=== PATIENT | female | born 1970 | race Caucasian/White ===

== ENCOUNTER → 2019-10-02 13:44 | Outpatient (CLI) | payer OTHER, SELFPAY ==
--- NOTE | ~2019-10-02 | US_ITS ---
US breast LT limited Indication: Follow-up left breast mass Procedure: High resolution ultrasound of the left breast Comparison: 04/03/2019 Findings: There is a 1.3 cm simple cyst at 8:00, 4 cm from the nipple. There is an adjacent 3 mm cyst . No suspicious masses are identified to suggest malignancy. Impression: 1: Left breast cysts. No sonographic evidence for malignancy. BI-RADS CATEGORY 2 - BENIGN FINDINGS Reviewed, dictated and finalized at location A. Impression: 1: Left breast cysts. No sonographic evidence for malignancy. BI-RADS CATEGORY 2 - BENIGN FINDINGS
== END ==
PROVIDERS: PCP Internal Medicine; Visit Provider Obstetrics & Gynecology Gynecology
DX: R92.8 Other abnormal and inconclusive findings on diagnostic imaging of breast (principal); N60.02 Solitary cyst of left breast
CPT/HCPCS: 76642

== ENCOUNTER → 2020-03-20 14:47 | Outpatient (CLI) | payer OTHER, SELFPAY ==
--- NOTE | ~2020-03-20 | US_ITS ---
US transvaginal DATE: 03/20/2020 15:24 INDICATION: Bilateral ovarian cysts TECHNIQUE: Transvaginal examination of the pelvis COMPARISON: None FINDINGS: The uterus measures 7.8 cm height, 3.3 cm AP and 4.1 cm transverse dimension. The central endometrial echo complex measures approximately 6 mm AP dimension. The ovaries are not well demonstrated. No pelvic mass or abnormal pelvic free fluid collection is det ected. IMPRESSION: Ovaries are not well demonstrated Reviewed, dictated and finalized at Location A. Reviewed, dictated and finalized at location A.
== END ==
PROVIDERS: Visit Provider Nurse Practitioner
DX: N83.201 Unspecified ovarian cyst, right side (principal); N83.202 Unspecified ovarian cyst, left side
CPT/HCPCS: 76830

== ENCOUNTER → 2020-04-22 18:18 | Outpatient (CLI) | payer OTHER, SELFPAY ==
--- NOTE | ~2020-04-22 | MM_ITS ---
EXAMINATION: MM screening salo BI w brittney HISTORY: Screening TECHNIQUE: Craniocaudal and mediolateral oblique 3-D tomosynthesis images were obtained and synthetic 2-D images were generated. CAD analysis was submitted and interpreted. COMPARISON: Comparison to multiple prior studies sequentially, with oldest reviewed study dated 11/2010. BREAST PARENCHYMAL COMPOSITION: There are scattered areas of fibroglandular density. FINDINGS: There is no evidence of suspicious mass, calcification, or architectural distortion to sugg est malignancy in either breast. There has been no suspicious interval change. IMPRESSION: 1. No mammographic evidence of malignancy. 2. Recommend routine screening mammography in one year. BI-RADS Category 1: Negative Reviewed, dictated and finalized at location A.
== END ==
PROVIDERS: PCP Internal Medicine; Visit Provider Nurse Practitioner
DX: Z12.31 Encounter for screening mammogram for malignant neoplasm of breast (principal)
CPT/HCPCS: 77063; 77067

== ENCOUNTER → 2021-05-09 09:57 | Outpatient (CLI) | payer OTHER, SELFPAY ==
--- NOTE | ~2021-05-09 | MM_ITS ---
EXAMINATION: MM screening salo BI w brittney HISTORY: Screening mammogram TECHNIQUE: Craniocaudal and mediolateral oblique 3-D tomosynthesis images were obtained and synthetic 2-D images were generated. CAD analysis was submitted and interpreted. COMPARISON: 04/22/2020 bilateral digital screening mammogram 10/02/2019 limited left breast ultrasound 04/03/2019 diagnostic bilateral mammogram and limited left breast ultrasound 03/27/2018 bilateral screening mammogram BREAST PARENCHYMAL COMPOSITION: There are scattered areas of fibroglandular density. FINDINGS: Chronic approximately 1 cm anterior lower inner quadrant left breast benign oil cyst with p eripheral eggshell calcification. There is no evidence of suspicious mass, calcification, or architec tural distortion to suggest malignancy in either breast. There has been no suspicious interval change . IMPRESSION: 1. No mammographic evidence of malignancy. 2. Recommend routine screening mammography in one year. BI-RADS Category 2: Benign finding(s). Reviewed, dictated and finalized at location A.
--- NOTE | ~2021-05-09 | DEXA_ITS ---
Bone Density Report Name: Vangie Yuen Age: 50 Sex: Female Ethnicity: White Date of : 1970 Indication: postmenopausal; screening for osteoporosis; parental hip fracture; Referring Provider: Lupillo, Nkechi Study: Bone densitometry was performed. Exam Date: May 09, 2021 Accession number: [id number] Bone Density: Region BMD T-score Z-score Classification AP Spine (L1-L4) 1.334 2.6 3.5 Normal Femoral Neck (Left) 1.206 3.2 4.1 Normal Total Hip (Left) 1.157 1.8 2.3 Normal Femoral Neck (Right) 1.049 1.8 2.7 Normal Total Hip (Right) 1.056 0.9 1.5 Normal Total Hip Mean 1.107 1.4 1.9 Normal World Health Organization criteria for BMD impression classify patients as: Normal (T-score at or above -1.0), Osteopenia (T-score between -1.0 and -2.5), or Osteoporosis (T-score at or below -2.5). 10-year Fracture Risk: FRAX not reported because: All T-scores for Spine Total, Hip Total, Femoral Neck at or above -1.0 Clinical Information Provided by Patient: Parent has had a hip fracture Has used the following medications: Vitamin D, Calcium Patient maximum height was 59.75 Menopause Age: 41 No regular weight bearing exercise Drinks caffeinated beverages Onset of menses at age 15 Number of children 2 Impression: The patient has normal bone mass. The patient has risk factors, including: parental hip fracture. Discussion: BONE DENSITY IS ABOVE THE MINIMUM DESIRABLE LEVEL AT ALL SKELETAL SITES TESTED. This patient?s bone mineral density is above the minimum desirable level (T-score -1.0 or better) at all sites measured. The patient should follow a healthful lifestyle (good nutrition with adequate calcium and vitamin D, and appropriate weight-bearing exercise). Follow-Up: Consider repeating this study in 5 years or sooner if there is some new clinical indication. Reported by: HREBERT on 05/09/2021 10:54:00 AM. Reviewed, dictated and finalized at location Jordan KELLEY
== END ==
PROVIDERS: PCP Internal Medicine; Visit Provider Nurse Practitioner
DX: Z12.31 Encounter for screening mammogram for malignant neoplasm of breast (principal); Z78.0 Asymptomatic menopausal state
CPT/HCPCS: 77063; 77067; 77080

== ENCOUNTER → 2022-06-28 15:19 | Outpatient (CLI) | payer OTHER, SELFPAY ==
--- NOTE | ~2022-06-28 | MM_ITS ---
EXAMINATION: MM screening salo BI w brittney HISTORY: Screening TECHNIQUE: Craniocaudal and mediolateral oblique 3-D tomosynthesis images were obtained and synthetic 2-D images were generated. CAD analysis was submitted and interpreted. COMPARISON: Comparison to multiple prior studies sequentially, with oldest reviewed study dated 04/18. BREAST PARENCHYMAL COMPOSITION: There are scattered areas of fibroglandular density. FINDINGS: There is no evidence of suspicious mass, calcification, or architectural distortion to sugg est malignancy in either breast. There has been no suspicious interval change. IMPRESSION: 1. No mammographic evidence of malignancy. 2. Recommend routine screening mammography in one year. BI-RADS Category 1: Negative Reviewed, dictated and finalized at location B. RVISOR PARTICLEBOARD
== END ==
PROVIDERS: Visit Provider Nurse Practitioner
DX: Z12.31 Encounter for screening mammogram for malignant neoplasm of breast (principal)
CPT/HCPCS: 77063; 77067

== ENCOUNTER 2024-01-18 16:48 | Emergency (ER) | payer OTHER, SELFPAY ==
--- NOTE | ~2024-01-18 | CT_ITS ---
CT abdomen pelvis w con Ordering provider: Khushbu Osborn APRN History: 53 years Female with . abdominal pain . Comparison: None. Technique: CT abdomen and pelvis with IV and without oral contrast. Automated exposure control and it erative reconstruction technique were employed. The dose-length product was 1599.14 mGy-cm. 100 mL Om nipaque 350 was given IV. Findings: VISUALIZED LOWER CHEST: Dependent atelectatic changes in the right lung base. UPPER ABDOMINAL ORGANS: Liver: Multiple cysts in the liver the largest measures 14 x 10 cm. Slightly hypodense area near to t he diaphragm on the right side which may be compressed tissue but hematoma cannot be excluded. Follow -up advised. Gallbladder: Normal. Spleen: Normal. Stomach/duodenum: Normal. Pancreas: Normal. Adrenals: Normal. Kidneys: Bilateral multiple. Tiny stone in the right and left kidney midpole. Renal cysts PELVIC ORGANS: The bladder is normal. Uterus is normal. BOWEL AND MESENTERY: Colon: No evidence of diverticulitis. Fecal material is seen in the colon. Appendix is not demonstrat ed. Small Bowel: Normal. No obstruction. Peritoneum/mesentery: No free air. Minimal free fluid seen in the pelvis. No mesenteric lymphadenopat hy. RETROPERITONEUM: Normal aorta. No retroperitoneal lymphadenopathy. MUSCULOSKELETAL: Superficial soft tissues: The superficial soft tissues are normal. Bones: Age appropriate degenerative changes of the spine. IMPRESSION: 1. No evidence of appendicitis, diverticulitis or intestinal obstruction. 2. Polycystic disease with cysts seen in the liver and both kidneys. Minimal free fluid in the pelvis. 3. Constipation 4. Minimal atelectatic changes in the right lung base. Reviewed, dictated and finalized at location A.
[2024-01-18 16:49] VITALS: BP 144/87; PULSE 97; RESP 16; TEMP 36.9; O2SAT 99
--- NOTE | 2024-01-18 17:42 | ED.GENADULT ---
HPI - General Adult General Chief complaint: Abdominal Pain <Khushbu Meléndez November, - Last Filed: 01/18/24 17:55> Stated complaint: impacted bowel <Khushbu Meléndez November, - Last Filed: 01/18/24 17:55> Time Seen by Provider: 01/18/24 17:42 <Khushbu Meléndez November, - Last Filed: 01/18/24 17:55> Focused HPI: Vangie Yuen is a 53 y/o female On January 07 between 8-10PM she started to have pain to her abdomen and right shoulder with a deep breath, She went to an OSH on January 08 she learned she had a 15cm cyst on liver - they drained it at a procedure place and had 750mls of fluid out which they believed it was a smaller one so they went back in and hit the 15cm one and drained a lot more fluid - she felt better then she started to have severe right shoulder pain and right lower abdominal pain so she was then admitted for pain control she was given narcotics for pain and now she has not had a BM since January 08, she states that she had to get another CT during her admission because she was having so much pain and they found a small bleed on her liver from the procedure and then they repeated the image and then noticed that the bleeding was up to a 'Medium' bleed - she states she was then d/c and they told her that this would happen and she would likely be in pain for 6-10 weeks She states her pain now is about as bad as it was when she was admitted in the hospital and now she is constipated she has tried enemas and suppositories at home without relief Last time she ate at 1100 GENERAL: no acute distress. HEAD: Normocephalic, atraumatic. CHEST: Clear to auscultation. ?No respiratory distress. HEART: Regular rate and rhythm.? NEURO: ?Alert and oriented x3. Patient screened in triage and initial orders placed.? ?Additional care and disposition to be based upon?diagnostic testing and treatment. <Khushbu Meléndez November, - Last Filed: 01/18/24 17:55> Focused HPI: Vangie Yuen is a 53 y/o female On January 07 between 8-10PM she started to have pain to her abdomen and right shoulder with a deep breath, She went to an OSH on January 08 she learned she had a 15cm cyst on liver - they drained it at a procedure place and had 750mls of fluid out which they believed it was a smaller one so they went back in and hit the 15cm one and drained a lot more fluid - she felt better then she started to have severe right shoulder pain and right lower abdominal pain so she was then admitted for pain control she was given narcotics for pain and now she has not had a BM since January 08, she states that she had to get another CT during her admission because she was having so much pain and they found a small bleed on her liver from the procedure and then they repeated the image and then noticed that the bleeding was up to a 'Medium' bleed - she states she was then d/c and they told her that this would happen and she would likely be in pain for 6-10 weeks She states her pain now is about as bad as it was when she was admitted in the hospital and now she is constipated she has tried enemas and suppositories at home without relief Last time she ate at 1100 GENERAL: no acute distress. HEAD: Normocephalic, atraumatic. CHEST: Clear to auscultation. ?No respiratory distress. HEART: Regular rate and rhythm.? NEURO: ?Alert and oriented x3. Patient screened in triage and initial orders placed.? ?Additional care and disposition to be based upon?diagnostic testing and treatment. <Akiko Elias PA-C - Last Filed: 01/18/24 20:30> Source: patient <Akiko Elias PA-C - Last Filed: 01/18/24 20:30> Mode of arrival: ambulatory <JONATHAN Chawla Last Filed: 01/18/24 20:30> Limitations: no limitations <Akiko Elias PA-C - Last Filed: 01/18/24 20:30> History of Present Illness HPI narrative: Agree with above MSE HPI. Patient has hx of Polycystic kidney disease. Reports procedures occurred in [facility] when she wa
[2024-01-18 18:14] VITALS: BP 145/98; PULSE 94; RESP 18; O2SAT 98
[2024-01-18 18:20] LABS: Basophils Absolute Auto 0.1 K/mm3 (0.0-0.1); Basophils Percent Auto 0.6 % (0.2-1.2); Eosinophils Absolute Auto 0.3 K/mm3 (0-0.3); Eosinophils Percent Auto 2.8 % (0-4.4); Hemoglobin 12.5 g/dL (12.0-15.0); Immature Granulocyte Percent A 1.1 % (0-0.5); Lymphocytes Absolute Auto 1.81 K/mm3 (0.9-3.2); Lymphocytes Percent Auto 19.9 % (18.3-44.2); Mean Corpuscular HGB Conc 33.8 g/dl (32-36); Mean Corpuscular Hemoglobin 28.3 pg (26-34); Mean Corpuscular Volume 83.9 fl (80-100); Mean Platelet Volume 10.8 fl (7.4-10.4); Monocytes Absolute Auto 0.5 K/mm3 (0.1-0.6); Monocytes Percent Auto 5.4 % (2.6-8.5); Neutrophils Absolute Auto 6.4 K/mm3 (1.3-6.7); Neutrophils Percent Auto 70.2 % (45.5-73.1); Platelet Count Result 329 k/mm3 (150-375); Red Blood Count 4.41 M/mm3 (4.2-5.4); Red Cell Distribution Width 14.6 % (11.5-14.5); White Blood Count 9.1 K/mm3 (4.5-10.0)
[2024-01-18 18:21] LABS: Appearance Urine Clear (Clear); Bilirubin Urine Negative (Negative); Blood Urine Negative (Negative); Color Urine Yellow (Yellow); Glucose Urine UA Negative (Negative); Ketones Urine Negative (Negative); Leukocyte Esterase Ur Negative LEU/UL (Negative); Nitrate Urine Negative (Negative); Protein Urine Negative (Negative); Specific Grav Ur 1.009 (1.001-1.035)
[2024-01-18 18:29] LABS: Alanine Aminotransferase 30 U/L (6-35); Albumin Level 4.6 g/dL (3.5-5.1); Alkaline Phosphatase 150 U/L (38-126); Anion Gap 7 mmol/L (4-12); Aspartate Amino Transferase 39 U/L (14-36); Bilirubin,Total 1.3 mg/dL (0.2-1.3); Blood Urea Nitrogen 15 mg/dL (7-17); Calcium 9.2 mg/dL (8.4-10.2); Carbon Dioxide 27 mmol/L (22-30); Chloride 104 mmol/L (98-107); Estimated CRCL calculation 77 ml/min; Estimated Glomerular Filt Rate 58; Glucose 108 mg/dL (65-110); Lipase 26 U/L (23-300); Potassium 4.5 mmol/L (3.4-5.0); Sodium 138 mmol/L (137-145)
[2024-01-18 18:30] LABS: Lactic Acid Reflex 1.1 mmol/L (0.7-2.0)
[2024-01-18 18:35] LABS: Add Urine Microscopic? NO
--- NOTE | 2024-01-18 19:19 | PC.NURSE ---
Assumed care of pt from Jo SALES.
[2024-01-18] MEDS: BISACODYL 5 MG TABLET EC PO (19:49)
[2024-01-18] MEDS: polyethylene glycoL 3350 17 GM POWD.PACK PO (19:50)
== END 2024-01-18 20:43 | disposition home or self-care (01) ==
PROVIDERS: Nurse Practitioner Family; Emergency Provider Physician Assistant; PCP Family Medicine
DX: K59.00 Constipation, unspecified (principal); S36.112A Contusion of liver, initial encounter; N18.9 Chronic kidney disease, unspecified; E11.22 Type 2 diabetes mellitus with diabetic chronic kidney disease
CPT/HCPCS: 36415; 74177; 80053; 81003; 83605; 83690; 85025; 99284; A9270; Q9967

== ENCOUNTER 2024-02-16 14:06 | Outpatient (CLI) | payer OTHER, SELFPAY ==
--- NOTE | ~2024-02-16 | US_ITS ---
EXAMINATION: US renal BI DATE: 02/16/2024 15:39 INDICATION: Polycystic kidney disease TECHNIQUE: Multiple ultrasound grayscale images of the kidneys were obtained. COMPARISON: None. FINDINGS: The right kidney measures 13.8 x 4.3 x 4.6 cm. The left kidney measures 14.9 x 6.6 x 5.8 cm. The kidn eys demonstrate normal echogenicity. There are multiple bilateral renal cysts. The largest on the rig ht measures 4.9 cm and the largest on the left measures 5.0 cm. There is no hydronephrosis in either kidney. No stones identified. The bladder is normal with bilateral ureteral jets visualized on color Doppler. IMPRESSION: 1. Multiple bilateral renal cysts. No hydronephrosis. Reviewed, dictated and finalized at location A.
== END 2024-02-16 14:07 | disposition home or self-care (01) ==
LOC: ANHIMG 14:09
PROVIDERS: PCP Family Medicine; Visit Provider Internal Medicine Nephrology
DX: Q61.3 Polycystic kidney, unspecified (principal); N18.31 Chronic kidney disease, stage 3a
CPT/HCPCS: 76775

== ENCOUNTER 2024-07-10 04:58 | Emergency (ER) | payer OTHER, SELFPAY ==
[2024-07-10 05:34] VITALS: O2SAT 96
[2024-07-10 05:46] VITALS: O2SAT 95
[2024-07-10 05:48] LABS: Add Urine Microscopic? YES; Appearance Urine Clear (Clear); Bacteria Urine None Seen /hpf; Bilirubin Urine Negative (Negative); Blood Urine 1+ (Negative); Color Urine Yellow (Yellow); Glucose Urine UA Negative (Negative); Ketones Urine Negative (Negative); Leukocyte Esterase Ur 3+ LEU/UL (Negative); Need Manual Microscopic Reviewed; Nitrate Urine Negative (Negative); Non Pathogenic Casts 0-2; Protein Urine Negative (Negative); RBC Urine 0-2 /hpf (0-2); Specific Grav Ur 1.003 (1.001-1.035); Squamous Epithelial Cell Urine None Seen /hpf (Few); Urobilinogen Urine 0.2 mg/dL (<2.0); WBC Urine 21-50 /hpf (0-3); pH Urine 6.5 (5.0-9.0)
[2024-07-10] MEDS: PHENAZOPYRIDINE HCL 100 MG TABLET 200 MG PO (06:05)
[2024-07-10 06:06] VITALS: BP 138/98; PULSE 87; RESP 15; O2SAT 99
[2024-07-10 06:08] LABS: Pregnancy On Board Control Positive; Urine Pregnancy Test Negative
--- NOTE | 2024-07-10 06:08 | ED.FEMALEGU ---
HPI - Female Genitourinary General Chief complaint: Urogenital-Female Stated complaint: UTI, burning, frequeny, kidney pain, nausea Time Seen by Provider: 07/10/24 05:54 History of Present Illness HPI Narrative: Patient is a 54-year-old female who presents to the emergency department this evening complaining of UTI symptoms. Patient states that she has been having dysuria for the past few days and now it radiates to her left kidney. Admits that she does have some constant left kidney ache. Denies any history of kidney stones. Pain is not colicky. Admits that the dysuria is an 8/10. Denies any fevers or chills. No additional symptoms or concerns at this time. Related Data Home Medications ?Medication ?Instructions ?Recorded ?Confirmed ?Last Taken ?Type bupropion HCl 200 mg tablet,12 hr 200 mg PO DAILY 03/22/23 07/06/24 Unknown History sustained-release hydroxyzine HCl 10 mg tablet 10 mg PO TID PRN 03/22/23 07/06/24 Unknown History hydroxyzine pamoate 50 mg capsule 50 mg PO QHS 03/22/23 07/06/24 Unknown History lamotrigine 200 mg tablet 200 mg PO BID 03/22/23 07/06/24 Unknown History (Lamictal) quetiapine 300 mg tablet (Seroquel) 300 mg PO QHS 04/11/24 07/06/24 Unknown History Allergies Allergy/AdvReac Type Severity Reaction Status Date / Time cefazolin Allergy Mild COUGHING Verified 07/06/24 10:55 FITS doxycycline Allergy Mild sob Verified 07/06/24 10:55 hydrocodone Allergy Mild Itching Verified 07/06/24 10:55 morphine Allergy Mild Itching Verified 07/06/24 10:55 oxycodone Allergy Mild Itching Verified 07/06/24 10:55 Sulfa (Sulfonamide Allergy Mild sob Verified 07/06/24 10:55 Antibiotics) Review of Systems Review of Systems: All systems are reviewed and are negative unless stated otherwise in the HPI. [facility] Past Medical History Medical History PTSD (post-traumatic stress disorder) Gastric leiomyoma Polycystic kidney Heel spur Left ankle sprain Arthritis LINDSAY (generalized anxiety disorder) Chronic kidney disease Diabetes mellitus Surgical History Surgical History H/O esophagogastroduodenoscopy S/P surgical manipulation of ankle joint Family History Family History Mother Alcohol abuse Father Malignant neoplasm of prostate Other Depression Hodgkin lymphoma Social History Social History Social History: Smoking status: Never smoker Second hand tobacco smoke exposure: No Alcohol intake: never Substance use: never Substance use type: does not use Do You Feel Safe in your Home?: Yes Lack of Transportation: No Lack of Food: Never True Current Housing: I Have Housing Concerned About Future Housing: No Difficulty Paying Gas/Electric Bills: No Difficulty Paying for Meds: No Currently Unemployed: YES Education: High School Diploma/GED Difficulty w/ Childcare or Family Care: No Living arrangements: with family Occupation/Education: unemployed Gender identity (if verbalized by the patient): Female Sexual Orientation (if Verbalized by the Patient): Straight or Heterosexual Exam Narrative: General: Alert, awake, afebrile, in no acute distress. HEENT: PERRL, no rhinorrhea, no post nasal drip, oropharynx clear. Neck: Trachea midline, no JVD, no lymphadenopathy. Cardiovascular: Regular rate and rhythm, no murmurs, rubs or gallops, no peripheral edema. Respiratory: Clear to auscultation bilaterally, no tachypnea, no wheezing, no rhonchi, no rubs, no respiratory distress. Abdomen: Soft, nontender, nondistended, no rebound, no guarding, no peritoneal signs. Musculoskeletal: No joint swelling or deformity, normal muscle tone. Skin: No rashes or petechia, no signs of infection. Psychiatric: Alert and oriented, normal behavior and judgment for situation. Neurological: Alert and oriented to person, place, and time. Follows all commands. No focal deficits, speech is clear and fluent. Course Vital Signs Vital signs: Vital Signs Pulse Oximetry 96 07/10/24 05:34 Pulse Rate 87 07/10/24 06:06 Respiratory Rate 15 07/10/24 06:06 Blood Pressure 138/98 H 07/10/24 06:06 Pulse Oximetry 99 07/10/24 06:06 MDM - Female Genitourinary MDM Narrative Medical decision making narrative: The patient was evaluated by myself in the emergency department. History is obtained from patient who is an independent historian and physical exam was performed. External medical records were reviewed at this time. Urinalysis did reveal urinary tract infection. Patient was administered 200 mg of oral Pyridium and her 1st dose of Macrobid in the emergency department. She was also administered 50 mg of IM Toradol and a Adrian pill to help with her pain while the antibiotic kicks in. Differential diagnosis considerations include urinary tract infection, pyelonephritis, kidney stones. Comorbidities impacting this visit include none. I have evaluated and discussed social determinants of health with the patient that could potentially impact subsequent diagnosis and treatment plans. On repeat assessment of the patient, reevaluation revealed that the patient is doing well and is in no acute distress. Patient symptoms have improved since she arrived to our emergency department. Repeat vital signs were all reviewed and noted to be stable. Differential diagnosis and treatment plan were discussed with the patient at bedside. Patient agrees with discussion and after shared medical decision making agrees with discharge. All questions were answered to the patient's satisfaction. Patient will follow up with her PCP in 3-5 days. Script for Macrobid and Pyridium were sent to patient's pharmacy to take as prescribed for her UTI. Patient was informed that if her symptoms do not improve within the next 2-3 days that she needs to call to find out her culture results as she may need to be placed on a different antibiotic ciprofloxacin given her multiple medication allergies and patient is agreeable with this plan. Patient was provided with strict return precautions and instructed to return to the emergency department if any new or worsening symptoms develop. The patient was discharged in stable condition. Lab Data Labs: Lab Results 07/10/24 Range/Units 05:10 Urine Color Yellow (Yellow) Urine Appearance Clear (Clear) Urine pH 6.5 (5.0-9.0) Ur Specific [place] 1.003 (1.001-1.035) Urine Protein Negative (Negative) mg/dL Urine Glucose (UA) Negative (Negative) mg/dL Urine Ketones Negative (Negative) mg/dL Ur Blood (Man) 1+ H (Negative) Urine Nitrate Negative (Negative) Urine Bilirubin Negative (Negative) Urine Urobilinogen 0.2 (<2.0) mg/dL Add Ur Microanalysis Reviewed Leukocyte Esterase Rfl 3+ H (Negative) ALEX/UL Urine RBC 0-2 (0-2) /hpf Urine WBC 21-50 H (0-3) /hpf Ur Squamous Epith Cells None seen (Few) /hpf Urine Bacteria None seen /hpf Urine Casts 0-2 Urine Test Negative Discharge Plan Discharge Clinical Impression: UTI (urinary tract infection) Patient Disposition: Home, Self-Care Condition: Improved Instructions: Antibiotic Form, Urinary Tract Infection in Women (ED) Additional Instructions: Please take the prescribed pyridium and antibiotic as instructed for UTI. Return to the emergency department if any new or worsening symptoms develop. Patient Language: Guatemalan Prescriptions: New nitrofurantoin monohyd/m-cryst [Macrobid] 100 mg capsule 100 mg PO Q12H 5 Days Qty: 10 0RF Rx Instructions: must administer with a meal/food phenazopyridine [Pyridium] 200 mg tablet 200 mg PO TID Qty: 5 0RF nitrofurantoin macrocrystal 100 mg capsule 100 mg PO Q12H Qty: 5 5RF Rx Instructions: must administer with a meal/food phenazopyridine [Pyridium] 200 mg tablet 200 mg PO TID Qty: 5 0RF hydrocodone-acetaminophen 5-325 mg tablet 1 tablet PO Q8H PRN (Reason: pain) Qty: 7 0RF No Action bupropion HCl 200 mg tablet sustained-release 12 hr 200 mg PO DAILY lamotrigine [Lamictal] 200 mg tablet 200 mg PO BID hydroxyzine pamoate 50 mg capsule 50 mg PO QHS hydroxyzine HCl 10 mg tablet 10 mg PO TID PRN quetiapine [Seroquel] 300 mg tablet 300 mg PO QHS montelukast 10 mg tablet See Rx Instructions .ROUTE .COMPLEX Qty: 90 1RF Dose Instruction: TAKE 1 TABLET BY MOUTH EVERY DAY Rx Instructions: TAKE 1 TABLET BY MOUTH EVERY DAY azelastine 137 mcg (0.1 %) spray,non-aerosol 137 mcg intranasal Q12H Qty: 30 0RF Rx Instructions: administer into each nostril fluticasone propionate 50 mcg/actuation spray,suspension 1 spray intranasal DAILY Qty: 16 0RF Rx Instructions: administer into each nostril furosemide 40 mg tablet See Rx Instructions .ROUTE .COMPLEX Qty: 90 1RF Dose Instruction: TAKE 1 TABLET BY MOUTH EVERY MORNING Rx Instructions: TAKE 1 TABLET BY MOUTH EVERY MORNING metformin 500 mg tablet extended release 24 hr See Rx Instructions .ROUTE .COMPLEX Qty: 90 1RF Dose Instruction: TAKE 1 TABLET BY MOUTH EVERY DAY AT BEDTIME Rx Instructions: TAKE 1 TABLET BY MOUTH EVERY DAY AT BEDTIME (DME) blood-glucose meter [OneTouch Verio Flex Start] Kit See Rx Instructions .Route Qty: 1 0RF Rx Instructions: use to monitor blood sugar daily (DME) lancets [OneTouch Delica Plus Lancet] 33 gauge misc See Rx Instructions .Route Qty: 100 0RF Rx Instructions: use to monitor blood sugar daily (DME) OneTouch Ultra Test Strip See Rx Instructions .Route Qty: 100 0RF Rx Instructions: use to monitor blood sugar daily Follow-up/Referrals: Marleni Jung MD [Primary Care Provider] - 3 Days Time of Disposition: 06:27
[2024-07-10] MEDS: HYDROcodone/acetaminophen (*CRX) 5-325 MG TABLET 1 TAB PO (06:17)
[2024-07-10] MEDS: NITROFURANTOIN MONOHYD MACROCR 100 MG CAP PO (06:17)
[2024-07-10] MEDS: KETOROLAC 30 MG/ML VIAL (*BKC) 15 MG IM (06:18)
--- OUTSIDE RECORDS SUMMARY | 2024-07-17 03:06 | XMS_ITS | Clinical Summary ---
Author Organization [facility] Address [address] [place] [address] Care Team Providers Care Male Impersonator Name Role Phone Marleni Jung Primary Care Provider [phone] Allergies Active Allergy Reactions Criticality Noted Date Comments Cefazolin Cough 01/09/2024 Doxycycline Cough 01/09/2024 Hydrocodone PRURITUS 01/10/2024 Sulfa Antibiotics RASH 01/09/2024 Medications Medication Sig Dispensed Refills Start Date End Date Status buPROPion (WELLBUTRIN SR) 200 MG 12 hr tablet Take 200 mg by mouth every morning. 12/19/2023 Active furosemide (LASIX) 40 MG tablet Take 40 mg by mouth every morning. 10/31/2023 Active hydrOXYzine (ATARAX) 10 MG tablet Take 10 mg by mouth 3 times daily as needed. 12/20/2023 Active hydrOXYzine (ATARAX) 50 MG tablet Take 50 mg by mouth at bedtime. 12/20/2023 Active lamoTRIgine (LaMICtal) 25 MG tablet Take 50 mg by mouth in the morning and 50 mg in the evening. 12/18/2023 Active metFORMIN (GLUCOPHAGE-XR) 500 MG 24 hr tablet Take 500 mg by mouth daily. 01/08/2024 Active montelukast (SINGULAIR) 10 MG tablet Take 10 mg by mouth daily. 10/30/2023 Active QUEtiapine (SEROquel XR) 300 MG 24 hr tablet Take 300 mg by mouth at bedtime. 12/22/2023 Active acetaminophen (TYLENOL) 500 MG tablet Take 2 tablets by mouth every 6 hours as needed for Pain. 01/11/2024 Active ketorolac (TORADOL) 10 MG tablet Take 1 tablet by mouth every 6 hours as needed for Pain. 20 tablet 01/11/2024 Active traMADol (ULTRAM) 50 MG tabletIndications: Abdominal pain, right upper quadrant,Hepatic cyst Take 1 tablet by mouth every 6 hours as needed for Pain. 10 tablet 01/11/2024 Active oxyCODONE-acetamin ophen (Percocet) 5-325 MG per tabletIndications: Referred abdominal pain Take 1-2 tablets by mouth every 6 hours as needed for Pain (Not to exceed 4000 mg acetaminophen per day). 13 tablet 01/13/2024 Active Active Problems Problem Noted Date Diagnosed Date Abdominal pain, right upper quadrant 01/09/2024 Surgical History Surgery Date Site/Laterality Comments CHOLECYSTECTOMY SECTION, LOW TRANSVERSE Medical History Medical History Date Comments Diabetes mellitus (CMD) Social History Tobacco Use Types Packs/Day Years Used Date Smoking Tobacco: Never Passive Smoke Exposure: Past Smokeless Tobacco: Never Tobacco Cessation:Counseling Given: Not Answered Alcohol Use Standard Drinks/Week Comments Yes 0 (1 standard drink = 0.6 oz pur e alcohol) Utilities Answer Date Recorded In the past 12 months has e [employer], gas, oil, or water [employer] threatened to shut off services in your home? No 01/09/2024 PHQ-2 Answer Date Recorded Initial depression screening score: 0 01/09/2024 Social Connections Answer Date Recorded How often do you see or talk to people that you care about and feel close to? (For example: talking to friends on the phone, visiting friends or family, going to spiritism or club meetings) 5 or more times a week 01/09/2024 Alcohol Use Answer Date Recorded Audit C Total Score 0 01/09/2024 Financial Resource Strain Answer Date R ecorded In the past year, have you o r any family members you live with been unable to get any of the following when it was really needed? Check all that apply. None 01/09/2024 Inadequate Housing Answer Date Recorded Social Determinants: Housing (Overall Score Help er) 0 01/09/2024 Food Insecurity Answer Date Recorded Within the past 12 months, y ou worried that your food would run out before you got money to buy more.? Never true 01/09/20 Within the past 12 months, t he food you bought just didn't last and you didn't have money to get more.?? Never true 01/09/20 Inadequate Housing Answer Date Recorded What is your living situation today??? I have a steady place to live 01/09/2024 Do you have problems with an y of the following??? None of the above 01/09/2024 Interpersonal Safety Answer Date Record ed How often does anyone, olesya quiroz family and friends, physically hurt you??? Never 01/09/2024 How often does anyone, olesya quiroz family and friends, insult or talk down to you? Never 01/09/2024 How often does anyone, olesya quiroz family and friends, threaten you with harm??? Never 01/09/2024 How often does anyone, olesya quiroz family and friends, scream or curse at you??? Never 01/09/2024 Transportation Needs Answer Date Record ed In the past 12 months, has l ack of reliable transportation kept you from medical appointments, meetings, work or from getting things needed for daily living??? No 01/09/2024 Sex and Gender Information Value Date Recorded Sex Assigned at Not on file Gender Identity Not on file Sexual Orientation Not on file Job Start Date Occupation Industry Not on file Not on file Not on file Obstetrics History Last Filed Vital Signs Vital Sign Reading Time Taken Comments Blood Pressure 135/77 01/13/2024 9:59 AM CDT Pulse 79 01/13/2024 9:59 AM CDT Temperature 36.6 ??C (97.9 ??F) 01/13/2024 6:49 AM CD T Respiratory Rate 16 01/13/2024 9:59 AM CDT Oxygen Saturation 94% 01/13/2024 9:59 AM CDT Inhaled Oxygen Concentration - - Weight 115.7 kg (255 lb 1.2 oz) 01/13/2024 6:49 AM CDT Height 175.3 cm (5' 9 ) 01/13/2024 6:49 AM CDT Body Mass Index 37.67 01/13/2024 6:49 AM CDT Plan of Treatment Health Maintenance Due Date Last Done Comments Diabetes A1C 1987 Diabetes Eye Exam 1987 Diabetes Foot Exam 1987 Microalbumin Ratio 1987 Hepatitis B Vaccine (1 of 3 - 19+ 3-dose series) 1988 Pap Smear 1990 Cervical Cancer Screening 1999 HPV/Cotest 1999 DTaP/Tdap/Td Vaccine (1 - Tdap) 07/19/2000 07/18/2000 Breast Cancer Screening 2009 CT Colonography 2014 Cologuard 2014 Colonoscopy 2014 Colorectal Cancer Screen 2014 Fecal Occult Blood 2014 Sigmoidoscopy 2014 Shingles Vaccine (1 of 2) 2019 COVID-19 Vaccine (1 - 2023- season) 2024 Influenza Vaccine (#1) 2024 05/24/2008 Depression Screening 01/08/2025 01/09/2024 GFR 01/12/2025 01/13/2024, 12/17, 01/10/2024, Additional history exists HPV Vaccine Aged Out No longer eligi ble based on patient's age to complete this topic Meningococcal Vaccine Aged Out No binta estefany eligible based on patient's age to complete this topic Pneumococcal Vaccine 0-64 Aged Out No longer eligible based on patient's age to complete this topic Procedures Procedure Name Priority Date/Time Associated Diagnosis Comments COMPREHENSIVE METABOLIC PANEL STAT 01/13/2024 7:10 AM CDT from Last 3 Months or Most Recently Relevant to Health Maintenance Results * (ABNORMAL) Comprehensive Metabolic Panel (01/13/2024 7:10 AM CDT) Fasting Status 01/13/2024 7:38 AM CDT [facility] Sodium 138 135 - 145 mmol/L 01/13/2024 7:38 AM CDT [facility] Potassium 3.6 3.4 - 5.1 mmol/L 01/13/2024 7:38 AM CDT [facility] Chloride 104 97 - 110 mmol/L 01/13/2024 7:38 AM CDT [facility] Carbon Dioxide 30 21 - 32 mmol/L 01/13/2024 7:38 AM CDT [facility] Anion Gap 8 7 - 19 mmol/L 01/13/2024 7:38 AM CDT [facility] Glucose 143(H) 70 - 99 mg/dL 01/13/2024 7:38 AM [facility] BUN 20 6 - 20 mg/dL 01/13/2024 7:38 AM [facility] Creatinine 1.16(H) 0.51 - 0.95 mg/dL 01/13/2024 7:38 AM [facility] Glomerular Filtration Rate 56(L) >=60 01/13/2024 7:38 AM [facility] Comment:eGFR 30-59 mL/min/1. 73m2 = Moderate decrease in kidney function. Stage 3 CKD (chronic kidney disease) or moderate kidney disease. Estimated GFR calculated using the CKD-EPI-R (2020) equation that does not include race in the creatinine calculation. BUN/Cr 17 7 - 25 01/13/2024 7:38 AM [facility] Calcium 8.9 8.4 - 10.2 mg/dL 01/13/2024 7:38 AM [facility] Bilirubin, Total 0.7 0.2 - 1.0 mg/dL 01/13/2024 7:38 AM [facility] GOT/AST 16 <=37 Units/L 01/13/2024 7:38 AM [facility] GPT/ALT 18 <64 Units/L 01/13/2024 7:38 AM [facility] Alkaline Phosphatase 119(H) 45 - 117 Units/L 01/13/2024 7:38 AM [facility] Albumin 3.0(L) 3.6 - 5.1 g/dL 01/13/2024 7:38 AM [facility] Protein, Total 6.9 6.4 - 8.2 g/dL 01/13/2024 7:38 AM [facility] Globulin 3.9 2.0 - 4.0 g/dL 01/13/2024 7:38 AM [facility] A/G Ratio 0.8(L) 1.0 - 2.4 01/13/2024 7:38 AM [facility] Blood VENOUS BLOOD SPECIMEN / Unknown Venipuncture / Unknown 01/13/2024 7:10 AM CDT 01/13/2024 7:15 AM CDT Nicholas Rios DO BKR LAB BLOOD ORDERA [facility] [address] [place] [address] from Last 3 Months or Most Recently Relevant to Health Maintenance Advance Directives * Selective Treatment/DNR (Latest Code Status on File) Date Activated Date Inactivated Comments 01/09/2024 3:54 PM 01/11/2024 1:38 PM Question Answer Comments CPR in case of Cardiac Arrest? No Intubation ( Pre-Arrest ) ? Yes Antiarrhythmics (Pre-Arrest)? Yes Cardioversion (Pre-Arrest)? Yes Vasopressor (Pre-Arrest)? Yes Care Teams Male Impersonator Relationship Specialty Start Date End Date Marleni Jung [address] [place] [phone] PCP - General Family Practice 01/09/24
--- OUTSIDE RECORDS SUMMARY | 2024-07-17 03:07 | XMS_ITS ---
Author Organization [facility] Address [address] [facility] [address] [address] Care Team Providers Care Embossing Tool Setter Name Role Phone Marleni Jung MD Primary Care Provider Terrie vailable Lucie Amaya Unavailable [phone] REASON FOR VISIT Refill Buproprion Social History Sex Assigned At : Social History Observation Description Sex Assigned At Female Encounters Encounter Location Date Provider Diagnosis [facility] [place] [address] [facility] [address] [place] [address] 07/04/2024 Lucie Amaya Plan Of Treatment Next Appt Details Provider Name:Lucie Amaya , 07/30/2024 09:45:00 AM, [address], [facility] [address], [place], [address], Progress Notes * GEOFFREY OSMANOB: [birth year] (54 yo F)Acc No.[id number]:07/04/2024 Patient:?JEIMY OSMANIE :1970???Age:54 Y???Sex:Female Address:[address], [place], [address] * true * Date:? Generated for Johni felix/Elsie/eTransmitting on:?07/17/2024 03:07 AM REFRIGERATED CARGO CLERK
--- OUTSIDE RECORDS SUMMARY | 2024-07-17 03:07 | XMS_ITS | Patient Health Summary ---
Author Organization [facility] Address [address] [facility] [place] [address] Care Team Providers Care Elect Equip Maint Eng Name Role Phone Marleni Jung MD Primary Care Provider + Note from [facility],non-owned Affiliates and Associated Physician Practices is amultiple site organization consisting of ambulatory clinics and hospital sitesin [place], [place], [place] and [place]. This disclosure is being madepursuant to the Care Everywhere program and may not contain all information available regarding this patient. Last updated 18.[facility] Social History Tobacco Use Types Packs/Day Years Used Date Smoking Tobacco: Never Assessed Sex and Gender Information Value Date Recorded Sex Assigned at Not on file Gender Identity Not on file Sexual Orientation Not on file Procedures * RUBEOLA ANTIBODY IGG(Performed 03/29/2012) * RUBELLA ANTIBODY IGG(Performed 03/29/2012) * MUMPS ANTIBODY IGG(Performed 03/29/2012) * HEPATITIS B SURFACE ANTIBODY(Performed 03/29/2012) Results * (ABNORMAL) RUBEOLA ANTIBODY IGG (03/29/2012 11:38 AM CDT) Measles (Rubeola) Antibody IgG 5.8(H) SEE BELOW IV [facility] Comment: <0.9 ? Negative ?presumed non-immune >=0.9 to <1.1 Equivocal >=1.1 ?Positive ?presumed immune Interpretation Rubeola [facility] Comment: ? When equivocal results are obtained, another specimen should be ? collected 10 to 14 days later, and tested in parallel with the ? initial specimen. ??If the second specimen is also equivocal, the ? patient is negative for primary or recent infection, and equivocal ? for antibody status. ??If the second sample is positive, the patient ? can be considered to have a primary infection. BLOOD SPECIMEN / Unknown 03/29/2012 11:38 AM CDT 03/29/2012 6:44 PM CDT Provider Unknown LAB - CHEMISTRY ORDE DAYO Performing Organization Address [facility] de Phone Number [facility] [address] [place] [id number] * (ABNORMAL) MUMPS ANTIBODY IGG (03/29/2012 11:38 AM CDT) Mumps Virus Antibody IgG 7.2(H) SEE BELOW IV [facility] Comment: <0.9 ? Negative ?presumed non-immune >=0.9 to <1.1 Equivocal >=1.1 ?Positive ?presumed immune BLOOD SPECIMEN / Unknown 03/29/2012 11:38 AM CDT 03/29/2012 6:44 PM CDT Provider Unknown LAB - CHEMISTRY ORDE DAYO Performing Organization Address [facility] de Phone Number [facility] [address] [place] [address] * RUBELLA ANTIBODY IGG (03/29/2012 11:38 AM CDT) Rubella Antibody 34.3 SEE BELOW IU/ml [facility] Comment: =>10.0 Positive-Immune 5.0-9.9 Suggest Repeat Testing <5.0 Negative-Nonimmune BLOOD SPECIMEN / Unknown 03/29/2012 11:38 AM CDT 03/29/2012 6:44 PM CDT Provider Unknown LAB - SEROLOGY ORDER JASWANT Performing Organization Address [facility] de Phone Number [facility] [address] [place] [address] * HEPATITIS B SURFACE ANTIBODY (03/29/2012 11:38 AM CDT) Hepatitis B Virus Surface Antibody Nonreactive Nonreactive [facility] BLOOD SPECIMEN / Unknown 03/29/2012 11:38 AM CDT 03/29/2012 6:44 PM CDT Provider Unknown LAB - CHEMISTRY TIFFANIE OSHEA Performing Organization Address City/State/[facility] Co de Phone Number [facility] [address] [place] [address] Care Teams Elect Equip Maint Eng Relationship Specialty Start Date End Date Marleni Jung MD [address] [place] [address] PCP - General Family Medicine 03/03/24
--- OUTSIDE RECORDS SUMMARY | 2024-07-17 03:07 | XMS_ITS | CONTINUITY OF CARE DOCUMENT ---
Author Name leylamarie nicolekaci Address Unknown Organization [facility] Address [address] [place] [address] Phone [phone] Care Team Providers Care Furniture Finisher Helper Name Role Phone Amari PAZ, Lalit Unavailable [phone] CHRISTIAN BAILEY MD Unavailable [phone] CHRISTIAN BAILEY MD Unavailable PROBLEMS Condition Status Date Provider Notes Venous hypertension - unspecified active Levin steph Fitzpatrick MD Kidney Disease active Lalitmakayla Fitzpatrick MD Hyperlipidemia active Lalit Fitzpatrick MD Diabetes, Type 2 active Lalit Fitzpatrick MD ENCOUNTERS Date Type Provider Location Encounter Diag nosis - In-person encounter Office Visit Lalit Fitzpatrick MD [facility] Office Diabetes, Type 2HyperlipidemiaKidney DiseaseVenous hypertension - unspecified VITAL SIGNS Date Observation Value Provider Body Mass Index (Ratio) 35.29 kg/m2 Allie Fitzpatrick MD blood pressure, diastolic 98 mm[Hg] Ness Lorenzana blood pressure, systolic 152 mm[Hg] Mando Lorenzana oxygen saturation, oximetry 97 % Taty Lorenzana pulse rate 81 /min Taty velazquez weight E&M 239 [lb_av] Taty velazquez height E&M 69 [in_i] Taty velazquez respiratory rate E&M 16 /min Ana Lorenzana blood pressure, cuff size large Ness emelia Lorenzana ALLERGIES Allergy Name Onset Date Reaction Criticality Status SULFA High Criticality active HISTORY OF MEDICATION USE Medication Status Instructions Dates Provider Indications Com ments bupropion HCl 200 mg tablet sustained-releas e 12 hr active Taty Lorenzana furosemide 40 mg tablet active Taty Lorenzana metformin 500 mg tablet extended release 24 hr active Taty Lorenzana hydroxyzine HCl 10 mg tablet active Taty Lorenzana montelukast 10 mg tablet active Taty Lorenzana lamotrigine 200 mg tablet active Taty Lorenzana Ozempic 0.25 mg or 0.5 mg(2 mg/1.5 mL) pen injector completed INJECT 0.25 MG UNDER THE SKIN WEEKLY FOR 4 WEEKS AND THEN 0.5 MG WEEKLY - 3 Taty Lorenzana Ozempic 1 mg/dose (4 mg/3 mL) pen injector completed INJECT 1 MG UNDER THE SKIN EVERY WEEK - 3 Taty Lorenzana loxapine succinate 10 mg capsule completed - 3 Taty Lorenzana cefdinir 300 mg capsule completed TAKE 1 CAPSULE BY MOUTH TWICE DAILY FOR 7 DAYS - 3 Taty Lorenzana hydroxyzine HCl 50 mg tablet completed - 3 Taty Lorenzana loxapine succinate 25 mg capsule completed - 3 Taty Lorenzana SOCIAL HISTORY Date Observation Value Provider social history E&M Patient has n ever smoked. A lcohol Use - no Smoking History: Jonna gandara has never smoked. Lalit Fitzpatrick MD smoking status Never smoker Taty Coleman INSURANCE PROVIDERS Payer name Policy type / Coverage type [place] [employer] [place] [phone] ADVANCE DIRECTIVES Name Date DISCUSSED - NO DECISION MADE TREATMENT PLAN Date Name Performer [id number] P nichol comes in for evaluation of venous hypertension and varicose veins. She has had them since her teen age years and getting worse. Has discoloraiton, pain and denies wounds or ulcers. These are located behind knee, posterior thigh and calf. Hurts worse as the day goes by. More pain with standing for more than an hour and has throbbing and stinging pains. Has tried elastic stockings for last two years and help partially. Has visible varicosities. No hx of dvt. will check venous doppler and f/u Amari PAZ [id number],C, H er updated medication list for this problem includes: Metformin 500 Mg Tablet Extended Release 24 Hr (Metformin) Ozempic 0.25 Mg Or 0.5 Mg(2 Mg/1.5 Ml) Pen Injector (Semaglutide) ..... Inject 0.25 mg under the skin weekly for 4 weeks and then 0.5 mg weekly Ozempic 1 Mg/dose (4 Mg/3 Ml) Pen Injector (Semaglutide) ..... Inject 1 mg under the skin every week Amari PAZ [id number],C,wc at home Levin steph Fitzpatrick MD [id number],C,a pkd f ather on Amari PAZ Cardiology:Patient c omes in for evaluation of venous hypertension and varicose veins. She has had them since her teen age years and getting worse. Has discoloraiton, pain and denies wounds or ulcers. These are located behind knee, posterior thigh and calf. Hurts worse as the day goes by. More pain with standing for more than an hour and has throbbing and stinging pains. Has tried elastic stockings for last two years and help partially. Has visible varicosities. No hx of dvt. will check venous doppler and f/u Amari PAZ Cardiology: H er updated medication list for this problem includes: Metformin 500 Mg Tablet Extended Release 24 Hr (Metformin) Ozempic 0.25 Mg Or 0.5 Mg(2 Mg/1.5 Ml) Pen Injector (Semaglutide) ..... Inject 0.25 mg under the skin weekly for 4 weeks and then 0.5 mg weekly Ozempic 1 Mg/dose (4 Mg/3 Ml) Pen Injector (Semaglutide) ..... Inject 1 mg under the skin every week Amari PAZ Cardiology:wc at home Renzo roberts MD Cardiology:apkd f ather on Amari PAZ HISTORY OF PROCEDURES Procedure Date Procedure Name Provider Procedure Notes S tatus EKG Amari PAZ completed
--- OUTSIDE RECORDS SUMMARY | 2024-07-17 03:07 | XMS_ITS | Encounter Summary ---
Author Organization [facility] Address [address] [place] [address] Care Team Providers Care Blade Balancer Name Role Phone Stacie Jungia Primary Care Provider [phone] Reason for Visit * Reason Comments Shoulder Pain Nausea Encounter Details Date Type Department Care Team ([facility] st Contact Info) Description 01/13/2024 6:42 AM CDT - 01/13/2024 10:06 AM CDT Emergency [facility] Emergency Services [address], [place] [id number] Aaron Wolfe, [address] [place] [address] Catalina Montero, Adelaide Courtney RN Referred abdominal pain (Primary Dx); Abdominal pain, right upper quadrant Discharge Disposition: Home or Self Care Social History Tobacco Use Types Packs/Day Years Used Date Smoking Tobacco: Never Passive Smoke Exposure: Past Smokeless Tobacco: Never Alcohol Use Standard Drinks/Week Comments Yes 0 (1 standard drink = 0.6 oz pur e alcohol) Utilities Answer Date Recorded In the past 12 months has e electric, gas, oil, or water company threatened to shut off services in your home? No 01/09/2024 PHQ-2 Answer Date Recorded Initial depression screening score: 0 01/09/2024 Social Connections Answer Date Recorded How often do you see or talk to people that you care about and feel close to? (For example: talking to friends on the phone, visiting friends or family, going to yazidi or club meetings) 5 or more times [...] file Not on file Not on file documented as of this encounter Last Filed Vital Signs Vital Sign Reading [...] Mass Index 37.67 01/13/2024 6:49 AM CDT documented in this encounter Functional Status Functional Status Response Date of Assess ment Do you have serious difficul ty walking or climbing stairs? No 01/09/2024 Do you have difficulty dressing or bathing? No 01/09/2024 Because of a physical, menta l, or emotional condition, do you have difficulty doing errands alone? No 01/09/2024 Cognitive Status Response Date of Assessm ent Because of a physical, menta l, or emotional condition, do you have serious difficulty concentrating, remembering or making decisions? No 01/09/2024 documented as of this encounter Discharge Instructions * Attachments The following attachments cannot be sent through Care Everywhere. * Abdominal Pain, Adult (Macanese) documented in this encounter Medications at Time of Discharge Medication Sig Dispensed Refills Start Date End Date oxyCODONE-acetaminoph en (Percocet) 5-325 MG per tabletIndications:Ref erred abdominal pain Take 1-2 tablets by mouth every 6 hours as needed for Pain (Not to exceed 4000 mg acetaminophen per day). 13 tablet 01/13/2024 acetaminophen (TYLENOL) 500 MG tablet Take 2 tablets by mouth every 6 hours as needed for Pain. 01/11/2024 ketorolac (TORADOL) 10 MG tablet Take 1 tablet by mouth every 6 hours as needed for Pain. 20 tablet 01/11/2024 traMADol (ULTRAM) 50 MG tabletIndications:Abd ominal pain, right upper quadrant,Hepatic cyst Take 1 tablet by mouth every 6 hours as needed for Pain. 10 tablet 01/11/2024 buPROPion (WELLBUTRIN SR) 200 MG 12 hr tablet Take 200 mg by mouth every morning. 12/19/2023 furosemide (LASIX) 40 MG tablet Take 40 mg by mouth every morning. 10/31/2023 hydrOXYzine (ATARAX) 10 MG tablet Take 10 mg by mouth 3 times daily as needed. 12/20/2023 hydrOXYzine (ATARAX) 50 MG tablet Take 50 mg by mouth at bedtime. 12/20/2023 lamoTRIgine (LaMICtal) 25 MG tablet Take 50 mg by mouth in the morning and 50 mg in the evening. 12/18/2023 metFORMIN (GLUCOPHAGE-XR) 500 MG 24 hr tablet Take 500 mg by mouth daily. 01/08/2024 montelukast (SINGULAIR) 10 MG tablet Take 10 mg by mouth daily. 10/30/2023 QUEtiapine (SEROquel XR) 300 MG 24 hr tablet Take 300 mg by mouth at bedtime. 12/22/2023 documented as of this encounter Ordered Prescriptions Prescription Sig Dispensed Refills Start Date End Da te oxyCODONE-acetaminophe n (Percocet) 5-325 MG per tabletIndications:Refe rred abdominal pain Take 1-2 tablets by mouth every 6 hours as needed for Pain (Not to exceed 4000 mg acetaminophen per day). 13 tablet 01/13/2024 documented in this encounter Discharge Disposition Disposition Code Departure Means Destination Comment s Home or Self Care [facility] documented in this encounter ED Notes * Aaron Wolfe, - 01/13/2024 6:51 AM CDT Patient: Vangie Yuen Age: [age] year old Sex: female Encounter Date: 01/13/2024 [place] [facility] ENCOUNTER [facility] EM[facility] [address] [place] [id number] History Chief Complaint Patient presents with Shoulder Pain Nausea HPI Vangie Yuen is a 53 year old female who presents to the emergency department for evaluation of ongoing right-sided abdominal pain, now with 2 days of right shoulder pain keeping her up from sleep. Has pain with inspiration which is new. No cough, no congestion. Recently hospitalized for right sided abdominal pain with large liver cyst that were drained. ALLERGIES: Allergen Reactions Ancef [Cefazolin] Cough Doxycycline Cough Hydrocodone PRURITUS Sulfa Antibiotics RASH Current Facility-Administered Medications Medication sodium chloride 0.9 % injector flush 100 mL oxyCODONE-acetaminophen (PERCOCET) 5-325 MG tablet 1 tablet Current Outpatient Medications Medication Sig oxyCODONE-acetaminophen (Percocet) 5-325 MG per tablet Take 1-2 tablets by mouth every 6 hours as needed for Pain (Not to exceed 4000 mg acetaminophen per day). acetaminophen (TYLENOL) 500 MG tablet Take 2 tablets by mouth every 6 hours as needed for Pain. ketorolac (TORADOL) 10 MG tablet Take 1 tablet by mouth every 6 hours as needed for Pain. traMADol (ULTRAM) 50 MG tablet Take 1 tablet by mouth every 6 hours as needed for Pain. buPROPion (WELLBUTRIN SR) 200 MG 12 hr tablet Take 200 mg by mouth every morning. furosemide (LASIX) 40 MG tablet Take 40 mg by mouth every morning. hydrOXYzine (ATARAX) 10 MG tablet Take 10 mg by mouth 3 times daily as needed. hydrOXYzine (ATARAX) 50 MG tablet Take 50 mg by mouth at bedtime. lamoTRIgine (LaMICtal) 25 MG tablet Take 50 mg by mouth in the morning and 50 mg in the evening. metFORMIN (GLUCOPHAGE-XR) 500 MG 24 hr tablet Take 500 mg by mouth daily. montelukast (SINGULAIR) 10 MG tablet Take 10 mg by mouth daily. QUEtiapine (SEROquel XR) 300 MG 24 hr tablet Take 300 mg by mouth at bedtime. Current Discharge Medication List New Prescriptions Details oxyCODONE-acetaminophen (Percocet) 5-325 MG per tablet Take 1-2 tablets by mouth every 6 hours as needed for Pain (Not to exceed 4000 mg acetaminophen per day). Qty: 13 tablet, Refills: 0 Past Medical History: Diagnosis Date Diabetes mellitus (CMD) Past Surgical History: Procedure Laterality Date section, low transverse Cholecystectomy History reviewed. No pertinent family history. Social History Tobacco Use Smoking status: Never Passive exposure: Past Smokeless tobacco: Never Vaping Use Vaping status: never used Substance Use Topics Alcohol use: Yes Drug use: Never Patient's allergies, medications, past medical, surgical, family, and social history have been reviewed at length by myself, Aaron Wolfe DO. Review of Systems Constitutional: Negative for chills, fatigue and fever. HENT: Negative for congestion, rhinorrhea, sore throat and trouble swallowing. Respiratory: Negative for cough and shortness of breath. Cardiovascular: Positive for chest pain. Gastrointestinal: Positive for abdominal pain. Negative for constipation, diarrhea, nausea and vomiting. Genitourinary: Negative for difficulty urinating, dysuria, flank pain, hematuria, menstrual problem, pelvic pain, urgency, vaginal bleeding and vaginal discharge. Musculoskeletal: Negative for arthralgias, back pain and joint swelling. Right shoulder pain Skin: Negative for color change and rash. Neurological: Negative for dizziness, weakness and headaches. Hematological: Negative for adenopathy. Does not bruise/bleed easily. Psychiatric/Behavioral: Negative for confusion. Physical Exam ED Triage Vitals [01/13/24 0649] ED Triage Vitals Group Temp 97.9 ??F (36.6 ??C) Heart Rate 87 Resp 20 BP (!) 176/102 SpO2 98 % EtCO2 mmHg Height 5' 9 (1.753 m) Weight 255 lb 1.2 oz (115.7 kg) Weight Scale Used Scale in bed BMI (Calculated) 37.67 IBW/kg (Calculated) 66.2 Physical Exam Vitals and nursing note reviewed. Constitutional: Appearance: She is well-developed. HENT: Head: Normocephalic and atraumatic. Eyes: Pupils: Pupils are equal, round, and reactive to light. Neck: Thyroid: No thyromegaly. Trachea: No tracheal deviation. Cardiovascular: Rate and Rhythm: Normal rate and regular rhythm. Heart sounds: Normal heart sounds. Pulmonary: Effort: Pulmonary effort is normal. No respiratory distress. Breath sounds: Normal breath sounds. No wheezing or rales. Chest: Chest wall: No tenderness. Abdominal: General: Bowel sounds are normal. There is no distension. Palpations: Abdomen is soft. There is no mass. Tenderness: There is abdominal tenderness (Right upper quadrant). There is no guarding or rebound. Musculoskeletal: General: Normal range of motion. Cervical back: Normal range of motion and neck supple. Comments: Tenderness to the medial right scapula Skin: General: Skin is warm and dry. Findings: No rash. Neurological: Mental Status: She is alert and oriented to person, place, and time. ED Course Procedures Lab Results Results for orders placed or performed during the hospital encounter of 01/13/24 C Reactive Protein Result Value C-Reactive Protein 89.0 (H) Comprehensive Metabolic Panel Result Value Fasting Status Sodium 138 Potassium 3.6 Chloride 104 Carbon Dioxide 30 Anion Gap 8 Glucose 143 (H) BUN 20 Creatinine 1.16 (H) Glomerular Filtration Rate 56 (L) Comment: eGFR 30-59 mL/min/1.73m2 = Moderate decrease in kidney function. Stage 3 CKD (chronic kidney disease) or moderate kidney disease. Estimated GFR calculated using the CKD-EPI-R (2020) equationthat does not include race in the creatinine calculation. BUN/Cr 17 Calcium 8.9 Bilirubin, Total 0.7 GOT/AST 16 GPT/ALT 18 Alkaline Phosphatase 119 (H) Albumin 3.0 (L) Protein, Total 6.9 Globulin 3.9 A/G Ratio 0.8 (L) Urinalysis & Reflex Microscopy With Culture If Indicated Result Value COLOR, URINALYSIS Straw APPEARANCE, URINALYSIS Cloudy GLUCOSE, URINALYSIS Negative BILIRUBIN, URINALYSIS Negative KETONES, URINALYSIS Negative SPECIFIC GRAVITY, URINALYSIS 1.024 Comment: Measured by refractometry OCCULT BLOOD, URINALYSIS Negative PH, URINALYSIS 6.0 PROTEIN, URINALYSIS Negative UROBILINOGEN, URINALYSIS 0.2 NITRITE, URINALYSIS Negative LEUKOCYTE ESTERASE, URINALYSIS Small (A) SQUAMOUS EPITHELIAL, URINALYSIS 11 to 25 (A) ERYTHROCYTES, URINALYSIS 1 to 2 LEUKOCYTES, URINALYSIS 6 to 10 (A) BACTERIA, URINALYSIS Few (A) HYALINE CASTS, URINALYSIS None Seen TRANSITIONAL EPITHELIALS 1 to 5 Prothrombin Time (INR/PT) Result Value Protime- PT 10.3 INR 1.0 Comment: INR Therapeutic Range: 2.0 to 3.0 (2.5 to 3.5 recommended for recurrent thrombotic episodes and mechanical prosthetic heart valves.) Partial Thromboplastin Time (PTT) Result Value PTT 30 Lactic Acid, Venous Result Value Lactate, Venous 1.5 Lipase Result Value Lipase 19 TROPONIN I, HIGH SENSITIVITY Result Value Troponin I, High Sensitivity <4 NT proBNP Result Value NT-proBNP 41 CBC with Automated Differential (performable only) Result Value WBC 7.3 RBC 4.04 HGB 11.4 (L) HCT 34.4 (L) MCV 85.1 MCH 28.2 MCHC 33.1 RDW-CV 14.6 RDW-SD 45.0 PLT 196 NRBC 0 Neutrophil, Percent 68 Lymphocytes, Percent 22 Foard, Percent 6 Eosinophils, Percent 3 Basophils, Percent 0 Immature Granulocytes 1 Absolute Neutrophils 4.9 Absolute Lymphocytes 1.6 Absolute Monocytes 0.4 Absolute Eosinophils 0.2 Absolute Basophils 0.0 Absolute Immature Granulocytes 0.1 Electrocardiogram 12-Lead Result Value Systolic Blood Pressure 176 Diastolic Blood Pressure 102 Ventricular Rate EKG/Min (BPM) 78 Atrial Rate (BPM) 78 TN-Interval (MSEC) 198 QRS-Interval (MSEC) 88 QT-Interval (MSEC) 382 QTc 435 P Marrero (Degrees) 41 R Marrero (Degrees) 14 T Marrero (Degrees) 57 REPORT TEXT Normal sinus rhythm Cannot rule out Anterior infarct , age undetermined Abnormal ECG No previous ECGs available Confirmed by AARON WOLFE DO ([id number]), primer expeditor and drier Poonam Allen ([id number]) on 01/13/2024 8:47:49 AM All laboratory results above were personally reviewed by myself, Aaron Wlofe DO. EKG Results EKG Interpretation EKG shows sinus rhythm rate of 78 with normal intervals, normal axis, no acute ST or T wave abnormalities consistent with ischemia or infarction. No previous EKGs available at the bedside for comparison. EKG tracing interpreted by myself, Aaron Wolfe DO. Radiology Results CT ABDOMEN PELVIS W CONTRAST Final Result by Jone Shelton MD (01/13 848) IMPRESSION: 1. There is no CTA evidence for pulmonary embolic disease. Likely subsegmental atelectasis both lungs as above with a small right pleural effusion. 2. Hepatic subcapsular hematoma appears smaller compared to 4 days earlier. There is hyperdense blood in the dependent pelvis, increased from the prior study. Electronically Signed by: Jone Shelton MD Signed on: 01/13/2024 8:48 AM Created on Workstation ID: [id number] Signed on Workstation ID: [id number] CTA CHEST PULMONARY EMBOLISM Final Result by Jone Shelton MD (01/13 848) IMPRESSION: 1. There is no CTA evidence for pulmonary embolic disease. Likely subsegmental atelectasis both lungs as above with a small right pleural effusion. 2. Hepatic subcapsular hematoma appears smaller compared to 4 days earlier. There is hyperdense blood in the dependent pelvis, increased from the prior study. Electronically Signed by: Jone Shelton MD Signed on: 01/13/2024 8:48 AM Created on Workstation ID: [id number] Signed on Workstation ID: [id number] Any images above were personally reviewed by myself, Aaron Wolfe DO, via direct independent visualization of the image(s) and/or with the corresponding radiologist. Medications sodium chloride 0.9 % injector flush 100 mL (100 mLs Injection Given 01/13/24 0808) oxyCODONE-acetaminophen (PERCOCET) 5-325 MG tablet 1 tablet (has no administration in time range) sodium chloride (NORMAL SALINE) 0.9 % bolus 1,000 mL (0 mLs Intravenous Completed 01/13/24 0757) HYDROmorphone (DILAUDID) injection 1 mg (1 mg Intravenous Given 01/13/24 0711) iohexol (OMNIPAQUE 350 INJECT) contrast solution 100 mL (100 mLs Intravenous Given 01/13/24 0808) HYDROmorphone (DILAUDID) injection 1 mg (1 mg Intravenous Given 01/13/24 0836) Medical Decision Making 53-year-old female with recently drained liver cyst, now with right sided shoulder pain and pleuritic discomfort. Concern for possible PE, referred pain from right upper quadrant considered. Plan forlabs, pain medication and CTA of the chest and CT abdomen pelvis with IV contrast. Re-evaluation: Labs and imaging reviewed, no PE, no new findings with the liver cyst, has some blood in the pelviswhich was expected post procedurally. Labs are stable. No anemia. Pain is referred from the right upper quadrant procedure and will likely persist. Plan for pain medication and patient is planning toreturn home tomorrow. Clinical Impression ED Diagnoses Diagnosis Comment Associated Orders Final diagnoses Referred abdominal pain -- OXYCODONE-ACETAMINOPHEN 5-325 MG PO TABS Abdominal pain, right upper quadrant -- -- Disposition Discharge 01/13/2024 9:45 AM Vangie Yuen discharge to home/self care. Current Discharge Medication List New Prescriptions Details oxyCODONE-acetaminophen (Percocet) 5-325 MG per tablet Take 1-2 tablets by mouth every 6 hours as needed for Pain (Not to exceed 4000 mg acetaminophen per day). Qty: 13 tablet, Refills: 0 Medications sodium chloride 0.9 % injector flush 100 mL (100 mLs Injection Given 01/13/24 0808) oxyCODONE-acetaminophen (PERCOCET) 5-325 MG tablet 1 tablet (has no administration in time range) sodium chloride (NORMAL SALINE) 0.9 % bolus 1,000 mL (0 mLs Intravenous Completed 01/13/24 0757) HYDROmorphone (DILAUDID) injection 1 mg (1 mg Intravenous Given 01/13/24 0711) iohexol (OMNIPAQUE 350 INJECT) contrast solution 100 mL (100 mLs Intravenous Given 01/13/24 0808) HYDROmorphone (DILAUDID) injection 1 mg (1 mg Intravenous Given 01/13/24 0836) Follow up: [facility] [address] [place] [id number] Patient was instructed to return to the emergency department immediately if symptoms worsen or any new unusual symptoms arise. New Prescriptions: Summary of your Discharge Medications Take these Medications Details oxyCODONE-acetaminophen 5-325 MG per tablet Commonly known as: Percocet Take 1-2 tablets by mouth every 6 hours as needed for Pain (Not to exceed 4000 mg acetaminophen perday). The patient understands that this is a provisional diagnosis. Provisional diagnosis can and do change. The diagnosis that you are discharged with today is based on the symptoms with which you presented today. If any new symptoms occur or worsen, you should seek immediate attention for re-evaluation. Aaron Wolfe DO 01/13/24 0948 * Catalina Montero RN - 01/13/2024 6:50 AM CDT Patient was advised and in agreement they do not meet Urgent Care criteria based on triage symptoms. * Catalina Montero RN - 01/13/2024 6:48 AM CDT Patient arrives with right shoulder pain. Was seen on 01/07 with right side pain, diagnosed with a liver cyst which was drained. Patient had right shoulder pain following procedure and was admitted for 2 nights. States there was a hematoma noted when they went to drain the cyst and she developed a new hematoma afterwards. Woke up at 0500 this am with increasing right shoulder pain unrelieved by Tramadol at home. documented in this encounter Plan of Treatment Not on file documented as of this encounter Procedures Procedure Name Priority Date/Time Associated Diagnosis Comments URINALYSIS & REFLEX MICROSCOPY WITH CULTURE IF INDICATED STAT 01/13/2024 8:24 AM CDT URINE, BACTERIAL CULTURE STAT 024 8:[address] ABDOMEN PELVIS W CONTRAST STAT 01/13/2024 8:08 AM CDT CTA CHEST PULMONARY EMBOLISM STAT 01/13/2024 8:07 AM CDT TROPONIN I, HIGH SENSITIVITY STAT 01/13/2024 7:10 AM CDT CBC WITH DIFFERENTIAL STAT 01/13/2024 7:10 AM CDT CBC WITH AUTOMATED DIFFERENTIAL (PERFORMABLE ONLY) STAT 01/13/2024 7:10 AM CDT PARTIAL THROMBOPLASTIN TIME STAT 01/13/2024 7:10 AM CDT PROTHROMBIN TIME (INR/PT) STAT 2023 7:10 AM CDT LIPASE STAT 01/13/2024 7:10 AM CDT COMPREHENSIVE METABOLIC PANEL STAT 01/13/2024 7:10 AM CDT LACTIC ACID, VENOUS STAT 01/13/2024 7 :10 AM CDT C REACTIVE PROTEIN STAT 01/13/2024 7: 10 AM CDT NT PROBNP STAT 01/13/2024 7:10 AM CDT ELECTROCARDIOGRAM 12-LEAD Routine 2023 7:07 AM CDT documented in this encounter Results * Urine, Bacterial Culture (01/13/2024 8:24 AM CDT) Urine, Bacterial Culture No Growth 01/14/2024 12:00 PM CDT [facility] Urine URINE SPECIMEN OBTAINED BY CLEAN CATCH PROCEDURE / Unknown 01/13/2024 8:24 AM CDT 01/13/2024 8:29 AM CDT Aaron SONG LAB MICRO-GEN OR DERABLES [facility] [address] * (ABNORMAL) Urinalysis & Reflex Microscopy With Culture If Indicated (01/13/2024 8:24 AM CDT) COLOR, URINALYSIS Straw 024 8:40 AM CDT [facility] APPEARANCE, URINALYSIS Cloudy 01/13/2024 8:40 AM CDT [facility] GLUCOSE, URINALYSIS Negative Negative mg/dL 01/13/2024 8:40 AM CDT [facility] BILIRUBIN, URINALYSIS Negative Negative 01/13/2024 8:40 AM CDT [facility] KETONES, URINALYSIS Negative Negative mg/dL 01/13/2024 8:40 AM CDT [facility] SPECIFIC GRAVITY, URINALYSIS 1.024 1.005 - 1.030 01/13/2024 8:40 AM T [facility] Comment:Measured by refracto metry OCCULT BLOOD, URINALYSIS Negative Negative 01/13/2024 8:40 AM CDT [facility] PH, URINALYSIS 6.0 5.0 - 7.0 01/13/2024 8:40 AM CDT [facility] PROTEIN, URINALYSIS Negative Negative mg/dL 01/13/2024 8:40 AM CDT [facility] UROBILINOGEN, URINALYSIS 0.2 0.2, 1.0 mg/dL 01/13/2024 8:40 AM T [facility] NITRITE, URINALYSIS Negative Negative 01/13/2024 8:40 AM CDT [facility] LEUKOCYTE ESTERASE, URINALYSIS Small(A) Negative 01/13/2024 8:40 AM CDT [facility] SQUAMOUS EPITHELIAL, URINALYSIS 11 to 25(A) None Seen, 1 to 5 /hpf 01/13/2024 8:40 AM CDT [facility] ERYTHROCYTES, URINALYSIS 1 to 2 None Seen, 1 to 2 /hpf 01/13/2024 8:40 AM CDT [facility] LEUKOCYTES, URINALYSIS 6 to 10(A) None Seen, 1 to 5 /hpf 01/13/2024 8:40 AM CDT [facility] BACTERIA, URINALYSIS Few(A) None Seen /hpf 01/13/2024 8:40 AM CDT [facility] HYALINE CASTS, URINALYSIS None Seen None Seen, 1 to 5 /lpf 01/13/2024 8:40 AM CDT [facility] TRANSITIONAL EPITHELIALS 1 to 5 1 to 5, None Seen /hpf 01/13/2024 8:40 AM CDT [facility] Urine URINE SPECIMEN OBTAINED BY CLEAN CATCH PROCEDURE / Unknown 01/13/2024 8:24 AM CDT 01/13/2024 8:29 AM CDT Aaron Wolfe DO BKR LAB URINE ORDERA BLES Performing Organization Address City/State/[facility] Co de Phone Number [facility] [address] [place] [address] * CT ABDOMEN PELVIS W CONTRAST (01/13/2024 8:08 AM CDT) Anatomical Region Laterality Modality Abdomen, Pelvis, Abdomen/Pelvis Computed Tomography 01/13/2024 8:25 AM CDT Impressions 01/13/2024 8:48 AM CDT IMPRESSION: 1. There is no CTA evidence for pulmonary embolic disease. ?? Likely subsegmental atelectasis both lungs as above with a small right pleural effusion. 2. Hepatic subcapsular hematoma appears smaller compared to 4 days earlier. There is hyperdense blood in the dependent pelvis, increased from the prior study. Electronically Signed by: Jone Shelton MD Signed on: 01/13/2024 8:48 AM Created on Workstation ID: [id number] Signed on Workstation ID: [id number] Narrative 01/13/2024 8:48 AM CDT EXAM: CTA CHEST PULMONARY EMBOLISM, CT ABDOMEN PELVIS W CONTRAST 01/13/2024 8:06 AM HISTORY: pleuritic chest pain, nausea, recent hepatic cyst aspiration COMPARISON: Abdomen pelvis CT 01/09/2024, chest CT 11/24/2008 TECHNIQUE: 100 mL of Omnipaque-350 were given intravenously. Pulmonary axial CTA imaging of the chest was performed. Portal venous phase postcontrast CT imaging of the abdomen and pelvis also performed. 2-D sagittal and coronal CT reformats were generated on a separate workstation as well as MIP angiogram reformats. Utilization of dose lowering techniques was performed to include automated exposure control, adjustment of the mA and/or kV according to patient size, and use of the iterative reconstruction technique. FINDINGS: The pulmonary arteries enhance normally with no CT evidence for pulmonary embolic disease. The thoracic aorta enhances normally as well. No mediastinal or hilar adenopathy is seen. There is a small layering right pleural effusion. There is a small right pleural effusion and adjacent likely passive atelectasis in the right lower lobe. Band of atelectasis in the right upper lobe as well. Minimal subsegmental atelectasis seen at the left lung base. Mixed density hepatic subcapsular hematoma again identified. Portion of the hematoma that abuts a large cyst of the right liver appears smaller on the current study. It has a maximum transverse depth of 3 cm currently compared to 5 cm on the prior study. This portion of the hematoma does deform the large right hepatic cyst. Elsewhere the subcapsular hematoma is now of mixed density suggesting no active bleeding. Hyperdense blood in the dependent pelvis is increased compared to the prior study. This is seen along the lower paracolic gutters as well. Numerous hepatic and renal cysts again noted. Procedure Note Jone Shelton MD - 01/13/2024 EXAM: CTA CHEST PULMONARY EMBOLISM, CT ABDOMEN PELVIS W CONTRAST01/13/2024 8:06 AM HISTORY: pleuritic chest pain, nausea, recent hepatic cyst aspiration COMPARISON: Abdomen pelvis CT 01/09/2024, chest CT 11/24/2008 TECHNIQUE: 100 mL of Omnipaque-350 were given intravenously. Pulmonary axial CTA imaging of the chest was performed. Portal venous phase postcontrast CT imaging of the abdomen and pelvis also performed. 2-D sagittal and coronal CT reformats were generated on a separateworkstation as well as MIP angiogram reformats. Utilization of dose lowering techniques was performed to includeautomated exposure control, adjustment of the mA and/or kV according to patientsize, and use of the iterative reconstruction technique. FINDINGS: The pulmonary arteries enhance normally with no CT evidencefor pulmonary embolic disease. The thoracic aorta enhances normally as well.No mediastinal or hilar adenopathy is seen. There is a small layering right pleural effusion. There is a small right pleural effusion and adjacent likely passive atelectasis in the right lower lobe. Band of atelectasisin the right upper lobe as well. Minimal subsegmental atelectasis seen atthe left lung base. Mixed density hepatic subcapsular hematoma again identified. Portion ofthe hematoma that abuts a large cyst of the right liver appears smaller onthe current study. It has a maximum transverse depth of 3 cm currentlycompared to 5 cm on the prior study. This portion of the hematoma does deform the large right hepatic cyst. Elsewhere the subcapsular hematoma is now of mixed density suggesting no active bleeding. Hyperdense blood in the dependent pelvis is increased compared to the prior study. This is seen along the lower paracolic gutters as well. Numerous hepatic and renal cysts again noted. IMPRESSION: 1. There is no CTA evidence for pulmonary embolic disease. Likely subsegmental atelectasis both lungs as above with a small right pleural effusion. 2. Hepatic subcapsular hematoma appears smaller compared to 4 daysearlier. There is hyperdense blood in the dependent pelvis, increased from theprior study. Electronically Signed by: Jone Shelton MD Signed on: 01/13/2024 8:48 AM Created on Workstation ID: [id number] Signed on Workstation ID: [id number] Aaron Wolfe DO IMG CT PROCEDURES * CTA CHEST PULMONARY EMBOLISM (01/13/2024 8:07 AM CDT) Anatomical Region Laterality Modality Chest Computed Tomogra phy 01/13/2024 8:25 AM CDT Impressions 01/13/2024 8:48 AM CDT IMPRESSION: 1. There is no CTA evidence for pulmonary embolic disease. ?? Likely subsegmental atelectasis both lungs as above with a small right pleural effusion. 2. Hepatic subcapsular hematoma appears smaller compared to 4 days earlier. There is hyperdense blood in the dependent pelvis, increased from the prior study. Electronically Signed by: Jone Shelton MD Signed on: 01/13/2024 8:48 AM Created on Workstation ID: [id number] Signed on Workstation ID: [id number] Narrative 01/13/2024 8:48 AM CDT EXAM: CTA CHEST PULMONARY EMBOLISM, CT ABDOMEN PELVIS W CONTRAST 01/13/2024 8:06 AM HISTORY: pleuritic chest pain, nausea, recent hepatic cyst aspiration COMPARISON: Abdomen pelvis CT 01/09/2024, chest CT 11/24/2008 TECHNIQUE: 100 mL of Omnipaque-350 were given intravenously. Pulmonary axial CTA imaging of the chest was performed. Portal venous phase postcontrast CT imaging of the abdomen and pelvis also performed. 2-D sagittal and coronal CT reformats were generated on a separate workstation as well as MIP angiogram reformats. Utilization of dose lowering techniques was performed to include automated exposure control, adjustment of the mA and/or kV according to patient size, and use of the iterative reconstruction technique. FINDINGS: The pulmonary arteries enhance normally with no CT evidence for pulmonary embolic disease. The thoracic aorta enhances normally as well. No mediastinal or hilar adenopathy is seen. There is a small layering right pleural effusion. There is a small right pleural effusion and adjacent likely passive atelectasis in the right lower lobe. Band of atelectasis in the right upper lobe as well. Minimal subsegmental atelectasis seen at the left lung base. Mixed density hepatic subcapsular hematoma again identified. Portion of the hematoma that abuts a large cyst of the right liver appears smaller on the current study. It has a maximum transverse depth of 3 cm currently compared to 5 cm on the prior study. This portion of the hematoma does deform the large right hepatic cyst. Elsewhere the subcapsular hematoma is now of mixed density suggesting no active bleeding. Hyperdense blood in the dependent pelvis is increased compared to the prior study. This is seen along the lower paracolic gutters as well. Numerous hepatic and renal cysts again noted. Procedure Note Jone Shelton MD - 01/13/2024 EXAM: CTA CHEST PULMONARY EMBOLISM, CT ABDOMEN PELVIS W CONTRAST01/13/2024 8:06 AM HISTORY: pleuritic chest pain, nausea, recent hepatic cyst aspiration COMPARISON: Abdomen pelvis CT 01/09/2024, chest CT 11/24/2008 TECHNIQUE: 100 mL of Omnipaque-350 were given intravenously. Pulmonary axial CTA imaging of the chest was performed. Portal venous phase postcontrast CT imaging of the abdomen and pelvis also performed. 2-D sagittal and coronal CT reformats were generated on a separateworkstation as well as MIP angiogram reformats. Utilization of dose lowering techniques was performed to includeautomated exposure control, adjustment of the mA and/or kV according to patientsize, and use of the iterative reconstruction technique. FINDINGS: The pulmonary arteries enhance normally with no CT evidencefor pulmonary embolic disease. The thoracic aorta enhances normally as well.No mediastinal or hilar adenopathy is seen. There is a small layering right pleural effusion. There is a small right pleural effusion and adjacent likely passive atelectasis in the right lower lobe. Band of atelectasisin the right upper lobe as well. Minimal subsegmental atelectasis seen atthe left lung base. Mixed density hepatic subcapsular hematoma again identified. Portion ofthe hematoma that abuts a large cyst of the right liver appears smaller onthe current study. It has a maximum transverse depth of 3 cm currentlycompared to 5 cm on the prior study. This portion of the hematoma does deform the large right hepatic cyst. Elsewhere the subcapsular hematoma is now of mixed density suggesting no active bleeding. Hyperdense blood in the dependent pelvis is increased compared to the prior study. This is seen along the lower paracolic gutters as well. Numerous hepatic and renal cysts again noted. IMPRESSION: 1. There is no CTA evidence for pulmonary embolic disease. Likely subsegmental atelectasis both lungs as above with a small right pleural effusion. 2. Hepatic subcapsular hematoma appears smaller compared to 4 daysearlier. There is hyperdense blood in the dependent pelvis, increased from theprior study. Electronically Signed by: Jone Shelton MD Signed on: 01/13/2024 8:48 AM Created on Workstation ID: [id number] Signed on Workstation ID: [id number] Aaron Wolfe DO IMG CT PROCEDURES * (ABNORMAL) CBC with Automated Differential (performable only) (01/13/2024 7:10 AM CDT) WBC 7.3 4.2 - 11.0 K/mcL 01/13/2024 7:21 AM CDT [facility] RBC 4.04 4.00 - 5.20 mil/mcL 01/13/2024 7:21 AM CDT [facility] HGB 11.4(L) 12.0 - 15.5 g/dL 01/13/2024 7:21 AM CDT [facility] HCT 34.4(L) 36.0 - 46.5 % 01/13/2024 7:21 AM T [facility] MCV 85.1 78.0 - 100.0 fl 01/13/2024 7:21 AM CDT [facility] MCH 28.2 26.0 - 34.0 pg 01/13/2024 7:21 AM CDT [facility] MCHC 33.1 32.0 - 36.5 g/dL 01/13/2024 7:21 AM T [facility] RDW-CV 14.6 11.0 - 15.0 % 01/13/2024 7:21 AM T [facility] RDW-SD 45.0 39.0 - 50.0 fL 01/13/2024 7:21 AM CDT [facility] PLT 196 140 - 450 K/mcL 01/13/2024 7:21 AM CDT [facility] NRBC 0 <=0 /100 WBC 01/13/2024 7:21 AM CDT [facility] Neutrophil, Percent 68 % 01/13/2024 7:21 AM CDT [facility] Lymphocytes, Percent 22 % 01/13/2024 7:21 AM CDT [facility] Foard, Percent 6 % 01/13/2024 7:21 AM CDT [facility] Eosinophils, Percent 3 % 01/13/2024 7:21 AM CDT [facility] Basophils, Percent 0 % 01/13/2024 7:21 AM CDT [facility] Immature Granulocytes 1 % 01/13/2024 7:21 AM CDT [facility] Absolute Neutrophils 4.9 1.8 - 7.7 K/[facility] 01/13/2024 7:21 AM CDT [facility] Absolute Lymphocytes 1.6 1.0 - 4.0 K/[facility] 01/13/2024 7:21 AM CDT [facility] Absolute Monocytes 0.4 0.3 - 0.9 K/[facility] 01/13/2024 7:21 AM CDT [facility] Absolute Eosinophils 0.2 0.0 - 0.5 K/[facility] 01/13/2024 7:21 AM CDT [facility] Absolute Basophils 0.0 0.0 - 0.3 K/[facility] 01/13/2024 7:21 AM CDT [facility] Absolute Immature Granulocytes 0.1 0.0 - 0.2 K/[facility] 01/13/2024 7:21 AM CDT [facility] Blood VENOUS BLOOD SPECIMEN / Unknown Venipuncture / Unknown 01/13/2024 7:10 AM CDT 01/13/2024 7:15 AM CDT Narrative [facility] - 01/13/2024 7:21 AM CDT This is an appended report. ??These results have been appended to a previously verified report. Aaron SONG LAB BLOOD ORDERA BLES Performing Organization Address City/[facility]/ZIP Co de Phone Number [address] [address] * NT proBNP (01/13/2024 7:10 AM CDT) NT-proBNP 41 <=125 pg/mL 01/13/2024 7:38 AM CDT [facility] Blood VENOUS BLOOD SPECIMEN / Unknown Venipuncture / Unknown 01/13/2024 7:10 AM CDT 01/13/2024 7:15 AM CDT Aaron JOHNSONR LAB BLOOD ORDERA BLES Performing Organization Address City/[facility]/ZIP Co de Phone Number [address] [place] [address] * TROPONIN I, HIGH SENSITIVITY (01/13/2024 7:10 AM CDT) Troponin I, High Sensitivity <4 <52 ng/L 01/13/2024 7:38 AM CDT [facility] Blood VENOUS BLOOD SPECIMEN / Unknown Venipuncture / Unknown 01/13/2024 7:10 AM CDT 01/13/2024 7:15 AM CDT Aaron Wolfe DO BKR LAB BLOOD ORDERA BLES Performing Organization Address City/[facility]/ZIP Co de Phone Number [address] [address] * Lipase (01/13/2024 7:10 AM CDT) Lipase 19 15 - 77 Units/L 01/13/2024 7:38 AM CDT [facility] Blood VENOUS BLOOD SPECIMEN / Unknown Venipuncture / Unknown 01/13/2024 7:10 AM CDT 01/13/2024 7:15 AM CDT Aaron Wolfe DO BKR LAB BLOOD ORDERA BLES Performing Organization Address [facility]/ZIP Co de Phone Number [address] [address] * Lactic Acid, Venous (01/13/2024 7:10 AM CDT) Lactate, Venous 1.5 0.0 - 2.0 mmol/L 01/13/2024 7:41 AM CDT [facility] Blood VENOUS BLOOD SPECIMEN / Unknown Venipuncture / Unknown 01/13/2024 7:10 AM CDT 01/13/2024 7:15 AM CDT Aaron Wolfe DO BKR LAB BLOOD ORDERA BLES Performing Organization Address City/[facility]/ZIP Co de Phone Number [address] [address] * Partial Thromboplastin Time (PTT) (01/13/2024 7:10 AM CDT) PTT 30 22 - 32 sec 01/13/2024 7:37 AM CDT [facility] Blood VENOUS BLOOD SPECIMEN / Unknown Venipuncture / Unknown 01/13/2024 7:10 AM CDT 01/13/2024 7:15 AM CDT Narrative [facility] - 01/13/2024 7:37 AM CDT PTT ??Therapeutic Range: ??45-65 seconds. Aaron Wolfe DO BKR LAB BLOOD ORDERA BLES Performing Organization Address City/[facility]/[place] [address] * Prothrombin Time (INR/PT) (01/13/2024 7:10 AM CDT) Protime- PT 10.3 9.7 - 11.8 sec 01/13/2024 7:37 AM CDT [facility] INR 1.0 01/13/2024 7:37 AM CDT [facility] Comment:INR Therapeutic Rang e: 2.0 to 3.0 (2.5 to 3.5 recommended for recurrent thrombotic episodes and mechanical prosthetic heart valves.) Blood VENOUS BLOOD SPECIMEN / Unknown Venipuncture / Unknown 01/13/2024 7:10 AM CDT 01/13/2024 7:15 AM CDT Aaron JOHNSONR LAB BLOOD ORDERA BLES Performing Organization Address City/[facility]/ZIP Co de Phone Number [address] [address] * (ABNORMAL) Comprehensive Metabolic Panel (01/13/2024 7:10 AM CDT) Fasting Status 01/13/2024 7:38 AM CDT [facility] Sodium 138 135 - 145 mmol/L 01/13/2024 7:38 AM CDT [facility] Potassium 3.6 3.4 - 5.1 mmol/L 01/13/2024 7:38 AM CDT [facility] Chloride 104 97 - 110 mmol/L 01/13/2024 7:38 AM [facility] Carbon Dioxide 30 21 - 32 mmol/L 01/13/2024 7:38 AM [facility] Anion Gap 8 7 - 19 mmol/L 01/13/2024 7:38 AM [facility] Glucose 143(H) 70 - 99 mg/dL 01/13/2024 7:38 AM [facility] BUN 20 6 - 20 mg/dL 01/13/2024 7:38 AM [facility] Creatinine 1.16(H) 0.51 - 0.95 mg/dL 01/13/2024 7:38 AM [facility] Glomerular Filtration Rate 56(L) >=60 01/13/2024 7:38 AM [facility] Comment:eGFR 30-59 mL/min/1. 73m2 = Moderate decrease in kidney function. Stage 3 CKD (chronic kidney disease) or moderate kidney disease. Estimated GFR calculated using the CKD-EPI-R (2020) equation that does not include race in the creatinine calculation. BUN/Cr 17 7 - 25 01/13/2024 7:38 AM [facility] Calcium 8.9 8.4 - 10.2 mg/dL 01/13/2024 7:38 AM [facility] Bilirubin, Total 0.7 0.2 - 1.0 mg/dL 01/13/2024 7:38 AM [facility] GOT/AST 16 <=37 Units/L 01/13/2024 7:38 AM [facility] GPT/ALT 18 <64 Units/L 01/13/2024 7:38 AM [facility] Alkaline Phosphatase 119(H) 45 - 117 Units/L 01/13/2024 7:38 AM [facility] Albumin 3.0(L) 3.6 - 5.1 g/dL 01/13/2024 7:38 AM [facility] Protein, Total 6.9 6.4 - 8.2 g/dL 01/13/2024 7:38 AM [facility] Globulin 3.9 2.0 - 4.0 g/dL 01/13/2024 7:38 AM CDT [facility] A/G Ratio 0.8(L) 1.0 - 2.4 01/13/2024 7:38 AM CDT [facility] Blood VENOUS BLOOD SPECIMEN / Unknown Venipuncture / Unknown 01/13/2024 7:10 AM CDT 01/13/2024 7:15 AM CDT Aaron Wolfe DO BKR LAB BLOOD ORDERA BLES Performing Organization Address City/[facility] [place] [address] * (ABNORMAL) C Reactive Protein (01/13/2024 7:10 AM CDT) Pathologist [facility] C-Reactive Protein 89.0(H) <10.0 mg/L 01/13/2024 7:38 AM CDT [facility] Blood VENOUS BLOOD SPECIMEN / Unknown Venipuncture / Unknown 01/13/2024 7:10 AM CDT 01/13/2024 7:15 AM CDT Aaron JOHNSONR LAB BLOOD ORDERA BLES Performing Organization Address [facility] [place] [address] * Electrocardiogram 12-Lead (01/13/2024 7:07 AM CDT) Systolic Blood Pressure 176 MUSE Diastolic Blood Pressure 102 MUSE Ventricular Rate EKG/Min (BPM) 78 MUSE Atrial Rate (BPM) 78 MUSE TN-Interval (MSEC) 198 MUSE QRS-Interval (MSEC) 88 MUSE QT-Interval (MSEC) 382 MUSE QTc 435 MUSE P Marrero (Degrees) 41 MUSE R Marrero (Degrees) 14 MUSE T Marrero (Degrees) 57 MUSE REPORT TEXT Normal sinus rhythm Cannot rule out Anterior infarct , age undetermined Abnormal ECG No previous ECGs available Confirmed by AARON WOLFE DO ([id number]), primer expeditor and drier Poonam Allen ([id number]) on 01/13/2024 8:47:49 AM MUSE 01/13/2024 7:07 AM CDT Aaron Wolfe DO ECG ORDERABLES MUSE documented in this encounter Visit Diagnoses Diagnosis Referred abdominal pain- Primary Abdominal pain, unspecified site Abdominal pain, right upper quadrant documented in this encounter Administered Medications Inactive Administered Medications - up to 1 most recent administrations Medication Order MAR Action Action Date Dose Rate Site HYDROmorphone (DILAUDID) injection 1 mg 1 mg ONCE, Intravenous, On Tue01/13/24 at 0658, For 1 dose, If an IV and an oral/TN medication are ordered PRN for the same pain severity, administer IV only if patient is NPO/if oral is not tolerated. Given 01/13/2024 7:11 AM CDT 1 mg HYDROmorphone (DILAUDID) injection 1 mg 1 mg ONCE, Intravenous, On Tue01/13/24 at 0832, For 1 dose, If an IV and an oral/TN medication are ordered PRN for the same pain severity, administer IV only if patient is NPO/if oral is not tolerated. Given 01/13/2024 8:36 AM CDT 1 mg iohexol (OMNIPAQUE 350 INJECT) contrast solution 100 mL 100 mL ONCE, Intravenous, On Tue01/13/24 at 0809, For 1 dose, * Note: Refrigerated product must be brought to room temp prior to administration * Given 01/13/2024 8:08 AM CDT 100 mLs oxyCODONE-acetaminophen (PERCOCET) 5-325 MG tablet 1 tablet 1 tablet ONCE, Oral, On Tue01/13/24 at 0948, For 1 dose, Maximum of 4,000 mg acetaminophen per 24 hours from ALL sources. Given 01/13/2024 9:59 AM CDT 1 tablet sodium chloride (NORMAL SALINE) 0.9 % bolus 1,000 mL 1,000 mL ONCE, Intravenous, Administer over 30 Minutes, On Tue01/13/24 at 0658, For 1 dose New Bag 01/13/2024 7:11 AM CDT 1,000 mLs 2000 mL/hr sodium chloride 0.9 % injector flush 100 mL 100 mL PRN, Injection, Flush, Starting on Tue01/13/24 at 0807 Given 01/13/2024 8:08 AM CDT 100 mLs documented in this encounter Active and Recently Administered Medications Times are shown in CDT. Scheduled Medication Order 01/11/2024 01/12/2024 01/13/2024 HYDROmorphone (DILAUDID) injection 1 mg (COMPLETED) 1 mg ONCE, Intravenous, On Tue01/13/24 at 0658, For 1 dose, If an IV and an oral/TN medication are ordered PRN for the same pain severity, administer IV only if patient is NPO/if oral is not tolerated. 0711 (Given - Provid er: Catalina Montero RN) HYDROmorphone (DILAUDID) injection 1 mg (COMPLETED) 1 mg ONCE, Intravenous, On Tue01/13/24 at 0832, For 1 dose, If an IV and an oral/TN medication are ordered PRN for the same pain severity, administer IV only if patient is NPO/if oral is not tolerated. 0836 (Given - Provid er: Adelaide Pickering RN) iohexol (OMNIPAQUE 350 INJECT) contrast solution 100 mL (COMPLETED) 100 mL ONCE, Intravenous, On Tue01/13/24 at 0809, For 1 dose, * Note: Refrigerated product must be brought to room temp prior to administration * 0808 (Given - Provid er: Tammie Rubin) oxyCODONE-acetaminophen (PERCOCET) 5-325 MG tablet 1 tablet (COMPLETED) 1 tablet ONCE, Oral, On Tue01/13/24 at 0948, For 1 dose, Maximum of 4,000 mg acetaminophen per 24 hours from ALL sources. 0959 (Given - Provid er: Adelaide Pickering RN) sodium chloride (NORMAL SALINE) 0.9 % bolus 1,000 mL (COMPLETED) 1,000 mL ONCE, Intravenous, Administer over 30 Minutes, On Tue01/13/24 at 0658, For 1 dose 0711 (New Bag - Prov ider: Catalina Montero RN)0757 (Completed - Provider: Catalina Montero RN) PRN Medication Order 01/11/2024 01/12/2024 01/13/2024 sodium chloride 0.9 % injector flush 100 mL 100 mL PRN, Injection, Flush, Starting on Tue01/13/24 at 0807 0808 (Given - Provid er: Tammie Rubin) documented in this encounter Orders Nursing Count Last Ordered Date First Orde red Date CARDIAC MONITORING 1 01/13/2024 VITAL SIGNS (ED) 1 01/13/2024 documented in this encounter Care Teams Blade Balancer Relationship Specialty Start Date End Date Marleni Jung [address] [place] [address] [phone] PCP - General Family Practice 01/09/24 documented as of this encounter
--- OUTSIDE RECORDS SUMMARY | 2024-07-17 03:07 | XMS_ITS | Encounter Summary ---
Author Organization [facility] Address [address] [place] [address] Care Team Providers Care Wrap Yarn Sorter Name Role Phone Marleni Jung Primary Care Provider [phone] Encounter Details Date Type Department Care Team (Latest Contact Info) Description 01/09/2024 Travel Social History Tobacco Use Types Packs/Day Years Used Date Smoking Tobacco: Never Passive Smoke Exposure: Past Smokeless Tobacco: Never Alcohol Use Standard Drinks/Week Comments Yes 0 (1 standard drink = 0.6 oz pur e alcohol) Utilities Answer Date Recorded In the past 12 months has [employer], gas, oil, or water company threatened to shut off services in your home? No 01/09/2024 PHQ-2 Answer Date Recorded Initial depression screening score: 0 01/09/2024 Social Connections Answer Date Recorded How often do you see or talk to people that you care about and feel close to? (For example: talking to friends on the phone, visiting friends or family, going to voodoo or club meetings) 5 or more times [...] on file documented as of this encounter Functional Status Functional Status Response [...] No 01/09/2024 documented as of this encounter Plan of Treatment Not on file documented as of this encounter Visit Diagnoses Not on filedocumented in this encounter Care Teams Wrap Yarn Sorter Relationship Specialty Start Date End Date Marleni Jung [address] [phone] PCP - General Family Practice 01/09/24 documented as of this encounter
--- OUTSIDE RECORDS SUMMARY | 2024-07-17 03:07 | XMS_ITS | Referral Summary ---
Author Organization [facility] Address [address] [facility] [place] [address] Care Team Providers Care Space Technologist Name Role Phone Marleni Jung MD Primary Care Provider + Source Comments [facility],non-owned Affiliates and Associated Physician Practices is amultiple site organization consisting of ambulatory clinics and hospital sitesin [place], [place], [place] and [place]. This disclosure is being madepursuant to the Care Everywhere program and may not contain all information available regarding this patient. Last updated 18.[facility] [employer] Social History Tobacco Use Types Packs/Day Years Used Date Smoking Tobacco: Never Assessed Sex and Gender Information Value Date Recorded Sex Assigned at Not on file Gender Identity Not on file Sexual Orientation Not on file Plan of Treatment Upcoming Encounters Date Type Department Care Team (Late st Contact Info) Description 09/27/2024 11:30 AM CDT Office Visit [facility] - [address] [facility] [place] [phone] Marcos Ferrer MD [address] [place] [address] Care Teams Space Technologist Relationship Specialty Start Date End Date Marleni Jung MD [address] [facility] [address] [place] [address] PCP - General Family Medicine 03/03/24
--- OUTSIDE RECORDS SUMMARY | 2024-07-17 03:07 | XMS_ITS | Encounter Summary ---
Author Organization [facility] Address [facility] [place] [address] Care Team Providers Care Surgery Teacher Name Role Phone Unavailable Primary Care Provider Unavailabl e Encounter Details Date Type Department Care Team (Latest Contact Info) Description 03/29/2012 6:43 PM CDT - 03/29/2012 11:59 PM CDT Hospital Encounter [facility] [address] [place] [address] Discharge Disposition: Home or Self Care Social History Tobacco Use Types Packs/Day Years Used Date Smoking Tobacco: Never Assessed Sex and Gender Information Value Date Recorded Sex Assigned at Not on file Gender Identity Not on file Sexual Orientation Not on file documented as of this encounter Plan of Treatment Upcoming Encounters Date Type Department Care Team (Late st Contact Info) Description 09/27/2024 11:30 AM CDT Office Visit [facility] - [address], [place] [id number] Marcos Ferrer MD [address] [place] [phone] documented as of this encounter Procedures Procedure Name Priority Date/Time Associated Diagnosis Comments RUBEOLA ANTIBODY IGG Today 03/29/2012 11:38 AM CDT MUMPS ANTIBODY IGG Today 03/29/2012 11 :38 AM CDT RUBELLA ANTIBODY IGG Today 03/29/2012 11:38 AM CDT HEPATITIS B SURFACE ANTIBODY Today 03/29/2012 11:38 AM CDT documented in this encounter Results * (ABNORMAL) RUBEOLA ANTIBODY IGG (03/29/2012 11:38 AM CDT) Measles (Rubeola) Antibody IgG 5.8(H) SEE BELOW IV [facility] Comment: <0.9 ? Negative ?presumed non-immune >=0.9 to <1.1 Equivocal >=1.1 ?Positive ?presumed immune Interpretation Rubeola [facility] Comment: ? When equivocal results are [...] - CHEMISTRY TIFFANIE OSHEA Performing Organization Address [facility] de Phone Number [facility] [address] [place] [address] * RUBELLA ANTIBODY IGG (03/29/2012 11:38 AM CDT) Pathologist [facility] Rubella Antibody 34.3 SEE BELOW IU/ml [facility] Comment: =>10.0 Positive-Immune 5.0-9.9 Suggest Repeat Testing <5.0 Negative-Nonimmune BLOOD SPECIMEN / Unknown 03/29/2012 11:38 AM CDT 03/29/2012 6:44 PM CDT Provider Unknown LAB - SEROLOGY ORDER JSAWANT Performing Organization Address [facility] de Phone Number [facility] [address] [place] [phone] * (ABNORMAL) MUMPS ANTIBODY IGG (03/29/2012 11:38 AM CDT) Mumps Virus Antibody IgG 7.2(H) SEE BELOW IV [facility] Comment: <0.9 ? Negative ?presumed non-immune >=0.9 to <1.1 Equivocal >=1.1 ?Positive ?presumed immune BLOOD SPECIMEN / Unknown 03/29/2012 11:38 AM CDT 03/29/2012 6:44 PM CDT Provider Unknown LAB - CHEMISTRY studentSN Performing Organization Address [facility] Co de Phone Number [facility] [address] [place] [address] * HEPATITIS B SURFACE ANTIBODY (03/29/2012 11:38 AM CDT) Pathologist [facility] Hepatitis B Virus Surface Antibody Nonreactive Nonreactive [facility] BLOOD SPECIMEN / Unknown 03/29/2012 11:38 AM CDT 03/29/2012 6:44 PM CDT Provider Unknown LAB - CHEMISTRY studentSN Performing Organization Address [facility] Co de Phone Number [facility] [address] [place] [address] documented in this encounter Visit Diagnoses Not on filedocumented in this encounter
--- OUTSIDE RECORDS SUMMARY | 2024-07-17 03:07 | XMS_ITS | Encounter Summary ---
Author Organization [facility] Address [address] [place] [id number] Care Team Providers Care Builder'S Labourer Name Role Phone HuseyinMarleni martinez Primary Care Provider [phone] Reason for Visit * Reason Comments Abdominal Pain * Authorization/Certification (Routine) Specialty Diagnoses / Procedures Referred By Contac t Referred To Contact Diagnoses Abdominal pain, right upper quadrant Hepatic cyst Polycystic kidney disease Referral ID Status Reason Start Date Expiration Date Visits Re quested Visits Authorized [id number] 1 1 Encounter Details Date Type Department Care Team (Late st Contact Info) Description 01/09/2024 8:03 AM CDT - 01/11/2024 11:33 AM CDT Emergency [facility] 3rd floor Observation Unit [address] [place], [place] [id number] Sabine Jerry DO [address] [place] [address] Tariq Khan MD [address] [place] [address] Darcei Saunders MD [address] [place], [place] [id number] Clarisse Campoverde, Lili Mauricio RN Hulce, June M, RN Dumoulin, Haylie H, [facility] Asia Berry, [facility] Kassandra Tabares RN Corey, [place] [facility] Lauren Hendricks, CYLINDER DIE MACHINE OPERATOR [address] [place] [address] Jada Clifford, HAND COLLATOR Treasure Frederick, GREEN JOBS TRAINER Yuli Tong, Rentia Franklin, HYDRATE THICKENER OPERATOR Rolf Newell, Evangelina Payton, Yossi Nagel, Darcie Harrison RN Discharge Disposition: Home or Self Care Social History Tobacco Use Types Packs/Day Years Used Date Smoking Tobacco: Never Passive Smoke Exposure: Past Smokeless Tobacco: Never Tobacco Cessation:Counseling Given: Not Answered Alcohol Use Standard Drinks/Week Comments Yes 0 (1 standard drink = 0.6 oz pur e alcohol) Utilities Answer Date Recorded In the past 12 months has e electric, gas, oil, or water Cardiovascular Simulation threatened to shut off services in your home? No 01/09/2024 PHQ-2 Answer Date Recorded Initial depression screening score: 0 01/09/2024 Social Connections Answer Date Recorded How often do you see or talk to people that you care about and feel close to? (For example: talking to friends on the phone, visiting friends or family, going to alevism or club meetings) 5 or more times [...] Date Record ed How often does anyone, inclu ding family and friends, physically hurt you??? Never [...] Sign Reading Time Taken Comments Blood Pressure 125/77 01/11/2024 7:31 AM CDT Pulse 94 01/11/2024 7:31 AM CDT Temperature 36.7 ??C (98.1 ??F) 01/11/2024 7:31 AM CD T Respiratory Rate 16 01/11/2024 7:31 AM CDT Oxygen Saturation 95% 01/11/2024 7:31 AM CDT Inhaled Oxygen Concentration - - Weight 113.3 kg (249 lb 12.5 oz) 01/09/2024 8:07 AM CDT Height 175.3 cm (5' 9 ) 01/09/2024 8:07 AM CDT Body Mass Index 36.89 01/09/2024 8:07 AM CDT documented in this encounter Functional [...] 01/09/2024 documented as of this encounter Discharge Summaries * Darcie Saunders MD - 01/11/2024 9:17 AM CDT Images from the original note were not included. Discharge Summary Patient ID: Vangie Yuen [id number] 53 year old 1970 Admit date: 01/09/2024 Discharge date: 01/11/2024 Admitting Physician: Darcie Saunders MD Discharge Physician: Darcie Saunders MD Primary Diagnoses: Principal Problem: Abdominal pain, right upper quadrant Resolved Problems: * No resolved hospital problems. * Secondary Diagnoses: Past Medical History: Diagnosis Date Diabetes mellitus (CMD) Hospital Course By Problem List (see H&P for details of admission): RUQ Pain; pain with deep breath CT A/P noted for Numerous hepatic cysts noted increased in size and number. Bilateral renal cysts also noted. S/P US guided aspiration of liver cyst Post-procedure imaging noted for Subcapsular hematoma of liver Pain management Close monitoring of hemoglobin - stable Renal cyst-incidentally seen. Pt reportedly has history of polycystic kidney disease Acute kidney injury vs chronic kidney disease stage IIIa Mild PCP to follow-up Type II diabetes mellitus Resume home oral therapies Consults Interventional Radiology Procedures performed US ASPIRATION ABSCESS HEMATOMA CYST Result Date: 01/09/2024 EXAM: US ASPIRATION ABSCESS HEMATOMA CYST CLINICAL HISTORY: LIVER CYST COMPARISON: CT abdomen and pelvis January 09, 2024 CONSENT: Informed consent was obtained from the patient and/or their appropriatedurable power of civil rights attorney. The risks, benefits, and alternatives were discussed in detail and understanding was voiced. The opportunity to ask questions was given and all questions were answered. At the conclusion of the discussion the patient and/or DPOA provided informed consent and elected to proceed. TECHNIQUE: The patient was brought to the ultrasound suite. Preliminary lockstitch waistband setter ultrasound images were acquired and a puncture site was chosen to target dominant liver cyst in the right liver. The patient was then prepped and draped in usual sterile fashion. 1% lidocaine was used to anesthetizethe skin. A Yueh needle was then advanced into the target lesion and 750 cc of clear yellow fluid was aspirated. The needle was removed and hemostasis was confirmed. There were no immediate complications. ANESTHESIA: 1% lidocaine was used for local anesthesia. IV fentanyl was given but no sedativeswere administered INTERVENTIONAL RADIOLOGIST: Castillo Itagaki, M.D. FINDINGS: Images show the needle in the target fluid collection. IMPRESSION: Successful ultrasound-guided aspiration. CT ABDOMEN PELVIS WO CONTRAST Result Date: 01/09/2024 EXAM: CT ABDOMEN PELVIS WO CONTRAST HISTORY: abdominal pain s/p liver cyst aspiration, severe pain COMPARISON: CT abdomen and pelvis with contrast January 09, 2024 at 0908 hours TECHNIQUE: Helical axialCT images of the abdomen and pelvis were obtained without IV contrast. Oral contrast was not administered. Coronal and sagittal reconstructions were performed. Individualize dose optimization technique was used for the performed procedure by employing the following: Automated exposure control, adjustment of the mA and/or kV according to patient's size, and/or the use of the iterative construction technique. FINDINGS: The partially visualized lung bases are clear. There is a new and thin crescentic high density fluid collection around the lateral aspect of the liver, presumably a subcapsular hematoma. The hematoma is thin, measuring about 1.0 cm in thickness, but wraps around the lateral aspect of the right hepatic lobe for a distance of approximately 18 cm. The dominant right hepatic lobe liver cyst which was accessed is reduced in size, but there is a lens lens shaped wall adherent hematoma on the lateral aspect of this which measures approximately 9 x 5.2 cm. Elsewhere in the liverinnumerable liver cysts are again identified and appear grossly unchanged. The patient is again status post cholecystectomy. The pancreas, spleen, and bilateral adrenal glands are unchanged. Numerouscysts are seen in the bilateral kidneys which appear unchanged with exception of contrast in the collecting system from the prior study. The bowel is normal in caliber and wall thickness. There is a trace amount of fluid tracking down the right paracolic gutter towards the cecum. In the pelvis the bladder and uterus appear normal. The osseous structures are stable in appearance. IMPRESSION: 1. Crescentic subcapsular hematoma measuring 1 x 14 cm and overlying the right hepatic lobe which was the site of aspiration. Within the dominant right hepatic lobe cyst, there is a linear shape mural hematoma near the site of prior needle entry which measures 9.1 x 5.2 cm. No clear evidence of active extravasation. CT ABDOMEN PELVIS W CONTRAST - IV contrast only Result Date: 01/09/2024 EXAM: CT ABDOMEN PELVIS W CONTRAST 01/09/2024 9:28 AM HISTORY: right sided abd pain COMPARISON: Remote chest CT 11/24/2008 TECHNIQUE: 100 mL of Omnipaque 350 were given intravenously. Portal venous phase CT imaging of the abdomen and pelvis was performed. Multiplanar 2-D CT reformats were generated on a separate workstation. Utilization of dose lowering techniques was performed to include automatedexposure control, adjustment of the mA and/or kV according to patient size, and use of the iterative reconstruction technique. FINDINGS: ABDOMEN: There are innumerable hepatic cysts in all segments of the liver. The cysts have increased in size and number compared to November 2008 the largest cyst is inthe right liver and measures up to 15 cm in diameter. There is one exophytic cystic mass off the inferior right liver. There is adjacent fat stranding. The cyst also has a thin visible peripheral wall. This measures up to 5 cm in diameter. Multiple bilateral renal cysts also present. No suspicious hepatic or renal mass lesions are identified. The spleen, pancreas, and adrenal glands appear negativ e. PELVIS: The appendix is not discretely visualized. No inflammatory changes are seen in the rightlower quadrant and pericecal regions. Pelvic imaging shows no significant mass or inflammatory change. No free fluid is seen.. IMPRESSION: Numerous hepatic cysts noted increased in size and number. Bilateral renal cysts also noted. There is a 5 cm exophytic cyst off the inferior right liver with mild surrounding inflammatorystranding and a visible peripheral wall, atypical for a simple cyst. This could indicate superimposed infected cyst or other pathology may explain the patient's pain. There Is also a dominant 15 cm simple cyst in the right liver. Discharge Exam Blood pressure 125/77, pulse 94, temperature 98.1 ??F (36.7 ??C), temperature source Oral, resp. rate 16, height 5' 9 (1.753 m), weight 113.3 kg (249 lb 12.5 oz), SpO2 95%. General: A&O x3, in NAD Lungs: Clear Heart: Regular Activity: Encouraged As Tolerated Diet: Regular Diet Code Status: Selective Treatment/DNR Pending issues to be followed up by PCP Monitor HGB - stable at 12.0 at time of discharge Monitor renal function Ongoing management of chronic medical conditions Discharge Medication List: What to Do with Your Medications START taking these medications today unless otherwise stated Details acetaminophen 500 MG tablet Commonly known as: TYLENOL Take 2 tablets by mouth every 6 hours as needed for Pain. Authorizing Provider: Lauren Hendricks NP ketorolac 10 MG tablet Commonly known as: TORADOL Take 1 tablet by mouth every 6 hours as needed for Pain. Authorizing Provider: Lauren Hendricks NP traMADol 50 MG tablet Commonly known as: ULTRAM Take 1 tablet by mouth every 6 hours as needed for Pain. Authorizing Provider: Lauren Hendricks NP CONTINUE taking these medications which have NOT CHANGED Details buPROPion 200 MG 12 hr tablet Commonly known as: WELLBUTRIN SR Take 200 mg by mouth every morning. furosemide 40 MG tablet Commonly known as: LASIX Take 40 mg by mouth every morning. * hydrOXYzine 10 MG tablet Commonly known as: ATARAX Take 10 mg by mouth 3 times daily as needed. * hydrOXYzine 50 MG tablet Commonly known as: ATARAX Take 50 mg by mouth at bedtime. lamoTRIgine 25 MG tablet Commonly known as: LaMICtal Take 50 mg by mouth in the morning and 50 mg in the evening. metFORMIN 500 MG 24 hr tablet Commonly known as: GLUCOPHAGE-XR Take 500 mg by mouth daily. montelukast 10 MG tablet Commonly known as: SINGULAIR Take 10 mg by mouth daily. QUEtiapine 300 MG 24 hr tablet Commonly known as: SEROquel XR Take 300 mg by mouth at bedtime. * This list has 2 medication(s) that are the same as other medications prescribed for you. Read thedirections carefully, and ask your doctor or other care provider to review them with you. Where to Get Your Medications These medications were sent to [id number] - [facility] [address] [facility] [address] [facility] [id number] ketorolac 10 MG tablet traMADol 50 MG tablet You are receiving a paper prescription for the following medications, you can take these to any pharmacy. You don't need a prescription for these medications acetaminophen 500 MG tablet Disposition: patient is being discharged to Home Follow-up with: Marleni Jung [address] [id number] Follow up in 1 week(s) Hospital F/U Time spent on discharge was 65 minutes Signed: Lauren Hendricks NP 01/11/2024 9:17 AM HOSPITALIST PROGRESS NOTE: Patient: Vangie Yuen Date: 01/11/2024 female, 53 year old Admit Date: 01/09/2024 Attending: Darcie Saunders MD Subjective: Vangie Yuen is a 53 year old female who is being seen in follow up for Abdominalpain, right upper quadrant. Pt reports that she has some continued abdominal pain but this is much improved compared to yesterday. She denies nausea, vomiting, diarrhea, or constipation ALLERGIES: Allergies as of 01/09/2024 - Reviewed 01/09/2024 Allergen Reaction Noted Ancef [cefazolin] Cough 01/09/2024 Doxycycline Cough 01/09/2024 Sulfa antibiotics RASH 01/09/2024 Past Medical History : Reviewed Past Social and Family History: Reviewed Medications : Reviewed Objective/Physical Exam Vital 24 Hour Range Last Value Temperature Temp Min: 97.5 ??F (36.4 ??C) Max: 98.2 ??F (36.8 ??C) 98.1 ??F (36.7 ??C) (01/11/24730) Pulse Pulse Min: 84 Max: 94 94 (01/11/24730) Respiratory Resp Min: 15 Max: 16 16 (01/11/24730) Non-Invasive Blood Pressure BP Min: 116/76 Max: 125/77 125/77 (01/11/24730) Pulse Oximetry SpO2 Min: 90 % Max: 95 % 95 % (01/11/24730) General: Well-developed and well nourished. Neurologic: Alert & oriented x 3. Cranial nerves II - XII grossly intact. No focal neurologicaldeficits. Psych: Well appearing female in no distress. Good eye contact. Speech is of a normal content and speed. Chest: Chest is symmetric. Breathing is non-labored. Lungs are clear to auscultation. No rales, rhonchi or wheezes. Breath sounds are equal bilaterally. Heart: Regular rate and rhythm. Normal S1 and S2 without S3 or S4. No murmur, rub or gallops. Abdomen: Soft, non-distended, tender, bowel sounds are active. Laboratory Results: Labs personally reviewed Diagnostics: Reviewed No results found for this or any previous visit. Medications/Infusions: Reviewed Assessment & Plan: Active Hospital Problems Diagnosis Abdominal pain, right upper quadrant Subcapsular hematoma of liver post aspiration of liver cyst-will continue pain management as outpatient Renal cyst-incidentally seen. Pt reportedly has history of polycystic kidney disease Acute kidney injury vs chronic kidney disease stage IIIa-No recent creatinine currently available. Pt lives in [facility] where she gets her care. Currently stable. Type II diabetes mellitus-continue home management Code status: Selective Treatment/DNR Hospital Day #: Hospital Day: 3 Signed: Darcie Saunders MD 01/11/2024 11:29 AM documented in this encounter Discharge Instructions * Discharge Instructions* Kassandra Tabares RN - 01/10/2024 10:38 AM CDT Images from the original note were not included. You have identified that you will look into completing a Power of Public Health Worker for Healthcare Document per [place] regulations at home. Please provide a copy of your Power of Public Health Worker for Healthcare Document to your physician at your scheduled follow up visit so a copy can be placed on file. A copy of your Power of Public Health Worker Document can also be mailed to the following address to be placed on file: [facility] Attn: Medical Records [address] [place] [address] Want to Say ???Thank You?? to a Nurse? The EDDIE Award?? was created in memory of Medhat Alejandro by his family to say thank you to nurses who provide an outstanding level of care. Submit a nomination using any method below. OR [email or web address] Or visit the Resource section on your [employer] denise * Attachments The following attachments cannot be sent through Care Everywhere. * Tramadol Oral Tablet (Kinyarwanda) * Ketorolac Oral Tablet (Kinyarwanda) documented in this encounter Medications at Time of Discharge Medication Sig Dispensed Refills Start Date End Date acetaminophen (TYLENOL) 500 MG tablet Take 2 tablets by mouth every 6 hours as needed for Pain. 01/11/2024 ketorolac (TORADOL) 10 MG tablet Take 1 tablet by mouth every 6 hours as needed for Pain. 20 tablet 01/11/2024 traMADol (ULTRAM) 50 MG tabletIndications:Abdomi nal pain, right upper quadrant,Hepatic cyst Take 1 [...] Dispensed Refills Start Date End Da te traMADol (ULTRAM) 50 MG tabletIndications:Abdomin al pain, right upper quadrant,Hepatic cyst Take 1 tablet by mouth every 6 hours as needed for Pain. 10 tablet 01/11/2024 ketorolac (TORADOL) 10 MG tablet Take 1 tablet by mouth every 6 hours as needed for Pain. 20 tablet 01/11/2024 acetaminophen (TYLENOL) 500 MG tablet Take 2 tablets by mouth every 6 hours as needed for Pain. 01/11/2024 documented in this encounter Discharge Disposition Disposition Code Departure Means Destination Comment s Home or Self Care (Not Going To Othe r HC Provider) documented in this encounter Progress Notes * Darcie Saunders MD - 01/10/2024 1:34 PM CDT [facility] MEDICINE PROGRESS NOTE Patient: Vangie Yuen Today's Date: 01/10/2024 Date: 1970 Admission Date: 01/09/2024 8:03 AM Inpatient LOS: 0 day(s) Room: [facility]/ Hospital Day: Hospital Day: 2 History and Subjective complaints Hospital Course Interval history and Overnight events: Patients interval history reviewed/EHR notes reviewed. Events from overnight reviewed, discussed with nursing. Patient seen and examined by me in follow-up. Family present at time of my initial visit. She is seen while resting - complaining of headache as well as nausea after taking oxycodone earlier. She is not tolerant of hydrocodone 2/2 itching. She notes pain to the abdomen, stable upon rest but any attempt at activity ie OOB, it is significantly higher. Reviewed Pertinent Histories: Medical History, Surgical History, Social History, Family History ROS: Pertinent systems negative except as above. Medications: personally reviewed today in this patient's active orders section of epic Physical Examination Vital Most Recent Value First Value Weight 113.3 kg (249 lb 12.5 oz) Weight: 113.3 kg (249 lb 12.5 oz) Height 5' 9 (175.3 cm) Height: 5' 9 (175.3 cm) BMI 36.89 N/A Visit Vitals BP 116/76 (BP Location: LUE - Left upper extremity, Patient Position: Semi-Blanco's) Pulse 84 Temp 98.1 ??F (36.7 ??C) (Oral) Resp 15 Ht 5' 9 (1.753 m) Wt 113.3 kg (249 lb 12.5 oz) SpO2 90% BMI 36.89 kg/m?? General: NAD, looks uncomfortable, eyes covered 2/2 headache/nausea Head: Normocephalic, atraumatic Cardiovascular: regular rate and rhythm Respiratory: clear to auscultation bilaterally and no accessory muscle use Abdomen/: Soft, Non-distended, + tender RUQ; + bowel sounds Extremities: no obvious rash, lesions or wounds Neurologic: Alert and Oriented x 3, no focal deficits appreciated; moving all ext independently with appropriate anti-gravity strength noted; muscle strength/sensation in upper/lower extremities grossly intact as best as can cooperate w/ exam Test Results Labs: The Laboratory values listed below have been reviewed and pertinent findings discussed in theAssessment and Plan. Recent Labs Lab 01/10/24 1202 01/10/24 0822 01/10/24 0417 01/09/24 1947 01/09/24 0846 WBC -- -- 6.8 -- 8.7 RBC -- -- 4.41 -- 4.98 HGB 12.3 12.7 12.5 < > 14.0 HCT -- -- 37.9 -- 41.5 PLT -- -- 183 -- 203 SEG -- -- 70 -- 73 < > = values in this interval not displayed. Recent Labs Lab 01/10/24 0417 01/09/24 1115 01/09/24 0859 01/09/24 0846 SODIUM 137 -- -- 139 POTASSIUM 4.4 -- -- 3.7 CHLORIDE 107 -- -- 108 CO2 26 -- -- 27 BUN 15 -- -- 18 CREATININE 0.97* -- 1.20* 1.11* GLUCOSE 127* -- -- 123* CALCIUM 8.5 -- -- 9.3 ALBUMIN 3.1* -- -- 3.4* AST 10 -- -- 13 GPT 16 -- -- 19 BILIRUBIN 1.0 -- -- 0.8 ALKPT 117 -- -- 140* INR -- 1.0 -- -- Radiology: Imaging studies have been reviewed and pertinent findings discussed in the Assessment and Plan. Results for orders placed or performed during the hospital encounter of 01/09/24 (from the past 48 hour(s)) CT ABDOMEN PELVIS W CONTRAST - IV contrast only Impression IMPRESSION: Numerous hepatic cysts noted increased in size and number. Bilateral renal cysts also noted. There is a 5 cm exophytic cyst off the inferior right liver with mild surrounding inflammatory stranding and a visible peripheral wall, atypical for a simple cyst. This could indicate superimposed infected cyst or other pathology may explain the patient's pain. There Is also a dominant 15 cm simple cyst in the right liver. Electronically Signed by: Jone Shelton MD Signed on: 01/09/2024 10:06 AM Created on Workstation ID: [id number] Signed on Workstation ID: [id number] US ASPIRATION ABSCESS HEMATOMA CYST Impression IMPRESSION: Successful ultrasound-guided aspiration. Electronically Signed by: Castillo Llanos MD Signed on: 01/09/2024 4:01 PM Created on Workstation ID: [id number] Signed on Workstation ID: [id number] CT ABDOMEN PELVIS WO CONTRAST Impression IMPRESSION: 1. Crescentic subcapsular hematoma measuring 1 x 14 cm and overlying the right hepatic lobe which was the site of aspiration. Within the dominant right hepatic lobe cyst, there is a linear shape mural hematoma near the site of prior needle entry which measures 9.1 x 5.2 cm. No clear evidence of active extravasation. Electronically Signed by: Castillo Llanos MD Signed on: 01/09/2024 3:38 PM Created on Workstation ID: [id number] Signed on Workstation ID: [id number] Assessment and Plan Reviewed with team members as appropriate RUQ Pain; pain with deep breath CT A/P noted for Numerous hepatic cysts noted increased in size and number. Bilateral renal cysts also noted. S/P US guided aspiration of liver cyst Post-procedure imaging noted for Subcapsular hematoma of liver Pain management Close monitoring of hemoglobin - stable Renal cyst-incidentally seen. Pt reportedly has history of polycystic kidney disease Acute kidney injury vs chronic kidney disease stage IIIa will monitor No recent creatinine currently available. Pt lives in [facility] where she gets her care. Type II diabetes mellitus Hold home oral therapies Low dose SSI ACHS while inpatient Consults: None FEN: Consistent Carb Moderate (45-75 Gm/Meal) Diet Therapy Orders: No orders of the defined types were placed in this encounter. DVT Prophylaxis - SCD's/NANCY's/Ambulatory Resume pharmacologic PPX when safe to do so Code Status: Selective Treatment/DNR Discharge Plan The patients treatment plans were discussed with patient, RN, case management and primary hospitalist Care management following for discharge planning / needs. Anticipated discharge destination: Home TBD Expected Discharge Date: TBD Patient is not medically stable for discharge today Lauren Hendricks NP Hospitalist 01/10/2024 1:34 PM [facility] [phone] (Contact by secure chat) HOSPITALIST PROGRESS NOTE: Patient: Vangie Yuen Date: 01/10/2024 female, 53 year old Admit Date: 01/09/2024 Attending: Darcie Saunders MD Subjective: Vangie Yuen is a 53 year old female who is being seen in follow up for Abdominalpain, right upper quadrant . Pt reports that she still has pain which is worse with movement ALLERGIES: Allergies as of 01/09/2024 - Reviewed 01/09/2024 Allergen Reaction Noted Ancef [cefazolin] Cough 01/09/2024 Doxycycline Cough 01/09/2024 Sulfa antibiotics RASH 01/09/2024 Past Medical History : Reviewed Past Social and Family History: Reviewed Medications : Reviewed Objective/Physical Exam Vital 24 Hour Range Last Value Temperature Temp Min: 97.3 ??F (36.3 ??C) Max: 98.2 ??F (36.8 ??C) 97.5 ??F (36.4 ??C) (01/10/241615) Pulse Pulse Min: 78 Max: 97 87 (01/10/24 161) Respiratory Resp Min: 15 Max: 18 16 (01/10/241615) Non-Invasive Blood Pressure BP Min: 116/76 Max: 130/87 124/85 (01/10/24 161) Pulse Oximetry SpO2 Min: 90 % Max: 95 % 92 % (01/10/241615) General: Well-developed and well nourished. Neurologic: Alert & oriented x 3. Cranial nerves II - XII grossly intact. No focal neurologicaldeficits. Psych: Well appearing female in no distress. Good eye contact. Speech is of a normal content and speed. Chest: Chest is symmetric. Breathing is non-labored. Lungs are clear to auscultation. No rales, rhonchi or wheezes. Breath sounds are equal bilaterally. Heart: Regular rate and rhythm. Normal S1 and S2 without S3 or S4. No murmur, rub or gallops. Abdomen: Soft, non-distended, tender, bowel sounds are active. No hepatomegaly or splenomegaly. No masses. Laboratory Results: Labs personally reviewed Diagnostics: Reviewed No results found for this or any previous visit. Medications/Infusions: Reviewed Assessment & Plan: Active Hospital Problems Diagnosis Abdominal pain, right upper quadrant Subcapsular hematoma of liver post aspiration of liver cyst-will continue pain management. Hemoglobin appears stable so will stop trending at this time Renal cyst-incidentally seen. Pt reportedly has history of polycystic kidney disease Acute kidney injury vs chronic kidney disease stage IIIa-will monitor. No recent creatinine currently available. Pt lives in [facility] where she gets her care. Type II diabetes mellitus-continue current management DVT Prophylaxis - pharmacologic held for hematoma Code status: Selective Treatment/DNR Central Line- none Noe Catheter- none Hospital Day #: Hospital Day: 2 Tentative discharge Disposition: pending further medical management Signed: Darcie Saunders MD 01/10/2024 5:45 PM * Milly Murillo RN - 01/09/2024 3:39 PM CDT Patient transported to room 7 in ER via cart. Bedside report of procedure and plan of care discussed with MÓNICA Robb. Questions encouraged and answered. RN in agreement with plan. Assessment of dressing to right upper quadrant site: clean, dry and intact. * Milly Murillo RN - 01/09/2024 3:14 PM CDT Patient with persistent right lower quadrant pain and now with referred pain to right shoulder/chest area. Follow up CT scan obtained. Results pending. She states it is quite painful to even take a shallow breath. Order received for one time dose of dilaudid. Dr. Llanos at bedside and is speaking to patient. documented in this encounter H&P Notes * Darcie Saunders MD - 01/09/2024 3:16 PM CDT History and physical Patient: Vangie Yuen Date: 01/09/2024 female, 53 year old Admit Date: 01/09/2024 Attending: Tariq Khan MD Date of service 01/09/2024 PRIMARY CARE PROVIDER: Marleni Jung aTTENDING Physician Tariq Khan MD CHIEF COMPLAINT abdominal pain HPI Vangie Yuen is a 53 year old female With PMH significant for below who presents with abdominal pain. Pt reports this started this morning. She has had sharp pains in the past but not this severe. It hurts to breath. It feels worse after cyst drainage. PAST MEDICAL & SURGICAL HISTORY Past Medical History: Diagnosis Date Diabetes mellitus (CMD) Past Surgical History: Procedure Laterality Date section, low transverse Cholecystectomy CURRENT MEDICATIONS (Not in a hospital admission) ALLERGIES ALLERGIES: Allergen Reactions Ancef [Cefazolin] Cough Doxycycline Cough Sulfa Antibiotics RASH SOCIAL HISTORY FAMILY HISTORY Father has polycystic kidney disease REVIEW OF SYSTEMS All systems reviewed and negative except for those mentioned in the history of present illness PHYSICAL EXAMINATION Vital 24 Hour Range Most Recent Value Temperature Temp Min: 98.1 ??F (36.7 ??C) Max: 98.1 ??F (36.7 ??C) 98.1 ??F (36.7 ??C) Pulse Pulse Min: 66 Max: 87 68 Respiratory Resp Min: 7 Max: 27 (!) 12 Blood Pressure BP Min: 111/74 Max: 152/103 111/74 Pulse Oximetry SpO2 Min: 89 % Max: 99 % 99 % General: Well-developed and well nourished. Neurologic: Alert & oriented x 3. Cranial nerves II - XII grossly intact. No focal neurologicaldeficits. Psych: Well appearing female in no distress. Good eye contact. Speech is of a normal content and speed. HEENT: PERRLA, EOMI. The external auditory canals are normal bilaterally. Nares are clear. The oralmucosa is moist and without lesions. The pharynx is clear. Neck: No masses, thyromegaly or adenopathy of neck or supraclavicular area. Chest: Chest is symmetric. Breathing is non-labored. Lungs are clear to auscultation. No rales, rhonchi or wheezes. Breath sounds are equal bilaterally. Heart: Regular rate and rhythm. Normal S1 and S2 without S3 or S4. No murmur, rub or gallops. Abdomen: Soft, non-distended, non-tender, bowel sounds are active. No hepatomegaly or splenomegaly.No masses. Labs Recent Labs Lab 01/09/24 1115 01/09/24 0859 01/09/24 0846 SODIUM -- -- 139 POTASSIUM -- -- 3.7 CHLORIDE -- -- 108 CO2 -- -- 27 BUN -- -- 18 CREATININE -- 1.20* 1.11* GLUCOSE -- -- 123* WBC -- -- 8.7 HGB -- -- 14.0 HCT -- -- 41.5 PLT -- -- 203 PT 10.9 -- -- INR 1.0 -- -- No results found No results found for this or any previous visit. No results found for this or any previous visit. No results found Code Status- No Order Assessment & plan: There are no active hospital problems to display for this patient. Subcapsular hematoma of liver post aspiration of liver cyst-will continue pain management and monitor hemoglobin. Renal cyst-incidentally seen. Pt reportedly has history of polycystic kidney disease Acute kidney injury vs chronic kidney disease stage IIIa-will monitor. No recent creatinine currently available. Pt lives in [facility] where she gets her care. Type II diabetes mellitus-will place on insulin while in the hospital DVT Prophylaxis- no pharmacologic for subcapsular hematoma Disposition- admit to observation GOALS OF CARE : Goals of care were discussed with the patient and family which included but not limited to anticipated treatment course during the current hospitalization, recovery from current event, discharge planning and transitions of care responsibilities and expected outcomes. Code Status was addressed on admission as well. End of life care discussion Done . Pt wishes to be a select DNR Is the patient expected to require a two midnight stay in the hospital? No I certify that I do not expect inpatient services for greater than two midnights are medically necessary for this patient. Please see H&P and Progress Notes for additional information about the patient's course of treatment. Darcie Saunders MD 01/09/2024 3:16 PM * Vivian Felix APNP - 01/09/2024 12:22 PM CDT Radiology Pre-Procedure Note Patient: Vangie Yuen Date: 01/09/2024 : 1970 Attending: Sabine Jerry DO 53 year old female Chief Complaint: Chief Complaint Patient presents with Abdominal Pain Chief Complaint Patient presents with Abdominal Pain Pre-Op Diagnosis: Liver cyst There are no problems to display for this patient. Past Medical History: Diagnosis Date Diabetes mellitus (CMD) Past Surgical History: Procedure Laterality Date section, low transverse Cholecystectomy Social History Tobacco Use Smoking status: Not on file Smokeless tobacco: Not on file Substance Use Topics Alcohol use: Not on file No family history on file. (Not in a hospital admission) Current Medications Reviewed: Yes Current Facility-Administered Medications Medication Dose Route Frequency Provider Last Rate Last Admin sodium chloride 0.9 % injector flush 100 mL 100 mL Injection PRN Sabine Jerry DO 100 mL at 01/09/24 0929 Current Outpatient Medications Medication Sig Dispense Refill buPROPion (WELLBUTRIN SR) 200 MG 12 hr [...] Take 300 mg by mouth at bedtime. ALLERGIES: Allergen Reactions Ancef [Cefazolin] Cough Doxycycline Cough Sulfa Antibiotics RASH Current Allergies Reviewed: Yes Review of Systems: Patient reports nausea. Denies vomiting No fevers overnight No chest pain or shortness of breath Status: not possible Last menstrual period: No LMP recorded. Laboratory Results: Lab Results Component Value Date SODIUM 139 01/09/2024 POTASSIUM 3.7 01/09/2024 BUN 18 01/09/2024 CREATININE 1.20 (H) 01/09/2024 WBC 8.7 01/09/2024 HCT 41.5 01/09/2024 HGB 14.0 01/09/2024 PLT 203 01/09/2024 INR 1.0 01/09/2024 BILIRUBIN 0.8 01/09/2024 GLUCOSE 123 (H) 01/09/2024 Lab Results Reviewed: Yes PHYSICAL ASSESSMENT Vital signs in last 24 hours: Temp: [98.1 ??F (36.7 ??C)] 98.1 ??F (36.7 ??C) Heart Rate: [78] 78 Resp: [16] 16 BP: (139-152)/(84-103) 139/84 Cardiac: regular Respiratory: unlabored Neurological: alert and coherent Vascular: warm, acyanotic Planned Procedure: Liver cyst aspiration The procedure, risks, benefits, and alternatives were discussed with the patient who gives consent to proceed: Yes A/P (DPI): Vangie Yuen is a 53 year old female with liver cyst Will proceed with liver cyst aspiration Assessing Physician: EZEQUIEL Fry Time: 12:24 PM documented in this encounter ED Notes * Clarisse Campoverde, RN - 01/09/2024 4:40 PM CDT ED provider notified of vital signs and reassessment. Patient remains appropriate for admission to Observation. * Tariq Khan MD - 01/09/2024 2:19 PM CDT Received signout on this patient who is here with abdominal pain. [place] to be related to her PCKD and today underwent US guided drainage of cyst by Dr. Llanos. Signed out to me pending return from IR and re-assessment. Labs Reviewed COMPREHENSIVE METABOLIC PANEL - Abnormal; Notable for the following components: Result Value Glucose 123 (*) Creatinine 1.11 (*) Glomerular Filtration Rate 59 (*) Alkaline Phosphatase 140 (*) Albumin 3.4 (*) A/G Ratio 0.9 (*) All other components within normal limits C REACTIVE PROTEIN - Abnormal; Notable for the following components: C-Reactive Protein 32.6 (*) All other components within normal limits LIPASE - Abnormal; Notable for the following components: Lipase 14 (*) All other components within normal limits COMPREHENSIVE METABOLIC PANEL - Abnormal; Notable for the following components: Glucose 127 (*) Creatinine 0.97 (*) Albumin 3.1 (*) A/G Ratio 0.9 (*) All other components within normal limits ISTAT CHEM8 - POINT OF CARE - Abnormal; Notable for the following components: TCO2 - POINT OF CARE 25 (*) GLUCOSE - POINT OF CARE 119 (*) CALCIUM, IONIZED - POINT OF CARE 1.11 (*) Creatinine 1.20 (*) Glomerular Filtration Rate 54 (*) All other components within normal limits GLUCOSE, BEDSIDE - POINT OF CARE - Abnormal; Notable for the following components: GLUCOSE, BEDSIDE - POINT OF CARE 143 (*) All other components within normal limits GLUCOSE, BEDSIDE - POINT OF CARE - Abnormal; Notable for the following components: GLUCOSE, BEDSIDE - POINT OF CARE 133 (*) All other components within normal limits GLUCOSE, BEDSIDE - POINT OF CARE - Abnormal; Notable for the following components: GLUCOSE, BEDSIDE - POINT OF CARE 132 (*) All other components within normal limits GLUCOSE, BEDSIDE - POINT OF CARE - Abnormal; Notable for the following components: GLUCOSE, BEDSIDE - POINT OF CARE 144 (*) All other components within normal limits GLUCOSE, BEDSIDE - POINT OF CARE - Abnormal; Notable for the following components: GLUCOSE, BEDSIDE - POINT OF CARE 145 (*) All other components within normal limits GLUCOSE, BEDSIDE - POINT OF CARE - Abnormal; Notable for the following components: GLUCOSE, BEDSIDE - POINT OF CARE 155 (*) All other components within normal limits PROTHROMBIN TIME (INR/PT) - Normal HEMOGLOBIN - Normal HEMOGLOBIN - Normal HEMOGLOBIN - Normal HEMOGLOBIN - Normal HEMOGLOBIN - Normal MAGNESIUM - Normal CBC WITH DIFFERENTIAL Narrative: The following orders were created for panel order CBC with Automated Differential. Procedure Abnormality Status --------- ------ CBC with Automated Dif...[[id number]] Final result Please view results for these tests on the individual orders. CBC WITH AUTOMATED DIFFERENTIAL (PERFORMABLE ONLY) Narrative: This is an appended report. These results have been appended to a previously verified report. PINK TOP TUBE LIGHT GREEN TOP CBC WITH DIFFERENTIAL Narrative: The following orders were created for panel order CBC with Automated Differential. Procedure Abnormality Status --------- ------ CBC with Automated Dif...[[id number]] Final result Please view results for these tests on the individual orders. CBC WITH AUTOMATED DIFFERENTIAL (PERFORMABLE ONLY) CBC WITH DIFFERENTIAL Narrative: The following orders were created for panel order CBC with Automated Differential. Procedure Abnormality Status --------- ------ CBC with Automated Dif...[[id number]] Please view results for these tests on the individual orders. BASIC METABOLIC PANEL CBC WITH AUTOMATED DIFFERENTIAL (PERFORMABLE ONLY) POCT CREATININE POCT METERED BLOOD GLUCOSE POCT METERED BLOOD GLUCOSE POCT METERED BLOOD GLUCOSE POCT METERED BLOOD GLUCOSE POCT METERED BLOOD GLUCOSE POCT METERED BLOOD GLUCOSE POCT METERED BLOOD GLUCOSE POCT METERED BLOOD GLUCOSE POCT METERED BLOOD GLUCOSE POCT METERED BLOOD GLUCOSE POCT METERED BLOOD GLUCOSE POCT METERED BLOOD GLUCOSE POCT METERED BLOOD GLUCOSE POCT METERED BLOOD GLUCOSE Interventions: Examination, patient teaching, labs , medications, observation. Status upon Re-Evaluation: Continued pain Otherwise the patient continues to be hemodynamically stable and otherwise well-appearing. Vital sign interpretation: Visit Vitals BP 120/79 (BP Location: LUE - Left upper extremity, Patient Position: Semi-Blanco's) Pulse 87 Temp 98 ??F (36.7 ??C) (Oral) Resp 15 Ht 5' 9 (1.753 m) Wt 113.3 kg (249 lb 12.5 oz) SpO2 94% BMI 36.89 kg/m?? Normal heart rate, normal respiratory rate, normal blood pressure, and good oxygen saturation on room air. Disposition: Admit Diagnosis: Abdominal pain Subcapsular hematoma Polycystic Kidney Disease Tariq Khan MD 01/11/24601 * Clarisse Campoverde RN - 01/09/2024 1:51 PM CDT Call received from IR, patient will be held a bit longer due to increased pain when removing catheter following cyst draining. IR reports they will monitor for about 45 mins. Family updated. * Clarisse Campoverde RN - 01/09/2024 1:00 PM CDT Patient not in dept, taken by IR for procedure. * Clarisse Campoverde RN - 01/09/2024 12:46 PM CDT Patient updated on treatment plan. No new complaints or needs at this time. Call light in reach. * Clarisse Campoverde RN - 01/09/2024 12:40 PM CDT Patient without complaints or needs at this time. Waiting for IR to arrive * Clarisse Campoverde RN - 01/09/2024 12:00 PM CDT Patient waiting for procedure. No new complaints or needs at this time * Clarisse Campoverde RN - 01/09/2024 11:19 AM CDT Patient updated on plan for procedure at 1300. Ambulatory to the bathroom * Clarisse Campoverde RN - 01/09/2024 10:54 AM CDT Call placed to ultrasound, will call back when available to do the procedure * Clarisse Campoverde RN - 01/09/2024 9:41 AM CDT No change in pain from Toradol. Patient updated on treatment plan. * Sabine Jerry DO - 01/09/2024 8:06 AM CDT Patient : Vangie Yuen Age: [age] year old Sex: female Encounter Date: 01/09/2024 History Chief Complaint Patient presents with Abdominal Pain HPI Vangie Yuen is a 53 year old female who presents to the ED for an evaluation of abdominal pain. Patient states that she has been experiencing right sided abdominal pain since last night that started around 2200 that has been constant and kept her up all night. Patient reports that the pain is made worse with a deep breath. Patient states that she felt normal up until onset. She notes a surgical history of 2 C- Sections and Cholecystectomy. She denies any traumas, fever, sore throat, cough, chest pain, diarrhea, nausea, vomiting, or urinary symptoms. Allergies Allergen Reactions Ancef [Cefazolin] Cough Doxycycline Cough Hydrocodone PRURITUS Sulfa Antibiotics RASH Discharge Medication List as of 01/11/2024 10:46 AM Prior to Admission Medications Details buPROPion (WELLBUTRIN SR) 200 MG 12 hr tablet Take 200 mg by mouth every morning.Historical Med furosemide (LASIX) 40 MG tablet Take 40 mg by mouth every morning.Historical Med hydrOXYzine (ATARAX) 50 MG tablet Take 50 mg by mouth at bedtime.Historical Med lamoTRIgine (LaMICtal) 25 MG tablet Take 50 mg by mouth in the morning and 50 mg in the evening.Historical Med metFORMIN (GLUCOPHAGE-XR) 500 MG 24 hr tablet Take 500 mg by mouth daily.Historical Med montelukast (SINGULAIR) 10 MG tablet Take 10 mg by mouth daily.Historical Med QUEtiapine (SEROquel XR) 300 MG 24 hr tablet Take 300 mg by mouth at bedtime.Historical Med hydrOXYzine (ATARAX) 10 MG tablet Take 10 mg by mouth 3 times daily as needed.Historical Med New Prescriptions Details acetaminophen (TYLENOL) 500 MG tablet Take 2 tablets by mouth every 6 hours as needed for Pain.OTC ketorolac (TORADOL) 10 MG tablet Take 1 tablet by mouth every 6 hours as needed for Pain.Eprescribe, Disp-20 tablet, R-0 traMADol (ULTRAM) 50 MG tablet Indication: Acute PainTake 1 tablet by mouth every 6 hours as neededfor Pain.Eprescribe, Disp-10 tablet, R-0 Past Medical History: Diagnosis Date Diabetes mellitus (CMD) Past Surgical History: Procedure Laterality Date SECTION, LOW TRANSVERSE CHOLECYSTECTOMY No family history on file. Social History Tobacco Use Smoking status: Never Passive exposure: Past Smokeless tobacco: Never Vaping Use Vaping status: never used Substance Use Topics Alcohol use: Yes Drug use: Never E-cigarette/Vaping E-Cigarette/Vaping Use Never Used E-Cigarette/Vaping Substances & Devices Review of Systems Constitutional: Negative for fever. HENT: Negative for sore throat. Respiratory: Negative for cough. Cardiovascular: Negative for chest pain. Gastrointestinal: Positive for abdominal pain. Negative for diarrhea, nausea and vomiting. Genitourinary: Negative for dysuria and hematuria. All other systems reviewed and are negative. Physical Exam ED Triage Vitals [01/09/24 0807] ED Triage Vitals Group Temp 98.1 ??F (36.7 ??C) Heart Rate 78 Resp 16 BP (!) 152/103 SpO2 96 % EtCO2 mmHg Height 5' 9 (1.753 m) Weight 249 lb 12.5 oz (113.3 kg) Weight Scale Used Standing scale BMI (Calculated) 36.89 IBW/kg (Calculated) 66.2 Physical Exam Vitals and nursing note reviewed. Constitutional: Appearance: She is well-developed. Comments: No acute distress HENT: Head: Normocephalic and atraumatic. Nose: Nose normal. Eyes: Extraocular Movements: Extraocular movements intact. Pupils: Pupils are equal, round, and reactive to light. Neck: Trachea: No tracheal deviation. Cardiovascular: Rate and Rhythm: Normal rate and regular rhythm. Pulses: Radial pulses are 2+ on the right side and 2+ on the left side. Pulmonary: Effort: Pulmonary effort is normal. No respiratory distress. Breath sounds: Normal breath sounds. No stridor. Abdominal: General: There is no distension. Palpations: Abdomen is soft. Comments: Tenderness right of umbilicus. Musculoskeletal: General: Normal range of motion. Cervical back: Normal range of motion. Skin: General: Skin is warm and dry. Neurological: Mental Status: She is alert and oriented to person, place, and time. Cranial Nerves: No cranial nerve deficit. Psychiatric: Behavior: Behavior normal. ED Course Procedures Lab Results Results for orders placed or performed during the hospital encounter of 01/09/24 Comprehensive Metabolic Panel Result Value Ref Range Fasting Status Sodium 139 135 - 145 mmol/L Potassium 3.7 3.4 - 5.1 mmol/L Chloride 108 97 - 110 mmol/L Carbon Dioxide 27 21 - 32 mmol/L Anion Gap 8 7 - 19 mmol/L Glucose 123 (H) 70 - 99 mg/dL BUN 18 6 - 20 mg/dL Creatinine 1.11 (H) 0.51 - 0.95 mg/dL Glomerular Filtration Rate 59 (L) >=60 BUN/Cr 16 7 - 25 Calcium 9.3 8.4 - 10.2 mg/dL Bilirubin, Total 0.8 0.2 - 1.0 mg/dL GOT/AST 13 <=37 Units/L GPT/ALT 19 <64 Units/L Alkaline Phosphatase 140 (H) 45 - 117 Units/L Albumin 3.4 (L) 3.6 - 5.1 g/dL Protein, Total 7.4 6.4 - 8.2 g/dL Globulin 4.0 2.0 - 4.0 g/dL A/G Ratio 0.9 (L) 1.0 - 2.4 C Reactive Protein Result Value Ref Range C-Reactive Protein 32.6 (H) <10.0 mg/L CBC with Automated Differential (performable only) Result Value Ref Range WBC 8.7 4.2 - 11.0 K/mcL RBC 4.98 4.00 - 5.20 mil/mcL HGB 14.0 12.0 - 15.5 g/dL HCT 41.5 36.0 - 46.5 % MCV 83.3 78.0 - 100.0 fl MCH 28.1 26.0 - 34.0 pg MCHC 33.7 32.0 - 36.5 g/dL RDW-CV 14.8 11.0 - 15.0 % RDW-SD 44.8 39.0 - 50.0 fL PLT 203 140 - 450 K/mcL NRBC 0 <=0 /100 WBC Neutrophil, Percent 73 % Lymphocytes, Percent 19 % [place], Percent 5 % Eosinophils, Percent 2 % Basophils, Percent 0 % Immature Granulocytes 1 % Absolute Neutrophils 6.3 1.8 - 7.7 K/mcL Absolute Lymphocytes 1.7 1.0 - 4.0 K/mcL Absolute Monocytes 0.5 0.3 - 0.9 K/mcL Absolute Eosinophils 0.2 0.0 - 0.5 K/mcL Absolute Basophils 0.0 0.0 - 0.3 K/mcL Absolute Immature Granulocytes 0.1 0.0 - 0.2 K/mcL Lipase Result Value Ref Range Lipase 14 (L) 15 - 77 Units/L Prothrombin Time (INR/PT) Result Value Ref Range Protime- PT 10.9 9.7 - 11.8 sec INR 1.0 Hemoglobin Result Value Ref Range HGB 13.3 12.0 - 15.5 g/dL Hemoglobin Result Value Ref Range HGB 13.2 12.0 - 15.5 g/dL [place] Top Tube Result Value Ref Range Extra Tube Hold for Add Ons Light Green Top Result Value Ref Range Extra Tube Hold for Add Ons Comprehensive Metabolic Panel Result Value Ref Range Fasting Status Sodium 137 135 - 145 mmol/L Potassium 4.4 3.4 - 5.1 mmol/L Chloride 107 97 - 110 mmol/L Carbon Dioxide 26 21 - 32 mmol/L Anion Gap 8 7 - 19 mmol/L Glucose 127 (H) 70 - 99 mg/dL BUN 15 6 - 20 mg/dL Creatinine 0.97 (H) 0.51 - 0.95 mg/dL Glomerular Filtration Rate 69 >=60 BUN/Cr 15 7 - 25 Calcium 8.5 8.4 - 10.2 mg/dL Bilirubin, Total 1.0 0.2 - 1.0 mg/dL GOT/AST 10 <=37 Units/L GPT/ALT 16 <64 Units/L Alkaline Phosphatase 117 45 - 117 Units/L Albumin 3.1 (L) 3.6 - 5.1 g/dL Protein, Total 6.6 6.4 - 8.2 g/dL Globulin 3.5 2.0 - 4.0 g/dL A/G Ratio 0.9 (L) 1.0 - 2.4 CBC with Automated Differential (performable only) Result Value Ref Range WBC 6.8 4.2 - 11.0 K/mcL RBC 4.41 4.00 - 5.20 mil/mcL HGB 12.5 12.0 - 15.5 g/dL HCT 37.9 36.0 - 46.5 % MCV 85.9 78.0 - 100.0 fl MCH 28.3 26.0 - 34.0 pg MCHC 33.0 32.0 - 36.5 g/dL RDW-CV 15.0 11.0 - 15.0 % RDW-SD 47.3 39.0 - 50.0 fL PLT 183 140 - 450 K/mcL NRBC 0 <=0 /100 WBC Neutrophil, Percent 70 % Lymphocytes, Percent 20 % [place], Percent 6 % Eosinophils, Percent 3 % Basophils, Percent 0 % Immature Granulocytes 1 % Absolute Neutrophils 4.8 1.8 - 7.7 K/mcL Absolute Lymphocytes 1.4 1.0 - 4.0 K/mcL Absolute Monocytes 0.4 0.3 - 0.9 K/mcL Absolute Eosinophils 0.2 0.0 - 0.5 K/mcL Absolute Basophils 0.0 0.0 - 0.3 K/mcL Absolute Immature Granulocytes 0.1 0.0 - 0.2 K/mcL Hemoglobin Result Value Ref Range HGB 12.7 12.0 - 15.5 g/dL Hemoglobin Result Value Ref Range HGB 12.3 12.0 - 15.5 g/dL Hemoglobin Result Value Ref Range HGB 12.5 12.0 - 15.5 g/dL Magnesium Result Value Ref Range Magnesium 2.2 1.7 - 2.4 mg/dL Basic Metabolic Panel Result Value Ref Range Fasting Status Sodium 138 135 - 145 mmol/L Potassium 4.1 3.4 - 5.1 mmol/L Chloride 108 97 - 110 mmol/L Carbon Dioxide 27 21 - 32 mmol/L Anion Gap 7 7 - 19 mmol/L Glucose 144 (H) 70 - 99 mg/dL BUN 18 6 - 20 mg/dL Creatinine 1.18 (H) 0.51 - 0.95 mg/dL Glomerular Filtration Rate 55 (L) >=60 BUN/Cr 15 7 - 25 Calcium 9.3 8.4 - 10.2 mg/dL CBC with Automated Differential (performable only) Result Value Ref Range WBC 7.8 4.2 - 11.0 K/mcL RBC 4.20 4.00 - 5.20 mil/mcL HGB 12.0 12.0 - 15.5 g/dL HCT 36.3 36.0 - 46.5 % MCV 86.4 78.0 - 100.0 fl MCH 28.6 26.0 - 34.0 pg MCHC 33.1 32.0 - 36.5 g/dL RDW-CV 14.8 11.0 - 15.0 % RDW-SD 46.4 39.0 - 50.0 fL PLT 189 140 - 450 K/mcL NRBC 0 <=0 /100 WBC Neutrophil, Percent 67 % Lymphocytes, Percent 22 % [place], Percent 6 % Eosinophils, Percent 3 % Basophils, Percent 1 % Immature Granulocytes 1 % Absolute Neutrophils 5.3 1.8 - 7.7 K/mcL Absolute Lymphocytes 1.7 1.0 - 4.0 K/mcL Absolute Monocytes 0.5 0.3 - 0.9 K/mcL Absolute Eosinophils 0.2 0.0 - 0.5 K/mcL Absolute Basophils 0.1 0.0 - 0.3 K/mcL Absolute Immature Granulocytes 0.0 0.0 - 0.2 K/mcL ISTAT8 VENOUS POINT OF CARE Result Value Ref Range BUN - POINT OF CARE 17 6 - 20 mg/dL SODIUM - POINT OF CARE 141 135 - 145 mmol/L POTASSIUM - POINT OF CARE 3.8 3.4 - 5.1 mmol/L CHLORIDE - POINT OF CARE 104 97 - 110 mmol/L TCO2 - POINT OF CARE 25 (H) 19 - 24 mmol/L ANION GAP - POINT OF CARE 17 7 - 19 mmol/L HEMATOCRIT - POINT OF CARE 42.0 36.0 - 46.5 % HEMOGLOBIN - POINT OF CARE 14.3 12.0 - 15.5 g/dL GLUCOSE - POINT OF CARE 119 (H) 70 - 99 mg/dL CALCIUM, IONIZED - POINT OF CARE 1.11 (L) 1.15 - 1.29 mmol/L Creatinine 1.20 (H) 0.51 - 0.95 mg/dL Glomerular Filtration Rate 54 (L) >=60 GLUCOSE, BEDSIDE - POINT OF CARE Result Value Ref Range GLUCOSE, BEDSIDE - POINT OF CARE 143 (H) 70 - 99 mg/dL GLUCOSE, BEDSIDE - POINT OF CARE Result Value Ref Range GLUCOSE, BEDSIDE - POINT OF CARE 133 (H) 70 - 99 mg/dL GLUCOSE, BEDSIDE - POINT OF CARE Result Value Ref Range GLUCOSE, BEDSIDE - POINT OF CARE 132 (H) 70 - 99 mg/dL GLUCOSE, BEDSIDE - POINT OF CARE Result Value Ref Range GLUCOSE, BEDSIDE - POINT OF CARE 144 (H) 70 - 99 mg/dL GLUCOSE, BEDSIDE - POINT OF CARE Result Value Ref Range GLUCOSE, BEDSIDE - POINT OF CARE 145 (H) 70 - 99 mg/dL GLUCOSE, BEDSIDE - POINT OF CARE Result Value Ref Range GLUCOSE, BEDSIDE - POINT OF CARE 155 (H) 70 - 99 mg/dL GLUCOSE, BEDSIDE - POINT OF CARE Result Value Ref Range GLUCOSE, BEDSIDE - POINT OF CARE 176 (H) 70 - 99 mg/dL EKG Results Radiology Results Imaging Results US ASPIRATION ABSCESS HEMATOMA CYST (Final result) Result time 01/09/24 16:01:23 Final result Impression: IMPRESSION: Successful ultrasound-guided aspiration. Electronically Signed by: Castillo Llanos MD Signed on: 01/09/2024 4:01 PM Created on Workstation ID: [id number] Signed on Workstation ID: [id number] Narrative: EXAM: US ASPIRATION ABSCESS HEMATOMA CYST CLINICAL HISTORY: LIVER CYST COMPARISON: CT abdomen and pelvis January 09, 2024 CONSENT: Informed consent was obtained from the patient and/or their appropriate durable power of civil rights attorney. The risks, benefits, and alternatives were discussed in detail and understanding was voiced. The opportunity to ask questions was given and all questions were answered. At the conclusion of the discussion the patient and/or DPOA provided informed consent and elected to proceed. TECHNIQUE: The patient was brought to the ultrasound suite. Preliminary lockstitch waistband setter ultrasound images were acquired and a puncture site was chosen to target dominant liver cyst in the right liver. The patient was then prepped and draped in usual sterile fashion. 1% lidocaine was used to anesthetize the skin. A Yueh needle was then advanced into the target lesion and 750 cc of clear yellow fluid was aspirated. The needle was removed and hemostasis was confirmed. There were no immediate complications. ANESTHESIA: 1% lidocaine was used for local anesthesia. IV fentanyl was given but no sedatives were administered INTERVENTIONAL RADIOLOGIST: Castillo Llanos M.D. FINDINGS: Images show the needle in the target fluid collection. CT ABDOMEN PELVIS W CONTRAST - IV contrast only (Final result) Result time 01/09/24 10:06:47 Final result Impression: IMPRESSION: Numerous hepatic cysts noted increased in size and number. Bilateral renal cysts also noted. There is a 5 cm exophytic cyst off the inferior right liver with mild surrounding inflammatory stranding and a visible peripheral wall, atypical for a simple cyst. This could indicate superimposed infected cyst or other pathology may explain the patient's pain. There Is also a dominant 15 cm simple cyst in the right liver. Electronically Signed by: Jone Shelton MD Signed on: 01/09/2024 10:06 AM Created on Workstation ID: [id number] Signed on Workstation ID: [id number] Narrative: EXAM: CT ABDOMEN PELVIS W CONTRAST 01/09/2024 9:28 AM HISTORY: right sided abd pain COMPARISON: Remote chest CT 11/24/2008 TECHNIQUE: 100 mL of Omnipaque 350 were given intravenously. Portal venous phase CT imaging of the abdomen and pelvis was performed. Multiplanar 2-D CT reformats were generated on a separate workstation. Utilization of dose lowering techniques was performed to include automated exposure control, adjustment of the mA and/or kV according to patient size, and use of the iterative reconstruction technique. FINDINGS: ABDOMEN: There are innumerable hepatic cysts in all segments of the liver. The cysts have increased in size and number compared to November 2008 the largest cyst is in the right liver and measures up to 15 cm in diameter. There is one exophytic cystic mass off the inferior right liver. There is adjacent fat stranding. The cyst also has a thin visible peripheral wall. This measures up to 5 cm in diameter. Multiple bilateral renal cysts also present. No suspicious hepatic or renal mass lesions are identified. The spleen, pancreas, and adrenal glands appear negative. PELVIS: The appendix is not discretely visualized. No inflammatory changes are seen in the right lower quadrant and pericecal regions. Pelvic imaging shows no significant mass or inflammatory change. No free fluid is seen.. ED Medication Orders (From admission, onward) Ordered Start Status Ordering Provider 01/09/24 0819 01/09/24 0820 ketorolac (TORADOL) injection 15 mg ONCE Last SEP action: Given SABINE JERRY ED Course as of 01/12/24 0802 TueJan 09, [address] Llanos IR. [NS] 1038 Consulted with MARYJO Cooley. [NS] ED Course User Index [NS] Jesse Tavares Medical Decision Making Based on Physical Exam and History, Pt had Toradol for pain. Patient's INR is 1, GFR 59 LFTs normalCRP 32.6 white count 8.7, lipase normal. Patient had a CT of the abdomen pelvis independently visualized images interpreted multiple liver renal cyst. Radiologist interpretation is there is increasedcyst and also no abscess possible some mild surrounding inflammatory stranding. I discussed the case with interventional radiology and GI. Interventional radiology took the patient for ultrasound-guided aspiration. Patient is not from here and will be going back home in another couple weeks; tryingto give the patient symptomatic relief. Patient signed out at shift change pending procedure and re-evaluation. Clinical Impression right-sided abdominal pain, hepatic cyst, renal cysts Clinical Impression ED Diagnosis 1. Abdominal pain, right upper quadrant traMADol (ULTRAM) 50 MG tablet 2. Hepatic cyst traMADol (ULTRAM) 50 MG tablet 3. Polycystic kidney disease Disposition Admit 01/09/2024 3:32 PM Telemetry Bed?: Yes Admitting Physician: DARCIE SAUNDERS [[id number]] Is this a telephone or verbal order?: This is a telephone order from the admitting physician This chart was documented by Jesse Tavares, acting as a scribe for Sabine Jerry DO. 01/09/2024, 8:23 AM. The documentation recorded by the scribe accurately and completely reflects the service(s) I personally performed and the decisions made by me. Sabine Jerry DO 01/12/24 0802 * Clarisse Campoverde RN - 01/09/2024 8:06 AM CDT Patient presents to the ED ambulatory with complaints of right lower abdominal pain. Reports it began last night. States pain is always present but pain intensifies with she takes a deep breath. Patient denies fever, nausea or vomiting. Denies any urinary symptoms. Reports having this before, states it usually goes away with heat. documented in this encounter Miscellaneous Notes * Focus Note - Darcie Cronin RN - 01/11/2024 11:26 AM CDT Reviewed discharge instructions with patient. Patient verbalized understanding of all instructions and had no further questions at this time. * Focus Note - Vivian Felix APNP - 01/10/2024 4:09 PM CDT IR note~ patient is s/p liver cyst aspiration on 01/09/2024. Subsequently admitted post procedure for pain control. Today, patient reports her pain is doing much better compared to yesterday, currently rated at a 6/10. Dressing site is clean, dry, and intact. Patient has no questions at this time. He moglobin is stable. Vital signs stable. Pain management per Hospitalist team. Okay to remove dressing to liver cyst aspiration site. No follow up with IR needed. Please call IR with questions or concerns. * PLAN OF CARE - Jada Clifford MSW - 01/10/2024 10:38 AM CDT Initial SW/CM Assessment/Plan of Care Note Baseline Assessment 53 year old admitted 01/09/2024 as Observation with a diagnosis of RUQ abdominal pain. Prior to admission patient was living with Spouse and residing at House. Patient does not have a Power of Public Health Worker for Healthcare. Patient???s Primary Care Provider is Marleni Jung. Progress Note Pt was discussed with team during OFT meeting. CM met with Pt to introduce self and discuss role indc planning. Pt lives at home with spouse in [place]. Pt was completely independent prior to admission. She does not use any DME and was not receiving any services prior to admission. Pt is currently in [facility] visiting her daughter. Pt is planning for spouse to pick her up from the hospital when medically stable to [place] and then returning home directly to [place] from hospital; if she is not feeling up to the travel, she will stay with her daughter temporarily until she is feeling better. Pt does not have a HC-POA document. CM provided education on the importance of creating a document.Pt will look into completing an [place] HC-POA once she returns home. CM encouraged Pt to provide copy when completed; reminder note added to AVS. No dc needs anticipated at this time. CM to continue to follow and will be available to assist if needs arise. Plan Patient/Family Discharge Goal: Home Is patient/family goal achievable: Yes SW/CM - Recommendations for Discharge: Home Anticipate patient will not need post-hospital services. Necessary services are available. Anticipate patient can return to the environment from which patient entered the hospital. Anticipate patient can provide self-care at discharge. Refer to SW/CM Flowsheet for objective data. Medical History Past Medical History: Diagnosis Date Diabetes mellitus (CMD) Prior to Admission Status Functional Status Ambulation: Independent/Self Bathing: Independent/Self Dressing: Independent/Self Toileting: Independent/Self Medication Preparation: Independent/Self Medication Administration: Independent/Self Transportation: Independent/Self Agency/Support Type of Services Prior to Hospitalization: None Support Systems: Spouse Home Devices/Equipment: None Mobility Assist Devices: None Sensory Support Devices: Eyeglasses Insurance Primary: [employer] Secondary: N/A Disposition Recommendations: SW/CM recommendation for discharge: Home * Brief Op Note - Vivian Felix APNP - 01/09/2024 1:00 PM CDT Immediate Brief Procedure Note Patient: Vangie Yuen Pre-op Diagnosis: liver cyst Post-op Diagnosis: Same Procedure: liver cyst aspiration Proceduralist: Dr. Castillo Llanos Assistants: none Anesthesia Staff: No anesthesia staff entered. Anesthesia Type: local, fentanyl Findings: liver cyst aspiration Estimated Blood Loss: minimal Complications: none Specimens Removed: none documented in this encounter Plan of Treatment Scheduled Orders Name Type Priority Associated Diagnoses Orde r Schedule Electrocardiogram 12-Lead EKG STAT If condition met for 1 Occurrences starting 01/09/2024 documented as of this encounter Procedures Procedure Name Priority Date/Time Associated Diagnosis Comments GLUCOSE, BEDSIDE - POINT OF CARE Routine 01/11/2024 6:37 AM CDT CBC WITH DIFFERENTIAL Routine 01/11/2024 6:07 AM CDT CBC WITH AUTOMATED DIFFERENTIAL (PERFORMABLE ONLY) Routine 01/11/2024 6:07 AM CDT BASIC METABOLIC PANEL Routine 01/11/2024 6:07 AM CDT GLUCOSE, BEDSIDE - POINT OF CARE Routine 01/10/2024 8:45 PM CDT GLUCOSE, BEDSIDE - POINT OF CARE Routine 01/10/2024 4:18 PM CDT HEMOGLOBIN Timed 01/10/2024 4:02 PM CDT HEMOGLOBIN Timed 01/10/2024 12:02 PM CDT GLUCOSE, BEDSIDE - POINT OF CARE Routine 01/10/2024 11:32 AM CDT GLUCOSE, BEDSIDE - POINT OF CARE Routine 01/10/2024 10:35 AM CDT HEMOGLOBIN Timed 01/10/2024 8:22 AM CDT GLUCOSE, BEDSIDE - POINT OF CARE Routine 01/10/2024 6:17 AM CDT CBC WITH DIFFERENTIAL Routine 01/10/2024 4:17 AM CDT CBC WITH AUTOMATED DIFFERENTIAL (PERFORMABLE ONLY) Routine 01/10/2024 4:17 AM CDT MAGNESIUM Add-On 01/10/2024 4:17 AM CDT COMPREHENSIVE METABOLIC PANEL Routine 01/10/2024 4:17 AM CDT HEMOGLOBIN Timed 01/10/2024 12:08 AM CDT GLUCOSE, BEDSIDE - POINT OF CARE Routine 01/09/2024 8:44 PM CDT HEMOGLOBIN Timed 01/09/2024 7:[address] ABDOMEN PELVIS WO CONTRAST STAT 01/09/2024 3:02 PM CDT US ASPIRATION ABSCESS HEMATOMA CYST STAT 01/09/2024 1:39 PM CDT PROTHROMBIN TIME (INR/PT) STAT 01/09/2024 11:[address] ABDOMEN PELVIS W CONTRAST STAT 01/09/2024 9:28 AM CDT ISTAT CHEM8 - POINT OF CARE Routine 01/09/2024 8:59 AM CDT CBC WITH DIFFERENTIAL STAT 01/09/2024 8:46 AM CDT CBC WITH AUTOMATED DIFFERENTIAL (PERFORMABLE ONLY) STAT 01/09/2024 8:46 AM CDT LIPASE STAT 01/09/2024 8:46 AM CDT COMPREHENSIVE METABOLIC PANEL STAT 01/09/2024 8:46 AM CDT C REACTIVE PROTEIN STAT 01/09/2024 8: 46 AM CDT documented in this encounter Results * (ABNORMAL) GLUCOSE, BEDSIDE - POINT OF CARE (01/11/2024 6:37 AM CDT) GLUCOSE, BEDSIDE - POINT OF CARE 176(H) 70 - 99 mg/dL 01/11/2024 6:37 AM CDT [facility] Blood CAPILLARY BLOOD SPECIMEN / Unknown 01/11/2024 6:37 AM CDT 01/11/2024 6:40 AM CDT Darcie Saunders MD BKR LAB PT OF CARE [facility] [address] [place] [address] * CBC with Automated Differential (performable only) (01/11/2024 6:07 AM CDT) [facility] WBC 7.8 4.2 - 11.0 K/mcL 01/11/2024 6:12 AM CDT [facility] RBC 4.20 4.00 - 5.20 mil/mcL 01/11/2024 6:12 AM CDT [facility] HGB 12.0 12.0 - 15.5 g/dL 01/11/2024 6:12 AM CDT [facility] HCT 36.3 36.0 - 46.5 % 01/11/2024 6:12 AM CDT [facility] MCV 86.4 78.0 - 100.0 fl 01/11/2024 6:12 AM CDT [facility] MCH 28.6 26.0 - 34.0 pg 01/11/2024 6:12 AM CDT [facility] MCHC 33.1 32.0 - 36.5 g/dL 01/11/2024 6:12 AM CDT [facility] RDW-CV 14.8 11.0 - 15.0 % 01/11/2024 6:12 AM CDT [facility] RDW-SD 46.4 39.0 - 50.0 fL 01/11/2024 6:12 AM CDT [facility] PLT 189 140 - 450 K/mcL 01/11/2024 6:12 AM CDT [facility] NRBC 0 <=0 /100 WBC 01/11/2024 6:12 AM CDT [facility] Neutrophil, Percent 67 % 01/11/2024 6:12 AM CDT [facility] Lymphocytes, Percent 22 % 01/11/2024 6:12 AM CDT [facility] [place], Percent 6 % 01/11/2024 6:12 AM CDT [facility] Eosinophils, Percent 3 % 01/11/2024 6:12 AM CDT [facility] Basophils, Percent 1 % 01/11/2024 6:12 AM CDT [facility] Immature Granulocytes 1 % 01/11/2024 6:12 AM CDT [facility] Absolute Neutrophils 5.3 1.8 - 7.7 K/[facility] 01/11/2024 6:12 AM CDT [facility] Absolute Lymphocytes 1.7 1.0 - 4.0 K/[facility] 01/11/2024 6:12 AM CDT [facility] Absolute Monocytes 0.5 0.3 - 0.9 K/[facility] 01/11/2024 6:12 AM CDT [facility] Absolute Eosinophils 0.2 0.0 - 0.5 K/[facility] 01/11/2024 6:12 AM CDT [facility] Absolute Basophils 0.1 0.0 - 0.3 K/[facility] 01/11/2024 6:12 AM CDT [facility] Absolute Immature Granulocytes 0.0 0.0 - 0.2 K/[facility] 01/11/2024 6:12 AM CDT [facility] Blood VENOUS BLOOD SPECIMEN / Unknown Venipuncture / Unknown 01/11/2024 6:07 AM CDT 01/11/2024 6:09 AM CDT Narrative [facility] - 01/11/2024 6:12 AM CDT This is an appended report. ??These results have been appended to a previously verified report. Darcie Saunders MD BKR LAB BLOOD ORDERA BLES [facility] [address] [place] [address] * (ABNORMAL) Basic Metabolic Panel (01/11/2024 6:07 AM CDT) Fasting Status 01/11/2024 6:50 AM CDT [facility] Sodium 138 135 - 145 mmol/L 01/11/2024 6:50 AM CDT [facility] Potassium 4.1 3.4 - 5.1 mmol/L 01/11/2024 6:50 AM CDT [facility] Chloride 108 97 - 110 mmol/L 01/11/2024 6:50 AM CDT [facility] Carbon Dioxide 27 21 - 32 mmol/L 01/11/2024 6:50 AM T [facility] Anion Gap 7 7 - 19 mmol/L 01/11/2024 6:50 AM CDT [facility] Glucose 144(H) 70 - 99 mg/dL 01/11/2024 6:50 AM CDT [facility] BUN 18 6 - 20 mg/dL 01/11/2024 6:50 AM CDT [facility] Creatinine 1.18(H) 0.51 - 0.95 mg/dL 01/11/2024 6:50 AM CDT [facility] Glomerular Filtration Rate 55(L) >=60 01/11/2024 6:50 AM CDT [facility] Comment:eGFR 30-59 mL/min/1. 73m2 = Moderate decrease in kidney function. Stage 3 CKD (chronic kidney disease) or moderate kidney disease. Estimated GFR calculated using the CKD-EPI-R (2020) equation that does not include race in the creatinine calculation. BUN/Cr 15 7 - 25 01/11/2024 6:50 AM CDT [facility] Calcium 9.3 8.4 - 10.2 mg/dL 01/11/2024 6:50 AM CDT [facility] Blood VENOUS BLOOD SPECIMEN / Unknown Venipuncture / Unknown 01/11/2024 6:07 AM CDT 01/11/2024 6:09 AM CDT Darcie Saunders MD [place] [address] * (ABNORMAL) GLUCOSE, BEDSIDE - POINT OF CARE (01/10/2024 8:45 PM CDT) GLUCOSE, BEDSIDE - POINT OF CARE 155(H) 70 - 99 mg/dL 01/10/2024 8:45 PM CDT [facility] Blood CAPILLARY BLOOD SPECIMEN / Unknown 01/10/2024 8:45 PM CDT 01/10/2024 8:47 PM CDT Darcie CAMARILLOR LAB PT OF CARE [facility] [place] [address] * (ABNORMAL) GLUCOSE, BEDSIDE - POINT OF CARE (01/10/2024 4:18 PM CDT) GLUCOSE, BEDSIDE - POINT OF CARE 145(H) 70 - 99 mg/dL 01/10/2024 4:18 PM CDT [facility] Blood CAPILLARY BLOOD SPECIMEN / Unknown 01/10/2024 4:18 PM CDT 01/10/2024 4:21 PM CDT Darcie Saunders MD BKR LAB PT OF CARE [facility] [place] [id number] * Hemoglobin (01/10/2024 4:02 PM CDT) HGB 12.5 12.0 - 15.5 g/dL 01/10/2024 4:12 PM CDT [facility] Blood VENOUS BLOOD SPECIMEN / Unknown Venipuncture / Unknown 01/10/2024 4:02 PM CDT 01/10/2024 4:10 PM CDT Darcie Saunders MD BKR LAB BLOOD ORDERA BLES [address] [address] * Hemoglobin (01/10/2024 12:02 PM CDT) HGB 12.3 12.0 - 15.5 g/dL 01/10/2024 12:07 PM CDT [facility] Blood VENOUS BLOOD SPECIMEN / Unknown Venipuncture / Unknown 01/10/2024 12:02 PM CDT 01/10/2024 12:04 PM CDT Darcie Saunders MD BKR LAB BLOOD ORDERA BLES [address] [address] * (ABNORMAL) GLUCOSE, BEDSIDE - POINT OF CARE (01/10/2024 11:32 AM CDT) GLUCOSE, BEDSIDE - POINT OF CARE 144(H) 70 - 99 mg/dL 01/10/2024 11:32 AM CDT [facility] Blood CAPILLARY BLOOD SPECIMEN / Unknown 01/10/2024 11:32 AM CDT 01/10/2024 11:41 AM CDT Darcie Saunders MD BKR LAB PT OF CARE [facility] [place] [id number] * (ABNORMAL) GLUCOSE, BEDSIDE - POINT OF CARE (01/10/2024 10:35 AM CDT) GLUCOSE, BEDSIDE - POINT OF CARE 132(H) 70 - 99 mg/dL 01/10/2024 10:35 AM CDT [facility] Blood CAPILLARY BLOOD SPECIMEN / Unknown 01/10/2024 10:35 AM CDT 01/10/2024 10:37 AM CDT Darcie Saunders MD BKR LAB PT OF [facility] Performing Organization Address City/[facility]/ZIP Co de Phone Number [address] [address] * Hemoglobin (01/10/2024 8:22 AM CDT) HGB 12.7 12.0 - 15.5 g/dL 01/10/2024 8:53 AM CDT [facility] Blood VENOUS BLOOD SPECIMEN / Unknown Venipuncture / Unknown 01/10/2024 8:22 AM CDT 01/10/2024 8:49 AM CDT Darcie Saunders MD BKR LAB BLOOD ORDERA BLES Performing Organization Address City/[facility]/ZIP Co de Phone Number [address] [address] * (ABNORMAL) GLUCOSE, BEDSIDE - POINT OF CARE (01/10/2024 6:17 AM CDT) GLUCOSE, BEDSIDE - POINT OF CARE 133(H) 70 - 99 mg/dL 01/10/2024 6:17 AM CDT [facility] Blood CAPILLARY BLOOD SPECIMEN / Unknown 01/10/2024 6:17 AM CDT 01/10/2024 6:19 AM CDT Darcie Saunders MD BKR LAB PT [facility] [address] * Magnesium (01/10/2024 4:17 AM CDT) Magnesium 2.2 1.7 - 2.4 mg/dL 01/10/2024 10:24 AM CDT [facility] Blood VENOUS BLOOD SPECIMEN / Unknown Venipuncture / Unknown 01/10/2024 4:17 AM CDT 01/10/2024 4:20 AM CDT Lauren Hendricks NP [place]KR [place] [address] * CBC with Automated Differential (performable only) (01/10/2024 4:17 AM CDT) WBC 6.8 4.2 - 11.0 K/mcL 01/10/2024 4:23 AM CDT [facility] RBC 4.41 4.00 - 5.20 mil/mcL 01/10/2024 4:23 AM CDT [facility] HGB 12.5 12.0 - 15.5 g/dL 01/10/2024 4:23 AM CDT [facility] HCT 37.9 36.0 - 46.5 % 01/10/2024 4:23 AM CDT [facility] MCV 85.9 78.0 - 100.0 fl 01/10/2024 4:23 AM CDT [facility] MCH 28.3 26.0 - 34.0 pg 01/10/2024 4:23 AM [facility] MCHC 33.0 32.0 - 36.5 g/dL 01/10/2024 4:23 AM [facility] RDW-CV 15.0 11.0 - 15.0 % 01/10/2024 4:23 AM [facility] RDW-SD 47.3 39.0 - 50.0 fL 01/10/2024 4:23 AM [facility] PLT 183 140 - 450 K/mcL 01/10/2024 4:23 AM [facility] NRBC 0 <=0 /100 WBC 01/10/2024 4:23 AM [facility] Neutrophil, Percent 70 % 01/10/2024 4:23 AM [facility] Lymphocytes, Percent 20 % 01/10/2024 4:23 AM [facility] [place], Percent 6 % 01/10/2024 4:23 AM [facility] Eosinophils, Percent 3 % 01/10/2024 4:23 AM [facility] Basophils, Percent 0 % 01/10/2024 4:23 AM [facility] Immature Granulocytes 1 % 01/10/2024 4:23 AM [facility] Absolute Neutrophils 4.8 1.8 - 7.7 K/mcL 01/10/2024 4:23 AM [facility] Absolute Lymphocytes 1.4 1.0 - 4.0 K/mcL 01/10/2024 4:23 AM [facility] Absolute Monocytes 0.4 0.3 - 0.9 K/mcL 01/10/2024 4:23 AM [facility] Absolute Eosinophils 0.2 0.0 - 0.5 K/mcL 01/10/2024 4:23 AM [facility] Absolute Basophils 0.0 0.0 - 0.3 K/mcL 01/10/2024 4:23 AM [facility] Absolute Immature Granulocytes 0.1 0.0 - 0.2 K/mcL 01/10/2024 4:23 AM [facility] Blood VENOUS BLOOD SPECIMEN / Unknown Venipuncture / Unknown 01/10/2024 4:17 AM CDT 01/10/2024 4:19 AM CDT Darcie Saunders MD BKR LAB BLOOD ORDERA BLES [facility] [address] [place] [address] * (ABNORMAL) Comprehensive Metabolic Panel (01/10/2024 4:17 AM CDT) Fasting Status 01/10/2024 4:44 AM T [facility] Sodium 137 135 - 145 mmol/L 01/10/2024 4:44 AM T [facility] Potassium 4.4 3.4 - 5.1 mmol/L 01/10/2024 4:44 AM T [facility] Chloride 107 97 - 110 mmol/L 01/10/2024 4:44 AM T [facility] Carbon Dioxide 26 21 - 32 mmol/L 01/10/2024 4:44 AM T [facility] Anion Gap 8 7 - 19 mmol/L 01/10/2024 4:44 AM T [facility] Glucose 127(H) 70 - 99 mg/dL 01/10/2024 4:44 AM T [facility] BUN 15 6 - 20 mg/dL 01/10/2024 4:44 AM [facility] Creatinine 0.97(H) 0.51 - 0.95 mg/dL 01/10/2024 4:44 AM T [facility] Glomerular Filtration Rate 69 >=60 01/10/2024 4:44 AM T [facility] Comment:eGFR results = or >6 0 mL/min/1.73m2 = Normal kidney function. Estimated GFR calculated using the CKD-EPI-R (2020) equation that does not include race in the creatinine calculation. BUN/Cr 15 7 - 25 01/10/2024 4:44 AM T [facility] Calcium 8.5 8.4 - 10.2 mg/dL 01/10/2024 4:44 AM [facility] [facility] Bilirubin, Total 1.0 0.2 - 1.0 mg/dL 01/10/2024 4:44 AM CDT [facility] GOT/AST 10 <=37 Units/L 01/10/2024 4:44 AM CDT [facility] GPT/ALT 16 <64 Units/L 01/10/2024 4:44 AM CDT [facility] Alkaline Phosphatase 117 45 - 117 Units/L 01/10/2024 4:44 AM CDT [facility] Albumin 3.1(L) 3.6 - 5.1 g/dL 01/10/2024 4:44 AM CDT [facility] Protein, Total 6.6 6.4 - 8.2 g/dL 01/10/2024 4:44 AM CDT [facility] Globulin 3.5 2.0 - 4.0 g/dL 01/10/2024 4:44 AM CDT [facility] A/G Ratio 0.9(L) 1.0 - 2.4 01/10/2024 4:44 AM CDT [facility] Blood VENOUS BLOOD SPECIMEN / Unknown Venipuncture / Unknown 01/10/2024 4:17 AM CDT 01/10/2024 4:20 AM CDT Darcie Saunders MD [place] [address] * Hemoglobin (01/10/2024 12:08 AM CDT) HGB 13.2 12.0 - 15.5 g/dL 01/10/2024 12:13 AM CDT [facility] Blood VENOUS BLOOD SPECIMEN / Unknown Venipuncture / Unknown 01/10/2024 12:08 AM CDT 01/10/2024 12:11 AM CDT Darcie Saunders MD [place] [address] * (ABNORMAL) GLUCOSE, BEDSIDE - POINT OF CARE (01/09/2024 8:44 PM CDT) GLUCOSE, BEDSIDE - POINT OF CARE 143(H) 70 - 99 mg/dL 01/09/2024 8:44 PM CDT [facility] Blood CAPILLARY BLOOD SPECIMEN / Unknown 01/09/2024 8:44 PM CDT 01/09/2024 8:46 PM CDT Darcie Saunders MD BKR LAB PT OF [facility] [address] [address] * Light Green Top (01/09/2024 7:47 PM CDT) Extra Tube Hold for Add Ons 01/10/2024 4:01 AM CDT [facility] Blood VENOUS BLOOD SPECIMEN / Unknown Venipuncture / Unknown 01/09/2024 7:47 PM CDT 01/09/2024 7:49 PM CDT Darcie Saunders MD BKR LAB BLOOD ORDERA BLES [address] [address] * [place] Top Tube (01/09/2024 7:47 PM CDT) Extra Tube Hold for Add Ons 01/10/2024 4:01 AM CDT [facility] Blood VENOUS BLOOD SPECIMEN / Unknown Venipuncture / Unknown 01/09/2024 7:47 PM CDT 01/09/2024 7:49 PM CDT Darcie Saunders MD BKR LAB BLOOD ORDERA BLES [address] [address] * Hemoglobin (01/09/2024 7:47 PM CDT) HGB 13.3 12.0 - 15.5 g/dL 01/09/2024 7:51 PM CDT [facility] Blood VENOUS BLOOD SPECIMEN / Unknown Venipuncture / Unknown 01/09/2024 7:47 PM CDT 01/09/2024 7:49 PM CDT Darcie Saunders MD BKR LAB BLOOD ORDERA BLES [facility] [address] [place] [address] * CT ABDOMEN PELVIS WO CONTRAST (01/09/2024 3:02 PM CDT) Anatomical Region Laterality Modality Abdomen, Pelvis, Abdomen/Pelvis Computed Tomography 01/09/2024 3:24 PM CDT Impressions 01/09/2024 3:38 PM CDT IMPRESSION: 1. Crescentic subcapsular hematoma measuring 1 x 14 cm and overlying the right hepatic lobe which was the site of aspiration. Within the dominant right hepatic lobe cyst, there is a linear shape mural hematoma near the site of prior needle entry which measures 9.1 x 5.2 cm. No clear evidence of active extravasation. Electronically Signed by: Castillo Llanos MD Signed on: 01/09/2024 3:38 PM Created on Workstation ID: [id number] Signed on Workstation ID: [id number] Narrative 01/09/2024 3:38 PM CDT EXAM: CT ABDOMEN PELVIS WO CONTRAST HISTORY: abdominal pain s/p liver cyst aspiration, severe pain COMPARISON: CT abdomen and pelvis with contrast January 09, 2024 at 0908 hours TECHNIQUE: Helical axial CT images of the abdomen and pelvis were obtained without IV contrast. Oral contrast was ??not ??administered. Coronal and sagittal reconstructions were performed. Individualize dose optimization technique was used for the performed procedure by employing ??the following: Automated exposure control, adjustment of the mA and/or kV according to patient's size, and/or the use of the iterative construction technique. FINDINGS: The partially visualized lung bases are clear. There is a new and thin crescentic high density fluid collection around the lateral aspect of the liver, presumably a subcapsular hematoma. The hematoma is thin, measuring about 1.0 cm in thickness, but wraps around the lateral aspect of the right hepatic lobe for a distance of approximately 18 cm. The dominant right hepatic lobe liver cyst which was accessed is reduced in size, but there is a lens lens shaped wall adherent hematoma on the lateral aspect of this which measures approximately 9 x 5.2 cm. Elsewhere in the liver innumerable liver cysts are again identified and appear grossly unchanged. The patient is again status post cholecystectomy. The pancreas, spleen, and bilateral adrenal glands are unchanged. Numerous cysts are seen in the bilateral kidneys which appear unchanged with exception of contrast in the collecting system from the prior study. The bowel is normal in caliber and wall thickness. There is a trace amount of fluid tracking down the right paracolic gutter towards the cecum. In the pelvis the bladder and uterus appear normal. The osseous structures are stable in appearance. Procedure Note Castillo Llanos MD - 01/09/2024 EXAM: CT ABDOMEN PELVIS WO CONTRAST HISTORY: abdominal pain s/p liver cyst aspiration, severe pain COMPARISON: CT abdomen and pelvis with contrast January 09, 2024 at 0908hours TECHNIQUE: Helical axial CT images of the abdomen and pelvis wereobtained without IV contrast. Oral contrast was not administered. Coronal and sagittal reconstructions were performed. Individualize dose optimization technique was used for the performed procedure by employing thefollowing: Automated exposure control, adjustment of the mA and/or kV according to patient's size, and/or the use of the iterative construction technique. FINDINGS: The partially visualized lung bases are clear. There is a new and thin crescentic high density fluid collection aroundthe lateral aspect of the liver, presumably a subcapsular hematoma. The hematoma is thin, measuring about 1.0 cm in thickness, but wraps aroundthe lateral aspect of the right hepatic lobe for a distance of [id number] cm. The dominant right hepatic lobe liver cyst which was accessed is reduced in size, but there is a lens lens shaped wall adherent hematomaon the lateral aspect of this which measures approximately 9 x 5.2 cm. Elsewhere in the liver innumerable liver cysts are again identified and appear grossly unchanged. The patient is again status post cholecystectomy. The pancreas, spleen,and bilateral adrenal glands are unchanged. Numerous cysts are seen in the bilateral kidneys which appear unchanged with exception of contrast inthe collecting system from the prior study. The bowel is normal in caliberand wall thickness. There is a trace amount of fluid tracking down the right paracolic gutter towards the cecum. In the pelvis the bladder and uterus appear normal. The osseous structures are stable in appearance. IMPRESSION: 1. Crescentic subcapsular hematoma measuring 1 x 14 cm and overlying the right hepatic lobe which was the site of aspiration. Within the dominant right hepatic lobe cyst, there is a linear shape mural hematoma near the site of prior needle entry which measures 9.1 x 5.2 cm. No clearevidence of active extravasation. Electronically Signed by: Castillo Llanos MD Signed on: 01/09/2024 3:38 PM Created on Workstation ID: [id number] Signed on Workstation ID: [id number] Castillo Llanos MD IMG CT PROCEDURES * US ASPIRATION ABSCESS HEMATOMA CYST (01/09/2024 1:39 PM CDT) Anatomical Region Laterality Modality N/A Ultrasound 01/09/2024 4:00 PM CDT Impressions 01/09/2024 4:01 PM CDT IMPRESSION: Successful ultrasound-guided aspiration. Electronically Signed by: Castillo Llanos MD Signed on: 01/09/2024 4:01 PM Created on Workstation ID: [id number] Signed on Workstation ID: [id number] Narrative 01/09/2024 4:01 PM CDT EXAM: US ASPIRATION ABSCESS HEMATOMA CYST CLINICAL HISTORY: ??LIVER CYST COMPARISON: CT abdomen and pelvis January 09, 2024 CONSENT: Informed consent was obtained from the patient and/or their appropriate durable power of civil rights attorney. The risks, benefits, and alternatives were discussed in detail and understanding was voiced. The opportunity to ask questions was given and all questions were answered. At the conclusion of the discussion the patient and/or DPOA provided informed consent and elected to proceed. TECHNIQUE: The patient was brought to the ultrasound suite. Preliminary lockstitch waistband setter ultrasound images were acquired and a puncture site was chosen to target dominant liver cyst in the right liver. The patient was then prepped and draped in usual sterile fashion. 1% lidocaine was used to anesthetize the skin. A Pokeneh needle was then advanced into the target lesion and 750 cc of clear yellow fluid was aspirated. ??The needle was removed and hemostasis was confirmed. There were no immediate complications. ANESTHESIA: 1% lidocaine was used for local anesthesia. IV fentanyl was given but no sedatives were administered INTERVENTIONAL RADIOLOGIST: Castillo Llanos M.D. FINDINGS: Images show the needle in the target fluid collection. Procedure Note Castillo Llanos MD - 01/09/2024 EXAM: US ASPIRATION ABSCESS HEMATOMA CYST CLINICAL HISTORY: LIVER CYST COMPARISON: CT abdomen and pelvis January 09, 2024 CONSENT: Informed consent was obtained from the patient and/or their appropriate durable power of civil rights attorney. The risks, benefits, and alternatives were discussed in detail and understanding was voiced. The opportunity to ask questions was given and all questions were answered.At the conclusion of the discussion the patient and/or DPOA providedinformed consent and elected to proceed. TECHNIQUE: The patient was brought to the ultrasound suite. Preliminary lockstitch waistband setter ultrasound images were acquired and a puncture site was chosen to target dominant liver cyst in the right liver. The patient was thenprepped and draped in usual sterile fashion. 1% lidocaine was used toanesthetize the skin. A Yueh needle was then advanced into the target lesion and 750cc of clear yellow fluid was aspirated. The needle was removed andhemostasis was confirmed. There were no immediate complications. ANESTHESIA: 1% lidocaine was used for local anesthesia. IV fentanyl was given but no sedatives were administered INTERVENTIONAL RADIOLOGIST: Castillo Llanos M.D. FINDINGS: Images show the needle in the target fluid collection. IMPRESSION: Successful ultrasound-guided aspiration. Electronically Signed by: Castillo Llanos MD Signed on: 01/09/2024 4:01 PM Created on Workstation ID: [id number] Signed on Workstation ID: [id number] Sabine Jerry DO [facility] US PROCEDURES * Prothrombin Time (INR/PT) (01/09/2024 11:15 AM CDT) Protime- PT 10.9 9.7 - 11.8 sec 01/09/2024 11:36 AM CDT [facility] INR 1.0 01/09/2024 11:36 AM CDT [facility] Comment:INR Therapeutic Rang e: 2.0 to 3.0 (2.5 to 3.5 recommended for recurrent thrombotic episodes and mechanical prosthetic heart valves.) Blood VENOUS BLOOD SPECIMEN / Unknown Venipuncture / Unknown 01/09/2024 11:15 AM CDT 01/09/2024 11:21 AM CDT Sabine Jerry DO BKR LAB BLOOD ORDE DAYO [facility] [address] [place] [address] * CT ABDOMEN PELVIS W CONTRAST - IV contrast only (01/09/2024 9:28 AM CDT) Anatomical Region Laterality Modality Abdomen, Pelvis, Abdomen/Pelvis Computed Tomography 01/09/2024 9:49 AM CDT Impressions 01/09/2024 10:06 AM CDT IMPRESSION: Numerous hepatic cysts noted increased in size and number. Bilateral renal cysts also noted. There is a 5 cm exophytic cyst off the inferior right liver with mild surrounding inflammatory stranding and a visible peripheral wall, atypical for a simple cyst. This could indicate superimposed infected cyst or other pathology may explain the patient's pain. There Is also a dominant 15 cm simple cyst in the right liver. Electronically Signed by: Jone Shelton MD Signed on: 01/09/2024 10:06 AM Created on Workstation ID: [id number] Signed on Workstation ID: [id number] Narrative 01/09/2024 10:06 AM CDT EXAM: CT ABDOMEN PELVIS W CONTRAST 01/09/2024 9:28 AM HISTORY: right sided abd pain COMPARISON: Remote chest CT 11/24/2008 TECHNIQUE: ??100 mL of Omnipaque 350 were given intravenously. Portal venous phase CT imaging of the abdomen and pelvis was performed. Multiplanar 2-D CT reformats were generated on a separate workstation. Utilization of dose lowering techniques was performed to include automated exposure control, adjustment of the mA and/or kV according to patient size, and use of the iterative reconstruction technique. FINDINGS: ABDOMEN: There are innumerable hepatic cysts in all segments of the liver. The cysts have increased in size and number compared to November 2008 the largest cyst is in the right liver and measures up to 15 cm in diameter. There is one exophytic cystic mass off the inferior right liver. There is adjacent fat stranding. The cyst also has a thin visible peripheral wall. This measures up to 5 cm in diameter. ?? Multiple bilateral renal cysts also present. No suspicious hepatic or renal mass lesions are identified. The spleen, pancreas, and adrenal glands appear negative. PELVIS: The appendix is not discretely visualized. No inflammatory changes are seen in the right lower quadrant and pericecal regions. Pelvic imaging shows no significant mass or inflammatory change. No free fluid is seen.. Procedure Note Jone Shelton MD - 01/09/2024 EXAM: CT ABDOMEN PELVIS W CONTRAST 01/09/2024 9:28 AM HISTORY: right sided abd pain COMPARISON: Remote chest CT 11/24/2008 TECHNIQUE: 100 mL of Omnipaque 350 were given intravenously. Portalvenous phase CT imaging of the abdomen and pelvis was performed. Multiplanar2-D CT reformats were generated on a separate workstation. Utilization of dose lowering techniques was performed to includeautomated exposure control, adjustment of the mA and/or kV according to patientsize, and use of the iterative reconstruction technique. FINDINGS: ABDOMEN: There are innumerable hepatic cysts in all segments of theliver. The cysts have increased in size and number compared to November 2008 the largest cyst is in the right liver and measures up to 15 cm in diameter. There is one exophytic cystic mass off the inferior right liver. Thereis adjacent fat stranding. The cyst also has a thin visible peripheralwall. This measures up to 5 cm in diameter. Multiple bilateral renal cystsalso present. No suspicious hepatic or renal mass lesions are identified. The spleen, pancreas, and adrenal glands appear negative. PELVIS: The appendix is not discretely visualized. No inflammatorychanges are seen in the right lower quadrant and pericecal regions. Pelvicimaging shows no significant mass or inflammatory change. No free fluid isseen.. IMPRESSION: Numerous hepatic cysts noted increased in size and number. Bilateral renal cysts also noted. There is a 5 cm exophytic cyst off the inferior right liver with mild surrounding inflammatory stranding and a visible peripheral wall, atypical for a simple cyst. This could indicate superimposed infected cyst or other pathology may explain the patient's pain. There Is also a dominant 15 cm simple cyst in the right liver. Electronically Signed by: Jone Shelton MD Signed on: 01/09/2024 10:06 AM Created on Workstation ID: [id number] Signed on Workstation ID: [id number] Sabine Jerry DO IMG CT PROCEDURES * (ABNORMAL) ISTAT8 VENOUS POINT OF CARE (01/09/2024 8:59 AM CDT) BUN - POINT OF CARE 17 6 - 20 mg/dL 01/09/2024 8:59 AM T [facility] SODIUM - POINT OF CARE 141 135 - 145 mmol/L 01/09/2024 8:59 AM [facility] POTASSIUM - POINT OF CARE 3.8 3.4 - 5.1 mmol/L 01/09/2024 8:59 AM [facility] CHLORIDE - POINT OF CARE 104 97 - 110 mmol/L 01/09/2024 8:59 AM [facility] TCO2 - POINT OF CARE 25(H) 19 - 24 mmol/L 01/09/2024 8:59 AM [facility] ANION GAP - POINT OF CARE 17 7 - 19 mmol/L 01/09/2024 8:59 AM [facility] HEMATOCRIT - POINT OF CARE 42.0 36.0 - 46.5 % 01/09/2024 8:59 AM [facility] HEMOGLOBIN - POINT OF CARE 14.3 12.0 - 15.5 g/dL 01/09/2024 8:59 AM [facility] GLUCOSE - POINT OF CARE 119(H) 70 - 99 mg/dL 01/09/2024 8:59 AM [facility] CALCIUM, IONIZED - POINT OF CARE 1.11(L) 1.15 - 1.29 mmol/L 01/09/2024 8:59 AM [facility] Creatinine 1.20(H) 0.51 - 0.95 mg/dL 01/09/2024 8:59 AM [facility] Glomerular Filtration Rate 54(L) >=60 01/09/2024 8:59 AM [facility] Comment:eGFR 30-59 mL/min/1. 73m2 = Moderate decrease in kidney function. Stage 3 CKD (chronic kidney disease) or moderate kidney disease. Estimated GFR calculated using the CKD-EPI-R (2020) equation that does not include race in the creatinine calculation. Blood VENOUS BLOOD SPECIMEN / Unknown 01/09/2024 8:59 AM CDT 01/09/2024 9:01 AM CDT Sabine Jerry DO BKR LAB PT [place] [address] * (ABNORMAL) Lipase (01/09/2024 8:46 AM CDT) Lipase 14(L) 15 - 77 Units/L 01/09/2024 9:16 AM CDT [facility] Blood VENOUS BLOOD SPECIMEN / Unknown Venipuncture / Unknown 01/09/2024 8:46 AM CDT 01/09/2024 8:52 AM CDT Sabine Jerry DO BKR LAB BLOOD ORDE RABLES Performing Organization Address City/[facility]/[place] [address] * CBC with Automated Differential (performable only) (01/09/2024 8:46 AM CDT) WBC 8.7 4.2 - 11.0 K/mcL 01/09/2024 8:56 AM CDT [facility] RBC 4.98 4.00 - 5.20 mil/mcL 01/09/2024 8:56 AM CDT [facility] HGB 14.0 12.0 - 15.5 g/dL 01/09/2024 8:56 AM CDT [facility] HCT 41.5 36.0 - 46.5 % 01/09/2024 8:56 AM CDT [facility] MCV 83.3 78.0 - 100.0 fl 01/09/2024 8:56 AM CDT [facility] MCH 28.1 26.0 - 34.0 pg 01/09/2024 8:56 AM [facility] MCHC 33.7 32.0 - 36.5 g/dL 01/09/2024 8:56 AM [facility] RDW-CV 14.8 11.0 - 15.0 % 01/09/2024 8:56 AM [facility] RDW-SD 44.8 39.0 - 50.0 fL 01/09/2024 8:56 AM [facility] PLT 203 140 - 450 K/mcL 01/09/2024 8:56 AM [facility] NRBC 0 <=0 /100 WBC 01/09/2024 8:56 AM [facility] Neutrophil, Percent 73 % 01/09/2024 8:56 AM [facility] Lymphocytes, Percent 19 % 01/09/2024 8:56 AM [facility] [place], Percent 5 % 01/09/2024 8:56 AM [facility] Eosinophils, Percent 2 % 01/09/2024 8:56 AM [facility] Basophils, Percent 0 % 01/09/2024 8:56 AM [facility] Immature Granulocytes 1 % 01/09/2024 8:56 AM [facility] Absolute Neutrophils 6.3 1.8 - 7.7 K/mcL 01/09/2024 8:56 AM [facility] Absolute Lymphocytes 1.7 1.0 - 4.0 K/mcL 01/09/2024 8:56 AM [facility] Absolute Monocytes 0.5 0.3 - 0.9 K/mcL 01/09/2024 8:56 AM [facility] Absolute Eosinophils 0.2 0.0 - 0.5 K/mcL 01/09/2024 8:56 AM [facility] Absolute Basophils 0.0 0.0 - 0.3 K/mcL 01/09/2024 8:56 AM [facility] Absolute Immature Granulocytes 0.1 0.0 - 0.2 K/mcL 01/09/2024 8:56 AM [facility] Blood VENOUS BLOOD SPECIMEN / Unknown Venipuncture / Unknown 01/09/2024 8:46 AM CDT 01/09/2024 8:52 AM CDT Narrative [facility] - 01/09/2024 8:56 AM CDT This is an appended report. ??These results have been appended to a previously verified report. Sabine Jerry DO BKR LAB BLOOD ORDE DAYO Performing Organization Address City/[facility]/[place] [address] * (ABNORMAL) C Reactive Protein (01/09/2024 8:46 AM CDT) Pathologist [facility] C-Reactive Protein 32.6(H) <10.0 mg/L 01/09/2024 9:16 AM CDT [facility] Blood VENOUS BLOOD SPECIMEN / Unknown Venipuncture / Unknown 01/09/2024 8:46 AM CDT 01/09/2024 8:52 AM CDT Sabine JOHNSONR LAB BLOOD ORDE DAYO Performing Organization Address City/[facility]/[place] [address] * (ABNORMAL) Comprehensive Metabolic Panel (01/09/2024 8:46 AM CDT) Fasting Status 01/09/2024 9:16 AM CDT [facility] Sodium 139 135 - 145 mmol/L 01/09/2024 9:16 AM CDT [facility] Potassium 3.7 3.4 - 5.1 mmol/L 01/09/2024 9:16 AM CDT [facility] Chloride 108 97 - 110 mmol/L 01/09/2024 9:16 AM CDT [facility] Carbon Dioxide 27 21 - 32 mmol/L 01/09/2024 9:16 AM CDT [facility] Anion Gap 8 7 - 19 mmol/L 01/09/2024 9:16 AM CDT [facility] Glucose 123(H) 70 - 99 mg/dL 01/09/2024 9:16 AM [facility] BUN 18 6 - 20 mg/dL 01/09/2024 9:16 AM [facility] Creatinine 1.11(H) 0.51 - 0.95 mg/dL 01/09/2024 9:16 AM [facility] Glomerular Filtration Rate 59(L) >=60 01/09/2024 9:16 AM [facility] Comment:eGFR 30-59 mL/min/1. 73m2 = Moderate decrease in kidney function. Stage 3 CKD (chronic kidney disease) or moderate kidney disease. Estimated GFR calculated using the CKD-EPI-R (2020) equation that does not include race in the creatinine calculation. BUN/Cr 16 7 - 25 01/09/2024 9:16 AM [facility] Calcium 9.3 8.4 - 10.2 mg/dL 01/09/2024 9:16 AM [facility] Bilirubin, Total 0.8 0.2 - 1.0 mg/dL 01/09/2024 9:16 AM [facility] GOT/AST 13 <=37 Units/L 01/09/2024 9:16 AM [facility] GPT/ALT 19 <64 Units/L 01/09/2024 9:16 AM [facility] Alkaline Phosphatase 140(H) 45 - 117 Units/L 01/09/2024 9:16 AM [facility] Albumin 3.4(L) 3.6 - 5.1 g/dL 01/09/2024 9:16 AM [facility] Protein, Total 7.4 6.4 - 8.2 g/dL 01/09/2024 9:16 AM [facility] Globulin 4.0 2.0 - 4.0 g/dL 01/09/2024 9:16 AM [facility] A/G Ratio 0.9(L) 1.0 - 2.4 01/09/2024 9:16 AM [facility] Blood VENOUS BLOOD SPECIMEN / Unknown Venipuncture / Unknown 01/09/2024 8:46 AM CDT 01/09/2024 8:52 AM CDT Sabine Jerry DO BKR LAB BLOOD ORDE DAYO [facility] [address] [place] [address] documented in this encounter Visit Diagnoses Diagnosis Abdominal pain, right upper quadrant- Primary Abdominal pain, right upper quadrant Hepatic cyst Other specified disorders of liver Polycystic kidney disease Polycystic kidney, unspecified type documented in this encounter Admitting Diagnoses Diagnosis Abdominal pain, right upper quadrant documented in this encounter Administered Medications Inactive Administered Medications - up to 1 most recent administrations Medication Order MAR Action Action Date Dose Rate Site acetaminophen (TYLENOL) tablet 1,000 mg 1,000 mg EVERY 6 HOURS SCHEDULED (4 times per day), Oral, First dose (after last modification) on Tue01/10/24 at 1215, Maximum of 4,000 mg acetaminophen per 24 hours from ALL sources. Given 01/10/2024 5:22 PM CDT 1,000 mg acetaminophen (TYLENOL) tablet 650 mg 650 mg EVERY 4 HOURS PRN, Oral, Mild Pain, Anticipated Mild Pain During Activity/Procedures, Starting on Tue01/09/24 at 1605, Maximum of 4,000 mg acetaminophen per 24 hours from ALL sources. Given 01/10/2024 6:08 AM CDT 650 mg bisacodyl (DULCOLAX) suppository 10 mg 10 mg DAILY PRN, Rectal, Constipation, Starting on Tue01/09/24 at 1605, Use if constipation refractory to polyethylene glycol (if ordered) and docusate/senna (if ordered), or patient is NPO (note: route not recommended in neutropenic patients). buPROPion (WELLBUTRIN SR) SR tablet 200 mg 200 mg EVERY MORNING, Oral, First dose on Tue01/09/24 at 1815 Given 01/11/2024 6:00 AM CDT 200 mg dextrose (GLUTOSE) 40 % gel 15 g 15 g PRN, Oral, Hypoglycemia, For blood glucose 40 - 70 mg/dL if patient is awake, responsive and able to take oral fluids, Starting on Tue01/09/24 at 1607, Repeat blood glucose every 15 minutes and treat until blood glucose is greater than 70mg/dL. dextrose (GLUTOSE) 40 % gel 30 g 30 g PRN, Oral, Hypoglycemia, For blood glucose less than 40 mg/dL if patient is awake, responsive and able to take oral fluids., Starting on Tue01/09/24 at 1607, Repeat blood glucose every 15 minutes and treat until blood glucose is greater than 70mg/dL. dextrose 50 % injection 12.5 g 12.5 g PRN, Intravenous, Hypoglycemia, For blood glucose 40-70 mg/dL (if patient obtunded, NPO, or unable to swallow), Starting on Tue01/09/24 at 1607, Each 50 mL = 25 g = 1 syringe. dextrose 50 % injection 25 g 25 g PRN, Intravenous, Hypoglycemia, For blood glucose less than 40 mg/dL (if patient obtunded, NPO, or unable to swallow), Starting on Tue01/09/24 at 1607, Each 50 mL = 25 g = 1 syringe. docusate sodium-sennosides (SENOKOT S) 50-8.6 MG 2 tablet 2 tablet 2 TIMES DAILY PRN, Oral, Constipation, Starting on Tue01/09/24 at 1605, Use if constipation refractory to polyethylene glycol (if ordered). fentaNYL (SUBLIMAZE) injection PRN, Starting on Tue01/09/24 at 1312, Intra-op Given 01/09/2024 1:38 PM CDT 50 mcg furosemide (LASIX) tablet 40 mg 40 mg EVERY MORNING, Oral, First dose on Tue01/10/24 at 0700 Given 01/11/2024 6:00 AM CDT 40 mg glucagon (GLUCAGEN) injection 1 mg 1 mg PRN, Intramuscular, Hypoglycemia, For blood glucose 70 mg/dL or less (if patient obtunded, NPO, or unable to swallow), Starting on Tue01/09/24 at 1607, Give if no IV access. HYDROmorphone (DILAUDID) injection 0.5 mg 0.5 mg ONCE, Intravenous, On Tue01/09/24 at 1506, For 1 dose, If an IV and an oral/RI medication are ordered PRN for the same pain severity, administer IV only if patient is NPO/if oral is not tolerated. Given 01/09/2024 3:09 PM CDT 0.5 mg HYDROmorphone (DILAUDID) injection 0.5 mg 0.5 mg EVERY 2 HOURS PRN, Intravenous, Severe Pain, Starting on Tue01/09/24 at 1932, If an IV and an oral/RI medication are ordered PRN for the same pain severity, administer IV only if patient is NPO/if oral is not tolerated. Given 01/09/2024 10:14 PM CDT 0.5 mg insulin lispro (ADMELOG,HumaLOG) - Correction Dose Subcutaneous, 3 TIMES DAILY WITH MEALS, First dose on Tue01/09/24 at 1700, >>>LOW Dose Correction Scale<<< If Patient is not eating or NPO, continue to GIVE Correction Dose according to scale below: Blood Sugar less than 150 mg/dL - Give 0 units of Correction Dose 150-199 mg/dL - GIVE 1 unit of Correction Dose 200-249 mg/dL - GIVE 2 units of Correction Dose 250-299 mg/dL - GIVE 3 units of Correction Dose 300-349 mg/dL - GIVE 4 units of Correction Dose 350 mg/dL or greater - GIVE 5 units of Correction Dose and Notify MD Given 01/11/2024 7:53 AM CDT 1 Units Arm, Left iohexol (OMNIPAQUE 350 INJECT) contrast solution 100 mL 100 mL ONCE, Intravenous, On Tue01/09/24 at 0930, For 1 dose, * Note: Refrigerated product must be brought to room temp prior to administration * Given 01/09/2024 9:29 AM CDT 100 mLs ipratropium-albuterol (DUONEB) 0.5-2.5 (3) MG/3ML nebulizer solution 3 mL 3 mL EVERY 4 HOURS RESPIRATORY PRN, Nebulization, Shortness of Breath, Wheezing, Starting on Tue01/10/24 at 1431, Each 3 mL provides albuterol base 2.5 mg & ipratropium 0.5 mg. ketorolac (TORADOL) injection 15 mg 15 mg ONCE, Intramuscular, On Tue01/09/24 at 0820, For 1 dose, Do not administer with other NSAIDs. If IV, give over at least 15 seconds. Ketorolac therapy has a 5 day stop date - no renewals allowed. If an IV and an oral/RI medication are ordered PRN for the same pain severity, administer IV only if patient is NPO/if oral is not tolerated. * Protect from light * Given 01/09/2024 8:47 AM CDT 15 mg Other ketorolac (TORADOL) injection 15 mg 15 mg EVERY 6 HOURS PRN, Intravenous, Mild Pain, Starting on Tue01/10/24 at 1001, For 5 days, Do not administer with other NSAIDs. If IV, give over at least 15 seconds. Ketorolac therapy has a 5 day stop date - no renewals allowed. If an IV and an oral/RI medication are ordered PRN for the same pain severity, administer IV only if patient is NPO/if oral is not tolerated. * Protect from light * Given 01/11/2024 1:00 AM CDT 15 mg lamoTRIgine (LaMICtal) tablet 50 mg 50 mg 2 TIMES DAILY, Oral, First dose on Tue01/09/24 at 2100 Given 01/11/2024 8:11 AM CDT 50 mg lidocaine 1 % injection PRN, Starting on Tue01/09/24 at 1321, Intra-op Given 01/09/2024 1:21 PM CDT 15 mLs Abdomen, RUQ magnesium hydroxide (MILK OF MAGNESIA) 400 MG/5ML suspension 30 mL 30 mL DAILY PRN, Oral, Constipation, Starting on Tue01/09/24 at 1605, Use if constipation refractory to polyethylene glycol (if ordered), docusate/senna (if ordered), and bisacodyl (if ordered) or patient unable to tolerate oral tablets. Do not exceed 4,800 mg in 24 hours. Shake well before administering. Magnesium Standard Replacement Protocol Administer magnesium per [facility] approved protocol. melatonin tablet 3 mg 3 mg NIGHTLY PRN, Oral, Insomnia, Starting on Tue01/09/24 at 1605 MIDazolam (VERSED) injection PRN, Starting on Tue01/09/24 at 1359, Intra-op Given 01/09/2024 1:59 PM CDT 1 mg montelukast (SINGULAIR) tablet 10 mg 10 mg DAILY, Oral, First dose on Tue01/09/24 at 1815 Given 01/11/2024 8:11 AM CDT 10 mg morphine injection 2 mg 2 mg EVERY 3 HOURS PRN, Intravenous, Moderate Pain, Severe Pain, Starting on Tue01/09/24 at 1606, If an IV and an oral/RI medication are ordered PRN for the same pain severity, administer IV only if patient is NPO/if oral is not tolerated. Given 01/09/2024 5:09 PM CDT 2 mg ondansetron (ZOFRAN) injection 4 mg 4 mg EVERY 8 HOURS PRN, Intravenous, Administer over 5 Minutes, Nausea, Vomiting, Starting on Tue01/09/24 at 2050, Unless otherwise stated, follow the P&T approved PRN antiemetic sequence: 1. ondansetron 2. prochlorperazine 3. metoCLOPramide. If an IV and an oral medication are ordered PRN, administer IV only if patient is NPO/if oral is not tolerated. If IV, give undiluted over 2-5 minutes. Given 01/10/2024 4:19 PM CDT 4 mg ondansetron (ZOFRAN) injection PRN, Administer over 5 Minutes, Starting on Tue01/09/24 at 1351, Intra-op Given 01/09/2024 1:51 PM CDT 4 mg oxyCODONE (IMM REL) (ROXICODONE) tablet 5 mg 5 mg EVERY 4 HOURS PRN, Oral, Severe Pain, Starting on Tue01/09/24 at 1606, IMMEDIATE RELEASE Given 01/10/2024 3:26 AM CDT 5 mg Phosphorus Standard Replacement Protocol Administer phosphorus per [facility] approved protocol. polyethylene glycol (MIRALAX) packet 17 g 17 g DAILY PRN, Oral, Constipation, Starting on Tue01/09/24 at 1605, 1 packet = 17 grams. For each 17 gram dose: Dissolve contents of packet in 8 oz. of water. IF PATIENT IS ON THICKENED LIQUIDS: Vigorously stir contents of each packet into 4 oz. prethickened water. Have patient drink dose within 30 minutes of preparation. Unless otherwise stated, follow the P&T approved PRN cathartic sequence: 1. polyethylene glycol 2. docusate/senna 3. bisacodyl suppository 4. magnesium hydroxide (Milk of Magnesia) concentrate. polyethylene glycol (MIRALAX) packet 17 g 17 g DAILY, Oral, First dose on Tue01/09/24 at 1807, 1 packet = 17 grams. For each 17 gram dose: Dissolve contents of packet in 8 oz. of water. IF PATIENT IS ON THICKENED LIQUIDS: Vigorously stir contents of each packet into 4 oz. prethickened water. Have patient drink dose within 30 minutes of preparation. Unless otherwise stated, follow the P&T approved PRN cathartic sequence: 1. polyethylene glycol 2. docusate/senna 3. bisacodyl suppository 4. magnesium hydroxide (Milk of Magnesia) concentrate. potassium CHLORIDE (KLOR-CON M) roxanne ER tablet 40 mEq 40 mEq ONCE, Oral, On Tue01/09/24 at 1915, For 1 dose, Ordered placed per 3.6 - 4 mEq/L Potassium Replacement BPA. Given 01/09/2024 9:04 PM CDT 40 mEq Potassium Replacement (Levels 3.6 - 4) Administer a total of 40 mEq potassium chloride for EACH potassium result of 3.6 - 4 mEq/L. Potassium Standard Replacement Protocol (Levels 3.5 and lower) Administer potassium per [facility] approved protocol for levels of 3.5 mEq/L and lower. prochlorperazine (COMPAZINE) injection 10 mg 10 mg EVERY 6 HOURS PRN, Intravenous, Nausea, Vomiting, Starting on Tue01/09/24 at 2050, Give over at least 2 min. IV rate not to exceed 5 mg/min. Unless otherwise stated, follow the P&T approved PRN antiemetic sequence: 1. ondansetron 2. prochlorperazine 3. metoCLOPramide. If an IV and an oral medication are ordered PRN, administer IV only if patient is NPO/if oral is not tolerated. Given 01/10/2024 10:11 AM CDT 10 mg QUEtiapine (SEROquel) tablet 150 mg 150 mg EVERY 12 HOURS SCHEDULED (2 times per day), Oral, First dose on Tue01/09/24 at 2100 Given 01/10/2024 9:12 PM CDT 150 mg sodium chloride 0.9 % flush bag 25 mL 25 mL PRN, Intravenous, Flush, Starting on Tue01/09/24 at 1604, To flush tubing following intermittent infusions. sodium chloride 0.9 % injection 2 mL 2 mL EVERY 12 HOURS SCHEDULED (2 times per day), Intracatheter, First dose on Tue01/09/24 at 2100 Given 01/11/2024 8:11 AM CDT 2 mLs sodium chloride 0.9 % injector flush 100 mL 100 mL PRN, Injection, Flush, Starting on Tue01/09/24 at 0929 Given 01/09/2024 9:29 AM CDT 100 mLs documented in this encounter Historical Medications * This list may reflect changes made after this encounter. Medication Sig Dispensed Refills Start Date End Date QUEtiapine (SEROquel XR) 300 MG 24 hr tablet Take 300 mg by mouth at bedtime. 12/22/2023 montelukast (SINGULAIR) 10 MG tablet Take 10 mg by mouth daily. 10/30/2023 metFORMIN (GLUCOPHAGE-XR) 500 MG 24 hr tablet Take 500 mg by mouth daily. 01/08/2024 lamoTRIgine (LaMICtal) 25 MG tablet Take 50 mg by mouth in the morning and 50 mg in the evening. 12/18/2023 hydrOXYzine (ATARAX) 50 MG tablet Take 50 mg by mouth at bedtime. 12/20/2023 hydrOXYzine (ATARAX) 10 MG tablet Take 10 mg by mouth 3 times daily as needed. 12/20/2023 furosemide (LASIX) 40 MG tablet Take 40 mg by mouth every morning. 10/31/2023 buPROPion (WELLBUTRIN SR) 200 MG 12 hr tablet Take 200 mg by mouth every morning. 12/19/2023 added in this encounter Active and Recently Administered Medications Times are shown in CDT. Scheduled Medication Order 01/09/2024 01/10/2024 01/11/2024 acetaminophen (TYLENOL) tablet 1,000 mg(Linked Group 1) 1,000 mg EVERY 6 HOURS SCHEDULED (4 times per day), Oral, First dose (after last modification) on Tue01/10/24 at 1215, Maximum of 4,000 mg acetaminophen per 24 hours from ALL sources. 1147 (Given - Provider: Kassandra Tabares RN)1722 (Given - Provider: Kassandra Tabares RN) 0020 (Not Given - Provider: Evangelina Pena RN - Reason: Patient sleeping - Comment: patient wishing to not be woken up while sleeping tonight. will continue with next dose)0554 (Not Given - Provider: Evangelina Pena RN - Reason: Patient/family refused - Comment: no longer wants. pain is tolerable) buPROPion (WELLBUTRIN SR) SR tablet 200 mg 200 mg EVERY MORNING, Oral, First dose on Tue01/09/24 at 1815 1717 (Not Given - Provider: Lili Cabello RN - Reason: Patient/family refused) 0608 (Given - Provider: Christi Mcallister RN) 0600 (Given - Provider: Evangelina Pena, MÓNICA) furosemide (LASIX) tablet 40 mg 40 mg EVERY MORNING, Oral, First dose on Tue01/10/24 at 0700 1718 (Not Given - Provider: Lili Cabello RN - Reason: Patient/family refused) 0608 (Given - Provider: Christi Mcallister RN) 0600 (Given - Provider: Evangelina Pena, MÓNICA) HYDROmorphone (DILAUDID) injection 0.5 mg (COMPLETED) 0.5 mg ONCE, Intravenous, On Tue01/09/24 at 1506, For 1 dose, If an IV and an oral/RI medication are ordered PRN for the same pain severity, administer IV only if patient is NPO/if oral is not tolerated. 1509 (Given - Provider: Milly Murillo RN) insulin lispro (ADMELOG,HumaLOG) - Correction Dose Subcutaneous, 3 TIMES DAILY WITH MEALS, First dose on Tue01/09/24 at 1700, >>>LOW Dose Correction Scale<<< If Patient is not eating or NPO, continue to GIVE Correction Dose according to scale below: Blood Sugar less than 150 mg/dL - Give 0 units of Correction Dose 150-199 mg/dL - GIVE 1 unit of Correction Dose 200-249 mg/dL - GIVE 2 units of Correction Dose 250-299 mg/dL - GIVE 3 units of Correction Dose 300-349 mg/dL - GIVE 4 units of Correction Dose 350 mg/dL or greater - GIVE 5 units of Correction Dose and Notify MD 1718 (Not Given - Provider: Lili Cabello RN - Reason: Patient/family refused) 0701 (Not Given - Provider: Kassandra Tabares RN - Reason: Order parameters not met)1148 (Not Given - Provider: Kassandra Tabares RN - Reason: Order parameters not met)1621 (Not Given - Provider: Kassandra Tabares RN - Reason: Order parameters not met) 0753 (Given - Provider: Leanne Dahl LPN - Comment: BG [id number]) iohexol (OMNIPAQUE 350 INJECT) contrast solution 100 mL (COMPLETED) 100 mL ONCE, Intravenous, On Tue01/09/24 at 0930, For 1 dose, * Note: Refrigerated product must be brought to room temp prior to administration * 0929 (Given - Provider: Tammie Rubin) ketorolac (TORADOL) injection 15 mg (COMPLETED) 15 mg ONCE, Intramuscular, On Tue01/09/24 at 0820, For 1 dose, Do not administer with other NSAIDs. If IV, give over at least 15 seconds. Ketorolac therapy has a 5 day stop date - no renewals allowed. If an IV and an oral/RI medication are ordered PRN for the same pain severity, administer IV only if patient is NPO/if oral is not tolerated. * Protect from light * 0847 (Given - Provider: Clarisse Campoverde RN - Comment: Given IV) lamoTRIgine (LaMICtal) tablet 50 mg 50 mg 2 TIMES DAILY, Oral, First dose on Tue01/09/24 at 2100 2101 (Given - Provider: Christi Mcallister RN) 0824 (Given - Provider: Kassandra Tabares, MÓNICA)2112 (Given - Provider: Evangelina Pena, MÓNICA) 0811 (Given - Provider: Darcie Cronin, MÓNICA) Magnesium Standard Replacement Protocol Administer magnesium per [facility] approved protocol. montelukast (SINGULAIR) tablet 10 mg 10 mg DAILY, Oral, First dose on Tue01/09/24 at 1815 1717 (Not Given - Provider: Lili Cabello RN - Reason: Patient/family refused) 0824 (Given - Provider: Kassandra Tabares RN) 0811 (Given - Provider: Darcie Cronin, MÓNICA) Phosphorus Standard Replacement Protocol Administer phosphorus per [facility] approved protocol. polyethylene glycol (MIRALAX) packet 17 g 17 g DAILY, Oral, First dose on Tue01/09/24 at 1807, 1 packet = 17 grams. For each 17 gram dose: Dissolve contents of packet in 8 oz. of water. IF PATIENT IS ON THICKENED LIQUIDS: Vigorously stir contents of each packet into 4 oz. prethickened water. Have patient drink dose within 30 minutes of preparation. Unless otherwise stated, follow the P&T approved PRN cathartic sequence: 1. polyethylene glycol 2. docusate/senna 3. bisacodyl suppository 4. magnesium hydroxide (Milk of Magnesia) concentrate. 171 (Not Given - Provider: Lili Cabello RN - Reason: Patient/family refused) 075 (Not Given - Provider: Kassandra Tabares RN - Reason: Patient/family refused) 0833 (Not Given - Provider: Darcie Cronin RN - Reason: Patient/family refused) potassium CHLORIDE (KLOR-CON M) roxanne ER tablet 40 mEq (COMPLETED) 40 mEq ONCE, Oral, On Tue01/09/24 at 1915, For 1 dose, Ordered placed per 3.6 - 4 mEq/L Potassium Replacement BPA. 2103 (Given - Provider: Christi Mcallister RN) Potassium Replacement (Levels 3.6 - 4) Administer a total of 40 mEq potassium chloride for EACH potassium result of 3.6 - 4 mEq/L. Potassium Standard Replacement Protocol (Levels 3.5 and lower) Administer potassium per [facility] approved protocol for levels of 3.5 mEq/L and lower. QUEtiapine (SEROquel) tablet 150 mg 150 mg EVERY 12 HOURS SCHEDULED (2 times per day), Oral, First dose on Tue01/09/24 at 2100 2100 (Given - Provider: Christi Mcallister RN) 08 (Not Given - Provider: Kassandra Tabares RN - Reason: Patient/family refused)2111 (Given - Provider: Evangelina Pena, MÓNICA) 08 (Not Given - Provider: Darcie Cronin RN - Reason: Patient/family refused) sodium chloride 0.9 % injection 2 mL 2 mL EVERY 12 HOURS SCHEDULED (2 times per day), Intracatheter, First dose on Tue01/09/24 at 2100 2121 (Given - Provider: Christi Mcallister RN) 075 (Given - Provider: Kassandra Tabares RN)2111 (Given - Provider: Evangelina Pena, MÓNICA) 08 (Given - Provider: Darcie Cronin RN) PRN Medication Order 01/09/2024 01/10/2024 01/11/2024 acetaminophen (TYLENOL) tablet 650 mg (CANCELED) 650 mg EVERY 4 HOURS PRN, Oral, Mild Pain, Anticipated Mild Pain During Activity/Procedures, Starting on Tue01/09/24 at 1605, Maximum of 4,000 mg acetaminophen per 24 hours from ALL sources. 0608 (Given - Provider: Christi Mcallister RN) bisacodyl (DULCOLAX) suppository 10 mg 10 mg DAILY PRN, Rectal, Constipation, Starting on Tue01/09/24 at 1605, Use if constipation refractory to polyethylene glycol (if ordered) and docusate/senna (if ordered), or patient is NPO (note: route not recommended in neutropenic patients). dextrose (GLUTOSE) 40 % gel 15 g 15 g PRN, Oral, Hypoglycemia, For blood glucose 40 - 70 mg/dL if patient is awake, responsive and able to take oral fluids, Starting on Tue01/09/24 at 1607, Repeat blood glucose every 15 minutes and treat until blood glucose is greater than 70mg/dL. dextrose (GLUTOSE) 40 % gel 30 g 30 g PRN, Oral, Hypoglycemia, For blood glucose less than 40 mg/dL if patient is awake, responsive and able to take oral fluids., Starting on Tue01/09/24 at 1607, Repeat blood glucose every 15 minutes and treat until blood glucose is greater than 70mg/dL. dextrose 50 % injection 12.5 g 12.5 g PRN, Intravenous, Hypoglycemia, For blood glucose 40-70 mg/dL (if patient obtunded, NPO, or unable to swallow), Starting on Tue01/09/24 at 1607, Each 50 mL = 25 g = 1 syringe. dextrose 50 % injection 25 g 25 g PRN, Intravenous, Hypoglycemia, For blood glucose less than 40 mg/dL (if patient obtunded, NPO, or unable to swallow), Starting on Tue01/09/24 at 1607, Each 50 mL = 25 g = 1 syringe. docusate sodium-sennosides (SENOKOT S) 50-8.6 MG 2 tablet 2 tablet 2 TIMES DAILY PRN, Oral, Constipation, Starting on Tue01/09/24 at 1605, Use if constipation refractory to polyethylene glycol (if ordered). fentaNYL (SUBLIMAZE) injection (COMPLETED) PRN, Starting on Tue01/09/24 at 1312, Intra-op 1312 (Given - Provider: Milly Murillo RN)1317 (Given - Provider: Milly Murillo RN)1321 (Given - Provider: Milly Murillo RN)1332 (Given - Provider: Milly Murillo RN)1338 (Given - Provider: Milly Murillo RN) glucagon (GLUCAGEN) injection 1 mg 1 mg PRN, Intramuscular, Hypoglycemia, For blood glucose 70 mg/dL or less (if patient obtunded, NPO, or unable to swallow), Starting on Tue01/09/24 at 1607, Give if no IV access. HYDROmorphone (DILAUDID) injection 0.5 mg 0.5 mg EVERY 2 HOURS PRN, Intravenous, Severe Pain, Starting on Tue01/09/24 at 1932, If an IV and an oral/RI medication are ordered PRN for the same pain severity, administer IV only if patient is NPO/if oral is not tolerated. 1956 (Given - Provider: Christi Mcallister RN)2213 (Given - Provider: Christi Mcallister RN) hydrOXYzine (ATARAX) tablet 10 mg 10 mg 3 TIMES DAILY PRN, Oral, Anxiety, Itching, Starting on Tue01/09/24 at 1659 ipratropium-albuterol (DUONEB) 0.5-2.5 (3) MG/3ML nebulizer solution 3 mL 3 mL EVERY 4 HOURS RESPIRATORY PRN, Nebulization, Shortness of Breath, Wheezing, Starting on Tue01/10/24 at 1431, Each 3 mL provides albuterol base 2.5 mg & ipratropium 0.5 mg. ketorolac (TORADOL) injection 15 mg 15 mg EVERY 6 HOURS PRN, Intravenous, Mild Pain, Starting on Tue01/10/24 at 1001, For 5 days, Do not administer with other NSAIDs. If IV, give over at least 15 seconds. Ketorolac therapy has a 5 day stop date - no renewals allowed. If an IV and an oral/RI medication are ordered PRN for the same pain severity, administer IV only if patient is NPO/if oral is not tolerated. * Protect from light * 1007 (Given - Provider: Kassandra Tabares RN)1617 (Given - Provider: Kassandra Tabares RN) 0100 (Given - Provider: Evangelina Pena RN - Comment: patient requesting toradol instead of scheduled tylenol) lidocaine 1 % injection (COMPLETED) PRN, Starting on Tue01/09/24 at 1321, Intra-op 1321 (Given - Provider: Castillo Llanos MD) magnesium hydroxide (MILK OF MAGNESIA) 400 MG/5ML suspension 30 mL 30 mL DAILY PRN, Oral, Constipation, Starting on Tue01/09/24 at 1605, Use if constipation refractory to polyethylene glycol (if ordered), docusate/senna (if ordered), and bisacodyl (if ordered) or patient unable to tolerate oral tablets. Do not exceed 4,800 mg in 24 hours. Shake well before administering. melatonin tablet 3 mg 3 mg NIGHTLY PRN, Oral, Insomnia, Starting on Tue01/09/24 at 1605 MIDazolam (VERSED) injection (COMPLETED) PRN, Starting on Tue01/09/24 at 1359, Intra-op 1359 (Given - Provider: Milly Murillo RN) morphine injection 2 mg (CANCELED) 2 mg EVERY 3 HOURS PRN, Intravenous, Moderate Pain, Severe Pain, Starting on Tue01/09/24 at 1606, If an IV and an oral/RI medication are ordered PRN for the same pain severity, administer IV only if patient is NPO/if oral is not tolerated. 1709 (Given - Provider: Lili Cabello RN) ondansetron (ZOFRAN) injection 4 mg 4 mg EVERY 8 HOURS PRN, Intravenous, Administer over 5 Minutes, Nausea, Vomiting, Starting on Tue01/09/24 at 2050, Unless otherwise stated, follow the P&T approved PRN antiemetic sequence: 1. ondansetron 2. prochlorperazine 3. metoCLOPramide. If an IV and an oral medication are ordered PRN, administer IV only if patient is NPO/if oral is not tolerated. If IV, give undiluted over 2-5 minutes. 0753 (Given - Provider: Kassandra Tabares RN)1619 (Given - Provider: Kassandra Tabares RN) ondansetron (ZOFRAN) injection (COMPLETED) PRN, Administer over 5 Minutes, Starting on Tue01/09/24 at 1351, Intra-op 1351 (Given - Provider: Milly Murillo RN) oxyCODONE (IMM REL) (ROXICODONE) tablet 5 mg 5 mg EVERY 4 HOURS PRN, Oral, Severe Pain, Starting on Tue01/09/24 at 1606, IMMEDIATE RELEASE 1922 (Given - Provider: Christi Mcallister RN)2327 (Given - Provider: Christi Mcallister RN) 0326 (Given - Provider: Christi Mcallister RN) polyethylene glycol (MIRALAX) packet 17 g 17 g DAILY PRN, Oral, Constipation, Starting on Tue01/09/24 at 1605, 1 packet = 17 grams. For each 17 gram dose: Dissolve contents of packet in 8 oz. of water. IF PATIENT IS ON THICKENED LIQUIDS: Vigorously stir contents of each packet into 4 oz. prethickened water. Have patient drink dose within 30 minutes of preparation. Unless otherwise stated, follow the P&T approved PRN cathartic sequence: 1. polyethylene glycol 2. docusate/senna 3. bisacodyl suppository 4. magnesium hydroxide (Milk of Magnesia) concentrate. prochlorperazine (COMPAZINE) injection 10 mg 10 mg EVERY 6 HOURS PRN, Intravenous, Nausea, Vomiting, Starting on Tue01/09/24 at 2050, Give over at least 2 min. IV rate not to exceed 5 mg/min. Unless otherwise stated, follow the P&T approved PRN antiemetic sequence: 1. ondansetron 2. prochlorperazine 3. metoCLOPramide. If an IV and an oral medication are ordered PRN, administer IV only if patient is NPO/if oral is not tolerated. 2057 (Given - Provider: Christi Mcallister RN) 1011 (Given - Provider: Kassandra Tabares RN) sodium chloride 0.9 % flush bag 25 mL 25 mL PRN, Intravenous, Flush, Starting on Tue01/09/24 at 1604, To flush tubing following intermittent infusions. sodium chloride 0.9 % injector flush 100 mL 100 mL PRN, Injection, Flush, Starting on Tue01/09/24 at 0929 0929 (Given - Provider: Tammie Rubin) Linked Groups Order Group 1: acetaminophen (TYLENOL) tablet 1,000 mgJump to med 1,000 mg EVERY 6 HOURS SCHEDULED (4 times per day), Oral, First dose (after last modification) on Tue01/10/24 at 1215, Maximum of 4,000 mg acetaminophen per 24 hours from ALL sources. documented in this encounter Orders Medications Ordered That Ariel ht Not Have Been Administered Count Last Ordered Date First Ordered Date ipratropium-albuterol (DUONE B) 0.5-2.5 (3) MG/3ML nebulizer solution 3 mL 1 01/10/2024 acetaminophen (TYLENOL) suppository 650 mg 1 01/09/2024 bisacodyl (DULCOLAX) suppository 10 mg 1 dextrose (GLUTOSE) 40 % gel 15 g 1 01/09/20 dextrose (GLUTOSE) 40 % gel 30 g 1 01/09/20 dextrose 50 % injection 12.5 g 1 01/09/2024 dextrose 50 % injection 25 g 1 01/09/2024 docusate sodium-sennosides ( SENOKOT S) 50-8.6 MG 2 tablet 1 01/09/2024 glucagon (GLUCAGEN) injection 1 mg 1 2023 hydrOXYzine (ATARAX) tablet 10 mg 1 024 magnesium hydroxide (MILK OF MAGNESIA) 400 MG/5ML suspension 30 mL 1 01/09/2024 Magnesium Standard Replacement Protocol 1 0 01/09/2024 melatonin tablet 3 mg 1 01/09/2024 Phosphorus Standard Replacement Protocol 1 01/09/2024 polyethylene glycol (MIRALAX) packet 17 g 2 01/09/2024 Potassium Replacement (Levels 3.6 - 4) 1 Potassium Standard Replaceme nt Protocol (Levels 3.5 and lower) 1 01/09/2024 sodium chloride 0.9 % flush bag 25 mL 1 Lab Orders Without Results Count Last Ordered D ate First Ordered Date POCT METERED BLOOD GLUCOSE 7 01/10/2024 0 01/09/2024 POCT CREATININE 1 01/09/2024 Admission Count Last Ordered Date First Orde red Date ASSIGN TO OBSERVATION 1 01/09/2024 Discharge Count Last Ordered Date First Orde red Date DISCHARGE PATIENT 1 01/11/2024 documented in this encounter Care Teams Builder'S Labourer Relationship Specialty Start Date End Date Marleni Jung [address] [phone] PCP - General Family Practice 01/09/24 documented as of this encounter
--- OUTSIDE RECORDS SUMMARY | 2024-07-17 03:07 | XMS_ITS ---
Author Organization [facility] [employer] [facility] Address [address] [address] Care Team Providers Care Ward Nurse Name Role Phone Marleni Jung MD Primary Care Provider Terrie vailable Lucie Amaya Unavailable [phone] REASON FOR VISIT RE:Refill Request Social History Sex Assigned At : Social History Observation Description Sex Assigned At Female Encounters Encounter Location Date Provider Diagnosis [facility] [id number] [address] 05/18/2024 Lucie Amaya Plan Of Treatment Next Appt Details Provider Name:Lucie Amaya , 07/30/2024 09:45:00 AM, [address], [facility] [address], [place], [address], Progress Notes * GEOFFREY OSMANOB: [birth year] (54 yo F)Acc No.[id number]:05/18/2024 Patient:?JEIMY OSMANIE :1970???Age:54 Y???Sex:Female Address:[address], [place], [address] * true * Date:? Generated for Johni felix/Elsie/eTransmitting on:?07/17/2024 03:07 AM CATALOGING ASSISTANT
--- OUTSIDE RECORDS SUMMARY | 2024-07-17 03:07 | XMS_ITS | Clinical Summary ---
Author Organization [facility] Address [address] [place] [address] Care Team Providers Care Conveyor System Dispatcher Name Role Phone Marleni Jung MD Primary Care Provider + Source Comments [facility],non-owned Affiliates and Associated Physician Practices is amultiple site organization consisting of ambulatory clinics and hospital sitesin [place], [place], [place] and [place]. This disclosure is being madepursuant to the Care Everywhere program and may not contain all information available regarding this patient. Last updated 18.[facility] Social History Tobacco Use Types Packs/Day Years Used Date Smoking Tobacco: Never Assessed Sex and Gender Information Value Date Recorded Sex Assigned at Not on file Gender Identity Not on file Sexual Orientation Not on file Plan of Treatment Upcoming Encounters Date Type Department Care Team (Late st Contact Info) Description 09/27/2024 11:30 AM CDT Office Visit [facility] [address] [place] [address], [facility] [place] [address] [place] [address] [place] [phone] Health Maintenance Due Date Last Done Comments COLOGUARD (AGES 45-75) - COL ON CA SCREENING 1970 COLON MONITORING 1969 COLONOSCOPY - COLON CA SCREENING 1969 CT COLONOGRAPHY - COLON CA SCREENING 1969 Colorectal Cancer Screening 1970 FIT - COLON CA SCREENING 1969 FLEX SIG - COLON CA SCREENING 1969 LIPID TESTING 1970 MAMMOGRAM 1970 PAP SMEAR 1969 HIV SCREENING 1984 HEPATITIS C SCREENING 05/06/1987 DTAP/TDAP/TD VACCINES (1 - Tdap) 1988 HEPATITIS B VACCINE (1 of 3 - 19+ 3-dose series) 1988 ZOSTER VACCINE (1 of 2) 2019 DEPRESSION SCREENING 07/18/2023 COVID-19 VACCINE (1 - 2023-2 5 season) 2024 INFLUENZA VACCINE (#1) 2024 05/24/2008 HIB VACCINE Aged Out No longer eligi ble based on patient's age to complete this topic HPV VACCINE Aged Out No longer eligi ble based on patient's age to complete this topic MENINGOCOCCAL VACCINE Aged Out No binta estefany eligible based on patient's age to complete this topic PNEUMOCOCCAL VACCINE Aged Out No long er eligible based on patient's age to complete this topic Care Teams Conveyor System Dispatcher Relationship Specialty Start Date End Date Marleni Jung MD [address] [place] [address] PCP - General Family Medicine 03/03/24
--- OUTSIDE RECORDS SUMMARY | 2024-07-17 03:07 | XMS_ITS ---
Author Organization [facility] Address [address] [facility] [address] [facility] [address] [place] [address] Care Team Providers Care Wedding Planning Internship Name Role Phone Marleni Jung MD Primary Care Provider Terrie willianilaLucie Gagnon Unavailable [phone] REASON FOR VISIT RE:Refill Request Medications Medication SIG (Take, Route, Fr equency, Duration) Notes Start Date End Date Status lamoTRIgine 25 MG 2 tablets in am and bedtime Oral once a day for 30 days Active Social History Sex Assigned At : Social History Observation Description Sex Assigned At Female Encounters Encounter Location Date Provider Diagnosis [facility] [employer] [place] [id number] [facility] [address] [facility] [address] [place] [address] 05/18/2024 Lucie Amaya Bipolar disorder, current episode depressed, mild F31.31 Assessments Encounter Date Diagnosis (ICD Code) Assessment Notes Treatment Notes Treatment Clinical Notes Section Notes 05/18/2024 Bipolar disorder, current episode depressed, mild (ICD-10 - F31.31) pateint reported Lamotrigine 50 mg twice a day Plan Of Treatment Medication Medication Name Sig Start Date Stop Date Notes lamoTRIgine 25 MG 2 tablets in am and bedtime Oral once a day for 30 days Next Appt Details Provider Name:Lucie Amaya , 07/30/2024 09:45:00 AM, [address], [address], [place], [address], Progress Notes * GEOFFREY OSMANOB: [birth year] (54 yo F)Acc No.[id number]:05/18/2024 Patient:?MAKENNA OSMAN :1970???Age:54 Y???Sex:Female Address:[address], [place], [address] * Refills? Refill lamoTRIgine Tablet, 25 MG, Oral, 120 Tablet, 2 tablets in am and bedtime, once a day, 30 days, Refills=2 Subjective: * Chief Complaints: * ???RE:Refill Request * Medical History:? * Surgical History:? * Hospitalization/Major Diagno stic Procedure:? * Medications:? Objective: * Vitals:? * Physical Examination:? Assessment: * Assessment: 1.?Bipolar disorder, current episode depressed, mild - F31.31??? pateint reported Lamotrigine 50 mg twice a day Plan: * Treatment: * Procedure Codes:? * true * Date:? 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
--- OUTSIDE RECORDS SUMMARY | 2024-07-17 03:07 | XMS_ITS | Encounter Summary ---
Author Organization [facility] Address [address] [place] [address] Care Team Providers Care Webmethods Consultant Name Role Phone Marleni Jung Primary Care Provider [phone] Encounter Details Date Type Department Care Team (Latest Contact Info) Description 01/13/2024 Travel Social History Tobacco Use Types Packs/Day Years Used Date Smoking Tobacco: Never Passive Smoke Exposure: Past Smokeless Tobacco: Never Alcohol Use Standard Drinks/Week Comments Yes 0 (1 standard drink = 0.6 oz pur e alcohol) Utilities Answer Date Recorded In the past 12 months has [employer] electric, gas, oil, or water company threatened to shut off services in your home? No 01/09/2024 PHQ-2 Answer Date Recorded Initial depression screening score: 0 01/09/2024 Social Connections Answer Date Recorded How often do you see or talk to people that you care about and feel close to? (For example: talking to friends on the phone, visiting friends or family, going to baptist or club meetings) 5 or more times [...] on filedocumented in this encounter Care Teams Webmethods Consultant Relationship Specialty Start Date End Date Marleni Jung [address] [address] PCP - General Family Practice 01/09/24 documented as of this encounter
--- OUTSIDE RECORDS SUMMARY | 2024-07-17 03:07 | XMS_ITS | Referral Summary ---
Author Organization [facility] Address [address] [place] [address] Care Team Providers Care Hand Buffer Name Role Phone Marleni Jung Primary Care Provider [phone] Allergies Active Allergy Reactions Criticality Noted Date [...] Date Abdominal pain, right upper quadrant 01/09/2024 Social History Tobacco Use Types Packs/Day Years Used Date Smoking Tobacco: Never Passive Smoke Exposure: Past Smokeless Tobacco: Never Tobacco Cessation:Counseling Given: Not Answered Alcohol Use Standard Drinks/Week Comments Yes 0 (1 standard drink = 0.6 oz pur e alcohol) Utilities Answer Date Recorded In the past 12 months has e [employer], gas, oil, or water [employer] threatened to shut off services in your home? No 01/09/2024 PHQ-2 Answer Date Recorded Initial depression screening score: 0 01/09/2024 Social Connections Answer Date Recorded How often do you see or talk to people that you care about and feel close to? (For example: talking to friends on the phone, visiting friends or family, going to restorationist or club meetings) 5 or more times [...] file Not on file Not on file Last Filed Vital Signs Vital Sign Reading [...] Mass Index 37.67 01/13/2024 6:49 AM CDT Functional Status Functional Status Response Date of [...] concentrating, remembering or making decisions? No 01/09/2024 Plan of Treatment Not on file Procedures Procedure Name Priority Date/Time Associated Diagnosis Comments COMPREHENSIVE METABOLIC PANEL STAT 01/13/2024 7:10 AM CDT from Last 3 Months or Most Recently Relevant to Health Maintenance Results * (ABNORMAL) Comprehensive Metabolic Panel (01/13/2024 7:10 AM CDT) Fasting Status 01/13/2024 7:38 AM T [facility] Sodium 138 135 - 145 mmol/L 01/13/2024 7:38 AM [facility] Potassium 3.6 3.4 - 5.1 mmol/L 01/13/2024 7:38 AM [facility] Chloride 104 97 - 110 mmol/L 01/13/2024 7:38 AM [facility] Carbon Dioxide 30 21 - 32 mmol/L 01/13/2024 7:38 AM [facility] Anion Gap 8 7 - 19 mmol/L 01/13/2024 7:38 AM [facility] Glucose 143(H) 70 - 99 mg/dL 01/13/2024 7:38 AM [facility] BUN 20 6 - 20 mg/dL 01/13/2024 7:38 AM [facility] Creatinine 1.16(H) 0.51 - 0.95 mg/dL 01/13/2024 7:38 AM [facility] Glomerular Filtration Rate 56(L) >=60 01/13/2024 7:38 AM [facility] Comment:eGFR 30-59 mL/min/1. 73m2 = Moderate decrease in kidney function. Stage 3 CKD (chronic kidney disease) or moderate kidney disease. Estimated GFR calculated using the CKD-EPI-R (2020) equation that does not include race in the creatinine calculation. BUN/Cr 17 7 - 25 01/13/2024 7:38 AM [facility] Calcium 8.9 8.4 - 10.2 mg/dL 01/13/2024 7:38 AM [facility] Bilirubin, Total 0.7 0.2 - 1.0 mg/dL 01/13/2024 7:38 AM CDT [facility] GOT/AST 16 <=37 Units/L 01/13/2024 7:38 AM CDT [facility] GPT/ALT 18 <64 Units/L 01/13/2024 7:38 AM CDT [facility] Alkaline Phosphatase 119(H) 45 - 117 Units/L 01/13/2024 7:38 AM CDT [facility] Albumin 3.0(L) 3.6 - 5.1 g/dL 01/13/2024 7:38 AM CDT [facility] Protein, Total 6.9 6.4 - 8.2 g/dL 01/13/2024 7:38 AM CDT [facility] Globulin 3.9 2.0 - 4.0 g/dL 01/13/2024 7:38 AM CDT [facility] A/G Ratio 0.8(L) 1.0 - 2.4 01/13/2024 7:38 AM CDT [facility] Blood VENOUS BLOOD SPECIMEN / Unknown Venipuncture / Unknown 01/13/2024 7:10 AM CDT 01/13/2024 7:15 AM CDT Nicholas Rios DO BKR LAB BLOOD ORDERA BLES Performing Organization Address City/State/[facility] Co de Phone Number [facility] [address] [place] [address] from Last 3 Months or Most Recently Relevant to Health Maintenance Advance Directives * Selective Treatment/DNR (Latest Code Status on File) Date Activated Date Inactivated Comments 01/09/2024 3:54 PM 01/11/2024 1:38 PM Question Answer Comments CPR in case of Cardiac Arrest? No Intubation ( Pre-Arrest ) ? Yes Antiarrhythmics (Pre-Arrest)? Yes Cardioversion (Pre-Arrest)? Yes Vasopressor (Pre-Arrest)? Yes Care Teams Hand Buffer Relationship Specialty Start Date End Date Marleni Jung [address] [place] [phone] PCP - General Family Practice 01/09/24
--- OUTSIDE RECORDS SUMMARY | 2024-07-17 03:08 | XMS_ITS | Encounter Summary ---
Author Organization [facility] Address [address] [place] [address]. [place], [place] [id number] [place] [id number] Care Team Providers Care Reel And Rewinder Operator Name Role Phone None, Provider MD Primary Care Provider Unavaila ble Reason for Visit * Reason Comments Swelling Patient states bilat eral leg swelling x1 1/2 weeks. Describes leg pain as stabbing. Also c/o SOB. Encounter Details Date Type Department Care Team (Late st Contact Info) Description 03/11/2014 9:48 PM CDT - 03/11/2014 11:17 PM CDT Emergency [facility] [address] [place] [id number] Joy Ray, DO [address] [place] [address] Swelling (Patient states bilateral leg swelling x1 1/2 weeks. Describes leg pain as stabbing. Also c/o SOB. 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 on file Not on file Not on file documented as of this encounter Last Filed Vital Signs Vital Sign Reading Time Taken Comments Blood Pressure 133/83 03/11/2014 11:11 PM CDT Pulse 93 03/11/2014 11:11 PM CDT Temperature 37.2 ??C (99 ??F) 03/11/2014 9:46 PM CDT Respiratory Rate 18 03/11/2014 11:11 PM CDT Oxygen Saturation 96% 03/11/2014 11:11 PM CDT Inhaled Oxygen Concentration - - Weight 113.9 kg (251 lb 3 oz) 03/11/2014 9:46 PM CDT Height 172.7 cm (5' 8 ) 03/11/2014 9:46 PM CDT Body Mass Index 38.19 03/11/2014 9:46 PM CDT documented in this encounter Discharge Instructions * Discharge Instructions* Joy Ray, - 03/11/2014 11:06 PM CDT DISCHARGE INSTRUCTIONS: DIAGNOSIS: chest wall pain and mild leg swelling and mild hyperglycemia PLAN AND FOLLOW-UP: Follow-up with primary physician refferal. Return if symptoms are persistent or worsening. Follow-up primary doctor should for a recheck. Ice 20 minutes on 20 minutes off not directly applied to the skin. No stretching. Motrin 600 mg every six hours as needed for pain. DISCLAIMER: The following discussion took place: the patient was told that an appropriate evaluation has been performed, and in my medical judgment there is currently no evidence of an immediate life-threateningor surgical condition. Discharge is therefore indicated at this time. Multiple differential diagnoses were considered. The patient/caregivers have been appraised of these as well as diagnostic/treatment options and alternate modes of care and there associated risks andbenefits. However the patient was advised that there is always a possibility that a more serious condition could develop. The patient was instructed to arrange mandatory close follow-up with their physician, or with the referral physician given within 24-48 hours. If that doctor is not available, the patienthas been instructed to return immediately to the Emergency Department if new, persistent or symptoms occur. Costochondritis WHAT YOU SHOULD KNOW: ?? Costochondritis is a condition that causes pain in the cartilage and joints connecting your ribsto your sternum (breastbone). Cartilage is the tough, bendable tissue that protects bones. Joints are the places in your body where two or more bones meet, such as your knees or elbows. Ribs are the bones that go from your sternum to your spine, protecting your lungs and heart. The pain of costochondritis may be in one or more joints, and often affects the second through fifth ribs. You may not know what caused your costochondritis. Known causes of costochondritis include a lung infection, a chest injury, or activities such as rowing. ?? Costochondritis causes pain in the area of your sternum. The pain may be in a small or large area. It may come and go, and get worse or better over time. The pain may be sharp or dull and aching, and can spread to your back, stomach, or down your arm. The pain may worsen when you move or take deep breaths. You may need blood tests and an electrocardiogram (ECG) to make sure your chest pain is not caused by other problems. Costochondritis pain may go away without treatment, usually within a year. Treatment options include medicines, physical therapy, and acupuncture. Treatment may decrease your pain, and help you return to doing your usual activities sooner. INSTRUCTIONS: Medicines: ?? Keep a list of your medicines: Keep a written list of the medicines you take, the amounts, and when and why you take them. Bring the list of your medicines or the pill bottles when you see your caregivers. Do not take any medicines, vcai-rca-wacwhcl drugs, vitamins, herbs, or food supplements without first talking to caregivers. ?? Take your medicine as directed: Always take your medicine as directed by caregivers. Call your caregiver if you think your medicines are not helping or if you feel you are having side effects. Do not quit taking your medicines until you discuss it with your caregiver. ?? Acetaminophen: This medicine is used to decrease pain and lower a high body temperature (fever).Taking too much acetaminophen can hurt your liver. Read labels so that you know the active ingredients in each medicine that you take. Talk to your caregiver before taking more than one medicine thatcontains acetaminophen. Ask your caregiver before taking wheg-xiy-iqwnmgr medicine if you are also taking pain medicine prescribed (ordered) for you. ?? Nonsteroidal anti-inflammatory medicine: Nonsteroidal anti-inflammatory medicine (also called NSAIDs) may help decrease the pain of costochondritis. This medicine can be bought with or without a doctor's order. NSAIDs can cause stomach bleeding or kidney problems in certain people. Always read the medicine label, and follow the directions on it before using this medicine. Ask your caregiver when to return for a follow-up visit. Keep all appointments. Write down any questions you may have. This way you will remember to ask these questions during your next visit. Rest: You may need to get more rest. Learn what movements and activities cause pain, and avoid doing them. Avoid carrying objects, such as a purse or backpack, if this is painful. Avoid activities such as rowing and weight lifting until your pain decreases or goes away. Ask your caregiver which activities are best for you to do while you recover. Use heat and ice: A heating pad or an ice pack placed on painful areas may decrease your pain. Wrapan ice pack in a towel before using it. Never sleep with a heating pad or ice pack left in place, as this can damage your skin. Ask your caregiver how often you should use heat or ice on your injury. Go to physical therapy: You may need to see a physical therapist. This caregiver will teach you exercises to help strengthen your chest muscles and decrease your pain. Physical therapy may help you return to your usual activities faster. Your therapy may also include manipulation, which is when caregivers move your joints. Caregivers may massage painful areas. Exercises: Your caregiver may give you exercises to do at home to decrease your pain. It is best tostart slowly, and do more as you get stronger. Ask your caregiver for more information about exercises that you can do at home. Acupuncture: Acupuncture is a treatment based on a belief that fluids flow through channels in our bodies. Caregivers insert very thin needles just under your skin. This is believed to open the channels, allowing fluids to flow better. This treatment may decrease pain and improve healing. Always see a caregiver for acupuncture. Do not try to give this treatment to yourself. Supportive clothing: If you are female, wearing a bra that provides support may make you feel more comfortable and decrease your pain. CONTACT A CAREGIVER IF: ?? You have a fever (increased body temperature). ?? The painful areas of your chest look swollen, red, and feel warm to touch. ?? You cannot sleep because of the pain. ?? You have questions or concerns about your condition. Copyright ?? 2011. [employer]. All rights reserved. Information is for End User's use only andmay not be sold, redistributed or otherwise used for commercial purposes. The above information is an supervisor braiding only. It is not intended as medical advice for individual conditions or treatments. Talk to your doctor, nurse or pharmacist before following any medical regimen to see if it is safe and effective for you. documented in this encounter Medications at Time of Discharge furosemide 40 MG tablet Take 40 mg by mouth daily. 08/28/2014 sertraline 100 MG tablet Take 100 mg by mouth daily. 03/16/2014 SUMATRIPTAN SUCCINATE 6 MG/0.5ML SC KIT TO USE DIRECTED 1 0 06/26/2008 08/28/2014 documented as of this encounter ED Notes * EDDI Bernardo - 03/11/2014 11:04 PM CDT XR done * EDDI Bernardo - 03/11/2014 10:53 PM CDT XR out * Joy Ray DO - 03/11/2014 9:56 PM CDT History Chief Complaint Patient presents with ??? Swelling HPI The patient is a 43-year-old female but no set her legs seem more swollen than normal. She had an episode of stabbing chest pain last visit couple seconds last night on the left-sided chest pain wentaway. No radiation diaphoresis or shortness of breath. She's had no chest pressure or other complaints. She has intermittent stabbing pain in her legs that seems to come and go. No fevers or recent illnesses. Past Medical History Diagnosis Date ??? Rheumatoid arthritis(714.0) 1987 ??? Excessive or frequent menstruation ??? Polycystic kidney, unspecified type dx 2002 or 2003 ??? Congenital cystic disease of liver ??? Endometriosis dx with surgery ??? Gastric ulcer, unspecified as acute or chronic, without mention of hemorrhage or perforation 2005 dx with endoscopy - placed on Protonix ??? Depressive disorder, not elsewhere classified slight anxiety assoc Past Surgical History Procedure Laterality Date ??? Laparoscopic cholecystectomy 06/18/05 CHOLECYSTECTOMY, LAPAROSCOPIC ??? delivery only ONLY, LOW CERVICAL ??? Endoscopy 2005 dx ulcers Family History Problem Relation Age of Onset ??? Alcohol/Drug Sister alcohol ??? Alcohol/Drug Brother x2 alcohol ??? Cancer Father prostate ??? Cancer Brother bladder ??? Cancer Sister cervical ??? Diabetes Maternal Grandmother ??? Hypertension Father ??? Hypertension Sister ??? Mental Health Brother depression ??? Mental Health Sister sister ??? Osteoporosis Mother ??? Other [Other] [OTHER] Maternal Grandmother pardkinsons ??? Arthritis Mother ??? Arthritis Father ??? Convulsions/Seizures Brother following brain injury ??? Genitourinary () Father polycystic kidneyspresently on dialysis ??? Genitourinary () Sister x2 with polycystic kidneys ??? Migraines/Headaches Sister ??? Cancer Daughter nodular sclerosing hodgkins lymphome dx age 17 History Substance Use Topics ??? Smoking status: Never Smoker ??? Smokeless tobacco: Not on file ??? Alcohol Use: No Prior to Admission medications Medication Sig Start Date End Date Taking? Authorizing Provider furosemide 40 MG tablet Take 40 mg by mouth daily. Yes Doc Abstract sertraline 100 MG tablet Take 100 mg by mouth daily. Yes Doc Abstract SUMATRIPTAN SUCCINATE 6 MG/0.5ML SC KIT TO USE DIRECTED 06/26/08 Raquel Gauthier MD Allergies Allergen Reactions ??? Ancef (Cefazolin Sodium) Shortness of Breath ??? Dicloxacillin Itching ??? Sulfa Drugs Rash Review of Systems Review of Systems Constitutional: Negative. HENT: Negative. Eyes: Negative. Respiratory: Negative. Cardiovascular: Positive for chest pain (sharp chest pain lasting a couple seconds). Gastrointestinal: Negative. Genitourinary: Negative. Musculoskeletal: Negative. Leg swelling Skin: Negative. Neurological: Negative. Psychiatric/Behavioral: Negative. Physical Exam Filed Vitals: 03/11/14 2146 BP: 131/88 Pulse: 100 Temp: 99 ??F (37.2 ??C) TempSrc: Oral Resp: 17 Height: 5' 8 (1.727 m) Weight: 113.938 kg (251 lb 3 oz) SpO2: 96% Physical Exam Nursing note and vitals reviewed. Constitutional: She is oriented to person, place, and time. She appears well- developed and well-nourished. HENT: Head: Normocephalic and atraumatic. Right Ear: External ear normal. Left Ear: External ear normal. Nose: Nose normal. Mouth/Throat: Oropharynx is clear and moist. No oropharyngeal exudate. Eyes: Conjunctivae and EOM are normal. Pupils are equal, round, and reactive to light. Right eye exhibits no discharge. Left eye exhibits no discharge. No scleral icterus. Neck: Normal range of motion. Neck supple. No JVD present. No tracheal deviation present. No thyromegaly present. Cardiovascular: Normal rate, regular rhythm, normal heart sounds and intact distal pulses. Exam reveals no gallop and no friction rub. No murmur heard. Pulmonary/Chest: Effort normal and breath sounds normal. No stridor. No respiratory distress. She has no wheezes. She has no rales. She exhibits no tenderness. Abdominal: Soft. Bowel sounds are normal. She exhibits no distension and no mass. There is no tenderness. There is no rebound and no guarding. Musculoskeletal: Normal range of motion. She exhibits no edema and no tenderness. Lymphadenopathy: She has no cervical adenopathy. Neurological: She is alert and oriented to person, place, and time. She has normal reflexes. No cranial nerve deficit. She exhibits normal muscle tone. Coordination normal. Skin: Skin is warm and dry. No rash noted. No erythema. No pallor. Psychiatric: She has a normal mood and affect. Her behavior is normal. Judgment and thought contentnormal. ED Course Procedures MDM Number of Diagnoses or Management Options Diagnosis management comments: EMERGENCY DEPARTMENT PRESENTATION AND TREATMENT: Vangie Yuen is 43-year-old female who presents with a sensation of leg swelling and transient cp. She has a normal ekg and ddimer and labs are wnl. CXR is negative and she has no signs of leg edema on my exam. She had transient chest pain for a couple of seconds and then went away an this is felt to be muscular. She has a mildly elevated blood sugar so a HGB A1c was ordered with follow up with an md referral. The patient was placed on the monitor, IV established, rhythm monitoring done and EKG reviewed. RESPONSE TO TREATMENT: stable. PLAN: Discharge home with follow-up with md. EMERGENCY DEPARTMENT MEDICAL DECISION MAKING: Prior to obtaining the patients history, performing the physical exam and reviewing the diagnostics, initial considerations based on the presenting problem included, but are not limited to: Trauma, bursitis, post-operative, cellulitis, phlebitis, thrombophlebitis, compartment syndrome, intraabdominal abscess or mass, lymphedema, OA, varicose veins, leg ulcer, Bakers, cyst, intraabdominal hematoma, blood clot and aneurysm. After the evaluation in the Emergency Department and reviewing diagnostics, my clinical Impression/Diagnosis is transient chest pain. The patients condition was stable during the Emergency department evaluation. Previous medical records reviewed. height is 5' 8 (1.727 m) and weight is 113.938 kg (251 lb 3 oz). Her oral temperature is 99 ??F (37.2 ??C). Her blood pressure is 131/88 and her pulse is 100. Her respiration is 17 and oxygen saturation is 96%. Rhythm strip was obtained do to chest pain and it showed nsr. EKG: normal EKG, normal sinus rhythm with no acute changes DIAGNOSTICS: Results for orders placed during the hospital encounter of 03/11/14 -THYROID STIM HORMONE, TSH TSH 3.020 Range: 0.358 - 3.740 uIU/mL -D-DIMER, QUANTITATIVE D-DIMER 202 Range: <232 ng/mL D-DU -COMPREHENSIVE METABOLIC PANEL SODIUM 138 Range: 136 - 145 mmol/L POTASSIUM 3.2 (*) Range: 3.5 - 5.1 mmol/L CHLORIDE 102 Range: 98 - 107 mmol/L CO2 24 Range: 21 - 32 mmol/L ANION GAP 12 Range: 5 - 15 mmol/L BUN 10 Range: 7 - 18 mg/dL CREATININE 1.0 Range: 0.6 - 1.0 mg/dL BUN CREATININE RATIO 10.0 Range: 10 - 20 :1 eGFR Non-Afr. Amer. >60 Range: >60 mls/min. eGFR Afr. Amer. >60 Range: >60 mls/min. GLUCOSE 168 (*) Range: 70 - 99 mg/dL CALCIUM 8.5 Range: 8.5 - 10.1 mg/dL TOTAL PROTEIN 7.3 Range: 6.4 - 8.5 g/dL ALBUMIN 3.2 Range: 3.1 - 5.0 g/dL TOTAL BILIRUBIN 0.3 Range: 0.2 - 1.0 mg/dL ALK PHOS 110 Range: 45 - 117 U/L AST 15 Range: 15 - 37 U/L ALT 25 Range: 12 - 78 U/L -CBC W/DIFF AUTOMATED WBC 9.6 Range: 3.8 - 10.7 k/uL RBC 4.54 Range: 3.8 - 5.2 m/uL HGB 13.2 Range: 12.0 - 16.0 g/dL HCT 38.4 Range: 35.0 - 46.0 % MCV 85 Range: 80.0 - 98.0 fl MCH 29.1 Range: 25.0 - 34.0 pg MCHC 34.4 Range: 32.0 - 36.0 g/dL RDW 14.3 Range: 11.0 - 15.0 % RDW-SD 43.7 Range: 36.4 - 46.3 fL PLT 218 Range: 140 - 440 k/uL MPV 12.10 Range: 9.2 - 12.7 fl DIFFERENTIAL TYPE AUTO-DIFF % NEUTROPHILS 63.2 % LYMPHOCYTES 27.5 % MONOCYTES 5.3 % EOSINOPHILS 2.8 % BASOPHILS 0.4 % IMMATURE GRANS 0.8 ABS. NEUTROPHILS 6.1 Range: 1.6 - 7.2 k/uL ABS. LYMPHOCYTES 2.7 Range: 0.9 - 4.0 k/uL ABS. MONOCYTES 0.5 Range: 0.2 - 0.9 k/uL ABS. EOSINOPHILS 0.3 Range: 0.0 - 0.5 k/uL ABS. BASOPHILS 0.0 Range: 0.0 - 0.2 k/uL ABS. IMMATURE GRANULOCYTES 0.1 (*) Range: 0.0 k/uL -ECG 12-LEAD EKG Joy Ray DO 03/11/14 [id number] documented in this encounter Plan of Treatment Not on file documented as of this encounter Procedures Procedure Name Priority Date/Time Associated Diagnosis Comments XR CHEST PA+LAT STAT 03/11/2014 11:00 PM CDT HEMOGLOBIN, GLYCOSYLATED STAT 03/11/2014 10:15 PM CDT COMPREHENSIVE METABOLIC PANEL STAT 03/11/2014 10:15 PM CDT D-DIMER, QUANTITATIVE STAT 03/11/2014 10:15 PM CDT CBC W/DIFF AUTOMATED STAT 03/11/2014 10:15 PM CDT THYROID STIM HORMONE TSH STAT 03/11/2014 10:15 PM CDT ECG 12-LEAD STAT 03/11/2014 10:00 PM CDT documented in this encounter Results * XR CHEST PA+LAT (03/11/2014 11:00 PM CDT) Anatomical Region Laterality Modality Chest Computed Radiogr aphy 03/11/2014 11:0 0 PM CDT 03/12/2014 7:04 AM CDT Narrative 03/12/2014 7:04 AM CDT INTERPRETATION LOCATION: [facility] PROCEDURE: ??XR CHEST PA+LAT VIEW(S): ?? PA and lateral DATE: ??03/11/2014 11:00 PM COMPARISONS: 09/15/2005 CLINICAL INDICATION: 43 years Female ??cp ? FINDINGS: The cardiomediastinal silhouette and pulmonary vasculature are within normal limits. Lungs are clear. There is no evidence of pleural effusion or pneumothorax. ?? IMPRESSION: Chest radiograph is within normal limits. ?? Dictated By: Raz Muller Dictated On: 03/12/2014 07:04:06 Electronically Signed By: Raz Muller Electronically Signed on: 03/12/2014 07:04:59 Procedure Note Raz Muller MD - 03/12/2014 INTERPRETATION LOCATION: [facility] PROCEDURE: XR CHEST PA+LAT VIEW(S): PA and lateral DATE: 03/11/2014 11:00 PM COMPARISONS: 09/15/2005 CLINICAL INDICATION: 43 years Female cp FINDINGS: The cardiomediastinal silhouette and pulmonary vasculature are withinnormal limits. Lungs are clear. There is no evidence of pleural effusion or pneumothorax. IMPRESSION: Chest radiograph is within normal limits. Dictated By: Raz Muller Dictated On: 03/12/2014 07:04:06 Electronically Signed By: Raz Muller Electronically Signed on: 03/12/2014 07:04:59 Joy Ray DO GENERAL IMAGING Final Res ult * HEMOGLOBIN, GLYCATED (03/11/2014 10:15 PM CDT) HGB A1C 5.5 4.5 - 6.2 % [facility] Comment: The [place] [employer] recommends that a primary goal of therapy should be a HgA1c of <7%. ESTIMATED AVG GLUCOSE 111 mg/dL [facility] I.V. SITE 03/11/2014 10:1 5 PM CDT 03/11/2014 11:11 PM CDT us Joy Ray DO LABORATORY Final Res ult [facility] [address] [place] [address] * (ABNORMAL) CBC W/DIFF AUTOMATED (03/11/2014 10:15 PM CDT) WBC 9.6 3.8 - 10.7 k/uL [facility] RBC 4.54 3.8 - 5.2 m/uL [facility] HGB 13.2 12.0 - 16.0 g/dL [facility] HCT 38.4 35.0 - 46.0 % [facility] MCV 85 80.0 - 98.[address] [facility] MCH 29.1 25.0 - 34.[address] [facility] MCHC 34.4 32.0 - 36.0 g/dL [facility] RDW 14.3 11.0 - 15.0 % [facility] RDW-SD 43.7 36.4 - 46.[address] [facility] PLT 218 140 - 440 k/uL [facility] MPV 12.10 9.2 - 12.[address] [facility] DIFFERENTIAL TYPE AUTO-DIFF [facility] NEUTROPHILS % 63.2 % [facility] LYMPHOCYTES % 27.5 % [facility] MONOCYTES % 5.3 % [facility] EOSINOPHILS % 2.8 % [facility] BASOPHILS % 0.4 % [facility] IMMATURE GRANS % 0.8 % [facility] ABS. NEUTROPHILS 6.1 1.6 - 7.2 k/uL [facility] ABS. LYMPHOCYTES 2.7 0.9 - 4.0 k/uL [facility] ABS. MONOCYTES 0.5 0.2 - 0.9 k/uL [facility] ABS. EOSINOPHILS 0.3 0.0 - 0.5 k/uL [facility] ABS. BASOPHILS 0.0 0.0 - 0.2 k/uL [facility] ABS. IMMATURE GRANULOCYTES 0.1(H) 0.0 k/uL [facility] I.V. SITE 03/11/2014 10:1 5 PM CDT 03/11/2014 10:20 PM CDT us Joy Ray DO LABORATORY Final Res ult [facility] [address] [place] [address] * (ABNORMAL) COMPREHENSIVE METABOLIC PANEL (03/11/2014 10:15 PM CDT) SODIUM S/P/B 138 136 - 145 mmol/L [facility] POTASSIUM S/P/B 3.2(L) 3.5 - 5.1 mmol/L [facility] CHLORIDE S/P/B 102 98 - 107 mmol/L [facility] CO2 24 21 - 32 mmol/L [facility] ANION GAP 12 5 - 15 mmol/L [facility] BUN 10 7 - 18 mg/dL [facility] CREATININE S/P/B 1.0 0.6 - 1.0 mg/dL [facility] BUN CREATININE RATIO 10.0 10 - 20 :1 [facility] EGFR NON-AFR. AMER. >60 >60 mls/min. [facility] EGFR AFR. AMER. >60 >60 mls/min. [facility] GLUCOSE 168(H) 70 - 99 mg/dL [facility] CALCIUM S/P/B 8.5 8.5 - 10.1 mg/dL [facility] TOTAL PROTEIN S/P/B 7.3 6.4 - 8.5 g/dL [facility] ALBUMIN S/P/B 3.2 3.1 - 5.0 g/dL [facility] BILIRUBIN TOTAL S/P/B 0.3 0.2 - 1.0 mg/dL [facility] ALKALINE PHOSPHATASE S/P/B 110 45 - 117 U/L [facility] AST 15 15 - 37 U/L [facility] ALT 25 12 - 78 U/L [facility] I.V. SITE 03/11/2014 10:1 5 PM CDT 03/11/2014 10:20 PM CDT us Joy Ray DO LABORATORY Final Res ult [facility] [address] [place] [address] * D-DIMER, QUANTITATIVE (03/11/2014 10:15 PM CDT) D-DIMER 202 <232 ng/mL D-DU [facility] Comment: ?? Only values less than 230 ng/mL D-DU should be considered to have 100% negative predictive value for PE/DVT. ?? This D-Dimer method may be useful as an aid in the diagnosis of thromboembolytic events, including DVT and PE. The D-Dimer result must be used in conjunction with the patient's history, including medications and clinical presentation to determine if further confirmatory testing is required. ?? I.V. SITE 03/11/2014 10:1 5 PM CDT 03/11/2014 10:20 PM CDT us Joy Ray DO LABORATORY Final Res ult Performing Organization Address [facility] de Phone Number [facility] [address] [place] [address] * THYROID STIM HORMONE, TSH (03/11/2014 10:15 PM CDT) Pathologist [facility] TSH 3.020 0.358 - 3.740 uIU/mL [facility] I.V. SITE 03/11/2014 10:1 5 PM CDT 03/11/2014 10:20 PM CDT Vitacristelsylvia Ray DO LABORATORY Final Res ult Performing Organization Address [facility] de Phone Number [facility] [address] [place] [address] * ECG 12 lead (03/11/2014 10:00 PM CDT) Pathologist [facility] EKG <!--EPICS--><H3> ? [facility] ED</H3>
?

<b>Test Date: ?2014-03-11</b>
Pat Name: ? VANGIE YUEN ? Department: ?? 20
? Room: ? 1515
Gender: ? F ?Business Process Modeler: ??
: ?1970 ? Requested By: JOY RAY
O rder Number: [id number] ? Reading MD: ?? Joy Ray
< br><b>Measuremen ts</b>
Interv als ?[place] ?
Rate: ? 82 ? P: ?42
[place]: ? 172 ?QRS: ?27
QRSD: ? 84 ? T: ?50
QT: ? 352 ?
QTc: ?

<b>Inter pretive Statements</b><b r> Age and gender specific ECG analysis
Normal sinus rhythm
Normal ECG

Elect ronically signed by Joy Ray at 03-13-14 05:47:24 CDT<!--EPICE--> [facility] 03/11/2014 10:0 0 PM CDT us Joy Ray DO ECG ORDERABLES Final Res ult [facility] documented in this encounter Visit Diagnoses Diagnosis Costochondritis- Primary Tietze's disease documented in this encounter Care Teams Reel And Rewinder Operator Relationship Specialty Start Date End Date None, Provider, PCP - General 03/11/14 documented as of this encounter
--- OUTSIDE RECORDS SUMMARY | 2024-07-17 03:08 | XMS_ITS | Encounter Summary ---
Author Organization [facility] Address [address] [place] [address]. [place], [place] [address] [place] [address] Care Team Providers Care Registered Representative Name Role Phone None, Provider Primary Care Provider Charlenea nikole Manarang, Don DO Primary Care Provider [phone] Manarang, Don DO Primary Care Provider [phone] Manarang, Don DO Primary Care Provider [phone] Encounter Details Date Type Department Care Team (Late st Contact Info) Description 01/21/2013 Abstract [facility] Emergency [place], [place] [id number] , MD Elver Patel Randy J, MD [address] [place] [address] Social History Tobacco Use Types Packs/Day Years [...] 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 [address] [place] [address] PCP - General 01/31/13 03/10/14 Bakari Vasquez DO [address] [facility] [address] [place] [address] PCP - General 01/25/13 01/30/13 Bakari Vasquez DO [address] [facility] [address] [place] [address] PCP - General 01/21/13 01/24/13 documented as of this encounter
--- OUTSIDE RECORDS SUMMARY | 2024-07-17 03:08 | XMS_ITS | Encounter Summary ---
Author Organization [facility] Address [address] [place] [address]. [place], [place] [address] [place] [address] Care Team Providers Care Used Car Make Ready Worker Name Role Phone None, Provider Primary Care Provider Unavaila ble Encounter Details Date Type Department Care Team (Late st Contact Info) Description 04/23/2020 Scan [facility] [address] Scanned, Documents Social History Tobacco Use Types Packs/Day Years Used Date Smoking Tobacco: Never Smokeless Tobacco: Never Alcohol Use Standard Drinks/Week Comments No 0 (1 standard drink = 0.6 oz pur e alcohol) Comments No Sex and Gender Information Value Date Recorded Sex Assigned at Not on file Legal Sex Female 11:28 AM CDT Gender Identity Not on file Sexual Orientation Not on file 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 Not on file Not on file documented as of this encounter Plan of Treatment Not on file documented as of this encounter Procedures Procedure Name Priority Date/Time Associated Diagnosis Comments STRESS TEST (SCAN ORDER) Routine 01/30/2013 documented in this encounter Results * STRESS TEST (01/30/2013) us Documents Scanned SCANNING Final Result [facility] documented in this encounter Visit Diagnoses Not on filedocumented in this encounter Care Teams Used Car Make Ready Worker Relationship Specialty Start Date End Date None, Provider, PCP - General 03/11/14 documented as of this encounter
--- OUTSIDE RECORDS SUMMARY | 2024-07-17 03:08 | XMS_ITS | Encounter Summary ---
Author Organization [facility] Address [address] [place] [address]. [place], [place] [address] [place] [address] Care Team Providers Care Supervisor Cytogenetic Laboratory Name Role Phone Raquel Gauthier MD Primary Care Provider [phone] None, Provider Primary Care Provider Unavaila ble Manarang, Don DO Primary Care Provider [phone] Manarang, Don DO Primary Care Provider [phone] Manarang, Don DO Primary Care Provider [phone] Manarang, Don DO Primary Care Provider [phone] Manarang, Don DO Primary Care Provider [phone] Manarang, Don DO Primary Care Provider [phone] Manarang, Don DO Primary Care Provider [phone] Encounter Details Date Type Department Care Team (Late st Contact Info) Description 05/05/2009 Abstract [facility] [place] [address] Ricci Ruiz MD [address] 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 [place], [place] [id number] PCP - General 10/30/09 10/30/09 None, MD Aurelio [facility] ?? [place] [address] PCP - General 03/11/14 Bakari Vasquez DO [address] [place] [address] PCP - General 01/31/13 03/10/14 Bakari Vasquez DO [address] [place] [address] PCP - General 01/25/13 01/30/13 Bakari Vasquez DO [address] [place] [address] PCP - General 01/21/13 01/24/13 Bakari Vasquez DO [address] [place] [address] PCP - General 01/09/13 01/20/13 Bakari Vasquez DO [address] [place] [address] PCP - General 01/03/13 01/08/13 Bakari Vasquez DO [address] [place] [address] PCP - General 01/01/13 01/02/13 Bakari Vasquez DO [address] [facility] [address] [place] [address] PCP - General 12/25/12 12/31/12 documented as of this encounter
--- OUTSIDE RECORDS SUMMARY | 2024-07-17 03:08 | XMS_ITS | Encounter Summary ---
Author Organization [facility] Address [address] [place] [address]. [place], [place] [address] [place] [address] Care Team Providers Care Group Therapist Name Role Phone Raquel Gauthier MD Primary Care Provider [phone] None, Provider Primary Care Provider Unavaila ble Manarang, Don DO Primary Care Provider [phone] Manarang, Don DO Primary Care Provider [phone] Manarang, Don DO Primary Care Provider [phone] Manarang, Don DO Primary Care Provider [phone] Manarang, Don DO Primary Care Provider [phone] Manarang, Don DO Primary Care Provider [phone] Manarang, Don DO Primary Care Provider [phone] Encounter Details Date Type Department Care Team (Late st Contact Info) Description 05/12/2009 Abstract [place] [address] Natalia Reyes MD [address] [place] [phone] Social History Tobacco Use Types Packs/Day Years [...] 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 [place] [address] PCP - General 10/30/09 10/30/09 None, Aurelio, [address] ?? [place] [address] PCP - General 03/11/14 Bakari Vasquez DO [address] [place] [address] PCP - General 01/31/13 03/10/14 Bakari Vasquez DO [address] [place] [address] PCP - General 01/25/13 01/30/13 Bakari Vasquez DO [address] [place] [address] PCP - General 01/21/13 01/24/13 Bakari Vasquez DO [address] [place] [address] PCP - General 01/09/13 01/20/13 Bakari Vasquez DO [address] [place] [address] PCP - General 01/03/13 01/08/13 Bakari Vasquez DO [address] [place] [address] PCP - General 01/01/13 01/02/13 Bakari Vasquez DO [address] [place] [address] 20 [place] [address] PCP - General 12/25/12 12/31/12 documented as of this encounter
--- OUTSIDE RECORDS SUMMARY | 2024-07-17 03:08 | XMS_ITS | Encounter Summary ---
Author Organization [facility] Address [address] [place] [address]. [place], [place] [address] [place] [address] Care Team Providers Care Coastal And Estuary Specialist Name Role Phone Unavailable Primary Care Provider Unavailabl e Reason for Visit * Reason Onset Date Comments Medication 12/30/2008 PT WAS TO HAVE B IRTH CONTROL REFILLED BY 12/28 AND DID NOT REALIZE IT AND STATES SHE IS COMPLETLY OUT OF BC PT USES [facility] Encounter Details Date Type Department Care Team (Late st Contact Info) Description 12/30/2008 Nurse Triage [facility] [address] [place] [address] Raquel Gauthier MD [facility] [address] ?? 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 I refilled this for one month, per protocol. I called pt. And advised she make an appt. To be seen, as her annual physical was over 1 year ago. States they are moving out of state next week, and she will establish as soon as she relocates. documented in this encounter Plan of Treatment Not on file documented as of this encounter Visit Diagnoses Not on filedocumented in this encounter
--- OUTSIDE RECORDS SUMMARY | 2024-07-17 03:08 | XMS_ITS | Encounter Summary ---
Author Organization [facility] Address [address] [place] [address]. [place], [place] [address] [place] [address] Care Team Providers Care Grain Sacker Name Role Phone Unavailable Primary Care Provider Unavailabl e Reason for Visit * Reason Onset Date Comments Medication 02/18/2009 running low on B CP, [place] of state, unable to establish with doc there until later this month. Encounter Details Date Type Department Care Team (Late st Contact Info) Description 02/18/2009 Nurse Triage [facility] [address] [place] [address] Raquel Gauthier MD [address] ?? 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 Negative: all questions in Call PCP Now section. Affirmative: Caller requesting a nonurgent new prescription or refill and triager unable to refill per unit policy Disposition of Call PCP within 24 hrs suggested. Patient calls requesting refill on [facility] to be called down to [place], [place]. Has appointment on 03/07/09 in [place]. Already given one refill on 12/30/08, no physical since 12/23. Instructed to call back during normal business hours. Verbalizes understanding. documented in this encounter Plan of Treatment Not on file documented as of this encounter Visit Diagnoses Not on filedocumented in this encounter
--- OUTSIDE RECORDS SUMMARY | 2024-07-17 03:08 | XMS_ITS | Encounter Summary ---
Author Organization [facility] Address [address] [place] [address]. [place], [place] [address] [place] [address] Care Team Providers Care Tie Up Worker Name Role Phone None, Provider Primary Care Provider Geovanna agustin Manarang, Don DO Primary Care Provider [phone] Manarang, Don DO Primary Care Provider [phone] Manarang, Don DO Primary Care Provider [phone] Manarang, Don DO Primary Care Provider [phone] Manarang, Don DO Primary Care Provider [phone] Manarang, Don DO Primary Care Provider [phone] Manarang, Don DO Primary Care Provider [phone] Encounter Details Date Type Department Care Team (Late st Contact Info) Description 02/13/2010 Scan [facility] Health Information Management [address] [place], [place] [id number] , Sheila Tate MD Social History Tobacco Use Types Packs/Day Years [...] 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 on file documented as of this encounter Plan of Treatment Not on file documented as of this encounter Visit Diagnoses Not on filedocumented in this encounter Care Teams Tie Up Worker Relationship Specialty Start Date End Date None, Provider, PCP - General 03/11/14 Bakari Vasquez DO [address] [place] [address] PCP - General 01/31/13 03/10/14 Bakari Vasquez DO [address] [place] [address] PCP - General 01/25/13 01/30/13 Bakari Vasquez DO [address] [place] [address] PCP - General 01/21/13 01/24/13 Bakari Vasquez DO [address] [place] [address] PCP - General 01/09/13 01/20/13 Bakari Vasquez DO [address] [place] [address] PCP - General 01/03/13 01/08/13 Bakari Vasquez DO [address] [place] [address] PCP - General 01/01/13 01/02/13 Bakari Vasquez DO [address] [place] [address] PCP - General 12/25/12 12/31/12 documented as of this encounter
--- OUTSIDE RECORDS SUMMARY | 2024-07-17 03:08 | XMS_ITS | Encounter Summary ---
Author Organization [facility] Address [address] [place] [address]. [place], [place] [address] [place] [address] Care Team Providers Care Framing Inspector Name Role Phone None, Provider MD Primary Care Provider Unavaila ble Reason for Visit * Reason Comments Respiratory Symptoms c/o cough and cold sx since Tuesday08/23/14. c/o wheezing and coughing Headache Encounter Details Date Type Department Care Team (Late st Contact Info) Description 08/28/2014 8:29 AM INVOICING SPECIALIST - 08/28/2014 11:07 AM [facility] Emergency [place] [facility] [address] [place] [address] Joy Ray, DO [address] [place] [address] Respiratory Symptoms (c/o cough and cold sx since Tuesday08/23/14. 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 on file Not on file documented as of this encounter Last Filed Vital Signs Vital Sign Reading Time Taken Comments Blood Pressure 128/60 08/28/2014 9:44 AM INVOICING SPECIALIST Pulse 83 08/28/2014 9:44 AM INVOICING SPECIALIST Temperature 36.5 ??C (97.7 ??F) 08/28/2014 8:22 AM CS T Respiratory Rate 20 08/28/2014 8:22 AM INVOICING SPECIALIST Oxygen Saturation 94% 08/28/2014 9:44 AM INVOICING SPECIALIST Inhaled Oxygen Concentration - - Weight 116.5 kg (256 lb 13.4 oz) 08/28/2014 8:22 AM INVOICING SPECIALIST Height 172.7 cm (5' 8 ) 08/28/2014 8:22 AM INVOICING SPECIALIST Body Mass Index 39.05 08/28/2014 8:22 AM INVOICING SPECIALIST documented in this encounter Discharge Instructions * Discharge Instructions* Joy Ray, - 08/28/2014 10:09 AM INVOICING SPECIALIST Images from the original note were not included. DISCHARGE INSTRUCTIONS: DIAGNOSIS: Bronchitis and reactive airway PLAN AND FOLLOW-UP: Albuterol inhaler or nebulizer treatment every 4 hours as needed for wheezing or shortness of breath. No smoking or smoke exposure. You should follow-up with your primary physician or physician referral for a recheck and take antibiotics as prescribed. Supportive therapy is the mainstay of treatment. You may get severe unrelenting coughing episodes. You want to maximize your nutrition, rest and hydrate your self well. Return if chest pain, persistent or worsening shortness of breath. There is an increase risk for pneumonia and in young children apneic spells. Return if intractable vomiting or breathing becomes too labored or chest pain is persistent. PRESCRIPTIONS: Current Discharge Medication List START taking these medications Details albuterol sulfate HFA 108 (90 BASE) MCG/ACT inhaler Inhale 2 puffs into the lungs every 4 (four) hours as needed for Wheezing for up to 30 days. Qty: 1 Inhaler, Refills: 0 Class: Print Pharmacy: [id number] (Ph #: [phone]) doxycycline hyclate 100 MG capsule Take 1 capsule by mouth 2 (two) times daily for 10 days. Qty: 20 capsule, Refills: 0 Class: Print Pharmacy: [facility] #[id number] [place] [id number] [facility] (Ph #: [phone]) predniSONE 20 MG tablet Take 3 tablets by mouth daily for 5 days. Qty: 15 tablet, Refills: 0 Class: Print Pharmacy: [facility] #[id number] - [place] [address] [address] AT [facility] (Ph #: [phone]) Take probiotics over the counter starting today and continuing for three weeks post antibiotics. DISCLAIMER: The following discussion took place: the [...] Department if new, persistent or symptoms occur. Acute Bronchitis WHAT YOU SHOULD KNOW: Acute bronchitis is swelling and irritation in the air passages of your lungs. This irritation may cause you to cough or have other breathing problems. Acute bronchitis often starts because of another viral illness, such as a cold or the flu. The illness spreads from your nose and throat to your windpipe and airways. Bronchitis is often called a chest cold. Acute bronchitis lasts about 2 weeks and is usually not a serious illness. INSTRUCTIONS: Medicines: ?? Ibuprofen or acetaminophen: These medicines help lower a fever. They are available without a doctor's order. Ask your primary healthcare provider which medicine is right for you. Ask how much to take and how often to take it. Follow directions. These medicines can cause stomach bleeding if not taken correctly. Ibuprofen can cause kidney damage. Do not take ibuprofen if you have kidney disease,an ulcer, or allergies to aspirin. Acetaminophen can cause liver damage. Do not drink alcohol if you take acetaminophen. ?? Cough medicine: This medicine helps loosen mucus in your lungs and make it easier to cough up. This can help you breathe easier. ?? Inhalers: You may need one or more inhalers to help you breathe easier and cough less. An inhaler gives your medicine in a mist form so that you can breathe it into your lungs. Ask your primary healthcare provider to show you how to use your inhaler correctly. ?? Steroid medicine: Steroid medicine helps open your air passages so you can breathe easier. ?? Take your medicine as directed. Call your healthcare provider if you think your medicine is not helping or if you have side effects. Tell him if you are allergic to any medicine. Keep a list of the medicines, vitamins, and herbs you take. Include the amounts, and when and why you take them. Bring the list or the pill bottles to follow-up visits. Carry your medicine list with you in case of an emergency. How to use an inhaler: ?? Shake the inhaler well to make sure you get the correct amount of medicine per puff. Remove the cover from your inhaler's mouthpiece. If you are using a spacer, connect your inhaler to the flat end of the spacer. ?? Exhale as much air from your lungs as you can. Put the mouthpiece in your mouth past your front teeth and rest it on the top of your tongue. Do not block the mouthpiece opening with your tongue. ?? Breathe in through your mouth at a slow and steady rate. As you do this, press the inhaler to release the puff of medicine. Finish breathing in slowly and deeply as you inhale the medicine. When your lungs are full, hold your breath for 10 seconds. Then breathe out slowly through puckered lips or through your nose. ?? If you need to take more puffs, wait at least 1 minute between each puff. ?? Rinse your mouth with water after you use the inhaler. This may keep you from getting a mouth infection or irritation. ?? Follow the instructions that come with your inhaler to clean it. You should clean your inhaler at least once a week. Ways to care for yourself: ?? Avoid alcohol: Alcohol dulls your urge to cough and sneeze. When you have bronchitis, you need to be able to cough and sneeze to clear your air passages. Alcohol also causes your body to lose fluid. This can make the mucus in your lungs thicker and harder to cough up. ?? Avoid irritants in the air: Do not smoke or allow others to smoke around you. Avoid chemicals, fumes, and dust. Wear a face mask if you must work around dust or fumes. Stay inside on days when airpollution levels are high. If you have allergies, stay inside when pollen counts are high. Avoid aerosol products. This includes spray-on deodorant, bug spray, and hair spray. ?? Avoid the spread of germs: ?? Wash your hands often with soap and water. Carry germ-killing gel with you. You can use the gel to clean your hands when there is no soap and water available. ?? Do not touch your eyes, nose, or mouth unless you have washed your hands first. ?? Always cover your mouth when you cough. Cough into a tissue or your shirtsleeve so you do not spread germs from your hands. ?? Try to avoid people who have a cold or the flu. If you are sick, stay away from others as much as possible. ?? Drink more liquids: Most people should drink at least 8 eight-ounce cups of water a day. You mayneed to drink more liquids when you have acute bronchitis. Liquids help keep your air passages moist and help you cough up mucus. ?? Get more rest: You may feel like resting more. Slowly start to do more each day. Rest when you feel it is needed. ?? Eat healthy foods: Eat a variety healthy foods every day. Your diet should include fruits, vegetables, breads, and protein (such as chicken, fish, and beans). Dairy products (such as milk, cheese,and ice cream) can sometimes increase the amount of mucus your body makes. Ask if you should decrease your intake of dairy products. ?? Use a humidifier: Use a cool mist humidifier to increase air moisture in your home. This may make it easier for you to breathe and help decrease your cough. Follow up with your primary healthcare provider as directed: Write down questions you have so you will remember to ask them during your follow-up visits. Contact your primary healthcare provider if: ?? You have a fever. ?? Your skin becomes itchy or you have a rash after you take your medicine. ?? Your breathing problems do not go away or get worse. ?? Your cough does not get better with treatment. ?? You cough up blood. ?? You have questions or concerns about your condition or care. Return to the emergency department if: ?? You faint. ?? Your lips or fingernails turn blue. ?? You feel like you are not getting enough air when you breathe. ?? You have swelling of your lips, tongue, or throat that makes it hard to breathe or swallow. ?? 2013 [employer] Information is for End User's use only and may not be sold, redistributed or otherwise used for commercial purposes. All illustrations and images included in CareNotes?? are the copyrighted property of [employer], [employer]. or [employer]. The above information is an surgical aides teacher only. It is not intended as medical advice for individual conditions or treatments. Talk to your doctor, nurse or pharmacist before following any medical regimen to see if it is safe and effective for you. ICING SPECIALIST documented in this encounter Medications at Time of Discharge albuterol sulfate HFA 108 (90 BASE) MCG/ACT inhaler Inhale 2 puffs into the lungs every 4 (four) hours as needed for Wheezing for up to 30 days. 1 Inhaler 0 08/28/2014 09/27/2014 alprazolam 1 MG tablet Take 1.5 mg by mouth nightly as needed for Sleep. 12/22/2017 furosemide 40 MG tablet Take 40 mg by mouth daily. 12/22/2017 lamotrigine (LAMICTAL) 150 MG tablet Take 150 mg by mouth daily. 12/22/2017 levofloxacin (LEVAQUIN) 500 MG tablet Take 1 tablet by mouth daily for 10 days. 10 tablet 0 08/28/2014 09/07/2014 predniSONE 20 MG tablet Take 3 tablets by mouth daily for 5 days. 15 tablet 0 08/28/2014 09/02/2014 trazodone 100 MG tablet Take 100 mg by mouth nightly at bedtime. 12/22/2017 documented as of this encounter ED Notes * Joy Ray DO - 08/28/2014 8:48 AM CST History Chief Complaint Patient presents with ??? Respiratory Symptoms c/o cough and cold sx since Tuesday08/23/14. c/o wheezing and coughing ??? Headache HPI The patient is a 44-year-old female with 5 days of coughing and wheezing and sinus pressure was with a sinus headache. She has a lot of drainage down the back of her throat was coughing up yellow-green sputum. She has no chest pain or chest pressure abdominal pain or back pain. No fevers or chills.She states is getting worse not better. Past Medical History Diagnosis Date ??? Rheumatoid arthritis(714.0) 1987 ??? Excessive or frequent menstruation ??? Polycystic kidney, unspecified type dx 2002 or 2003 ??? Congenital cystic disease of liver ??? Endometriosis dx with surgery ??? Gastric ulcer, unspecified as acute or chronic, without mention of hemorrhage or perforation 2004 dx with endoscopy - placed on Protonix [...] Start Date End Date Taking? Authorizing Provider alprazolam 1 MG tablet Take 1.5 mg by mouth nightly as needed for Sleep. Yes Doc Abstract furosemide 40 MG tablet Take 40 mg by mouth daily. Yes Doc Abstract lamotrigine (LAMICTAL) 150 MG tablet Take 150 mg by mouth daily. Yes Doc Abstract trazodone 100 MG tablet Take 100 mg by mouth nightly at bedtime. Yes Doc Abstract Allergies Allergen Reactions ??? Ancef [Cefazolin Sodium] Shortness of Breath ??? Dicloxacillin Itching ??? Sulfa Drugs Rash Review of Systems Review of Systems Constitutional: Negative. HENT: Positive for congestion, rhinorrhea and sinus pressure. Eyes: Negative. Respiratory: Positive for cough. Cardiovascular: Negative. Gastrointestinal: Negative. Genitourinary: Negative. Musculoskeletal: Negative. Skin: Negative. Neurological: Negative. Psychiatric/Behavioral: Negative. Physical Exam Filed Vitals: 08/28/14 0822 08/28/14 0944 BP: 134/68 128/60 Pulse: 73 83 Temp: 97.7 ??F (36.5 ??C) TempSrc: Oral Resp: 20 Height: 5' 8 (1.727 m) Weight: 116.5 kg (256 lb 13.4 oz) SpO2: 97% 94% Physical Exam Constitutional: She is oriented to person, place, and time. She appears well- developed and well-nourished. HENT: Head: Normocephalic and atraumatic. Eyes: Conjunctivae and EOM are normal. Pupils are equal, round, and reactive to light. Neck: Normal range of motion. Neck supple. Cardiovascular: Normal rate and regular rhythm. Pulmonary/Chest: She is in respiratory distress. She has wheezes. Abdominal: Soft. Musculoskeletal: Normal range of motion. Neurological: She is alert and oriented to person, place, and time. Skin: Skin is warm and dry. Psychiatric: She has a normal mood and affect. Her behavior is normal. ED Course Procedures MDM Number of Diagnoses or Management Options Bronchitis: Reactive airway disease: Diagnosis management comments: EMERGENCY DEPARTMENT PRESENTATION AND TREATMENT: Vangie Yuen is 44-year-old female who presents with a cough and wheezing for the last 5-6 days. She is a green-yellow sputum production. She was given a DuoNeb albuterol nebs and another albuterol med for continued wheezing with improvement. She was put on prednisone. She'll be discharged on doxycycline and albuterol and prednisone. RESPONSE TO TREATMENT: Improved. PLAN: Discharge with follow-up. EMERGENCY DEPARTMENT MEDICAL DECISION MAKING: Prior to obtaining the patients history, performing the physical exam and reviewing the diagnostics, initial considerations based on the presenting problem included, but are not limited to: Acute Bronchitis, Bronchiolitis, COPD, Cystic fibrosis, Gastroesophageal reflux, CHF, Panic attack, Pneumothorax, Inhalation injury, Tumor, mucus plugging, vocal cord dysfunction, Asthma, Pneumonia. After the evaluation in the Emergency Department and reviewing diagnostics, my clinical Impression/Diagnosis is bronchitis, reactive airway disease. height is 5' 8 (1.727 m) and weight is 116.5 kg (256 lb 13.4 oz). Her oral temperature is 97.7 ??F(36.5 ??C). Her blood pressure is 128/60 and her pulse is 83. Her respiration is 20 and oxygen saturation is 94%. The patient's condition was stable during the Emergency Department evaluation. DIAGNOSITICS: Joy Ray DO 08/28/14 1009 ICING SPECIALIST documented in this encounter Plan of Treatment Not on file documented as of this encounter Visit Diagnoses Diagnosis Bronchitis- Primary Bronchitis, not specified as acute or chronic Reactive airway disease (HHS/HCC) Unspecified asthma documented in this encounter Administered Medications Inactive Administered Medications - up to 3 most recent administrations Medication Order MAR Action Action Date Dose Rate Site albuterol (PROVENTIL) (2.5 MG/3ML) 0.083% nebulizer solution 2.5 mg 2.5 mg, Nebulization, Once, 1 dose, On Tue08/28/14 at 0915 Given 08/28/2014 9:04 AM INVOICING SPECIALIST 2.5 mg albuterol (PROVENTIL) (2.5 MG/3ML) 0.083% nebulizer solution 2.5 mg 2.5 mg, Nebulization, Once, 1 dose, On Tue08/28/14 at 1030 Given 08/28/2014 10:31 AM INVOICING SPECIALIST 2.5 mg ipratropium-albuterol (DUONEB) 0.5-2.5 (3) MG/3ML nebulizer solution 3 mL 3 mL, Nebulization, Once, 1 dose, On Tue08/28/14 at 0915 Given 08/28/2014 9:00 AM INVOICING SPECIALIST 3 mLs predniSONE (DELTASONE) tablet 60 mg 60 mg, Oral, Once, 1 dose, On Tue08/28/14 at 0915 Given 08/28/2014 8:57 AM INVOICING SPECIALIST 60 mg documented in this encounter Active and Recently Administered Medications Times are shown in INVOICING SPECIALIST. Scheduled Medication Order 08/26/2014 08/27/2014 08/28/2014 albuterol (PROVENTIL) (2.5 MG/3ML) 0.083% nebulizer solution 2.5 mg (COMPLETED) 2.5 mg, Nebulization, Once, 1 dose, On Tue08/28/14 at 0915 0904 (Given - Provid er: Koki Galeana RRT) albuterol (PROVENTIL) (2.5 MG/3ML) 0.083% nebulizer solution 2.5 mg (COMPLETED) 2.5 mg, Nebulization, Once, 1 dose, On Tue08/28/14 at 1030 1031 (Given - Provid er: Yuliet Griffin RRT) ipratropium-albuterol (DUONEB) 0.5-2.5 (3) MG/3ML nebulizer solution 3 mL (COMPLETED) 3 mL, Nebulization, Once, 1 dose, On Tue08/28/14 at 0915 0900 (Given - Provid er: Koki Galeana RRT) predniSONE (DELTASONE) tablet 60 mg (COMPLETED) 60 mg, Oral, Once, 1 dose, On Tue08/28/14 at 0915 0857 (Given - Provid er: Paula Gan RN) documented in this encounter Care Teams Framing Inspector Relationship Specialty Start Date End Date None, Provider, PCP - General 03/11/14 documented as of this encounter
--- OUTSIDE RECORDS SUMMARY | 2024-07-17 03:08 | XMS_ITS | Encounter Summary ---
Author Organization [facility] Address [address] [place] [address]. [place], [place] [address] [place] [address] Care Team Providers Care Boot And Shoe Repairman Name Role Phone Unavailable Primary Care Provider Unavailabl e Reason for Visit * Reason Onset Date Comments Medication Problem 12/30/2008 Rx for Microg estin not at [facility] Encounter Details Date Type Department Care Team (Late st Contact Info) Description 12/30/2008 Nurse Triage [facility] [address] [place] [address] Koki Mosqueda, nutrition internship Problem (Rx for Microgestin not at [facility] 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 Negative: all questions in Call PCP Now section. Negative: all questions in Call PCP within 24 Hours section. Negative: all questions in Call Pharmacist within 24 Hours section. Affirmative: Caller has medication question only, adult not sick, and triager answers question Disposition of Health Information only suggested. SEE PREV CALL SUMMARY WHERE [facility] RN CALLED IN RX FOR MICROGESTIN 08/06 FOR ONE MONTH, PER PROTOCOL. ORIGINAL RX PER ADRIANA YOUNG NP, WHO IS NO LONGER WITH [facility]. RX RE-CALLED/FAXED @ [address] AT [facility]/, WITH PRESCRIBING PROVIDER PCP, DR. GRACIA. PT INFORMED. PT DUE FOR PE, BUT STATES SHE IS MOVING OUT OF STATE. THANKS. documented in this encounter Plan of Treatment Not on file documented as of this encounter Visit Diagnoses Not on filedocumented in this encounter
--- OUTSIDE RECORDS SUMMARY | 2024-07-17 03:08 | XMS_ITS | Encounter Summary ---
Author Organization [facility] Address [address] [place] [address]. 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 [place], [place] [id number] PCP - General 10/30/09 10/30/09 None, MD Aurelio [facility] ?? [place] [address] PCP - General 03/11/14 Bakari Vasquez DO [address] [place] [address] PCP - General 01/31/13 03/10/14 Bakari Vasquez DO [address] [place] [address] PCP - General 01/25/13 01/30/13 Bakari Vasquez DO [address] [place] [address] PCP - General 01/21/13 01/24/13 Bakari Vasquez DO [address] [place] [address] PCP - General 01/09/13 01/20/13 Bakari Vasquez DO [address] [place] [address] PCP - General 01/03/13 01/08/13 Bakari Vasquez DO [address] [place] [address] PCP - General 01/01/13 01/02/13 Bakari Vasquez DO [address] [facility] [address] [place] [address] PCP - General 12/25/12 12/31/12 documented as of this encounter
--- OUTSIDE RECORDS SUMMARY | 2024-07-17 03:08 | XMS_ITS | Encounter Summary ---
Author Organization [facility] Address [address] [place] [address]. 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 [place] [address] PCP - General 10/30/09 10/30/09 None, Aurelio, [address] ?? [place] [address] PCP - General 03/11/14 Bakari Vasquez DO [address] [place] [address] PCP - General 01/31/13 03/10/14 Bakari Vasquez DO [address] [place] [address] PCP - General 01/25/13 01/30/13 Bakari Vasquez DO [address] [place] [address] PCP - General 01/21/13 01/24/13 Bakari Vasquez DO [address] [place] [address] PCP - General 01/09/13 01/20/13 Bakari Vasquez DO [address] [place] [address] PCP - General 01/03/13 01/08/13 Bakari Vasquez DO [address] [place] [address] PCP - General 01/01/13 01/02/13 Bakari Vasquez DO [address] [place] [address] [address] [place] [address] PCP - General 12/25/12 12/31/12 documented as of this encounter
--- OUTSIDE RECORDS SUMMARY | 2024-07-17 03:08 | XMS_ITS | Encounter Summary ---
Author Organization [facility] Address [address] [place] [address]. 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 on file Not on file documented as of this encounter Plan of Treatment Not on file documented as of this encounter Visit Diagnoses Diagnosis Major depressive disorder, recurrent episode, moderate (CMS/HCC HHS/HCC) Major depressive disorder, recurrent episode, moderate documented in this encounter Care Teams Radio Talk Show Host Relationship Specialty Start Date End Date None, Provider, PCP - General 03/11/14 Bakari Vasquez DO [address] [facility] [address] [place] [address] PCP - General 01/31/13 03/10/14 Bakari Vasquez DO [address] [facility] [address] [place] [address] PCP - General 01/25/13 01/30/13 Bakari Vasquez DO [address] [facility] [address] [place] [address] PCP - General 01/21/13 01/24/13 Bakari Vasquez DO [address] [facility] [address] [place] [address] PCP - General 01/09/13 01/20/13 documented as of this encounter
--- OUTSIDE RECORDS SUMMARY | 2024-07-17 03:08 | XMS_ITS | Encounter Summary ---
Author Organization [facility] Address [address] [place] [address]. 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 Not on file Not on file Not on file documented as of this encounter Plan of Treatment Not on file documented as of this encounter Visit Diagnoses Not on filedocumented in this encounter Care Teams Women'S Lacrosse Coach Relationship Specialty Start Date End Date None, Provider, PCP - General 03/11/14 Bakari Vasquez DO [address] [place] [address] PCP - General 01/31/13 03/10/14 Bakari Vasquez DO [address] [place] [address] PCP - General 01/25/13 01/30/13 Bakari Vasquez DO [address] [place] [address] PCP - General 01/21/13 01/24/13 Bakari Vasquez DO [address] [place] [address] PCP - General 01/09/13 01/20/13 Bakari Vasquez DO [address] [place] [address] PCP - General 01/03/13 01/08/13 Bakari Vasquez DO [address] [place] [address] PCP - General 01/01/13 01/02/13 Bakari Vasquez DO [address] [place] [address] PCP - General 12/25/12 12/31/12 documented as of this encounter
--- OUTSIDE RECORDS SUMMARY | 2024-07-17 03:08 | XMS_ITS | Encounter Summary ---
Author Organization [facility] Address [address] [place] [address]. [place], [place] [id number] [place] [address] Care Team Providers Care Soap Inspector Name Role Phone Unavailable Primary Care Provider Unavailabl e Reason for Visit * Reason Onset Date Comments Refill Request 02/18/2009 [facility]([address] [place] [id number]) Encounter Details Date Type Department Care Team (Late st Contact Info) Description 02/18/2009 Telephone [facility] [address] [facility] [place] [address] Raquel Gauthier MD [address] ?? 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 Can't get in sooner and needs refill. Was given last refill by Dr. Gauthier and is requesting 1 more to get through until appt. Per pt can put on hold at [facility] and then pt will get trasnferred to pharamcy down there. Will give 1 more month as requested. Discussed with pt no further refills. Pt verbalized understanding. * Koki Coyle - 02/18/2009 11:27 AM CDT Pt's last physical was in 12/23. Does through [facility] office. Needs to get refill from them. No physicalappt scheduled. Left msg for pt to call back to discuss. documented in this encounter Plan of Treatment Not on file documented as of this encounter Visit Diagnoses Not on filedocumented in this encounter
--- OUTSIDE RECORDS SUMMARY | 2024-07-17 03:08 | XMS_ITS | Encounter Summary ---
Author Organization [facility] Address [address] [place] [address]. [place] [id number] [place] [id number] Care Team Providers Care Technical Laboratory Asst Name Role Phone None, Provider Primary Care Provider Unavaila ble Reason for Referral * (Emergency) - Closed Specialty Diagnoses / Procedures Referred By Contac t Referred To Contact Procedures CT ABD+PEL W CON Nika Anderson MD [address] [place] [phone] Phone: tel: fax: Referral ID Status Reason Start Date Expiration Date Visits Re quested Visits Authorized [id number] Closed 03/16/2014 04/16/2015 1 1 Reason for Visit * Reason Comments Abdominal Pain Encounter Details Date Type Department Care Team (Late st Contact Info) Description 03/16/2014 1:11 AM CDT - 03/16/2014 5:55 AM CDT Emergency [facility] [address] [place] [id number] Nika Anderson MD [address] [place] [phone] Abdominal Pain Discharge Disposition: Home or Self Care (Routine [...] 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 Not on file Not on file documented as of this encounter Last Filed Vital Signs Vital Sign Reading Time Taken Comments Blood Pressure 114/82 03/16/2014 4:58 AM CDT Pulse 75 03/16/2014 4:58 AM CDT Temperature 36.7 ??C (98 ??F) 03/16/2014 1:08 AM CDT Respiratory Rate 16 03/16/2014 4:58 AM CDT Oxygen Saturation 97% 03/16/2014 4:58 AM CDT Inhaled Oxygen Concentration - - Weight 113.9 kg (251 lb) 03/16/2014 1:08 AM CDT Height 172.7 cm (5' 8 ) 03/16/2014 1:08 AM CDT Body Mass Index 38.16 03/16/2014 1:08 AM CDT documented in this encounter Discharge Instructions * Discharge Instructions* Nika Anderson MD - 03/16/2014 5:24 AM CDT Acute Abdominal Pain WHAT YOU SHOULD KNOW: Acute abdominal pain can last up to 3 days. The pain starts suddenly and gets worse quickly. INSTRUCTIONS: Medicines: ?? Pain medicine: You may be given pain medicine to take away or decrease pain. Do not wait until the pain is severe before you take your medicine. ?? Take your medicine as directed: Call your primary healthcare provider or stomach specialist if you think your medicine is not helping, or if you have side effects. Tell him if you are taking any vitamins, herbs, or other medicines. Keep a list of the medicines you take. Include the medicine given to you today. Bring the list or the pill bottles to follow-up visits. Diet: Ask your primary healthcare provider if you need to change what you eat. He may tell you to avoid foods that can cause gas and pain. Some examples are cabbage, grapes, and milk. Pain medicine may make it hard for you to have a bowel movement. Foods high in fiber can make it easier. Some examples are beans, vegetables, and high-fiber cereals. Follow up with your primary healthcare provider or stomach specialist: Write down any questions youhave so you remember to ask them in your follow-up visits. Treatment may help keep you from developing long-term pain. Contact your primary healthcare provider if: ?? You have a fever. ?? You have new symptoms, or your symptoms get worse. ?? You are not able to have a bowel movement. ?? You have questions or concerns about your pain, medicine, or care. Return to the emergency department if: ?? Your abdominal pain does not get better or gets worse within 8 hours. ?? You have cool, clammy, pale skin. ?? You are dizzy, or you faint. ?? You are thirsty and cold. Your eyes and mouth are dry. When you urinate, little or no urine comes out. ?? You have dark bowel movements, or you throw up blood. ?? You have a hard time breathing. Your breaths are fast and shallow. ?? You have a fast heartbeat. ?? The pain does not go away after you take your medicine. Copyright ?? 2010. [employer]. All rights reserved. Information is for End User's use only andmay not be sold, redistributed or otherwise used for commercial purposes. The above information is an medicaid analyst only. It is not intended as medical advice for individual conditions or treatments. Talk to your doctor, nurse or pharmacist before following any medical regimen to see if it is safe and effective for you. documented in this encounter Medications at Time of Discharge docusate sodium 100 MG capsule Take 1 capsule by mouth 2 (two) times daily for 10 days. 10 capsule 0 03/16/2014 03/26/2014 furosemide 40 MG tablet Take 40 mg by mouth daily. 08/28/2014 hydrocodone-acet aminophen 5-325 MG per tablet Take 1 tablet by mouth every 6 (six) hours as needed. 12 tablet 0 03/16/2014 08/28/2014 sertraline (ZOLOFT) 100 MG tablet Take 150 mg by mouth daily. 08/28/2014 SUMATRIPTAN SUCCINATE 6 MG/0.5ML SC KIT TO USE DIRECTED 1 0 06/26/2008 08/28/2014 documented as of this encounter ED Notes * Zabrina Chambers RN - 03/16/2014 5:54 AM CDT Re-exam per ECMD. Pt discharged home at this time. * Ana Mejia RN - 03/16/2014 4:15 AM CDT Out to CT * Nika Anderson MD - 03/16/2014 1:44 AM CDT eMERGENCY dEPARTMENT eNCOUnter CHIEF COMPLAINT Chief Complaint Patient presents with ??? Abdominal Pain HPI Vangie Yuen is a 43-year-old female who presents with complaint of right sided mid abdominalpain. No fever or chills. Denies diarrhea. No vomiting. Has had for three days. She denies recent travel. Although moved up to [place] a few months ago. Denies chest pain, abdominal Pain is sharp and achy, 7/10, worse if she coughs or with deep breath - she feels it in the lower abdomen , radiates into the lower right abdomen. REVIEW OF SYSTEMS See HPI for further details. Review of systems otherwise negative. PAST MEDICAL HISTORY Past Medical History Diagnosis Date ??? Rheumatoid [...] disorder, not elsewhere classified slight anxiety assoc SURGICAL HISTORY Past Surgical History Procedure Laterality Date ??? Laparoscopic cholecystectomy 06/18/05 CHOLECYSTECTOMY, LAPAROSCOPIC ??? delivery only ONLY, LOW CERVICAL ??? Endoscopy 2005 dx ulcers CURRENT MEDICATIONS Current Outpatient Rx Name Route Sig Dispense Refill ??? sertraline (ZOLOFT) 100 MG tablet Oral Take 150 mg by mouth daily. ??? furosemide 40 MG tablet Oral Take 40 mg by mouth daily. ??? SUMATRIPTAN SUCCINATE 6 MG/0.5ML SC KIT Subcutaneous TO USE DIRECTED 1 0 ALLERGIES Allergies Allergen Reactions ??? Ancef (Cefazolin Sodium) Shortness of Breath ??? Dicloxacillin Itching ??? Sulfa Drugs Rash FAMILY HISTORY Family History Problem Relation Age of Onset [...] nodular sclerosing hodgkins lymphome dx age 16 SOCIAL HISTORY History Social History ??? Marital Status: Spouse Name: N/A Number of Children: 2 ??? 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 Smoking status: Never Smoker ??? Smokeless tobacco: Not on file ??? Alcohol Use: No ??? Drug Use: No ??? Sexual Activity: Yes Partners: Male Control/ Protection: Spermicide Other Topics Concern ??? Service No ??? Blood Transfusions No ??? Caffeine Concern Yes 1-2 cans soda per day ??? Occupational Exposure No ??? Hobby Hazards No ??? Sleep Concern Yes occ ??? Stress Concern Yes stress with daughters dx ??? Weight Concern No ??? Special Diet Yes weight watchers ??? Back Care No ??? Exercise Yes walk ??? Seat Belt Yes ??? Self-Exams No Social History Narrative ??? No narrative on file PHYSICAL EXAM VITAL SIGNS: Filed Vitals: 03/16/14 0108 BP: 140/84 Pulse: 94 Temp: 98 ??F (36.7 ??C) TempSrc: Oral Resp: 18 Height: 5' 8 (1.727 m) Weight: 113.853 kg (251 lb) SpO2: 97% Constitutional: Well developed, well nourished, no acute distress, non-toxic appearance Eyes: PERRL, conjunctiva normal HENT: Atraumatic, external ears normal, nose normal, oropharynx moist. Neck supple Respiratory: No respiratory distress, normal breath sounds Cardiovascular: Normal rate, normal rhythm, no murmurs, no gallops, no rubs GI: Abdomen is soft, there is some right mid abdominal tenderness. No rebound masses or guarding. : No cva tenderness Musculoskeletal: No edema Integument: Well hydrated Neurologic: Alert & oriented x 3, no focal deficits EKG Normal sinus rhythm, no acute st-twave changes to suggest ischemia. Rhythm strip reveals a normal sinus rhythm RADIOLOGY/PROCEDURES CT abd/pelvis ED COURSE & MEDICAL DECISION MAKING Pertinent Labs & Imaging studies reviewed. (See chart for details) Results for orders placed during the hospital encounter of 03/16/14 XR CHEST PORTABLE Narrative: STVs Portable chest x-ray 03/16/2014. 0140 hours. Comparison: Chest x-ray March 11. Clinical indication: Shortness of breath. Findings: Atelectasis is noted right lung base. Lung volumes are low and lower the previous study. There is no pneumothorax or effusion. Cardiac and mediastinal silhouettes are stable. IMPRESSION: Linear changes right lung base most likely atelectasis. Dictated By: Jose Angel Mei Dictated On: 03/16/2014 06:27:06 Electronically Signed By: Jose Angel Mei Electronically Signed on: 03/16/2014 06:28:42 CBC W/DIFF AUTOMATED Result Value Range WBC 9.7 3.8 - 10.7 k/uL RBC 4.44 3.80 - 5.20 m/uL HGB 12.8 12.0 - 16.0 g/dL HCT 38.7 35.0 - 46.0 % MCV 87 80.0 - 98.0 fl MCH 28.8 25.0 - 34.0 pg MCHC 33.1 32.0 - 36.0 g/dL RDW 14.3 11.0 - 15.0 % RDW-SD 44.8 36.4 - 46.3 fL PLT 221 140 - 440 k/uL MPV 11.50 9.2 - 12.7 fl DIFFERENTIAL TYPE AUTO-DIFF % NEUTROPHILS 60.3 % LYMPHOCYTES 30.4 % MONOCYTES 5.2 % EOSINOPHILS 2.8 % BASOPHILS 0.7 % IMMATURE GRANS 0.6 ABS. NEUTROPHILS 5.8 1.6 - 7.2 k/uL ABS. LYMPHOCYTES 2.9 0.9 - 4.0 k/uL ABS. MONOCYTES 0.5 0.2 - 0.9 k/uL ABS. EOSINOPHILS 0.3 0.0 - 0.5 k/uL ABS. BASOPHILS 0.1 0.0 - 0.2 k/uL ABS. IMMATURE GRANULOCYTES 0.1 (*) 0.0 k/uL COMPREHENSIVE METABOLIC PANEL Result Value Range SODIUM 140 136 - 145 mmol/L POTASSIUM 3.3 (*) 3.5 - 5.1 mmol/L CHLORIDE 105 98 - 107 mmol/L CO2 27 21 - 32 mmol/L ANION GAP 8 5 - 15 mmol/L BUN 10 7 - 18 mg/dL CREATININE 1.0 0.6 - 1.0 mg/dL BUN CREATININE RATIO 10.0 10 - 20 :1 eGFR Non-Afr. Amer. >60 >60 mls/min. eGFR Afr. Amer. >60 >60 mls/min. GLUCOSE 131 (*) 70 - 99 mg/dL CALCIUM 8.8 8.5 - 10.1 mg/dL TOTAL PROTEIN 7.2 6.4 - 8.5 g/dL ALBUMIN 3.2 3.1 - 5.0 g/dL TOTAL BILIRUBIN 0.4 0.2 - 1.0 mg/dL ALK PHOS 97 45 - 117 U/L AST 17 15 - 37 U/L ALT 20 12 - 78 U/L CK (CPK) Result Value Range CPK 86 26 - 192 U/L CPK, MB FRACTION Result Value Range MB <0.5 (*) 0.5 - 3.6 ng/mL TROPONIN, QUANT Result Value Range TROPONIN I <0.02 <0.04 ng/mL LIPASE Result Value Range LIPASE 85 73 - 393 U/L URINALYSIS, AUTO, COMPLETE Result Value Range COLOR YELLOW TRANSPARENCY HAZY (*) CLER U SP. GRAVITY 1.015 1.001 - 1.035 U PH 5.0 5.0 - 9.0 U PROTEIN NEGATIVE NEG mg/dL U GLUCOSE NEGATIVE NEG mg/dL U KETONES NEGATIVE NEG mg/dL Urine Bilirubin NEGATIVE NEG U BLOOD NEGATIVE NEG UROBILINOGEN <2.0 <2.0 mg/dL NITRITES NEGATIVE NEG LEUK. ESTERASE TRACE (*) NEG Collection Method: URINE, CLEAN VOIDED RBC/HPF 0-2 ZT2 /hpf WBC/HPF 0-2 ZT2 /hpf EPI/HPF 3-5 (*) ZT2 /hpf BACTERIA (URINE) FEW MUCUS PRESENT CT ABD+PEL W CON Narrative: STVs CT scan abdomen and pelvis with IV contrast 03/16/2014. Comparison: Ultrasound. Clinical indication: Pain. Findings: Many liver cysts are identified. Gallbladder surgically absent. Kidney cysts are present. There is no significant acute abnormality within the spleen, pancreas, adrenal glands, retroperitoneum. Thereis no bowel obstruction. Appendix is normal. Generous stool is noted within the right colon suggesting right colonic constipation. No bowel obstruction or free fluid or fluid collection is seen. IMPRESSION: No acute appendicitis. Right colonic constipation. Polycystic kidney and hepatic disease. Dictated By: Jose Angel Mei Dictated On: 03/16/2014 04:51:40 Electronically Signed By: Jose Angel Mei Electronically Signed on: 03/16/2014 04:54:02 ECG 12-LEAD Result Value Range EKG Value: [facility] ED Test Date: 2014-03-16 Pat Name: VANGIE YUEN Department: 55 Room: [place] Gender: Female Yarn Inspector: [id number] : 1970 Requested By: NIKA ANDERSON Order Number: [id number] Reading MD: Nika Anderson Measurements Intervals [place] Rate: 82 P: 31 WA: 190 QRS: 7 QRSD: 98 T: 31 QT: 403 QTc: 473 Interpretive Statements SINUS RHYTHM CULTURE URINE Result Value Range Spec. Description URINE, CLEAN VOIDED Special Requests: NO SPECIAL REQUEST Culture Result: NO GROWTH 1 DAY Report Status FINAL 03/17/2014 Patient is feeling overall much improved She will be discharge with vicodin for pain control Her pain is in the right mid to lower abdomen She has a normal CT abd/pelvis except for cyst on kidney likely related to PCKD She will follow-up with her primary physician and certainly will return here for any acute worsening of symptoms. FINAL IMPRESSION 1. Abdominal pain 2. History of polycystic kidney disease Nika Anderson MD 03/20/14 0113 * Ana Mejia RN - 03/16/2014 1:11 AM CDT Right lower abdominal pain since Tuesday, complaint of nausea, denies vomiting. Denies diarrhea or constipation. Denies injury. Denies urinary symptoms. documented in this encounter Plan of Treatment Not on file documented as of this encounter Procedures Procedure Name Priority Date/Time Associated Diagnosis Comments URINE BACTERIA CULTURE STAT 4 5:[address] ABD+PEL W CON STAT 03/16/2014 4:29 AM CDT URINALYSIS, AUTO, COMPLETE STAT 03/16/2014 1:57 AM CDT XR CHEST PORTABLE STAT 03/16/2014 1:4 5 AM CDT ECG 12-LEAD STAT 03/16/2014 1:34 AM CDT COMPREHENSIVE METABOLIC PANEL STAT 03/16/2014 1:29 AM CDT CKMB(MB FRACTION ONLY) STAT 4 1:29 AM CDT CBC W/DIFF AUTOMATED STAT 03/16/2014 1:29 AM CDT TROPONIN, QUANT STAT 03/16/2014 1:29 AM CDT LIPASE STAT 03/16/2014 1:29 AM CDT CK (CPK) STAT 03/16/2014 1:29 AM CDT documented in this encounter Results * CULTURE URINE (03/16/2014 5:31 AM CDT) SPEC DESCRIPTION URINE, CLEAN VOIDED [facility] SPECIAL REQUESTS NO SPECIAL REQUEST [facility] CULTURE RESULT NO GROWTH 1 DAY [facility] REPORT STATUS FINAL 03/17/2014 [facility] URINE, CLEAN VOIDED 03/16/2014 5:31 AM CDT 03/16/2014 7:53 AM CDT us Nika Anderson MD MICROBIOLOGY - GENERAL ORDERABLE S Final Result [facility] [address] [place] [address] * CT ABD+PEL W CON (03/16/2014 4:29 AM CDT) Anatomical Region Laterality Modality Abdomen Computed Tomogra phy 03/16/2014 4:29 AM CDT 03/16/2014 4:51 AM CDT Narrative 03/16/2014 4:[address] scan abdomen and pelvis with IV contrast 03/16/2014. Comparison: Ultrasound. Clinical indication: Pain. Findings: Many liver cysts are identified. Gallbladder surgically absent. Kidney cysts are present. There is no significant acute abnormality within the spleen, pancreas, adrenal glands, retroperitoneum. There is no bowel obstruction. Appendix is normal. Generous stool is noted within the right colon suggesting right colonic constipation. No bowel obstruction or free fluid or fluid collection is seen. IMPRESSION: No acute appendicitis. Right colonic constipation. Polycystic kidney and hepatic disease. Dictated By: Jose Angel Mei Dictated On: 03/16/2014 04:51:40 Electronically Signed By: Jose Angel Mei Electronically Signed on: 03/16/2014 04:54:02 Procedure Note Jose Angel Mei MD - 03/16/[address] scan abdomen and pelvis with IV contrast 03/16/2014. Comparison: Ultrasound. Clinical indication: Pain. Findings: Many liver cysts are identified. Gallbladder surgically absent. Kidneycysts are present. There is no significant acute abnormality within thespleen, pancreas, adrenal glands, retroperitoneum. There is no bowelobstruction. Appendix is normal. Generous stool is noted within the rightcolon suggesting right colonic constipation. No bowel obstruction or freefluid or fluid collection is seen. IMPRESSION: No acute appendicitis. Right colonic constipation. Polycystic kidney and hepatic disease. Dictated By: Jose Angel Mei Dictated On: 03/16/2014 04:51:40 Electronically Signed By: Jose Angel Mei Electronically Signed on: 03/16/2014 04:54:[address] Final Result * (ABNORMAL) URINALYSIS, AUTO, COMPLETE (03/16/2014 1:57 AM CDT) COLOR (U) YELLOW [facility] TRANSPARENCY HAZY(A) CLER [facility] SPECIFIC GRAVITY (U) 1.015 1.001 - 1.035 [facility] U PH 5.0 5.0 - 9.0 [facility] PROTEIN (U) NEGATIVE NEG mg/dL [facility] GLUCOSE (U) NEGATIVE NEG mg/dL [facility] KETONES MG/DL (U) NEGATIVE NEG mg/dL [facility] BILIRUBIN (U) NEGATIVE NEG [facility] U BLOOD NEGATIVE NEG [facility] UROBILINOGEN <2.0 <2.0 mg/dL [facility] NITRITES NEGATIVE NEG [facility] LEUK ESTERASE (U) TRACE(A) NEG [facility] COLLECTION METHOD URINE, CLEAN VOIDED [facility] RBC/HPF 0-2 ZT2 /hpf [facility] WBC/HPF 0-2 ZT2 /hpf [facility] EPI/HPF 3-5(A) ZT2 /hpf [facility] BACTERIA (U) FEW [facility] MUCUS PRESENT [facility] Urine specimen (specimen) (URINE, CLEAN VOIDED) 03/16/2014 1:57 AM CDT 03/16/2014 2:02 AM CDT Nika Anderson MD URINE ORDERABLES Final Result [facility] [address] [place] [address] * XR CHEST PORTABLE (03/16/2014 1:45 AM CDT) Anatomical Region Laterality Modality Chest Computed Radiogr aphy 03/16/2014 1:45 AM CDT 03/16/2014 6:27 AM CDT Narrative 03/16/2014 6:27 AM CDT STVs Portable chest x-ray 03/16/2014. 0140 hours. Comparison: Chest x-ray March 11. Clinical indication: Shortness of breath. Findings: Atelectasis is noted right lung base. Lung volumes are low and lower the previous study. There is no pneumothorax or effusion. Cardiac and mediastinal silhouettes are stable. IMPRESSION: Linear changes right lung base most likely atelectasis. Dictated By: Jose Angel Mei Dictated On: 03/16/2014 06:27:06 Electronically Signed By: Jose Angel Mei Electronically Signed on: 03/16/2014 06:28:42 Procedure Note Jose Angel Mei MD - 03/16/2014 STVs Portable chest x-ray 03/16/2014. 0140 hours. Comparison: Chest x-ray March 11. Clinical indication: Shortness of breath. Findings: Atelectasis is noted right lung base. Lung volumes are low andlower the previous study. There is no pneumothorax or effusion. Cardiacand mediastinal silhouettes are stable. IMPRESSION: Linear changes right lung base most likely atelectasis. Dictated By: Jose Angel Mei Dictated On: 03/16/2014 06:27:06 Electronically Signed By: Jose Angel Mei Electronically Signed on: 03/16/2014 06:28:42 Nika Anderson MD GENERAL IMAGING Final Result * Electrocardiogram, 12-lead (03/16/2014 1:34 AM CDT) Pathologist [facility] EKG <!--EPICS--><H 3> [facility]</[facility]>
?

<b>Mary Ellen t Date: ?2014-03-16</ b>
Pat Name: ? VANGIE YUEN ? Department: ?? 55
? Room: ? [place]
Gender: ? <b><font color='#[id number] '>Female</font ></b> ? Yarn Inspector: ?? [id number]
: ?1970 ? Requested By: NIKA ANDERSON
Order Number: [id number] ? Reading MD: ?? Nika Anderson

< b>Measurements </b>
Interv als ?[place] ?
Rate: ? 82 ? P: ?31
WA: ? 190 ?QRS: ?7
QRSD: ? 98 ? T: ?31
QT: ? 403 ?
QTc: ?473 ?

<b>I nterpretive Statements</b>
SINUS RHYTHM

<!--EPICE-- > [facility] RAD[facility] 03/16/2014 1:34 AM CDT Nika Anderson MD ECG ORDERABLES Final Result Performing Organization Address [facility]/ZIP Co de Phone Number [facility] * LIPASE (03/16/2014 1:29 AM CDT) Pathologist [facility] LIPASE 85 73 - 393 U/L [facility] I.V. SITE 03/16/2014 1:29 AM CDT 03/16/2014 1:34 AM CDT Nika Anderson MD LABORATORY Final Result Performing Organization Address [facility] Co de Phone Number [facility] [address] [place] [address] * TROPONIN, QUANT (03/16/2014 1:29 AM CDT) Pathologist [facility] TROPONIN I <0.02 <0.04 ng/mL [facility] Comment: Guidelines: Normal <0.04 ng/mL. Indeterminate 0.04 to 0.29 ng/mL. Serial measurements may help assess possibility of myocardial injury. Levels equal or >0.30 ng/mL are consistent with myocardial injury. I.V. SITE 03/16/2014 1:29 AM CDT 03/16/2014 1:34 AM CDT Nika Anderson MD LABORATORY Final Result Performing Organization Address [facility] Co de Phone Number [facility] [address] [place] [address] * (ABNORMAL) CPKMB (03/16/2014 1:29 AM CDT) CK-MB <0.5(L) 0.5 - 3.6 ng/mL [facility] I.V. SITE 03/16/2014 1:29 AM CDT 03/16/2014 1:34 AM CDT us Nika Anderson MD LABORATORY Final Result Performing Organization Address [facility]/ZIP Co de Phone Number [facility] [address] [phone] * CPK (03/16/2014 1:29 AM CDT) CPK 86 26 - 192 U/L [facility] I.V. SITE 03/16/2014 1:29 AM CDT 03/16/2014 1:34 AM CDT us Nika Anderson MD LABORATORY Final Result Performing Organization Address [facility] Co de Phone Number [facility] [address] [place] [address] * (ABNORMAL) COMPREHENSIVE METABOLIC PANEL (03/16/2014 1:29 AM CDT) Pathologist [facility] SODIUM S/P/B 140 136 - 145 mmol/L [facility] POTASSIUM S/P/B 3.3(L) 3.5 - 5.1 mmol/L [facility] CHLORIDE S/P/B 105 98 - 107 mmol/L [facility] CO2 27 21 - 32 mmol/L [facility] ANION GAP 8 5 - 15 mmol/L [facility] BUN 10 7 - 18 mg/dL [facility] CREATININE S/P/B 1.0 0.6 - 1.0 mg/dL [facility] BUN CREATININE RATIO 10.0 10 - 20 :1 [facility] EGFR NON-AFR. AMER. >60 >60 mls/min. [facility] EGFR AFR. AMER. >60 >60 mls/min. [facility] GLUCOSE 131(H) 70 - 99 mg/dL [facility] CALCIUM S/P/B 8.8 8.5 - 10.1 mg/dL [facility] TOTAL PROTEIN S/P/B 7.2 6.4 - 8.5 g/dL [facility] ALBUMIN S/P/B 3.2 3.1 - 5.0 g/dL [facility] BILIRUBIN TOTAL S/P/B 0.4 0.2 - 1.0 mg/dL [facility] ALKALINE PHOSPHATASE S/P/B 97 45 - 117 U/L [facility] AST 17 15 - 37 U/L [facility] ALT 20 12 - 78 U/L [facility] I.V. SITE 03/16/2014 1:29 AM CDT 03/16/2014 1:34 AM CDT us Nika Anderson MD LABORATORY Final Result Performing Organization Address City/State/[facility] Co de Phone Number [facility] [address] [place] [address] * (ABNORMAL) CBC W/DIFF AUTOMATED (03/16/2014 1:29 AM CDT) WBC 9.7 3.8 - 10.7 k/uL [facility] RBC 4.44 3.80 - 5.20 m/uL [facility] HGB 12.8 12.0 - 16.0 g/dL [facility] HCT 38.7 35.0 - 46.0 % [facility] MCV 87 80.0 - 98.0 fl [facility] MCH 28.8 25.0 - 34.0 pg [facility] MCHC 33.1 32.0 - 36.0 g/dL [facility] RDW 14.3 11.0 - 15.0 % [facility] RDW-SD 44.8 36.4 - 46.3 fL [facility] PLT 221 140 - 440 k/uL [facility] MPV 11.50 9.2 - 12.7 fl [facility] DIFFERENTIAL TYPE AUTO-DIFF [facility] NEUTROPHILS % 60.3 % [facility] LYMPHOCYTES % 30.4 % [facility] MONOCYTES % 5.2 % [facility] EOSINOPHILS % 2.8 % [facility] BASOPHILS % 0.7 % [facility] IMMATURE GRANS % 0.6 % [facility] ABS. NEUTROPHILS 5.8 1.6 - 7.2 k/uL [facility] ABS. LYMPHOCYTES 2.9 0.9 - 4.0 k/uL [facility] ABS. MONOCYTES 0.5 0.2 - 0.9 k/uL [facility] ABS. EOSINOPHILS 0.3 0.0 - 0.5 k/uL [facility] ABS. BASOPHILS 0.1 0.0 - 0.2 k/uL [facility] ABS. IMMATURE GRANULOCYTES 0.1(H) 0.0 k/uL [facility] I.V. SITE 03/16/2014 1:29 AM CDT 03/16/2014 1:34 AM CDT us Nika Anderson MD LABORATORY Final Result Performing Organization Address City/State/[facility] Co de Phone Number [facility] [address] [place] [address] documented in this encounter Visit Diagnoses Diagnosis Abdominal pain, other specified site- Primary documented in this encounter Administered Medications Inactive Administered Medications - up to 3 most recent administrations Medication Order MAR Action Action Date Dose Rate Site HYDROmorphone (DILAUDID) injection 0.5 mg 0.5 mg, Intravenous, Once, 1 dose, On 03/16/14 at 0315 Given 03/16/2014 3:05 AM CDT 0.5 mg iopamidol (ISOVUE-370) 76 % injection 100 mL 100 mL, Intravenous, IMG once as needed, Contrast, 1 dose, Starting on 03/16/14 at 0410, Until 03/16/14 at 0421 Given 03/16/2014 4:21 AM CDT 100 mLs morphine injection 2 mg 2 mg, Intravenous, Once, 1 dose, On 03/16/14 at 0145 Given 03/16/2014 1:31 AM CDT 2 mg morphine injection 4 mg 4 mg, Intravenous, Once, 1 dose, On 03/16/14 at 0215 Given 03/16/2014 1:57 AM CDT 4 mg sodium chloride 0.9% bolus infusion 1,000 mL 1,000 mL, Intravenous, Administer over 15 Minutes, Once, 1 dose, On 03/16/14 at 0145 New Bag 03/16/2014 1:31 AM CDT 1,000 mLs 1000 mL/hr documented in this encounter Active and Recently Administered Medications Times are shown in CDT. Scheduled Medication Order 03/14/2014 03/15/2014 03/16/2014 HYDROmorphone (DILAUDID) injection 0.5 mg (COMPLETED) 0.5 mg, Intravenous, Once, 1 dose, On 03/16/14 at 0315 0305 (Given - Provid er: Jada Ohara RN) morphine injection 2 mg (COMPLETED) 2 mg, Intravenous, Once, 1 dose, On 03/16/14 at 0145 0131 (Given - Provid er: Jada Ohara RN) morphine injection 4 mg (COMPLETED) 4 mg, Intravenous, Once, 1 dose, On 03/16/14 at 0215 0157 (Given - Provid er: Jada Ohara RN) sodium chloride 0.9% bolus infusion 1,000 mL (COMPLETED) 1,000 mL, Intravenous, Administer over 15 Minutes, Once, 1 dose, On 03/16/14 at 0145 0131 (New Bag - Prov ider: Jada Ohara RN)[id number] (Infusion Stop Time - Provider: Jada Ohara RN) PRN Medication Order 03/14/2014 03/15/2014 03/16/2014 iopamidol (ISOVUE-370) 76 % injection 100 mL (COMPLETED) 100 mL, Intravenous, IMG once as needed, Contrast, 1 dose, Starting on 03/16/14 at 0410, Until 03/16/14 at 0421 0421 (Given - Provid er: Amna Hi) documented in this encounter Care Teams Technical Laboratory Asst Relationship Specialty Start Date End Date None, Provider, PCP - General 03/11/14 documented as of this encounter
--- OUTSIDE RECORDS SUMMARY | 2024-07-17 03:08 | XMS_ITS | Encounter Summary ---
Author Organization [facility] Address [address] [place] [address]. [place], [place] [id number] [place] [id number] Care Team Providers Care Latin Dance Instructor Name Role Phone Unavailable Primary Care Provider Unavailabl e Reason for Visit * Reason Onset Date Comments Error 12/30/2008 Encounter Details Date Type Department Care Team (Late st Contact Info) Description 12/30/2008 Nurse Triage [facility] [address] [place] [address] Raquel Gauthier MD [address] 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
--- OUTSIDE RECORDS SUMMARY | 2024-07-17 03:08 | XMS_ITS | Encounter Summary ---
Author Organization [facility] Address [address] [place] [address]. 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 documented in this encounter Plan of Treatment Not on file documented as of this encounter Visit Diagnoses Not on filedocumented in this encounter
--- OUTSIDE RECORDS SUMMARY | 2024-07-17 03:08 | XMS_ITS | Encounter Summary ---
Author Organization [facility] Address [address] [place] [address]. [place], [place] [phone] [place] [id number] Care Team Providers Care Roofing Laborer Name Role Phone None, Provider Primary Care Provider Charlenea nikole Manarang, Don DO Primary Care Provider [phone] Manarang, Don DO Primary Care Provider [phone] Manarang, Don DO Primary Care Provider [phone] Manarang, Don DO Primary Care Provider [phone] Manarang, Don DO Primary Care Provider [phone] Manarang, Don DO Primary Care Provider [phone] Manarang, Don DO Primary Care Provider [phone] Encounter Details Date Type Department Care Team (Late st Contact Info) Description 12/25/2012 Abstract [facility] [place] [address] Kelton Raya MD [address] [place] [phone] Social History Tobacco Use Types Packs/Day Years [...] 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 on file Not on file documented as of this encounter Plan of Treatment Not on file documented as of this encounter Visit Diagnoses Diagnosis Major depressive disorder, recurrent episode, moderate ([facility]) Major depressive disorder, recurrent episode, moderate documented in this encounter Care Teams Roofing Laborer Relationship Specialty Start Date End Date None, Provider, PCP - General 03/11/14 Bakari Vasquez DO [address] [place] [address] PCP - General 01/31/13 03/10/14 Bakari Vasquez DO [address] [place] [address] PCP - General 01/25/13 01/30/13 Bakari Vasquez DO [address] [place] [address] PCP - General 01/21/13 01/24/13 Bakari Vasquez DO [address] [place] [address] PCP - General 01/09/13 01/20/13 Bakari Vasquez DO [address] [place] [address] PCP - General 01/03/13 01/08/13 Bakair Vasquez DO [address] [place] [address] PCP - General 01/01/13 01/02/13 Bakari Vasquez DO [address] [place] [address] PCP - General 12/25/12 12/31/12 documented as of this encounter
--- OUTSIDE RECORDS SUMMARY | 2024-07-17 03:08 | XMS_ITS | Encounter Summary ---
Author Organization [facility] Address [address] [place] [address]. [place], [place] [id number] [place] [id number] Care Team Providers Care Electrical Wirer Name Role Phone None, Provider MD Primary Care Provider Unavaila ble Reason for Referral * Imaging (Emergency) - Closed Specialty Diagnoses / Procedures Referred By Contac t Referred To Contact Procedures CT ABD+PEL W CON Nika Torres MD [address] [place] [phone] Phone: tel: fax: Referral ID Status Reason Start Date Expiration Date Visits Re quested Visits Authorized [id number] Closed 12/22/2017 01/21/2019 1 1 Reason for Visit * Reason Comments Abdominal Pain Abdominal cramping s tarted this am. Severe cramping in upper abdomen. Nauseated, no vomiting. Pain increases with drinking or eating. Has diarrhea, but this is normal for her. States had this once in past, and had good luck with Jorge. Encounter Details Date Type Department Care Team (Late st Contact Info) Description 12/22/2017 2:21 PM CDT - 12/22/2017 7:31 PM CDT Emergency [facility] [address] [place] [address] Nika Torres MD [address] [place] [id number] Abdominal Pain (Abdominal cramping started this am. Severe cramping in upper abdomen. Nauseated, no vomiting. Pain increases with drinking or eating. Has diarrhea, but this is normal for her. States had this once in past, and had good luck with Bentyl. 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 on file Not on file documented as of this encounter Last Filed Vital Signs Vital Sign Reading Time Taken Comments Blood Pressure 121/75 12/22/2017 7:30 PM CDT Pulse 64 12/22/2017 6:04 PM CDT Temperature 36.3 ??C (97.3 ??F) 12/22/2017 4:25 PM CD T Respiratory Rate 18 12/22/2017 6:04 PM CDT Oxygen Saturation 96% 12/22/2017 6:04 PM CDT Inhaled Oxygen Concentration - - Weight 96.2 kg (212 lb) 12/22/2017 2:39 PM CDT Height 172.7 cm (5' 8 ) 12/22/2017 2:39 PM CDT Body Mass Index 32.23 12/22/2017 2:39 PM CDT documented in this encounter Discharge Instructions * Discharge Instructions* Nika Torres MD - 12/22/2017 7:20 PM CDT Images from the original note were not included. Patient Education Acute Abdomen (Belly Pain) The Basics Written by the doctors and editors at [facility] What is an acute abdomen???--??Doctors use the term acute abdomen to describe an episode of bellypain that starts suddenly and lasts for a few hours or longer. Doctors use the word acute when something starts suddenly. The abdomen, or belly, is the part of the body between the chest and the genital area. When people have an acute abdomen, their pain is so severe that they have a hard time moving or breathing and it makes them want to go to the hospital or see their doctor or nurse right away. A true acute abdomen is a medical emergency. The pain symptoms are different for different people. The pain can feel sharp or crampy. People canfeel the pain all over their belly, or only in 1 part. Some people feel better if they curl into a ball, while others need to lie flat and completely still. People often feel sick to their stomach and retch or vomit. Of course, not everyone with pain in the belly has an acute abdomen. When pain is less severe, it can be due to something like a virus or a stomach inflammation (called gastritis ). What causes an acute abdomen???--??An acute abdomen can have different causes. Most of the time, anacute abdomen happens when there's a serious problem with 1 or more organs in the abdomen. Organs in the abdomen can be part of the digestive, urinary, or female reproductive systems (figure 1 and figure 2 and figure 3). Conditions that affect organs in the chest or genital area can also cause an acute abdomen. Even though these organs aren't in the belly, people might still have pain in their belly. Common causes of an acute abdomen in adults include: ?Appendicitis - Appendicitis is the term for when the appendix (a long, thin pouch that hangs down from the large intestine) gets infected and inflamed. ?Diverticulitis - Diverticulitis is an infection that develops in small pouches that can form in the intestine. This is common in older people. ?Gallstones - Gallstones are small stones that form inside an organ called the gallbladder, which stores bile, a fluid that helps the body break down fat. ?Abscess - An abscess is a collection of pus in the intestine. ?Bowel perforation - This is a hole in the bowel wall. ?Perforated ulcer - This is a hole in the wall of the stomach or intestine. ?Pancreatitis - This is the term for when the pancreas gets inflamed. ?Ruptured cyst in the ovary - Cysts in the ovary are fluid-filled sacs that can form in some women.They sometimes rupture, which means that they break open and spill out. ?Ectopic - An ectopic is a that develops outside the uterus. Should I see a doctor or nurse???--??Yes. If you have symptoms of acute abdomen, see your doctor ornurse or go to the hospital right away. If you have a true acute abdomen, it is important that treatment begin without delay. Will I need tests???--??Probably. The doctor or nurse will ask about your symptoms, including whereyour pain is and what it feels like. He or she will ask about your current and past medical conditions, and do an exam. Your doctor might do repeat exams over time to follow your symptoms. Your doctor will decide which tests you should have based on your symptoms and individual situation. The tests might include: ?Blood tests ?Urine tests ?X-rays ?An ultrasound, CT scan, or other imaging test - Imaging tests create pictures of the inside of thebody. How is an acute abdomen treated???--??Treatment depends on what's causing the pain. It might include 1 or more of the following: ?Fluids given by IV ?Pain medicines ?Antibiotic medicines to treat an infection ?Other medicines to treat other medical conditions ?Surgery All topics are updated as new evidence becomes available and our peer review process is complete. This topic retrieved from [employer] on: Jul 21, 2017. Topic 92796 Version 9.0 Release: 25.6.2-122 - C26.3 ?2018??[employer] and/or its affiliates.??All rights reserved. figure 1: Organs inside the abdomen (belly) Graphic 14138 Version 6.0 figure 2: Anatomy of the urinary tract Urine is made by the kidneys. It passes from the kidneys into the bladder through two tubes called the ureters. Then it leaves the bladder through another tube called the urethra. Graphic 75588 Version 7.0 figure 3: Female reproductive anatomy These are the internal organs that make up a woman's reproductive system. Graphic 78824 Version 5.0 Consumer Information Use and Disclaimer This information is not specific medical advice and does not replace information you receive from your health care provider. This is only a brief summary of general information. It does NOT include all information about conditions, illnesses, injuries, tests, procedures, treatments, therapies, discharge instructions or life-style choices that may apply to you. You must talk with your health care provider for complete information about your health and treatment options. This information should not be used to decide whether or not to accept your health care provider's advice, instructions or recommendations. Only your health care provider has the knowledge and training to provide advice that is right for you.The use of [employer] content is governed by the [employer] Terms of Use. ??2018 [employer]. All rights reserved. Copyright ?2018??[employer]. and/or its affiliates.??All rights reserved. documented in this encounter Medications at Time of Discharge Cetirizine HCl 10 MG Cap Take by mouth as needed. clonazePAM 0.5 MG tablet Take 0.5 mg by mouth nightly at bedtime. Cyanocobalamin (VITAMIN B 12 OR) fluticasone propionate 50 MCG/ACT nasal spray 1 spray by Nasal route daily. furosemide 40 MG tablet Take 40 mg by mouth daily. metFORMIN 500 MG tablet Take 1,000 mg by mouth 2 (two) times daily with meals. montelukast 10 MG tablet Take 10 mg by mouth nightly at bedtime. ondansetron 4 MG disintegrating tablet Take 1 tablet (4 mg total) by mouth every 8 (eight) hours as needed for Nausea. 20 tablet 12/22/2017 zinc gluconate 50 MG Tab Take 1 tablet by mouth daily. dicyclomine 20 MG tablet Take 1 tablet (20 mg total) by mouth every 6 (six) hours. 360 tablet 12/22/2017 9 documented as of this encounter ED Notes * EDDI Oh - 12/22/2017 6:[address] complete 1820 * Nika Torres MD - 12/22/2017 3:02 PM CDT eMERGENCY dEPARTMENT eNCOUnter CHIEF COMPLAINT Chief Complaint Patient presents with ??? Abdominal Pain Abdominal cramping started this am. Severe cramping in upper abdomen. Nauseated, no vomiting. Pain increases with drinking or eating. Has diarrhea, but this is normal for her. States had this once inpast, and had good luck with Bentyl. HPI Vangie Yuen is a 47-year-old female who presents with complaint of abdominal cramping that started this morning. She said it is mostly in the upper abdomen and of the left side of her abdomen.She has had some associated nausea has not had any vomiting. The pain increases after she eats or drinks something. She has chronic diarrhea related to metformin use. She said the diarrhea is stable and not changed at all with the cramping symptoms. He has not noticed any black or blood in her stool. She had a similar episode about a year ago at a hospital in [place]. She said that they actuallygave her Bentyl and she had good relief. They told her she had a virus but she did not feel that was likely the cause of her symptoms. The patient does have a history of polycystic kidney disease andnotes she occasionally gets some left-sided kidney pain but has not had any in the last couple ofdays. REVIEW OF SYSTEMS See HPI for further details. Review of systems otherwise negative. PAST MEDICAL HISTORY Past Medical History: Diagnosis Date ??? Congenital cystic disease of liver ??? Depressive disorder, not elsewhere classified slight anxiety assoc ??? Diabetes mellitus ??? Endometriosis dx with surgery ??? Excessive or frequent menstruation ??? Gastric ulcer, unspecified as acute or chronic, without mention of hemorrhage or perforation 2004 dx with endoscopy - placed on Protonix ??? Polycystic kidney, unspecified type dx 2002 or 2003 ??? Rheumatoid arthritis(714.0) 1987 SURGICAL HISTORY Past Surgical History: Procedure Laterality Date ??? DELIVERY ONLY ONLY, LOW CERVICAL ??? CHOLECYSTECTOMY ??? ENDOSCOPY 2004 dx ulcers ??? LAPAROSCOPIC CHOLECYSTECTOMY 06/18/05 CHOLECYSTECTOMY, LAPAROSCOPIC CURRENT MEDICATIONS No current facility-administered medications for this encounter. Current Outpatient Prescriptions: ??? Cetirizine HCl 10 MG Cap, Take by mouth as needed., Disp: , Rfl: ??? clonazePAM 0.5 MG tablet, Take 0.5 mg by mouth nightly at bedtime., Disp: , Rfl: ??? Cyanocobalamin (VITAMIN B 12 OR), , Disp: , Rfl: ??? fluticasone propionate 50 MCG/ACT nasal spray, 1 spray by Nasal route daily., Disp: , Rfl: ??? furosemide 40 MG tablet, Take 40 mg by mouth daily., Disp: , Rfl: ??? metFORMIN 500 MG tablet, Take 1,000 mg by mouth 2 (two) times daily with meals., Disp: , Rfl: ??? montelukast 10 MG tablet, Take 10 mg by mouth nightly at bedtime., Disp: , Rfl: ??? zinc gluconate 50 MG Tab, Take 1 tablet by mouth daily., Disp: , Rfl: ALLERGIES Allergies Allergen Reactions ??? Ancef [Cefazolin Sodium] Shortness of Breath ??? Dicloxacillin Itching ??? Doxycycline Shortness of Breath ??? Sulfa Antibiotics Rash FAMILY HISTORY Family History Problem Relation Age of Onset ??? Osteoporosis Mother ??? Arthritis Mother ??? Cancer Father prostate ??? Hypertension Father ??? Arthritis Father ??? Genitourinary () Father polycystic kidneyspresently on dialysis ??? Alcohol/Drug Sister alcohol ??? Alcohol/Drug Brother x2 alcohol ??? Cancer Brother bladder ??? Cancer Sister cervical ??? Diabetes Maternal Grandmother ??? Other [OTHER] Maternal Grandmother pardkinsons ??? Hypertension Sister ??? Mental Health Brother depression ??? Mental Health Sister sister ??? Convulsions/Seizures Brother following brain injury ??? Genitourinary () Sister x2 with polycystic kidneys ??? Migraines/Headaches Sister ??? Cancer Daughter nodular sclerosing hodgkins lymphome dx age 17 SOCIAL HISTORY Social History Social History ??? Marital status: Spouse name: N/A ??? Number of children: 2 ??? 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 Smoking status: Never Smoker ??? Smokeless tobacco: Never Used ??? Alcohol use No ??? Drug use: No ??? Sexual activity: Yes Partners: Male control/ protection: Spermicide Other Topics Concern ??? Service No [...] Yes ??? Self-Exams No Social History Narrative PHYSICAL EXAM VITAL SIGNS: Filed Vitals: 12/22/17 1439 BP: 124/75 Pulse: 71 Resp: 20 Temp: 98.1 ??F (36.7 ??C) TempSrc: Oral SpO2: 99% Weight: 96.2 kg (212 lb) Height: 5' 8 (1.727 m) Constitutional: Well developed, well nourished, no acute distress, non-toxic appearance Eyes: PERRL, conjunctiva normal HENT: Atraumatic, external ears normal, nose normal, oropharynx moist. Neck supple Respiratory: No respiratory distress, normal breath sounds Cardiovascular: Normal rate, normal rhythm, no murmurs, no gallops, no rubs GI: Abdomen is soft, left sided abdominal tenderness no guarding masses or rebound is noted : No CVA tenderness Musculoskeletal: No edema Integument: Well hydrated Neurologic: Alert & oriented x 3, no focal deficits RADIOLOGY/PROCEDURES CT abdomen and pelvis ED COURSE & MEDICAL DECISION MAKING Pertinent Labs & Imaging studies reviewed. (See chart for details) Labs Reviewed LIPASE - Abnormal; Notable for the following: Result Value LIPASE 70 (*) All other components within normal limits COMPREHENSIVE METABOLIC PANEL - Abnormal; Notable for the following: CHLORIDE 109 (*) CALCIUM 8.1 (*) ALBUMIN 3.2 (*) AST 11 (*) All other components within normal limits URINALYSIS, AUTO, COMPLETE - Abnormal; Notable for the following: BACTERIA (URINE) FEW (*) All other components within normal limits POCT URINE (BACK OFFICE) - Normal ED BLOOD SAMPLE (ERHOLD) CBC W/DIFF AUTOMATED CT scan did not reveal any acute abnormality. The patient is much improved, stating the cramping pain is nearly resolved. She has tolerated oral intake. She has not vomited while she has been in the ED. The patient is going to be discharged. She will follow a clear liquid diet and follow up as an outpatient in [place] with her PMD. She may consider a GI consult as this was her second episode of similar symptoms. FINAL IMPRESSION 1. Acute abdominal pain, initial encounter 2. Nika Torres MD 12/22/17 3997 documented in this encounter Plan of Treatment Not on file documented as of this encounter Procedures Procedure Name Priority Date/Time Associated Diagnosis Comments CT ABD+PEL W CON STAT 12/22/2017 6:15 PM CDT POCT URINE (BACK OFFICE) STAT 12/22/2017 3:14 PM CDT URINALYSIS, AUTO, COMPLETE STAT 12/22/2017 3:12 PM CDT ED BLOOD SAMPLE (ERHOLD) STAT 12/22/2017 2:50 PM CDT COMPREHENSIVE METABOLIC PANEL STAT 12/22/2017 2:50 PM CDT CBC W/DIFF AUTOMATED STAT 12/22/2017 2:50 PM CDT LIPASE STAT 12/22/2017 2:50 PM CDT documented in this encounter Results * CT ABD+PEL W CON (12/22/2017 6:15 PM CDT) Anatomical Region Laterality Modality Abdomen Computed Tomogra phy 12/22/2017 6:21 PM CDT 12/22/2017 6:21 PM CDT Narrative 12/22/2017 6:21 PM CDT INTERPRETATION LOCATION: [facility] PROCEDURE: ??CT ABD+PEL W CON DATE: ??12/22/2017 6:21 PM COMPARISONS: 2013 CLINICAL INDICATION: 47 years Female Abdominal pain, unspecified left sided abdominal pain TECHNIQUE: ??Images were obtained in the axial plane following contrast administration. Coronal and sagittal reformations were created. ? Individualized dose optimization technique was used for the procedure performed. CONTRAST: 100 cc Isovue-370 IV contrast ? FINDINGS: ? LOWER CHEST: No pleural effusion or pericardial effusion is identified. Lung bases are clear. ? ABDOMEN/PELVIS: ? HEPATOBILIARY: Multiple cysts again noted. Cholecystectomy clips noted.There is no evidence of significant biliary dilatation. ?? RENAL:The kidneys enhance normally bilaterally.Bilateral cysts again noted.There is no hydronephrosis. ?? SPLEEN AND RETROPERITONEUM:The spleen is normal in size. ??No focal splenic masses are demonstrated.The pancreas appears normal without evidence of mass or inflammation.No adrenal masses are demonstrated.There is no evidence of retroperitoneal or mesenteric adenopathy. ? The inferior vena cava is unremarkable. The aorta is normal in caliber. ?? BOWEL AND PERITONEUM: There is no evidence of abnormal bowel dilatation or bowel wall thickening. There is no evidence of significant free fluid or free intraperitoneal air. ? PELVIS:The bladder appears unremarkable.There is a right adnexal 2.9 cm low- density lesion which could be a cyst.No pelvic or inguinal adenopathy is evident. ?? MUSCULOSKELETAL AND EXTRA-ABDOMINAL SOFT TISSUES: Within normal limits for age. IMPRESSION: ??No acute process detected on this CT. ?? Dictated By: Jose Pugh MD Dictated On: 12/22/2017 18:21:48 Electronically Signed By: Jose Pugh MD Electronically Signed on: 12/22/2017 18:27:22 Procedure Note Jose Pugh MD - 12/22/2017 INTERPRETATION LOCATION: [facility] PROCEDURE: CT ABD+PEL W CON DATE: 12/22/2017 6:21 PM COMPARISONS: 2013 CLINICAL INDICATION: 47 years Female Abdominal pain, unspecified left sided abdominal pain TECHNIQUE: Images were obtained in the axial plane following contrastadministration. Coronal and sagittal reformations were created.Individualized dose optimization technique was used for the procedureperformed. CONTRAST: 100 cc Isovue-370 IV contrast FINDINGS: LOWER CHEST: No pleural effusion or pericardial effusion is identified.Lung bases are clear. ABDOMEN/PELVIS: HEPATOBILIARY: Multiple cysts again noted. Cholecystectomy clipsnoted.There is no evidence of significant biliary dilatation. RENAL:The kidneys enhance normally bilaterally.Bilateral cysts againnoted.There is no hydronephrosis. SPLEEN AND RETROPERITONEUM:The spleen is normal in size. No focal splenicmasses are demonstrated.The pancreas appears normal without evidence ofmass or inflammation.No adrenal masses are demonstrated.There is noevidence of retroperitoneal or mesenteric adenopathy. The inferior vena cava is unremarkable. The aorta is normal in caliber. BOWEL AND PERITONEUM: There is no evidence of abnormal bowel dilatation orbowel wall thickening. There is no evidence of significant free fluid orfree intraperitoneal air. PELVIS:The bladder appears unremarkable.There is a right adnexal 2.9 cmlow- density lesion which could be a cyst.No pelvic or inguinal adenopathyis evident. MUSCULOSKELETAL AND EXTRA-ABDOMINAL SOFT TISSUES: Within normal limits forage. IMPRESSION: No acute process detected on this CT. Dictated By: Jose Pugh MD Dictated On: 12/22/2017 18:21:48 Electronically Signed By: Jose Pugh MD Electronically Signed on: 12/22/2017 18:27:[address] Final Result * POCT urine (12/22/2017 3:14 PM CDT) URINE HCG TEST Negative Internal Control performed as Expected? yes us Nika Torres MD POINT OF CARE TEST ORDERABLES Fi nal Result * (ABNORMAL) URINALYSIS, AUTO, COMPLETE (12/22/2017 3:12 PM CDT) COLLECTION METHOD URINE CLEAN CATCH 12/22/2017 3:17 PM CDT [facility] COLOR (U) STRAW 12/22/2017 3:24 PM CDT [facility] TRANSPARENCY CLEAR CLEAR 12/22/2017 3:24 PM CDT [facility] SPECIFIC GRAVITY (U) 1.004 1.001 - 1.035 12/22/2017 3:24 PM CDT [facility] U PH 5.0 5.0 - 9.0 12/22/2017 3:24 PM CDT [facility] PROTEIN (U) NEGATIVE NEGATIVE MG/DL 12/22/2017 3:24 PM CDT [facility] GLUCOSE (U) NEGATIVE NEGATIVE MG/DL 12/22/2017 3:24 PM CDT [facility] KETONES MG/DL (U) NEGATIVE NEGATIVE MG/DL 12/22/2017 3:24 PM CDT [facility] BILIRUBIN (U) NEGATIVE NEGATIVE 12/22/2017 3:24 PM CDT [facility] BLOOD (U) NEGATIVE NEGATIVE 12/22/2017 3:24 PM CDT [facility] UROBILINOGEN <2.0 <2.0 MG/DL 12/22/2017 3:24 PM CDT [facility] NITRITES NEGATIVE NEGATIVE 12/22/2017 3:24 PM CDT [facility] LEUKOCYTES (U) NEGATIVE NEGATIVE 12/22/2017 3:24 PM CDT [facility] WBC/HPF NONE SEEN 0 - 2 /HPF 12/22/2017 3:24 PM CDT [facility] RBC/HPF NONE SEEN 0 - 2 /HPF 12/22/2017 3:24 PM CDT [facility] EPI/HPF 0-2 0 - 2 /HPF 12/22/2017 3:24 PM CDT [facility] BACTERIA (U) FEW(A) NONE SEEN 12/22/2017 3:24 PM CDT [facility] URINE SPECIMEN OBTAINED BY CLEAN CATCH PROCEDURE / Unknown 12/22/2017 3:12 PM CDT us Nika Torres MD URINE ORDERABLES Final Result [facility] [address] [place] [address] * (ABNORMAL) COMPREHENSIVE METABOLIC PANEL (12/22/2017 2:50 PM CDT) SODIUM S/P/B 142 136 - 145 MMOL/L 12/22/2017 3:24 PM CDT [facility] POTASSIUM S/P/B 3.7 3.5 - 5.1 MMOL/L 12/22/2017 3:24 PM CDT [facility] CHLORIDE S/P/B 109(H) 98 - 107 MMOL/L 12/22/2017 3:24 PM CDT [facility] CO2 23.0 21.0 - 32.0 MMOL/L 12/22/2017 3:24 PM CDT [facility] ANION GAP 10.0 5.0 - 15.0 MMOL/L 12/22/2017 3:24 PM CDT [facility] BUN 7 7 - 18 MG/DL 12/22/2017 3:24 PM T [facility] CREATININE S/P/B 0.64 0.55 - 1.02 MG/DL 12/22/2017 3:24 PM T [facility] BUN CREATININE RATIO 11.0 10.0 - 20.0 12/22/2017 3:24 PM T [facility] EGFR NON-AFR. AMER. >90 >90 ML/MIN/1.7 3 M2 12/22/2017 3:24 PM T [facility] EGFR AFR. AMER. >90 >90 ML/MIN/1.7 3 M2 12/22/2017 3:24 PM T [facility] Comment: NOTE: eGFR is not calculated for patients <18 years of age. This is an estimated GFR (CKD EPI) and should not be used for calculating drug doses. GLUCOSE 80 70 - 99 MG/DL 12/22/2017 3:24 PM T [facility] CALCIUM S/P/B 8.1(L) 8.5 - 10.1 MG/DL 12/22/2017 3:24 PM T [facility] TOTAL PROTEIN S/P/B 6.6 6.4 - 8.5 G/DL 12/22/2017 3:24 PM T [facility] ALBUMIN S/P/B 3.2(L) 3.4 - 5.0 G/DL 12/22/2017 3:24 PM T [facility] Comment:Note: Reference Rang e Updated BILIRUBIN TOTAL S/P/B 0.7 0.2 - 1.0 MG/DL 12/22/2017 3:24 PM T [facility] ALKALINE PHOSPHATASE S/P/B 54 45 - 117 U/L 12/22/2017 3:24 PM T [facility] AST 11(L) 15 - 37 U/L 12/22/2017 3:24 PM CDT [facility] ALT 12 12 - 78 U/L 12/22/2017 3:24 PM CDT [facility] Comment:Note: Reference Rang e Updated 12/22/2017 2:50 PM CDT Nika Torres MD LABORATORY Final Result Performing Organization Address [facility]/ZIP Co de Phone Number [facility] [address] [place] [address] * (ABNORMAL) LIPASE (12/22/2017 2:50 PM CDT) LIPASE 70(L) 73 - 393 UNITS/L 12/22/2017 3:24 PM CDT [facility] 12/22/2017 2:50 PM CDT Nika Torres MD LABORATORY Final Result Performing Organization Address [facility] Co de Phone Number [facility] [address] [place] [address] * CBC W/DIFF AUTOMATED (12/22/2017 2:50 PM CDT) WBC 7.0 3.8 - 10.7 x10'3/uL 12/22/2017 3:12 PM CDT [facility] RBC 4.37 3.80 - 5.20 x10'6/uL 12/22/2017 3:12 PM CDT [facility] HGB 13.0 12.0 - 16.0 G/DL 12/22/2017 3:12 PM CDT [facility] HCT 37.9 35.0 - 46.0 % 12/22/2017 3:12 PM CDT [facility] MCV 86.7 80.0 - 98.0 FL 12/22/2017 3:12 PM CDT [facility] MCH 29.7 25.0 - 34.0 PG 12/22/2017 3:12 PM CDT [facility] MCHC 34.3 32.0 - 36.0 G/DL 12/22/2017 3:12 PM CDT [facility] RDW 14.4 11.0 - 15.0 % 12/22/2017 3:12 PM CDT [facility] RDW-SD 45.4 36.4 - 46.3 FL 12/22/2017 3:12 PM CDT [facility] PLT 209 140 - 440 x10'3/uL 12/22/2017 3:12 PM CDT [facility] MPV 12.5 9.2 - 12.7 FL 12/22/2017 3:12 PM CDT [facility] DIFFERENTIAL TYPE AUTOMATED DIFFERENTIAL 12/22/2017 3:12 PM CDT [facility] NEUTROPHILS % 67.4 % 12/22/2017 3:12 PM CDT [facility] LYMPHOCYTES % 23.8 % 12/22/2017 3:12 PM CDT [facility] LAB MONOCYTES % 5.1 % 12/22/2017 3:12 PM CDT [facility] EOSINOPHILS % 2.6 % 12/22/2017 3:12 PM CDT [facility] BASOPHILS % 0.7 % 12/22/2017 3:12 PM CDT [facility] IMMATURE GRANS % 0.4 % 12/23/19 18 3:12 PM CDT [facility] ABS. NEUTROPHILS 4.73 1.66 - 6.39 x10'3/uL 12/22/2017 3:12 PM CDT [facility] ABS. LYMPHOCYTES 1.67 0.65 - 3.19 x10'3/uL 12/22/2017 3:12 PM CDT [facility] ABS. MONOCYTES 0.36 0.19 - 0.87 x10'3/uL 12/22/2017 3:12 PM CDT [facility] ABS. EOSINOPHILS 0.18 0.00 - 0.43 x10'3/uL 12/22/2017 3:12 PM CDT [facility] ABS. BASOPHILS 0.05 0.00 - 0.08 x10'3/uL 12/22/2017 3:12 PM CDT [facility] ABS. IMMATURE GRANULOCYTES 0.03 0.00 - 0.07 x10'3/uL 12/22/2017 3:12 PM CDT [facility] NRBC % 0.0 % 12/22/2017 3:12 PM CDT [facility] NRBC 0.00 0.00 x10'3/uL 12/22/2017 3:12 PM CDT [facility] 12/22/2017 2:50 PM CDT us Nika Torres MD LABORATORY Final Result Performing Organization Address [facility]/ZIP Co de Phone Number [facility] [address] [place] [address] * ED BLOOD SAMPLE (ERHOLD) (12/22/2017 2:50 PM CDT) [facility] ED BLOOD SAMPLE (ERHOLD) ON HOLD, WAITING FOR ED ORDERS. CONTACT LABORATORY WITH IN 2 HOURS OF COLLECTION. 12/22/2017 2:53 PM CDT [facility] 12/22/2017 2:50 PM CDT us Lida Liriano DO LABORATORY Final Result Performing Organization Address [facility]/ZIP Co de Phone Number [facility] [address] [place] [address] documented in this encounter Visit Diagnoses Diagnosis Abdominal pain- Primary Abdominal pain, unspecified site documented in this encounter Administered Medications Inactive Administered Medications - up to 3 most recent administrations Medication Order MAR Action Action Date Dose Rate Site dicyclomine (BENTYL) injection 20 mg 20 mg, Intramuscular, Once, 1 dose, On Aaliyah 18 at 1515 Given 12/22/2017 3:27 PM CDT 20 mg Right Upper Outer Quadrant iopamidol (ISOVUE-370) 76 % injection 100 mL 100 mL, Intravenous, IMG once as needed, Contrast, 1 dose, Starting on Aaliyah 12/22/17 at 1815, Until Aaliyah 12/22/17 at 2136 iopamidol (ISOVUE-370) 76 % injection 100 mL 100 mL, Intravenous, IMG once as needed, Contrast, 1 dose, Starting on 12/24/17 at 0914, Until Aaliyah 12/22/17 at 1812 Given 12/22/2017 6:12 PM CDT 100 mLs ondansetron (ZOFRAN) injection 4 mg 4 mg, Intravenous, Once, 1 dose, On Aaliyah 18 at 1515 Given 12/22/2017 3:23 PM CDT 4 mg sodium chloride 0.9% bolus infusion SOLN 1,000 mL 1,000 mL, Intravenous, Administer over 15 Minutes, Once, 1 dose, On Aaliyah 12/22/17 at 1515 New Bag 12/22/2017 3:22 PM CDT 1,000 mLs documented in this encounter Active and Recently Administered Medications Times are shown in CDT. Scheduled Medication Order 12/20/2017 12/21/2017 12/22/2017 dicyclomine (BENTYL) injection 20 mg (COMPLETED) 20 mg, Intramuscular, Once, 1 dose, On Aaliyah 12/22/17 at 1515 1527 (Given - Provid er: Leelee Holland RN) ondansetron (ZOFRAN) injection 4 mg (COMPLETED) 4 mg, Intravenous, Once, 1 dose, On Aaliyah 18 at 1515 1523 (Given - Provid er: Leelee Holland RN) sodium chloride 0.9% bolus infusion SOLN 1,000 mL (COMPLETED) 1,000 mL, Intravenous, Administer over 15 Minutes, Once, 1 dose, On Aaliyah 18 at 1515 1522 (New Bag - Prov ider: Leelee Holland RN)1600 (Infusion Stop Time - Provider: Leelee Holland RN - Comment: 500 CCINFUSED AND iv STOPPED UPON ADVICE OF ERMKaleb) PRN Medication Order 12/20/2017 12/21/2017 12/22/2017 iopamidol (ISOVUE-370) 76 % injection 100 mL 100 mL, Intravenous, IMG once as needed, Contrast, 1 dose, Starting on Aaliyah 12/22/17 at 1815, Until Aaliyah 12/22/17 at 2136 iopamidol (ISOVUE-370) 76 % injection 100 mL (COMPLETED) 100 mL, Intravenous, IMG once as needed, Contrast, 1 dose, Starting on 12/24/17 at 0914, Until Aaliyah 12/22/17 at 1812 1812 (Given - Provid er: Marcy Dorman, RTR) documented in this encounter Care Teams Electrical Wirer Relationship Specialty Start Date End Date None, Provider, PCP - General 03/11/14 documented as of this encounter
--- OUTSIDE RECORDS SUMMARY | 2024-07-17 03:08 | XMS_ITS | Encounter Summary ---
Author Organization [facility] Address [address] [place] [address]. 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 Not on file Not on file documented as of this encounter Last Filed Vital Signs Vital Sign Reading Time Taken Comments Blood Pressure 100/62 11/19/2008 5:35 PM CDT Pulse 64 11/19/2008 5:35 PM CDT Temperature 36.9 ??C (98.5 ??F) 11/19/2008 5:35 PM CD T Respiratory Rate 24 11/19/2008 5:35 PM CDT Oxygen Saturation - - Inhaled Oxygen Concentration - - Weight 79.4 kg (175 lb) 11/19/2008 5:35 PM CDT Height - - Body Mass Index 26.22 12/29/2007 7:30 AM CDT documented in this encounter Progress Notes * Brigitte Clarke Monica - 11/19/2008 6:01 PM CDT CC: Swollen uvula Sinus pressure HPI: Vangie Yuen is a 38-year-old female, established patient of Dr. Majano. She presents today for concern of uvula swelling and right sinus pressure and right ear discomfort and sore throat. She reports since teenager she has had almost yearly episodes of swelling to her uvula. She reports this has been presents x 2 days with worse being this morning with sore throat. She reports dripping nose and clear drainage. Dneies fever, chills, rash, ROSEMARY, cough. She reports pain with swallowing. Allergies as of 11/19/2008 - reviewed 06/26/2008 Allergen Reaction Noted ??? Sulfa drugs Rash 06/10/2004 ??? Ancef (cefazolin sodium) Shortness of Breath 06/10/2004 ??? Dicloxacillin Itching 06/10/2004 Current outpatient prescriptions Medication Sig Dispense Refill ??? LAMICTAL 100 MG OR TABS 1 TABLET TWICE DAILY 60 0 ??? XANAX 1 MG OR TABS 1 TABLET 3 TIMES DAILY 90 0 ??? MEDROL (FAISAL) 4 MG OR TABS 6 tablets on day one, 5 tablets day two, 4 tablets day three, 3 tablets day four, 2 tablets day five, and 1 tablet day six 21 0 ??? FLUOXETINE HCL 20 MG OR TABS 1 CAPSULE THREE TIMES DAILY 90 0 ??? SUMATRIPTAN SUCCINATE 6 MG/0.5ML SC KIT TO USE DIRECTED 1 0 ??? IMITREX STATDOSE REFILL 6 MG/0.5ML SC KIT USE DIRECTED 1pk 2 OBJECTIVE: BP 100/62 Pulse 64 Temp (Src) 98.5 ??F (36.9 ??C) (Oral) Resp 24 Wt 175 lbs (79.379 kg). General appearance: Healthy, alert, mild distress with speaking due to discomfort. No s/s respiratory difficulty or use of accessory muscles or nasal flaring. Ears: R TM - intact tympanic membrane and canal and retracted. L TM - normal tympanic membrane and canal. Nose: Mucosal edema and pallor. Sinuses: No tenderness noted over frontal or maxillary sinuses, slight tenderness to right maxillary sinus. Oropharynx: Mild erythema and no exudates. Uvula slightly reddened and appears swollen at base. Neck: Supple, without adenopathy or tenderness. Lungs: Clear to auscultation. Heart: Regular rate and rhythm and no murmurs, clicks, or gallops. LAB: RST Neg. TC pending. ASSESSMENT: 1. Uvula swelling. 2. Pharyngitis. 3. Allergic Rhinitis. PLAN: 1. No antibiotics indicated at this time. 2. Medrol dose faisal as per EPIC. 3. Symptomatic treatment discussed and recheck for persistence or worsening of symptoms. F/U ENT orPCP if worse or persistent. documented in this encounter Plan of Treatment Not on file documented as of this encounter Procedures Procedure Name Priority Date/Time Associated Diagnosis Comments CULTURE STREP SCREEN Routine 11/19/2008 6:00 PM CDT STREP A RAPID STAT 11/19/2008 6:00 PM CDT Acute Pharyngitis documented in this encounter Results * CULTURE THROAT STREP A ONLY (11/19/2008 6:00 PM CDT) Pathologist [facility] THROAT CULTURE GROUP A STREP No Beta-hemolytic colonies resembling Strep. NOTS [facility] 11/19/2008 6:00 PM CDT 11/19/2008 6:03 PM CDT us Brigitte Anderson APNP MICROBIOLOGY - GENERAL OR DERABLES Final Result [facility] [address] [place] [address] * RAPID STREP, TC if negative (11/19/2008 6:00 PM CDT) Pathologist [facility] RAPID STREP TEST NEGATIVE NEG [facility] 11/19/2008 6:00 PM CDT 11/19/2008 6:03 PM CDT us Brigitte NIEVES MICROBIOLOGY - GENERAL OR DERABLES Final Result [facility] [address] [place] [address] documented in this encounter Visit Diagnoses Diagnosis Acute pharyngitis- Primary Allergic rhinitis Allergic rhinitis, cause unspecified documented in this encounter
--- OUTSIDE RECORDS SUMMARY | 2024-07-17 03:08 | XMS_ITS | Encounter Summary ---
Author Organization [facility] Address [address] [place] [address]. 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 [place], [place] [id number] PCP - General 10/30/09 10/30/09 None, MD [facility] [address] [facility] ?? [place] [address] PCP - General 03/11/14 Bakari Vasquez DO [address] [place] [address] PCP - General 01/31/13 03/10/14 Bakari Vasquez DO [address] [place] [address] PCP - General 01/25/13 01/30/13 Bakari Vasquez DO [address] [place] [address] PCP - General 01/21/13 01/24/13 Bakari Vasquez DO [address] [place] [address] PCP - General 01/09/13 01/20/13 Bakari Vasquez DO [address] [place] [address] PCP - General 01/03/13 01/08/13 Bakari Vasquez DO [address] [place] [address] PCP - General 01/01/13 01/02/13 Bakari Vasquez DO [address] [facility] [address] [place] [address] PCP - General 12/25/12 12/31/12 documented as of this encounter
--- OUTSIDE RECORDS SUMMARY | 2024-07-17 03:08 | XMS_ITS | Clinical Summary ---
Author Organization [facility] Address [address] [place] [address]. [place], [place] [address] [place] [address] Care Team Providers Care Cosmetology Professor Name Role Phone None, Provider MD Primary Care Provider Unavaila ble Allergies Active Allergy Reactions Criticality Noted Date Comments Cefazolin Sodium Shortness of Breath High 06/10/2004 Dicloxacillin Itching High 06/10/2004 Doxycycline Shortness of Breath High 08/28/2014 Sulfa Antibiotics Rash High 06/10/2004 Medications * This document contains information received from the source organization and may not represent a complete record from that organization. metFORMIN 500 MG tablet Take 1,000 mg by mouth 2 (two) times daily with meals. Active Cetirizine HCl 10 MG Cap Take by mouth as needed. Active zinc gluconate 50 MG Tab Take 1 tablet by mouth daily. Active Cyanocobalamin (VITAMIN B 12 OR) Ac tive fluticasone propionate 50 MCG/ACT nasal spray 1 spray by Nasal route daily. Active montelukast 10 MG tablet Take 10 mg by mouth nightly at bedtime. Active furosemide 40 MG tablet Take 40 mg by mouth daily. Active clonazePAM 0.5 MG tablet Take 0.5 mg by mouth nightly at bedtime. Active ondansetron 4 MG disintegrating tablet Take 1 tablet (4 mg total) by mouth every 8 (eight) hours as needed for Nausea. 20 tablet 8 Active Active Problems Problem Noted Date Diagnosed Date Routine general medical exam ination at a health care facility 08/11/2005 Overview (03/31/2006): FEMALE HEALTH MAINTENANCE: 03/31/06 Last Tetanus Vaccine: 2000 per pt Last Pneumovax: N/A Last Influenza Vaccine: never Last Mammogram: 07/22/04 Age 35 Last Pap Smear: 06/10/04 Last Lipid Panel: 06/10/04 Last Bone Mineral Density: N/A Last Colonoscopy: 1994 for GI Sx's Last Echocardiogram: N/A Last Height: 11/16/05 68.5 Pneumonia, organism unspecified(486) 08/11/2005 Immunizations Name Administration Dates Next Due Influenza Adult (Generic) 05/24/2008 Td 07/18/2000 Family History Medical History Relation Comments Alcohol/Drug Brother 2 x2 alcohol Cancer Brother 3 bladder Mental Health Brother 4 depression Convulsions/Seizures Brother 5 following b rain injury Cancer Daughter nodular sclerosi ng hodgkins lymphome dx age 17 Arthritis Father Cancer Father prostate Genitourinary () Father polycystic ki dneyspresently on dialysis Hypertension Father Diabetes Maternal Grandmother Other Maternal Grandmother pardkinsons Arthritis Mother Osteoporosis Mother Alcohol/Drug Sister 2 alcohol Cancer Sister 3 cervical Hypertension Sister 4 Mental Health Sister 5 sister Genitourinary () Sister 6 x2 with polyc ystic kidneys Migraines/Headaches Sister 7 Relation Status Comments Brother 1 Alive x2 Brother 2 Brother 3 Brother 4 Brother 5 Daughter Father Alive 73(2007) Maternal Grandmother Mother Alive 73(2007) Sister 1 Alive x5 Sister 2 Sister 3 Sister 4 Sister 5 Sister 6 Sister 7 Social History Tobacco Use Types Packs/Day Years [...] 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 on file [...] Mass Index 32.23 12/22/2017 2:39 PM CDT Plan of Treatment Health Maintenance Due Date Last Done Comments Colorectal Cancer Screening Colonoscopy (10 Years) 1969 Hepatitis C 1987 Hepatitis B Vaccines (1 of 3 - 19+ 3-dose series) 1988 Cervical Cancer Screening Pa p with HPV Testing (Age 30 to 64) Every 5 Years 1999 DTaP, Tdap and Td Vaccines ( 1 - Tdap) 07/19/2000 07/18/2000 Annual Physical 12/28/2008 12/29/2007 Mammogram Screening 2009 07/23/2004 Cervical Cancer Screening Pa p Smear (Age 30 to 64) Every 3 Years 12/28/2010 12/29/2007, 05/20/2006, 06/10/2004 Cervical Cancer Screening wi th HPV 12/28/2010 Zoster Vaccines (1 of 2) 2019 COVID-19 Vaccine ( - 2023-2 5 season) 2024 Influenza Adult (#1) 2024 05/24/2008 Meningococcal Vaccine Aged Out No binta estefany eligible based on patient's age to complete this topic Pneumococcal Vaccine: Pediatrics (0 to 5 Years) and At-Risk Patients (6 to 64 Years) Aged Out No longer eligible b ased on patient's age to complete this topic RSV Immunizations Under 20 Months Aged Out No longer eligible b ased on patient's age to complete this topic Procedures Procedure Name Priority Date/Time Associated Diagnosis Comments CYTOPATH CERV/VAG INTERPRET (PAP SMEAR) Routine 12/29/2007 10:56 AM CDT [facility] M[facility]M DIG SCREENING Routine 07/23/2004 Screening Mamm-Mailg Neopl-Other Screening Mamm-Malig Neopl-Hi Risk from Last 3 Months or Most Recently Relevant to Health Maintenance Results * CYTOPATH CERV/VAG INTERPRET (PAP SMEAR) (12/29/2007 10:56 AM CDT) COPATH REPORT ?[facility] ?[address] [place] [address] ? GYNECOLOGIC CYTOLOGY REPORT ? Name: JACQUI VANGIE Garcia ?Specimen # : [id number] Age: 10 1970 (Age: 37) ?Location: [facility] Sex: F ? Procedure Date: 12/29/2007 Hospital #: [id number] ?Date Processed: 01/02/2008 Prevea Physician(s): Raysa Diehl ? Patient History: LMP: 12-15-07 Mentrual/Preg: Contraceptive: Other:Negative Cancer History: Pertinent History: Negative Treatment History: SPECIMEN: ??Clinic Screening Thin Prep Pap ADEQUACY: ??Satisfactory for Evaluation. DIAGNOSIS: ??NEGATIVE FOR INTRAEPITHELIAL LESIONS OR MALIGNANCY. Demetrius Álvarez (ASCP) Electronically Signed Out On 01/03/2008 ? This document has been printed from the electronic file of the [facility] Information System. This is not an official medical record copy. To obtain an official copy, please refer to the patient's permanent medical record at [facility]. [facility] 12/29/2007 10:5 6 AM CDT 01/02/2008 10:56 AM CDT Raysa NIEVES PATHOLOGY/CYTOLOGY ORDERABLES Final Result [facility] * [facility]ON MAMM DIG SCREENING (MAMDSCRB) (07/23/2004) Anatomical Region Laterality Modality Mammography Narrative Procedure Note Adrian English - 07/23/2004 12:00 AM MANAGER POOL Refer. Physician: Samir Gonzalez MD Refer. DEBT COUNSELOR/PA: X-Ray #: [id number] X-Ray Tech: MAMMOGRAPHY REPORT -- [facility] X-RAY VIEW(S) ORDERED: [facility] Mammo Dig Screen CAD w or w/o Dig Screen REQUISITION HISTORY: Compare to [facility] 05/12/2000. INTERPRETATION: Digital bilateral mammogram with CAD. INDICATION: Screening. Compared to May 12, 2000. FINDINGS: There is no significant change in appearance. There are nocurrent findings suggestive of new or enlarging breast malignancy. BIRADS CATEGORY: 1 - Negative. GMG/jmb Samir Gonzalez MD MAMMO Final Re sult from Last 3 Months or Most Recently Relevant to Health Maintenance Insurance [facility] OUT OF NETWORK Care Teams Cosmetology Professor Relationship Specialty Start Date End Date None, Provider, PCP - General 03/11/14
--- OUTSIDE RECORDS SUMMARY | 2024-07-17 03:08 | XMS_ITS | Encounter Summary ---
Author Organization [facility] Address [address] [place] [address]. 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 on file Not on file documented as of this encounter Plan of Treatment Not on file documented as of this encounter Visit Diagnoses Diagnosis Bipolar I disorder, most recent episode (or current) depressed, severe, specified as with psychotic behavior ([facility]) Bipolar I disorder, most recent episode (or current) depressed, severe, specified as with psychotic behavior documented in this encounter Care Teams Director Of Admissions Relationship Specialty Start Date End Date None, Provider, PCP - General 03/11/14 Bakari Vasquez DO [address] [facility] [address] [place] [address] PCP - General 01/31/13 03/10/14 documented as of this encounter
--- OUTSIDE RECORDS SUMMARY | 2024-07-17 03:09 | XMS_ITS | Encounter Summary ---
Author Organization [facility] Address [address] [place] [address]. [place], [place] [address] [place] [address] Care Team Providers Care Tumbler Machine Operator Helper Name Role Phone Unavailable Primary Care Provider Unavailabl e Reason for Visit * Reason Comments Physical Encounter Details Date Type Department Care Team (Late st Contact Info) Description 12/29/2007 7:30 AM CDT Office Visit [facility] [address] [place] [address] Raysa Diehl APNP [address] 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 * Raysa Vince Shanita - 12/29/2007 9:43 AM CDT Vangie presents as a established patient today for a physical, gynecological examination, and Pap test. Her last examination was 2005. She is a 37-year-old female who is currently working at [employer] in [place]. She has concerns regarding increasing pain with periods.She has history of endometriosis also history of migraines and polycystic kidey disease. She may want to have another in the future for her daughter who has been diagnosed with a type of lymphoma.. FAMILY HISTORY: Family Status Relation Status Age ??? Mother Alive 73(2007) ??? Father Alive 73(2007) ??? Sister Alive x5 ??? Brother Alive x2 Family History Problem Relation ??? Alcohol/Drug Sister alcohol ??? Alcohol/Drug Brother x2 alcohol ??? Cancer Father prostate ??? Cancer Brother bladder ??? Cancer Sister cervical ??? Diabetes Maternal Grandmother ??? Hypertension Father ??? Hypertension Sister ??? Mental Health Brother depression ??? Mental Health Sister sister ??? Osteoporosis Mother ??? Other [Other] Maternal Grandmother pardkinsons ??? Arthritis Mother ??? Arthritis Father ??? Convulsions/Seizures Brother following brain injury ??? Genitourinary () Father polycystic kidneyspresently on dialysis ??? Genitourinary () Sister x2 with polycystic kidneys ??? Migraines/Headaches Sister ??? Cancer Daughter nodular sclerosing hodgkins lymphome dx age 17 PAST MEDICAL/SURGICAL HISTORY: Past Medical History Diagnosis Date ??? RHEUMATOID ARTHRITIS 1987 ??? EXCESSIVE MENSTRUATION ??? POLYCYSTIC KIDNEY NOS dx 2002 or 2003 ??? JAMIA CYSTIC LIVER DIS ??? ENDOMETRIOSIS dx with surgery ??? STOMACH ULCER NOS 2004 dx with endoscopy - placed on Protonix ??? DEPRESSIVE DISORDER NEC slight anxiety assoc Past Surgical History Procedure Date ??? Laparoscopic cholecystectomy 06/18/05 CHOLECYSTECTOMY, LAPAROSCOPIC ??? delivery only ONLY, LOW CERVICAL ??? Endoscopy 2005 dx ulcers Colonoscopy: patient does not meet age/health requirments at this time. Bone Density: does not meet age/health requirments at this time MEDICATIONS/ALLERGIES: Review of patient's allergies indicates: Sulfa drugs, Ancef and Dicloxacillin. Current outpatient prescriptions : IMITREX STATDOSE REFILL 6 MG/0.5ML SC KIT, USE DIRECTED, Disp: 1pk, Rfl: 1; AMBIEN 10 MG OR TABS, 1 TABLET AT BEDTIME NEEDED, Disp: 30, Rfl: 2; XANAX 1 MG OR TABS, 1 tab q. 6 hrs prn, Disp: 60, Rfl: 2. History Social History ??? Marital Status: Legally Spouse Name: N/A Number of Children: 2 ??? Years of Education: N/A Occupational History ??? 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 Tobacco Use: Never ??? Alcohol Use: No ??? Drug Use: No ??? Sexually Active: Yes -- Male partners Control/ Protection: Spermicide Other Topics Concern ??? [...] Yes walk ??? Seat Belt Yes ??? Self-exams No Social History Narrative ??? No narrative on file Nutrition is adequate. She does make good food choices, following weight watchers. Calcium intake: estimates approximately 1-2 dairy servings per day on average. Water intake is 4 to 5 glasses per day. She denies any history of domestic violence. REVIEW OF SYSTEMS: Constitutional: denies any fever, chills, or weight loss/gain. Eyes: denies any blurred/double vision or any pain/pressure in the eyes. ENT: denies any ear pain or drainage, sore throat, sinus pain or pressure, or nasal congestion Respiratory: denies any snoring, cough, wheezing, or shortness of breath. Cardiovascular: varicose veins Gastrointestional: denies any constipation, diarrhea, heartburn, rectal bleeding, nausea or vomiting, abdominal pain, difficulty swallowing, or loss of appetite. Genitourinary: recent recurrent UTI's, admits to having frequent intercourse with -since with him has had no further infections Musculoskeletal: denies any joint pain/stiffness, neck pain, back pain, or difficulty walking. Neurological: history of migraines Psychological: history of anxiety Skin/Breast: denies any rashes, itching, hives, skin or hair changes, breast pain or lumps, or nipple discharge Allergy: seasonal allergies Endocrine: denies any night sweats, being too hot or cold, excessive thirst or appetite, or fatigue. Hematological/Lymphatic: denies any swollen glands, easy bruising, frequent bleeding, or cuts that are slow to heal. GYNECOLOGICAL HISTORY: Menarche as a teenager. Last menstrual period 12/15/07. Periods described as heavy flow. Periods are regular q 28-30 days, lasting 5-7 days, with moderate clotting. Vangie denies breakthrough bleeding. Vangie admits to increasing dysmenorrhea, which is not controlled with tylenol-she uses advil(which she is not to use because of kidneys) with minimal relief. She deniesdyspaurenia. Vaginal discharge: denied. Obstetric History T2 P0 TAB0 SAB0 E0 M0 L2 Name of Baby 1 Not recorded ??? Outcome Date Not recorded GA 40 w ??? Outcome / Delivery Type section ??? at 1 min. Not recorded at 5 min. Not recorded ??? Is living? Yes Name of Baby 2 Not recorded ??? Outcome Date Not recorded GA 40 w ??? Outcome / Delivery Type section ??? at 1 min. Not recorded at 5 min. Not recorded ??? Is living? Yes She is sexually active with a single partner, using condoms and vaginal spermicide for contraception . STD History: Negative. Self breast exams: routine. Mammogram: several years ago. Last pap: 2005 Hx of abnormal pap: no. PHYSICAL EXAMINATION: Reveals a pleasant female in no acute distress. HEENT: Unremarkable on gross assessment. Ears/Nose/Throat: negative. Neck: Neck supple. No adenopathy. Thyroid symmetric, normal size, and without nodularity. Lungs: lungs clear to auscultation bilaterally.. Respiratory: No wheezing, rhonchi, or rales heard. Heart: RRR, no murmurs, clicks, gallops or rubs.. Breasts: Inspection negative. No nipple discharge or bleeding. No masses or nodularity palpable. Abdomen: Abdomen soft, non-tender. BS normal. No masses or organomegaly. Vagina: normal vagina and vulva and vagina is pink without physiological discharge present. Cervix: normal cervix without lesions, polyps, or tenderness. A pap smear was done today. Bimanual: uterus anteverted, uterus normal size, shape, consistency, no mass or tenderness and adnexa normal in size without mass or tenderness. IMPRESSION: 1. Preventative medicine exam performed 2. 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 3. Counseling included: breast self exams, mammography screening, use and side effects of OCP's, osteoporosis, adequate intake of calcium and vitamin D by reviewing current food sources as well as appropriate calcium supplements if needed, weight and nutritional management guidelines , the positivebenefits of regular aerobic exercise and she is given information regarding therapies for dysmenorrhea control. Consideration of using DepoProvera or mini pill for cycle control/paincontrol . 4. Medications/Labs/Vaccines: she will be informed of the pap.. 5. Return to the clinic annually or as needed. 6. Vangie leaves with no further questions or concerns. documented in this encounter Plan of Treatment Not on file documented as of this encounter Procedures Procedure Name Priority Date/Time Associated Diagnosis Comments CYTOPATH CERV/VAG INTERPRET (PAP SMEAR) Routine 12/29/2007 10:56 AM CDT documented in this encounter Results * CYTOPATH CERV/VAG INTERPRET (PAP SMEAR) (12/29/2007 10:56 AM CDT) COPATH REPORT ?[facility] ?[address] [place] [address] ? GYNECOLOGIC CYTOLOGY REPORT ? Name: VANGIE YUEN ?Specimen # : [id number] Age: 10 1970 (Age: 37) ?Location: [facility] Sex: F ? Procedure Date: 12/29/2007 Hospital #: [id number] ?Date Processed: 01/02/2008 [facility] Physician(s): Raysa Diehl ? Patient History: LMP: 12-15-07 Mentrual/Preg: Contraceptive: Other:Negative Cancer History: Pertinent History: Negative Treatment History: SPECIMEN: ??Clinic Screening Thin Prep Pap ADEQUACY: ??Satisfactory for Evaluation. DIAGNOSIS: ??NEGATIVE FOR INTRAEPITHELIAL LESIONS OR MALIGNANCY. Demetrius Álvarez (ASCP) Electronically Signed Out On 01/03/2008 ? This document has been printed from the electronic file of the [facility] Information System. This is not an official medical record copy. To obtain an official copy, please refer to the patient's permanent medical record at [facility]. [facility] 12/29/2007 10:5 6 AM CDT 01/02/2008 10:56 AM CDT us Raysa NIEVES PATHOLOGY/CYTOLOGY ORDERABLES Final Result [facility] documented in this encounter Visit Diagnoses Diagnosis Routine general medical examination at a health care facility- Primary documented in this encounter
--- OUTSIDE RECORDS SUMMARY | 2024-07-17 03:09 | XMS_ITS | Encounter Summary ---
Author Organization [facility] Address [address] [place] [address]. [place], [place] [address] [place] [address] Care Team Providers Care Education Dean Name Role Phone Unavailable Primary Care Provider Unavailabl e Reason for Visit * Reason Comments Recheck Encounter Details Date Type Department Care Team (Late st Contact Info) Description 10/25/2007 11:15 AM CDT Office Visit [address] [place] [address] Raquel Gracia MD [address] ?? [place] [address] Recheck Social History Tobacco Use Types Packs/Day Years [...] Industry Job Start Date Job End Date Not on file Not on file Not on file Not on file documented as of this encounter Last Filed Vital Signs Vital Sign Reading Time Taken Comments Blood Pressure 110/68 10/25/2007 11:15 AM CDT Pulse - - Temperature 36.7 ??C (98 ??F) 10/25/2007 11:15 AM CDT Respiratory Rate - - Oxygen Saturation - - Inhaled Oxygen Concentration - - Weight - - Height - - Body Mass Index - - documented in this encounter Progress Notes * Raquel Gracia - 11/03/2007 12:48 PM CDT Assistant Professor Of Nursing accepted by RAQUEL GRACIA on 11/03/2007 at 12:48 PM ------ CHIEF COMPLAINT: Followup UTI. SUBJECTIVE: Patient is a 37-year-old woman with a history of polycystic kidney, who had significantfrequent, urgent, burning urination. Came to clinic 2 days ago. Urinalysis showed a significant elevation of white blood cells and red blood cells. Concerned patient having UTI. Gave patient Macrobidtwice a day. Telephone followup patient this morning, and she states, last night, feel left- sided flank pain. Seems getting worse. Feel mild night sweats. Did not have nice sleep. Still having some frequent, urgent, burning urination, so asked patient to come back to clinic for reevaluation. In clinic, patient's temperature is normal. Patient denies any Tylenol or Ibuprofen taking in the past couple of days. She states left flank pain seems getting worse. Also feels some stomach uncomfortable. No vomiting. Patient walking in clinic on her own. Past Medical History Diagnosis Date ??? RHEUMATOID ARTHRITIS 1987 ??? EXCESSIVE MENSTRUATION ??? POLYCYSTIC KIDNEY NOS ??? JAMIA CYSTIC LIVER DIS ??? ENDOMETRIOSIS dx with surgery ??? STOMACH ULCER NOS 2004 dx with endoscopy - placed on Protonix ??? DEPRESSIVE DISORDER NEC slight anxiety assoc Current outpatient prescriptions Medication Sig ??? MACROBID 100 MG OR CAPS 1 CAPSULE EVERY 12 HOURS WITH FOOD ??? IMITREX STATDOSE REFILL 6 MG/0.5ML SC KIT USE DIRECTED ??? AMBIEN 10 MG OR TABS 1 TABLET AT BEDTIME NEEDED ??? XANAX 1 MG OR TABS 1 tab q. 6 hrs prn ??? FLUOXETINE HCL 20 MG OR TABS 1 TABLET EVERY MORNING ALLERGIES: SULFA, ANCEF, DICLOXACILLIN. OBJECTIVE: Vital signs: BP 110/68 Temp 98 ??F (36.7 ??C). Generally, in no acute distress, walking in clinic. HEENT: Normocephalic, atraumatic. PERRLA, EOMI. Pulmonary: Clear to auscultation. Cardiac: RRR, normal S1, S2, no murmur. Abdomen is soft. No significant suprapubic discomfort. Right sideCVAT negative. Left side, significant tender when tapping. Skin: No rash. Lower extremities: No edema. Cranial nerves II-XII grossly intact. No peripheral nerve deficit. LABS: Urinalysis shows white blood cells 0-3, red blood cells 0-3, significantly improved compared with 2 days ago. CBC within normal limits. Please refer to [facility] for numbers. ASSESSMENT: UTI, clinically symptoms worsening. PLAN: 1. Since patient having significant history of polycystic kidney and also complained clinically of continued frequent and urgent burning urination and the worsening of left flank pain, even though lab shows significant improvement, we still need to rule out pyelonephritis. We will schedule patient for ultrasound. We will follow up patient on ultrasound result in early afternoon. 2. Asked the patient to continue current antibiotics. May take Tylenol for symptom control and encouraged patient to continue pushing fluid. Plan been discussed with patient. Patient verbalized understanding and agrees to plan. DG/lma documented in this encounter Plan of Treatment Not on file documented as of this encounter Procedures Procedure Name Priority Date/Time Associated Diagnosis Comments US ABD REAL TIME COMPLETE Routine 10/25/2007 1:10 PM CDT URIN TRACT INFECTION NOS URINALYSIS, AUTO, COMPLETE STAT 10/25/2007 11:40 AM CDT COMPREHENSIVE METABOLIC PANEL Routine 10/25/2007 11:40 AM CDT CBC W/DIFF AUTOMATED STAT 10/25/2007 11:40 AM CDT documented in this encounter Results * US ABD REAL TIME COMPL (10/25/2007 1:10 PM CDT) Anatomical Region Laterality Modality Ultrasound Narrative 10/26/2007 12:29 PM CDT COMPLETE ABDOMINAL SONOGRAM HISTORY: ??Suspected left pyelonephritis in a patient with a history of polycystic liver and kidney disease. ??Comparison is to a CT scan of 11/12/05. FINDINGS: ?? 1. ??The kidneys show no evidence of hydronephrosis or obstruction. ??The cysts in the kidney are small and I do not see any obvious solid lesions. No perinephric fluid collections are apparent on this ultrasound exam and I do not see any subcapsular collections. ??No echogenic foci to suggest stones are seen. ?? 2. ??Multiple cysts are redemonstrated in the liver. ??No intrahepatic or extrahepatic biliary ductal dilatation is demonstrated. ??The common bile duct is under 5 mm in diameter. ??The gallbladder is surgically absent. ?? 3. ??The right kidney shows small cysts, but is otherwise unremarkable. ?? 4. ??The head, neck, and body of the pancreas are normal. ??The tail is not seen due to overlying bowel gas. ?? 5. ??There is no free fluid in the upper abdomen. 6. ??The spleen is normal. ?? IMPRESSION: ??Small cysts on both kidneys with more extensive cysts demonstrated in the liver consistent with the patient's prior history and not grossly changed from prior CT scan of 11/12/05. ??No evidence of obstruction or perinephric fluid that would complicate simple pyelonephritis. ??Findings are discussed with Dr. Gracia at the time of the exam. RHT/ania Procedure Note Imtiaz Villa - 10/26/2007 COMPLETE ABDOMINAL SONOGRAM HISTORY: Suspected left pyelonephritis in a patient with a history ofpolycystic liver and kidney disease. Comparison is to a CT scan of11/12/05. FINDINGS: 1. The kidneys show no evidence of hydronephrosis or obstruction. Thecysts in the kidney are small and I do not see any obvious solid lesions.No perinephric fluid collections are apparent on this ultrasound exam Bernardino do not see any subcapsular collections. No echogenic foci to suggeststones are seen. 2. Multiple cysts are redemonstrated in the liver. No intrahepatic orextrahepatic biliary ductal dilatation is demonstrated. The common bileduct is under 5 mm in diameter. The gallbladder is surgically absent. 3. The right kidney shows small cysts, but is otherwise unremarkable. 4. The head, neck, and body of the pancreas are normal. The tail is notseen due to overlying bowel gas. 5. There is no free fluid in the upper abdomen. 6. The spleen is normal. IMPRESSION: Small cysts on both kidneys with more extensive cystsdemonstrated in the liver consistent with the patient's prior history andnot grossly changed from prior CT scan of 11/12/05. No evidence ofobstruction or perinephric fluid that would complicate simplepyelonephritis. Findings are discussed with Dr. Gracia at the time of theexam. RHT/ania Raquel Gracia MD ULTRASOUND Final Result * (ABNORMAL) URINALYSIS, AUTO, W/SCOPE (10/25/2007 11:40 AM CDT) COLOR (U) YELLOW [facility] TRANSPARENCY CLEAR CLER [facility] U PH 6.5 5.0 - 9.0 [facility] SPECIFIC GRAVITY (U) 1.015 1.003 - 1.040 [facility] URINE GLUCOSE NEGATIVE NEG [facility] KETONE (U) NEGATIVE NEG [facility] PROTEIN NEGATIVE NEG [facility] BILIRUBIN (U) NEGATIVE NEG [facility] UROBILINOGEN 0.2 0.2 - 1.0 eu/dL [facility] BLOOD (U) TRACE(A) NEG [facility] LEUKOCYTES (U) TRACE(A) NEG [facility] NITRITES NEGATIVE NEG [facility] WBC/HPF 0-3 Z3 /hpf [facility] RBC/HPF 0-3 ZT3 /hpf [facility] EPI/HPF 0-3 /hpf [facility] BACTERIA (U) TRACE(A) NSEE [facility] MUCUS FEW [facility] 10/25/2007 11:4 0 AM CDT 10/25/2007 11:41 AM CDT Raquel Gracia MD URINE ORDERABLES Final Result [facility] [address] [facility] [address] * (ABNORMAL) CBC W/DIFF AUTOMATED (10/25/2007 11:40 AM CDT) WBC 6.9 3.0 - 10.5 k/uL [facility] ABS. LYMPHOCYTES 1.8 0.6 - 4.6 k/uL [facility] LYMPHOCYTES % 26.7 % [facility] ABS. MID CELLS 0.2 0 - 0.9 k/uL [facility] MID CELLS % 3.3 % [facility] ABS. NEUTROPHILS 4.8 1.5 - 7.9 k/uL [facility] NEUTROPHILS % 70.0 % [facility] RBC 4.53 3.70 - 5.20 m/uL [facility] HGB 13.3 11.8 - 15.8 g/dL [facility] HCT 39.0 35.0 - 46.0 % [facility] MCV 86.0 80.0 - 98.0 fL [facility] MCH 29.4 pg [facility] MCHC 34.1 g/dL [facility] RDW 15.4(H) 10.5 - 14.7 % [facility] PLT 238 140 - 440 K/uL [facility] MPV 10.80(H) 6.1 - 10.[address] [facility] 10/25/2007 11:4 0 AM CDT 10/25/2007 11:41 AM CDT us Raquel Gracia MD LABORATORY Final Result [facility] [address] [place] [address] * COMPREHENSIVE METABOLIC PANEL (10/25/2007 11:40 AM CDT) SODIUM S/P/B 140 133 - 142 mmol/L [facility] POTASSIUM S/P/B 4.0 3.5 - 5.3 mmol/L [facility] CHLORIDE S/P/B 106 99 - 111 mmol/L [facility] CO2 27 22 - 34 mmol/L [facility] BUN 8 7 - 20 mg/dL [facility] CREATININE S/P/B 0.8 0.6 - 1.3 mg/dL [facility] EGFR NON-AFR. AMER. >60 >60 mls/min. [facility] EGFR AFR. AMER. >60 >60 mls/min. [facility] CALCIUM S/P/B 9.1 8.5 - 10.1 mg/dL [facility] GLUCOSE 100 70 - 110 mg/dL [facility] TOTAL PROTEIN S/P/B 7.4 6.4 - 8.2 g/dL [facility] ALBUMIN S/P/B 3.7 3.4 - 5.0 g/dL [facility] AST 13 10 - 37 U/L [facility] ALT 31 30 - 65 U/L [facility] ALKALINE PHOSPHATASE S/P/B 79 50 - 136 U/L [facility] BILIRUBIN TOTAL S/P/B 0.8 0 - 1.0 mg/dL [facility] 10/25/2007 11:4 0 AM CDT 10/25/2007 11:41 AM CDT us Raquel Gracia MD LABORATORY Final Result Performing Organization Address City/State/[facility] Co de Phone Number [facility] [address] [place] [address] documented in this encounter Visit Diagnoses Diagnosis Urinary tract infection, site not specified- Primary Abdominal pain, other specified site documented in this encounter
--- OUTSIDE RECORDS SUMMARY | 2024-07-17 03:09 | XMS_ITS | Encounter Summary ---
Author Organization [facility] Address [address] [place] [address]. 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 [place], [place] [id number] PCP - General 10/30/09 10/30/09 None, MD Aurelio [facility] ?? [place] [address] PCP - General 03/11/14 Bakari Vasquez DO [address] [place] [address] PCP - General 01/31/13 03/10/14 Bakari Vasquez DO [address] [place] [address] PCP - General 01/25/13 01/30/13 Bakari Vasquez DO [address] [place] [address] PCP - General 01/21/13 01/24/13 Bakari Vasquez DO [address] [place] [address] PCP - General 01/09/13 01/20/13 Bakari Vasquez DO [address] [place] [address] PCP - General 01/03/13 01/08/13 Bakari Vasquez DO [address] [place] [address] PCP - General 01/01/13 01/02/13 Bakari Vasquez DO [address] [facility] [address] [place] [address] PCP - General 12/25/12 12/31/12 documented as of this encounter
--- OUTSIDE RECORDS SUMMARY | 2024-07-17 03:09 | XMS_ITS | Encounter Summary ---
Author Organization [facility] Address [address] [place] [address]. [place], [place] [address] [place] [address] Care Team Providers Care Aboriginal Home School Liaison Officer Name Role Phone Unavailable Primary Care Provider Unavailabl e Reason for Visit * Reason Onset Date Comments Refill Request 10/12/2007 immetrex injecta bles [facility] Encounter Details Date Type Department Care Team (Late st Contact Info) Description 10/12/[address] [place] [phone] Mee Hutchinson, TONGUE TRIMMER [address] [place] [address] Refill Request ([facility]metrex injectables [facility]) Social History Tobacco Use Types Packs/Day Years [...] as of this encounter Progress Notes * Sharla Sarkar - 10/12/2007 4:57 PM CDT Order received from Dr Watson. * Shalra Sarkar - 10/12/2007 2:24 PM CDT Needed to go to the ER for migraine, received an imitrex injection and a script for the starter kit. Got a much better response w the injectible and wanting rx for same. Plans to establish w Dr Watson. documented in this encounter Plan of Treatment Not on file documented as of this encounter Visit Diagnoses Not on filedocumented in this encounter
--- OUTSIDE RECORDS SUMMARY | 2024-07-17 03:09 | XMS_ITS | Encounter Summary ---
Author Organization [facility] Address [address] [place] [address]. 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 [place], [place] [id number] PCP - General 10/30/09 10/30/09 None, MD Aurelio [facility] [employer] [facility] ?? [place] [address] PCP - General 03/11/14 Bakari Vasquez DO [address] [place] [address] PCP - General 01/31/13 03/10/14 Bakari Vasquez DO [address] [place] [address] PCP - General 01/25/13 01/30/13 Bakari Vasquez DO [address] [place] [address] PCP - General 01/21/13 01/24/13 Bakari Vasquez DO [address] [place] [address] PCP - General 01/09/13 01/20/13 Bakari Vasquez DO [address] [place] [address] PCP - General 01/03/13 01/08/13 Bakari Vasquez DO [address] [place] [address] PCP - General 01/01/13 01/02/13 Bakari Vasquez DO [address] [facility] [address] [place] [address] PCP - General 12/25/12 12/31/12 documented as of this encounter
--- OUTSIDE RECORDS SUMMARY | 2024-07-17 03:09 | XMS_ITS | Encounter Summary ---
Author Organization [facility] Address [address] [place] [address]. [place], [place] [address] [place] [address] Care Team Providers Care Hotbed Operator Name Role Phone Unavailable Primary Care Provider Unavailabl e Encounter Details Date Type Department Care Team (Late st Contact Info) Description 06/10/2008 Orders Only [facility] [address] [facility] [place] [address] Raquel Gauthier MD [facility] [employer] ?? 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 Not on file Not on file documented as of this encounter Plan of Treatment Not on file documented as of this encounter Procedures Procedure Name Priority Date/Time Associated Diagnosis Comments OCCULT BLOOD, FECES,IMMUNO Routine 06/10/2008 1:34 PM BOX FEEDER Diarrhea documented in this encounter Results * OCCULT BLOOD, FECES,IMMUNO-VIAL COLLECT (06/10/2008 1:34 PM BOX FEEDER) OCCULT BLOOD FECAL NEGATIVE NEG [facility] Comment: New Automated Methodology as of [id number] Performed at the [facility] site COLLECTION DATE [id number] [facility] 06/10/2008 1:34 PM BOX FEEDER 06/10/2008 1:39 PM BOX FEEDER us Raquel Gauthier MD BODY FLUIDS AND STOOLS ORDERABLE S Final Result [facility] [address] [place] [address] documented in this encounter Visit Diagnoses Diagnosis Diarrhea documented in this encounter
--- OUTSIDE RECORDS SUMMARY | 2024-07-17 03:09 | XMS_ITS | Encounter Summary ---
Author Organization [facility] Address [address] [place] [address]. [place], [place] [address] [place] [address] Care Team Providers Care Macaroni Press Operator Name Role Phone Unavailable Primary Care Provider Unavailabl e Reason for Visit * Reason Onset Date Comments Medication 12/29/2007 Encounter Details Date Type Department Care Team (Late st Contact Info) Description 12/29/2007 Telephone [facility] [address] [place] [phone] Raysa Diehl APNP [address] 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 Roth regarding BCP for dysmenorrhea- LoEstrin 08/06 suggested. [facility] documented in this encounter Plan of Treatment Not on file documented as of this encounter Visit Diagnoses Not on filedocumented in this encounter
--- OUTSIDE RECORDS SUMMARY | 2024-07-17 03:09 | XMS_ITS | Encounter Summary ---
Author Organization [facility] Address [address] [place] [address]. [place], [place] [address] [place] [address] Care Team Providers Care Hedis Analyst Name Role Phone Unavailable Primary Care Provider Unavailabl e Reason for Visit * Reason Onset Date Comments FYI 07/15/2008 PT WAS ADMITTED TODAY 07/15/08. Encounter Details Date Type Department Care Team (Late Contact Info) Description 07/15/2008 Telephone [facility] [address] [facility] [place] [address] Raquel Gauthier MD [address] ?? 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 Gauthier aware. INIST SUPERVISOR OUTSIDE documented in this encounter Plan of Treatment Not on file documented as of this encounter Visit Diagnoses Not on filedocumented in this encounter
--- OUTSIDE RECORDS SUMMARY | 2024-07-17 03:09 | XMS_ITS | Encounter Summary ---
Author Organization [facility] Address [address] [place] [address]. [place], [place] [address] [place] [address] Care Team Providers Care Sap Portal Architect Name Role Phone Unavailable Primary Care Provider Unavailabl e Reason for Visit * Reason Onset Date Comments Letter 06/28/2008 STATING SHE WAS DETAINED AT [facility] Encounter Details Date Type Department Care Team (Late st Contact Info) Description 06/28/2008 Telephone [facility] [address] [facility] [place] [address] Raquel Gauthier MD [address] [employer] ?? 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 She states she was unable to leave there. Discussed because Dr. Gauthier not involved in that part of her care she needs to contact [facility] for assistance. If can't get the information she needs from them will call the clinic back for further asisstance. ON SAMPLER documented in this encounter Plan of Treatment Not on file documented as of this encounter Visit Diagnoses Not on filedocumented in this encounter
--- OUTSIDE RECORDS SUMMARY | 2024-07-17 03:09 | XMS_ITS | Encounter Summary ---
Author Organization [facility] Address [address] [place] [address]. [place], [place] [address] [place] [address] Care Team Providers Care Hose Coupling Joiner Name Role Phone Unavailable Primary Care Provider Unavailabl e Reason for Visit * Reason Onset Date Comments Psychiatric Problem 06/14/2008 mom reports pt is suicidal Encounter Details Date Type Department Care Team (Late st Contact Info) Description 06/14/2008 Nurse Triage [facility] [address] [place] [address] Raquel Gauthier MD [address] [email or web address] ?? 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 Phoned back, Mom Michelle answered. She states that she has arranged for Vangie's to meet them at the ER to roll picker the kids, and they are leaving out the door now, Vangie wants to go in. Reassured and encouraged re: this is a courageous decision and they are doing the right thing. TRIC MOTOR ASSEMBLER AND TESTER documented in this encounter Plan of Treatment Not on file documented as of this encounter Visit Diagnoses Not on filedocumented in this encounter
--- OUTSIDE RECORDS SUMMARY | 2024-07-17 03:09 | XMS_ITS | Encounter Summary ---
Author Organization [facility] Address [address] [place] [address]. [place], [place] [address] [place] [address] Care Team Providers Care Microsoft Exchange Administrator Name Role Phone Raquel Gauthier MD Primary Care Provider [phone] None, Provider Primary Care Provider Unavaila ble Manarang, Don DO Primary Care Provider [phone] Manarang, Don DO Primary Care Provider [phone] Manarang, Don DO Primary Care Provider [phone] Manarang, Don DO Primary Care Provider [phone] Manarang, Don DO Primary Care Provider [phone] Manarang, Don DO Primary Care Provider [phone] Manarang, Don DO Primary Care Provider [phone] Reason for Visit * Reason Comments ER Note (SCAN) [facility] Encounter Details Date Type Department Care Team (Late st Contact Info) Description [facility] [address] [place] [phone] Scanned, Documents ER Note (SCAN) ([facility]INE -- [facility]) Social History Tobacco Use Types Packs/Day Years [...] 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 [place], [place] [id number] PCP - General 10/30/09 10/30/09 None, MD Aurelio [facility] [employer] ?? [place] [address] PCP - General 03/11/14 Bakari Vasquez DO [address] [place] [address] PCP - General 01/31/13 03/10/14 Bakari Vasquez DO [address] [place] [address] PCP - General 01/25/13 01/30/13 Bakari Vasquez DO [address] [place] [address] PCP - General 01/21/13 01/24/13 Bakari Vasquez DO [address] [place] [address] PCP - General 01/09/13 01/20/13 Bakari Vasquez DO [address] [place] [address] PCP - General 01/03/13 01/08/13 Bakari Vasquez DO [address] [facility] [address] [place] [address] PCP - General 01/01/13 01/02/13 Bakari Vasquez DO [address] [facility] [address] [place] [address] PCP - General 12/25/12 12/31/12 documented as of this encounter
--- OUTSIDE RECORDS SUMMARY | 2024-07-17 03:09 | XMS_ITS | Encounter Summary ---
Author Organization [facility] Address [address] [place] [address]. [place], [place] [address] [place] [address] Care Team Providers Care Financial Center Manager Name Role Phone Unavailable Primary Care Provider Unavailabl e Reason for Visit * Reason Onset Date Comments Forms 09/04/2007 PT DROPPED OFF F ORMS - FOR MEDICAL LEAVE - 200 HOURS PER PT ON FORM - FAX # [phone] - ATTN: [facility] Encounter Details Date Type Department Care Team (Late st Contact Info) Description 09/04/2007 Telephone [facility] [address] [place] [address] Mee Hutchinson, AUTOMATIC GLUING MACHINE OPERATOR [address] [place] [address] Forms (PT DROPPED OFF FORMS - FOR MEDICAL LEAVE - 200 HOURS PER PT ON FORM - FAX # [phone] - ATTN: [facility] ) Social History Tobacco Use Types Packs/Day [...] as of this encounter Progress Notes * Kyler Fitzgerald - 11/23/2007 2:52 PM CDT * Marcy Rod - 09/11/2007 1:07 PM CST Forms faxed and pt notified. T BUYING GRADER * Marcy Rod - 09/08/2007 1:28 PM CST When forms are finished they are to be faxed: Attention Michelle Barragan [phone], and pt is to be notified that forms have been completed and faxed. T BUYING GRADER * Marcy Rod - 09/08/2007 1:17 PM CST Forms are on Lona's desk. Pt notified. T BUYING GRADER * Koki Miramontes - 09/08/2007 12:13 PM CST Do you know anything about her forms? Use her cell when calling back. T BUYING GRADER * Marcy Rod - 09/04/2007 3:30 PM CST Forms given to Lona. T BUYING GRADER documented in this encounter Plan of Treatment Not on file documented as of this encounter Visit Diagnoses Not on filedocumented in this encounter
--- OUTSIDE RECORDS SUMMARY | 2024-07-17 03:09 | XMS_ITS | Encounter Summary ---
Author Organization [facility] Address [address] [place] [address]. [place], [place] [address] [place] [address] Care Team Providers Care Electrical Sign Wirer Helper Name Role Phone Unavailable Primary Care Provider Unavailabl e Reason for Visit * Reason Onset Date Comments Refill Request 04/16/2008 PBJ Concierge [facility] Encounter Details Date Type Department Care Team (Late st Contact Info) Description 04/16/2008 Telephone [facility] [address] [facility] [place] [address] Raquel Gauthier MD [address] [employer] ?? 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 Okay per Dr. Gauthier to fill as requested. documented in this encounter Plan of Treatment Not on file documented as of this encounter Visit Diagnoses Not on filedocumented in this encounter
--- OUTSIDE RECORDS SUMMARY | 2024-07-17 03:09 | XMS_ITS | Encounter Summary ---
Author Organization [facility] Address [address] [place] [address]. [place], [place] [address] [place] [address] Care Team Providers Care Service Specialist Name Role Phone Unavailable Primary Care Provider Unavailabl e Reason for Visit * Reason Onset Date Comments UTI 11/23/2007 UTI IS BACK - SA ME SYMPTOMS - WAS SEEN ON October Encounter Details Date Type Department Care Team (Late st Contact Info) Description 11/23/2007 Telephone [facility] [address] [facility] [place] [place] [address] Raquel Gauthier MD [address] [employer] ?? [place] [address] UTI (UTI IS BACK - SAME SYMPTOMS - WAS SEEN ON October) Social History Tobacco Use Types Packs/Day Years [...] encounter Progress Notes * Koki Coyle - 11/23/2007 9:33 AM CDT ? Bladder infection. Burning and sore stomach. No fever. Similar sx that has had in past. Discussedthat needs to be seen. [place] so would like to be seen there. Appmargret Cassidy 11/23/07 at 10:15 AM documented in this encounter Plan of Treatment Not on file documented as of this encounter Visit Diagnoses Not on filedocumented in this encounter
--- OUTSIDE RECORDS SUMMARY | 2024-07-17 03:09 | XMS_ITS | Encounter Summary ---
Author Organization [facility] Address [address] [place] [address]. [place], [place] [address] [place] [address] Care Team Providers Care Asphalt Paving Supervisor Name Role Phone Unavailable Primary Care Provider Unavailabl e Reason for Visit * Reason Onset Date Comments UTI 10/25/2007 Uti sx are getti ng worse. Encounter Details Date Type Department Care Team (Late st Contact Info) Description 10/25/2007 Telephone [facility] [address] [facility] [place] [address] Raquel Gauthier MD [address] ?? [place] [address] UTI (Uti sx are getting worse.) Social History Tobacco Use Types Packs/Day Years [...] as of this encounter Progress Notes * Grant Wynn - 10/25/2007 9:54 AM CDT Per Kaleb Gauthier, needs appt today. Pt aware and appt at 11:15am. Adv ER if sxs worsen prior to appt. * Grant Wynn - 10/25/2007 9:47 AM CDT Pt calling states is not feeling any better. Mod lower back pain in the kidney area. Afebrile. Feltfeverish last noc. Denies hematuria. Nauseated. Taking the Macrobid as dir. Did not sleep last noc.Please adv. Hx polycystic kidney disease. documented in this encounter Plan of Treatment Not on file documented as of this encounter Visit Diagnoses Not on filedocumented in this encounter
--- OUTSIDE RECORDS SUMMARY | 2024-07-17 03:09 | XMS_ITS | Encounter Summary ---
Author Organization [facility] Address [address] [place] [address]. [place], [place] [address] [place] [address] Care Team Providers Care Airport Refueling Handler Name Role Phone Unavailable Primary Care Provider Unavailabl e Reason for Visit * Reason Onset Date Comments Refill Request 05/28/2008 out of xanax, montero ving a really bad panic attack Encounter Details Date Type Department Care Team (Late st Contact Info) Description 05/28/2008 Nurse Triage [facility] [address] [place] [address] Raquel Gauthier MD [facility] [address] ?? 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 No answer. Call closed. D DEVELOPMENT ASSISTANT * Koki Guerra - 05/28/2008 8:31 PM CST 8:31 pm 2nd attempt - no answer. D DEVELOPMENT ASSISTANT * Koki Guerra - 05/28/2008 8:16 PM CST 8:16 pm - 1st attempt. Left msg. On ans. Machine. D DEVELOPMENT ASSISTANT documented in this encounter Plan of Treatment Not on file documented as of this encounter Visit Diagnoses Not on filedocumented in this encounter
--- OUTSIDE RECORDS SUMMARY | 2024-07-17 03:09 | XMS_ITS | Encounter Summary ---
Author Organization [facility] Address [address] [place] [address]. [place], [place] [address] [place] [address] Care Team Providers Care Tube Coverer Name Role Phone Unavailable Primary Care Provider Unavailabl e Encounter Details Date Type Department Care Team (Late st Contact Info) Description 06/10/2008 Orders Only [facility] [address] [facility] [place] [address] Raquel Gauthier MD [facility] [employer] ?? [place], [place] [id number] Social History Tobacco Use Types Packs/Day Years [...] Name Priority Date/Time Associated Diagnosis Comments CULTURE STOOL Routine 06/10/2008 1:33 PM WORKFORCE SERVICES REPRESENTATIVE documented in this encounter Results * CULTURE STOOL (06/10/2008 1:33 PM WORKFORCE SERVICES REPRESENTATIVE) SPEC DESCRIPTION STOOL [facility] SPECIAL REQUESTS NONE [facility] CULTURE RESULT NEGATIVE FOR SALMONELLA,S HIGELLA,CAMP Y AND ECOLI O157 [facility] REPORT STATUS FINAL 06/13/2008 [facility] Stool specimen (specimen) 06/10/2008 1:33 PM WORKFORCE SERVICES REPRESENTATIVE 06/10/2008 1:38 PM WORKFORCE SERVICES REPRESENTATIVE us Raquel Gauthier MD MICROBIOLOGY - GENERAL ORDERABLE S Final Result Performing Organization Address City/State/[facility] Co de Phone Number [facility] [address] [place] [phone] [facility] [address] [place] [phone] documented in this encounter Visit Diagnoses Not on filedocumented in this encounter
--- OUTSIDE RECORDS SUMMARY | 2024-07-17 03:09 | XMS_ITS | Encounter Summary ---
Author Organization [facility] Address [address] [place] [address]. [place], [place] [address] [place] [address] Care Team Providers Care Police And Fire Dispatcher Name Role Phone Raquel Gauthier MD Primary Care Provider [phone] None, Provider Primary Care Provider Unavaila ble [...] Care Team (Late st Contact Info) Description 09/15/2007 [facility] Health Information Management [address] [place] [address] Sheila Inman MD Social History Tobacco Use Types Packs/Day [...] on filedocumented in this encounter Care Teams Police And Fire Dispatcher Relationship Specialty Start Date End Date Raquel Gauthier MD [facility] ?? [place] [address] PCP - General 10/30/09 10/30/09 None, MD Aurelio [facility] [employer] [facility] ?? [place] [address] PCP - General 03/11/14 Bakari Vasquez DO [address] [place] [address] PCP - General 01/31/13 03/10/14 Bakari Vasquez DO [address] [place] [address] PCP - General 01/25/13 01/30/13 Bakari Vasquez DO [address] [place] [address] PCP - General 01/21/13 01/24/13 Bakari Vasquez DO [address] [place] [address] PCP - General 01/09/13 01/20/13 Bakari Vasquez DO [address] [place] [address] PCP - General 01/03/13 01/08/13 Bakari Vasquez DO [address] [place] [address] PCP - General 01/01/13 01/02/13 Bakari Vasquez DO [address] [facility] [address] [place] [address] PCP - General 12/25/12 12/31/12 documented as of this encounter
--- OUTSIDE RECORDS SUMMARY | 2024-07-17 03:09 | XMS_ITS | Encounter Summary ---
Author Organization [facility] Address [address] [place] [address]. [place], [place] [address] [place] [address] Care Team Providers Care Mash Processing Operator Name Role Phone Unavailable Primary Care Provider Unavailabl e Reason for Visit * Reason Onset Date Comments Forms 09/09/2008 FMLA FROM 06/05 - 06/11 CALL WHEN READY AND SHE WILL SCHOOL COOK Encounter Details Date Type Department Care Team (Late st Contact Info) Description 09/09/[address] [place] [phone] Raquel Gauthier MD [address] ?? 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 Copy printed and ready for picker feeder. L DEVELOPER L DEVELOPER documented in this encounter Plan of Treatment Not on file documented as of this encounter Visit Diagnoses Not on filedocumented in this encounter
--- OUTSIDE RECORDS SUMMARY | 2024-07-17 03:09 | XMS_ITS | Encounter Summary ---
Author Organization [facility] Address [address] [place] [address]. [place], [place] [address] [place] [address] Care Team Providers Care Internet Security Specialist Name Role Phone Raquel Gauthier MD Primary Care Provider [phone] None, Provider Primary Care Provider Unavaila ble [...] Visit * Reason Comments ER Note (SCAN) ABDOMINAL PAIN -- [facility] Encounter Details Date Type Department Care Team (Late st Contact Info) Description 05/27/2008 [facility] [address] [place] [phone] Scanned, Documents ER Note (SCAN) (ABDOMINAL PAIN -- [facility]) Social History Tobacco Use Types [...] 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 [place], [place] [id number] PCP - General 10/30/09 10/30/09 None, MD [facility] [employer] ?? [place] [address] PCP - General 03/11/14 Bakari Vasquez DO [address] [place] [address] PCP - General 01/31/13 03/10/14 Bakari Vasquez DO [address] [place] [address] PCP - General 01/25/13 01/30/13 Bakari Vasquez DO [address] [place] [address] PCP - General 01/21/13 01/24/13 Bakari Vasquez DO [address] [place] [address] PCP - General 01/09/13 01/20/13 Bakari Vasquez DO [address] [place] [address] PCP - General 01/03/13 01/08/13 Bakari Vasquez DO [address] [facility] [address] [place] [address] PCP - General 01/01/13 01/02/13 Bakari Vasquez DO [address] [facility] [address] [place] [address] PCP - General 12/25/12 12/31/12 documented as of this encounter
--- OUTSIDE RECORDS SUMMARY | 2024-07-17 03:09 | XMS_ITS | Encounter Summary ---
Author Organization [facility] Address [address] [place] [address]. [place], [place] [address] [place] [address] Care Team Providers Care Barrel Dedenting Machine Operator Name Role Phone Raquel Gauthier MD Primary Care Provider [phone] None, Provider Primary Care Provider Unavaila ble [...] [phone] Reason for Visit * Reason Comments Discharge Summary (SCAN) [facility] Encounter Details Date Type Department Care Team (Late st Contact Info) Description 07/15/2008 Hospital [facility] BUSINESS [facility]ICE [address] [place] [phone] Scanned, Documents Discharge Summary (SCAN) ([facility]) Social History Tobacco Use Types Packs/Day Years [...] 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 [place], [place] [id number] PCP - General 10/30/09 10/30/09 None, MD [facility] [place] [address] PCP - General 03/11/14 Bakari Vasquez DO [address] [place] [address] PCP - General 01/31/13 03/10/14 Bakari Vasquez DO [address] [place] [address] PCP - General 01/25/13 01/30/13 Bakari Vasquez DO [address] [place] [address] PCP - General 01/21/13 01/24/13 Bakari Vasquez DO [address] [place] [address] PCP - General 01/09/13 01/20/13 Bakari Vasquez DO [address] [place] [address] PCP - General 01/03/13 01/08/13 Bakari Vasquez DO [address] [facility] [address] [place] [address] PCP - General 01/01/13 01/02/13 Bakari Vasquez DO [address] [facility] [address] [place] [address] PCP - General 12/25/12 12/31/12 documented as of this encounter
--- OUTSIDE RECORDS SUMMARY | 2024-07-17 03:09 | XMS_ITS | Encounter Summary ---
Author Organization [facility] Address [address] [place] [address]. [place], [place] [address] [place] [address] Care Team Providers Care Chef German Name Role Phone Unavailable Primary Care Provider Unavailabl e Encounter Details Date Type Department Care Team (Late st Contact Info) Description 06/10/2008 Orders Only [facility] [address] [facility] [place] [address] Raquel Gauthier MD [facility] [employer] ?? 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 RVISOR [employer] TEXTILE documented in this encounter Plan of Treatment Not on file documented as of this encounter Procedures Procedure Name Priority Date/Time Associated Diagnosis Comments CRYPTOSPOR/GIARDIA AG, EIA Routine 06/10/2008 1:34 PM SUPERVISOR ASBESTOS TEXTILE Diarrhea documented in this encounter Results * CRYPTOSPOR/GIARDIA AG, EIA (06/10/2008 1:34 PM SUPERVISOR ASBESTOS TEXTILE) CRYPTOSPORIDIUM ANTIGEN (STOOL)DONT USE NEGATIVE NEG [facility] GIARDIA ANTIGEN (STOOL) NEGATIVE NEG [facility] 06/10/2008 1:34 PM SUPERVISOR ASBESTOS TEXTILE 06/10/2008 1:39 PM SUPERVISOR ASBESTOS TEXTILE us Raquel Gauthier MD BODY FLUIDS AND STOOLS ORDERABLE S Final Result [facility] [address] [place] [address] documented in this encounter Visit Diagnoses Diagnosis Diarrhea documented in this encounter
--- OUTSIDE RECORDS SUMMARY | 2024-07-17 03:09 | XMS_ITS | Encounter Summary ---
Author Organization [facility] Address [address] [place] [address]. [place], [place] [address] [place] [address] Care Team Providers Care Pricing Intern Name Role Phone Unavailable Primary Care Provider Unavailabl e Reason for Visit * Reason Onset Date Comments Nausea 05/28/2008 is very sick and went [facility] last night but wants to be seen again today will cancel appt with dr gauthier today Encounter Details Date Type Department Care Team (Late st Contact Info) Description 05/28/2008 Telephone [facility] [address] [facility] [place] [address] Raquel Gauthier MD [address] ?? 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 N/V/D - she hasn't drank anything yet this morning. Did go back to [facility] ER this morning and was given Ativan and Zofran for nausea along w/IVF for dehydration. Advised to f/u w/PCP in a couple of days. Transferred to [facility] to schedule ER f/u appt. [facility] ER records from this morning also requested. AIDE * Alecia Huynh RN - 05/28/2008 7:47 AM CST [facility] ER records requested. AIDE documented in this encounter Plan of Treatment Not on file documented as of this encounter Visit Diagnoses Not on filedocumented in this encounter
--- OUTSIDE RECORDS SUMMARY | 2024-07-17 03:09 | XMS_ITS | Encounter Summary ---
Author Organization [facility] Address [address] [place] [address]. [place], [place] [address] [place] [address] Care Team Providers Care Embedded Software Programmer Name Role Phone Unavailable Primary Care Provider Unavailabl e Reason for Visit * Reason Onset Date Comments Diarrhea 06/10/2008 Still has diarrh ea-has lost 5 # since her appt. last week. Also her sinus infection has not improved. Encounter Details Date Type Department Care Team (Late st Contact Info) Description 06/10/2008 Telephone [facility] [address] [place] [address] Raquel Gauthier MD [address] ?? [place] [address] Diarrhea (Still has diarrhea-has lost 5 # since her appt. last week. 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 Tuesday was alittle better but continues to have diarrhea.Sinuses also no better. Still has pressure and ALONZO. Had to leave work early yesterday because of thediarrhea. Needs work excuse. Also vomitting is better today but still has diarrhea continuous. Is taking Immodium. Doesn't think can make it into work today for 11:00 AM. Has a hx of ulcer and getting reflux bad. Thinks from [place]. Wondering if can get work excuse and different medication. Works at [employer]. Per Dr. Gauthier okay to give off of work and also need to stool culture and O and P and should referto GI. Pt informed of this and will come and picker box operator info at clinic. Also agreeable to refer to GI.And will fax work excuse to [phone]. Pt aware and will picker box operator for testing stool. MIXING OPERATOR documented in this encounter Plan of Treatment Not on file documented as of this encounter Results * OCCULT BLOOD, FECES,IMMUNO-VIAL COLLECT (06/10/2008 1:34 PM SEAL MIXING OPERATOR) OCCULT BLOOD FECAL NEGATIVE NEG [facility] Comment: New Automated Methodology as of [id number] Performed at the [facility] site COLLECTION DATE [id number] [facility] 06/10/2008 1:34 PM SEAL MIXING OPERATOR 06/10/2008 1:39 PM SEAL MIXING OPERATOR Raquel Gauthier MD BODY FLUIDS AND STOOLS ORDERABLE S Final Result [facility] [address] [place] [address] * CRYPTOSPOR/GIARDIA AG, EIA (06/10/2008 1:34 PM SEAL MIXING OPERATOR) CRYPTOSPORIDIUM ANTIGEN (STOOL)DONT USE NEGATIVE NEG [facility] GIARDIA ANTIGEN (STOOL) NEGATIVE NEG [facility] 06/10/2008 1:34 PM SEAL MIXING OPERATOR 06/10/2008 1:39 PM SEAL MIXING OPERATOR Raquel Gauthier MD BODY FLUIDS AND STOOLS ORDERABLE S Final Result [facility] [address] [place] [address] documented in this encounter Visit Diagnoses Diagnosis Diarrhea- Primary documented in this encounter
--- OUTSIDE RECORDS SUMMARY | 2024-07-17 03:09 | XMS_ITS | Encounter Summary ---
Author Organization [facility] Address [address] [place] [address]. [place], [place] [address] [place] [address] Care Team Providers Care Health Information Systems Technician Name Role Phone Unavailable Primary Care Provider Unavailabl e Reason for Visit * Reason Onset Date Comments Refill Request 06/25/2008 ambien/ [facility] Encounter Details Date Type Department Care Team (Late st Contact Info) Description 06/25/2008 Telephone [facility] [address] [facility] [place] [address] Raquel Gauthier MD [address] [employer] ?? 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 Per Dr. Gauthier because was recently in [facility] needs to be seen. Willing to give #5 of the AMbien 5 mg if needed. Pt has 2 pills of the 10 mg left and is pretty much taking one nightly. Pt willing to schedule. Does have an appt with the Psychiatrist on 07/05/08.Will schedule appt on 06/26/08. Pt will discuss refills at appt tomorrow and will bring med bottles into clinic for review. HANGER documented in this encounter Plan of Treatment Not on file documented as of this encounter Visit Diagnoses Not on filedocumented in this encounter
--- OUTSIDE RECORDS SUMMARY | 2024-07-17 03:09 | XMS_ITS | Encounter Summary ---
Author Organization [facility] Address [address] [place] [address]. [place], [place] [address] [place] [address] Care Team Providers Care Physician Coder Name Role Phone Unavailable Primary Care Provider Unavailabl e Reason for Visit * Reason Comments Outside Record (SCAN) [facility] Encounter Details Date Type Department Care Team (Late st Contact Info) Description 07/19/2008 Scan [facility] BUSINESS OFFICE [address] [place] [phone] Scanned, Documents Outside Record (SCAN) ([facility]) Social History Tobacco Use Types Packs/Day Years [...] encounter Progress Notes * Kyler Fitzgerald - 08/07/2008 1:13 PM UTILITY SYSTEM REPAIRER ITY SYSTEM REPAIRER documented in this encounter Plan of Treatment Not on file documented as of this encounter Visit Diagnoses Not on filedocumented in this encounter
--- OUTSIDE RECORDS SUMMARY | 2024-07-17 03:09 | XMS_ITS | Encounter Summary ---
Author Organization [facility] Address [address] [place] [address]. 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 [place], [place] [id number] PCP - General 10/30/09 10/30/09 None, MD [facility] ?? [place] [address] PCP - General 03/11/14 Bakari Vasquez DO [address] [place] [address] PCP - General 01/31/13 03/10/14 Bakari Vasquez DO [address] [place] [address] PCP - General 01/25/13 01/30/13 Bakari Vasquez DO [address] [place] [address] PCP - General 01/21/13 01/24/13 Bakari Vasquez DO [address] [place] [address] PCP - General 01/09/13 01/20/13 Bakari Vasquez DO [address] [place] [address] PCP - General 01/03/13 01/08/13 Bakari Vasquez DO [address] [place] [address] PCP - General 01/01/13 01/02/13 Bakari Vasquez DO [address] [facility] [address] [place] [address] PCP - General 12/25/12 12/31/12 documented as of this encounter
--- OUTSIDE RECORDS SUMMARY | 2024-07-17 03:09 | XMS_ITS | Encounter Summary ---
Author Organization [facility] Address [address] [place] [address]. 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 on file Not on file documented as of this encounter Progress Notes * Kyler Fitzgerald - 06/05/2008 11:33 AM CSTAssociated Order(s): OUTSIDE LAB (SCAN) L DRAFTER documented in this encounter Plan of Treatment Not on file documented as of this encounter Procedures Procedure Name Priority Date/Time Associated Diagnosis Comments OUTSIDE LAB (SCAN ORDER) Routine 05/28/2008 documented in this encounter Results * OUTSIDE LAB (05/28/2008) 05/28/2008 Narrative Procedure Note Zscanned, Documents - 06/05/2008 11:33 AM CIVIL DRAFTER us Documents Scanned SCANNING Final Result documented in this encounter Visit Diagnoses Not on filedocumented in this encounter
--- OUTSIDE RECORDS SUMMARY | 2024-07-17 03:09 | XMS_ITS | Encounter Summary ---
Author Organization [facility] Address [address] [place] [address]. [place], [place] [address] [place] [address] Care Team Providers Care Rda Name Role Phone Raquel Gauthier MD Primary Care Provider [phone] None, Provider Primary Care Provider Unavaila ble Manarang, Don DO Primary Care Provider [phone] Manarang, Don DO Primary Care Provider [phone] Manarang, Don DO Primary Care Provider [phone] Manarang, Don DO Primary Care Provider [phone] Manarang, Don DO Primary Care Provider [phone] Manarang, Don DO Primary Care Provider [phone] Manarang, Don DO Primary Care Provider [phone] Reason for Visit * Reason Comments Hospital H&P (SCAN) [facility] Encounter Details Date Type Department Care Team (Late st Contact Info) Description 07/14/2008 [facility] [address] [place] [phone] Scanned, Documents Hospital H&P (SCAN) ([facility]) Social History Tobacco Use Types Packs/Day Years [...] 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 [place], [place] [phone] PCP - General 10/30/09 10/30/09 None, MD A[facility] ?? [place] [address] PCP - General 03/11/14 Bakari Vasquez DO [address] [place] [address] PCP - General 01/31/13 03/10/14 Bakari Vasquez DO [address] [place] [address] PCP - General 01/25/13 01/30/13 Bakari Vasquez DO [address] [place] [address] PCP - General 01/21/13 01/24/13 Bakari Vasquez DO [address] [place] [address] PCP - General 01/09/13 01/20/13 Bakari Vasquez DO [address] [place] [address] PCP - General 01/03/13 01/08/13 Bakari Vasquez DO [address] [facility] [address] [place] [address] PCP - General 01/01/13 01/02/13 Bakari Vasquez DO [address] [facility] [address] [place] [address] PCP - General 12/25/12 12/31/12 documented as of this encounter
--- OUTSIDE RECORDS SUMMARY | 2024-07-17 03:09 | XMS_ITS | Encounter Summary ---
Author Organization [facility] Address [address] [place] [address]. [place], [place] [id number] [place] [address] Care Team Providers Care Jv Baseball Coach Name Role Phone Unavailable Primary Care Provider Unavailabl e Reason for Visit * Reason Comments Urine dysuria Encounter Details Date Type Department Care Team (Late st Contact Info) Description 11/23/2007 10:15 AM CDT Office Visit [address] [phone] Toma Cassidy, AMBULANCE PARAMEDIC [address] [place] [address] Urine (dysuria) Social History Tobacco Use Types Packs/Day Years [...] Sign Reading Time Taken Comments Blood Pressure 126/76 11/23/2007 10:33 AM CDT (from Extended Vitals) Pulse - - Temperature 36.7 ??C (98 ??F) 11/23/2007 10: 15 AM CDT Respiratory Rate - - Oxygen Saturation - - Inhaled Oxygen Concentration - - Weight 104.3 kg (230 lb) 11/23/2007 10: 15 AM CDT Height - - Body Mass Index 34.46 05/20/2006 1:00 PM JAIL OFFICER documented in this encounter Progress Notes * Toma Cassidy - 11/23/2007 10:47 AM CDT SUBJECTIVE: Vangie Yuen is a 37-year-old female patient who presents with dysuria, frequency, urgency, chills and nausea for 24 hours. She denies flank pain, fever, or abnormal vaginal discharge or bleeding. She has increased her water and cranberry juice intake. She recently had a UTI one month ago and was treated with Macrobid with complete resolution of her symptoms. Prior to that she had a UTI years ago. She has a history of polycystic kidney disease. She remembers to empty her bladder after intercourse; does not use bubble bath and wears white cotton underwear. LMP: 11/13/07. 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 She is a non-smoker. She states that her 17-year-old daughter was diagnosed in Jul with a non-Hodgkin's lymphoma and has undergone chemo and radiation and is doing well, but recently had biopsies done on some moles on her chest and arm. She does feel stressed out by all of this, but feels that they have come through the worst of it. Past Medical History Diagnosis Date ??? RHEUMATOID [...] LOW CERVICAL ??? Endoscopy 2005 dx ulcers Current outpatient prescriptions Medication Sig ??? IMITREX STATDOSE REFILL 6 MG/0.5ML SC KIT USE DIRECTED ??? AMBIEN 10 MG OR TABS 1 TABLET AT BEDTIME NEEDED ??? XANAX 1 MG OR TABS 1 tab q. 6 hrs prn ??? FLUOXETINE HCL 20 MG OR TABS 1 TABLET EVERY MORNING OBJECTIVE: Blood pressure 126/76, temperature 98 ??F (36.7 ??C), weight 230 lbs (104.327 kg). Alertand bright. Appears well, in no apparent distress. Ear canals are clear; no cervical adenopathy; thyroid is non-tender without masses; oropharynx is pink without lesions. Lungs are clear with good air exchange. Heart: RRR without murmur. Abdomen is large, rounded, soft with mild tenderness in suprapubic region; no masses, organomegaly or guarding. No CVA tenderness Urinalysis: Results for orders placed on 11/23/2007 URINALYSIS, AUTO, W/SCOPE Component Value Range ??? COLOR YELLOW - ??? TRANSPARENCY CLOUDY (*) CLER- ??? U PH 6.0 5.0-9.0 ??? U SP. GRAVITY 1.025 1.003-1.040 ??? URINE GLUCOSE NEGATIVE NEG- ??? KETONE NEGATIVE NEG- ??? PROTEIN 2+ (*) NEG- ??? BILIRUBIN NEGATIVE NEG- ??? UROBILI 0.2 0.2-1.0 (eu/dL) ??? BLOOD 3+ (*) NEG- ??? LEUKOCYTES 3+ (*) NEG- ??? NITRITES NEGATIVE NEG- ??? WBC/HPF PACKED (*) Z3- (/hpf) ??? RBC/HPF PACKED (*) ZT3- (/hpf) ??? EPI/HPF 0-3 - (/hpf) ??? Bacteria TRACE (*) NSEE- ASSESSMENT: UTI PLAN: 1. Will treat with stronger antibiotic due to this being her second infection within one month. Levaquin 250mg one po daily for 5 days. Take with food. 2. Will culture urine and call her on her cell phone ([phone]) if the bacteria is not sensitive tothe antibiotic. 3. Repeat urine in 6-7 days and I will notify her of the results. 4. Reviewed proper hygiene with patient. 5. Follow-up with PCP prn. documented in this encounter Plan of Treatment Not on file documented as of this encounter Procedures Procedure Name Priority Date/Time Associated Diagnosis Comments URINE BACTERIA CULTURE STAT 11/23/2007 10:56 AM CDT URINALYSIS, AUTO, COMPLETE STAT 11/23/2007 10:28 AM CDT documented in this encounter Results * CULTURE URINE (11/23/2007 10:56 AM CDT) SPEC DESCRIPTION URINE [facility] SPECIAL REQUESTS NONE [facility] CULTURE RESULT > 100,000 ORGANISMS/ML. ESCHERICHIA COLI [facility] REPORT STATUS FINAL 11/24/2007 [facility] Urine specimen (specimen) 11/23/2007 10:56 AM CDT 11/23/2007 10:57 AM CDT Narrative Organism Antibiotic Method Susceptibility > 100,000 organisms/ml. escherichia coli (lokesh) AMIKACIN <=2 SENSITIVE > 100,000 organisms/ml. escherichia coli (lokesh) AMPICILLIN <=2 SENSITIVE > 100,000 organisms/ml. escherichia coli (lokesh) AMOXICILLIN/CLAVULANIC A DEDUCED SUSCEPTIBLE > 100,000 organisms/ml. escherichia coli (lokesh) AMPICILLIN/SULBACTAM <=2/1 SENSITIVE > 100,000 organisms/ml. escherichia coli (lokesh) CEFAZOLIN <=4 SENSITIVE > 100,000 organisms/ml. escherichia coli (lokesh) CEFTAZIDIME <=1 SENSITIVE > 100,000 organisms/ml. escherichia coli (lokesh) CEFTRIAXONE <=1 SENSITIVE > 100,000 organisms/ml. escherichia coli (lokesh) GENTAMICIN <=1 SENSITIVE > 100,000 organisms/ml. escherichia coli (lokesh) IMIPENEM <=1 SENSITIVE > 100,000 organisms/ml. escherichia coli (lokesh) LEVOFLOXACIN <=0.25 SENSITIVE > 100,000 organisms/ml. escherichia coli (lokesh) NITROFURANTOIN <=16 SENSITIVE > 100,000 organisms/ml. escherichia coli (lokesh) PIPERACILLIN/TAZOBACTAM <=4/2 SENSITIVE > 100,000 organisms/ml. escherichia coli (lokesh) TOBRAMYCIN <=1 SENSITIVE > 100,000 organisms/ml. escherichia coli (lokesh) TRIMETH-SULFAMETH. <=1/19 SENSITIVE > 100,000 organisms/ml. escherichia coli (lokesh) CEFOTETAN <=4 SENSITIVE > 100,000 organisms/ml. escherichia coli (lokesh) CEFEPIME <=1 SENSITIVE > 100,000 organisms/ml. escherichia coli (lokesh) AZTREONAM <=1 SENSITIVE Toma Cassidy NP MICROBIOLOGY - GENERAL ORDER JASWANT Final Result Performing Organization Address [facility] de Phone Number [facility] [address] [place] [address] [facility] [address] [place] [address] * (ABNORMAL) URINALYSIS, AUTO, W/SCOPE (11/23/2007 10:28 AM CDT) COLOR (U) YELLOW [facility] TRANSPARENCY CLOUDY(A) CLER [facility] U PH 6.0 5.0 - 9.0 [facility] SPECIFIC GRAVITY (U) 1.025 1.003 - 1.040 [facility] URINE GLUCOSE NEGATIVE NEG [facility] KETONE (U) NEGATIVE NEG [facility] PROTEIN 2+(A) NEG [facility] BILIRUBIN (U) NEGATIVE NEG [facility] UROBILINOGEN 0.2 0.2 - 1.0 eu/dL [facility] BLOOD (U) 3+(A) NEG [facility] LEUKOCYTES (U) 3+(A) NEG [facility] NITRITES NEGATIVE NEG [facility] WBC/HPF PACKED(A) Z3 /hpf [facility] RBC/HPF PACKED(A) ZT3 /hpf [facility] EPI/HPF 0-3 /hpf [facility] BACTERIA (U) TRACE(A) NSEE [facility] 11/23/2007 10:2 8 AM CDT 11/23/2007 10:29 AM CDT Toma Cassidy NP URINE ORDERABLES Final Resul t Performing Organization Address [facility]/ZIP Co de Phone Number [facility] [address] [place] [address] documented in this encounter Visit Diagnoses Diagnosis Urinary tract infection, site not specified- Primary documented in this encounter
--- OUTSIDE RECORDS SUMMARY | 2024-07-17 03:09 | XMS_ITS | Encounter Summary ---
Author Organization [facility] Address [address] [place] [address]. [place], [place] [id number] [place] [address] Care Team Providers Care Rubber Roller Grinder Name Role Phone Unavailable Primary Care Provider Unavailabl e Reason for Visit * Reason Comments UTI Encounter Details Date Type Department Care Team (Late st Contact Info) Description 10/23/2007 1:00 PM CDT Office Visit [address] [place] [address] Raquel Gracia MD [address] ?? [place] [address] UTI Social History Tobacco Use Types Packs/Day Years [...] Sign Reading Time Taken Comments Blood Pressure 110/60 10/23/2007 1:00 PM CDT Pulse - - Temperature 37 ??C (98.6 ??F) 10/23/2007 1:00 PM CDT Respiratory Rate - - Oxygen Saturation - - Inhaled Oxygen Concentration - - Weight 103.9 kg (229 lb) 10/23/2007 1:00 PM CDT Height - - Body Mass Index 34.31 05/20/2006 1:00 PM COMPUTER PROCESSING SCHEDULER documented in this encounter Progress Notes * Raquel Abrahan - 10/25/2007 12:29 PM CDT Any Commodity Sales Deliverer accepted by RAQUEL GRACIA on 10/25/2007 at 12:29 PM ------ CHIEF COMPLAINT: Frequent urgent and burning urination. SUBJECTIVE: Patient is a 37-year-old woman who presents with clinic with chief complaint of having frequent urgent and burning urination for 2 days. States having some mild lower back pain. Denies any fever or chills. Denies any nausea or vomiting. She does have significantly uncomfortable feeling in the suprapubic area. Patient tried to push more water. Otherwise patient states had a UTI about 7years ago, one time. Past Medical History Diagnosis Date ??? RHEUMATOID ARTHRITIS 1987 ??? EXCESSIVE MENSTRUATION ??? POLYCYSTIC KIDNEY NOS ??? JAMIA CYSTIC LIVER DIS ??? ENDOMETRIOSIS dx with surgery ??? STOMACH ULCER NOS 2004 dx with endoscopy - placed on Protonix ??? DEPRESSIVE DISORDER NEC slight anxiety assoc Patient had a polycystic kidney which was diagnosed 3 years ago. FAMILY HISTORY: Patient's father had a polycystic kidney, started dialysis. Patient had 2 sisters both have polycystic kidneys. Patient was diagnosed with polycystic kidney 3 years ago. Patient has [id number] daughter recently been diagnosed with a nodular scleral Hodgkin's disease, currently onchemotherapy. ALLERGIES: 1. SULFA. 2. ANCEF. 3. DICLOXACILLIN. OBJECTIVE: Vital signs: BP 110/60 Temp 98.6 ??F (37 ??C) Wt 229 lbs (103.874 kg). General: In no acute distress. Walking in clinic. HEENT: Normocephalic, atraumatic. PERRLA. EOMI. Pulmonary clearto auscultation. Cardiac RRR. Normal S1, S2, no murmur. Abdomen soft, discomfort at the suprapubic area, positive bowel sounds. Left side mildly tender when tapping, right side CVAT negative. Lower extremities no edema. Skin: No rash. Cranial nerves II through XII grossly intact. No peripheral nerve deficit. ASSESSMENT: 1. Acute UTI, need closely watching for pyelonephritis developed. 2. Polycystic kidney. 3. Depression, significantly improved. PLAN: 1. Will give patient Macrobid 100 mg p.o. twice a day for 7 days. 2. I asked patient to push fluids such as water or cranberry juice. 3. Instruct patient if symptoms not getting better in 2-3 days, need to return to clinic for reevaluation. Otherwise will followup patient in 7 days. I also instructed patient if there is a spiked fever or worsening lower back pain, patient needs to go to ER or clinic for reevaluation to rule out pyelonephritis. Patient verbalized understanding and agrees with plan. 4. Depression, seemingly improved. DG/aleciat documented in this encounter Nursing Notes * 10/23/2007 1:00 PM CDT >> WALT CHENEYLL Mon Oct 23, 2007 1:14 PM Vangie Yuen is a 37-year-old female who complains ofdysuria, frequency, urgency and nausea. Patient has experienced these symptoms for 2 days. documented in this encounter Plan of Treatment Not on file documented as of this encounter Procedures Procedure Name Priority Date/Time Associated Diagnosis Comments URINE BACTERIA CULTURE Routine 10/23/2007 1:30 PM CDT URINALYSIS, AUTO, COMPLETE STAT 10/23/2007 1:13 PM CDT documented in this encounter Results * CULTURE URINE (10/23/2007 1:30 PM CDT) SPEC DESCRIPTION URINE [facility] SPECIAL [facility]QUESTS NONE [facility] CULTURE RESULT >100,000 COLONIES/ML ESCHERICHIA COLI [facility] REPORT STATUS FINAL 10/25/2007 [facility] Urine specimen (specimen) 10/23/2007 1:30 PM CDT 10/23/2007 1:31 PM CDT Narrative Organism Antibiotic Method Susceptibility >100,000 colonies/ml escheri willi coli (prevea lokesh method) AMPICILLIN 4 SENSITIVE >100,000 colonies/ml escheri willi coli (prevea lokesh method) CEFAZOLIN <=8 SENSITIVE >100,000 colonies/ml escheri willi coli (prevea lokesh method) CEFEPIME <=8 SENSITIVE >100,000 colonies/ml escheri willi coli (prevea lokesh method) CEFOTAXIME <=8 SENSITIVE >100,000 colonies/ml escheri willi coli (prevea lokesh method) CEFTRIAXONE <=8 SENSITIVE >100,000 colonies/ml escheri willi coli (prevea lokesh method) GENTAMICIN <=1 SENSITIVE >100,000 colonies/ml escheri willi coli (prevea lokesh method) IMIPENEM <=4 SENSITIVE >100,000 colonies/ml escheri willi coli (prevea lokesh method) LEVOFLOXACIN <=2 SENSITIVE >100,000 colonies/ml escheri willi coli (prevea lokesh method) NITROFURANTOIN <=32 SENSITIVE >100,000 colonies/ml escheri willi coli (prevea lokesh method) PIPERACILLIN/TAZOBACTAM <=16 SENSITIVE >100,000 colonies/ml escheri willi coli (prevea lokesh method) TRIMETH-SULFAMETH. <=2/38 SENSITIVE >100,000 colonies/ml escheri willi coli (prevea lokesh method) TOBRAMYCIN <=1 SENSITIVE us Raquel Gracia MD MICROBIOLOGY - GENERAL ORDERABLE S Final Result [facility] [address] [place] [address] [facility] [address] [place] [address] * (ABNORMAL) URINALYSIS, AUTO, W/SCOPE (10/23/2007 1:13 PM CDT) COLOR (U) YELLOW [facility] TRANSPARENCY HAZY(A) [facility] U PH 6.0 5.0 - 9.0 [facility] SPECIFIC GRAVITY (U) 1.020 1.003 - 1.040 [facility] URINE GLUCOSE NEGATIVE NEG [facility] KETONE (U) NEGATIVE NEG [facility] N [facility] LAB PROTEIN NEGATIVE NEG [facility] BILIRUBIN (U) NEGATIVE NEG [facility] UROBILINOGEN 0.2 0.2 - 1.0 eu/dL [facility] BLOOD (U) 2+(A) NEG [facility] LEUKOCYTES (U) 3+(A) NEG [facility] NITRITES NEGATIVE NEG [facility] WBC/HPF 75-100(A) Z3 /hpf [facility] RBC/HPF 20-30(A) ZT3 /hpf [facility] EPI/HPF 0-3 /hpf [facility] BACTERIA (U) TRACE(A) NSEE [facility] CRYSTALS (U) AMORPHOUS FEW [facility] 10/23/2007 1:13 PM CDT 10/23/2007 1:14 PM CDT us Raquel Gracia MD URINE ORDERABLES Final Result [facility] [address] [place] [address] documented in this encounter Visit Diagnoses Diagnosis Urinary tract infection, site not specified- Primary Family history of polycystic kidney documented in this encounter
--- OUTSIDE RECORDS SUMMARY | 2024-07-17 03:09 | XMS_ITS | Encounter Summary ---
Author Organization [facility] Address [address] [place] [address]. 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 [place] [address] PCP - General 10/30/09 10/30/09 None, MD Aure[address] [employer] ?? [place] [address] PCP - General 03/11/14 Bakari Vasquez DO [address] [place] [address] PCP - General 01/31/13 03/10/14 Bakari Vasquez DO [address] [place] [address] PCP - General 01/25/13 01/30/13 Bakari Vasquez DO [address] [place] [address] PCP - General 01/21/13 01/24/13 Bakari Vasquez DO [address] [place] [address] PCP - General 01/09/13 01/20/13 Bakari Vasquez DO [address] [place] [address] PCP - General 01/03/13 01/08/13 Bakari Vasquez DO [address] [facility] [address] [place] [address] PCP - General 01/01/13 01/02/13 Bakari Vasquez DO [address] [facility] [address] [place] [address] PCP - General 12/25/12 12/31/12 documented as of this encounter
--- OUTSIDE RECORDS SUMMARY | 2024-07-17 03:09 | XMS_ITS | Encounter Summary ---
Author Organization [facility] Address [address] [place] [address]. [place], [place] [phone] [place] [address] Care Team Providers Care Environmental Engineering Aide Name Role Phone Unavailable Primary Care Provider Unavailabl e Reason for Visit * Reason Onset Date Comments Fax 06/17/2008 COUL D YOU PLEAS E REFAX [facility] DOCUMENTATION [phone]. Encounter Details Date Type Department Care Team (Late Contact Info) Description 06/17/2008 Telephone [place] [phone] [facility] [place] [phone] Raquel Gauthier MD [address] ?? [place] [address] Fax (COUL D YOU PLEASE REFAX [facility] DOCUMENTATION [phone]. 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 See scanned copy. ING MACHINE MECHANIC documented in this encounter Plan of Treatment Not on file documented as of this encounter Visit Diagnoses Not on filedocumented in this encounter
--- OUTSIDE RECORDS SUMMARY | 2024-07-17 03:09 | XMS_ITS | Encounter Summary ---
Author Organization [facility] Address [address] [place] [address]. [place], [place] [phone] [place] [address] Care Team Providers Care Rotor Plate Washer Name Role Phone Raquel Gauthier MD Primary Care Provider [phone] None, Provider Primary Care Provider Unavaila ble [...] Visit * Reason Comments ER Note (SCAN) VOMITING ,DIARRHEA - - [facility] Encounter Details Date Type Department Care Team (Late st Contact Info) Description [facility] [address] [place] [phone] Scanned, Documents ER Note (SCAN) (VOMITING ,DIARRHEA -- [facility]) Social History Tobacco Use Types [...] * Amilcar, Documents - 06/18/2008 11:55 AM SIGNAL FITTER AL FITTER * Debbined, Documents - 06/07/2008 11:56 AM SIGNAL FITTER AL FITTER documented in this encounter Plan of Treatment Not on file documented as of this encounter Visit Diagnoses Not on filedocumented in this encounter Care Teams Rotor Plate Washer Relationship Specialty Start Date End Date Raquel Gauthier MD [employer] ?? [place], [place] [phone] PCP - General 10/30/09 10/30/09 None, [facility]MD [facility] [place] [address] PCP - General 03/11/14 Bakari Vasquez DO [address] [place] [address] PCP - General 01/31/13 03/10/14 Bakari Vasquez DO [address] [place] [address] PCP - General 01/25/13 01/30/13 Bakari Vasquez DO [address] [place] [address] PCP - General 01/21/13 01/24/13 Bakari Vasquez DO [address] [place] [address] PCP - General 01/09/13 01/20/13 Bakari Vasquez DO [address] [facility] [address] [place] [address] PCP - General 01/03/13 01/08/13 Bakari Vasquez DO [address] [facility] [address] [place] [address] PCP - General 01/01/13 01/02/13 Bakari Vasquez DO [address] [facility] [address] [place] [address] PCP - General 12/25/12 12/31/12 documented as of this encounter
--- OUTSIDE RECORDS SUMMARY | 2024-07-17 03:09 | XMS_ITS | Encounter Summary ---
Author Organization [facility] Address [address] [place] [address]. [place], [place] [address] [place] [address] Care Team Providers Care Software Applications Architect Name Role Phone Unavailable Primary Care Provider Unavailabl e Reason for Visit * Reason Comments Medication Check Encounter Details Date Type Department Care Team (Late st Contact Info) Description 02/26/2008 3:00 PM CDT Office Visit [address] [place] [phone] Raquel Gauthier MD [address] [employer] ?? 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 SUBJECTIVE: The patient is a 37-year-old woman who returns to clinic for medication refill. Basically, patient had anxiety with panic attack; it has been many years. Started Prozac 20 mg p.o. daily with Xanax 1 mg b.i.d. p.r.n. for panic control. She states is still having some panic attacks, normally about 3-4 times per week; Xanax helps a lot. She has been on Prozac 20 mg for pretty much over ahalf year. She does not know if that helps or not but denies any side effect with the medication for sure. The 2nd issue is about patient's migraine headache. She said it has also been many years; always started on right side with eyes, blurred vision, smells change, and also had photophobia, phonophobia,feeling nausea and vomiting sometimes. Last flareup a couple of weeks ago. Went to the [facility]. Patient been using Imitrex subcutaneous injection as needed. Today, patient does not have symptoms at this time. Having a strong family history of migraine headache. Two sisters and one brother having migraine headaches. The 3rd issue is about insomnia. Patient has been using Ambien 10 mg as needed, normally using onceor twice a week. She said that helps her; is sleeping very well. Currently, she has no complaint with a sleeping problem. Patient also had a history of polycystic kidney disease and a strong family history for that as well. PAST MEDICAL HISTORY: 1. Rheumatoid arthritis: 2. Congenital polycystic kidney disease. 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 4. Endometriosis. 5. Stomach ulcer. 6. Anxiety with panic attack history. 7. Migraine headache. ALLERGIES: 1. SULFA. 2. ANCEF. 3. DICLOXACILLIN. CURRENT MEDICATIONS: 1. Xanax 1 mg b.i.d. p.r.n. 2. Prozac 20 mg p.o. daily. 3. Ambien 10 mg q.h.s. p.r.n. 4. Imitrex 6 mg/0.5 mL subcu p.r.n. OBJECTIVE: Vital signs: Blood pressure 122/80, weight 216 pounds. General: In no acute distress, walking in clinic. HEENT: Normocephalic, atraumatic. PERRLA. EOMI. Ears, nose, throat clear. Neck supple. Pulmonary clear to auscultation bilaterally. No wheezing, no rales. Cardiac: Regular rate and rhythm, normal S1, S2, no murmur. Abdomen: Soft, nontender and nondistended, positive bowel sounds, noCVAT bilaterally. Lower extremities: No edema. Skin: No rash. Cranial nerves II-XII grossly intact.No peripheral nerve deficit. ASSESSMENT: 1. Migraine headache. 2. Anxiety, panic attack. 3. Insomnia. 4. History of congenital polycystic kidney. PLAN: 1. We will increase patient's Prozac to 40 mg p.o. daily to control patient's panic attack. I askedthe patient to try to cut down her Xanax dose. But I gave patient a refill of Xanax today. 2. Refilled patient's Imitrex. 3. We will follow up patient in 3 months. 4. We will check patient's basic labs, given patient long-term using multiple medications. Plan has been discussed with the patient, and patient verbalized understanding and agrees to plan. * Grant Wynn - 02/28/2008 8:10 AM CDTQuick Note: Ptt aware overall labs were good per Dr Gauthier. Pt verbalizes understanding. * Raquel Gauthier - 02/27/2008 4:36 PM CDTQuick Note: Notify pt that the labs are overall good. Thanks. documented in this encounter Plan of Treatment Not on file documented as of this encounter Procedures Procedure Name Priority Date/Time Associated Diagnosis Comments COMPREHENSIVE METABOLIC PANEL Routine 02/26/2008 3:44 PM CDT CBC W/DIFF AUTOMATED Routine 02/26/2008 3:44 PM CDT THYROID STIM HORMONE TSH Routine 02/26/2008 3:44 PM CDT documented in this encounter Results * THYROID STIM HORMONE, TSH (02/26/2008 3:44 PM CDT) TSH 0.84 0.34 - 4.82 Miu/mL [facility] 02/26/2008 3:44 PM CDT 02/26/2008 3:45 PM CDT us Raquel Gauthier MD LABORATORY Final Result [facility] [address] [place] [address] 2111 * (ABNORMAL) COMPREHENSIVE METABOLIC PANEL (02/26/2008 3:44 PM CDT) SODIUM S/P/B 141 133 - 142 mmol/L [facility] POTASSIUM S/P/B 4.1 3.5 - 5.3 mmol/L [facility] CHLORIDE S/P/B 108 99 - 111 mmol/L [facility] CO2 24 22 - 34 mmol/L [facility] BUN 8 7 - 20 mg/dL [facility] CREATININE S/P/B 0.9 0.6 - 1.3 mg/dL [facility] EGFR NON-AFR. AMER. >60 >60 mls/min. [facility] EGFR AFR. AMER. >60 >60 mls/min. [facility] CALCIUM S/P/B 9.2 8.5 - 10.1 mg/dL [facility] GLUCOSE 86 70 - 110 mg/dL [facility] TOTAL PROTEIN S/P/B 7.8 6.4 - 8.2 g/dL [facility] ALBUMIN S/P/B 3.9 3.4 - 5.0 g/dL [facility] AST 14 10 - 37 U/L [facility] ALT 34 30 - 65 U/L [facility] ALKALINE PHOSPHATASE S/P/B 78 50 - 136 U/L [facility] BILIRUBIN TOTAL S/P/B 1.2(H) 0 - 1.0 mg/dL [facility] 02/26/2008 3:44 PM CDT 02/26/2008 3:45 PM CDT Raquel Gauthier MD LABORATORY Final Result [facility] [address] [place] [address] 5367 * (ABNORMAL) CBC W/DIFF AUTOMATED (02/26/2008 3:44 PM CDT) WBC 7.6 3.0 - 10.5 k/uL [facility] ABS. LYMPHOCYTES 2.1 0.6 - 4.6 k/uL [facility] LYMPHOCYTES % 28.0 % [facility] ABS. MID CELLS 0.3 0 - 0.9 k/uL [facility] MID CELLS % 3.4 % [facility] ABS. NEUTROPHILS 5.2 1.5 - 7.9 k/uL [facility] NEUTROPHILS % 68.6 % [facility] RBC 4.75 3.70 - 5.20 m/uL [facility] HGB 13.9 11.8 - 15.8 g/dL [facility] HCT 40.5 35.0 - 46.0 % [facility] MCV 85.3 80.0 - 98.0 fL [facility] MCH 29.3 pg [facility] MCHC 34.3 g/dL [facility] RDW 14.0 10.5 - 14.7 % [facility] PLT 202 140 - 440 K/uL [facility] MPV 11.10(H) 6.1 - 10.3 fl [facility] 02/26/2008 3:44 PM CDT 02/26/2008 3:45 PM CDT Raquel Gauthier MD LABORATORY Final Result [facility] [address] [place] [address] documented in this encounter Visit Diagnoses Diagnosis Anxiety Anxiety state, unspecified Panic attack Panic disorder without agoraphobia Migraine Migraine, unspecified, without mention of intractable migraine without mention of status migrainosus Insomnia Insomnia, unspecified documented in this encounter
--- OUTSIDE RECORDS SUMMARY | 2024-07-17 03:09 | XMS_ITS | Encounter Summary ---
Author Organization [facility] Address [address] [place] [address]. [place], [place] [address] [place] [address] Care Team Providers Care Reed Fixer Name Role Phone Unavailable Primary Care Provider Unavailabl e Reason for Visit * Reason Comments ER F/U [facility] on 05-27-08 and 05-28-08;flu-like symptoms and anxiety Refill Request Encounter Details Date Type Department Care Team (Late st Contact Info) Description 05/29/2008 9:00 AM CAR STARTER [facility] [address] [facility] [place] [address] Raquel Gauthier MD [facility] [address] ?? 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 ER followup. 2. Refill medication. SUBJECTIVE: The patient is a 38-year-old woman who returns to clinic for ER followup and medicationrefill. Per patient, she started having some vomiting, diarrhea, and abdominal cramping a few days ago. It seems to be getting worse. Yesterday morning patient started having anxiety and getting worse, last night had a panic attack. Went to the ER. the patient had some dehydration, gastroenteritis,and also mild hypokalemia. Patient had fluid replacement and symptoms controlled in ER. She was discharged home with Xanax. Asked the patient to follow up with primary doctor. The patient returns to clinic for followup today. Feels that everything is doing better. The ER physician gave patient off work for 2 days. Patient will return to work tomorrow. Patient relates today she tried to take some liquid fluid, seems tolerable. No fever, no chills. Further discussed with the patient, she had a chronic depression and anxiety for many years. Has been using Xanax p.r.n. for symptom control. recently had some stressful life. Her daughter had cancer, and she is currently involved in a divorce, so stressful life makes her headache, depression slightly get worse. She is still taking Prozac 40 mg daily. Also,a few days ago patient started having common cold symptoms and then gradually started having vomiting, diarrhea, and anxiety. CURRENT MEDICATIONS: 1. Imitrex 6 mg/0.5 mL kit subQ injection as needed, and as directed. 2. Xanax 1 mg 1 tablet q.6h. p.r.n. 3. Ambien 10 mg 1 tablet at bedtime as needed. 4. Prozac 40 mg 1 tablet every morning. 5. Dicyclomine 20 mg 1 tablet 4 times daily. 6. Promethazine 25 mg q. 8-12 hours as needed. ALLERGIES: 1. SULFA. 2. ANCEF. 3. DICLOXACILLIN. OBJECTIVE: Vital signs: Blood pressure 112/72, pulse 60, temperature 98.8, respirations 18. Weight 192 pounds. General: In no acute distress. Walking in clinic. HEENT: Normocephalic, atraumatic. PERRLA. EOMI. Ears, nose, throat clear. Neck supple. Pulmonary clear to auscultation bilaterally. No wheezing, no rales. Cardiac: RRR, normal S1, S2, no murmur. Abdomen is soft, no tenderness, no distention. No Iglesias sign. No tenderness at McBurney's point. Positive bowel sounds, no abdominal bruits, no CVAT bilaterally. Lower extremities: No edema. Skin: No rash. Cranial nerves II-XII grossly intact. No peripheral nerve deficit. ASSESSMENT AND PLAN: 1. Acute gastroenteritis, improved. Asked the patient to push fluid. 2. Hypokalemia, patient had K 3.4 in ER. and had been given 2 tablets potassium at that time. I asked the patient to continue to push getarade. If there are any symptoms, will return to clinic for followup. 3. Depression, anxiety, and panic attacks. Will refill patient's Xanax medication and refill patient's Prozac. 4. Insomnia. Gave patient Ambien 10 mg at bedtime as needed. 5. Migraine headache. Refilled patient medication. Total spent at least 40 minutes with the patient, with at least 25 minutes in [id number] counseling the patient, answered the patient's questions. Will follow up patient in 2 months for patient's depression, anxiety, and panic attack and also migraine headache. Instructed patient if her symptoms is not getting better for acute gastroenteritis, she needs to return to clinic or urgent care for further evaluation. If patient tomorrow still not feeling well or is unable to work, she may give us a call. We can give the patient another day or twooff. will follow up patient as needed. STARTER documented in this encounter Plan of Treatment Not on file documented as of this encounter Visit Diagnoses Diagnosis Acute gastroenteritis Other and unspecified noninfectious gastroenteritis and colitis Insomnia Insomnia, unspecified Depression Depressive disorder, not elsewhere classified Anxiety Anxiety state, unspecified Migraine Migraine, unspecified, without mention of intractable migraine without mention of status migrainosus documented in this encounter
--- OUTSIDE RECORDS SUMMARY | 2024-07-17 03:09 | XMS_ITS | Encounter Summary ---
Author Organization [facility] Address [address] [place] [address]. [place], [place] [address] [place] [address] Care Team Providers Care Fiber Worker Name Role Phone Unavailable Primary Care Provider Unavailabl e Reason for Visit * Reason Onset Date Comments Forms 06/04/2008 pt asking status of paperwork for her time off/ asking that we fax back adina Encounter Details Date Type Department Care Team (Late Contact Info) Description 06/04/[address] [place] [phone] Raquel Gauthier MD [address] ?? [place] [address] Forms (pt asking status of paperwork for her time off/ asking that we fax back adina) Social History Tobacco Use Types Packs/Day Years [...] encounter Progress Notes * Kyler Fitzgerald - 06/11/2008 1:46 PM STENCIL INSPECTOR CIL INSPECTOR * Koki Coyle - 06/04/2008 6:[address] Gauthier completed paperwork and faxed to Yanet Ramirez at [phone]. Pt states really not feeling much better. Discussed if not feeling better needs to be seen in clinic. Pt will call back to schedule. See scanned copy of paperwork and hard copy mailed to pt. CIL INSPECTOR documented in this encounter Plan of Treatment Not on file documented as of this encounter Visit Diagnoses Not on filedocumented in this encounter
--- OUTSIDE RECORDS SUMMARY | 2024-07-17 03:09 | XMS_ITS | Encounter Summary ---
Author Organization [facility] Address [address] [place] [address]. [place], [place] [address] [place] [address] Care Team Providers Care Doors Prefitter Name Role Phone Unavailable Primary Care Provider Unavailabl e Reason for Visit * Reason Onset Date Comments Refill Request 06/07/2008 pt requesting re fill of xanax - is completely out and feels very anxious Encounter Details Date Type Department Care Team (Late st Contact Info) Description 06/07/2008 Nurse Triage [facility] [address] [place] [address] Raquel Gauthier MD [address] ?? 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 Negative: all questions in Call PCP Now section. Affirmative: Caller requesting a nonurgent new prescription or refill and triager unable to refill per unit policy Disposition of Call PCP within 24 hrs suggested. Pt advised she would need to call during regular clinic hours for this refill. Pt v/u and denies any further questions at this time. CLINIC RN: PLEASE CONTACT PT ON Tuesday06/10/08 REGARDING REFILL. D CARE documented in this encounter Plan of Treatment Not on file documented as of this encounter Visit Diagnoses Not on filedocumented in this encounter
--- OUTSIDE RECORDS SUMMARY | 2024-07-17 03:09 | XMS_ITS | Encounter Summary ---
Author Organization [facility] Address [address] [place] [address]. 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 [place], [place] [phone] PCP - General 10/30/09 10/30/09 None, MD Aurelio [facility] [employer] [facility] ?? [place] [address] PCP - General 03/11/14 Bakari Vasquez DO [address] [place] [address] PCP - General 01/31/13 03/10/14 Bakari Vasquez DO [address] [place] [address] PCP - General 01/25/13 01/30/13 Bakari Vasquez DO [address] [place] [address] PCP - General 01/21/13 01/24/13 Bakari Vasquez DO [address] [place] [address] PCP - General 01/09/13 01/20/13 Bakari Vasquez DO [address] [place] [address] PCP - General 01/03/13 01/08/13 Bakari Vasquez DO [address] [place] [address] PCP - General 01/01/13 01/02/13 Bakari Vasquez DO [address] [facility] [address] [place] [address] PCP - General 12/25/12 12/31/12 documented as of this encounter
--- OUTSIDE RECORDS SUMMARY | 2024-07-17 03:09 | XMS_ITS | Encounter Summary ---
Author Organization [facility] Address [address] [place] [address]. [place], [place] [address] [place] [address] Care Team Providers Care Company Doctor Name Role Phone Unavailable Primary Care Provider Unavailabl e Reason for Visit * Reason Onset Date Comments Forms 09/08/2007 Encounter Details Date Type Department Care Team (Late st Contact Info) Description 09/08/[address] [phone] Samir Gonzalez MD [address] [place] [address] Forms Social History Tobacco Use Types Packs/Day Years [...] as of this encounter Progress Notes * Marcy Rod - 09/08/2007 1:25 PM CST Pt notified that records are on [employer]'s desk. When they are done pt is to be called and records areto be faxed to [phone]. ERCIAL FISHING VESSEL OPERATOR * Koki Miramontes - 09/08/2007 12:28 PM CST Forms cannot be found per favio. Pt will get another set and get them to clinic. ERCIAL FISHING VESSEL OPERATOR documented in this encounter Plan of Treatment Not on file documented as of this encounter Visit Diagnoses Not on filedocumented in this encounter
--- OUTSIDE RECORDS SUMMARY | 2024-07-17 03:09 | XMS_ITS | Encounter Summary ---
Author Organization [facility] Address [address] [place] [address]. 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 [place], [place] [id number] PCP - General 10/30/09 10/30/09 None, MD Aurelio [facility] ?? [place] [address] PCP - General 03/11/14 Bakari Vasquez DO [address] [place] [address] PCP - General 01/31/13 03/10/14 Bakari Vasquez DO [address] [place] [address] PCP - General 01/25/13 01/30/13 Bakari Vasquez DO [address] [place] [address] PCP - General 01/21/13 01/24/13 Bakari Vasquez DO [address] [place] [address] PCP - General 01/09/13 01/20/13 Bakari Vasquez DO [address] [place] [address] PCP - General 01/03/13 01/08/13 Bakari Vasquez DO [address] [place] [address] PCP - General 01/01/13 01/02/13 Baakri Vasquez DO [address] [facility] [address] [place] [address] PCP - General 12/25/12 12/31/12 documented as of this encounter
--- OUTSIDE RECORDS SUMMARY | 2024-07-17 03:09 | XMS_ITS | Encounter Summary ---
Author Organization [facility] Address [address] [place] [address]. [place], [place] [address] [place] [address] Care Team Providers Care Electrical Repairer Name Role Phone Unavailable Primary Care Provider Unavailabl e Reason for Visit * Reason Comments Anxiety Encounter Details Date Type Department Care Team (Late st Contact Info) Description 09/01/2007 8:15 AM SENIOR BEHAVIORAL SCIENTIST Office Visit [place] [id number] [place] [phone] Mee Hutchinson, [place] [place] [address] Anxiety Social History Tobacco Use Types Packs/Day Years [...] Sign Reading Time Taken Comments Blood Pressure 118/80 09/01/2007 8:15 AM SENIOR BEHAVIORAL SCIENTIST Pulse 60 09/01/2007 8:15 AM SENIOR BEHAVIORAL SCIENTIST Temperature - - Respiratory Rate - - Oxygen Saturation - - Inhaled Oxygen Concentration - - Weight 105.2 kg (232 lb) 09/01/2007 8:15 AM SENIOR BEHAVIORAL SCIENTIST Height - - Body Mass Index 34.76 05/20/2006 1:00 PM SENIOR BEHAVIORAL SCIENTIST documented in this encounter Progress Notes * Mee Hutchinson - 09/11/2007 5:26 PM CST Commodities Clerk accepted by MEE HUTCHINSON on 09/11/2007 at 5:26 PM ------ SUBJECTIVE: This 37-year-old female patient of Dr. Gonzalez presents with recurrent depression and anxiety. Her 17-year-old daughter was diagnosed July 20 with Hodgkin's. She was brought in with a complaint of a dry cough. A chest x- ray revealed a large chest mass springing up into her neck. Since that time, it has been a whirlwind of doctors' tests, procedures, and chemotherapy. States her daughter is doing extremely well and is very courageous. However, she is having a great deal of difficulty coping and handling this. She does have a history of depression. She has had admissions to [facility] in the past. She has been on depressive medication periodically. She has also been on antianxiety medication for panic attacks. Up until this happened, she had been doing extremely well and maintained on fluoxetine 10 mg q.d. She has also been on Ativan periodically for anxiety and sleep, but it is no longer effective. She was able to handle her anxiety fairly well with meditation and talking myself out of it. She is now not eating, sleeping. Weeping most of the time when out of her daughter's view. OBJECTIVE: Alert 37-year-old female, no acute distress. Mood is very sad, somewhat agitated today. Good eye contact. Speech and dress are appropriate. She is wearing a black stocking cap that says Cancer sucks. Patient did shave her head a month ago and it is now just growing back in. She talked freely of the events of the last 6 weeks and finds herself overwhelmed. She states, I've had my issues in the past and I know when it's too much. She has tried very hard to maintain composure and strength through this turn of events, but is failing. She wakes up at night crying. She has been unable to sleep. She is not herself. 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 She believes she is not doing a good job and she states, I'mexcellent at it. She believes she needs a leave from work at this time. She absolutely denies any suicidal ideation. She does have support of a wonderful who does very well with their daughter. She has a 15-year-old son as well. Extended family has been extremely supportive. They have a web site for her daughter and numerous friends and classmates help out whenever they can. She expresses a great deal of hamzah in the doctors and states the care has been more than excellent. There is a road map of anticipated care and length of treatment options. However, yesterday, when all appeared to be going well, she was informed the latest scan showed no tumor below the diaphragm, meaning she was only a stage II, not a stage III, and she began to rejoice. However, they did find a hot spot on a rather large tonsil. Her daughter is scheduled for a tonsillectomy later this morning. She states that threw me. I just can't take it anymore. ASSESSMENT: Recurrent depression/anxiety related to daughter's cancer diagnosis. PLAN: 1.Increase fluoxetine to 20 mg q.d. 2.Discontinue Ativan. Start Xanax 1 mg q.6h. p.r.n. anxiety and h.s. for sleep. 3.She is encouragedto take part in a support group for parents. Up to this point, she has only talked individual, other moms on the phone, regarding how they handle cancer in their own children. She is agreeable to group counseling at this time. 4.off work 5.Followup med check in 1 month, sooner if symptoms are worse. SMS/jls OR BEHAVIORAL SCIENTIST documented in this encounter Plan of Treatment Not on file documented as of this encounter Visit Diagnoses Diagnosis Depressive disorder, not elsewhere classified- Primary documented in this encounter
--- OUTSIDE RECORDS SUMMARY | 2024-07-17 03:09 | XMS_ITS | Encounter Summary ---
Author Organization [facility] Address [address] [place] [address]. [place], [place] [address] [place] [address] Care Team Providers Care Molding Line Operator Name Role Phone Unavailable Primary Care Provider Unavailabl e Reason for Visit * Reason Onset Date Comments Request (Refill) 12/29/2007 SAW ANDREW OLSON P HY TODAY WAS SUPPOSE TO HAVE LOESTRIN CALLED INTO [facility] Encounter Details Date Type Department Care Team (Late st Contact Info) Description 12/29/2007 Telephone [facility] [address] [place] [phone] Andrew Diehl APNP [address] 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 Pt aware. documented in this encounter Nursing Notes * 12/29/2007 12:00 PM CDT >> HI LUNDBERG TueDec 29, 2007 5:19 PM PT WOULD LIKE TO PICK THIS UP TODAY. DEVORAH ANTHONY documented in this encounter Plan of Treatment Not on file documented as of this encounter Visit Diagnoses Not on filedocumented in this encounter
--- OUTSIDE RECORDS SUMMARY | 2024-07-17 03:09 | XMS_ITS | Encounter Summary ---
Author Organization [facility] Address [address] [place] [address]. [place], [place] [address] [place] [address] Care Team Providers Care Design Sales Consultant Name Role Phone Unavailable Primary Care Provider Unavailabl e Reason for Visit * Reason Comments Follow Up [facility] back on 06/14/08 . Medication Check Encounter Details Date Type Department Care Team (Late Contact Info) Description 06/26/2008 12:00 PM AIR CONDITIONING INSTALLER SUPERVISOR Office Visit [facility] [address] [place] [phone] Raquel Gauthier MD [address] [place] [address] ?? 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 Not on file Not on file Not on file documented as of this encounter Last Filed Vital Signs Vital Sign Reading Time Taken Comments Blood Pressure 98/68 06/26/2008 12:00 PM AIR CONDITIONING INSTALLER SUPERVISOR Pulse 84 06/26/2008 12:00 PM AIR CONDITIONING INSTALLER SUPERVISOR Temperature - - Respiratory Rate - - Oxygen Saturation - - Inhaled Oxygen Concentration - - Weight 83.5 kg (184 lb) 06/26/2008 12:00 PM AIR CONDITIONING INSTALLER SUPERVISOR Height - - Body Mass Index 27.57 12/29/2007 7:30 AM CDT documented in this encounter Progress Notes * Raquel Gauthier - 07/01/2008 12:15 PM CST CHIEF COMPLAINT: Insomnia. SUBJECTIVE: Georgia Yuen is a 38-year-old woman who presented to clinic with a chief complaint having insomnia and dry mouth medication. Patient states, there was a lot going on with her life recently. Last mid month, she had severe diarrhea, nausea, vomiting, and tiredness on and off a few days, and then she had trouble with her work. 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 Per patient, currently, still dealing with those things with human resources. She started having anxiety and visited ER a couple times. Eventually, the patient started having suicidal ideation and was admitted to [facility]. She was discharged with Seroquel 25 mg one tablet at bedtime, and also her fluoxetine dose was increased to 40 mg daily. Currently, she feels only slightly improved, still very anxious at nighttime, woke up frequently without Ambien. But she denies any significant suicidal ideation at this time. Because of her worsening anxiety, her recently helped her handle her medsper patient. She actually is with her , but because of her medical problems lately, her helped her to cope with her daily issues recently. I have interviewed patient in clinic at least 40 minutes. Today, patient moves steady, and she did not cry. And also denies any suicidal ideation. She is still feeling very anxious always. Feels a lot of pressure on the patient includin. Her daughter has been 4 months currently on radiotherapy. There are a lot of possible side effects for radiotherapy that make her frequently thinking and worry about it. 2. She feels some pressure with her work. Probably, she is going to lose her job, per patient. ALLERGIES: 1. SULFA. 2. ANCEF. 3. DICLOXACILLIN. CURRENT MEDICATIONS: 1. Fluoxetine 40 mg one tablet daily. 2. Seroquel 25 mg one tablet at bedtime. 3. Ambien 10 mg one tablet at bedtime as needed. 4. Sumatriptan 6 mg/0.5 mL subcutaneous p.r.n. for headache. OBJECTIVE: Vital signs: Blood pressure 98/60, pulse 84, weight 184 pounds. General: In no acute distress, walking in clinic, very pleasant woman, having good insight, normal affect. Casual dressing reasonable. Having good communication. Awake, alert, oriented times person and place. Mood is steady.No crying or upset during communication. HEENT: Normocephalic, atraumatic. PERRLA. EOMI. Ears, nose, throat clear. Neck supple. Pulmonary: Clear to auscultation. Cardiac has regular rate and rhythm. Normal S1, S2, no murmur. Abdomen is soft, no tenderness, no distention. Positive bowel sounds. Lower extremities: No edema. Skin: No rash. Cranial nerves II-XII are grossly intact. No peripheral nerve deficit. ASSESSMENT: 1. Anxiety: Patient is being followed with a psychologist and already had an appointment with a [facility]. Her psychologist, Dr. Joyner; at this time, I also would like to refer patient to a counselor. We will schedule for that. 2. Insomnia: Patient has been following up with a psychiatrist for anxiety, and the patient states some side effects with those medications. She would like to talk with a psychiatrist. She plans to call them. At this time, I will refill patient's Ambien 10 mg ten tablets. Total spent at least 40 minutes with the patient, at lease 30 minutes counseling the patient and answering patient's questions. Patient left without questions or concerns. CONDITIONING INSTALLER SUPERVISOR documented in this encounter Plan of Treatment Not on file documented as of this encounter Visit Diagnoses Diagnosis Insomnia Insomnia, unspecified Anxiety Anxiety state, unspecified documented in this encounter
--- OUTSIDE RECORDS SUMMARY | 2024-07-17 03:09 | XMS_ITS | Encounter Summary ---
Author Organization [facility] Address [address] [place] [address]. 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 [place], [place] [id number] PCP - General 10/30/09 10/30/09 None, MD Aurelio [facility] ?? [place] [address] PCP - General 03/11/14 Bakari Vasquez DO [address] [place] [address] PCP - General 01/31/13 03/10/14 Bakari Vasquez DO [address] [place] [address] PCP - General 01/25/13 01/30/13 Bakari Vasquez DO [address] [place] [address] PCP - General 01/21/13 01/24/13 Bakari Vasquez DO [address] [place] [address] PCP - General 01/09/13 01/20/13 Bakari Vasquez DO [address] [place] [address] PCP - General 01/03/13 01/08/13 Bakari Vasquez DO [address] [place] [address] PCP - General 01/01/13 01/02/13 Bakari Vasquez DO [address] [facility] [address] [place] [address] PCP - General 12/25/12 12/31/12 documented as of this encounter
--- OUTSIDE RECORDS SUMMARY | 2024-07-17 03:09 | XMS_ITS | Encounter Summary ---
Author Organization [facility] Address [address] [place] [address]. 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 [place] [address] PCP - General 10/30/09 10/30/09 None, MD Aure[address] ?? [place] [address] PCP - General 03/11/14 Bakari Vasquez DO [address] [place] [address] PCP - General 01/31/13 03/10/14 Bakari Vasquez DO [address] [place] [address] PCP - General 01/25/13 01/30/13 Bakari Vasquez DO [address] [place] [address] PCP - General 01/21/13 01/24/13 Bakari Vasquez DO [address] [place] [address] PCP - General 01/09/13 01/20/13 Bakari Vasquez DO [address] [place] [address] PCP - General 01/03/13 01/08/13 Bakari Vasquez DO [address] [facility] [address] [place] [address] PCP - General 01/01/13 01/02/13 Bakari Vasquez DO [address] [facility] [address] [place] [address] PCP - General 12/25/12 12/31/12 documented as of this encounter
--- OUTSIDE RECORDS SUMMARY | 2024-07-17 03:09 | XMS_ITS | Encounter Summary ---
Author Organization [facility] Address [address] [place] [address]. [place], [place] [address] [place] [address] Care Team Providers Care Harmonica Maker Name Role Phone Unavailable Primary Care Provider Unavailabl e Reason for Visit * Reason Onset Date Comments Forms 06/12/2008 dropping off fml a form today and needs to fill it out and fax to the number on the form. gave her one, but she missed some more days, so needs a new one Repeat Call 06/12/2008 also needs zanax [facility] Encounter Details Date Type Department Care Team (Late st Contact Info) Description 06/12/[address] [place] [address] Raquel Gauthier MD [address] ?? [place] [address] Forms (dropping off fmla form today and needs to fill it out and fax to the number on the form. gave her one, but she missed some more days, so needs a new one); Repeat Call (also needs zanax [facility]) Social History Tobacco Use Types Packs/Day Years [...] encounter Progress Notes * Koki Coyle - 06/14/2008 10:35 AM CST Py picked up form and signed needed release. RAFT LAY OUT WORKER * Koki Coyle - 06/14/2008 9:37 AM CST Pt informed that form is ready to apple picker but pt has to sign consent form that this information canbe released to [facility]. Pt will stop by on her way to work to sign form and apple picker copy to [facility] to work. RAFT LAY OUT WORKER * Koki Coyle - 06/14/2008 7:59 AM CST Pt informed that if needs additional xanax needs to go through psychiatrist. She has seen in past and will contact that office. Pt states needs FMLA paper work AILEEN. Informed will check on this and get back to her. RAFT LAY OUT WORKER * Alecia Huynh RN - 06/12/2008 3:[address] Gauthier, call pt for update. No refill on Xanax. If feels needs refill - refer to Psychiatry. RAFT LAY OUT WORKER * Alecia Huynh RN - 06/12/2008 11:41 AM CST Form given to Dr. Gauthier. RAFT LAY OUT WORKER documented in this encounter Plan of Treatment Not on file documented as of this encounter Visit Diagnoses Not on filedocumented in this encounter
--- OUTSIDE RECORDS SUMMARY | 2024-07-17 03:09 | XMS_ITS | Encounter Summary ---
Author Organization [facility] Address [address] [place] [address]. [place], [place] [address] [place] [address] Care Team Providers Care Consulting Practice Director Name Role Phone Unavailable Primary Care Provider Unavailabl e Reason for Visit * Reason Onset Date Comments Forms 09/08/2007 Needs AILEEN Encounter Details Date Type Department Care Team (Late st Contact Info) Description 09/08/2007 Telephone [facility] [address] [place] [phone] Mee Hutchinson, BUS OR TRUCK GARAGE MECHANIC [address] [place], [place] [phone] Forms (Needs AILEEN) Social History Tobacco Use Types Packs/Day Years [...] as of this encounter Progress Notes * Christina Rabago RN - 09/08/2007 12:37 PM CST Patient called asking about status of FMLA forms. Taking time to assist daughter who was diagnosed with cancer and is in chemotherapy. Forms were dropped off at [facility] about 7- 10 days ago. PC to FP - spoke with oralia Telles RN. Koki stated they have not been able to locate the forms. Called Vangie and she will take a new set of forms to James LENZ for completion. Koki in triage informed. UNTS RECEIVABLE ACCOUNTANT documented in this encounter Plan of Treatment Not on file documented as of this encounter Visit Diagnoses Not on filedocumented in this encounter
--- OUTSIDE RECORDS SUMMARY | 2024-07-17 03:09 | XMS_ITS | Encounter Summary ---
Author Organization [facility] Address [address] [place] [address]. [place], [place] [address] [place] [address] Care Team Providers Care Computing Architect Name Role Phone Unavailable Primary Care Provider Unavailabl e Reason for Visit * Reason Onset Date Comments Orders 06/17/2008 PT IS CURRENTLY AT [facility], NEEDS TO BE TRANSFERED TO [facility]. Encounter Details Date Type Department Care Team (Late Contact Info) Description 06/17/2008 Telephone [place] [phone] [facility] [place] [address] Raquel Gauthier MD [address] ?? [place] [address] Orders (PT IS CURRENTLY AT [facility], NEEDS TO BE TRANSFERED TO [facility]. 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 She was admitted to [facility] for a 72 hour hold and would like to get admitted to [facility] instead. Does have insurance. Discussed that she needs to work with nurses at [facility] for the transfer. She also needs to check with her insurance to make sure she can go to [facility]. Discussed Dr. Gauthier really does not get involved with in psych care. Requested [facility] ER records. She will call back if needs further assistance. INE PLASTER MIXER INE PLASTER MIXER documented in this encounter Plan of Treatment Not on file documented as of this encounter Visit Diagnoses Not on filedocumented in this encounter
--- OUTSIDE RECORDS SUMMARY | 2024-07-17 03:09 | XMS_ITS | Encounter Summary ---
Author Organization [facility] Address [address] [place] [address]. [place], [place] [address] [place] [address] Care Team Providers Care Machine Tool Rebuilder Name Role Phone Unavailable Primary Care Provider Unavailabl e Reason for Visit * Reason Comments Sinus Problem x 1 week Encounter Details Date Type Department Care Team (Late st Contact Info) Description 06/05/2008 2:15 PM MAINTENANCE ENGINEER OIL FIELD Office Visit [facility] [address] [facility] [place] [address] Raquel Gauthier MD [address] ?? [place] [address] Sinus Problem (x 1 week) Social History Tobacco Use Types Packs/Day Years [...] Sign Reading Time Taken Comments Blood Pressure 122/88 06/05/2008 2:15 PM MAINTENANCE ENGINEER OIL FIELD Pulse 64 06/05/2008 2:15 PM MAINTENANCE ENGINEER OIL FIELD Temperature 36.7 ??C (98 ??F) 06/05/2008 2:15 PM MAINTENANCE ENGINEER OIL FIELD Respiratory Rate - - Oxygen Saturation - - Inhaled Oxygen Concentration - - Weight 88.8 kg (195 lb 12.8 oz) 06/05/2008 2:15 PM MAINTENANCE ENGINEER OIL FIELD Height - - Body Mass Index 29.34 12/29/2007 7:30 AM CDT documented in this encounter Progress Notes * Raquel Gauthier - 06/14/2008 1:21 PM CSTCHIEF COMPLAINT: Followup. SUBJECTIVE: The patient is a 38-year-old woman who returns to clinic for followup. Patient states GI symptoms seems getting better. Currently, having loose stool, yesterday having 4 or 5 times bowel movement. Today had 3 times bowel movement and not like watery diarrhea. Stomach seems to be gettinga lot better, but the patient feels overall body is still tiredness, achy. Has started having some new symptoms, significant sore throat, nasal congestion, and yellowish discharge, and also having frontal headache, no energy. Denies any shortness of breath. Had a fever yesterday, a few chills. No appetite. Denies any skin rash. No lower extremity edema. ALLERGIES: SULFA, ANCEF, AND DICLOXACILLIN. CURRENT MEDICATIONS: Please refer to Epic. OBJECTIVE: Vital signs: Blood pressure 122/88, pulse 64, temperature 98, weight 195. General: In noacute distress, walking in clinic. HEENT: Normocephalic, atraumatic. PERRLA, EOMI. Ears: Both EACs clean, TM intact, no erythema. Nose: Erythematous, edematous mucosa. Significant yellowish dischargepostnasally. Bilateral maxillary sinus tenderness. No mastoid tenderness. Throat: Erythematous changes but no exudate. Neck: Supple. No lymphadenopathy. Pulmonary: Clear to auscultation. Cardiac: RRR, normal S1, S2, no murmur. Abdomen is still mildly tender at the epigastric area, but no rebound, no guarding, no Iglesias's sign. No tenderness at McBurney point. Slightly hyperactive bowel sounds, noCVAT. Lower extremities: No edema. Skin: No rash. LABS: 1. Rapid Strep, negative. 2. Monospot, negative. ASSESSMENT: 1. Acute sinusitis. 2. Acute URI. 3. Acute gastroenteritis, slightly improved. 4. Dehydration. PLAN: 1. Encouraged patient to push fluids. 2. Gave patient antibiotics Augmentin 500 mg twice a day for 10 days. 3. Since patient has significant symptomatic symptoms will keep patient off work until Tuesday. Willfollowup patient on Tuesday. If symptoms getting worse need to return to urgent care for further evaluation. Plan been discussed with the patient, and patient verbalized understanding and agrees to plan. TENANCE ENGINEER OIL FIELD documented in this encounter Plan of Treatment Not on file documented as of this encounter Procedures Procedure Name Priority Date/Time Associated Diagnosis Comments HETEROPHILE ANTIBODIES,SCREEN STAT 06/05/2008 3:12 PM MAINTENANCE ENGINEER OIL FIELD CBC W/DIFF AUTOMATED STAT 06/05/2008 3:12 PM MAINTENANCE ENGINEER OIL FIELD BASIC METABOLIC PANEL Routine 06/05/2008 3:11 PM MAINTENANCE ENGINEER OIL FIELD Hypokalemia CULTURE STREP SCREEN Routine 06/05/2008 3:10 PM MAINTENANCE ENGINEER OIL FIELD STREP A RAPID STAT 06/05/2008 3:10 PM MAINTENANCE ENGINEER OIL FIELD Sorethroat documented in this encounter Results * HETEROPHILE ANTIBODIES,SCREEN (06/05/2008 3:12 PM MAINTENANCE ENGINEER OIL FIELD) Pathologist [facility] HETEROPHILE ANTIBODIES NEGATIVE NEG [facility] 06/05/2008 3:12 PM MAINTENANCE ENGINEER OIL FIELD 06/05/2008 3:17 PM MAINTENANCE ENGINEER OIL FIELD us Raquel Gauthier MD LABORATORY Final Result [facility] [address] [place] [address] * (ABNORMAL) CBC W/DIFF AUTOMATED (06/05/2008 3:12 PM MAINTENANCE ENGINEER OIL FIELD) Pathologist [facility] WBC 5.0 3.0 - 10.5 k/uL [facility] ABS. LYMPHOCYTES 1.6 0.6 - 4.6 k/uL [facility] LYMPHOCYTES % 31.3 % [facility] ABS. MID CELLS 0.2 0 - 0.9 k/uL [facility] MID CELLS % 3.5 % [facility] ABS. NEUTROPHILS 3.3 1.5 - 7.9 k/uL [facility] NEUTROPHILS % 65.2 % [facility] RBC 3.95 3.70 - 5.20 m/uL [facility] HGB 11.7(L) 11.8 - 15.8 g/dL [facility] HCT 34.0(L) 35.0 - 46.0 % [facility] MCV 86.1 80.0 - 98.0 fL [facility] MCH 29.6 pg [facility] MCHC 34.4 g/dL [facility] RDW 15.4(H) 10.5 - 14.7 % [facility] PLT 205 140 - 440 K/uL [facility] MPV 10.20 6.1 - 10.3 fl [facility] 06/05/2008 3:12 PM MAINTENANCE ENGINEER OIL FIELD 06/05/2008 3:17 PM MAINTENANCE ENGINEER OIL FIELD Raquel Gauthier MD LABORATORY Final Result [facility] [address] [place] [address] * BASIC METABOLIC PANEL (06/05/2008 3:11 PM MAINTENANCE ENGINEER OIL FIELD) Pathologist [facility] SODIUM S/P/B 142 133 - 142 mmol/L [facility] POTASSIUM S/P/B 3.7 3.5 - 5.3 mmol/L [facility] CHLORIDE S/P/B 107 99 - 111 mmol/L [facility] CO2 27 22 - 34 mmol/L [facility] BUN 7 7 - 20 mg/dL [facility] CREATININE S/P/B 0.8 0.6 - 1.3 mg/dL [facility] EGFR NON-AFR. AMER. >60 >60 mls/min. [facility] EGFR AFR. AMER. >60 >60 mls/min. [facility] CALCIUM S/P/B 8.9 8.5 - 10.1 mg/dL [facility] GLUCOSE 80 70 - 110 mg/dL [facility] 06/05/2008 3:11 PM MAINTENANCE ENGINEER OIL FIELD 06/05/2008 3:16 PM MAINTENANCE ENGINEER OIL FIELD Raquel Gauthier MD LABORATORY Final Result [facility] [address] [place] [address] 6548 * CULTURE THROAT STREP A ONLY (06/05/2008 3:10 PM MAINTENANCE ENGINEER OIL FIELD) THROAT CULTURE GROUP A STREP No Beta-hemolytic colonies resembling Strep. NOTS [facility] 06/05/2008 3:10 PM MAINTENANCE ENGINEER OIL FIELD 06/05/2008 3:15 PM MAINTENANCE ENGINEER OIL FIELD Raquel Gauthier MD MICROBIOLOGY - GENERAL ORDERABLE S Final Result Performing Organization Address [facility] Co de Phone Number [facility] [address] [place] [address] * RAPID STREP (06/05/2008 3:10 PM MAINTENANCE ENGINEER OIL FIELD) RAPID STREP TEST NEGATIVE NEG [facility] 06/05/2008 3:10 PM MAINTENANCE ENGINEER OIL FIELD 06/05/2008 3:15 PM MAINTENANCE ENGINEER OIL FIELD Raquel Gauthier MD MICROBIOLOGY - GENERAL ORDERABLE S Final Result Performing Organization Address City/[facility] Co de Phone Number [facility] [address] [place] [address] documented in this encounter Visit Diagnoses Diagnosis Acute sinusitis- Primary Acute sinusitis, unspecified Sorethroat Acute pharyngitis Hypokalemia Hypopotassemia documented in this encounter
--- OUTSIDE RECORDS SUMMARY | 2024-07-17 03:09 | XMS_ITS | Encounter Summary ---
Author Organization [facility] Address [address] [place] [address]. 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 on file Not on file documented as of this encounter Progress Notes * Kyler Fitzgerald - 06/05/2008 11:08 AM CSTAssociated Order(s): OUTSIDE LAB (SCAN) ICITY WRITER documented in this encounter Plan of Treatment Not on file documented as of this encounter Procedures Procedure Name Priority Date/Time Associated Diagnosis Comments OUTSIDE LAB (SCAN ORDER) Routine 05/27/2008 documented in this encounter Results * OUTSIDE LAB (05/27/2008) 05/27/2008 Narrative Procedure Note Zscanned, Documents - 06/05/2008 11:08 AM PUBLICITY WRITER us Documents Scanned SCANNING Final Result documented in this encounter Visit Diagnoses Not on filedocumented in this encounter
--- OUTSIDE RECORDS SUMMARY | 2024-07-17 03:09 | XMS_ITS | Encounter Summary ---
Author Organization [facility] Address [address] [place] [address]. [place], [place] [phone] [place] [address] Care Team Providers Care Brake Specialist Name Role Phone Unavailable Primary Care Provider Unavailabl e Reason for Visit * Reason Onset Date Comments Follow Up Call 06/05/2008 STILL NOT FEELIN G BETTER SAW DR GRACIA LAST WEEK. NOW SINUSES CONGESTION AND COUGH Encounter Details Date Type Department Care Team ([facility] Contact Info) Description 06/05/[address] [place] [phone] Raquel Gracia MD [address] ?? [place] [address] Follow Up Call (STILL NOT FEELING BETTER SAW DR GRACIA LAST WEEK. NOW SINUSES CONGESTION AND COUGH) Social History Tobacco Use Types Packs/Day Years [...] encounter Progress Notes * Grant Wynn - 06/05/2008 12:17 PM CST Pt calling with sinus pain, pressure and congestion. Headache. Had been seen for flu sxs 05/29/08. Now states upper resp sxs. Would like appt today. Transf to schedule. COAT TENDER documented in this encounter Plan of Treatment Not on file documented as of this encounter Visit Diagnoses Not on filedocumented in this encounter
--- OUTSIDE RECORDS SUMMARY | 2024-07-17 03:09 | XMS_ITS | Encounter Summary ---
Author Organization [facility] Address [address] [place] [address]. [place], [place] [address] [place] [address] Care Team Providers Care Bag Machine Helper Name Role Phone Unavailable Primary Care Provider Unavailabl e Reason for Visit * Reason Onset Date Comments Results 06/11/[address] OOL SAMPLE YESTERDAY, AND IS ASKING IF WE HAVE RECEIVED RESULTS YET? Returned Call 06/11/2008 WILL BE AT CELL PHONE # UNTIL [phone] Encounter Details Date Type Department Care Team (Late st Contact Info) Description 06/11/2008 Telephone [facility] [address] [facility] [place] [address] Raquel Gauthier MD [address] ?? 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 She states sx are little better. Discussedwill let her know if something comes back positive. Pt verbalized understaning of this information. GER OUTPATIENT * Koki Coyle - 06/11/2008 10:02 AM CST Test for blood in sumi back and negative. Rest of tests are not back yet. GER OUTPATIENT GER OUTPATIENT documented in this encounter Plan of Treatment Not on file documented as of this encounter Visit Diagnoses Not on filedocumented in this encounter
--- OUTSIDE RECORDS SUMMARY | 2024-07-17 03:09 | XMS_ITS | Encounter Summary ---
Author Organization [facility] Address [address] [place] [address]. [place], [place] [address] [place] [address] Care Team Providers Care Laborer Beam House Name Role Phone Unavailable Primary Care Provider Unavailabl e Reason for Visit * Reason Onset Date Comments WorkComp/Disability/FMLA Rep ort (SCAN) 06/14/2008 NEEDS HER FMLA UPDATED TO IN DICATE THROUGH 06/10. PLEASE CALL. Encounter Details Date Type Department Care Team (Late st Contact Info) Description 06/14/2008 Telephone [facility] [address] [facility] [place] [address] Raquel Gauthier MD [address] ?? [place] [address] WorkComp/Disability/FML A Report (SCAN) (NEEDS HER FMLA UPDATED TO INDICATE THROUGH 06/10. 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 Refaxed to HR as requested. D LIEUTENANT documented in this encounter Plan of Treatment Not on file documented as of this encounter Visit Diagnoses Not on filedocumented in this encounter
--- OUTSIDE RECORDS SUMMARY | 2024-07-17 03:09 | XMS_ITS | Encounter Summary ---
Author Organization [facility] Address [address] [place] [address]. [place], [place] [address] [place] [address] Care Team Providers Care Hand Mold Maker Name Role Phone Unavailable Primary Care Provider Unavailabl e Reason for Visit * Reason Comments Medication Check Requests Imtrex pen Encounter Details Date Type Department Care Team (Late st Contact Info) Description 10/06/2007 1:45 PM CDT Office Visit [facility] [address] [place] [phone] Mee Hutchinson, SYSTEMS TESTING LABORATORY TECHNICIAN [address] [place], [place] [phone] Medication Check (Requests Imtrex pen) Social History Tobacco Use Types Packs/Day Years [...] Sign Reading Time Taken Comments Blood Pressure 112/88 10/06/2007 1:45 PM CDT Pulse 76 10/06/2007 1:45 PM CDT Temperature - - Respiratory Rate - - Oxygen Saturation - - Inhaled Oxygen Concentration - - Weight 103.4 kg (228 lb) 10/06/2007 1:45 PM CDT Height - - Body Mass Index 34.16 05/20/2006 1:00 PM FOOD AND NUTRITION TEACHER documented in this encounter Progress Notes * Mee Vince Hutchinson - 10/16/2007 12:24 PM CDT Pump Servicer accepted by MEE HUTCHINSON on 10/16/2007 at 12:24 PM ------ SUBJECTIVE: A 37-year-old female patient presents for med check. Vangie was started on medications for depression and anxiety and insomnia on 09/01/2007. At that time her 17-year-old daughter was undergoing treatment for acute leukemia. She was very anxious and depressed and sleep deprived in caring for her. She was currently in the process of receiving chemotherapy. She worked at [employer] d felt that she was unable to do an adequate job because of her sleep deprivation. She was, therefore, also given a leave of absence to care for her daughter. Reports she has done very well. Her daughter has completed chemotherapy. She is to start radiation in a week, but the treatments will be light and her daughter should not have too many problems with it. The patient also reports that she had rather severe migraine headache during this time of stress and needed to go to the emergency room. It took an injection of Imitrex to get her pain relief. She had 1 migraine headache since that time. The injection works rapidly and quite well, and she is pleased she has had no further headaches. OBJECTIVE: Alert 37-year-old female in no acute distress. BP 112/88 Pulse 76 Wt 228 lbs (103.420 kg). Her mood is very relaxed and calm today. She is even smiling and laughing at times, appropriate affect. She reports the Ambien has done a great job in initiating and getting her at least 4 to 6 hoursof sleep at night. It has made a huge difference in the way she feels the following day. She no longer feels sleep deprived. She is ready to go to work. She would like to resume work tomorrow. She ishappy and content that her daughter's chemotherapy is now completed. She also at 1 month ago was toundergo a T&A for an extremely large tonsil. That turned out quite well also. There was no evident cancer in the area, but felt the infection was overwhelming due to immunosuppression. ASSESSMENT: Depression, anxiety related to daughter's illness, much improved. Insomnia, much improved. PLAN: Continue Ambien. Continue Xanax that she still uses 1 to 2 times per day. Continue Lorazepam as before. Followup med check in 1 month. A total of 20 minutes was spent in discussion, education, and counseling. SMS/mlb documented in this encounter Plan of Treatment Not on file documented as of this encounter Visit Diagnoses Diagnosis Anxiety state, unspecified- Primary documented in this encounter
--- OUTSIDE RECORDS SUMMARY | 2024-07-17 03:09 | XMS_ITS | Encounter Summary ---
Author Organization [facility] Address [address] [place] [address]. [place], [place] [address] [place] [address] Care Team Providers Care Substitute Nurse Name Role Phone Unavailable Primary Care Provider Unavailabl e Reason for Visit * Reason Onset Date Comments Refill Request 05/03/2008 XANAX 1 MG PLEAS E CALL TO [facility] Encounter Details Date Type Department Care Team (Late st Contact Info) Description 05/03/[address] [place] [address] Raquel Gauthier MD [address] ?? 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 #60/2 refills given in 02/22. Okay per Dr. Gauthier to give #60 and no refills until appt. Pt informed that Dr. Gauthier willing to give 60 tablets and pt needsto keep appt as scheduled. Verbalized understanding. documented in this encounter Plan of Treatment Not on file documented as of this encounter Visit Diagnoses Not on filedocumented in this encounter
--- OUTSIDE RECORDS SUMMARY | 2024-07-17 03:09 | XMS_ITS | Encounter Summary ---
Author Organization [facility] Address [address] [place] [address]. [place], [place] [address] [place] [address] Care Team Providers Care Senior Peoplesoft Developer Name Role Phone Raquel Gauthier MD Primary Care Provider [phone] None, Provider Primary Care Provider Unavaila ble [...] (Late st Contact Info) Description 05/28/2008 Scan [facility] [address] [place] [address] , Sheila Tate MD Social History Tobacco [...] on filedocumented in this encounter Care Teams Senior Peoplesoft Developer Relationship Specialty Start Date End Date Raquel Gauthier MD [facility] ?? [place], [place] [phone] PCP - General 10/30/09 10/30/09 None, MD [facility] [employer] [facility] ?? [place] [address] PCP - General 03/11/14 Bakari Vasquez DO [address] [place] [address] PCP - General 01/31/13 03/10/14 Bakari Vasquez DO [address] [place] [address] PCP - General 01/25/13 01/30/13 Bakari Vasquez DO [address] [place] [address] PCP - General 01/21/13 01/24/13 Bakari Vasquez DO [address] [place] [address] PCP - General 01/09/13 01/20/13 Bakari Vasquez DO [address] [place] [address] PCP - General 01/03/13 01/08/13 Bakari Vasquez DO [address] [place] [address] PCP - General 01/01/13 01/02/13 Bakari Vasquez DO [address] [facility] [address] [place] [address] PCP - General 12/25/12 12/31/12 documented as of this encounter
--- OUTSIDE RECORDS SUMMARY | 2024-07-17 03:09 | XMS_ITS | Encounter Summary ---
Author Organization [facility] Address [address] [place] [address]. [place], [place] [address] [place] [address] Care Team Providers Care Aviation Safety Equipment Technician Name Role Phone Unavailable Primary Care Provider Unavailabl e Reason for Visit * Reason Onset Date Comments Results 10/25/2007 Ultrasound Encounter Details Date Type Department Care Team (Late st Contact Info) Description 10/25/2007 Telephone [facility] [address] [facility] [place] [address] Raquel Gauthier MD [email or web address] ?? [place] [address] Results (Ultrasound) Social History Tobacco Use Types Packs/Day Years [...] as of this encounter Progress Notes * Jessica Peace - 10/25/2007 1:26 PM CDT Informed patient that her Ultrasound was negative. Explain to patient to push fluids, may take tylenol every 4 hours as needed, and call on Tuesday to give us an update. Informed patient that if things get worse should go to ER. Patient verbalized understanding documented in this encounter Plan of Treatment Not on file documented as of this encounter Visit Diagnoses Not on filedocumented in this encounter
--- OUTSIDE RECORDS SUMMARY | 2024-07-17 03:09 | XMS_ITS | Encounter Summary ---
Author Organization [facility] Address [address] [place] [address]. 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 [place], [place] [phone] PCP - General 10/30/09 10/30/09 None, MD [facility] ?? [place] [address] PCP - General 03/11/14 Bakari Vasquez DO [address] [place] [address] PCP - General 01/31/13 03/10/14 Bakari Vasquez DO [address] [place] [address] PCP - General 01/25/13 01/30/13 Bakari Vasquez DO [address] [place] [address] PCP - General 01/21/13 01/24/13 Bakari Vasquez DO [address] [place] [address] PCP - General 01/09/13 01/20/13 Bakari Vasquez DO [address] [place] [address] PCP - General 01/03/13 01/08/13 Bakari Vasquez DO [address] [place] [address] PCP - General 01/01/13 01/02/13 Bakari Vasquez DO [address] [facility] [address] [place] [address] PCP - General 12/25/12 12/31/12 documented as of this encounter
--- OUTSIDE RECORDS SUMMARY | 2024-07-17 03:09 | XMS_ITS | Encounter Summary ---
Author Organization [facility] Address [address] [place] [address]. 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 [place], [place] [id number] PCP - General 10/30/09 10/30/09 None, MD Aurelio [facility] [employer] [facility] ?? [place] [address] PCP - General 03/11/14 Bakari Vasquez DO [address] [place] [address] PCP - General 01/31/13 03/10/14 Bakari Vasquez DO [address] [place] [address] PCP - General 01/25/13 01/30/13 Bakari Vasquez DO [address] [place] [address] PCP - General 01/21/13 01/24/13 Bakari Vasquez DO [address] [place] [address] PCP - General 01/09/13 01/20/13 Bakari Vasquez DO [address] [place] [address] PCP - General 01/03/13 01/08/13 Bakari Vasquez DO [address] [place] [address] PCP - General 01/01/13 01/02/13 Bakari Vasquez DO [address] [facility] [address] [place] [address] PCP - General 12/25/12 12/31/12 documented as of this encounter
--- OUTSIDE RECORDS SUMMARY | 2024-07-17 03:09 | XMS_ITS | Encounter Summary ---
Author Organization [facility] Address [address] [place] [address]. [place], [place] [address] [place] [address] Care Team Providers Care Elementary Teacher Name Role Phone Unavailable Primary Care Provider Unavailabl e Reason for Visit * Reason Onset Date Comments Work Excuse 05/30/2008 SAW YESTERDAY AND HE SAID HE WOULD WRITE HER A WORK EXCUSE TODAY IF SHE WASN'T BETTER, AND SHE IS WORSE Encounter Details Date Type Department Care Team (Late st Contact Info) Description 05/30/2008 Telephone [facility] [address] [facility] [place] [address] Raquel Gauthier MD [address] ?? 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 Is keeping a few sips of fluids down. She states needs work excuse for today. Discussed we can do that but since sx are worse needs to go to ER to be re-evaluated. She verbalized understanding and will go and will ask them to write work excuse and if needs further asisstance from our office will call back. THESIOLOGY TECHNOLOGIST documented in this encounter Plan of Treatment Not on file documented as of this encounter Visit Diagnoses Not on filedocumented in this encounter
--- OUTSIDE RECORDS SUMMARY | 2024-07-17 03:10 | XMS_ITS | Encounter Summary ---
Author Organization [facility] Address [address] [place] [address]. [place], [place] [address] [place] [address] Care Team Providers Care Paraprofessional Aide Name Role Phone Samir Gonzalez MD Primary Care Provider + Reason for Visit * Consultation/Treatment (Routine) - Closed Specialty Diagnoses / Procedures Referred By Mikie oswald Referred To Contact GENERAL SURGERY / SURGERY Diagnoses POST OP Procedures SURGICAL POST-OP [facility] [address] [place] [address] Phone: tel: fax: Slick Blake MD Referral ID Status Reason Start Date Expiration Date Visits Re quested Visits Authorized [id number] Closed 25 25 Encounter Details Date Type Department Care Team (Late st Contact Info) Description 07/02/2005 11:20 AM MONITORING AND EVALUATION ADVISOR Office Visit [facility] [address] [address] [place] [address] Shawn Parkinson, RN [address] [place] [address] Social History Tobacco Use Types Packs/Day Years [...] as of this encounter Progress Notes * Shawn Parkinson - 07/07/2005 11:54 AM MONITORING AND EVALUATION ADVISOR Vangie is here following a laparoscopic cholecystectomy done on 06/18/05. She is doing well at home. She is eating and drinking normally. Her bowels are moving. Her urination is normal. No fever orchills. No nausea or vomiting. On exam her abdomen is soft, flat and nontender. Incisions have healed nicely. They are strong to cough and strain. We discussed returning to normal activity, which she pretty much has. She need not see us again unless there is a problem or a question. She was advised to follow up with her usual physician for any other problems. [id number] TORING AND EVALUATION ADVISOR TORING AND EVALUATION ADVISOR documented in this encounter Plan of Treatment Not on file documented as of this encounter Visit Diagnoses Not on filedocumented in this encounter Care Teams Paraprofessional Aide Relationship Specialty Start Date End Date Samir Gonzalez MD [address] [place] [address] PCP - General 04/05/02 07/17/07 documented as of this encounter
--- OUTSIDE RECORDS SUMMARY | 2024-07-17 03:10 | XMS_ITS | Encounter Summary ---
Author Organization [facility] Address [address] [place] [address]. [place], [place] [address] [place] [address] Care Team Providers Care Rotary Kiln Operator Name Role Phone Samir Gonzalez MD Primary Care Provider + Reason for Visit * Reason Onset Date Comments Refill Request 06/12/2007 IMITRIX 50MG 1 A S NEEDED #9 - DEVORAH ANTHONY. PT NEEDS FILLED TODAY. Encounter Details Date Type Department Care Team (Late st Contact Info) Description 06/12/2007 Telephone [facility] [address] [place] [phone] Samir Gonzalez MD [address] [place] [address] Refill Request (IMITRIX 50MG 1 NEEDED #Sriram ANTHONY. PT NEEDS FILLED TODAY.) Social History Tobacco Use Types Packs/Day Years [...] of this encounter Progress Notes * Sharla Mcmillan - 06/12/2007 1:15 PM CST Imitrex 50 mg last ordered #9/no rfs 02-28-07. KEITH 03-31-06. No future appt. Reminder note typed on rx label to sched appt. ENTS TRANSPORTER documented in this encounter Plan of Treatment Not on file documented as of this encounter Visit Diagnoses Not on filedocumented in this encounter Care Teams Rotary Kiln Operator Relationship Specialty Start Date End Date Samir Gonzalez MD [address] [place] [address] PCP - General 04/05/02 07/17/07 documented as of this encounter
--- OUTSIDE RECORDS SUMMARY | 2024-07-17 03:10 | XMS_ITS | Encounter Summary ---
Author Organization [facility] Address [address] [place] [address]. [place], [place] [address] [place] [address] Care Team Providers Care Historic Sites Supervisor Name Role Phone Raquel Gauthier MD Primary Care Provider [phone] Samir Gonzalez MD Primary Care Provider + Samir Gonzalez MD Primary Care Provider + None, Provider Primary Care Provider Unavaila ble Manarang, Don DO Primary Care Provider [phone] Manarang, Don DO Primary Care Provider [phone] Manarang, Don DO Primary Care Provider [phone] Manarang, Don DO Primary Care Provider [phone] Manarang, Don DO Primary Care Provider [phone] Manarang, Don DO Primary Care Provider [phone] Manarang, Don DO Primary Care Provider [phone] Encounter Details Date Type Department Care Team (Late st Contact Info) Description 11/13/2005 [facility] Health Information Management [address] [place] [address] Sheila Inman MD Social History Tobacco Use [...] on filedocumented in this encounter Care Teams Historic Sites Supervisor Relationship Specialty Start Date End Date Raquel Gauthier MD [address] ?? [place], [place] [id number] PCP - General 10/30/09 10/30/09 Samir Gonzalez MD [address] [place], [place] [id number] PCP - General 07/18/07 07/18/07 Samir Gonzalez MD [address] [place], [place] [id number] PCP - General 04/05/02 07/17/07 Aurelio Osei MD [address] [place] [address] PCP - General 03/11/14 Bakari Vasquez DO [address] [place] [address] PCP - General 01/31/13 03/10/14 Bakari Vasquez DO [address] [place] [address] PCP - General 01/25/13 01/30/13 Bakari Vasquez DO [address] [place] [address] PCP - General 01/21/13 01/24/13 Bakari Vasquez DO [address] [facility] [facility] [address] [place] [address] PCP - General 01/09/13 01/20/13 Bakari Vasquez DO [address] [facility] [address] [place] [address] PCP - General 01/03/13 01/08/13 Bakari Vasquez DO [address] [place] [address] 20 [place] [address] PCP - General 01/01/13 01/02/13 Bakari Vasquez DO [address] [place] [address] 20 [place] [address] PCP - General 12/25/12 12/31/12 documented as of this encounter
--- OUTSIDE RECORDS SUMMARY | 2024-07-17 03:10 | XMS_ITS | Encounter Summary ---
Author Organization [facility] Address [address] [place] [address]. [place], [place] [address] [place] [address] Care Team Providers Care Agricultural Sciences Professor Name Role Phone Samir Gonzalez MD Primary Care Provider + Reason for Visit * Reason Onset Date Comments Sinus Problem 04/05/2005 Encounter Details Date Type Department Care Team (Late st Contact Info) Description 04/06/2005 Nurse Triage [facility] [address] [place] [address] Aliyah Michaels RN Sinus Problem Social History Tobacco Use Types [...] as of this encounter Progress Notes * Aliyah Michaels - 04/06/2005 6:43 PM CDTPt refused triage, wanted abx called in over the phone tonight. Pt advised after hrs policy is not to treat over the phone. OCP does not know pt or have access to chart. pt has the option to call clinic tomorrow to see if PCP willing to treat over the phone. VU. documented in this encounter Plan of Treatment Not on file documented as of this encounter Visit Diagnoses Not on filedocumented in this encounter Care Teams Agricultural Sciences Professor Relationship Specialty Start Date End Date Samir Gonzalez MD [address] [place] [address] PCP - General 04/05/02 07/17/07 documented as of this encounter
--- OUTSIDE RECORDS SUMMARY | 2024-07-17 03:10 | XMS_ITS | Encounter Summary ---
Author Organization [facility] Address [address] [place] [address]. [place], [place] [address] [place] [address] Care Team Providers Care Sales Representative Raw Fibers Name Role Phone Samir Gonzalez MD Primary Care Provider + Reason for Visit * Reason Onset Date Comments Refill Request 02/28/2007 CALL PT WHEN REF ILL HAS BEEN CALLED TO PHARMACY. IMETREX 50MG PRN #9. CALL REFILL TO [facility] Clint ANTHONY. Encounter Details Date Type Department Care Team (Late st Contact Info) Description 02/28/2007 Telephone [facility] [address] [place] [phone] Samir Gonzalez MD [facility] [place] [address] Refill Request (CALL PT WHEN REFILL HAS BEEN CALLED TO PHARMACY. IMETREX 50MG PRN #9. CALL REFILL TO DEVORAH ANTHONY. ) Social History Tobacco Use Types Packs/Day [...] encounter Progress Notes * Sharla Mcmillan - 02/28/2007 2:29 PM CDT Pt informed of Imitrex refill to [facility] 02-28-07 #9/no rfs at 1:31 pm. Pt also informed of need forannual appt in mid to late 03-24. Pt will call back to schedule. documented in this encounter Plan of Treatment Not on file documented as of this encounter Visit Diagnoses Not on filedocumented in this encounter Care Teams Sales Representative Raw Fibers Relationship Specialty Start Date End Date Samir Gonzalez MD [address] [place], [place] [id number] PCP - General 04/05/02 07/17/07 documented as of this encounter
--- OUTSIDE RECORDS SUMMARY | 2024-07-17 03:10 | XMS_ITS | Encounter Summary ---
Author Organization [facility] Address [address] [place] [address]. [place], [place] [address] [place] [address] Care Team Providers Care Tunnel Mucker Name Role Phone Raquel Gauthier MD Primary Care Provider [phone] Samir Gonzalez MD Primary Care Provider + [...] Visit * Reason Comments Hospital H&P (SCAN) [facility] ER Note (SCAN) Encounter Details Date Type Department Care Team (Late st Contact Info) Description [facility] [address] [place] [phone] Scanned, Documents Hospital H&P (SCAN) ([facility]); ER Note (SCAN) Social History Tobacco Use Types Packs/Day Years [...] 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 [place], [place] [phone] PCP - General 10/30/09 10/30/09 Samir Gonzalez MD [address] [place] [id number] PCP - General 07/18/07 07/18/07 Samir Gonzalez MD [address] [place] [id number] PCP - General 04/05/02 07/17/07 Aurelio Osei MD [address] [place] [address] PCP - General 03/11/14 Bakari aVsquez DO [address] [place] [address] PCP - General 01/31/13 03/10/14 Bakari Vasquez DO [address] [place] [address] PCP - General 01/25/13 01/30/13 Bakari Vasquez DO [address] [place] [address] PCP - General 01/21/13 01/24/13 Bakari Vasquez DO [address] [facility] [address] [place] [address] PCP - General 01/09/13 01/20/13 Bakari Vasquez DO [address] [facility] [address] [place] [address] PCP - General 01/03/13 01/08/13 Bakari Vasquez DO [address] [facility] [address] [place] [address] PCP - General 01/01/13 01/02/13 Bakari Vasquez DO [address] [facility] [address] [place] [address] PCP - General 12/25/12 12/31/12 documented as of this encounter
--- OUTSIDE RECORDS SUMMARY | 2024-07-17 03:10 | XMS_ITS | Encounter Summary ---
Author Organization [facility] Address [address] [place] [address]. [place], [place] [address] [place] [address] Care Team Providers Care Medical Voucher Clerk Name Role Phone Raquel Gauthier MD Primary Care Provider [phone] Samir Gonzalez MD Primary Care Provider + Samir Gonzalez MD Primary Care Provider + None, Provider Primary Care Provider Unavaila ble Manarang, Don DO Primary Care Provider [phone] [...] Care Team (Late st Contact Info) Description 04/17/2006 [facility] Health Information Management [address] [place] [address] Sheila Inman MD Social History Tobacco [...] on filedocumented in this encounter Care Teams Medical Voucher Clerk Relationship Specialty Start Date End Date Raquel Gauthier MD [address] [facility] [address] ?? [place], [place] [phone] PCP - General 10/30/09 10/30/09 Samir Gonzalez MD [address] [place], [place] [id number] PCP - General 07/18/07 07/18/07 Samir Gonzalez MD [address] [place], [place] [phone] PCP - General 04/05/02 07/17/07 Aurelio Osei MD [address] [place] [address] PCP - General 03/11/14 Bakari Vasquez DO [address] [place] [address] PCP - General 01/31/13 03/10/14 Bakari Vasquez DO [address] [place] [address] PCP - General 01/25/13 01/30/13 Bakari Vasquez DO [address] [place] [address] PCP - General 01/21/13 01/24/13 Bakari Vasquez DO [address] [facility] [address] [place] [address] PCP - General 01/09/13 01/20/13 Bakari Vasquez DO [address] [facility] 20 [place] [address] PCP - General 01/03/13 01/08/13 Bakari Vasquez DO [address] [place] [address] 20 [place] [address] PCP - General 01/01/13 01/02/13 Bakari Vasquez DO [address] [place] [address] 20 [place] [address] PCP - General 12/25/12 12/31/12 documented as of this encounter
--- OUTSIDE RECORDS SUMMARY | 2024-07-17 03:10 | XMS_ITS | Encounter Summary ---
Author Organization [facility] Address [address] [place] [address]. [place], [place] [address] [place] [address] Care Team Providers Care Glove Turner Name Role Phone Samir Aiken MD Primary Care Provider + Reason for Visit * Reason Onset Date Comments Appointment Request 08/11/2005 PT MAY HAVE PNEUMONIA. SHE HAS COUGH, FEVER, IS SOB. SHE WANTS TO BE FIT IN THIS AM. PLEASE CALL HER AILEEN AT HOME. SHE WANTS TO KNOW IF DR AIKEN WILL FIT HER IN THIS AM Encounter Details Date Type Department Care Team (Late st Contact Info) Description 08/11/2005 Telephone [facility] [address] [place] [phone] Samir Aiken MD [facility] [place] [address] Appointment Request (PT MAY HAVE PNEUMONIA. SHE HAS COUGH, FEVER, IS SOB. SHE WANTS TO BE FIT IN THIS AM. PLEASE CALL HER AILEEN AT HOME. SHE WANTS TO KNOW IF DR AIKEN WILL FIT HER IN THIS AM) Social History Tobacco Use Types Packs/Day Years [...] encounter Progress Notes * Marcy Rod - 08/11/2005 8:33 AM CST Duration 2 days with body aches. Pt thinks she has a fever. Nasal drianage, cough, chest involvement. Offered pt 4:[address] Aiken but refused. Wants AM. OC Dr Zhong available this AM, butPSR is going to try to double book her with Dr Aiken. CONCESSION MANAGER documented in this encounter Plan of Treatment Not on file documented as of this encounter Visit Diagnoses Not on filedocumented in this encounter Care Teams Glove Turner Relationship Specialty Start Date End Date Samir Aiken MD [address] [place] [address] PCP - General 04/05/02 07/17/07 documented as of this encounter
--- OUTSIDE RECORDS SUMMARY | 2024-07-17 03:10 | XMS_ITS | Encounter Summary ---
Author Organization [facility] Address [address] [place] [address]. [place], [place] [address] [place] [address] Care Team Providers Care Commercial Loan Assistant Name Role Phone Samir Gonzalez MD Primary Care Provider + Reason for Visit * Reason Comments Report (SCAN) FMLA Encounter Details Date Type Department Care Team (Late st Contact Info) Description 11/18/2005 Scan [facility] [address] [place] [phone] Scanned, Documents Report (SCAN) (FMLA) Social History Tobacco Use Types Packs/Day Years [...] on filedocumented in this encounter Care Teams Commercial Loan Assistant Relationship Specialty Start Date End Date Samir Gonzalez MD [address] [place] [address] PCP - General 04/05/02 07/17/07 documented as of this encounter
--- OUTSIDE RECORDS SUMMARY | 2024-07-17 03:10 | XMS_ITS | Encounter Summary ---
Author Organization [facility] Address [address] [place] [address]. [place], [place] [address] [place] [address] Care Team Providers Care Order Caller Name Role Phone Samir Gonzalez MD Primary Care Provider + Reason for Visit * Reason Comments Other 2 days/children + pn eumonia Other Encounter Details Date Type Department Care Team (Late st Contact Info) Description 08/11/2005 9:00 AM CANINE SERVICE TEACHER Office Visit [facility] [address] [place] [phone] Samir Gonzalez MD [address] [place] [address] chest congestion/cough (2 days/children + pneumonia); Body aches/fever Social History Tobacco Use Types Packs/Day Years [...] Sign Reading Time Taken Comments Blood Pressure 110/70 08/11/2005 9:00 AM CANINE SERVICE TEACHER Pulse 108 08/11/2005 9:00 AM CANINE SERVICE TEACHER Temperature 38 ??C (100.4 ??F) 08/11/2005 9:00 AM CANINE SERVICE TEACHER Respiratory Rate - - Oxygen Saturation 98% 08/11/2005 9:00 AM CANINE SERVICE TEACHER Inhaled Oxygen Concentration - - Weight 81.6 kg (180 lb) 08/11/2005 9:00 AM CANINE SERVICE TEACHER Height 174 cm (5' 8.5 ) 08/11/2005 9:00 AM CANINE SERVICE TEACHER Body Mass Index 26.97 08/11/2005 9:00 AM CANINE SERVICE TEACHER documented in this encounter Progress Notes * Samir S Carlos - 08/11/2005 9:44 AM CST SUBJECTIVE: Dry cough ,severe, since 2 days, Onset gradual, getting worse from mild to severe, associated with chest pain , chest congestion , wheezing, fever, with chills, bodyache, head congestion, no sore throat, urine or gi , armature connector, noese ,ear, . 2 daughter down with pneumonia There are no current hospital/outpatient medications on file prior to 08/11/05 Past Medical History: NONE Past Surgical History: LAPAROSCOPIC CHOLECYSTECTOMY 06/18/05 Comment: CHOLECYSTECTOMY, LAPAROSCOPIC OBJECTIVE: BP 110/70 Pulse 108 Temp (Src) 100.4 (Oral) Ht 5' 8.5 (1.74m) Wt 180 lbs (81.6kg) SaO2 98% LMP 08/07/2005 General appearance: alert, moderate distress, flushed Ears: R TM - normal, L TM - normal Nose: normal Sinuses: no tenderness noted over frontal or maxillary sinuses Oropharynx: normal Neck: supple, without adenopathy or tenderness and thyroid normal size, non- tender, without nodularity Lungs: clear to auscultation but rales on left lower lobe. Heart: regular rate and rhythm and no murmurs, clicks, or gallops The abdomen is soft without tenderness, guarding, mass, rebound or organomegaly. Bowel sounds are normal. No CVA tenderness or inguinal adenopathy noted. chest X-ray The patient left the office before the visit was finished. lingular pneumonia Patient Active Problem List: PNEUMONIA, ORGANISM NOS[486] new PLAN: see orders NE SERVICE TEACHER documented in this encounter Nursing Notes * 08/11/2005 9:00 AM CST >> NIDIA ADLER 08/11/2005 9:02 am No Ibuprofen today. Took Nyquil at 6 am. documented in this encounter Plan of Treatment Not on file documented as of this encounter Procedures Procedure Name Priority Date/Time Associated Diagnosis Comments INFLUENZA A & B STAT 08/11/2005 9:22 AM CANINE SERVICE TEACHER documented in this encounter Results * INFLUENZA A & B (08/11/2005 9:22 AM CANINE SERVICE TEACHER) INFLUENZA A PRESUMPTIVE NEGATIVE PNEG [facility] INFLUENZA B PRESUMPTIVE NEGATIVE PNEG [facility] 08/11/2005 9:22 AM CANINE SERVICE TEACHER 08/11/2005 9:23 AM CANINE SERVICE TEACHER Samir Gonzalez MD MICROBIOLOGY - GENERAL O RDERABLES Final Result Performing Organization Address City/State/[facility] Co de Phone Number [facility] [address] [place] [address] documented in this encounter Visit Diagnoses Diagnosis Pneumonia, organism unspecified(486)- Primary Pneumonia, organism unspecified documented in this encounter Care Teams Order Caller Relationship Specialty Start Date End Date Samir Gonzalez MD [address] [place], [place] [id number] PCP - General 04/05/02 07/17/07 documented as of this encounter
--- OUTSIDE RECORDS SUMMARY | 2024-07-17 03:10 | XMS_ITS | Encounter Summary ---
Author Organization [facility] Address [address] [place] [address]. [place], [place] [address] [place] [address] Care Team Providers Care Lumber Tallier Name Role Phone Samir Gonzalez MD Primary Care Provider + Encounter Details Date Type Department Care Team (Late st Contact Info) Description 08/11/2005 Radiology [facility]) RADIOLOGY [address] [place] [phone] Samir Gonzalez MD [address] [place] [address] Social History Tobacco Use Types Packs/Day Years [...] Date/Time Associated Diagnosis Comments XR CHEST PA+LAT Routine 08/12/2005 Pneumonia, Organism Nos documented in this encounter Results * CR CHEST PA + LAT (08/12/2005) Anatomical Region Laterality Modality Radiographic Shaye ging Samir Gonzalez MD GENERAL IMAGING Final Re sult documented in this encounter Visit Diagnoses Diagnosis Pneumonia, organism unspecified(486)- Primary Pneumonia, organism unspecified documented in this encounter Care Teams Lumber Tallier Relationship Specialty Start Date End Date Samir Gonzalez MD [address] [place] [address] PCP - General 04/05/02 07/17/07 documented as of this encounter
--- OUTSIDE RECORDS SUMMARY | 2024-07-17 03:10 | XMS_ITS | Encounter Summary ---
Author Organization [facility] Address [address] [place] [address]. [place], [place] [address] [place] [address] Care Team Providers Care Injection Mold Technician Name Role Phone Samir Gonzalez MD Primary Care Provider + Reason for Visit * Reason Onset Date Comments Refill Request 05/30/2006 PROZAC 10 MG 1 D AY Q30, LORAZAPAM 1 MG 1 AT 8:00 PM Q30, [facility] [facility] Encounter Details Date Type Department Care Team (Late st Contact Info) Description 05/30/2006 Telephone [facility] INTERNAL MEDICINE [address] [place] [phone] Samir Gonzalez MD [facility] [place] [address] Refill Request (PROZAC 10 MG 1 DAY Q30, LORAZAPAM 1 MG 1 AT 8:00 PM Q30, [employer] [facility]) Social History Tobacco Use Types Packs/Day Years [...] encounter Progress Notes * Sharla Mcmillan - 05/30/2006 4:27 PM CST All protocol parameters met to refill Fluoxetine 10 in am and Lorazepam 1 at 8 pm nightly for 6 months. EN TANK ERECTOR documented in this encounter Plan of Treatment Not on file documented as of this encounter Visit Diagnoses Diagnosis Panic disorder without agoraphobia documented in this encounter Care Teams Injection Mold Technician Relationship Specialty Start Date End Date Samir Gonzalez MD [address] [place] [address] PCP - General 04/05/02 07/17/07 documented as of this encounter
--- OUTSIDE RECORDS SUMMARY | 2024-07-17 03:10 | XMS_ITS | Encounter Summary ---
Author Organization [facility] Address [address] [place] [address]. [place], [place] [address] [place] [address] Care Team Providers Care Pelt Grader Name Role Phone Samir Gonzalez MD Primary Care Provider + Reason for Visit * Reason Comments Report (SCAN) GASTRO CT (SCAN) ABDOMEN & PELVIS Encounter Details Date Type Department Care Team (Late st Contact Info) Description 11/12/2005 Scan [facility] [address] [place] [phone] Scanned, Documents Report (SCAN) (GASTRO); CT (SCAN) (ABDOMEN & PELVIS) Social History Tobacco Use Types Packs/Day Years [...] Name Priority Date/Time Associated Diagnosis Comments CT GENERIC Routine 12/02/2005 documented in this encounter Results * CT (12/02/2005) Anatomical Region Laterality Modality Other us SCANNING Final Result documented in this encounter Visit Diagnoses Not on filedocumented in this encounter Care Teams Pelt Grader Relationship Specialty Start Date End Date Samir Gonzalez MD [address] [place] [address] PCP - General 04/05/02 07/17/07 documented as of this encounter
--- OUTSIDE RECORDS SUMMARY | 2024-07-17 03:10 | XMS_ITS | Encounter Summary ---
Author Organization [facility] Address [address] [place] [address]. [place], [place] [address] [place] [address] Care Team Providers Care Wireless Engineer Name Role Phone Samir Gonzalez MD Primary Care Provider + Reason for Visit * Reason Onset Date Comments Other 11/18/2005 YANETH DROPPED OFF FORM LAST WEEK/IS IT COMPLETED? Encounter Details Date Type Department Care Team (Late st Contact Info) Description 11/18/2005 Telephone [facility] INTERNAL MEDICINE [address] [place] [phone] Samir Gonzalez MD [address] [place] [address] QUESTIONS (YANETH DROPPED OFF FORM LAST WEEK/IS IT COMPLETED?) Social History Tobacco Use Types Packs/Day Years [...] as of this encounter Progress Notes * Miladis Finn - 11/18/2005 9:47 AM CDT Pt advised form ready. Will car pick up driver at PSR desk. * Miladis Finn - 11/18/2005 9:33 AM CDT working on it now. documented in this encounter Plan of Treatment Not on file documented as of this encounter Visit Diagnoses Not on filedocumented in this encounter Care Teams Wireless Engineer Relationship Specialty Start Date End Date Samir Gonzalez MD [address] [place] [address] PCP - General 04/05/02 07/17/07 documented as of this encounter
--- OUTSIDE RECORDS SUMMARY | 2024-07-17 03:10 | XMS_ITS | Encounter Summary ---
Author Organization [facility] Address [address] [place] [address]. [place], [place] [address] [place] [address] Care Team Providers Care Bead Worker Sewing Name Role Phone Samir Gonzalez MD Primary Care Provider + Reason for Visit * Reason Onset Date Comments Refill Request 02/28/2007 [facility] IM[facility] 50MG NEEDED #9 Encounter Details Date Type Department Care Team (Late st Contact Info) Description 02/28/2007 Telephone [facility] INTERNAL MEDICINE [address] [place] [phone] Samir Gonzalez MD [address] [place] [address] Refill Request ([facility] IM[facility] 50MG NEEDED #9) Social History Tobacco Use Types Packs/Day Years [...] Progress Notes * Sharla Mcmillan - 02/28/2007 1:32 PM CDT KEITH 03-31-06; no future appt. Imitrex 50 last ordered #9/1 rf 07-22-06. Reminder note typed on rx to sched ov. documented in this encounter Plan of Treatment Not on file documented as of this encounter Visit Diagnoses Not on filedocumented in this encounter Care Teams Bead Worker Sewing Relationship Specialty Start Date End Date Samir Gonzalez MD [address] [place] [address] PCP - General 04/05/02 07/17/07 documented as of this encounter
--- OUTSIDE RECORDS SUMMARY | 2024-07-17 03:10 | XMS_ITS | Encounter Summary ---
Author Organization [facility] Address [address] [place] [address]. [place], [place] [address] [place] [address] Care Team Providers Care Arc Air Operator Name Role Phone Samir Gonzalez MD Primary Care Provider + Reason for Visit * Reason Onset Date Comments Refill Request 05/02/2006 PROTONIX/40 MG/1 QD/#[facility]. [facility] PT REQUESTS CALL BACK Encounter Details Date Type Department Care Team (Late st Contact Info) Description 05/02/2006 Telephone [facility] INTERNAL MEDICINE [address] [place] [phone] Samir Gonzalez MD [address] [place] [address] Refill Request (PROTONIX/40 MG/1 QD/#30. [facility] [address] [facility] PT REQUESTS CALL BACK) Social History Tobacco Use Types Packs/Day Years [...] as of this encounter Progress Notes * Tiffanie Cardenas - 05/02/2006 11:34 AM CDT Pt notified. * Tiffanie Cardenas - 05/02/2006 11:08 AM CDT KEITH 03/31/06. OV 11/16/05 f/u hospitalization, pt had had an EGD confirming erosive gastritis, taking Protonix 40 1 daily. This was noted in EMR as historical, dc'd 03/31/06 as therapy completed. Pt calling for refills of Protonix. documented in this encounter Plan of Treatment Not on file documented as of this encounter Visit Diagnoses Not on filedocumented in this encounter Care Teams Arc Air Operator Relationship Specialty Start Date End Date Samir Gonzalez MD [address] [place] [address] PCP - General 04/05/02 07/17/07 documented as of this encounter
--- OUTSIDE RECORDS SUMMARY | 2024-07-17 03:10 | XMS_ITS | Encounter Summary ---
Author Organization [facility] Address [address] [place] [address]. [place], [place] [address] [place] [address] Care Team Providers Care Engraver Pantograph Name Role Phone Samir Gonzalez MD Primary Care Provider + Reason for Visit * Reason Comments Physical Encounter Details Date Type Department Care Team (Late Community Health Info) Description 05/20/2006 1:00 PM PRESS CLEANER Office Visit [facility]) OBSTETRICS/GYNECOLOGY [address] [place] [phone] Zully Palacio, NP [address] [place] [address] Physical Social History Tobacco Use Types Packs/Day [...] Sign Reading Time Taken Comments Blood Pressure 100/66 05/20/2006 1:00 PM PRESS CLEANER Pulse 80 05/20/2006 1:00 PM PRESS CLEANER Temperature - - Respiratory Rate - - Oxygen Saturation - - Inhaled Oxygen Concentration - - Weight 82.1 kg (181 lb) 05/20/2006 1:00 PM PRESS CLEANER Height 174 cm (5' 8.5 ) 05/20/2006 1:00 PM PRESS CLEANER Body Mass Index 27.12 05/20/2006 1:00 PM PRESS CLEANER documented in this encounter Progress Notes * Zully Palacio - 05/20/2006 4:28 PM CST Vangie is a 36-year-old, , female. She is a a new patient to this department, who is here today for annual physical and pap. She is 2, para 2. Delivery type(s): delivery for breech or transverse Patient's last menstrual period was 2006. Menstrual cycle length: q 28-32 days. Periods are described as moderate and heavy flow, lasting 7-9 days. Patient changes a tampon and pad q 1-2 hours and they are saturated. She states her periods have become heavier and more painful recently. Dysmenorrhea: premenstrually. Vaginal discharge: normal and physiologic. She is sexually active, no concerns. Dyspareunia:No. Control: vaginal spermicide. She has used this since of last child and feels it is an effective method for her and her . Last pap: 2004 Hx of abnormal pap: no. Menopausal sx: none STD History: Negative Past Medical History Diagnosis Date ??? RHEUMATOID ARTHRITIS 1987 ??? EXCESSIVE MENSTRUATION ??? POLYCYSTIC KIDNEY NOS ??? JAMIA CYSTIC LIVER DIS ??? ENDOMETRIOSIS dx with surgery ??? STOMACH ULCER NOS 2005 dx with endoscopy - placed on Protonix ??? DEPRESSIVE DISORDER NEC slight anxiety assoc Past Surgical History Procedure Date ??? Laparoscopic cholecystectomy 06/18/05 CHOLECYSTECTOMY, LAPAROSCOPIC ??? delivery only ONLY, LOW CERVICAL ??? Endoscopy 2005 dx ulcers Last Labs: CHOLESTEROL Date Value Range Status 06/10/2004 154 0-199 (mg/dL) Final TRIGLYCERIDE Date Value Range Status 06/10/2004 156* 30-149 (mg/dL) Final HDL Date Value Range Status 06/10/2004 37* 40-60 (mg/dL) Final LDL Date Value Range Status 06/10/2004 86 0-99 (mg/dL) Final ] Review of patient's allergies indicates: Sulfa drugs, Ancef and Dicloxacillin Current outpatient prescriptions Medication Sig ??? PROTONIX 40 MG OR TBEC 1 TABLET DAILY ??? FLUOXETINE HCL 10 MG OR TABS 1 TABLET EVERY MORNING ??? LORAZEPAM 1 MG OR TABS 1 TABLET AT 8 PM Immunizations: Last TD: <10 years Hepatitis B: up to date Chicken pox: per patient report, had chicken pox FAMILY HISTORY: Family History Problem Relation ??? hysterectomy [Other] Mother 8 children - uterian prolapse ??? polycystic kidney dx [Other] Father ??? Hypertension Father ??? Hyperlipidemia Father ??? Cancer Sister breast ??? Cancer Sister cervical - dx age 40, had children after surgery ??? Cancer Paternal Aunt breast ??? Cancer Paternal Grandfather kidney disease ??? Cancer Paternal Grandmother leukemia - age 34 ??? Mental Health Mother depression ??? Mental Health Father depression ??? Diabetes Maternal Grandmother SOCIAL HISTORY: Vangie lives with her spouse and children. She denies any current or history of domestic violence. Occupation: [employer]. HEALTH HABITS: Smokes: denies. Recreational drug use: denies. She does exercises by [employer], 1/2 hour 7 days a week. Self breast exams: occasional and no concern. Mammogram: 07/22/2004 after sister dx with breast cancer, normal. Colonoscopy: patient does not meet age/health requirments at this time. Seatbelt use: always. Dental Exams: every 6 months. Vision Exams: annually. Sleep average: 8 hours per night DIETARY HISTORY: Patient has lost weight over the past year. She has gone from 245 lbs in November 2005 to 181 lbs today. She states it is through good eating and exercise. Eats 3 meals per day. Eats 4 servings of vegetables and fruits per day. Calcium intake is excellent. Caffeine intake: 1 serving(s) per day. Alcohol intake: denies use. REVIEW OF SYSTEMS: Denies concerns regarding fever, weight loss, eyes, ears, nose or mouth. Denies any cardiovascular symptoms, to include chest pain or shortness of breath. Denies other respiratory concerns. Denies any GI or concerns. Denies any neurological or mental health concerns. All other systems are negative. PHYSICAL EXAMINATION: BP 100/66 Pulse 80 Ht 5' 8.5 (1.74m) Wt 181 lbs (82.1kg) LMP 2006. Body mass index is 27.12 kg/(m^2). This is a overweight female in no acute distress. HEENT: Unremarkable on gross assessment. Ears/Nose/Throat: negative. Neck: Neck supple. No adenopathy. Thyroid symmetric, normal size, and without nodularity. Lungs: lungs clear to auscultation bilaterally.. Respiratory: No wheezing, rhonchi, or rales heard. Heart: RRR, no murmurs, clicks, gallops or rubs.. Breasts: Inspection negative. No nipple discharge or bleeding. No masses or nodularity palpable, positive findings: fibrocystic changes, no axillary adenopathy. Abdomen: Abdomen soft, non-tender. BS normal. No masses or organomegaly Pelvic: Vaginal: normal vagina and vulva and normal EGBUS. A Thin Prep pap obtained. Bimanual exam:No CMT. Uterus: uterus anteverted and mobile, uterus normal size, shape, consistency, no mass or tenderness and adnexa normal in size without mass or tenderness. Rectovaginal confirms. ASSESSMENT: 1. Preventative medicine exam performed 2. She has normal preventive exam, well woman. 3. EXCESSIVE MENSTRUATION [626.2] - Discussed with patient options for this. Discussed the control pill, patient has been on this in the past but it caused migraines. Discussed using the [employer] and patient handout was given. Patient is going to read over brochure and f/u during her periodfor placement. I gave patient names of providers onsite who place the IUD, she is to call me when she decides so that I can share this hx with them. 4. Depression/Anxiety - advised patient to continue with Prozac 10 mg QD, she is to wean off the lorazepam. While weaning off she can increase to prozac 20 mg QD. F/U as needed. PLAN: 1. Vangie was educated on the results of her exam. 2. Counseling also included: breast self exams, mammography screening, family planning choices, osteoporosis, adequate intake of calcium and vitamin D by reviewing her current calcium needs of 1000 mg per day in divided doses along with vitamin D 400 IU per day, weight and nutritional management guidelines , the positive benefits of regular aerobic exercise and encouraged strength training. Tetanus vaccination is current by report of the patient. Additional lab tests that were ordered today include: Thin Prep Future lab slip given to patient for: lipid panel and CMP Patient will be contacted with results of tests done per [facility] orders. 3. Return to the clinic annually and as needed. 4. Mammogram: Screening is current. 5. Colonoscopy: Patient does not meet age requirements at this time. Vangie leaves with no further questions or concerns and verbalizes understanding the plan of care. S CLEANER documented in this encounter Plan of Treatment Not on file documented as of this encounter Procedures Procedure Name Priority Date/Time Associated Diagnosis Comments CYTOPATH CERV/VAG INTERPRET (PAP SMEAR) Routine 05/20/2006 9:58 AM PRESS CLEANER documented in this encounter Results * CYTOPATH CERV/VAG INTERPRET (PAP SMEAR) (05/20/2006 9:58 AM PRESS CLEANER) COPATH REPORT ?[facility] ?[address] [phone] ? GYNECOLOGIC CYTOLOGY REPORT ? Name: VANGIE YUEN Radha ?Specimen # : [id number] Age: 10 1970 (Age: 36) ?Location: [facility] Lab Sex: F ? Procedure Date: 05/20/2006 Hospital #: [id number] ?Date Processed: 05/24/2006 [facility] Physician(s): Zully Palacio N.P. ? Patient History: LMP: 05-10-06 Mentrual/Preg: Contraceptive: Other:Negative Cancer History: Pertinent History: Negative Treatment History: SPECIMEN: ??Clinic Screening Thin Prep Pap ADEQUACY: ??Satisfactory for Evaluation. DIAGNOSIS: ??NEGATIVE FOR INTRAEPITHELIAL LESIONS OR MALIGNANCY. Demetrius Lomeli (ASCP) Electronically Signed Out On 05/25/2006 ? This document has been printed from the electronic file of the [facility] Information System. This is not an official medical record copy. To obtain an official copy, please refer to the patient's permanent medical record at [facility]. [facility] 05/20/2006 9:58 AM PRESS CLEANER 05/24/2006 9:58 AM PRESS CLEANER us Zully Palacio APNP PATHOLOGY/CYTOLOGY ORDERA BLES Final Result [facility] documented in this encounter Visit Diagnoses Not on filedocumented in this encounter Care Teams Engraver Pantograph Relationship Specialty Start Date End Date Samir Gonzalez MD [address] [place] [address] PCP - General 04/05/02 07/17/07 documented as of this encounter
--- OUTSIDE RECORDS SUMMARY | 2024-07-17 03:10 | XMS_ITS | Encounter Summary ---
Author Organization [facility] Address [address] [place] [address]. [place], [place] [address] [place] [address] Care Team Providers Care Professional Engineer Name Role Phone Unavailable Primary Care Provider Unavailabl e Reason for Visit * Reason Comments Sinus Problem x 1 week Encounter Details Date Type Department Care Team (Late st Contact Info) Description 07/28/2007 3:00 PM FINANCIAL SERVICE REP Office Visit [facility] INTERNAL MEDICINE [address] [place] [address] [place] [phone] Lisa Montana APNP Sinus Problem (x 1 week) Social History [...] Sign Reading Time Taken Comments Blood Pressure 122/90 07/28/2007 3:00 PM FINANCIAL SERVICE REP Pulse 76 07/28/2007 3:00 PM FINANCIAL SERVICE REP Temperature 36.8 ??C (98.2 ??F) 07/28/2007 3:00 PM CS T Respiratory Rate - - Oxygen Saturation - - Inhaled Oxygen Concentration - - Weight - - Height - - Body Mass Index - - documented in this encounter Progress Notes * Lisa Montana - 07/28/2007 3:03 PM CST SUBJECTIVE: Presents with cold symptoms and cough for 1 week. Symptoms include rhinorrhea, productive cough, sinus congestion, post nasal drainage and no fever. OTC cold and cough medications minimally effective. Nonsmoker. Current outpatient prescriptions Medication Sig Dispense Refill ??? ZITHROMAX Z-FAISAL 250 MG OR TABS 2 TABLETS TODAY, THEN 1 TABLET DAILY THEREAFTER 6 0 ??? MYTUSSIN AC 100-10 MG/5ML OR SYRP 2 TEASPOONSFUL EVERY 4-6 HOURS NEEDED 120 0 ??? IMITREX 50 MG OR TABS 1 TABLET 1 TIME ONLY,REPEAT AFTER 2 HR NEEDED-MUST schedule MD appointment prior to further refills 3 0 ??? FLUOXETINE HCL 10 MG OR TABS 1 TABLET EVERY MORNING 30 5 ??? LORAZEPAM 1 MG OR TABS 1 TABLET AT 8 PM 30 5 ??? PROTONIX 40 MG OR TBEC 1 TABLET DAILY 30 11 Allergies Allergen Reactions ??? Sulfa Drugs Rash ??? Ancef (cefazolin Sodium) Shortness of Breath ??? Dicloxacillin Itching OBJECTIVE: General appearance: alert, no distress BP 122/90 Pulse 76 Temp (Src) 98.2 ??F (36.8 ??C) (Oral) Ears: R TM - normal, L TM - normal Nose: clear rhinorrhea and mucosal erythema Sinuses: no tenderness noted over frontal or maxillary sinuses Oropharynx: mild erythema Neck: supple and no adenopathy Lungs: clear to auscultation Heart: regular rate and rhythm ASSESSMENT: sinusitis PLAN: Zithromax 250 mg, 2 on day 1, then 1 per day x 4 days, Mytussin AC 1 to 2 tsp every 4 hrs prn. OTC medications prn per patient preference. Symptomatic treatment discussed and recheck for persistence or worsening of symptoms. ADDENDUM: Also requesting a refill for imitrex; last refilled in May with note attached that she needs to be seen before further refill given. Has not been seen for a year. She was a patient of Dr. Gonzalez and is not sure who she will be establishing with yet. Daughter was recently diagnosed with cancer. Prescribed 3 tabs but told she needs to be seen before next refill. NCIAL SERVICE REP documented in this encounter Plan of Treatment Not on file documented as of this encounter Visit Diagnoses Not on filedocumented in this encounter
--- OUTSIDE RECORDS SUMMARY | 2024-07-17 03:10 | XMS_ITS | Encounter Summary ---
Author Organization [facility] Address [address] [place] [address]. [place], [place] [address] [place] [address] Care Team Providers Care Quality Improvement Analyst Name Role Phone Raquel Gauthier MD Primary Care Provider [phone] Samir Gonzalez MD Primary Care Provider + [...] Visit * Reason Comments Discharge Summary (SCAN) [facility] Encounter Details Date Type Department Care Team (Late st Contact Info) Description 11/13/2005 [facility] BUSINESS OFFICE [address] [place] [phone] Scanned, Documents Discharge Summary (SCAN) ([facility]) Social History Tobacco Use Types Packs/Day Years [...] on filedocumented in this encounter Care Teams Quality Improvement Analyst Relationship Specialty Start Date End Date Raquel Gauthier MD [address] [place] [address] ?? [place] [address] PCP - General 10/30/09 10/30/09 Samir Gonzalez MD [address] [place] [address] PCP - General 07/18/07 07/18/07 Samir Gonzalez MD [address] [place] [address] PCP - General 04/05/02 07/17/07 Aurelio Osei MD [address] [place] [address] PCP - General 03/11/14 Bakari Vasquez DO [address] [place], [place] [id number] PCP - General 01/31/13 03/10/14 Bakari Vasquez DO [address] [place] [address] PCP - General 01/25/13 01/30/13 Bakari Vasquez DO [address] [facility] [place] [address] PCP - General 01/21/13 01/24/13 Bakari Vasquez DO [address] [facility] [address] [place] [address] PCP - General 01/09/13 01/20/13 Bakari Vasquez DO [address] [facility] [address] [place] [address] PCP - General 01/03/13 01/08/13 Bakari Vasquez DO [address] [facility] [address] [place] [address] PCP - General 01/01/13 01/02/13 Bakari Vasquez DO [address] [facility] [address] [place] [address] PCP - General 12/25/12 12/31/12 documented as of this encounter
--- OUTSIDE RECORDS SUMMARY | 2024-07-17 03:10 | XMS_ITS | Encounter Summary ---
Author Organization [facility] Address [address] [place] [address]. [place], [place] [address] [place] [address] Care Team Providers Care Over The Road Driver Name Role Phone Samir Gonzalez MD Primary Care Provider + Reason for Visit * Reason Onset Date Comments Medication 03/31/2006 Encounter Details Date Type Department Care Team (Late st Contact Info) Description 03/31/2006 Nurse Triage [facility] [address] [place] [address] Argenis Resendiz, information systems auditor Social History Tobacco Use Types Packs/Day Years [...] as of this encounter Progress Notes * Argenis Resendiz - 03/31/2006 6:03 PM CDT Negative: all questions in See More Appropriate Guideline section. Negative: all questions in Call PCP Now section. Negative: all questions in Call PCP within 24 Hours section. Negative: all questions in Call Pharmacist within 24 Hours section. Affirmative: Caller has medication question only, adult not sick, and triager answers question Disposition of Health Information only suggested. VERBAL ORDER GIVEN TO [facility]. documented in this encounter Plan of Treatment Not on file documented as of this encounter Visit Diagnoses Not on filedocumented in this encounter Care Teams Over The Road Driver Relationship Specialty Start Date End Date Samir Gonzalez MD [address] [place] [address] PCP - General 04/05/02 07/17/07 documented as of this encounter
--- OUTSIDE RECORDS SUMMARY | 2024-07-17 03:10 | XMS_ITS | Encounter Summary ---
Author Organization [facility] Address [address] [place] [address]. [place], [place] [address] [place] [address] Care Team Providers Care Senior Java J2Ee Developer Name Role Phone Raquel Gauthier MD Primary Care Provider [phone] Samir Gonzalez MD Primary Care Provider + [...] Care Team (Late st Contact Info) Description 06/18/2005 [facility] Health Information Management [address] [place] [address] , Sheila Tate MD Social History Tobacco [...] filedocumented in this encounter Care Teams Senior Java J2Ee Developer Relationship Specialty Start Date End Date Raquel Gauthier MD [address] [employer] ?? [place] [address] PCP - General 10/30/09 10/30/09 Samir Gonzalez MD [address] [place] [address] [id number] PCP - General 07/18/07 07/18/07 Samir Gonzalez MD [address] [place] [address] [id number] PCP - General 04/05/02 07/17/07 Aurelio Osei MD [address] [place] [address] PCP - General 03/11/14 Bakari Vasquez DO [address] [place] [address] PCP - General 01/31/13 03/10/14 Bakari Vasquez DO [address] [place] [address] PCP - General 01/25/13 01/30/13 Bakari Vasquez DO [address] [place] [address] PCP - General 01/21/13 01/24/13 Bakari Vasquez DO [address] [place] [address] PCP - General 01/09/13 01/20/13 Bakari Vasquez DO [address] [facility] [address] [place] [address] PCP - General 01/03/13 01/08/13 Bakari Vasquez DO [address] [facility] [address] [place] [address] PCP - General 01/01/13 01/02/13 Bakari Vasquez DO [address] [facility] [address] [place] [address] PCP - General 12/25/12 12/31/12 documented as of this encounter
--- OUTSIDE RECORDS SUMMARY | 2024-07-17 03:10 | XMS_ITS | Encounter Summary ---
Author Organization [facility] Address [address] [place] [address]. [place], [place] [address] [place] [address] Care Team Providers Care Lathe Tender Name Role Phone Samir Gonzalez MD Primary Care Provider + Reason for Visit * Reason Comments Endoscopy (SCAN) Encounter Details Date Type Department Care Team (Late st Contact Info) Description 11/13/2005 Scan [facility] [address] [place] [phone] Scanned, Documents Endoscopy (SCAN) Social History Tobacco Use Types Packs/Day [...] Procedure Name Priority Date/Time Associated Diagnosis Comments ENDOSCOPY (SCAN ORDER) Routine 11/27/2005 documented in this encounter Results * ENDOSCOPY (11/27/2005) us SCANNING Final Result documented in this encounter Visit Diagnoses Not on filedocumented in this encounter Care Teams Lathe Tender Relationship Specialty Start Date End Date Samir Gonzalez MD [address] [place] [address] PCP - General 04/05/02 07/17/07 documented as of this encounter
--- OUTSIDE RECORDS SUMMARY | 2024-07-17 03:10 | XMS_ITS | Encounter Summary ---
Author Organization [facility] Address [address] [place] [address]. [place], [place] [address] [place] [address] Care Team Providers Care Sloop Captain Name Role Phone Samir Gonzalez MD Primary Care Provider + Reason for Visit * Reason Comments Follow Up pneumonia/CXR done p rior Sinus Problem Encounter Details Date Type Department Care Team (Late st Contact Info) Description 09/15/2005 1:45 PM STEM CRUSHER Office Visit [facility] INTERNAL MEDICINE [address] [place] [phone] Samir Gonzalez MD [address] [place] [address] Follow Up (pneumonia/CXR done prior); Sinus Problem Social History Tobacco Use Types [...] Sign Reading Time Taken Comments Blood Pressure 128/64 09/15/2005 1:45 PM STEM CRUSHER Pulse 76 09/15/2005 1:45 PM STEM CRUSHER Temperature 36 ??C (96.8 ??F) 09/15/2005 1:45 PM STEM CRUSHER Respiratory Rate - - Oxygen Saturation - - Inhaled Oxygen Concentration - - Weight 82.1 kg (181 lb) 09/15/2005 1:45 PM STEM CRUSHER Height 174 cm (5' 8.5 ) 09/15/2005 1:45 PM STEM CRUSHER Body Mass Index 27.12 09/15/2005 1:45 PM STEM CRUSHER documented in this encounter Progress Notes * Samir Gonzalez - 09/15/2005 2:25 PM CST SUBJECTIVE: Presents with sinus problems for 4 weeks. Symptoms include headache(s), rhinorrhea, sore throat, dry cough, fatigue, sinus congestion, tooth pain and post nasal drainage. She denies fevers, shortnessof breath. OBJECTIVE: BP 128/64 Pulse 76 Temp (Src) 96.8 (Oral) Ht 5' 8.5 (1.74m) Wt 181 lbs (82.1kg) LMP 09/10/2005 General appearance: alert, mild distress Ears: R TM - normal, L TM - normal and bulging Nose: mucopurulent rhinorrhea and mucosal edema Sinuses: tender over frontal sinus and bilateral maxillary sinuses Oropharynx: normal Neck: supple and no adenopathy Lungs: clear to auscultation ASSESSMENT: sinusitis PLAN: 1. per EpicCare orders. 2. OTC medications prn per patient preference. 3. Symptomatic treatment discussed and recheck for persistence or worsening of symptoms. CRUSHER documented in this encounter Plan of Treatment Not on file documented as of this encounter Visit Diagnoses Diagnosis Acute sinusitis, unspecified- Primary documented in this encounter Care Teams Sloop Captain Relationship Specialty Start Date End Date Samir Gonzalez MD [address] [place] [address] PCP - General 04/05/02 07/17/07 documented as of this encounter
--- OUTSIDE RECORDS SUMMARY | 2024-07-17 03:10 | XMS_ITS | Encounter Summary ---
Author Organization [facility] Address [address] [place] [address]. [place], [place] [address] [place] [address] Care Team Providers Care Supervisor Mapping Name Role Phone Raquel Gauthier MD Primary Care Provider [phone] Samir Gonzalez MD Primary Care Provider + [...] Care Team (Late st Contact Info) Description 01/23/2007 [facility] [address] [place] [address] , Sheila Tate MD Social History Tobacco [...] filedocumented in this encounter Care Teams Supervisor Mapping Relationship Specialty Start Date End Date Raquel Gauthier MD [address] [facility] [address] ?? [place], [place] [phone] PCP - General 10/30/09 10/30/09 Samir Gonzalez MD [address] [place] [address] [id number] PCP - General 07/18/07 07/18/07 Samir Gonzalez MD [address] [place] [address] [id number] PCP - General 04/05/02 07/17/07 Aurelio Osei MD [address] [place] [address] PCP - General 03/11/14 Bakari Vasquez DO [address] [facility] [address] [place], [place] [phone] PCP - General 01/31/13 03/10/14 Bakari Vasquez DO [address] [place] [address] PCP - General 01/25/13 01/30/13 Bakari Vasquez DO [address] [facility] [address] [place] [address] PCP - General 01/21/13 01/24/13 Bakari Vasquez DO [address] [facility] [address] [place] [address] PCP - General 01/09/13 01/20/13 Bakari Vasquez DO [address] [facility] [address] [place] [address] PCP - General 01/03/13 01/08/13 Bakari Vasquez DO [address] [address] PCP - General 01/01/13 01/02/13 Bakari Vasquez DO [address] [address] PCP - General 12/25/12 12/31/12 documented as of this encounter
--- OUTSIDE RECORDS SUMMARY | 2024-07-17 03:10 | XMS_ITS | Encounter Summary ---
Author Organization [facility] Address [address] [place] [address]. [place], [place] [address] [place] [address] Care Team Providers Care Locator Specialist Name Role Phone Samir Gonzalez MD Primary Care Provider + Reason for Visit * Reason Onset Date Comments Refill Request 07/22/2006 IMMITREX 50MG ME N. #9. CALL TO [facility] ON [facility]. Encounter Details Date Type Department Care Team (Late st Contact Info) Description 07/22/2006 Telephone [facility] INTERNAL MEDICINE [address] [place] [phone] Samir Gonzalez MD [address] [place] [address] Refill Request (IMMITREX 50MG PRN. #9. CALL TO [facility] ON [facility]. ) Social History Tobacco Use Types Packs/Day [...] encounter Progress Notes * Sharla Mcmillan - 07/22/2006 2:18 PM CST Imitrex last ordered #30/no refills 05-02-06. KEITH was CPE with [facility] INSTALLER 05-20-06. Last IM OV 03-31-06. No future appt. E CHARGE RN documented in this encounter Plan of Treatment Not on file documented as of this encounter Visit Diagnoses Not on filedocumented in this encounter Care Teams Locator Specialist Relationship Specialty Start Date End Date Samir Gonzalez MD [address] [place] [address] PCP - General 04/05/02 07/17/07 documented as of this encounter
--- OUTSIDE RECORDS SUMMARY | 2024-07-17 03:10 | XMS_ITS | Encounter Summary ---
Author Organization [facility] Address [address] [place] [address]. [place] [address] [place] [address] Care Team Providers Care Crematorium Operator Name Role Phone Samir Gonzalez MD Primary Care Provider + Encounter Details Date Type Department Care Team (Late st Contact Info) Description 06/18/2005 Orders Only [facility] [address] [address] [place] [address] Slikc Blake MD Social History Tobacco Use Types Packs/Day [...] Procedure Name Priority Date/Time Associated Diagnosis Comments TISSUE EXAM BY PATHOLOGIST Routine 06/18/2005 11:24 AM BUSINESS PROPOSAL REP documented in this encounter Results * TISSUE EXAM BY PATHOLOGIST (06/18/2005 11:24 AM BUSINESS PROPOSAL REP) COPATH REPORT ?[facility] ?PATHOLOGY DEPARTMENT ?[address] ?[place], [place] ??[address] ? Surgical Pathology Report ? Patient Name: VANGIE YUEN ? Med. Rec. #: [id number] ? Billing #: [id number] ?Surgery: 06/18/2005 : 1970 ?Location: 8E ? Received: 06/18/2005 Gender: F ?Clinic #: ?Reported: 06/21/2005 Physician(s): Slick Blake Clinical Summary: None given. Specimen(s) Received Gallbladder Final Diagnosis Gallbladder, resection: ?Chronic cholecystitis with cholelithiasis and cholesterolosis. Code 1 ?? PAS 6 lp1/06/21/2005 ? Electronically Signed Out ? C. F. ??Jr. Rosas M.D., FCAP ? Gross Gallbladder: ??The specimen is received fresh labeled [id number] and consists of a 9.6 x 4.8 x 2.0 cm distended intact gallbladder with a smooth glistening yellow-green serosal surface. The lumen contains a moderate amount of tenacious green bile and multiple hard round coarsely granular yellow calculi which measure from 0.2 to 0.6 cm in greatest diameter. The mucosa is smooth and flat with a yellow-green appearance. There is a prominent reticular yellow pattern consistent with cholesterolosis. No focal abnormalities are noted. The wall measures from 0.2 to 0.4 cm in thickness and shows moderate diffuse edema. The proximal cystic duct is patent and non-dilated. Supervisor Vacuum Metalizing sections are submitted in a single cassette. ? C. F. ??Jr. Rosas M.D., FCAP ? Microscopic Description Microscopic examination was performed. ??See diagnosis. This document has been printed from the electronic file of the [facility] Information System. ??This is not an official medical record copy. ??To obtain an official copy, please refer to the patient's permanent medical record at [facility]. End of Report [id number] [facility] 06/18/2005 11:2 4 AM BUSINESS PROPOSAL REP 06/18/2005 11:24 AM BUSINESS PROPOSAL REP us Slick Blake MD PATHOLOGY/CYTOLOGY ORDERABL ES Final Result [facility] documented in this encounter Visit Diagnoses Not on filedocumented in this encounter Care Teams Crematorium Operator Relationship Specialty Start Date End Date Samir Gonzalez MD [address] [place] [address] PCP - General 04/05/02 07/17/07 documented as of this encounter
--- OUTSIDE RECORDS SUMMARY | 2024-07-17 03:10 | XMS_ITS | Encounter Summary ---
Author Organization [facility] Address [address] [place] [address]. [place], [place] [address] [place] [address] Care Team Providers Care Incendiary Powder Mixer Name Role Phone Samir Gonzalez MD Primary Care Provider + Encounter Details Date Type Department Care Team (Late st Contact Info) Description 09/15/2005 Radiology [facility]) RADIOLOGY [address] [place] [phone] Samir Gonzalez MD [address] [place] [address] Social History Tobacco Use Types Packs/Day [...] Associated Diagnosis Comments XR CHEST PA+LAT Routine 09/17/2005 Pneumonia, Organism Nos documented in this encounter Results * CR CHEST PA + LAT (09/17/2005) Anatomical Region Laterality Modality Radiographic Shaye ging Samir Gonzalez MD GENERAL IMAGING Final Re sult documented in this encounter Visit Diagnoses Diagnosis Pneumonia, organism unspecified(486)- Primary Pneumonia, organism unspecified documented in this encounter Care Teams Incendiary Powder Mixer Relationship Specialty Start Date End Date Samir Gonzalez MD [address] [place] [address] PCP - General 04/05/02 07/17/07 documented as of this encounter
--- OUTSIDE RECORDS SUMMARY | 2024-07-17 03:10 | XMS_ITS | Encounter Summary ---
Author Organization [facility] Address [address] [place] [address]. [place], [place] [address] [place] [address] Care Team Providers Care Ruby On Rails Engineer Name Role Phone Samir Gonzalez MD Primary Care Provider + Reason for Visit * Reason Onset Date Comments Essure 2006 HAS ?'S Encounter Details Date Type Department Care Team (Late st Contact Info) Description 2006 Telephone [facility] [address] [place] [address] Cuong Garland [address] [place] [address] Essure (HAS ?'S) Social History Tobacco Use Types Packs/Day Years [...] as of this encounter Progress Notes * Thelma Poole - 2006 4:40 PM CDT PT WAS INTERESTED IN ESSURE, CALLED INS.PROVIDER TODAY ET WAS TOLD THE PROCEDURE NOT COVERED. C/O HEAVY MENSES THE PAST SEVERAL CYCLES ET WOULD LIKE TO EST W/[facility] ELECTRICAL AND INSTRUMENT TECHNICIAN PROVIDER LMP 05/10/06 LAST PAP 2004 ADVISE PT DAVID CPE PT V/U ET AGREED TO POC. documented in this encounter Plan of Treatment Not on file documented as of this encounter Visit Diagnoses Not on filedocumented in this encounter Care Teams Ruby On Rails Engineer Relationship Specialty Start Date End Date Samir Gonzalez MD [address] [place] [address] PCP - General 04/05/02 07/17/07 documented as of this encounter
--- OUTSIDE RECORDS SUMMARY | 2024-07-17 03:10 | XMS_ITS | Encounter Summary ---
Author Organization [facility] Address [address] [place] [address]. [place], [place] [address] [place] [address] Care Team Providers Care Medical Services Assistant Name Role Phone Samir Aiken MD Primary Care Provider + Reason for Visit * Reason Comments Other Erosive gastritis/ul cers Needs LFT's Fasting Other Refill Request imitrex Encounter Details Date Type Department Care Team (Late st Contact Info) Description 11/16/2005 10:00 AM CDT Office Visit [facility] INTERNAL MEDICINE [address] [place] [phone] Samir Aiken MD [address] [place] [address] [facility] (Erosive gastritis/ulcers Needs LFT's Fasting); RTW slip; Refill Request (imitrex) Social History Tobacco Use Types Packs/Day Years [...] Sign Reading Time Taken Comments Blood Pressure 102/62 11/16/2005 10:00 AM CDT Pulse 68 11/16/2005 10:00 AM CDT Temperature 36.9 ??C (98.4 ??F) 11/16/2005 10:00 AM C DT Respiratory Rate - - Oxygen Saturation - - Inhaled Oxygen Concentration - - Weight 81 kg (178 lb 8 oz) 11/16/2005 10:00 AM C DT Height 173.4 cm (5' 8.25 ) 11/16/2005 10:00 AM C DT Body Mass Index 26.94 11/16/2005 10:00 AM CDT documented in this encounter Progress Notes * Samir Aiken - 11/19/2005 1:29 PM CDT Hotel Breakfast Attendant accepted by SAMIR AIKEN on 11/19/2005 at 1:29 PM ------ Vangie Yuen came back for a followup of her hospitalization. She was in the hospital for 2-3 days for erosive gastritis, pain in the abdomen. Had an EGD which done which confirmed the diagnosis.She is taking Protonix 40 mg daily, and now she is almost symptom free. No weakness, anorexia, nausea, vomiting, constipation, diarrhea, melena, hematochezia. EXAM: On examination, a 35-year-old female, in no distress. Vital signs normal. Lungs clear. Heart sounds normal. The abdomen is soft, scaphoid, mild tenderness in the epigastrium. Bowel sounds normoactive. Rectal not done. Reviewed hospital record. ASSESSMENT: Erosive gastritis. Slowly improving. PLAN: To continue the Protonix. No aspirin or ibuprofen. We will re-evaluate later for the possiblerheumatoid arthritis. JSS/cvd * Samir Aiken - 11/17/2005 1:58 PM CDTQuick Note: Vangiekalani Yuen was informed of results. documented in this encounter Plan of Treatment Not on file documented as of this encounter Procedures Procedure Name Priority Date/Time Associated Diagnosis Comments COMPREHENSIVE METABOLIC PANEL Routine 11/16/2005 10:29 AM CDT documented in this encounter Results * (ABNORMAL) COMPREHENSIVE METABOLIC PANEL (11/16/2005 10:29 AM CDT) SODIUM S/P/B 143(H) 133 - 142 mmol/L [facility] POTASSIUM S/P/B 4.1 3.5 - 5.3 mmol/L [facility] CHLORIDE S/P/B 106 99 - 111 mmol/L [facility] CO2 26 22 - 34 mmol/L [facility] BUN 11 7 - 20 mg/dL [facility] CREATININE S/P/B 0.8 0.6 - 1.3 mg/dL [facility] CALCIUM S/P/B 8.9 8.5 - 10.1 mg/dL [facility] GLUCOSE 81 70 - 110 mg/dL [facility] Comment:FASTING TOTAL PROTEIN S/P/B 7.6 6.4 - 8.2 g/dL [facility] ALBUMIN S/P/B 4.0 3.4 - 5.0 g/dL [facility] AST 33 10 - 37 U/L [facility] ALT 195(H) 30 - 65 U/L [facility] ALKALINE PHOSPHATASE S/P/B 93 50 - 136 U/L [facility] BILIRUBIN TOTAL S/P/B 1.0 0 - 1.0 mg/dL [facility] 11/16/2005 10:2 9 AM CDT 11/16/2005 10:30 AM CDT Samir Aiken MD LABORATORY Final Re sult [facility] [address] [place] [address] documented in this encounter Visit Diagnoses Not on filedocumented in this encounter Care Teams Medical Services Assistant Relationship Specialty Start Date End Date Samir Aiken MD [address] [place] [address] PCP - General 04/05/02 07/17/07 documented as of this encounter
--- OUTSIDE RECORDS SUMMARY | 2024-07-17 03:10 | XMS_ITS | Encounter Summary ---
Author Organization [facility] Address [address] [place] [address]. [place], [place] [address] [place] [address] Care Team Providers Care Inorganic Chemist Name Role Phone Samir Gonzalez MD Primary Care Provider + Reason for Visit * Reason Comments Image (SCAN) ABD FLAT AND UPRIGHT Encounter Details Date Type Department Care Team (Late st Contact Info) Description 11/11/2005 Scan [facility] [address] [place] [phone] Scanned, Documents Image (SCAN) (ABD FLAT AND UPRIGHT) Social History Tobacco Use Types Packs/Day Years [...] Procedure Name Priority Date/Time Associated Diagnosis Comments IMAGE GENERIC Routine 12/02/2005 documented in this encounter Results * IMAGE STUDY (12/02/2005) Anatomical Region Laterality Modality Other us SCANNING Final Result documented in this encounter Visit Diagnoses Not on filedocumented in this encounter Care Teams Inorganic Chemist Relationship Specialty Start Date End Date Samir Gonzalez MD [address] [place] [address] PCP - General 04/05/02 07/17/07 documented as of this encounter
--- OUTSIDE RECORDS SUMMARY | 2024-07-17 03:10 | XMS_ITS | Encounter Summary ---
Author Organization [facility] Address [address] [place] [address]. [place], [place] [address] [place] [address] Care Team Providers Care Supervisor Pumping Name Role Phone Samir Gonzalez MD Primary Care Provider + Reason for Visit * Reason Onset Date Comments Viral Syndrome 01/24/2007 PT STILL NOT FEL ING BETTER PLEASE CALL Encounter Details Date Type Department Care Team (Late st Contact Info) Description 01/24/2007 Telephone [facility] INTERNAL MEDICINE [address] [place] [phone] Samir Gonzalez MD [address] [place] [address] Viral Syndrome (PT STILL NOT FELING BETTER PLEASE CALL) Social History Tobacco Use Types Packs/Day Years [...] as of this encounter Progress Notes * Samir Gonzalez - 01/24/2007 1:50 PM CDT OK * Brigitte Lorenzana - 01/24/2007 1:21 PM CDT PT REPORTS WENT TO ER [id number] LATE PM WITH DIARRHEA X 3 DAYS. GIVEN GI COCKTAIL AND SENT HOME WITH BENTYL AND IMODIUM. HAS HAD ONE DIARRHEA STOOL - GREEN IN COLOR THIS AM. TOLD TO DO 24 HRS OF CLEARLIQUIDS, FOLLOWED BY [facility]. DOES NOT THINK SHE WILL BE ABLE TO GO TO WORK IN AM. WCB IF NEEDS WORK EXCUSE OR OF DIARRHEA CONTINUES. FYI documented in this encounter Plan of Treatment Not on file documented as of this encounter Visit Diagnoses Not on filedocumented in this encounter Care Teams Supervisor Pumping Relationship Specialty Start Date End Date Samir Gonzalez MD [address] [place] [address] PCP - General 04/05/02 07/17/07 documented as of this encounter
--- OUTSIDE RECORDS SUMMARY | 2024-07-17 03:10 | XMS_ITS | Encounter Summary ---
Author Organization [facility] Address [address] [place] [address]. [place], [place] [address] [place] [address] Care Team Providers Care Multifocal Lens Inspector Name Role Phone Samir Aiken MD Primary Care Provider + Reason for Visit * Reason Comments Anxiety Panic Attacks resume d 2 weeks On Prozac/Lorazepam in past Prescription Request Wants to try Xanax Encounter Details Date Type Department Care Team (Late st Contact Info) Description 03/31/2006 10:30 AM CDT Office Visit [facility] [address] [place] [phone] Samir Aiken MD [address] [place] [address] Anxiety (Panic Attacks resumed 2 weeks On Prozac/Lorazepam in past); Prescription Request (Wants to try Xanax) Social History Tobacco Use Types Packs/Day Years [...] Reading Time Taken Comments Blood Pressure 110/70 03/31/2006 10:30 AM CDT Pulse 64 03/31/2006 10:30 AM CDT Temperature 36.6 ??C (97.8 ??F) 03/31/2006 10:30 AM C DT Respiratory Rate - - Oxygen Saturation - - Inhaled Oxygen Concentration - - Weight 81.6 kg (180 lb) 03/31/2006 10:30 AM CDT Height 173.4 cm (5' 8.25 ) 03/31/2006 10:30 AM C DT Body Mass Index 27.17 03/31/2006 10:30 AM CDT documented in this encounter Progress Notes * Samir Aiken - 04/06/2006 8:28 AM CDT Linter Saw Sharpener accepted by SAMIR AIKEN on 04/06/2006 at 8:28 AM ------ Vangie complains of panic, nervousness, unable to sleep for the last 2 weeks. Still with depression but not suicidal. She is getting involved in marriage where she has to lose weight and feels very stressed. She has had a history of panic disorder before also and treated with Prozac and Lorazepam. No alcohol abuse. No marital problems. Rest of review of systems was negative for RS, GI, . PHYSICAL EXAMINATION: A 35-year-old female, alert, oriented x3, well-built, anxious but appropriate. Hygiene appropriate. Speech normal. ASSESSMENT: Panic disorder. Advised different choices. Went with Prozac and Lorazepam. Refill givenl. If everything goes good, she can call and get refills. If not better, then recheck in a month's time. JSS/mck documented in this encounter Nursing Notes * 03/31/2006 10:30 AM CDT >> NIDIA ADLER 03/31/2006 10:51 am Has My [facility] form/info at home. documented in this encounter Plan of Treatment Not on file documented as of this encounter Visit Diagnoses Diagnosis Panic disorder without agoraphobia- Primary documented in this encounter Care Teams Multifocal Lens Inspector Relationship Specialty Start Date End Date Samir Aiken MD [address] [place] [address] PCP - General 04/05/02 07/17/07 documented as of this encounter
--- OUTSIDE RECORDS SUMMARY | 2024-07-17 03:11 | XMS_ITS | Encounter Summary ---
Author Organization [facility] Address [address] [place] [address]. [place], [place] [address] [place] [address] Care Team Providers Care Explosive Operator Supervisor Name Role Phone Samir Gonzalez MD Primary Care Provider + Reason for Visit * Reason Comments Physical Neurologic Problem Encounter Details Date Type Department Care Team (Late st [facility] Info) Description 06/10/2004 8:20 AM E BUSINESS PROJECT MANAGER Office Visit [facility] [address] [place] [phone] Samir Gonzalez MD [address] [place] [address] Physical; Neurologic Problem Social History Tobacco Use Types Packs/Day Years Used Date Smoking Tobacco: Never Alcohol Use Standard Drinks/Week Comments Not Asked 0 (1 standard drink = 0.6 oz pur e alcohol) Comments No Sex and Gender Information Value Date Recorded Sex Assigned at Not on file Legal Sex Female 11:28 AM CDT Gender Identity Not on file Sexual Orientation Not on file documented as of this encounter Last Filed Vital Signs Vital Sign Reading Time Taken Comments Blood Pressure 120/80 06/10/2004 8:22 AM E BUSINESS PROJECT MANAGER Pulse 70 06/10/2004 8:22 AM E BUSINESS PROJECT MANAGER Temperature - - Respiratory Rate - - Oxygen Saturation - - Inhaled Oxygen Concentration - - Weight 108 kg (238 lb) 06/10/2004 8:22 AM E BUSINESS PROJECT MANAGER Height 175.3 cm (5' 9 ) 06/10/2004 8:22 AM E BUSINESS PROJECT MANAGER Body Mass Index 35.15 06/10/2004 8:22 AM E BUSINESS PROJECT MANAGER documented in this encounter Progress Notes * 06/10/2004 8:20 AM CSTcomplete physical examination Review of Systems - Neuro: migraine headaches and syncope but negative, seizures, paralysis, numbness or tingling of hands, numbness or tingling of feet, involuntary movements and tremor CVS: negative, palpitations, irregular heart beat, exertional chest pain or pressure, lower extremity edema and claudication. RS:negative, cough, asthma and wheezing GI: negative, poor appetite, abdominal pain, constipation and jaundice : negative, nocturia, frequency and hematuria Review of systems was completed and was negative. ACTIVE PROBLEMS: Headache, migraine #346.90. PMH: No hx of mi ,hypercholesterolemia ,deep vein thrombosis ,hypertension ,asthma ,Rheumatoid Arthritis ,anemia,diabetes mellitus ,cancer and positive for multiple personality disorder inactive since 1993 ALLERGY: Sulfa rash, diclox, Ancef MEDICATIONS: Immitrex 50 mg #9 TOBACCO: Non smoker or tobacco user ALCOHOL USAGE: occasional FAMILY HISTORY: 67 have hypertension ,prostate cancer ,osteoporosis, sister has breas cancer at age 39, cervical cancer, 4 out of 8 siblings have Adult polycystic kidney disease . SOCIAL HISTORY: , ,Non smoker or tobacco user drinks occasional , PAST SURGERY: 2 c-sections OBJECTIVE: The physical exam is generally normal. Patient appears well, alert and oriented x 3, pleasant, cooperative. Vitals are as noted by nurse. Neck supple and free of adenopathy, or masses. No thyromegaly. BISI. Ears, throat are normal. Chest is clear to IPPA. Heart sounds are normal, no murmurs, clicks, gallops or rubs. Abdomen is soft, no tenderness, masses or organomegaly. Breasts: normal without suspicious masses, skin or nipple changes or axillary nodes, examined in upright and supine position, nipples normal without inversion, lesions or discharge and no skin dimling or peau d'orange. Self exam is encouraged. Pelvis: exam chaperoned by nurse, normal vagina and vulva, pelvic exam is limited due to obesity, nulliparous os, cervical stenosis is noted, uterus anteverted, adnexa normal in s ize without mass or tenderness, rectal exam, no lesions, normal sphincter tone, no masses, negative guaiac, normal pelvic floor musculature and pap smear done today. Exam chaperoned by nurse. Extremities are normal. Peripheral pulses are normal. Screening neurological exam is normal without focal findings. Skin is normal without suspicious lesions noted. ASSESSMENT: Health Maintenance reviewed - updated she will reji due to high risk, skin exam and weight loss discussed. She as migraine ,eye weakness and dizzy episode, with apkd, r/o tia from migraine headaches or aneurysm. PLAN: mra head ldl,pap, ultrasound abdomen, refeil imiitrex for 1 year documented in this encounter Plan of Treatment Not on file documented as of this encounter Procedures Procedure Name Priority Date/Time Associated Diagnosis Comments URINALYSIS, AUTO, COMPLETE Routine 06/10/2004 9:20 AM E BUSINESS PROJECT MANAGER COMPREHENSIVE METABOLIC PANEL Routine 06/10/2004 9:20 AM E BUSINESS PROJECT MANAGER LIPID PANEL Routine 06/10/2004 9:20 AM E BUSINESS PROJECT MANAGER CBC W/DIFF AUTOMATED Routine 06/10/2004 9:20 AM E BUSINESS PROJECT MANAGER CYTOPATH CERV/VAG INTERPRET (PAP SMEAR) Routine 06/10/2004 8:37 AM E BUSINESS PROJECT MANAGER documented in this encounter Results * (ABNORMAL) URINALYSIS, AUTO, W/SCOPE (06/10/2004 9:20 AM E BUSINESS PROJECT MANAGER) COLOR (U) YELLOW [facility] TRANSPARENCY HAZY [facility] U PH 6.5 5.0 - 9.0 [facility] SPECIFIC GRAVITY (U) 1.010 1.003 - 1.040 [facility] URINE GLUCOSE NEGATIVE NEG [facility] KETONE (U) NEGATIVE NEG [facility] PROTEIN NEGATIVE NEG [facility] BILIRUBIN (U) NEGATIVE NEG [facility] UROBILINOGEN 0.2 0.2 - 1.0 eu/dL [facility] BLOOD (U) TRACE(A) NEG [facility] LEUKOCYTES (U) 1+(A) NEG [facility] NITRITES NEGATIVE NEG [facility] WBC/HPF 0-3 Z3 /hpf [facility] RBC/HPF NONE SEEN NSEE /hpf [facility] EPI/HPF 10-15 /hpf [facility] BACTERIA (U) 2+(A) NSEE [facility] 06/10/2004 9:20 AM E BUSINESS PROJECT MANAGER 06/10/2004 9:21 AM E BUSINESS PROJECT MANAGER us Samir Gonzalez MD URINE ORDERABLES Final R esult Performing Organization Address [facility] Co de Phone Number [facility] [address] [place], [place] [phone] * (ABNORMAL) LIPID PANEL (06/10/2004 9:20 AM E BUSINESS PROJECT MANAGER) CHOLESTEROL 154 0 - 199 mg/dL [facility] TRIGLYCERIDES 156(H) 30 - 149 mg/dL [facility] HDL 37(L) 40 - 60 mg/dL [facility] LDL (CALCULATED) 86 0 - 99 mg/dL [facility] RISK 4.2 3.0 - 5.0 [facility] Comment:FASTING 06/10/2004 9:20 AM E BUSINESS PROJECT MANAGER 06/10/2004 9:21 AM E BUSINESS PROJECT MANAGER us Samir Gonzalez MD LABORATORY Final Re sult Performing Organization Address [facility] Co de Phone Number [facility] [address] [place] [phone] * COMPREHENSIVE METABOLIC PANEL (06/10/2004 9:20 AM E BUSINESS PROJECT MANAGER) SODIUM S/P/B 137 137 - 150 mmol/L [facility] POTASSIUM S/P/B 4.3 3.5 - 5.3 mmol/L [facility] CHLORIDE S/P/B 102 99 - 111 mmol/L [facility] CO2 27 22 - 34 mmol/L [facility] BUN 10 7 - 20 mg/dL [facility] CREATININE S/P/B 0.8 0.6 - 1.3 mg/dL [facility] CALCIUM S/P/B 9.1 8.5 - 10.1 mg/dL [facility] GLUCOSE 98 70 - 110 mg/dL [facility] TOTAL PROTEIN S/P/B 7.9 6.4 - 8.2 g/dL [facility] ALBUMIN S/P/B 3.6 3.4 - 5.0 g/dL [facility] AST 13 10 - 37 U/L [facility] ALT 36 30 - 65 U/L [facility] ALKALINE PHOSPHATASE S/P/B 105 50 - 136 U/L [facility] BILIRUBIN TOTAL S/P/B 0.8 0 - 1.0 mg/dL [facility] 06/10/2004 9:20 AM E BUSINESS PROJECT MANAGER 06/10/2004 9:21 AM E BUSINESS PROJECT MANAGER Samir Gonzalez MD LABORATORY Final Re sult Performing Organization Address City/State/[facility] Co de Phone Number [facility] [place] [phone] * (ABNORMAL) CBC W/DIFF AUTOMATED (06/10/2004 9:20 AM E BUSINESS PROJECT MANAGER) WBC 8.5 3.0 - 10.5 k/uL [facility] ABS. LYMPHOCYTES 2.4 0.6 - 4.6 k/uL [facility] LYMPHOCYTES % 27.9 % [facility] ABS. MID CELLS 0.4 0 - 0.9 k/uL [facility] MID CELLS % 4.7 % [facility] ABS. NEUTROPHILS 5.7 1.5 - 7.9 k/uL [facility] NEUTROPHILS % 67.4 % [facility] RBC 4.99 3.70 - 5.20 m/uL [facility] HGB 14.8 11.8 - 15.8 g/dL [facility] HCT 42.5 35.0 - 46.0 % [facility] MCV 85.1 80.0 - 98.0 fL [facility] MCH 29.7 pg [facility] MCHC 34.8 g/dL [facility] RDW 13.4 10.5 - 14.7 % [facility] PLT 237 140 - 440 K/uL [facility] MPV 11.80(H) 6.1 - 10.[address] [facility] 06/10/2004 9:20 AM E BUSINESS PROJECT MANAGER 06/10/2004 9:21 AM E BUSINESS PROJECT MANAGER Samir Leno Gonzalez MD LABORATORY Final Re sult [facility] [address] [place] [phone] * CYTOPATH CERV/VAG INTERPRET (06/10/2004 8:37 AM E BUSINESS PROJECT MANAGER) COPATH REPORT ?[facility] ?[address] [place] [phone] ? GYNECOLOGIC CYTOLOGY REPORT ? Name: VANGIE YUEN ? Specimen # : [id number] Age: 10 1970 (Age: 34) ?Location: [facility] Sex: F ? Procedure Date: 06/10/2004 Hospital #: [id number] ?Date Processed: 06[facility]15/2004 [facility]ician(s): Samir Gonzalez M.D. ? Patient History: LMP: 05/03/04 Mentrual/Preg: Contraceptive: Other: Cancer History: Pertinent History: Treatment History: SPECIMEN: ??Clinic Screening Thin Prep Pap ADEQUACY: ??Satisfactory for Evaluation. DIAGNOSIS: ??NEGATIVE FOR INTRAEPITHELIAL LESIONS OR MALIGNANCY. Demetrius Álvarez (ASCP) Electronically Signed Out On 06/16/2004 ? This document has been printed from the electronic file of the [facility] Information System. This is not an official medical record copy. To obtain an official copy, please refer to the patient's permanent medical record at [facility]. [facility] 06/10/2004 8:37 AM E BUSINESS PROJECT MANAGER 06/15/2004 8:37 AM E BUSINESS PROJECT MANAGER us Samir Gonzalez MD PATHOLOGY/CYTOLOGY ORDER JASWANT Final Result [facility] documented in this encounter Visit Diagnoses Not on filedocumented in this encounter Care Teams Explosive Operator Supervisor Relationship Specialty Start Date End Date Samir Gonzalez MD [address] [place] [address] PCP - General 04/05/02 07/17/07 documented as of this encounter
--- OUTSIDE RECORDS SUMMARY | 2024-07-17 03:11 | XMS_ITS | Encounter Summary ---
Author Organization [facility] Address [address] [place] [address]. [place], [place] [address] [place] [address] Care Team Providers Care Mailing Machine Helper Name Role Phone Samir Gonzalez MD Primary Care Provider + Reason for Visit * RADIOLOGY SERVICES (Routine) - Closed Specialty Diagnoses / Procedures Referred By Contac t Referred To Contact RADIOLOGY Diagnoses MRA HEAD/ SUNDLASS/ ORDERS REQ/ mri: new Procedures MRA HEAD W/[place] [address] [place] [address] Phone: tel: fax: [facility]) RADIOLOGY [address] [place] [phone] Phone: tel: Referral ID Status Reason Start Date Expiration Date Visits Requested Visits Authorized [id number] Closed ARISE CONSULTATION 1 1 Encounter Details Date Type Department Care Team (Late st Contact Info) Description 06/18/2004 12:00 PM OIL PIPE INSPECTOR Radiology [facility]) RADIOLOGY [address] [place] [phone] Social History Tobacco Use Types Packs/Day Years [...] as of this encounter Progress Notes * Frankie Gaxiolastevencarlos - 06/19/2004 12:00 AM CSTAssociated Order(s): MRA HEAD WO CONTRAST Refer. Physician: Samir Gonzalez MD Refer. ETHYLENE COMPRESSOR OPERATOR/PA: X-Ray #: [id number] X-Ray Tech: KARLEY MR REPORT - [facility] MRA head without contrast. FINDINGS: Intracranial MRA was performed through the area of the absentee-shawnee of Way. No significant narrowing of the visualized portions of the internal carotids or vertebral basilar artery is identified. The visualized portions of the intercranial circulation are essentially unremarkable. Note is made of patent small right posterior communicating artery. RKK/cme documented in this encounter Plan of Treatment Not on file documented as of this encounter Procedures Procedure Name Priority Date/Time Associated Diagnosis Comments MRA HEAD WO CON Routine 06/19/2004 Transient Cerebral Ischemia Nos documented in this encounter Results * MRA HEAD WO CONTRAST (06/19/2004) Anatomical Region Laterality Modality Magnetic Resonan ce Narrative Procedure Note Frankie Bobo - 06/19/2004 12:00 AM OIL PIPE INSPECTOR Refer. Physician: Samir Gonzalez MD Refer. ETHYLENE COMPRESSOR OPERATOR/PA: X-Ray #: [id number] X-Ray Tech: KARLEY MR REPORT - [facility] MRA head without contrast. FINDINGS: Intracranial MRA was performed through the area of the absentee-shawnee ofWillis. No significant narrowing of the visualized portions of theinternal carotids or vertebral basilar artery is identified. The visualized portions of the intercranial circulation are essentiallyunremarkable. Note is made of patent small right posterior communicatingartery. RKK/cme Samir Gonzalez MD MRI Final Re sult documented in this encounter Visit Diagnoses Diagnosis Unspecified transient cerebral ischemia- Primary documented in this encounter Care Teams Mailing Machine Helper Relationship Specialty Start Date End Date Samir Gonzalez MD [address] [place] [address] PCP - General 04/05/02 07/17/07 documented as of this encounter
--- OUTSIDE RECORDS SUMMARY | 2024-07-17 03:11 | XMS_ITS | Encounter Summary ---
Author Organization [facility] Address [address] [place] [address]. [place], [place] [address] [place] [address] Care Team Providers Care Ear Specialist Name Role Phone Samir Gonzalez MD Primary Care Provider + Encounter Details Date Type Department Care Team (Late st Contact Info) Description 07/22/2004 9:00 AM ANCHOR TACKER Radiology [facility]) RADIOLOGY [address] [place] [phone] Social History Tobacco Use Types Packs/Day [...] as of this encounter Progress Notes * Adrian English - 07/23/2004 12:00 AM CSTAssociated Order(s): MASON MAMM DIG SCREENING Refer. Physician: Samir Gonzalez MD Refer. PLASTICS SCIENTIST/PA: X-Ray #: [id number] X-Ray Tech: MAMMOGRAPHY REPORT -- [facility] X-RAY VIEW(S) ORDERED: Mason Mammo Dig Screen CAD w or w/o Dig Screen REQUISITION HISTORY: Compare to [facility] 05/12/2000. INTERPRETATION: Digital bilateral mammogram with CAD. INDICATION: Screening. Compared to May 12, 2000. FINDINGS: There is no significant change in appearance. There are no current findings suggestive ofnew or enlarging breast malignancy. BIRADS CATEGORY: 1 - Negative. MAGALYG/ramyb OR TACKER documented in this encounter Plan of Treatment Not on file documented as of this encounter Procedures Procedure Name Priority Date/Time Associated Diagnosis Comments MASON MAMM DIG SCREENING Routine 07/23/2004 Screening Mamm-Mailg Neopl-Other Screening Mamm-Malig Neopl-Hi Risk documented in this encounter Results * MASON MAMM DIG SCREENING (MAMDSCRB) (07/23/2004) Anatomical Region Laterality Modality Mammography Narrative Procedure Note Adrian English - 07/23/2004 12:00 AM ANCHOR TACKER Refer. Physician: Samir Gonzalez MD Refer. PLASTICS SCIENTIST/PA: X-Ray #: [id number] X-Ray Tech: MAMMOGRAPHY REPORT -- [facility] ORDERED: [facility] Mammo Dig Screen CAD w or w/o Dig Screen REQUISITION HISTORY: Compare to [facility] 05/12/2000. INTERPRETATION: Digital bilateral mammogram with CAD. INDICATION: Screening. Compared to May 12, 2000. FINDINGS: There is no significant change in appearance. There are nocurrent findings suggestive of new or enlarging breast malignancy. BIRADS CATEGORY: 1 - Negative. GMG/ramyb Samir Gonzalez MD MAMMO Final Re sult documented in this encounter Visit Diagnoses Diagnosis Other screening mammogram Screening mammogram for high-risk patient documented in this encounter Care Teams Ear Specialist Relationship Specialty Start Date End Date Samir Gonzalez MD [address] [place] [address] PCP - General 04/05/02 07/17/07 documented as of this encounter
--- OUTSIDE RECORDS SUMMARY | 2024-07-17 03:11 | XMS_ITS | Encounter Summary ---
Author Organization [facility] Address [address] [place] [address]. [place], [place] [address] [place] [address] Care Team Providers Care Lard Maker Name Role Phone Raquel Gauthier MD Primary Care Provider [phone] Samir Gonzalez MD Primary Care Provider + [...] Care Team (Late st Contact Info) Description 09/03/2000 Scan [facility] Health Information Management [facility] [address] [place], [place] [phone] , Sheila Tate MD Social History Tobacco Use Types Packs/Day Years Used Date Smoking Tobacco: Never Assessed Comments Unknown Sex and Gender Information Value Date Recorded Sex Assigned at Not on file Legal Sex Female 11:28 AM CDT Gender Identity Not on file Sexual Orientation Not on file documented as of this encounter Plan of Treatment Not on file documented as of this encounter Visit Diagnoses Not on filedocumented in this encounter Care Teams Lard Maker Relationship Specialty Start Date End Date Raquel Gauthier MD [address] [facility] [place] [address] PCP - General 10/30/09 10/30/09 Samir Gonzalez MD [address] [place] [address] PCP - General 07/18/07 07/18/07 Samir Gonzalez MD [address] [place] [id number] PCP - General 04/05/02 07/17/07 [place] [address] [place] [address] PCP - General 03/11/14 Bakari Vasquez DO [address] [place] [address] PCP - General 01/31/13 03/10/14 Bakari Vasquez DO [address] [place] [address] PCP - General 01/25/13 01/30/13 Bakari Vasquez DO [address] [place] [address] PCP - General 01/21/13 01/24/13 Bakari Vasquez DO [address] [place] [address] PCP - General 01/09/13 01/20/13 Bakari Vasquez DO [address] [facility] [address] [place] [address] PCP - General 01/03/13 01/08/13 Bakari Vasquez DO [address] [facility] [address] [place] [address] PCP - General 01/01/13 01/02/13 Bakari Vasquez DO [address] [facility] [address] [place] [address] PCP - General 12/25/12 12/31/12 documented as of this encounter
--- OUTSIDE RECORDS SUMMARY | 2024-07-17 03:11 | XMS_ITS | Encounter Summary ---
Author Organization [facility] Address [address] [place] [address]. [place], [place] [address] [place] [address] Care Team Providers Care Elementary Special Education Teacher Name Role Phone Samir Gonzalez MD Primary Care Provider + Reason for Visit * Reason Comments Other Encounter Details Date Type Department Care Team (Late st Contact Info) Description 06/08/2004 4:00 PM DISTRIBUTION MANAGER Office Visit [facility] [address] [place] [address] [phone] Samir Gonzalez MD [address] [place] [address] swellen face Social History Tobacco Use Types Packs/Day Years Used Date Smoking Tobacco: Never Assessed Comments No Sex and Gender Information Value Date Recorded Sex Assigned at Not on file Legal Sex Female 11:28 AM CDT Gender Identity Not on file Sexual Orientation Not on file documented as of this encounter Last Filed Vital Signs Vital Sign Reading Time Taken Comments Blood Pressure 122/86 06/08/2004 4:10 PM DISTRIBUTION MANAGER Pulse 80 06/08/2004 4:10 PM DISTRIBUTION MANAGER Temperature 36.7 ??C (98 ??F) 06/08/2004 4:10 PM DISTRIBUTION MANAGER Respiratory Rate 16 06/08/2004 4:10 PM DISTRIBUTION MANAGER Oxygen Saturation - - Inhaled Oxygen Concentration - - Weight 108.4 kg (239 lb) 06/08/2004 4:10 PM DISTRIBUTION MANAGER Height - - Body Mass Index - - documented in this encounter Progress Notes * 06/08/2004 4:00 PM CSTSUBJECTIVE: Vangie Yuen is a 34-year-old female er follow up for pain in left eye which was treatd with ansef and diclox ahd had reaction to it . now using quixin eye drops and is sx free. she has normal vision, conjuctica, face. ASSESSMENT: conjunctivitis improving. drug reaction resolving. finish quixin . documented in this encounter Plan of Treatment Not on file documented as of this encounter Visit Diagnoses Not on filedocumented in this encounter Care Teams Elementary Special Education Teacher Relationship Specialty Start Date End Date Samir Gonzalez MD [address] [place], [place] [phone] PCP - General 04/05/02 07/17/07 documented as of this encounter
--- OUTSIDE RECORDS SUMMARY | 2024-07-17 03:11 | XMS_ITS | Encounter Summary ---
Author Organization [facility] Address [address] [place] [address]. [place], [place] [address] [place] [address] Care Team Providers Care It Help Desk Technician Name Role Phone Raquel Gauthier MD Primary Care Provider [phone] Samir Gonzalez MD Primary Care Provider + Samir Gonzalez MD Primary Care Provider + None, Provider Primary Care Provider Unavaila ble Manarang, Don DO Primary Care Provider [phone] Manarang, Don DO Primary Care Provider [phone] Manarang, Don DO Primary Care Provider [phone] Manarang, Don DO Primary Care Provider [phone] Manarang, Don DO Primary Care Provider [phone] Manarang, Don DO Primary Care Provider [phone] Manarang, Don DO Primary Care Provider [phone] Encounter Details Date Type Department Care Team (Late st Contact Info) Description 09/18/2004 Scan [facility] Health Information Management [employer] [place] [address] , Sheila Tate MD Social History Tobacco [...] on filedocumented in this encounter Care Teams It Help Desk Technician Relationship Specialty Start Date End Date Raquel Gauthier MD [address] [employer] ?? [place] [address] PCP - General 10/30/09 10/30/09 Samir Gonzalez MD [address] [place] [address] [id number] PCP - General 07/18/07 07/18/07 Samir Gonzalez MD [address] [place] [address] [id number] PCP - General 04/05/02 07/17/07 Aurelio Osei MD [address] [place] [address] PCP - General 03/11/14 Bakari Vasquez DO [address] [place] [address] PCP - General 01/31/13 03/10/14 Bakari Vasquez DO [address] [place] [address] PCP - General 01/25/13 01/30/13 Bakari Vasquez DO [address] [place] [address] PCP - General 01/21/13 01/24/13 Bakari Vasquez DO [address] [place] [address] PCP - General 01/09/13 01/20/13 Bakari Vasquez DO 501 [facility] [address] [place] [address] PCP - General 01/03/13 01/08/13 Bakari Vasquez DO [address] [facility] [address] [place] [address] PCP - General 01/01/13 01/02/13 Bakari Vasquez DO 501 [facility] [address] [place], [place] [phone] PCP - General 12/25/12 12/31/12 documented as of this encounter
--- OUTSIDE RECORDS SUMMARY | 2024-07-17 03:11 | XMS_ITS | Encounter Summary ---
Author Organization [facility] Address [address] [place] [address]. [place], [place] [address] [place] [address] Care Team Providers Care Medical Services Manager Name Role Phone Raquel Gauthier MD Primary Care Provider [phone] Samir Gonzalez MD Primary Care Provider + [...] Care Team (Late st Contact Info) Description 06/07/2004 Scan [facility] Health Information Management [facility] [place] [facility] [place], [place] [id number] , Sheila Tate MD Social History Tobacco [...] in this encounter Care Teams Medical Services Manager Relationship Specialty Start Date End Date Raquel Gauthier MD [address] [facility] ?? [place] [address] PCP - General 10/30/09 10/30/09 Samir Gonzalez MD [address] [place] [address] PCP - General 07/18/07 07/18/07 Samir Gonzalez MD [address] [place] [address] [phone] PCP - General 04/05/02 07/17/07 [place] [address] [place] [address] PCP - General 03/11/14 Bakari Vasquez DO [address] [place] [address] PCP - General 01/31/13 03/10/14 Bakari Vasquez DO [address] [place] [address] PCP - General 01/25/13 01/30/13 Bakari Vasquez DO [address] [place] [address] PCP - General 01/21/13 01/24/13 Bakari Vasquez DO [address] [place] [address] PCP - General 01/09/13 01/20/13 Bakari Vasquez DO 501 [facility] [address] [place] [address] PCP - General 01/03/13 01/08/13 Bakari Vasquez DO 501 [facility] [address] [place] [address] PCP - General 01/01/13 01/02/13 Bakari Vasquez DO 501 [facility] [address] [place] [address] PCP - General 12/25/12 12/31/12 documented as of this encounter
--- OUTSIDE RECORDS SUMMARY | 2024-07-17 03:11 | XMS_ITS | Encounter Summary ---
Author Organization [facility] Address [address] [place] [address]. [place], [place] [phone] [place] [address] Care Team Providers Care Railroad Track Repair Supervisor Name Role Phone Raquel Gauthier MD Primary Care Provider [phone] Samir Gonzalez MD Primary Care Provider + [...] Care Team (Late st Contact Info) Description 05/02/2002 [facility] Health Information Management [address] [place] [address] Sheila Inman MD Social History Tobacco [...] on filedocumented in this encounter Care Teams Railroad Track Repair Supervisor Relationship Specialty Start Date End Date Raquel Gauthier MD [address] [facility] ?? [place] [address] PCP - General 10/30/09 10/30/09 Samir Gonzalez MD [address] [place] [address] PCP - General 07/18/07 07/18/07 Samir Gonzalez MD [address] [place] [address] [phone] PCP - General 04/05/02 07/17/07 [place] [address] [place] [address] PCP - General 03/11/14 Bakari Vasquez DO [address] [place] [address] PCP - General 01/31/13 03/10/14 Bakari Vasquez DO [address] [place] [address] PCP - General 01/25/13 01/30/13 Bakari Vasquez DO [address] [place] [address] PCP - General 01/21/13 01/24/13 Bakari Vasquez DO [address] [place] [address] PCP - General 01/09/13 01/20/13 Bakari Vasquez DO 501 [facility] [address] [place] [address] PCP - General 01/03/13 01/08/13 Bakari Vasquez DO 501 [facility] [address] [place] [address] PCP - General 01/01/13 01/02/13 Bakari Vasquez DO 501 [facility] [address] [place] [address] PCP - General 12/25/12 12/31/12 documented as of this encounter
--- OUTSIDE RECORDS SUMMARY | 2024-07-17 03:11 | XMS_ITS | Encounter Summary ---
Author Organization [facility] Address [address] [place] [address]. [place], [place] [phone] [place] [address] Care Team Providers Care Finished Cigar Maker Name Role Phone Raquel Gauthier MD Primary Care Provider [phone] Samir Gonzalez MD Primary Care Provider + Saimr Gonzalez MD Primary Care Provider + None, [...] Care Team (Late st Contact Info) Description 09/10/2000 Scan [facility] Health Information Management [facility] [place], [place] [phone] , Sheila Tate MD Social History Tobacco [...] on filedocumented in this encounter Care Teams Finished Cigar Maker Relationship Specialty Start Date End Date Raquel Gauthier MD [address] [facility] ?? [place] [address] PCP - General 10/30/09 10/30/09 Samir Gonzalez MD [address] [place] [address] PCP - General 07/18/07 07/18/07 Samir Gonzalez MD [address] [place] [address] [phone] PCP - General 04/05/02 07/17/07 [place] [address] [place] [address] PCP - General 03/11/14 Bakari Vasquez DO [address] [place] [address] PCP - General 01/31/13 03/10/14 Bakari Vasquez DO [address] [place] [address] PCP - General 01/25/13 01/30/13 Bakari Vasquez DO [address] [place] [address] PCP - General 01/21/13 01/24/13 Bakari Vasquez DO [address] [place] [address] PCP - General 01/09/13 01/20/13 Bakari Vasquez DO 501 [facility] [address] [place] [address] PCP - General 01/03/13 01/08/13 Bakari Vasquez DO 501 [facility] [address] [place] [address] PCP - General 01/01/13 01/02/13 Bakari Vasquez DO 501 [facility] [address] [place] [address] PCP - General 12/25/12 12/31/12 documented as of this encounter
--- OUTSIDE RECORDS SUMMARY | 2024-07-17 03:11 | XMS_ITS | Encounter Summary ---
Author Organization [facility] Address [address] [place] [address]. [place], [place] [phone] [place] [address] Care Team Providers Care Negative Retoucher Name Role Phone Samir Gonzalez MD Primary Care Provider + Reason for Visit * Reason Comments Follow Up Call [facility] 09/19,09/23 Encounter Details Date Type Department Care Team (Late st Contact Info) Description 09/25/2004 11:00 AM AUTO MECHANICS TEACHER Office Visit [facility] INTERNAL MEDICINE [address] [place] [phone] Samir Gonzalez MD [address] [place] [address] Follow Up Call ([facility] 09/19,09/23) Social History Tobacco Use Types Packs/Day Years [...] Sign Reading Time Taken Comments Blood Pressure 128/82 09/25/2004 11:00 AM AUTO MECHANICS TEACHER Pulse 84 09/25/2004 11:00 AM AUTO MECHANICS TEACHER Temperature 36.3 ??C (97.4 ??F) 09/25/2004 11:[address] Respiratory Rate - - Oxygen Saturation - - Inhaled Oxygen Concentration - - Weight 109.5 kg (241 lb 8 oz) 09/25/2004 11:00 A M AUTO MECHANICS TEACHER Height 174 cm (5' 8.5 ) 09/25/2004 11:00 AM AUTO MECHANICS TEACHER Body Mass Index 36.19 09/25/2004 11:00 AM AUTO MECHANICS TEACHER documented in this encounter Progress Notes * 09/25/2004 11:00 AM CSTFeeling like having nervous break down unable to work, severe migraine headaches , nervous for last1 month or , geeting worse. She denies depression. she has hx of anxiety problem before and had nervous break down 89 does not want psyche Review of systems was completed and was negative. OBJECTIVE: Obese built, Alert Oriented x3, mild distress,BP 128/82 Pulse 84 Temp (Src) 97.4 (Oral) Ht 5'8.5 (1.74m) Wt 241 lbs 8.0 oz (109.5kg) LMP 09/13/2004, Speech fast, good ye to eye contact. ASSESSMENT: anxiety generlised PLAN: return to work 10/05/04 Lorazepam 0.5 mg tab 1 bid 60 time spent 15 minutes documented in this encounter Plan of Treatment Not on file documented as of this encounter Visit Diagnoses Not on filedocumented in this encounter Care Teams Negative Retoucher Relationship Specialty Start Date End Date Samir Gonzalez MD [address] [place] [address] PCP - General 04/05/02 07/17/07 documented as of this encounter
--- OUTSIDE RECORDS SUMMARY | 2024-07-17 03:11 | XMS_ITS | Encounter Summary ---
Author Organization [facility] Address [address] [place] [address]. [place], [place] [address] [place] [address] Care Team Providers Care Harmonica Maker Name Role Phone Raquel Gauthier MD Primary Care Provider [phone] Samir Gonzalez MD Primary Care Provider + Samir Gonzalez MD Primary Care Provider + None, Provider Primary Care Provider Unavaila ble Manarang, Don DO Primary Care Provider [phone] Manarang, Don DO Primary Care Provider [phone] Manarang, Don DO Primary Care Provider [phone] Manarang, Don DO Primary Care Provider [phone] Manarang, Don DO Primary Care Provider [phone] Manarang, Don DO Primary Care Provider [phone] Manarang, Don DO Primary Care Provider [phone] Encounter Details Date Type Department Care Team (Late st Contact Info) Description 09/23/2004 Scan [facility] Health Information Management [facility] [place] [address] , Sheila Tate MD Social [...] on filedocumented in this encounter Care Teams Harmonica Maker Relationship Specialty Start Date End Date Raquel Gauthier MD [address] [employer] ?? [place] [address] PCP - General 10/30/09 10/30/09 Samir Gonzalez MD [address] [place] [address] [id number] PCP - General 07/18/07 07/18/07 Samir Gonzalez MD [address] [place] [address] [id number] PCP - General 04/05/02 07/17/07 Aurelio Osei MD [address] [place] [address] PCP - General 03/11/14 Bakari Vasquez DO [address] [place] [address] PCP - General 01/31/13 03/10/14 Bakari Vasquez DO [address] [place] [address] PCP - General 01/25/13 01/30/13 Bakari Vasquez DO [address] [place] [address] PCP - General 01/21/13 01/24/13 Bakari Vasquez DO [address] [place] [address] PCP - General 01/09/13 01/20/13 Bakari Vasquez DO 501 [facility] [address] [place] [address] PCP - General 01/03/13 01/08/13 Bakari Vasquez DO 501 [facility] [address] [place] [address] PCP - General 01/01/13 01/02/13 Bakari Vasquez DO 501 [facility] [address] [place], [place] [phone] PCP - General 12/25/12 12/31/12 documented as of this encounter
--- OUTSIDE RECORDS SUMMARY | 2024-07-17 03:11 | XMS_ITS | Encounter Summary ---
Author Organization [facility] Address [address] [place] [address]. [place], [place] [address] [place] [address] Care Team Providers Care Forestry Support Specialist Name Role Phone Raquel Gauthier MD Primary Care Provider [phone] Samir Gonzalez MD Primary Care Provider + [...] Team (Late st Contact Info) Description 06/18/2004 [facility] Health Information Management [address] [place] [address] Sheila Inman MD Social History Tobacco [...] on filedocumented in this encounter Care Teams Forestry Support Specialist Relationship Specialty Start Date End Date Raquel Gauthier MD [address] [employer] ?? [place] [address] PCP - General 10/30/09 10/30/09 Samir Gonzalez MD [address] [place] [address] [phone] PCP - General 07/18/07 07/18/07 Samir Gonzalez MD [address] [place] [address] [phone] PCP - General 04/05/02 07/17/07 Aurelio Osei MD [address] [place] [address] PCP - General 03/11/14 Bakari Vasquez DO [address] [place] [address] PCP - General 01/31/13 03/10/14 Bakari Vasquez DO [address] [place] [address] PCP - General 01/25/13 01/30/13 Bakari Vasquez DO [address] [place] [address] PCP - General 01/21/13 01/24/13 Bakari Vasquez DO [address] [place] [address] PCP - General 01/09/13 01/20/13 Bakari Vasquez DO 501 [facility] [address] [place] [address] PCP - General 01/03/13 01/08/13 Bakari Vasquez DO 501 [facility] [address] [place] [address] PCP - General 01/01/13 01/02/13 Bakari Vasquez DO 501 [facility] [address] [place], [place] [phone] PCP - General 12/25/12 12/31/12 documented as of this encounter
--- OUTSIDE RECORDS SUMMARY | 2024-07-17 03:27 | XMS_ITS | Data Portability ---
Author Organization [place] - [employer], Main Office Address [address] [place] [address] Care Team Providers Care Director Oracle Database Name Role Phone CHRISTIAN GEORGE Primary Care Provider CHRISTIAN GEORGE Referring Provider Assessment Encounter Date Assessment Date Assessment LastModified by Organization Details LastModified Time 10/12/2022 10/12/2022 Blood work Will have her see Cardiology about her veins Sleep study Targets for blood pressure A1c and lipid discussed Follow-up 4 months [email or web address] Not available 10/12/2022 22:55:15 Plan of Treatment Reminders Order Date Submit Date Provider Last Modified By Organization Details Last Modified Time Details Appointments None record ed. Lab None record ed. Referral None record ed. Procedures None record ed. Surgeries None record ed. Imaging None record ed. Medication Orders None record ed. Patient TargetsNo targets recorded. Patient InstructionsNo instructions recorded. Reason for Referral None Reported. Results Created Date Observation Date Name Description Value Unit Range Abnormal Flag Note LastModifiedBy Organization Detail LastModifiedTime 06/15/2006/15/2022 TSH thyroid-stim ulating hormone 3.910 uIU/m L 0.465- 4.680 Not Available [facility] (Lab) [address] [place], [address], 06/15/2022 21:20:58 06/15/20 22 06/15/2022 T3 FREE free T3 3.2 pg/mL 2.77-5 .27 Not Available [facility] (Lab) [address] [place], [address], 06/15/2022 21:15:55 06/15/20 22 06/15/2022 T4 FREE free T4 1.31 NG/dL 0.78-2 .19 Not Available [facility] (Lab) [address] [place], [address], 06/15/2022 21:15:50 06/15/20 22 06/15/2022 HEMOG LOBIN A1C HA1C 5.3 % 4.0-6. 0 Diabe magdiel Scree alan Crite erwin: <5.7% Consi stent with absen ce of diabe magdiel 5.7-6 .4% Consi stent with incre ased risk for diabe magdiel (pred iabet es) >OR=6 .5% Consi stent with diabe magdiel REFER ENCE: Diabe magdiel Care 2016, 39(Levin ppl.1 ):s13 -s22 Not Available [facility] (Lab) [address] [place], [address], 06/15/2022 21:07:56 06/15/20 22 06/15/2022 COMPR EHENS ANISHA METAB OLIC PANEL anion gap 15.3 mmol/ L 14-22 Not Available [facility] (Lab) [address] [place], [address], 06/15/2022 20:49:07 06/15/20 22 06/15/2022 COMPR EHENS ANISHA METAB OLIC PANEL sodium 140 mmol/ L 137-14 5 Not Available [facility] (Lab) [address] [place], [address], 06/15/2022 20:49:07 06/15/20 22 06/15/2022 COMPR EHENS ANISHA METAB OLIC PANEL potassium 4.3 mmol/ L 3.5-5. 1 Not Available [facility] (Lab) [address] [place], [address], 06/15/2022 20:49:07 06/15/20 22 06/15/2022 COMPR EHENS ANISHA METAB OLIC PANEL chloride 101 mmol/ L 98-107 Not Available [facility] (Lab) [address] [place], [address], 06/15/2022 20:49:07 06/15/20 22 06/15/2022 COMPR EHENS ANISHA METAB OLIC PANEL carbon dioxide 28 mmol/ L 22-30 Not Available [facility] (Lab) [address] [place], [address], 06/15/2022 20:49:07 06/15/20 22 06/15/2022 COMPR EHENS ANISHA METAB OLIC PANEL glucose 98 mg/dL 70-99 Not Available [facility] (Lab) [address] [place], [address], 06/15/2022 20:49:07 06/15/20 22 06/15/2022 COMPR EHENS ANISHA METAB OLIC PANEL BUN 17 mg/dL 8-19 Not Available [facility] (Lab) [address] [place], [address], 06/15/2022 20:49:07 06/15/20 22 06/15/2022 COMPR EHENS ANISHA METAB OLIC PANEL creatinine 1.07 mg/dL 0.66-1 .25 Not Available [facility] (Lab) [address] [place], [address], 06/15/2022 20:49:07 06/15/20 22 06/15/2022 COMPR EHENS ANISHA METAB OLIC PANEL GFR 54 Refer ence Range : [place] ge GFR Healt hy Adult : >60 mL/mi n/1.7 3 m2 Chron ic Kidne y Disea se: 15-60 mL/mi n/1.7 3 m2 Kidne y Failu re: <15/m L/min /1.73 m2 www.n iddk. nih.g ov The MDRD study equat ion has not been valid ated in child jason <18 years of age; pregn ant women ; the elder ly >85 years of age; or in some racia l or ethni c subgr oups, such as Hispa nics. Outsi de the valid ated kathia eters , estim ated GFR is less accur ate, requi ring clini ania judgm ent on a case- by-ca se basis . Clini ania inter preta tion for other races and ages must be made by the clini bushra. The MDRD study equat ion has not been valid ated for the evalu ation of serum creat inine relat ed to nutri imtiaz l statu s or medic ation usage . For perso ns <18 years of age, a pedia tric GFR calcu lator is avail able on the [facility] websi te: https ://ww w.kid jimmy.o rg/pr ofess ional s/kdo qi/gf r_cal culat or Not Available [facility] (Lab) [address] [place], [address], 06/15/2022 20:49:07 06/15/20 22 06/15/2022 COMPR EHENS ANISHA METAB OLIC PANEL alkaline phosphatase 114 U/L 38-126 Not Available [facility] (Lab) [address] [place], [address], 06/15/2022 20:49:07 06/15/20 22 06/15/2022 COMPR EHENS ANISHA METAB OLIC PANEL alanine aminotransfe rase 36 U/L 0-[address] [facility] (Lab) [address] [place], [address], 06/15/2022 20:49:07 06/15/20 22 06/15/2022 COMPR EHENS ANISHA METAB OLIC PANEL aspartate aminotransfe rase 39 U/L 15-[address] [facility] (Lab) [address] [place], [address], 06/15/2022 20:49:07 06/15/20 22 06/15/2022 COMPR EHENS ANISHA METAB OLIC PANEL bilirubin, total 1.20 mg/dL 0.20-1 .30 Not Available [facility] (Lab) [address] [place], [address], 06/15/2022 20:49:07 06/15/20 22 06/15/2022 COMPR EHENS ANISHA METAB OLIC PANEL calcium 9.6 mg/dL 8.4-10 .2 Not Available [facility] (Lab) [address] [place], [address], 06/15/2022 20:49:07 06/15/20 22 06/15/2022 COMPR EHENS ANISHA METAB OLIC PANEL total protein 8.2 g/dL 6.3-8. 2 Not Available [facility] (Lab) [address] [facility] [place], [address], 06/15/2022 20:49:07 06/15/20 22 06/15/2022 COMPR EHENS ANISHA METAB OLIC PANEL albumin 4.8 g/dL 3.4-5. 0 Not Available [facility] (Lab) [address] [place], [address], 06/15/2022 20:49:07 06/15/20 22 06/15/2022 COMPR EHENS ANISHA METAB OLIC PANEL globulin 3.4 g/dL 2.6-4. 2 Not Available [facility] (Lab) [address] [place], [address], 06/15/2022 20:49:07 06/15/20 22 06/15/2022 COMPR EHENS ANISHA METAB OLIC PANEL A/G ratio 1.4 ratio 1.0-2. 0 Not Available [facility] (Lab) [address] [place], [address], 06/15/2022 20:49:07 06/15/20 22 06/15/2022 LIPID PANEL cholesterol 238 mg/dL 140-19 9 high NIH ALEX NSUS RECOM MENDA TION FOR JIM STERO L: ADULT CHILD LOW RISK: <200 <170 BORDE RLINE : <200- 239 ----- HIGH RISK: >240 >200 Not Available [facility] (Lab) [address] [place], [address], 06/15/2022 20:49:02 06/15/20 22 06/15/2022 LIPID PANEL triglyceride s 109 mg/dL 0-150 NIH ALEX NSUS REPOR T RECOM MENDA TION FOR TRIGL YCERI VI: ADULT CHILD LOW RISK: <150 ----- BODER LINE: 150-1 99 ----- HIGH RISK: >200 ----- Not Available [facility] (Lab) [address] [place], [address], 06/15/2022 20:49:02 06/15/20 22 06/15/2022 LIPID PANEL HDL cholesterol 83 mg/dL 40- Not Available [facility] (Lab) [address] [place], [address], 06/15/2022 20:49:02 06/15/20 22 06/15/2022 LIPID PANEL LDL cholesterol, calculated 133 mg/dL 0-130 high NIH ALEX NSUS REPOR T RECOM MENDA TIONS FOR LDL: ADULT CHILD LOW RISK <130 <110 (OPTI MAL LDL) <100 ----- BORDE RLINE : 130-1 59 ----- HIGH RISK: >160 >130 A TRIGL YCERI DE RESUL T >400 INVAL IDATE S THE CALCU LATIO N FOR LDL FRACT IONAT ION - THE LDL RESUL T WILL NOT BE REPOR NANCY. Not Available [facility] (Lab) [address] [place], [address], 06/15/2022 20:49:02 06/15/20 22 06/15/2022 CBC/C OMPLE TE BLD COUNT W/DIF F white blood cells 7.8 x10'3 /uL 4.2-10 .8 Not Available [facility] (Lab) [address] [place], [address], 06/15/2022 19:52:59 06/15/20 22 06/15/2022 CBC/C OMPLE TE BLD COUNT W/DIF F red blood cells 5.19 x10'6 /uL 3.80-5 .20 Not Available [facility] (Lab) [address] [place], [address], 06/15/2022 19:52:59 06/15/20 22 06/15/2022 CBC/C OMPLE TE BLD COUNT W/DIF F hemoglobin 15.2 g/dL 12.0-1 5.6 Not Available [facility] (Lab) [address] [place], [address], 06/15/2022 19:52:59 06/15/20 22 06/15/2022 CBC/C OMPLE TE BLD COUNT W/DIF F hematocrit 45.4 % 35.7-4 5.7 Not Available [facility] (Lab) [address] [place], [address], 06/15/2022 19:52:59 06/15/20 22 06/15/2022 CBC/C OMPLE TE BLD COUNT W/DIF F mean red cell volume 87.5 fL 82.0-9 9.0 Not Available [facility] (Lab) [address] [place], [address], 06/15/2022 19:52:59 06/15/20 22 06/15/2022 CBC/C OMPLE TE BLD COUNT W/DIF F mean red cell hemoglobin 29.3 pg 27.0-3 3.0 Not Available [facility] (Lab) [address] [place], [address], 06/15/2022 19:52:59 06/15/20 22 06/15/2022 CBC/C OMPLE TE BLD COUNT W/DIF F mean RBC HGB concentratio n 33.5 g/dL 31.0-3 6.0 Not Available [facility] (Lab) [address] [place], [address], 06/15/2022 19:52:59 11/29/20 22 06/15/2022 CBC/C OMPLE TE BLD COUNT W/DIF F red cell distribution width 14.4 % 11.8-1 5.5 Not Available [facility] (Lab) [address] [place], [address], 06/15/2022 19:52:59 06/15/20 22 06/15/2022 CBC/C OMPLE TE BLD COUNT W/DIF F platelets 210 x10'3 /uL 150-40 0 Not Available [facility] (Lab) [address] [place], [address], 06/15/2022 19:52:59 06/15/20 22 06/15/2022 CBC/C OMPLE TE BLD COUNT W/DIF F mean platelet volume 12.5 fL 9.0-12 .4 high Not Available [facility] (Lab) [address] [place], [address], 06/15/2022 19:52:59 06/15/20 22 06/15/2022 CBC/C OMPLE TE BLD COUNT W/DIF F neutrophils 59.9 % 39.0-7 2.0 Not Available [facility] (Lab) [address] [place], [address], 06/15/2022 19:52:59 06/15/20 22 06/15/2022 CBC/C OMPLE TE BLD COUNT W/DIF F lymphocytes 31.5 % 16.0-4 7.0 Not Available [facility] (Lab) [address] [place], [address], 06/15/2022 19:52:59 06/15/20 22 06/15/2022 CBC/C OMPLE TE BLD COUNT W/DIF F monocytes 5.5 % 5.0-12 .0 Not Available [facility] (Lab) [address] [place], [address], 06/15/2022 19:52:59 06/15/20 22 06/15/2022 CBC/C OMPLE TE BLD COUNT W/DIF F eosinophils 2.1 % 1.0-7. 0 Not Available [facility] (Lab) [address] [place], [address], 06/15/2022 19:52:59 06/15/20 22 06/15/2022 CBC/C OMPLE TE BLD COUNT W/DIF F basophils 0.6 % 0.0-2. 0 Not Available [facility] (Lab) [address] [place], [address], 06/15/2022 19:52:59 06/15/20 22 06/15/2022 CBC/C OMPLE TE BLD COUNT W/DIF F immature granulocytes 0.4 % 0.00-0 .50 Not Available [facility] (Lab) [address] [place], [address], 06/15/2022 19:52:59 06/15/20 22 06/15/2022 CBC/C OMPLE TE BLD COUNT W/DIF F neutrophils, absolute count 4.65 x10'3 /uL 1.5-8. 0 Not Available [facility] (Lab) [address] [place], [address], 06/15/2022 19:52:59 06/15/20 22 06/15/2022 CBC/C OMPLE TE BLD COUNT W/DIF F lymphocytes, absolute count 2.45 x10'3 /uL 1.07-3 .43 Not Available [facility] (Lab) [address] [place], [address], 06/15/2022 19:52:59 06/15/20 22 06/15/2022 CBC/C OMPLE TE BLD COUNT W/DIF F monocytes, absolute count 0.43 x10'3 /uL 0.29-0 .99 Not Available [facility] (Lab) [address] [place], [address], 06/15/2022 19:52:59 06/15/20 22 06/15/2022 CBC/C OMPLE TE BLD COUNT W/DIF F eosinophils, absolute count 0.16 x10'3 /uL 0.02-0 .53 Not Available [facility] (Lab) [address] [place], [address], 06/15/2022 19:52:59 06/15/20 22 06/15/2022 CBC/C OMPLE TE BLD COUNT W/DIF F basophils, absolute count 0.05 x10'3 /uL 0.01-0 .08 Not Available [facility] (Lab) [address] [place], [address], 06/15/2022 19:52:59 06/15/20 22 06/15/2022 CBC/C OMPLE TE BLD COUNT W/DIF F immature granulocytes ,absolute 0.03 x10'3 /uL 0.00-0 .05 Not Available [facility] (Lab) [address] [place], [address], 06/15/2022 19:52:59 06/15/20 22 06/15/2022 CBC/C OMPLE TE BLD COUNT W/DIF F nucleated red blood cells 0.0 % -[address] [facility] (Lab) [address] [place], [address], 06/15/2022 19:52:59 06/15/20 22 06/15/2022 CBC/C OMPLE TE BLD COUNT W/DIF F NRBC# 0.00 x10'3 /uL Not Available [facility] (Lab) [address] [place], [address], 06/15/2022 19:52:59 Result Notes None recorded. Problems Name Problem SNOMED Code Status Onset Date Resolution Date Notes Provider Name and Address Organization Details Recorded Time Varicose veins of lower extremity 63226142 Active 2022 HOLLY Tan - [facility] 3 15:52:00 Sleep disorder 88282667 Active 2022 GEOVANNY Roland, [facility] 3 17:13:30 Bipolar disorder 42176196 Active 2016 Not Available [facility] 3 03:14:58 Blood glucose outside reference range 713013742 Active Not Available [facility] 3 03:14:58 Postoperative visit 583939185 Active 2020 Not Available [facility] 3 03:14:58 Equinus contracture of the ankle 148122595 Active 2020 Not Available [facility] 3 03:14:58 Postoperative pain 765560888 Active 2020 Not Available [facility] 3 03:14:58 Enthesopathy of foot region 954162740 Active 2020 Not Available [facility] 3 03:14:59 Adult type polycystic kidney disease type 2 554634277 Active 2019 Not Available [facility] 3 03:14:59 Edema 044307003 Active Not Available [facility] 3 03:14:59 Hypertriglyce ridemia 261799226 Active 2016 Not Available [facility] 3 03:14:59 Type 2 diabetes mellitus without complication 590669932 Active 2021 Not Available [facility] 3 03:14:59 Depressive disorder 11871662 Active Not Available [facility] 3 03:14:59 Sinusitis 91676749 Active Not Available [facility] 3 03:14:59 Dyslipidemia 039176782 Active 2021 Not Available [facility] 3 03:14:59 Posttraumatic stress disorder 08443638 Active 2016 Not Available [facility] 3 03:14:59 Upper respiratory infection 35096488 Active 2021 Not Available [facility] 3 03:14:59 Dysfunction of eustachian tube 49636578 Active Not Available [facility] 3 03:14:59 Insertional Achilles tendinopathy 386057444 Active 2020 Not Available [facility] 3 03:14:59 Diabetes mellitus 84953777 Active Not Available [facility] 3 03:14:59 Chronic rhinitis 47648866 Active 2020 Not Available [facility] 3 03:15:00 Problem Notes None recorded. Procedures Surgical History Date Name Laterality Status Provider Name and Address Organization Details Recorded Time 1 Foot Surgery completed Not Available [facility] 023 03:07:49 0 Colonoscopy completed Not Available [facility] 09/16/19 23 03:07:49 Imaging Results None recorded. Procedure Notes None recorded. Medical Equipment None Reported. Allergies Allergen ID Allergen Name Allergen Category Reaction Reaction Severity Criticality Documentation Date Start Date Code Code System Note Provider Name and Address Organization Details Recorded Time 5859 Substance with sulfonami de structure and antibacte rial mechanism of action (substanc e) medicatio n rash Not available Not available 09/15/2022 33565 8003 SNOMED Not Available [facility] 3 03:26:30 5860 niacin medicatio n flushing itching Not available Not available Not available 09/15/2022 7393 RxNorm Not Available [facility] 3 03:26:30 Medications Name Sig Start Date Stop Date Status Note LastModified by Organization Details LastModified Time quetiapin e 25 mg tablet TAKE 1 TABLET BY MOUTH EVERY DAY AT BEDTIME active Not Available Not Available No t Available amoxicill in 500 mg capsule Take 1 capsule every 8 hours by oral route for 10 days. active Not Available Not Available No t Available furosemid e 40 mg tablet TAKE 1 TABLET BY MOUTH DAILY active Not Available Not Available No t Available lamotrigi ne 150 mg tablet TK 1 T PO BID 12/02 completed Not Available Not Available Not Available metformin 500 mg tablet TAKE 2 TABLETS BY MOUTH TWICE DAILY 11/21 completed Not Available Not Available Not Available bupropion HCl SR 150 mg tablet,12 hr sustained -release TK 1 T PO QAM 09/11 completed Not Available Not Available Not Available prednison e 10 mg tablet take by mouth active Not Available Not Available No t Available lamotrigi ne 200 mg tablet TAKE 1 TABLET BY MOUTH TWICE DAILY DIRECTED active Not Available Not Available No t Available Klor-Con 10 mEq tablet,ex tended release 11/05 completed Not Available Not Available Not Available azithromy flaca 250 mg tablet TAKE 2 TABLETS BY MOUTH FOR 1 DAY THEN TAKE 1 TABLET BY MOUTH DAILY FOR 4 DAYS 11/10 completed Not Available Not Available Not Available ibuprofen 800 mg tablet TAKE 1 TABLET BY MOUTH THREE TIMES DAILY NEEDED 02/18 completed Not Available Not Available Not Available tizanidin e 4 mg tablet TAKE 1 TABLET BY MOUTH TWICE DAILY active Not Available Not Available No t Available doxepin 25 mg capsule 11/10 completed Not Available Not Available Not Available hydrocodo ne 5 mg-acetam inophen 325 mg tablet TAKE 1 TABLET BY MOUTH EVERY 6 HOURS NEEDED FOR PAIN active Not Available Not Available No t Available loxapine succinate 25 mg capsule TAKE 1 CAPSULE BY MOUTH EVERY DAY AT BEDTIME active Not Available Not Available No t Available prednison e 20 mg tablet TK 2 TS PO QD FOR 5 DAYS active Not Available Not Available No t Available clonazepa m 0.5 mg tablet TK 1 T PO QAM active Not Available Not Available No t Available sertralin e 100 mg tablet 07/31 completed Not Available Not Available Not Available Doc-Q-Lac e 100 mg capsule TK ONE C PO BID 07/31 completed Not Available Not Available Not Available clonazepa m 1 mg tablet TK 1 T PO QHS 09/11 completed Not Available Not Available Not Available clindamyc in HCl 150 mg capsule TAKE 1 CAPSULE BY MOUTH THREE TIMES DAILY active Not Available Not Available No t Available hydroxyzi ne pamoate 50 mg capsule TK 2 CS PO HS active Not Available Not Available No t Available metronida zole 500 mg tablet TK 1 T PO BID active Not Available Not Available No t Available hydroxyzi ne HCl 50 mg tablet TAKE 1 TABLET BY MOUTH EVERY DAY AT BEDTIME active Not Available Not Available No t Available acetamino phen 300 mg-codein e 30 mg tablet TAKE 1 TABLET BY MOUTH EVERY 8 HOURS NEEDED 10/30 completed Not Available Not Available Not Available prochlorp erazine maleate 10 mg tablet TK ONE T PO Q 6 H PRN 04/19 completed Not Available Not Available Not Available ciproflox acin 500 mg tablet 03/21 completed Not Available Not Available Not Available tramadol 50 mg tablet TK 1 T PO Q 8 H PRN active Not Available Not Available No t Available amoxicill in 500 mg tablet Take 1 tablet 3 times a day by oral route for 7 days. active Not Available Not Available No t Available ondansetr on 8 mg disintegr ating tablet DIS 1 T ON THE TONGUE Q 8 H PRN active Not Available Not Available No t Available lamotrigi ne 25 mg tablet TK 2 TS PO BID 12/02 completed Not Available Not Available Not Available terbinafi ne HCl 250 mg tablet TK 1 T PO QD 03/16 completed Not Available Not Available Not Available trazodone 100 mg tablet TAKE 1 TABLET BY MOUTH QHS 10/19 completed Not Available Not Available Not Available dicyclomi ne 20 mg tablet TK ONE T PO Q 6 H PRN FOR ABDOMINA L CRAMPS 06/29 completed Not Available Not Available Not Available meclizine 25 mg tablet TK 1 T PO Q 8 H PRN active Not Available Not Available No t Available loxapine 25 mg/mL oral concentra te Take by oral route. active Not Available Not Available No t Available hydrochlo rothiazid e 12.5 mg capsule 11/05 completed Not Available Not Available Not Available loxapine succinate 10 mg capsule TAKE 1 CAPSULE BY MOUTH EVERY DAY AT BEDTIME active Not Available Not Available No t Available diclofena c sodium 75 mg tablet,de layed release Take 1 tablet twice a day by oral route with meals for 30 days. active Not Available Not Available No t Available etodolac 400 mg tablet Take 1 tablet twice a day by oral route. active Not Available Not Available No t Available monteluka st 10 mg tablet TAKE 1 TABLET BY MOUTH EVERY DAY active Not Available Not Available No t Available levofloxa flaca 500 mg tablet 11/05 completed Not Available Not Available Not Available methylpre dnisolone 4 mg tablets in a dose pack FPD 02/04 completed Not Available Not Available Not Available Percocet 5 mg-325 mg tablet TAKE 1 TABLET BY MOUTH EVERY 6 HOURS NEEDED FOR PAIN active rx was approved Not Available Not Available Not Available hydroxyzi ne HCl 10 mg tablet TAKE 1 TABLET BY MOUTH THREE TIMES DAILY NEEDED active Not Available Not Available No t Available ondansetr on 4 mg disintegr ating tablet DISSOLVE 1 TABLET ON TONGUE Q 4-6 H PRN 10/19 completed Not Available Not Available Not Available cefdinir 300 mg capsule TAKE 1 CAPSULE BY MOUTH TWICE DAILY FOR 7 DAYS active Not Available Not Available No t Available fluticaso ne propionat e 50 mcg/actua tion nasal spray,[place] pension active Not Available Not Available Not Available metformin ER 500 mg tablet,ex tended release 24 hr TAKE 1 TABLET BY MOUTH EVERY DAY AT BEDTIME active Not Available Not Available No t Available dicyclomi ne 10 mg capsule TK ONE C PO TID PRN active Not Available Not Available No t Available lamotrigi ne 100 mg tablet 07/29 completed Not Available Not Available Not Available amoxicill in 875 mg-potass ium clavulana te 125 mg tablet TK 1 T PO Q 12 H FOR 10 DAYS active Not Available Not Available No t Available Ventolin HFA 90 mcg/actua tion aerosol inhaler 11/26 completed Not Available Not Available Not Available bupropion HCl SR 200 mg tablet,12 hr sustained -release TAKE 1 TABLET BY MOUTH EVERY DAY IN THE MORNING active Not Available Not Available No t Available escitalop young 10 mg tablet TK 1 T PO QD 12/02 completed Not Available Not Available Not Available aripipraz ole 10 mg tablet TK 1 T PO D 04/19 completed Not Available Not Available Not Available bupropion HCl XL 300 mg 24 hr tablet, extended release TK 1 T PO QD 11/10 completed Not Available Not Available Not Available bupropion HCl XL 150 mg 24 hr tablet, extended release TK 1 T PO QD active Not Available Not Available No t Available Elderberr y 200 mg capsule Take by oral route. 10/12 completed Not Available Not Available Not Available nitrofura ntoin monohydra te/macroc rystals 100 mg capsule 11/21 completed Not Available Not Available Not Available zinc 10/12 completed Not Available Not Available Not Available Vitamin D3 10/12 completed Not Available Not Available Not Available Zyrtec qd 03/25 completed pt stopped on her own Not Available Not Available Not Available azelastin e 205.5 mcg (0.15 %) nasal spray [place] 2 sprays twice a day by intranas al route. 07/14 completed Not Available Not Available Not Available B12 2017 active Not Available Not Available Not Avai lable Suprep Bowel Prep Kit 17.5 gram-3.13 gram-1.6 gram oral solution TK PO UTD 11/21 completed Not Available Not Available Not Available quercetin dihydrate (bulk) 10/12 completed Not Available Not Available Not Available TRUEplus Lancets 33 gauge TEST BLOOD GLUCOSE TWICE DAILY active Not Available Not Available No t Available Super Thin Lancets 28 gauge USE DIRECTED 10/30 completed Not Available Not Available Not Available True Metrix Glucose Test Strip USE TO TEST TWICE DAILY active Not Available Not Available No t Available True Metrix Air Glucose Meter active Not Available Not Available Not Available Intrarosa 6.5 mg vaginal insert 07/19 completed Not Available Not Available Not Available Ozempic 0.25 mg or 0.5 mg (2 mg/1.5 mL) subcutane ous pen injector inject 0.25mg under the skin weekly for 4wks then 0.5mg weekly active Not Available Not Available No t Available turmeric 400 mg capsule Take by oral route. 10/12 completed Not Available Not Available Not Available Caplyta 42 mg capsule TAKE 1 CAPSULE BY MOUTH EVERY DAY IN THE MORNING active Not Available Not Available No t Available Ozempic 1 mg/dose (4 mg/3 mL) subcutane ous pen injector Inject 1 mg every week by subcutan eous route. active Not Available Not Available No t Available Vitals Date Recorded Body height Body mass index (BMI) Body weight Body temperature Heart rate Systolic blood pressure Diastolic blood pressure Provider Name and Address Organization Details Last Updated DateTime 3 172.72 cm 36.2 kg/m2 753651. 98 g 98 [degF] 82 /min 130 mm[Hg] 76 mm[Hg] GEOVANNY Buckley [place] [employer] [facility] 3 15:03:35 Date Recorded Body mass index (BMI) Body height Heart rate Body temperature Body weight Systolic blood pressure Diastolic blood pressure Provider Name and Address Organization Details Last Updated DateTime 2 32.8 kg/m2 172.72 cm 66 /min 96.4 [degF] 50603.9 5 g 120 mm[Hg] 80 mm[Hg] Not Available [facility] 3 03:10:49 Date Recorded Body mass index (BMI) Body height Heart rate Body temperature Body weight Systolic blood pressure Diastolic blood pressure Provider Name and Address Organization Details Last Updated DateTime 2 31 kg/m2 172.72 cm 76 /min 97.1 [degF] 78021.8 4 g 120 mm[Hg] 80 mm[Hg] Not Available [facility] 3 03:10:49 Date Recorded Body mass index (BMI) Body height Heart rate Body temperature Body weight Systolic blood pressure Diastolic blood pressure Provider Name and Address Organization Details Last Updated DateTime 2 30.7 kg/m2 172.72 cm 70 /min 97.6 [degF] 52030.6 6 g 110 mm[Hg] 77 mm[Hg] Not Available [facility] 3 03:10:50 Date Recorded Body mass index (BMI) Body height Heart rate Body temperature Body weight Systolic blood pressure Diastolic blood pressure Provider Name and Address Organization Details Last Updated DateTime 2 32.5 kg/m2 172.72 cm 78 /min 97.7 [degF] 07911.7 7 g 122 mm[Hg] 68 mm[Hg] Not Available [facility] 3 03:10:50 Social History Question Answer Notes LastModified by Organization Details LastModified Time Tobacco Smoking Status Never Smoker HOLLY Tan [place] [employer] [facility] 10/12/2022 14:47:59 Do You Have An Advance Directive? No [id number] Information not available 09/15/2022 What Is Your Level Of Alcohol Consumption? None MIGRATION.0301 [id number] Information not available 09/15/2022 Do You Wear A Helmet When Biking? No Does Not Bike Information not available 10/12/2022 What Is Your Level Of Caffeine Consumption? None MIGRATION.0301 [id number] Information not available 09/15/2022 How Much Tobacco Do You Chew? None MIGRATION.0301 [id number] Information not available 09/15/2022 In The 14 Days Before Symptom Onset, Have You Had Close Contact With A Laboratory-confi rmed COVID-19 While That Case Was Ill? No Information not available 10/12/2022 In The 14 Days Before Symptom Onset, Have You Had Close Contact With A Person Who Is Under Investigation For COVID-19 While That Person Was Ill? No Information not available 10/12/2022 What Type Of Diet Are You Following? DIABETIC MIGRATION.0301 [id number] Information not available 09/15/2022 Which Illicit Or Recreational Drugs Have You Used? None Information not available 10/12/2022 Do You Or Have You Ever Used E-cigarettes Or Vape? Never Used Electronic Cigarettes Information not available 10/12/2022 What Is The Highest Grade Or Level Of School You Have Completed Or The Highest Degree You Have Received? 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 6 Information not available 10/12/2022 On Those Days That You Engage In Moderate To Strenuous Exercise, How Many Minutes, On Average, Do You Exercise? 120 Information not available 10/12/2022 Have There Been Any Changes To Your Family Or Social Situation? No Information not available 10/12/2022 What Is The Fluoride Status Of Your Home? Unknown Information not available 10/12/2022 Are There Any Guns Present In Your Home? No Information not available 10/12/2022 Do You Use Insect Repellent Routinely? No Information not available 10/12/2022 Where Do You Live? SingleLevelHouse Information not available 10/12/2022 Do You Have A Medical Power Of Buggyman? No Information not available 10/12/2022 What Was The Date Of Your Most Recent Tobacco Screening? 10/12/2022 [email or web address] Information not available 10/12/2022 Do You Have Any Pets? Yes Information not available 10/12/2022 What Is Your Relationship Status? MIGRATION.0301 [id number] Information not available 09/15/2022 Do You Use Your Seat Belt Or Car Seat Routinely? Yes Information not available 10/12/2022 Do You Have Smoke And Carbon Monoxide Detectors In Your Home? Yes Information not available 10/12/2022 Are You Passively Exposed To Smoke? No Information not available 10/12/2022 Do You Or Have You Ever Used Smokeless Tobacco? Never Used Smokeless Tobacco MIGRATION.0301 [id number] Information not available 09/15/2022 Are There Any Smokers In Your House? No Information not available 10/12/2022 How Much Tobacco Do You Smoke? No MIGRATION.0301 [id number] Information not available 09/15/2022 What Types Of Sporting Activities Do You Participate In? None Information not available 10/12/2022 Do You Feel Stressed (tense, Restless, Nervous, Or Anxious, Or Unable To Sleep At Night)? [id number] Information not available 10/12/2022 Do You Use Any Illicit Or Recreational Drugs? No Information not available 10/12/2022 Do You Use Sunscreen Routinely? Yes Information not available 10/12/2022 Has Tobacco Cessation Counseling Been Provided? No Not Needed-n ever Smoked Information not available 10/12/2022 How Many Years Have You Smoked Tobacco? 0 Information not available 10/12/2022 Have You Recently Traveled Abroad? No Information not available 10/12/2022 Do You Have Any Dietary Restrictions? No Information not available 10/12/2022 Do You Or Have You Ever Used Any Other Forms Of Tobacco Or Nicotine? No Information not available 10/12/2022 Sex: Female Functional Status Question Answer Note LastModified by Organizat ion Details LastModified Time What is your exercise level? Occasional [id number] Information not available 09/15/2022 Mental Status None recorded. Family History Relationship Description Onset Age of this Age Resolved Age Notes LastModified by Organization Details LastModified Time Father Adult type polycystic kidney disease type 2 MIGRATION.216 [id number] Not available 09/15/2022 03:07:52 Brother Alcoholism MIGRATION.529 [id number] Not available 09/15/2022 03:07:53 Brother Multiple congenital cysts of kidney MIGRATION.583 [id number] Not available 09/15/2022 03:07:53 Sister Multiple congenital cysts of kidney MIGRATION.705 [id number] Not available 09/15/2022 03:07:53 Sister Multiple congenital cysts of kidney MIGRATION.924 [id number] Not available 09/15/2022 03:07:53 Sister Multiple congenital cysts of kidney MIGRATION.311 [id number] Not available 09/15/2022 03:07:53 Daughter Malignant tumor of thyroid gland MIGRATION.885 [id number] Not available 09/15/2022 03:07:53 Medical History Condition Response NERVE DISEASE N BLINDNESS N RHEUMATIC FEVER N KIDNEY STONES N BLADDER PROBLEMS N MRSA N OTHER # 1 Y POLIO N LUNG DISEASE/DISORDER N COPD N RADIATION / CHEMOTHERAPY N Other # 2 N BLOOD DISEASES N SURGERY N EAR OR HEARING PROBLEMS N MUMPS N DEPRESSION (INCLUDING POST ) Y BOWEL PROBLEMS N STROKE/TIA N ULCERS N BENIGN PROSTATIC HYPERPLASIA N MEASLES N MYOCARDIAL INFARCTION N OBESITY N GERD/NAUSEA N ANEURYSM N URINARY/BLADDER/KIDNEY PROBLEMS N CORONARY ARTERY DISEASE (CAD) N ADDICTION CONCERNS N Impotence N ENDOMETRIOSIS N USE OF BLOOD THINNERS N SKIN PROBLEMS N GASTROINTESTINAL DISORDER N PERIPHERAL VASCULAR DISEASE N MUSCLE,JOINT OR BONE PROBLEMS N GASTROINTESTINAL BLEEDING N BLOOD CLOTS N ASTHMA N CATARACTS N ERECTILE DYSFUNCTION N VARICOSITIES N GI PROBLEMS N Low Testosterone N INFERTILITY N AIDS/HIV N CHEMOTHERAPY / RADIATION N LIVER DISEASE N MALE HYPOGONADISM N HYPERTENSION Y Deficiency N ANXIETY DISORDER Y BLOOD TRANSFUSION N ANEMIA/BLOOD DISORDER N CHRONIC EAR INFECTIONS N BRONCHITIS N TUBERCULOSIS N GLAUCOMA N FOOT PROBLEM N DIVERTICULITIS N SLEEP APNEA N CHICKENPOX N INFECTIOUS DISEASE N PROSTATE N HEART ARRHYTHMIA N INSOMNIA N HIGH CHOLESTEROL / HYPERLIPIDEMIA Y EYE PROBLEMS N HYPERTHYROIDISM N NEUROLOGICAL PROBLEMS N EDEMA N CHRONIC PAIN SYNDROME N HYPOTHYROIDISM N CAROTID BLOCKAGE N CONSTIPATION N BACK / NECK PROBLEMS N HAVE YOU BEEN [facility]ITAL[facility] THE PAST [facility] ? N ATHEROSCLEROSIS N BREAST PROBLEMS N DIALYSIS N ECZEMA N OSTEOPOROSIS N ARTHRITIS N NO SIGNIFICANT PAST MEDICAL HISTORY N APPENDICITIS N DIABETES, TYPE Y BAD TEETH N ENT N HEARTBURN / REFLUX N AUTISM SPECTRUM DISORDER (ASD) N HEPATITIS / LIVER DISEASE N GOUT N SLEEP DISORDER Y ALZHEIMER'S DISEASE N Brain Problems N DEMENTIA N HERPES N SEIZURES/EPILEPSY N HEADACHES/MIGRAINES N VASCULAR DISEASE N PACEMAKER N Blood Disorder N DIZZINESS N HEART DISEASE/HEART PROBLEMS N KIDNEY DISEASE Y MULTIPLE SCLEROSIS N CANCER: SPECIFY N CARDIAC ARRHYTHMIA N ATRIAL FIBRILLATION N Gall Stones N PULMONARY EMBOLISM N AUTOIMMUNE DISEASE N Gynecological HistoryNo gynecological history recorded. Obstetrics History GPAL:G 0 P 0 0 0 0 Past Encounters Encounter ID Performer Location Encounter Start Date Encounter Closed Date Diagnosis/Indication Diagnosis SNOMED-CT Code Diagnosis ICD10 Code [id number] [facility] [place] [address] [place] [address] 10/02/2020 00:00:00 10/06/2020 13:47:25 [id number] [facility] [place] [address] [place] [address] 10/20/2020 00:00:00 10/20/2020 20:04:31 [id number] [facility] [place] [address] [facility] y , [place] [address] 10/30/2020 00:00:00 10/30/2020 22:50:17 [id number] [facility] [place] [address] [facility] [address] [place] [address] 12/08/2020 00:00:00 12/09/2020 08:50:09 [id number] [facility] [place] [address] [place] [address] y , [place] [address] 03/05/2021 00:00:00 03/08/2021 21:17:45 [id number] [facility] [address], [address] [address] 04/17/2021 00:00:00 04/18/2021 12:35:14 [id number] [facility] [place] [address] [place] [address] 07/14/2021 00:00:00 07/14/2021 22:57:32 [id number] [facility] [place] [address] [place] [address] 11/10/2021 00:00:00 11/16/2021 23:38:40 [id number] [facility] [place] [address] [place] [address] 12/08/2021 00:00:00 12/08/2021 21:36:09 [id number] [facility] l[place] [address] [place] [address] y , [place] [address] 01/05/2022 00:00:00 01/05/2022 21:12:24 [id number] [facility] [place] diane [address] [place] [address] y , [place] [address] 02/18/2022 00:00:00 03/14/2022 16:43:12 [id number] [facility] [place] lltoby [address] [place] [address] y , [place] [address] 06/15/2022 00:00:00 07/07/2022 12:08:43 [id number] Christian George MD [facility] Internal [facility] Renu diane [address] [place] [address] y , [place] [address] 10/12/2022 14:47:21 10/12/2022 15:55:00 Dyslipidemia 651273210 E78.5 Chronic rhinitis 2925022 6 J31.0 Type 2 andres betes mellitus without complication 105401265 E11.9 Varicose v eins of lower extremity 22362774 I83.93 Health Concerns Section Related Observation LastModified by Organization Detai ls LastModified Time None Recorded Concern Status LastModified by Organization Details LastModified Time None Recorded Advance Directives Directive N: Payers Encounter Date Sequence Insurance Name Policy Number Policy Meier Covered Member ID Meier Member ID Guarantor Name 10/12/2022 1 [employer] - [employer] - OPEN ACCESS PLUS (PPO) [id number] Vangie Yuen [id number] Vangie Yuen Notes Date Note Type Note Provider Name and Address Organization Details Recorded Time 10/12/2022 text/html Some snoring perhapsVaricose veins bother herTrouble with her diabetes trying to watch diet Christian George MD [address] [place] [address], [place] [address], [place], [address], [facility] [employer] 10/12/2022 22:56:01 OBGyn Episode No OBEpisode recorded.
--- OUTSIDE RECORDS SUMMARY | 2024-07-17 03:57 | XMS_ITS | Encounter Summary ---
Author Organization [facility] Address [address] [place] [address] Care Team Providers Care Auditor/Quality Name Role Phone HuseyinMarleni martinez Primary Care Provider [phone] Reason for Visit * Reason Comments Abdominal Pain * Authorization/Certification (Routine) Specialty Diagnoses / Procedures Referred By Contac t Referred To Contact Diagnoses Abdominal pain, right upper quadrant Hepatic cyst Polycystic kidney disease Referral ID Status Reason Start Date Expiration Date Visits Re quested Visits Authorized [id number] 1 1 Encounter Details Date Type Department Care Team (Late st Contact Info) Description 01/09/2024 8:03 AM CDT - 01/11/2024 11:33 AM CDT Emergency [facility] 3rd floor Observation Unit [address] [place], [place] [id number] Sabine Jerry DO [address] [place] [address] Tariq Khan MD [address] [place] [address] Darcie Saunders MD [address] [place], [place] [id number] Clarisse Campoverde, Lili Mauricio RN Hulce, June M, RN Dumoulin, Haylie H, [facility] Asia Berry, [facility] Kassandra Tabares RN Corey, Madison [facility] Lauren Hendricks, LEGAL WRITING PROFESSOR [address] [place] [address] Jada Clifford, FOOD HANDLER Treasure Frederick, RESEARCH PROGRAMMER Yuli Tong, Renita Franklin, SCENE PAINTER Rolf Newell, Evangelina Payton, Yossi Nagel, Darcie [...] has e electric, gas, oil, or water [employer] threatened to shut off services in your home? No 01/09/2024 PHQ-2 Answer Date Recorded Initial depression screening score: 0 01/09/2024 Social Connections Answer Date Recorded How often do you see or talk to people that you care about and feel close to? (For example: talking to friends on the phone, visiting friends or family, going to jewish or club meetings) 5 or more times [...] included. Discharge Summary Patient ID: Vangie Yuen [id number] 53 year old 1970 Admit date: 01/09/2024 [...] the patient and/or their appropriatedurable power of trust and estates attorney. The risks, benefits, and alternatives were discussed in detail and understanding was voiced. The opportunity to ask questions was given and all questions were answered. At the conclusion of the discussion the patient and/or DPOA provided informed consent and elected to proceed. TECHNIQUE: The patient was brought to the ultrasound suite. Preliminary municipal engineer ultrasound images were acquired and a puncture [...] size, and/or the use of the iterative constructiontechnique. FINDINGS: The partially visualized lung bases are clear. There is a new and thin crescent ic high density fluid collection around the lateral aspect of the liver, presumably a subcapsular hematoma. The hematoma is thin, measuring about 1.0 cm in thickness, but wraps around the lateral aspect of the right hepatic lobe for a distance of approximately 18 cm. The dominant right hepatic lobeliver cyst which was accessed is reduced in [...] Your Medications These medications were sent to [id number] - [facility] [address] [facility] [address] [facility] [id number] ketorolac 10 MG tablet traMADol 50 MG tablet You are receiving a paper prescription for the following medications, you can take these to any pharmacy. You don't need a prescription for these medications acetaminophen 500 MG tablet Disposition: patient is being discharged to Home Follow-up with: Marleni Jung [address] [address] Follow up in 1 week(s) [...] recent creatinine currently available. Pt lives in [facility] where she gets her [...] will look into completing a Power of E/M Engineer for Healthcare Document per [place] regulations at home. Please provide a copy of your Power of E/M Engineer for Healthcare Document to your physician at your scheduled follow up visit so a copy can be placed on file. A copy of your Power of E/M Engineer Document can also be mailed to the following address to be placed on file: [facility] Attn: Medical Records [address] [place] [address] Want to Say ???Thank You?? to a Nurse? The EDDIE Award?? was created in memory of Medhat Alejandro by his family to say thank you to nurses who provide an outstanding level of care. Submit a nomination using any method below. OR [email or web address] Or visit the Resource section on your Compario denise * Attachments The following attachments cannot be sent through Care Everywhere. * Tramadol Oral Tablet (Greenlandic) * Ketorolac Oral Tablet (Greenlandic) documented in this encounter Medications at Time [...] Home or Self Care [facility]) documented in this encounter Progress Notes * Darcie Saunders MD - 01/10/2024 1:34 PM CDT [facility] MEDICINE PROGRESS NOTE Patient: Vangie Yuen Today's Date: 01/10/2024 Date: 1970 Admission Date: 01/09/2024 8:03 AM Inpatient LOS: 0 day(s) Room: [facility] Hospital Day: Hospital Day: 2 History and [...] 01/09/2024 10:06 AM Created on Workstation ID: [id number] Signed on Workstation ID: [id number] US ASPIRATION ABSCESS HEMATOMA CYST Impression IMPRESSION: Successful ultrasound-guided aspiration. Electronically Signed by: Castillo Llanos MD Signed on: 01/09/2024 4:01 PM Created on Workstation ID: [id number] Signed on Workstation ID: [id number] CT ABDOMEN PELVIS WO CONTRAST Impression IMPRESSION: [...] 01/09/2024 3:38 PM Created on Workstation ID: [id number] Signed on Workstation ID: [id number] Assessment and Plan Reviewed with team members [...] recent creatinine currently available. Pt lives in [facility] where she gets her [...] Lauren Hendricks NP Hospitalist 01/10/2024 1:34 PM [employer] [phone] (Contact by secure chat) HOSPITALIST PROGRESS NOTE: Patient: Vangie Yuen Date: 01/10/2024 female, 53 year old Admit Date: 01/09/2024 Attending: Darcie Saunders MD Subjective: Vangie Yeun is a 53 year old female who [...] ??F (36.8 ??C) 97.5 ??F (36.4 ??C) (01/10/24 161) Pulse Pulse Min: 78 Max: 97 87 (01/10/24 161) Respiratory Resp Min: 15 Max: 18 16 (01/10/24 161) Non-Invasive Blood Pressure BP Min: 116/76 Max: [...] recent creatinine currently available. Pt lives in [facility] where she gets her [...] recent creatinine currently available. Pt lives in [facility] where she gets her [...] patient who is here with abdominal pain. [place] to be related to her PCKD and [...] Abnormality Status --------- ------ CBC with Automated Dif...[[id number]] Final result Please view results for these [...] Abnormality Status --------- ------ CBC with Automated Dif...[[id number]] Final result Please view results for these tests on the individual orders. CBC WITH AUTOMATED DIFFERENTIAL (PERFORMABLE ONLY) CBC WITH DIFFERENTIAL Narrative: The following orders were created for panel order CBC with Automated Differential. Procedure Abnormality Status --------- ------ CBC with Automated Dif...[[id number]] Please view results for these tests on [...] Percent 73 % Lymphocytes, Percent 19 % Holmes, Percent 5 % Eosinophils, Percent 2 % [...] Range HGB 13.2 12.0 - 15.5 g/dL [place] Top Tube Result Value Ref Range Extra [...] Percent 70 % Lymphocytes, Percent 20 % Holmes, Percent 6 % Eosinophils, Percent 3 % [...] Percent 67 % Lymphocytes, Percent 22 % Holmes, Percent 6 % Eosinophils, Percent 3 % [...] 01/09/2024 4:01 PM Created on Workstation ID: [id number] Signed on Workstation ID: [id number] Narrative: EXAM: US ASPIRATION ABSCESS HEMATOMA CYST CLINICAL HISTORY: LIVER CYST COMPARISON: CT abdomen and pelvis January 09, 2024 CONSENT: Informed consent was obtained from the patient and/or their appropriate durable power of trust and estates attorney. The risks, benefits, and alternatives were discussed in detail and understanding was voiced. The opportunity to ask questions was given and all questions were answered. At the conclusion of the discussion the patient and/or DPOA provided informed consent and elected to proceed. TECHNIQUE: The patient was brought to the ultrasound suite. Preliminary municipal engineer ultrasound images were acquired and a puncture [...] 01/09/2024 10:06 AM Created on Workstation ID: [id number] Signed on Workstation ID: [id number] Narrative: EXAM: CT ABDOMEN PELVIS W CONTRAST [...] TueJan 09, [address] Llanos, IR. [NS] [address] Tinsley GI. [NS] ED Course User Index [NS] Jesse [...] Telemetry Bed?: Yes Admitting Physician: DARCIE SAUNDERS [[id number]] Is this a telephone or verbal order?: This is a telephone order from the admitting physician This chart was documented by Jesse Tavares, acting as a scribe for Sabine Jerry DO. 01/09/2024, 8:23 AM. The documentation recorded by the scribe accurately and completely reflects the service(s) I personally performed and the decisions made by me. Sabine Jerry DO 01/12/24 0802 * Clarisse Camopverde RN - 01/09/2024 8:06 AM CDT Patient [...] Patient does not have a Power of E/M Engineer for Healthcare. Patient???s Primary Care Provider is Marleni Jung. Progress Note Pt was discussed with team during OFT meeting. CM met with Pt to introduce self and discuss role indc planning. Pt lives at home with spouse in [place]. Pt was completely independent prior to admission. She does not use any DME and was not receiving any services prior to admission. Pt is currently in [facility] visiting her daughter. Pt is planning for spouse to pick her up from the hospital when medically stable to [place] and then returning home directly to [place] from hospital; if she is not feeling up to the travel, she will stay with her daughter temporarily until she is feeling better. Pt does not have a -POA document. CM provided education on the importance of creating a document.Pt will look into completing an [place] HC-POA once she returns home. CM encouraged [...] - 99 mg/dL 01/11/2024 6:37 AM CDT [facility] Blood CAPILLARY BLOOD SPECIMEN / Unknown 01/11/2024 6:37 AM CDT 01/11/2024 6:40 AM CDT Darcie Saunders MD BKR LAB PT OF CARE [facility] [address] [place] [address] * CBC with Automated Differential (performable only) (01/11/2024 6:07 AM CDT) [facility] WBC 7.8 4.2 - 11.0 K/mcL 01/11/2024 6:12 AM CDT [facility] RBC 4.20 4.00 - 5.20 mil/mcL 01/11/2024 6:12 AM CDT [facility] HGB 12.0 12.0 - 15.5 g/dL 01/11/2024 6:12 AM CDT [facility] HCT 36.3 36.0 - 46.5 % 01/11/2024 6:12 AM CDT [facility] MCV 86.4 78.0 - 100.0 fl 01/11/2024 6:12 AM CDT [facility] MCH 28.6 26.0 - 34.0 pg 01/11/2024 6:12 AM CDT [facility] MCHC 33.1 32.0 - 36.5 g/dL 01/11/2024 6:12 AM CDT [facility] RDW-CV 14.8 11.0 - 15.0 % 01/11/2024 6:12 AM CDT [facility] RDW-SD 46.4 39.0 - 50.0 fL 01/11/2024 6:12 AM CDT [facility] PLT 189 140 - 450 K/mcL 01/11/2024 6:12 AM CDT [facility] NRBC 0 <=0 /100 WBC 01/11/2024 6:12 AM CDT [facility] Neutrophil, Percent 67 % 01/11/2024 6:12 AM CDT [facility] Lymphocytes, Percent 22 % 01/11/2024 6:12 AM CDT [facility] Holmes, Percent 6 % 01/11/2024 6:12 AM CDT [facility] Eosinophils, Percent 3 % 01/11/2024 6:12 AM CDT [facility] Basophils, Percent 1 % 01/11/2024 6:12 AM CDT [facility] Immature Granulocytes 1 % 01/11/2024 6:12 AM CDT [facility] Absolute Neutrophils 5.3 1.8 - 7.7 K/[facility] 01/11/2024 6:12 AM CDT [facility] Absolute Lymphocytes 1.7 1.0 - 4.0 K/[facility] 01/11/2024 6:12 AM CDT [facility] Absolute Monocytes 0.5 0.3 - 0.9 K/[facility] 01/11/2024 6:12 AM CDT [facility] Absolute Eosinophils 0.2 0.0 - 0.5 K/[facility] 01/11/2024 6:12 AM CDT [facility] Absolute Basophils 0.1 0.0 - 0.3 K/[facility] 01/11/2024 6:12 AM CDT [facility] Absolute Immature Granulocytes 0.0 0.0 - 0.2 K/[facility] 01/11/2024 6:12 AM CDT [facility] Blood VENOUS BLOOD SPECIMEN / Unknown Venipuncture / Unknown 01/11/2024 6:07 AM CDT 01/11/2024 6:09 AM CDT Narrative [facility] - 01/11/2024 6:12 AM CDT This is an appended report. ??These results have been appended to a previously verified report. Darcie Saunders MD BKR LAB BLOOD ORDERA BLES [facility] [address] [place] [address] * (ABNORMAL) Basic Metabolic Panel (01/11/2024 6:07 AM CDT) Fasting Status 01/11/2024 6:50 AM CDT [facility] Sodium 138 135 - 145 mmol/L 01/11/2024 6:50 AM CDT [facility] Potassium 4.1 3.4 - 5.1 mmol/L 01/11/2024 6:50 AM CDT [facility] Chloride 108 97 - 110 mmol/L 01/11/2024 6:50 AM CDT [facility] Carbon Dioxide 27 21 - 32 mmol/L 01/11/2024 6:50 AM T [facility] Anion Gap 7 7 - 19 mmol/L 01/11/2024 6:50 AM CDT [facility] Glucose 144(H) 70 - 99 mg/dL 01/11/2024 6:50 AM CDT [facility] BUN 18 6 - 20 mg/dL 01/11/2024 6:50 AM CDT [facility] Creatinine 1.18(H) 0.51 - 0.95 mg/dL 01/11/2024 6:50 AM CDT [facility] Glomerular Filtration Rate 55(L) >=60 01/11/2024 6:50 AM CDT [facility] Comment:eGFR 30-59 mL/min/1. 73m2 = Moderate decrease in kidney function. Stage 3 CKD (chronic kidney disease) or moderate kidney disease. Estimated GFR calculated using the CKD-EPI-R (2020) equation that does not include race in the creatinine calculation. BUN/Cr 15 7 - 25 01/11/2024 6:50 AM CDT [facility] Calcium 9.3 8.4 - 10.2 mg/dL 01/11/2024 6:50 AM CDT [facility] Blood VENOUS BLOOD SPECIMEN / Unknown Venipuncture / Unknown 01/11/2024 6:07 AM CDT 01/11/2024 6:09 AM CDT Darcie Saunders MD [place] [address] * (ABNORMAL) GLUCOSE, BEDSIDE - POINT OF CARE (01/10/2024 8:45 PM CDT) GLUCOSE, BEDSIDE - POINT OF CARE 155(H) 70 - 99 mg/dL 01/10/2024 8:45 PM CDT [facility] Blood CAPILLARY BLOOD SPECIMEN / Unknown 01/10/2024 8:45 PM CDT 01/10/2024 8:47 PM CDT Darcie Saunders MD BKR LAB [place] [address] * (ABNORMAL) GLUCOSE, BEDSIDE - POINT OF CARE (01/10/2024 4:18 PM CDT) GLUCOSE, BEDSIDE - POINT OF CARE 145(H) 70 - 99 mg/dL 01/10/2024 4:18 PM CDT [facility] Blood CAPILLARY BLOOD SPECIMEN / Unknown 01/10/2024 4:18 PM CDT 01/10/2024 4:21 PM CDT Darcie Saunders MD BKR LAB PT OF CARE [place] [address] * Hemoglobin (01/10/2024 4:02 PM CDT) HGB 12.5 12.0 - 15.5 g/dL 01/10/2024 4:12 PM CDT [facility] Blood VENOUS BLOOD SPECIMEN / Unknown Venipuncture / Unknown 01/10/2024 4:02 PM CDT 01/10/2024 4:10 PM CDT Darcie Saunders MD BKR LAB BLOOD ORDERA BLES [address] [address] * Hemoglobin (01/10/2024 12:02 PM CDT) HGB 12.3 12.0 - 15.5 g/dL 01/10/2024 12:07 PM CDT [facility] Blood VENOUS BLOOD SPECIMEN / Unknown Venipuncture / Unknown 01/10/2024 12:02 PM CDT 01/10/2024 12:04 PM CDT Darcie Saunders MD BKR LAB BLOOD ORDERA BLES [address] [address] * (ABNORMAL) GLUCOSE, BEDSIDE - POINT OF CARE (01/10/2024 11:32 AM CDT) GLUCOSE, BEDSIDE - POINT OF CARE 144(H) 70 - 99 mg/dL 01/10/2024 11:32 AM CDT [facility] Blood CAPILLARY BLOOD SPECIMEN / Unknown 01/10/2024 11:32 AM CDT 01/10/2024 11:41 AM CDT Darcie Saunders MD BKR LAB PT OF CARE [facility] [place] [id number] * (ABNORMAL) GLUCOSE, BEDSIDE - POINT OF CARE (01/10/2024 10:35 AM CDT) GLUCOSE, BEDSIDE - POINT OF CARE 132(H) 70 - 99 mg/dL 01/10/2024 10:35 AM CDT [facility] Blood CAPILLARY BLOOD SPECIMEN / Unknown 01/10/2024 10:35 AM CDT 01/10/2024 10:37 AM CDT Darcie Saunders MD BKR LAB PT OF CARE [facility] Performing Organization Address City/[facility]/ZIP Co de Phone Number [address] [address] * Hemoglobin (01/10/2024 8:22 AM CDT) HGB 12.7 12.0 - 15.5 g/dL 01/10/2024 8:53 AM CDT [facility] Blood VENOUS BLOOD SPECIMEN / Unknown Venipuncture / Unknown 01/10/2024 8:22 AM CDT 01/10/2024 8:49 AM CDT Darcie Saunders MD BKR LAB BLOOD ORDERA BLES Performing Organization Address City/[facility]/ZIP Co de Phone Number [place] [phone] * (ABNORMAL) GLUCOSE, BEDSIDE - POINT OF CARE (01/10/2024 6:17 AM CDT) GLUCOSE, BEDSIDE - POINT OF CARE 133(H) 70 - 99 mg/dL 01/10/2024 6:17 AM CDT [facility] Blood CAPILLARY BLOOD SPECIMEN / Unknown 01/10/2024 6:17 AM CDT 01/10/2024 6:19 AM CDT Darcie Saunders MD BKR LAB PT OF CARE [place] [address] * Magnesium (01/10/2024 4:17 AM CDT) Magnesium 2.2 1.7 - 2.4 mg/dL 01/10/2024 10:24 AM CDT [facility] Blood VENOUS BLOOD SPECIMEN / Unknown Venipuncture / Unknown 01/10/2024 4:17 AM CDT 01/10/2024 4:20 AM CDT Lauren Hendricks NP [place] [address] * CBC with Automated Differential (performable only) (01/10/2024 4:17 AM CDT) WBC 6.8 4.2 - 11.0 K/mcL 01/10/2024 4:23 AM CDT [facility] RBC 4.41 4.00 - 5.20 mil/mcL 01/10/2024 4:23 AM CDT [facility] HGB 12.5 12.0 - 15.5 g/dL 01/10/2024 4:23 AM CDT [facility] HCT 37.9 36.0 - 46.5 % 01/10/2024 4:23 AM CDT [facility] MCV 85.9 78.0 - 100.0 fl 01/10/2024 4:23 AM CDT [facility] MCH 28.3 26.0 - 34.0 pg 01/10/2024 4:23 AM [facility] MCHC 33.0 32.0 - 36.5 g/dL 01/10/2024 4:23 AM [facility] RDW-CV 15.0 11.0 - 15.0 % 01/10/2024 4:23 AM [facility] RDW-SD 47.3 39.0 - 50.0 fL 01/10/2024 4:23 AM T [facility] PLT 183 140 - 450 K/mcL 01/10/2024 4:23 AM [facility] NRBC 0 <=0 /100 WBC 01/10/2024 4:23 AM [facility] Neutrophil, Percent 70 % 01/10/2024 4:23 AM [facility] Lymphocytes, Percent 20 % 01/10/2024 4:23 AM [facility] Holmes, Percent 6 % 01/10/2024 4:23 AM [facility] Eosinophils, Percent 3 % 01/10/2024 4:23 AM [facility] Basophils, Percent 0 % 01/10/2024 4:23 AM [facility] Immature Granulocytes 1 % 01/10/2024 4:23 AM [facility] Absolute Neutrophils 4.8 1.8 - 7.7 K/mcL 01/10/2024 4:23 AM [facility] Absolute Lymphocytes 1.4 1.0 - 4.0 K/mcL 01/10/2024 4:23 AM [facility] Absolute Monocytes 0.4 0.3 - 0.9 K/mcL 01/10/2024 4:23 AM [facility] Absolute Eosinophils 0.2 0.0 - 0.5 K/mcL 01/10/2024 4:23 AM [facility] Absolute Basophils 0.0 0.0 - 0.3 K/mcL 01/10/2024 4:23 AM [facility] Absolute Immature Granulocytes 0.1 0.0 - 0.2 K/mcL 01/10/2024 4:23 AM [facility] Blood VENOUS BLOOD SPECIMEN / Unknown Venipuncture / Unknown 01/10/2024 4:17 AM CDT 01/10/2024 4:19 AM CDT Darcie Saunders MD BKR LAB BLOOD ORDERA BLES [facility] [address] [place] [address] * (ABNORMAL) Comprehensive Metabolic Panel (01/10/2024 4:17 AM CDT) Fasting Status 01/10/2024 4:44 AM CDT [facility] Sodium 137 135 - 145 mmol/L 01/10/2024 4:44 AM T [facility] Potassium 4.4 3.4 - 5.1 mmol/L 01/10/2024 4:44 AM T [facility] Chloride 107 97 - 110 mmol/L 01/10/2024 4:44 AM T [facility] Carbon Dioxide 26 21 - 32 mmol/L 01/10/2024 4:44 AM T [facility] Anion Gap 8 7 - 19 mmol/L 01/10/2024 4:44 AM T [facility] Glucose 127(H) 70 - 99 mg/dL 01/10/2024 4:44 AM T [facility] BUN 15 6 - 20 mg/dL 01/10/2024 4:44 AM T [facility] Creatinine 0.97(H) 0.51 - 0.95 mg/dL 01/10/2024 4:44 AM T [facility] Glomerular Filtration Rate 69 >=60 01/10/2024 4:44 AM T [facility] Comment:eGFR results = or >6 0 mL/min/1.73m2 = Normal kidney function. Estimated GFR calculated using the CKD-EPI-R (2020) equation that does not include race in the creatinine calculation. BUN/Cr 15 7 - 25 01/10/2024 4:44 AM T [facility] Calcium 8.5 8.4 - 10.2 mg/dL 01/10/2024 4:44 AM [facility] Bilirubin, Total 1.0 0.2 - 1.0 mg/dL 01/10/2024 4:44 AM CDT [facility] GOT/AST 10 <=37 Units/L 01/10/2024 4:44 AM CDT [facility] GPT/ALT 16 <64 Units/L 01/10/2024 4:44 AM CDT [facility] Alkaline Phosphatase 117 45 - 117 Units/L 01/10/2024 4:44 AM CDT [facility] Albumin 3.1(L) 3.6 - 5.1 g/dL 01/10/2024 4:44 AM CDT [facility] Protein, Total 6.6 6.4 - 8.2 g/dL 01/10/2024 4:44 AM CDT [facility] Globulin 3.5 2.0 - 4.0 g/dL 01/10/2024 4:44 AM CDT [facility] A/G Ratio 0.9(L) 1.0 - 2.4 01/10/2024 4:44 AM CDT [facility] Blood VENOUS BLOOD SPECIMEN / Unknown Venipuncture / Unknown 01/10/2024 4:17 AM CDT 01/10/2024 4:20 AM CDT Darcie Saunders MD [place] [address] * Hemoglobin (01/10/2024 12:08 AM CDT) HGB 13.2 12.0 - 15.5 g/dL 01/10/2024 12:13 AM CDT [facility] Blood VENOUS BLOOD SPECIMEN / Unknown Venipuncture / Unknown 01/10/2024 12:08 AM CDT 01/10/2024 12:11 AM CDT Darcie Saunders MD [place] [address] * (ABNORMAL) GLUCOSE, BEDSIDE - POINT OF CARE (01/09/2024 8:44 PM CDT) GLUCOSE, BEDSIDE - POINT OF CARE 143(H) 70 - 99 mg/dL 01/09/2024 8:44 PM CDT [facility] Blood CAPILLARY BLOOD SPECIMEN / Unknown 01/09/2024 8:44 PM CDT 01/09/2024 8:46 PM CDT Darcie Saunders MD BKR LAB PT OF CARE [facility] [address] [address] * Light Green Top (01/09/2024 7:47 PM CDT) Extra Tube Hold for Add Ons 01/10/2024 4:01 AM CDT [facility] Blood VENOUS BLOOD SPECIMEN / Unknown Venipuncture / Unknown 01/09/2024 7:47 PM CDT 01/09/2024 7:49 PM CDT Darcie Saunders MD BKR LAB BLOOD ORDERA BLES [address] [address] * [place] Top Tube (01/09/2024 7:47 PM CDT) Extra Tube Hold for Add Ons 01/10/2024 4:01 AM CDT [facility] Blood VENOUS BLOOD SPECIMEN / Unknown Venipuncture / Unknown 01/09/2024 7:47 PM CDT 01/09/2024 7:49 PM CDT Darcie Saunders MD BKR LAB BLOOD ORDERA BLES [address] [address] * Hemoglobin (01/09/2024 7:47 PM CDT) HGB 13.3 12.0 - 15.5 g/dL 01/09/2024 7:51 PM CDT [facility] Blood VENOUS BLOOD SPECIMEN / Unknown Venipuncture / Unknown 01/09/2024 7:47 PM CDT 01/09/2024 7:49 PM CDT Darcie Saunders MD BKR LAB BLOOD ORDERA BLES [facility] [address] [place] [address] * CT ABDOMEN PELVIS WO CONTRAST (01/09/2024 [...] 01/09/2024 3:38 PM Created on Workstation ID: [id number] Signed on Workstation ID: [id number] Narrative 01/09/2024 3:38 PM CDT EXAM: CT [...] right hepatic lobe for a distance of cm. The dominant right hepatic lobe liver [...] 01/09/2024 3:38 PM Created on Workstation ID: [id number] Signed on Workstation ID: [id number] Castillo Llanos MD IMG CT PROCEDURES * US ASPIRATION ABSCESS HEMATOMA CYST (01/09/2024 1:39 PM CDT) Anatomical Region Laterality Modality N/A Ultrasound 01/09/2024 4:00 PM CDT Impressions 01/09/2024 4:01 PM CDT IMPRESSION: Successful ultrasound-guided aspiration. Electronically Signed by: Castillo Llanos MD Signed on: 01/09/2024 4:01 PM Created on Workstation ID: [id number] Signed on Workstation ID: [id number] Narrative 01/09/2024 4:01 PM CDT EXAM: US ASPIRATION ABSCESS HEMATOMA CYST CLINICAL HISTORY: ??LIVER CYST COMPARISON: CT abdomen and pelvis January 09, 2024 CONSENT: Informed consent was obtained from the patient and/or their appropriate durable power of trust and estates attorney. The risks, benefits, and alternatives were discussed in detail and understanding was voiced. The opportunity to ask questions was given and all questions were answered. At the conclusion of the discussion the patient and/or DPOA provided informed consent and elected to proceed. TECHNIQUE: The patient was brought to the ultrasound suite. Preliminary municipal engineer ultrasound images were acquired and a puncture site was chosen to target dominant liver cyst in the right liver. The patient was then prepped and draped in usual sterile fashion. 1% lidocaine was used to anesthetize the skin. A [employer] [place] needle was then advanced into the target [...] patient and/or their appropriate durable power of trust and estates attorney. The risks, benefits, and alternatives were discussed in detail and understanding was voiced. The opportunity to ask questions was given and all questions were answered.At the conclusion of the discussion the patient and/or DPOA providedinformed consent and elected to proceed. TECHNIQUE: The patient was brought to the ultrasound suite. Preliminary municipal engineer ultrasound images were acquired and a puncture [...] 01/09/2024 4:01 PM Created on Workstation ID: [id number] Signed on Workstation ID: [id number] Sabine Jerry DO [facility] [place] US PROCEDURES * Prothrombin Time (INR/PT) (01/09/2024 11:15 AM CDT) Protime- PT 10.9 9.7 - 11.8 sec 01/09/2024 11:36 AM CDT [facility] INR 1.0 01/09/2024 11:36 AM CDT [facility] Comment:INR Therapeutic Rang e: 2.0 to 3.0 (2.5 to 3.5 recommended for recurrent thrombotic episodes and mechanical prosthetic heart valves.) Blood VENOUS BLOOD SPECIMEN / Unknown Venipuncture / Unknown 01/09/2024 11:15 AM CDT 01/09/2024 11:21 AM CDT Sabine Jerry DO BKR LAB BLOOD ORDE DAYO [facility] [address] [place] [address] * CT ABDOMEN PELVIS W CONTRAST - [...] 01/09/2024 10:06 AM Created on Workstation ID: [id number] Signed on Workstation ID: [id number] Narrative 01/09/2024 10:06 AM CDT EXAM: CT [...] 01/09/2024 10:06 AM Created on Workstation ID: [id number] Signed on Workstation ID: [id number] Sabine Jerry DO IMG CT PROCEDURES * (ABNORMAL) ISTAT8 VENOUS POINT OF CARE (01/09/2024 8:59 AM CDT) BUN - POINT OF CARE 17 6 - 20 mg/dL 01/09/2024 8:59 AM T [facility] SODIUM - POINT OF CARE 141 135 - 145 mmol/L 01/09/2024 8:59 AM [facility] POTASSIUM - POINT OF CARE 3.8 3.4 - 5.1 mmol/L 01/09/2024 8:59 AM [facility] CHLORIDE - POINT OF CARE 104 97 - 110 mmol/L 01/09/2024 8:59 AM [facility] TCO2 - POINT OF CARE 25(H) 19 - 24 mmol/L 01/09/2024 8:59 AM [facility] ANION GAP - POINT OF CARE 17 7 - 19 mmol/L 01/09/2024 8:59 AM [facility] HEMATOCRIT - POINT OF CARE 42.0 36.0 - 46.5 % 01/09/2024 8:59 AM [facility] HEMOGLOBIN - POINT OF CARE 14.3 12.0 - 15.5 g/dL 01/09/2024 8:59 AM [facility] GLUCOSE - POINT OF CARE 119(H) 70 - 99 mg/dL 01/09/2024 8:59 AM [facility] CALCIUM, IONIZED - POINT OF CARE 1.11(L) 1.15 - 1.29 mmol/L 01/09/2024 8:59 AM [facility] Creatinine 1.20(H) 0.51 - 0.95 mg/dL 01/09/2024 8:59 AM [facility] Glomerular Filtration Rate 54(L) >=60 01/09/2024 8:59 AM [facility] Comment:eGFR 30-59 mL/min/1. 73m2 = Moderate decrease in kidney function. Stage 3 CKD (chronic kidney disease) or moderate kidney disease. Estimated GFR calculated using the CKD-EPI-R (2020) equation that does not include race in the creatinine calculation. Blood VENOUS BLOOD SPECIMEN / Unknown 01/09/2024 8:59 AM CDT 01/09/2024 9:01 AM CDT Sabine Jerry DO BKR LAB [place] [address] * (ABNORMAL) Lipase (01/09/2024 8:46 AM CDT) Lipase 14(L) 15 - 77 Units/L 01/09/2024 9:16 AM CDT [facility] Blood VENOUS BLOOD SPECIMEN / Unknown Venipuncture / Unknown 01/09/2024 8:46 AM CDT 01/09/2024 8:52 AM CDT Sabine Jerry DO BKR LAB BLOOD ORDE RABLES Performing Organization Address City/[facility]/[place] [address] * CBC with Automated Differential (performable only) (01/09/2024 8:46 AM CDT) WBC 8.7 4.2 - 11.0 K/mcL 01/09/2024 8:56 AM CDT [facility] RBC 4.98 4.00 - 5.20 mil/mcL 01/09/2024 8:56 AM CDT [facility] HGB 14.0 12.0 - 15.5 g/dL 01/09/2024 8:56 AM CDT [facility] HCT 41.5 36.0 - 46.5 % 01/09/2024 8:56 AM CDT [facility] MCV 83.3 78.0 - 100.0 fl 01/09/2024 8:56 AM CDT [facility] MCH 28.1 26.0 - 34.0 pg 01/09/2024 8:56 AM [facility] MCHC 33.7 32.0 - 36.5 g/dL 01/09/2024 8:56 AM [facility] RDW-CV 14.8 11.0 - 15.0 % 01/09/2024 8:56 AM [facility] RDW-SD 44.8 39.0 - 50.0 fL 01/09/2024 8:56 AM [facility] PLT 203 140 - 450 K/mcL 01/09/2024 8:56 AM [facility] NRBC 0 <=0 /100 WBC 01/09/2024 8:56 AM [facility] Neutrophil, Percent 73 % 01/09/2024 8:56 AM [facility] Lymphocytes, Percent 19 % 01/09/2024 8:56 AM [facility] Holmes, Percent 5 % 01/09/2024 8:56 AM [facility] Eosinophils, Percent 2 % 01/09/2024 8:56 AM [facility] Basophils, Percent 0 % 01/09/2024 8:56 AM [facility] Immature Granulocytes 1 % 01/09/2024 8:56 AM [facility] Absolute Neutrophils 6.3 1.8 - 7.7 K/mcL 01/09/2024 8:56 AM [facility] Absolute Lymphocytes 1.7 1.0 - 4.0 K/mcL 01/09/2024 8:56 AM [facility] Absolute Monocytes 0.5 0.3 - 0.9 K/mcL 01/09/2024 8:56 AM [facility] Absolute Eosinophils 0.2 0.0 - 0.5 K/mcL 01/09/2024 8:56 AM [facility] Absolute Basophils 0.0 0.0 - 0.3 K/mcL 01/09/2024 8:56 AM [facility] Absolute Immature Granulocytes 0.1 0.0 - 0.2 K/mcL 01/09/2024 8:56 AM [facility] Blood VENOUS BLOOD SPECIMEN / Unknown Venipuncture / Unknown 01/09/2024 8:46 AM CDT 01/09/2024 8:52 AM CDT Narrative [facility] - 01/09/2024 8:56 AM CDT This is an appended report. ??These results have been appended to a previously verified report. Sabine JOHNSONR LAB BLOOD ORDJavad OSHEA Performing Organization Address City/[facility]/[place] [address] * (ABNORMAL) C Reactive Protein (01/09/2024 8:46 AM CDT) C-Reactive Protein 32.6(H) <10.0 mg/L 01/09/2024 9:16 AM CDT [facility] Blood VENOUS BLOOD SPECIMEN / Unknown Venipuncture / Unknown 01/09/2024 8:46 AM CDT 01/09/2024 8:52 AM CDT Sabine JOHNSONR LAB BLOOD ORDE DAYO Performing Organization Address [facility]/[place] [address] * (ABNORMAL) Comprehensive Metabolic Panel (01/09/2024 8:46 AM CDT) Fasting Status 01/09/2024 9:16 AM CDT [facility] Sodium 139 135 - 145 mmol/L 01/09/2024 9:16 AM CDT [facility] Potassium 3.7 3.4 - 5.1 mmol/L 01/09/2024 9:16 AM CDT [facility] Chloride 108 97 - 110 mmol/L 01/09/2024 9:16 AM CDT [facility] Carbon Dioxide 27 21 - 32 mmol/L 01/09/2024 9:16 AM CDT [facility] Anion Gap 8 7 - 19 mmol/L 01/09/2024 9:16 AM CDT [facility] Glucose 123(H) 70 - 99 mg/dL 01/09/2024 9:16 AM [facility] BUN 18 6 - 20 mg/dL 01/09/2024 9:16 AM [facility] Creatinine 1.11(H) 0.51 - 0.95 mg/dL 01/09/2024 9:16 AM [facility] Glomerular Filtration Rate 59(L) >=60 01/09/2024 9:16 AM [facility] Comment:eGFR 30-59 mL/min/1. 73m2 = Moderate decrease in kidney function. Stage 3 CKD (chronic kidney disease) or moderate kidney disease. Estimated GFR calculated using the CKD-EPI-R (2020) equation that does not include race in the creatinine calculation. BUN/Cr 16 7 - 25 01/09/2024 9:16 AM [facility] Calcium 9.3 8.4 - 10.2 mg/dL 01/09/2024 9:16 AM [facility] Bilirubin, Total 0.8 0.2 - 1.0 mg/dL 01/09/2024 9:16 AM [facility] GOT/AST 13 <=37 Units/L 01/09/2024 9:16 AM [facility] GPT/ALT 19 <64 Units/L 01/09/2024 9:16 AM [facility] Alkaline Phosphatase 140(H) 45 - 117 Units/L 01/09/2024 9:16 AM [facility] Albumin 3.4(L) 3.6 - 5.1 g/dL 01/09/2024 9:16 AM [facility] Protein, Total 7.4 6.4 - 8.2 g/dL 01/09/2024 9:16 AM [facility] Globulin 4.0 2.0 - 4.0 g/dL 01/09/2024 9:16 AM [facility] A/G Ratio 0.9(L) 1.0 - 2.4 01/09/2024 9:16 AM [facility] Blood VENOUS BLOOD SPECIMEN / Unknown Venipuncture / Unknown 01/09/2024 8:46 AM CDT 01/09/2024 8:52 AM CDT Sabine Jerry DO BKR LAB BLOOD ORDE DAYO [facility] [address] [place] [address] documented in this encounter Visit Diagnoses Diagnosis [...] 1 dose, If an IV and an oral/OK medication are ordered PRN for the same pain severity, administer IV only if patient is NPO/if oral is not tolerated. Given 01/09/2024 3:09 PM CDT 0.5 mg HYDROmorphone (DILAUDID) injection 0.5 mg 0.5 mg EVERY 2 HOURS PRN, Intravenous, Severe Pain, Starting on Tue01/09/24 at 1932, If an IV and an oral/OK medication are ordered PRN for the same [...] renewals allowed. If an IV and an oral/OK medication are ordered PRN for the same [...] renewals allowed. If an IV and an oral/OK medication are ordered PRN for the same [...] Magnesium Standard Replacement Protocol Administer magnesium per [facility] approved protocol. melatonin tablet 3 mg 3 [...] at 1606, If an IV and an oral/OK medication are ordered PRN for the same [...] Phosphorus Standard Replacement Protocol Administer phosphorus per [facility] approved protocol. polyethylene glycol (MIRALAX) packet 17 [...] (Levels 3.5 and lower) Administer potassium per [facility] approved protocol for levels of 3.5 mEq/L [...] 1 dose, If an IV and an oral/OK medication are ordered PRN for the same [...] 5 units of Correction Dose and Notify 1718 (Not Given - Provider: Lili Cabello [...] renewals allowed. If an IV and an oral/OK medication are ordered PRN for the same [...] Mcallister RN) 0824 (Given - Provider: Kassandra Tabares RN)2112 (Given - Provider: Evangelina Pena RN) 0811 (Given - Provider: Darcie Cronin, MÓNICA) Magnesium Standard Replacement Protocol Administer magnesium per [facility] approved protocol. montelukast (SINGULAIR) tablet 10 mg 10 mg DAILY, Oral, First dose on Tue01/09/24 at 1815 1717 (Not Given - Provider: Lili Cabello RN - Reason: Patient/family refused) 0824 (Given - Provider: Kassandra Tabares RN) 0811 (Given - Provider: Darcie Cronin, MÓNICA) Phosphorus Standard Replacement Protocol Administer phosphorus per [facility] approved protocol. polyethylene glycol (MIRALAX) packet 17 [...] (Levels 3.5 and lower) Administer potassium per [facility] approved protocol for levels of 3.5 mEq/L and lower. QUEtiapine (SEROquel) tablet 150 mg 150 mg EVERY 12 HOURS SCHEDULED (2 times per day), Oral, First dose on Tue01/09/24 at 2100 2100 (Given - Provider: Christi Mcallister RN) 08 (Not Given - Provider: Kassandra Tabares RN - Reason: Patient/family refused)2111 (Given - Provider: Evangelina Pena, MÓNICA) 0833 (Not Given - Provider: Darcie Cronin RN - Reason: Patient/family refused) sodium chloride 0.9 % injection 2 mL 2 mL EVERY 12 HOURS SCHEDULED (2 times per day), Intracatheter, First dose on Tue01/09/24 at 2100 2121 (Given - Provider: Christi Mcallister RN) 075 (Given - Provider: Kassandra Tabares RN)2111 (Given - Provider: Evangelina Pena, MÓNICA) 08 (Given - Provider: Darcie Cronin, MÓNICA) PRN Medication Order 01/09/2024 01/10/2024 01/11/2024 acetaminophen [...] at 1932, If an IV and an oral/OK medication are ordered PRN for the same [...] renewals allowed. If an IV and an oral/OK medication are ordered PRN for the same [...] at 1606, If an IV and an oral/OK medication are ordered PRN for the same [...] 01/11/2024 documented in this encounter Care Teams Auditor/Quality Relationship Specialty Start Date End Date Marleni Jung [address] [phone] PCP - General Family Practice 01/09/24 documented as of this encounter
--- OUTSIDE RECORDS SUMMARY | 2024-07-17 03:57 | XMS_ITS | Encounter Summary ---
Author Organization [facility] Address [address] [place] [id number] Care Team Providers Care Performance Analyst Name Role Phone Marleni Jung Primary Care Provider Encounter Details Date Type Department Care Team (Latest Contact Info) Description 01/09/2024 Travel Social History Tobacco Use Types Packs/Day Years Used Date Smoking Tobacco: Never Passive Smoke Exposure: Past Smokeless Tobacco: Never Alcohol Use Standard Drinks/Week Comments Yes 0 (1 standard drink = 0.6 oz pur e alcohol) Utilities Answer Date Recorded In the past 12 months has [employer] electric, gas, oil, or water company threatened [...] on filedocumented in this encounter Care Teams Performance Analyst Relationship Specialty Start Date End Date Marleni Jung [address] [phone] PCP - General Family Practice 01/09/24 documented as of this encounter
--- OUTSIDE RECORDS SUMMARY | 2024-07-17 03:57 | XMS_ITS | Encounter Summary ---
Author Organization [facility] Address [address] [place] [address]. [place], [place] [address] [place] [address] Care Team Providers Care Fashion Consultant Sales Name Role Phone None, Provider MD Primary Care Provider Unavaila ble Reason for Referral * Imaging (Emergency) - Closed Specialty Diagnoses / Procedures Referred By Contac t Referred To Contact Procedures CT ABD+PEL W CON Nika Torres MD [address] [place] [phone] Phone: tel: fax: Referral ID Status Reason Start Date Expiration Date Visits Re quested Visits Authorized [id number] Closed 12/22/2017 01/21/2019 1 1 Reason for [...] CDT - 12/22/2017 7:31 PM CDT Emergency [facility] [address] [place] [address] Nika Torres MD [address] [place] [phone] Abdominal Pain (Abdominal cramping started this [...] Written by the doctors and editors at [facility] What is an acute abdomen???--??Doctors use the [...] process is complete. This topic retrieved from [employer] on: Jul 21, 2017. Topic 47362 Version 9.0 Release: 25.6.2-122 - C26.3 ?2018??[employer] and/or its affiliates.??All rights reserved. figure 1: Organs inside the abdomen (belly) Graphic 47568 Version 6.0 figure 2: Anatomy of the urinary tract Urine is made by the kidneys. It passes from the kidneys into the bladder through two tubes called the ureters. Then it leaves the bladder through another tube called the urethra. Graphic 87263 Version 7.0 figure 3: Female reproductive anatomy These are the internal organs that make up a woman's reproductive system. Graphic 51797 Version 5.0 Consumer Information Use and Disclaimer [...] that is right for you.The use of [employer] content is governed by the [employer] Terms of Use. ??2018 [employer]. All rights reserved. Copyright ?2018??[employer]. and/or its affiliates.??All rights reserved. documented in [...] a year ago at a hospital in [place]. 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 Smoking [...] and follow up as an outpatient in [place] with her PMD. She may consider a GI consult as this was her second episode of similar symptoms. FINAL IMPRESSION 1. Acute abdominal pain, initial encounter 2. Nika Torres MD 12/22/17 [id number] documented in this encounter Plan of Treatment [...] Narrative 12/22/2017 6:21 PM CDT INTERPRETATION LOCATION: [facility] PROCEDURE: ??CT ABD+PEL W CON DATE: ??12/22/2017 [...] Jose Pugh MD - 12/22/2017 INTERPRETATION LOCATION: [facility] PROCEDURE: CT ABD+PEL W CON DATE: 12/22/2017 [...] URINE CLEAN CATCH 12/22/2017 3:17 PM CDT [facility] COLOR (U) STRAW 12/22/2017 3:24 PM CDT [facility] TRANSPARENCY CLEAR CLEAR 12/22/2017 3:24 PM CDT [facility] SPECIFIC GRAVITY (U) 1.004 1.001 - 1.035 12/22/2017 3:24 PM CDT [facility] U PH 5.0 5.0 - 9.0 12/22/2017 3:24 PM CDT [facility] PROTEIN (U) NEGATIVE NEGATIVE MG/DL 12/22/2017 3:24 PM CDT [facility] GLUCOSE (U) NEGATIVE NEGATIVE MG/DL 12/22/2017 3:24 PM CDT [facility] KETONES MG/DL (U) NEGATIVE NEGATIVE MG/DL 12/22/2017 3:24 PM CDT [facility] BILIRUBIN (U) NEGATIVE NEGATIVE 12/22/2017 3:24 PM CDT [facility] BLOOD (U) NEGATIVE NEGATIVE 12/22/2017 3:24 PM CDT [facility] UROBILINOGEN <2.0 <2.0 MG/DL 12/22/2017 3:24 PM CDT [facility] NITRITES NEGATIVE NEGATIVE 12/22/2017 3:24 PM CDT [facility] LEUKOCYTES (U) NEGATIVE NEGATIVE 12/22/2017 3:24 PM CDT [facility] WBC/HPF NONE SEEN 0 - 2 /HPF 12/22/2017 3:24 PM CDT [facility] RBC/HPF NONE SEEN 0 - 2 /HPF 12/22/2017 3:24 PM CDT [facility] EPI/HPF 0-2 0 - 2 /HPF 12/22/2017 3:24 PM CDT [facility] BACTERIA (U) FEW(A) NONE SEEN 12/22/2017 3:24 PM CDT [facility] URINE SPECIMEN OBTAINED BY CLEAN CATCH PROCEDURE / Unknown 12/22/2017 3:12 PM CDT us Nika Torres MD URINE ORDERABLES Final Result [facility] [address] [place] [address] * (ABNORMAL) COMPREHENSIVE METABOLIC PANEL (12/22/2017 2:50 PM CDT) SODIUM S/P/B 142 136 - 145 MMOL/L 12/22/2017 3:24 PM CDT [facility] POTASSIUM S/P/B 3.7 3.5 - 5.1 MMOL/L 12/22/2017 3:24 PM CDT [facility] CHLORIDE S/P/B 109(H) 98 - 107 MMOL/L 12/22/2017 3:24 PM CDT [facility] CO2 23.0 21.0 - 32.0 MMOL/L 12/22/2017 3:24 PM CDT [facility] ANION GAP 10.0 5.0 - 15.0 MMOL/L 12/22/2017 3:24 PM CDT [facility] BUN 7 7 - 18 MG/DL 12/22/2017 3:24 PM T [facility] CREATININE S/P/B 0.64 0.55 - 1.02 MG/DL 12/22/2017 3:24 PM T [facility] BUN CREATININE RATIO 11.0 10.0 - 20.0 12/22/2017 3:24 PM T [facility] EGFR NON-AFR. AMER. >90 >90 ML/MIN/1.7 3 M2 12/22/2017 3:24 PM T [facility] EGFR AFR. AMER. >90 >90 ML/MIN/1.7 3 M2 12/22/2017 3:24 PM T [facility] Comment: NOTE: eGFR is not calculated for patients <18 years of age. This is an estimated GFR (CKD EPI) and should not be used for calculating drug doses. GLUCOSE 80 70 - 99 MG/DL 12/22/2017 3:24 PM T [facility] CALCIUM S/P/B 8.1(L) 8.5 - 10.1 MG/DL 12/22/2017 3:24 PM T [facility] TOTAL PROTEIN S/P/B 6.6 6.4 - 8.5 G/DL 12/22/2017 3:24 PM T [facility] ALBUMIN S/P/B 3.2(L) 3.4 - 5.0 G/DL 12/22/2017 3:24 PM T [facility] Comment:Note: Reference Rang e Updated BILIRUBIN TOTAL S/P/B 0.7 0.2 - 1.0 MG/DL 12/22/2017 3:24 PM T [facility] ALKALINE PHOSPHATASE S/P/B 54 45 - 117 U/L 12/22/2017 3:24 PM T [facility] AST 11(L) 15 - 37 U/L 12/22/2017 3:24 PM CDT [facility] ALT 12 12 - 78 U/L 12/22/2017 3:24 PM CDT [facility] Comment:Note: Reference Rang e Updated 12/22/2017 2:50 PM CDT Nika Torres MD LABORATORY Final Result Performing Organization Address [facility]/ZIP Co de Phone Number [facility] [address] [place] [address] * (ABNORMAL) LIPASE (12/22/2017 2:50 PM CDT) LIPASE 70(L) 73 - 393 UNITS/L 12/22/2017 3:24 PM CDT [facility] 12/22/2017 2:50 PM CDT Nika Torres MD LABORATORY Final Result Performing Organization Address [facility] Co de Phone Number [facility] [address] [place] [address] * CBC W/DIFF AUTOMATED (12/22/2017 2:50 PM CDT) WBC 7.0 3.8 - 10.7 x10'3/uL 12/22/2017 3:12 PM CDT [facility] RBC 4.37 3.80 - 5.20 x10'6/uL 12/22/2017 3:12 PM CDT [facility] HGB 13.0 12.0 - 16.0 G/DL 12/22/2017 3:12 PM CDT [facility] HCT 37.9 35.0 - 46.0 % 12/22/2017 3:12 PM CDT [facility] MCV 86.7 80.0 - 98.0 FL 12/22/2017 3:12 PM CDT [facility] MCH 29.7 25.0 - 34.0 PG 12/22/2017 3:12 PM CDT [facility] MCHC 34.3 32.0 - 36.0 G/DL 12/22/2017 3:12 PM CDT [facility] RDW 14.4 11.0 - 15.0 % 12/22/2017 3:12 PM CDT [facility] RDW-SD 45.4 36.4 - 46.3 FL 12/22/2017 3:12 PM CDT [facility] PLT 209 140 - 440 x10'3/uL 12/22/2017 3:12 PM CDT [facility] MPV 12.5 9.2 - 12.7 FL 12/22/2017 3:12 PM CDT [facility] DIFFERENTIAL TYPE AUTOMATED DIFFERENTIAL 12/22/2017 3:12 PM CDT [facility] NEUTROPHILS % 67.4 % 12/22/2017 3:12 PM CDT [facility] LYMPHOCYTES % 23.8 % 12/22/2017 3:12 PM CDT [facility] MONOCYTES % 5.1 % 12/22/2017 3:12 PM CDT [facility] EOSINOPHILS % 2.6 % 12/22/2017 3:12 PM CDT [facility] BASOPHILS % 0.7 % 12/22/2017 3:12 PM CDT [facility] IMMATURE GRANS % 0.4 % 12/23/19 18 3:12 PM CDT [facility] ABS. NEUTROPHILS 4.73 1.66 - 6.39 x10'3/uL 12/22/2017 3:12 PM CDT [facility] ABS. LYMPHOCYTES 1.67 0.65 - 3.19 x10'3/uL 12/22/2017 3:12 PM CDT [facility] ABS. MONOCYTES 0.36 0.19 - 0.87 x10'3/uL 12/22/2017 3:12 PM CDT [facility] ABS. EOSINOPHILS 0.18 0.00 - 0.43 x10'3/uL 12/22/2017 3:12 PM CDT [facility] ABS. BASOPHILS 0.05 0.00 - 0.08 x10'3/uL 12/22/2017 3:12 PM CDT [facility] ABS. IMMATURE GRANULOCYTES 0.03 0.00 - 0.07 x10'3/uL 12/22/2017 3:12 PM CDT [facility] NRBC % 0.0 % 12/22/2017 3:12 PM CDT [facility] NRBC 0.00 0.00 x10'3/uL 12/22/2017 3:12 PM CDT [facility] 12/22/2017 2:50 PM CDT us Nika Torres MD LABORATORY Final Result Performing Organization Address [facility]/ZIP Co de Phone Number [facility] [address] [place] [address] * ED BLOOD SAMPLE (ERHOLD) (12/22/2017 2:50 PM CDT) [facility] ED BLOOD SAMPLE (ERHOLD) ON HOLD, WAITING FOR ED ORDERS. CONTACT LABORATORY WITH IN 2 HOURS OF COLLECTION. 12/22/2017 2:53 PM CDT [facility] 12/22/2017 2:50 PM CDT us Lida Liriano DO LABORATORY Final Result Performing Organization Address [facility]/ZIP Co de Phone Number [facility] [address] [place] [address] documented in this encounter Visit Diagnoses Diagnosis [...] RTR) documented in this encounter Care Teams Fashion Consultant Sales Relationship Specialty Start Date End Date None, Provider, PCP - General 03/11/14 documented as of this encounter
--- OUTSIDE RECORDS SUMMARY | 2024-07-17 03:57 | XMS_ITS | Encounter Summary ---
Author Organization [facility] Address [address] [place] [address]. [place], [place] [address] [place] [address] Care Team Providers Care Segmental Wall Installer Name Role Phone None, Provider Primary Care Provider Charlenea nikole Manarang, Don DO Primary Care Provider [phone] Manarang, Don DO Primary Care Provider [phone] Manarang, Don DO Primary Care Provider [phone] Encounter Details Date Type Department Care Team (Late st Contact Info) Description 01/21/2013 Abstract [facility] Emergency [place], [place] [id number] , MD Elver Patel Randy J, MD [address] [place] [id number] Social History Tobacco Use Types Packs/Day Years [...] 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 Not on file Not on file documented as of this encounter Plan of Treatment Not on file documented as of this encounter Visit Diagnoses Diagnosis Bipolar I disorder, most recent episode depressed ([facility]) Bipolar I disorder, most recent episode (or current) depressed, unspecified documented in this encounter Care Teams Segmental Wall Installer Relationship Specialty Start Date End Date None, Provider, PCP - General 03/11/14 Bakari Vasquez DO [address] [facility] [address] [place] [address] PCP - General 01/31/13 03/10/14 Bakari Vasquez DO [address] [facility] [address] [place] [address] PCP - General 01/25/13 01/30/13 Bakari Vasquez DO [address] [facility] [address] [place] [address] PCP - General 01/21/13 01/24/13 documented as of this encounter
--- OUTSIDE RECORDS SUMMARY | 2024-07-17 03:57 | XMS_ITS | Clinical Summary ---
Author Organization [facility] Address [address] [place] [address] Care Team Providers Care Sales Attendant Name Role Phone Marleni Jung Primary Care Provider [phone] Allergies Active Allergy Reactions Criticality Noted Date [...] In the past 12 months has e [employer], gas, oil, or water [employer] threatened to shut off services in your home? No 01/09/2024 PHQ-2 Answer Date Recorded Initial depression screening score: 0 01/09/2024 Social Connections Answer Date Recorded How often do you see or talk to people that you care about and feel close to? (For example: talking to friends on the phone, visiting friends or family, going to caodaism or club meetings) 5 or more times [...] CDT) Fasting Status 01/13/2024 7:38 AM CDT [facility] Sodium 138 135 - 145 mmol/L 01/13/2024 7:38 AM CDT [facility] Potassium 3.6 3.4 - 5.1 mmol/L 01/13/2024 7:38 AM CDT [facility] Chloride 104 97 - 110 mmol/L 01/13/2024 7:38 AM CDT [facility] Carbon Dioxide 30 21 - 32 mmol/L 01/13/2024 7:38 AM CDT [facility] Anion Gap 8 7 - 19 mmol/L 01/13/2024 7:38 AM CDT [facility] Glucose 143(H) 70 - 99 mg/dL 01/13/2024 7:38 AM [facility] BUN 20 6 - 20 mg/dL 01/13/2024 7:38 AM [facility] Creatinine 1.16(H) 0.51 - 0.95 mg/dL 01/13/2024 7:38 AM [facility] Glomerular Filtration Rate 56(L) >=60 01/13/2024 7:38 AM [facility] Comment:eGFR 30-59 mL/min/1. 73m2 = Moderate decrease in kidney function. Stage 3 CKD (chronic kidney disease) or moderate kidney disease. Estimated GFR calculated using the CKD-EPI-R (2020) equation that does not include race in the creatinine calculation. BUN/Cr 17 7 - 25 01/13/2024 7:38 AM [facility] Calcium 8.9 8.4 - 10.2 mg/dL 01/13/2024 7:38 AM [facility] Bilirubin, Total 0.7 0.2 - 1.0 mg/dL 01/13/2024 7:38 AM [facility] GOT/AST 16 <=37 Units/L 01/13/2024 7:38 AM [facility] GPT/ALT 18 <64 Units/L 01/13/2024 7:38 AM [facility] Alkaline Phosphatase 119(H) 45 - 117 Units/L 01/13/2024 7:38 AM [facility] Albumin 3.0(L) 3.6 - 5.1 g/dL 01/13/2024 7:38 AM [facility] Protein, Total 6.9 6.4 - 8.2 g/dL 01/13/2024 7:38 AM [facility] Globulin 3.9 2.0 - 4.0 g/dL 01/13/2024 7:38 AM [facility] A/G Ratio 0.8(L) 1.0 - 2.4 01/13/2024 7:38 AM [facility] Blood VENOUS BLOOD SPECIMEN / Unknown Venipuncture / Unknown 01/13/2024 7:10 AM CDT 01/13/2024 7:15 AM CDT Nicholas Rios DO BKR LAB BLOOD ORDERA BLES [facility] [address] [place] [address] from Last 3 Months or Most Recently Relevant to Health Maintenance Advance Directives * Selective Treatment/DNR (Latest Code Status on File) Date Activated Date Inactivated Comments 01/09/2024 3:54 PM 01/11/2024 1:38 PM Question Answer Comments CPR in case of Cardiac Arrest? No Intubation ( Pre-Arrest ) ? Yes Antiarrhythmics (Pre-Arrest)? Yes Cardioversion (Pre-Arrest)? Yes Vasopressor (Pre-Arrest)? Yes Care Teams Sales Attendant Relationship Specialty Start Date End Date Marleni Jung [address] [place] [phone] PCP - General Family Practice 01/09/24
--- OUTSIDE RECORDS SUMMARY | 2024-07-17 03:57 | XMS_ITS | Encounter Summary ---
Author Organization [facility] Address [facility] [place] [address] Care Team Providers Care Miller Rod Mill Name Role Phone Unavailable Primary Care Provider Unavailabl e Encounter Details Date Type Department Care Team (Latest Contact Info) Description 03/29/2012 6:43 PM CDT - 03/29/2012 11:59 PM CDT Hospital Encounter [facility] DEFAULT [address] [place] [address] Discharge Disposition: Home or Self Care Social [...] Description 09/27/2024 11:30 AM CDT Office Visit [facility] - [address], [facility] [place] [phone] Marcos Ferrer MD [address] [place] [phone] documented as of this encounter Procedures Procedure [...] (Rubeola) Antibody IgG 5.8(H) SEE BELOW IV [facility] Comment: <0.9 ? Negative ?presumed non-immune >=0.9 to <1.1 Equivocal >=1.1 ?Positive ?presumed immune Interpretation Rubeola [facility] Comment: ? When equivocal results are [...] - CHEMISTRY TIFFANIE OSHEA Performing Organization Address [facility] de Phone Number [facility] [address] [place] [address] * RUBELLA ANTIBODY IGG (03/29/2012 11:38 AM CDT) Pathologist [facility] Rubella Antibody 34.3 SEE BELOW IU/ml [facility] Comment: =>10.0 Positive-Immune 5.0-9.9 Suggest Repeat Testing <5.0 Negative-Nonimmune BLOOD SPECIMEN / Unknown 03/29/2012 11:38 AM CDT 03/29/2012 6:44 PM CDT Provider Unknown LAB - SEROLOGY ORDER JASWANT Performing Organization Address [facility] de Phone Number [facility] [address] [place] [address] * (ABNORMAL) MUMPS ANTIBODY IGG (03/29/2012 11:38 AM CDT) Mumps Virus Antibody IgG 7.2(H) SEE BELOW IV [facility] Comment: <0.9 ? Negative ?presumed non-immune >=0.9 to <1.1 Equivocal >=1.1 ?Positive ?presumed immune BLOOD SPECIMEN / Unknown 03/29/2012 11:38 AM CDT 03/29/2012 6:44 PM CDT Provider Unknown LAB - CHEMISTRY Shustir Performing Organization Address [facility] Co de Phone Number [facility] [address] [place] [address] * HEPATITIS B SURFACE ANTIBODY (03/29/2012 11:38 AM CDT) Pathologist [facility] Hepatitis B Virus Surface Antibody Nonreactive Nonreactive [facility] BLOOD SPECIMEN / Unknown 03/29/2012 11:38 AM CDT 03/29/2012 6:44 PM CDT Provider Unknown LAB - CHEMISTRY Shustir Performing Organization Address [facility] Co de Phone Number [facility] [address] [place] [address] documented in this encounter Visit Diagnoses Not on filedocumented in this encounter
--- OUTSIDE RECORDS SUMMARY | 2024-07-17 03:57 | XMS_ITS | Encounter Summary ---
Author Organization [facility] Address [address] [place] [address] Care Team Providers Care Prize Fighter Name Role Phone Stacie Jungia Primary Care Provider [phone] Reason for Visit * Reason Comments Shoulder Pain Nausea Encounter Details Date Type Department Care Team ([facility] st Contact Info) Description 01/13/2024 6:42 AM CDT - 01/13/2024 10:06 AM CDT Emergency [facility] Emergency Services [address] [place], [place] [id number] Aaron Wolfe, [address] [place] [address] Catalina Montero, Adelaide Courtney RN [...] phone, visiting friends or family, going to oriental orthodox or club meetings) 5 or more times [...] through Care Everywhere. * Abdominal Pain, Adult ([place]) documented in this encounter Medications at Time [...] Home or Self Care ([facility]) documented in this encounter ED Notes * Aaron Wolfe, - 01/13/2024 6:51 AM CDT Patient: Vangie Yuen Age: [age] year old Sex: female Encounter Date: 01/13/2024 [place] [facility] ENCOUNTER [facility] EMERGENCY SERVICES [address] [place] [address] [id number] History Chief Complaint Patient presents with Shoulder [...] 0 Neutrophil, Percent 68 Lymphocytes, Percent 22 Rankin, Percent 6 Eosinophils, Percent 3 Basophils, Percent 0 Immature Granulocytes 1 Absolute Neutrophils 4.9 Absolute Lymphocytes 1.6 Absolute Monocytes 0.4 Absolute Eosinophils 0.2 Absolute Basophils 0.0 Absolute Immature Granulocytes 0.1 Electrocardiogram 12-Lead Result Value Systolic Blood Pressure 176 Diastolic Blood Pressure 102 Ventricular Rate EKG/Min (BPM) 78 Atrial Rate (BPM) 78 NV-Interval (MSEC) 198 QRS-Interval (MSEC) 88 QT-Interval (MSEC) 382 QTc 435 P [place] (Degrees) 41 R [place] (Degrees) 14 T [place] (Degrees) 57 REPORT TEXT Normal sinus rhythm Cannot rule out Anterior infarct , age undetermined Abnormal ECG No previous ECGs available Confirmed by AARON WOLFE DO ([id number]), food expeditor Poonam Allen ([id number]) on 01/13/2024 8:47:49 AM All laboratory results above were personally reviewed by myself, Aaron Wolfe DO. EKG Results EKG Interpretation EKG shows [...] 01/13/2024 8:48 AM Created on Workstation ID: [id number] Signed on Workstation ID: [id number] CTA CHEST PULMONARY EMBOLISM Final Result by [...] 01/13/2024 8:48 AM Created on Workstation ID: [id number] Signed on Workstation ID: [id number] Any images above were personally reviewed by [...] Intravenous Given 01/13/24 0836) Follow up: [facility] [address] [place] [phone] Patient was instructed to return to [...] Culture No Growth 01/14/2024 12:00 PM CDT [facility] Urine URINE SPECIMEN OBTAINED BY CLEAN CATCH PROCEDURE / Unknown 01/13/2024 8:24 AM CDT 01/13/2024 8:29 AM CDT Aaron SONG LAB MICRO-GEN OR DERABLES [facility] [address] * (ABNORMAL) Urinalysis & Reflex Microscopy With Culture If Indicated (01/13/2024 8:24 AM CDT) COLOR, URINALYSIS [place] 024 8:40 AM CDT [facility] APPEARANCE, URINALYSIS Cloudy 01/13/2024 8:40 AM CDT [facility] GLUCOSE, URINALYSIS Negative Negative mg/dL 01/13/2024 8:40 AM CDT [facility]] BILIRUBIN, URINALYSIS Negative Negative 01/13/2024 8:40 AM CDT [facility]] KETONES, URINALYSIS Negative Negative mg/dL 01/13/2024 8:40 AM CDT [facility] 2] SPECIFIC GRAVITY, URINALYSIS 1.024 1.005 - 1.030 01/13/2024 8:40 AM T [facility] 2] Comment:Measured by refracto metry OCCULT BLOOD, URINALYSIS Negative Negative 01/13/2024 8:40 AM CDT [facility] PH, URINALYSIS 6.0 5.0 - 7.0 01/13/2024 8:40 AM CDT [facility] 2] PROTEIN, URINALYSIS Negative Negative mg/dL 01/13/2024 8:40 AM CDT [facility] 2] UROBILINOGEN, URINALYSIS 0.2 0.2, 1.0 mg/dL 01/13/2024 8:40 AM T [facility] [place] 2] NITRITE, URINALYSIS Negative Negative 01/13/2024 8:40 AM CDT [facility]] LEUKOCYTE ESTERASE, URINALYSIS Small(A) Negative 01/13/2024 8:40 AM CDT [facility] [place] 2] SQUAMOUS EPITHELIAL, URINALYSIS 11 to 25(A) None Seen, 1 to 5 /hpf 01/13/2024 8:40 AM CDT [facility]] ERYTHROCYTES, URINALYSIS 1 to 2 None Seen, 1 to 2 /hpf 01/13/2024 8:40 AM CDT [facility]] LEUKOCYTES, URINALYSIS 6 to 10(A) None Seen, 1 to 5 /hpf 01/13/2024 8:40 AM CDT [facility] 2] BACTERIA, URINALYSIS Few(A) None Seen /hpf 01/13/2024 8:40 AM CDT [facility] 2] HYALINE CASTS, URINALYSIS None Seen None Seen, 1 to 5 /lpf 01/13/2024 8:40 AM CDT [facility] [place]] TRANSITIONAL EPITHELIALS 1 to 5 1 to 5, None Seen /hpf 01/13/2024 8:40 AM CDT [facility] 2] Urine URINE SPECIMEN OBTAINED BY CLEAN CATCH PROCEDURE / Unknown 01/13/2024 8:24 AM CDT 01/13/2024 8:29 AM CDT Aaron Wolfe DO BKR LAB URINE ORDERA BLES Performing Organization Address City/State/[facility] Co de Phone Number [facility]NOTE 2] [address] [place] [address] * CT ABDOMEN PELVIS W CONTRAST (01/13/2024 [...] 01/13/2024 8:48 AM Created on Workstation ID: [id number] Signed on Workstation ID: [id number] Narrative 01/13/2024 8:48 AM CDT EXAM: CTA [...] 01/13/2024 8:48 AM Created on Workstation ID: [id number] Signed on Workstation ID: [id number] Aaron Wolfe DO IMG CT PROCEDURES * [...] 01/13/2024 8:48 AM Created on Workstation ID: [id number] Signed on Workstation ID: [id number] Narrative 01/13/2024 8:48 AM CDT EXAM: CTA [...] 01/13/2024 8:48 AM Created on Workstation ID: [id number] Signed on Workstation ID: [id number] Aaron Wolfe DO IMG CT PROCEDURES * (ABNORMAL) CBC with Automated Differential (performable only) (01/13/2024 7:10 AM CDT) WBC 7.3 4.2 - 11.0 K/mcL 01/13/2024 7:21 AM CDT [facility] 2] RBC 4.04 4.00 - 5.20 mil/mcL 01/13/2024 7:21 AM CDT [facility] [place] 2] HGB 11.4(L) 12.0 - 15.5 g/dL 01/13/2024 7:21 AM CDT [facility] 2] HCT 34.4(L) 36.0 - 46.5 % 01/13/2024 7:21 AM T [facility] [place]NOTE 2] MCV 85.1 78.0 - 100.0 fl 01/13/2024 7:21 AM CDT [facility] 2] MCH 28.2 26.0 - 34.0 pg 01/13/2024 7:21 AM CDT [facility] 2] MCHC 33.1 32.0 - 36.5 g/dL 01/13/2024 7:21 AM T [facility] [place] 2] RDW-CV 14.6 11.0 - 15.0 % 01/13/2024 7:21 AM T [facility] [place]NOTE 2] RDW-SD 45.0 39.0 - 50.0 fL 01/13/2024 7:21 AM CDT [facility] 2] PLT 196 140 - 450 K/mcL 01/13/2024 7:21 AM CDT [facility] 2] NRBC 0 <=0 /100 WBC 01/13/2024 7:21 AM CDT [facility] 2] Neutrophil, Percent 68 % 01/13/2024 7:21 AM CDT [facility] 2] Lymphocytes, Percent 22 % 01/13/2024 7:21 AM CDT [facility]NOTE 2] Rankin, Percent 6 % 01/13/2024 7:21 AM CDT [facility] [place] 2] Eosinophils, Percent 3 % 01/13/2024 7:21 AM CDT [facility] 2] Basophils, Percent 0 % 01/13/2024 7:21 AM CDT [facility] [place] 2] Immature Granulocytes 1 % 01/13/2024 7:21 AM CDT [facility] [place]NOTE 2] Absolute Neutrophils 4.9 1.8 - 7.7 K/[facility] 01/13/2024 7:21 AM CDT [facility]NOTE 2] Absolute Lymphocytes 1.6 1.0 - 4.0 K/[facility] 01/13/2024 7:21 AM CDT [facility]NOTE 2] Absolute Monocytes 0.4 0.3 - 0.9 K/[facility] 01/13/2024 7:21 AM CDT [facility] 2] Absolute Eosinophils 0.2 0.0 - 0.5 K/[facility] 01/13/2024 7:21 AM CDT [facility]NOTE 2] Absolute Basophils 0.0 0.0 - 0.3 K/[facility] 01/13/2024 7:21 AM CDT [facility] 2] Absolute Immature Granulocytes 0.1 0.0 - 0.2 K/[facility] 01/13/2024 7:21 AM CDT [facility]] Blood VENOUS BLOOD SPECIMEN / Unknown Venipuncture / Unknown 01/13/2024 7:10 AM CDT 01/13/2024 7:15 AM CDT Narrative [facility] 2] - 01/13/2024 7:21 AM CDT This is an appended report. ??These results have been appended to a previously verified report. Aaron SONG LAB BLOOD ORDERA BLES Performing Organization Address City/[facility]/ZIP Co de Phone Number [address] [address] * NT proBNP (01/13/2024 7:10 AM CDT) NT-proBNP 41 <=125 pg/mL 01/13/2024 7:38 AM CDT [facility] 2] Blood VENOUS BLOOD SPECIMEN / Unknown Venipuncture / Unknown 01/13/2024 7:10 AM CDT 01/13/2024 7:15 AM CDT Aaron JOHNSONR LAB BLOOD ORDERA BLES Performing Organization Address City/[facility]/ZIP Co de Phone Number [address] [place] [address] * TROPONIN I, HIGH SENSITIVITY (01/13/2024 7:10 AM CDT) Troponin I, High Sensitivity <4 <52 ng/L 01/13/2024 7:38 AM CDT [facility] 2] Blood VENOUS BLOOD SPECIMEN / Unknown Venipuncture / Unknown 01/13/2024 7:10 AM CDT 01/13/2024 7:15 AM CDT Aaron Wolfe DO BKR LAB BLOOD ORDERA BLES Performing Organization Address City/[facility]/ZIP Co de Phone Number [address] [address] * Lipase (01/13/2024 7:10 AM CDT) Lipase 19 15 - 77 Units/L 01/13/2024 7:38 AM CDT [facility]NOTE 2] Blood VENOUS BLOOD SPECIMEN / Unknown Venipuncture / Unknown 01/13/2024 7:10 AM CDT 01/13/2024 7:15 AM CDT Aaron Wolfe DO BKR LAB BLOOD ORDERA BLES Performing Organization Address [facility]/ZIP Co de Phone Number [address] [address] * Lactic Acid, Venous (01/13/2024 7:10 AM CDT) Lactate, Venous 1.5 0.0 - 2.0 mmol/L 01/13/2024 7:41 AM CDT [facility] 2] Blood VENOUS BLOOD SPECIMEN / Unknown Venipuncture / Unknown 01/13/2024 7:10 AM CDT 01/13/2024 7:15 AM CDT Aaron Wolfe DO BKR LAB BLOOD ORDERA BLES Performing Organization Address City/[facility]/ZIP Co de Phone Number [address] [address] * Partial Thromboplastin Time (PTT) (01/13/2024 7:10 AM CDT) PTT 30 22 - 32 sec 01/13/2024 7:37 AM CDT [facility] [place]] Blood VENOUS BLOOD SPECIMEN / Unknown Venipuncture / Unknown 01/13/2024 7:10 AM CDT 01/13/2024 7:15 AM CDT Narrative [facility] 2] - 01/13/2024 7:37 AM CDT PTT ??Therapeutic Range: ??45-65 seconds. Aaron Wolfe DO BKR LAB BLOOD ORDERA BLES Performing Organization Address City/[facility]/[place] [address] * Prothrombin Time (INR/PT) (01/13/2024 7:10 AM CDT) Protime- PT 10.3 9.7 - 11.8 sec 01/13/2024 7:37 AM CDT [facility] 2] INR 1.0 01/13/2024 7:37 AM CDT [facility]NOTE 2] Comment:INR Therapeutic Rang e: 2.0 to 3.0 (2.5 to 3.5 recommended for recurrent thrombotic episodes and mechanical prosthetic heart valves.) Blood VENOUS BLOOD SPECIMEN / Unknown Venipuncture / Unknown 01/13/2024 7:10 AM CDT 01/13/2024 7:15 AM CDT Aaron JOHNSONR LAB BLOOD ORDERA BLES Performing Organization Address City/[facility]/ZIP Co de Phone Number [address] [phone] * (ABNORMAL) Comprehensive Metabolic Panel (01/13/2024 7:10 AM CDT) Fasting Status 01/13/2024 7:38 AM CDT [facility] 2] Sodium 138 135 - 145 mmol/L 01/13/2024 7:38 AM CDT [facility]NOTE 2] Potassium 3.6 3.4 - 5.1 mmol/L 01/13/2024 7:38 AM CDT [facility]NOTE 2] Chloride 104 97 - 110 mmol/L 01/13/2024 7:38 AM [facility] Carbon Dioxide 30 21 - 32 mmol/L 01/13/2024 7:38 AM [facility] Anion Gap 8 7 - 19 mmol/L 01/13/2024 7:38 AM [facility] Glucose 143(H) 70 - 99 mg/dL 01/13/2024 7:38 AM [facility] BUN 20 6 - 20 mg/dL 01/13/2024 7:38 AM [facility] Creatinine 1.16(H) 0.51 - 0.95 mg/dL 01/13/2024 7:38 AM [facility] Glomerular Filtration Rate 56(L) >=60 01/13/2024 7:38 AM [facility] Comment:eGFR 30-59 mL/min/1. 73m2 = Moderate decrease in kidney function. Stage 3 CKD (chronic kidney disease) or moderate kidney disease. Estimated GFR calculated using the CKD-EPI-R (2020) equation that does not include race in the creatinine calculation. BUN/Cr 17 7 - 25 01/13/2024 7:38 AM [facility] Calcium 8.9 8.4 - 10.2 mg/dL 01/13/2024 7:38 AM [facility] Bilirubin, Total 0.7 0.2 - 1.0 mg/dL 01/13/2024 7:38 AM [facility] GOT/AST 16 <=37 Units/L 01/13/2024 7:38 AM [facility] GPT/ALT 18 <64 Units/L 01/13/2024 7:38 AM [facility] Alkaline Phosphatase 119(H) 45 - 117 Units/L 01/13/2024 7:38 AM [facility] Albumin 3.0(L) 3.6 - 5.1 g/dL 01/13/2024 7:38 AM [facility] Protein, Total 6.9 6.4 - 8.2 g/dL 01/13/2024 7:38 AM [facility] Globulin 3.9 2.0 - 4.0 g/dL 01/13/2024 7:38 AM CDT [facility] [place] 2[facility] A/G Ratio 0.8(L) 1.0 - 2.4 01/13/2024 7:38 AM CDT [facility]NOTE 2] Blood VENOUS BLOOD SPECIMEN / Unknown Venipuncture / Unknown 01/13/2024 7:10 AM CDT 01/13/2024 7:15 AM CDT Aaron Wolfe DO BKR LAB BLOOD ORDERA BLES Performing Organization Address City/[facility] [place] [address] * (ABNORMAL) C Reactive Protein (01/13/2024 7:10 AM CDT) Pathologist [facility] C-Reactive Protein 89.0(H) <10.0 mg/L 01/13/2024 7:38 AM CDT [facility] 2] Blood VENOUS BLOOD SPECIMEN / Unknown Venipuncture / Unknown 01/13/2024 7:10 AM CDT 01/13/2024 7:15 AM CDT Aaron JOHNSONR LAB BLOOD ORDERA BLES Performing Organization Address [facility] [place] [address] * Electrocardiogram 12-Lead (01/13/2024 7:07 AM CDT) Systolic Blood Pressure 176 MUSE Diastolic Blood Pressure 102 MUSE Ventricular Rate EKG/Min (BPM) 78 MUSE Atrial Rate (BPM) 78 MUSE NV-Interval (MSEC) 198 MUSE QRS-Interval (MSEC) 88 MUSE QT-Interval (MSEC) 382 MUSE QTc 435 MUSE P [place] (Degrees) 41 MUSE R [place] (Degrees) 14 MUSE T [place] (Degrees) 57 MUSE REPORT TEXT Normal sinus rhythm Cannot rule out Anterior infarct , age undetermined Abnormal ECG No previous ECGs available Confirmed by AARON WOLFE DO ([id number]), food expeditor Poonam Allen ([id number]) on 01/13/2024 8:47:49 AM MUSE 01/13/2024 7:07 [...] 1 dose, If an IV and an oral/NV medication are ordered PRN for the same pain severity, administer IV only if patient is NPO/if oral is not tolerated. Given 01/13/2024 7:11 AM CDT 1 mg HYDROmorphone (DILAUDID) injection 1 mg 1 mg ONCE, Intravenous, On Tue01/13/24 at 0832, For 1 dose, If an IV and an oral/NV medication are ordered PRN for the same [...] 1 dose, If an IV and an oral/NV medication are ordered PRN for the same pain severity, administer IV only if patient is NPO/if oral is not tolerated. 0711 (Given - Provid er: Catalina Montero RN) HYDROmorphone (DILAUDID) injection 1 mg (COMPLETED) 1 mg ONCE, Intravenous, On Tue01/13/24 at 0832, For 1 dose, If an IV and an oral/NV medication are ordered PRN for the same [...] 01/13/2024 documented in this encounter Care Teams Prize Fighter Relationship Specialty Start Date End Date Marleni Jung [address] [place] [phone] PCP - General Family Practice 01/09/24 documented as of this encounter
--- OUTSIDE RECORDS SUMMARY | 2024-07-17 03:57 | XMS_ITS | Encounter Summary ---
Author Organization [facility] Address [address] [place] [address]. 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 Not on file Not on file documented as of this encounter Plan of Treatment Not on file documented as of this encounter Procedures Procedure Name Priority Date/Time Associated Diagnosis Comments STRESS TEST (SCAN ORDER) Routine 01/30/2013 documented in this encounter Results * STRESS TEST (01/30/2013) us Documents Scanned SCANNING Final Result [facility] documented in this encounter Visit Diagnoses Not on filedocumented in this encounter Care Teams Leather Piece Inspector Relationship Specialty Start Date End Date None, Provider, PCP - General 03/11/14 documented as of this encounter
--- OUTSIDE RECORDS SUMMARY | 2024-07-17 03:57 | XMS_ITS | Patient Health Record ---
Author Organization [facility] Address [address] [facility] [address] [place] [address] Care Team Providers Care Compressed Gas Tester Name Role Phone Fabiana PAZ, Marleni Primary Care Provider Terrie Lucie Otero Unavailable [phone] Rachael Orona Unavailable [phone] Migration, Provider Unavailable Unavailable Allergies Allergen (clinical drug ingredient) Drug/Non Drug Allergy documented on EMR Reaction Allergy Type Onset Date Status INFLUENZA A (H5N1) VIRUS VACCINE MONOVAL (18 YR +) (uncoded) Unknown Allergy 10/14/2023 Active Substance with sulfonamide structure and antibacterial mechanism of action (substance) SULFA (SULFONAMIDE ANTIBIOTICS) (uncoded) Unknown Allergy 10/14/2023 Active doxycycline Doxycycline Unknown Drug Allergy 10/14/2023 Ac tive Results Component Value Reference Range Notes CBC W/ AUTO DIFF Reviewed date:08/26/2023 12:00:00 AM Interpretation: Performing Lab: Notes/Report: ABSOLUTE BASOPHILS 41 CELLS/UL ABSOLUTE EOSINOPHILS 173 CELLS/UL ABSOLUTE LYMPHOCYTES 2236 CELLS/UL ABSOLUTE MONOCYTES 352 CELLS/UL ABSOLUTE NEUTROPHILS 4099 CELLS/UL BASOPHILS 0.6 % EOSINOPHILS 2.5 % HEMATOCRIT 43.5 % HEMOGLOBIN 14.5 G/DL LYMPHOCYTES 32.4 % MCH 28.6 PG MCHC 33.3 G/DL MCV 85.8 FL MONOCYTES 5.1 % MPV 11.6 FL NEUTROPHILS 59.4 % PLATELET COUNT 227 THOUSAND/UL RDW 14.0 % RED BLOOD CELL COUNT 5.07 MILLION/UL WHITE BLOOD CELL COUNT 6.9 THOUSAND/UL CMP, SERUM OR PLASMA Reviewed date:08/26/2023 12:00:00 AM Interpretation: Performing Lab: Notes/Report: ALBUMIN 4.4 G/DL ALBUMIN/GLOBULIN RATIO 1.6 (CALC) ALKALINE PHOSPHATASE 120 U/L ALT 9 U/L AST 10 U/L BILIRUBIN, TOTAL 0.8 MG/DL BUN/CREATININE RATIO 14 (CALC) CALCIUM 9.2 MG/DL CARBON DIOXIDE 30 MMOL/L CHLORIDE 101 MMOL/L CREATININE 1.06 MG/DL EGFR 62 ML/MIN/1.73M2 GLOBULIN 2.7 G/DL (CALC) GLUCOSE 84 MG/DL POTASSIUM 4.4 MMOL/L PROTEIN, TOTAL 7.1 G/DL SODIUM 139 MMOL/L UREA NITROGEN (BUN) 15 MG/DL FOLATE, SERUM Reviewed date:08/26/2023 12:00:00 AM Interpretation: Performing Lab: Notes/Report: FOLATE, SERUM 21.7 NG/ML HBA1C (HEMOGLOBIN A1C), BERKLEY Manuel Reviewed date:08/26/2023 12:00:00 AM Interpretation: Performing Lab: Notes/Report: HEMOGLOBIN A1C 5.6 % OF TOTAL HGB HEPATIC FUNCTION PANEL, CRISTINA Clarke Reviewed date:08/26/2023 12:00:00 AM Interpretation: Performing Lab: Notes/Report: ALBUMIN 4.4 G/DL ALBUMIN/GLOBULIN RATIO 1.6 (CALC) ALKALINE PHOSPHATASE 120 U/L ALT 9 U/L AST 10 U/L BILIRUBIN, DIRECT 0.1 MG/DL BILIRUBIN, INDIRECT 0.7 MG/DL (CALC) BILIRUBIN, TOTAL 0.8 MG/DL GLOBULIN 2.7 G/DL (CALC) PROTEIN, TOTAL 7.1 G/DL LIPID PANEL, SERUM Reviewed date:08/26/2023 12:00:00 AM Interpretation: Performing Lab: Notes/Report: CHOL/HDLC RATIO 3.8 (CALC) CHOLESTEROL, TOTAL 195 MG/DL HDL CHOLESTEROL 51 MG/DL LDL-CHOLESTEROL 112 MG/DL (CALC) NON HDL CHOLESTEROL 144 MG/DL (CALC) TRIGLYCERIDES 205 MG/DL TSH, SERUM OR PLASMA Reviewed date:08/26/2023 12:00:00 AM Interpretation: Performing Lab: Notes/Report: TSH W/REFLEX TO FT4 1.92 mIU/L VITAMIN D, 25-HYDROXY, TOTAL , SERUM Reviewed date:08/26/2023 12:00:00 AM Interpretation: Performing Lab: Notes/Report: VITAMIN D,25-OH,TOTAL,IA 37 NG/ML Reason For Referral No Information Medications Medication SIG (Take, Route, Frequency, Duration) Notes Start Date End Date Status hydrOXYzine HCl 50 MG TAKE 1 TABLET BY MOUTH EVERY DAY AT BEDTIME for 90 Active Loxapine 10 mg Oral *Pick strength-form from [employer] for eRX* 10/14/2023 Not-Taking buPROPion HCl ER (XL) 300 MG Oral 10/14/2023 Not-Taking metFORMIN HCl ER 500 MG Oral 10/14/2023 Not-Taking hydrOXYzine HCl 10 MG 1 tablet Oral three times a day for 90 days Active QUEtiapine Fumarate ER 300 MG 1 tablet in the evening Oral Once a day for 90 days Active lamoTRIgine 25 MG 2 tablet in the morning Oral once a day for 90 days Active buPROPion HCl ER (SR) 200 MG TAKE 1 TABLET BY MOUTH DAILY for 90 Active Doxepin HCl 25 MG Oral 10/14/2023 N ot-Taking Montelukast Sodium 10 MG Oral 10/14/2023 Active Furosemide 40 MG Oral 10/14/2023 Ac tive Ozempic .25 mg Active Social History Tobacco Use: Social History Observation Description Date Details (start date - stop date) Never Smoker NA - NA Sex Assigned At : Social History Observation Description Sex Assigned At Female Tobacco Control (Standard) Question Answer Notes Tobacco use: Nonsmoker Section Notes: Do you or have you ever smok ed tobacco?: Never smokerHow much tobacco do you smoke?: NoneDo you or have you ever used any other forms of tobacco or nicotine?: NoDo you or have you ever used e-cigarettes or vape?: Never used electronic cigarettesWhat was the date of your most recent tobacco screening?: 10/14/2023Has tobacco cessation counseling been provided?: NoWhat is your level of alcohol consumption?: NoneHow many years have you consumed alcohol?: 0Do you use any illicit or recreational drugs?: NoWhich illicit or recreational drugs have you used?: NoneHave you used IV drugs?: NoWhat is your level of caffeine consumption?: OccasionalEducation and OccupationWhat is the highest grade or level of school you have completed or the highest degree you have received?: High school graduateAre you currently in school?: NoAre you currently employed?: NoWho is your employer?: RetiredMarriage and SexualityWhat is your relationship status?: MarriedAre you sexually active?: YesDo you use protection during sex?: NoHow many children do you have?: 2Home and EnvironmentAre you a caregiver?: NoAre there any guns present in your home?: NoLifestyleDo you use your seat belt or car seat routinely?: YesAdvance DirectiveDo you have an advance directive?: NoDo you have a medical power of corporate associate attorney?: NoPublic Health and TravelHave you been to an area known to be high risk for COVID-19?: NoGender Identity and LGBTQ IdentityGender identity: Identifies as FemaleAssigned sex at : FemaleSexual orientation: Straight or heterosexual Problems Problem Type SNOMED Code ICD Code Onset Dates Problem Status W/U Status Risk Notes Problem Bipolar affective disorder, currently depressed, mild (277167121) Bipolar disorder, current episode depressed, mild (F31.31) 4 Active confirmed Problem Generalized anxiety disorder (00593940) Generalized anxiety disorder (F41.1) 4 Active confirmed Problem Posttraumatic stress disorder (90456762) Post-traumatic stress disorder, chronic (F43.12) 4 Active confirmed Problem Insomnia disorder related to another mental disorder (11808045) Insomnia due to other mental disorder (F51.05) 4 Active confirmed Vital Signs Heart Rate 80 /min 04/27/2024 Blood pressure diastolic 85 mm Hg 04/27/2024 Height-cm 175.26 cm 04/27/2024 Weight-kg 112.4 kg 04/27/2024 Height 69.00 in 04/27/2024 Blood pressure systolic 124 mm Hg 04/27/2024 Weight 247.8 lbs 04/27/2024 BMI 36.59 kg/m2 04/27/2024 Encounters Encounter Location Date Provider Diagnosis [facility] [address] [place] [address] 07/21/2023 Lucie Amaya Bipolar disorder, current episode depressed, mild F31.31 ; Insomnia due to other mental disorder F51.05 ; Post-traumatic stress disorder, chronic F43.12 and Generalized anxiety disorder F41.1 [facility] [address] [place] [address] 08/22/2023 Lucie Amaya Bipolar disorder, current episode depressed, mild F31.31 ; Type 2 diabetes mellitus with unspecified complications E11.8 ; Primary insomnia F51.01 ; Other intermediate project manager (current) drug therapy Z79.899 ; Insomnia due to other mental disorder F51.05 ; Generalized anxiety disorder F41.1 ; Other specified nonscarring hair loss L65.8 ; Hyperlipidemia, unspecified E78.5 ; Abnormal weight gain R63.5 and Post-traumatic stress disorder, chronic F43.12 [facility] [facility] [address] [address] 09/12/2023 Lucie Amaya Other intermediate project manager (current) drug therapy Z79.899 ; Other specified nonscarring hair loss L65.8 ; Bipolar disorder, current episode depressed, mild F31.31 ; Generalized anxiety disorder F41.1 ; Abnormal weight gain R63.5 ; Hyperlipidemia, unspecified E78.5 ; Type 2 diabetes mellitus with unspecified complications E11.8 ; Insomnia due to other mental disorder F51.05 and Primary insomnia F51.01 [facility] [address] [address] 10/14/2023 Lucie Amaya Generalized anxiety disorder F41.1 ; Bipolar disorder, current episode depressed, mild F31.31 ; Other specified nonscarring hair loss L65.8 ; Other intermediate project manager (current) drug therapy Z79.899 ; Post-traumatic stress disorder, chronic F43.12 ; Hyperlipidemia, unspecified E78.5 ; Primary insomnia F51.01 ; Type 2 diabetes mellitus with unspecified complications E11.8 ; Insomnia due to other mental disorder F51.05 and Abnormal weight gain R63.5 [facility] [address] [address] 01/26/2024 Lucie Amaya Bipolar disorder, current episode depressed, mild F31.31 ; Generalized anxiety disorder F41.1 ; Post-traumatic stress disorder, chronic F43.12 and Insomnia due to other mental disorder F51.05 [facility] [address] [address] 04/27/2024 Lucie Amaya Bipolar disorder, current episode depressed, mild F31.31 ; Generalized anxiety disorder F41.1 ; Post-traumatic stress disorder, chronic F43.12 and Insomnia due to other mental disorder F51.05 [facility] [address] [facility] [address] [place] [address] 07/19/2023 Provider [facility], [facility] [address] [place] [address] 07/29/2023 Provider [facility], [facility] [address] [facility] [address] [place] [address] 08/19/2023 Provider [facility], [facility] [address] [facility] [address] [place] [address] 08/21/2023 Provider [facility], [facility] [address] [facility] [address] [place] [address] 12/03/2023 Provider [facility], [facility] [address] [facility] [address] [place] [address] 12/04/2023 [facility], [facility] [address] [address] 02/02/2024 Lucie Amaya [facility], [facility] [address] [address] 05/16/2024 Lucie Amaya [facility], [facility] [address] [address] 05/16/2024 Lucie Amaya Bipolar disorder, current episode depressed, mild F31.31 [facility] [address] [address] 05/18/2024 Lucie Amaya Bipolar disorder, current episode depressed, mild F31.31 [facility] [address] [address] 05/18/2024 Lucie Amaya [facility], [facility] [address] [address] 07/04/2024 Lucie Amaya Assessments Encounter Date Diagnosis (ICD Code) Assessment Notes Treatment Notes Treatment Clinical Notes Section Notes 07/21/2023 Bipolar disorder, current episode depressed, mild (ICD-10 - F31.31) 07/21/2023 Generalized anxiety disorder (ICD-10 - F41.1) 07/21/2023 Post-traumatic stress disorder, chronic (ICD-10 - F43.12) 07/21/2023 Insomnia due to other mental disorder (ICD-10 - F51.05) 08/22/2023 Type 2 diabetes mellitus with unspecified complications (ICD-10 - E11.8) 08/22/2023 Hyperlipidemia, unspecified (ICD-10 - E78.5) 08/22/2023 Bipolar disorder, current episode depressed, mild (ICD-10 - F31.31) 08/22/2023 Generalized anxiety disorder (ICD-10 - F41.1) 08/22/2023 Post-traumatic stress disorder, chronic (ICD-10 - F43.12) 08/22/2023 Primary insomnia (ICD-10 - F51.01) 08/22/2023 Insomnia due to other mental disorder (ICD-10 - F51.05) 08/22/2023 Other specified nonscarring hair loss (ICD-10 - L65.8) 08/22/2023 Abnormal weight gain (ICD-10 - R63.5) 08/22/2023 Other halfway (current) drug therapy (ICD-10 - Z79.899) 09/12/2023 Type 2 diabetes mellitus with unspecified complications (ICD-10 - E11.8) 09/12/2023 Hyperlipidemia, unspecified (ICD-10 - E78.5) 09/12/2023 Bipolar disorder, current episode depressed, mild (ICD-10 - F31.31) 09/12/2023 Generalized anxiety disorder (ICD-10 - F41.1) 09/12/2023 Primary insomnia (ICD-10 - F51.01) 09/12/2023 Insomnia due to other mental disorder (ICD-10 - F51.05) 09/12/2023 Other specified nonscarring hair loss (ICD-10 - L65.8) 09/12/2023 Abnormal weight gain (ICD-10 - R63.5) 09/12/2023 Other intermediate project manager (current) drug therapy (ICD-10 - Z79.899) 10/14/2023 Type 2 diabetes mellitus with unspecified complications (ICD-10 - E11.8) 10/14/2023 Hyperlipidemia, unspecified (ICD-10 - E78.5) 10/14/2023 Bipolar disorder, current episode depressed, mild (ICD-10 - F31.31) 10/14/2023 Generalized anxiety disorder (ICD-10 - F41.1) 10/14/2023 Post-traumatic stress disorder, chronic (ICD-10 - F43.12) 10/14/2023 Primary insomnia (ICD-10 - F51.01) 10/14/2023 Insomnia due to other mental disorder (ICD-10 - F51.05) 10/14/2023 Other specified nonscarring hair loss (ICD-10 - L65.8) 10/14/2023 Abnormal weight gain (ICD-10 - R63.5) 10/14/2023 Other intermediate project manager (current) drug therapy (ICD-10 - Z79.899) 01/26/2024 Bipolar disorder, current episode depressed, mild (ICD-10 - F31.31) 1. Bipolar I disorder, most recent episode depression - hx Caplyta improved depression (chronic psychosis and paranoia)- too expensive discuss Seroquel for Bipolar educated on rx Seroquel ER 300 mg at bedtime- continue educated on metabolic and movement d/o educated on all medications, benefits, side effects and risk, and educated on depression, anxiety, and ADHD, mood d/o and educated on compliance of medications, metabolic and movement d/o education appointment's, continue therapy discussion with patient about course of treatmentand patient instructions. GDR 07/21/23 tolerated Lamotrigine 50 mg twice a day r/o hair loss- educated on rx - patient reported hair loss from hair dye possible and improved recently monitor depression s/s educated patient continue therapy AIMS=1 10/19/22 foot surgery lt foot and has issue with foot/ankle r/o movement schedule to see PCP and labsF31.31: Bipolar disorder, current episode depressed, mildlamotrigine 25 mg tablet - Take 2 tablet(s) twice a day by oral route as directed for 30 days, for depression. Qty: (120) tablet Refills: 2 Pharmacy: [facility] #[id number] 2. Generalized anxiety disorder -Hydroxyzine 50 mg at bedtime as needed for anxiety and panic no refill neededHydroxyzine 10 mg three times a day as needed- no refill needed Bupropion SR 200 mg in amF41.1: Generalized anxiety disordermedical issuses 3. Chronic post-traumatic stress disorder -continue dibwlgoF82.12: Post-traumatic stress disorder, chronic 4. Insomnia disorder related to another mental disorder -Melatonin 3 mg at bedtime as needed OTCF51.05: Insomnia due to other mental disorder 5. Long-term drug therapy, Bipolar Disorder: Care Instructions material was published, Learning About How to Get Help During a Mental Health Crisis material was published, Learning About Movement Disorders From Antipsychotic Medicines material was published, Learning About Mood Disorders material was published 1. Bipolar I disorder, most recent episode depression - hx Caplyta improved depression (chronic psychosis and paranoia)- too expensive discuss Seroquel for Bipolar educated on rx Seroquel ER 300 mg at bedtime- continue educated on metabolic and movement d/o educated on all medications, benefits, side effects and risk, and educated on depression, anxiety, and ADHD, mood d/o and educated on compliance of medications, metabolic and movement d/o education appointment's, continue therapy discussion with patient about course of treatmentand patient instructions. GDR 07/21/23 tolerated Lamotrigine 50 mg twice a day r/o hair loss- educated on rx - patient reported hair loss from hair dye possible and improved recently monitor depression s/s educated patient continue therapy AIMS=1 10/19/22 foot surgery lt foot and has issue with foot/ankle r/o movement schedule to see PCP and labs F31.31: Bipolar disorder, current episode depressed, mildlamotrigine 25 mg tablet - Take 2 tablet(s) twice a day by oral route as directed for 30 days, for depression. Qty: (120) tablet Refills: 2 Pharmacy: [facility] #[id number] 2. Generalized anxiety disorder -Hydroxyzine 50 mg at bedtime as needed for anxiety and panic no refill needed Hydroxyzine 10 mg three times a day as needed- no refill needed Bupropion SR 200 mg in amF41.1: Generalized anxiety disorder medical issuses 3. Chronic post-traumatic stress disorder -continue peglwfcB23.12: Post-traumatic stress disorder, chronic 4. Insomnia disorder related to another mental disorder -Melatonin 3 mg at bedtime as needed OTCF51.05: Insomnia due to other mental disorder 5. Long-term drug therapy 01/26/2024 Generalized anxiety disorder (ICD-10 - F41.1) Learning About Generalized Anxiety Disorder material was published, Generalized Anxiety Disorder: Care Instructions material was published, Learning About Anxiety Disorders material was published 1. Bipolar I disorder, most recent episode depression - hx Caplyta improved depression (chronic psychosis and paranoia)- too expensive discuss Seroquel for Bipolar educated on rx Seroquel ER 300 mg at bedtime- continue educated on metabolic and movement d/o educated on all medications, benefits, side effects and risk, and educated on depression, anxiety, and ADHD, mood d/o and educated on compliance of medications, metabolic and movement d/o education appointment's, continue therapy discussion with patient about course of treatmentand patient instructions. GDR 07/21/23 tolerated Lamotrigine 50 mg twice a day r/o hair loss- educated on rx - patient reported hair loss from hair dye possible and improved recently monitor depression s/s educated patient continue therapy AIMS=1 10/19/22 foot surgery lt foot and has issue with foot/ankle r/o movement schedule to see PCP and labs F31.31: Bipolar disorder, current episode depressed, mildlamotrigine 25 mg tablet - Take 2 tablet(s) twice a day by oral route as directed for 30 days, for depression. Qty: (120) tablet Refills: 2 Pharmacy: [facility] #[id number] 2. Generalized anxiety disorder -Hydroxyzine 50 mg at bedtime as needed for anxiety and panic no refill needed Hydroxyzine 10 mg three times a day as needed- no refill needed Bupropion SR 200 mg in amF41.1: Generalized anxiety disorder medical issuses 3. Chronic post-traumatic stress disorder -continue ewrihpbM58.12: Post-traumatic stress disorder, chronic 4. Insomnia disorder related to another mental disorder -Melatonin 3 mg at bedtime as needed OTCF51.05: Insomnia due to other mental disorder 5. Long-term drug therapy 04/27/2024 Bipolar disorder, current episode depressed, mild (ICD-10 - F31.31) 1. Bipolar I disorder, most recent episode depression - choronic psychosis, paranoia hx Caplyta improved depression (chronic psychosis and paranoia)- too expensive discuss Seroquel for Bipolar educated on rx Seroquel ER 300 mg at bedtime- continue- Discuss increase dose for psychosis, depression, anxiety, paranoia, and help with sleep- patient prefer not to have increase educated on metabolic and movement d/o educated on all medications, benefits, side effects and risk, and educated on depression, anxiety, and ADHD, mood d/o and educated on compliance of medications, metabolic and movement d/o education appointment's, continue therapy discussion with patient about course of treatmentand patient instructions. GDR 07/21/23 tolerated Lamotrigine 50 mg twice a day r/o hair loss- educated on rx - patient reported hair loss from hair dye possible and improved recently monitor depression s/s educated patient continue therapy AIMS=1 10/19/22 foot surgery lt foot and has issue with foot/ankle r/o movement AIMS= 1 04/27/24 bridge schedule to see PCP and labs 2. Generalized anxiety disorder -Hydroxyzine 50 mg at bedtime as needed for anxiety and panic no refill needed Hydroxyzine 10 mg three times a day as needed- no refill needed Bupropion SR 200 mg in am medical issuses 3. Chronic post-traumatic stress disorder -continue therapy 4. Insomnia disorder related to another mental disorder -Melatonin 3 mg at bedtime as needed OTC 5. Long-term drug therapy 05/16/2024 Bipolar disorder, current episode depressed, mild (ICD-10 - F31.31) 05/18/2024 Bipolar disorder, current episode depressed, mild (ICD-10 - F31.31) pateint reported Lamotrigine 50 mg twice a day 04/27/2024 Generalized anxiety disorder (ICD-10 - F41.1) Learning About Generalized Anxiety Disorder material was published, Generalized Anxiety Disorder: Care Instructions material was published, Learning About Anxiety Disorders material was published 1. Bipolar I disorder, most recent episode depression - choronic psychosis, paranoia hx Caplyta improved depression (chronic psychosis and paranoia)- too expensive discuss Seroquel for Bipolar educated on rx Seroquel ER 300 mg at bedtime- continue- Discuss increase dose for psychosis, depression, anxiety, paranoia, and help with sleep- patient prefer not to have increase educated on metabolic and movement d/o educated on all medications, benefits, side effects and risk, and educated on depression, anxiety, and ADHD, mood d/o and educated on compliance of medications, metabolic and movement d/o education appointment's, continue therapy discussion with patient about course of treatmentand patient instructions. GDR 07/21/23 tolerated Lamotrigine 50 mg twice a day r/o hair loss- educated on rx - patient reported hair loss from hair dye possible and improved recently monitor depression s/s educated patient continue therapy AIMS=1 10/19/22 foot surgery lt foot and has issue with foot/ankle r/o movement AIMS= 1 04/27/24 bridge schedule to see PCP and labs 2. Generalized anxiety disorder -Hydroxyzine 50 mg at bedtime as needed for anxiety and panic no refill needed Hydroxyzine 10 mg three times a day as needed- no refill needed Bupropion SR 200 mg in am medical issuses 3. Chronic post-traumatic stress disorder -continue therapy 4. Insomnia disorder related to another mental disorder -Melatonin 3 mg at bedtime as needed OTC 5. Long-term drug therapy 01/26/2024 Post-traumatic stress disorder, chronic (ICD-10 - F43.12) Post-Traumatic Stress Disorder (PTSD): Care Instructions material was published 1. Bipolar I disorder, most recent episode depression - hx Caplyta improved depression (chronic psychosis and paranoia)- too expensive discuss Seroquel for Bipolar educated on rx Seroquel ER 300 mg at bedtime- continue educated on metabolic and movement d/o educated on all medications, benefits, side effects and risk, and educated on depression, anxiety, and ADHD, mood d/o and educated on compliance of medications, metabolic and movement d/o education appointment's, continue therapy discussion with patient about course of treatmentand patient instructions. GDR 07/21/23 tolerated Lamotrigine 50 mg twice a day r/o hair loss- educated on rx - patient reported hair loss from hair dye possible and improved recently monitor depression s/s educated patient continue therapy AIMS=1 10/19/22 foot surgery lt foot and has issue with foot/ankle r/o movement schedule to see PCP and labs F31.31: Bipolar disorder, current episode depressed, mildlamotrigine 25 mg tablet - Take 2 tablet(s) twice a day by oral route as directed for 30 days, for depression. Qty: (120) tablet Refills: 2 Pharmacy: [facility] #[id number] 2. Generalized anxiety disorder -Hydroxyzine 50 mg at bedtime as needed for anxiety and panic no refill needed Hydroxyzine 10 mg three times a day as needed- no refill needed Bupropion SR 200 mg in amF41.1: Generalized anxiety disorder medical issuses 3. Chronic post-traumatic stress disorder -continue yazhfbyP49.12: Post-traumatic stress disorder, chronic 4. Insomnia disorder related to another mental disorder -Melatonin 3 mg at bedtime as needed OTCF51.05: Insomnia due to other mental disorder 5. Long-term drug therapy 01/26/2024 Insomnia due to other mental disorder (ICD-10 - F51.05) 1. Bipolar I disorder, most recent episode depression - hx Caplyta improved depression (chronic psychosis and paranoia)- too expensive discuss Seroquel for Bipolar educated on rx Seroquel ER 300 mg at bedtime- continue educated on metabolic and movement d/o educated on all medications, benefits, side effects and risk, and educated on depression, anxiety, and ADHD, mood d/o and educated on compliance of medications, metabolic and movement d/o education appointment's, continue therapy discussion with patient about course of treatmentand patient instructions. GDR 07/21/23 tolerated Lamotrigine 50 mg twice a day r/o hair loss- educated on rx - patient reported hair loss from hair dye possible and improved recently monitor depression s/s educated patient continue therapy AIMS=1 10/19/22 foot surgery lt foot and has issue with foot/ankle r/o movement schedule to see PCP and labs F31.31: Bipolar disorder, current episode depressed, mildlamotrigine 25 mg tablet - Take 2 tablet(s) twice a day by oral route as directed for 30 days, for depression. Qty: (120) tablet Refills: 2 Pharmacy: [facility] #[id number] 2. Generalized anxiety disorder -Hydroxyzine 50 mg at bedtime as needed for anxiety and panic no refill needed Hydroxyzine 10 mg three times a day as needed- no refill needed Bupropion SR 200 mg in amF41.1: Generalized anxiety disorder medical issuses 3. Chronic post-traumatic stress disorder -continue tacsrsyY58.12: Post-traumatic stress disorder, chronic 4. Insomnia disorder related to another mental disorder -Melatonin 3 mg at bedtime as needed OTCF51.05: Insomnia due to other mental disorder 5. Long-term drug therapy 04/27/2024 Post-traumatic stress disorder, chronic (ICD-10 - F43.12) Post-Traumatic Stress Disorder (PTSD): Care Instructions material was published 1. Bipolar I disorder, most recent episode depression - choronic psychosis, paranoia hx Caplyta improved depression (chronic psychosis and paranoia)- too expensive discuss Seroquel for Bipolar educated on rx Seroquel ER 300 mg at bedtime- continue- Discuss increase dose for psychosis, depression, anxiety, paranoia, and help with sleep- patient prefer not to have increase educated on metabolic and movement d/o educated on all medications, benefits, side effects and risk, and educated on depression, anxiety, and ADHD, mood d/o and educated on compliance of medications, metabolic and movement d/o education appointment's, continue therapy discussion with patient about course of treatmentand patient instructions. GDR 07/21/23 tolerated Lamotrigine 50 mg twice a day r/o hair loss- educated on rx - patient reported hair loss from hair dye possible and improved recently monitor depression s/s educated patient continue therapy AIMS=1 10/19/22 foot surgery lt foot and has issue with foot/ankle r/o movement AIMS= 1 04/27/24 bridge schedule to see PCP and labs 2. Generalized anxiety disorder -Hydroxyzine 50 mg at bedtime as needed for anxiety and panic no refill needed Hydroxyzine 10 mg three times a day as needed- no refill needed Bupropion SR 200 mg in am medical issuses 3. Chronic post-traumatic stress disorder -continue therapy 4. Insomnia disorder related to another mental disorder -Melatonin 3 mg at bedtime as needed OTC 5. Long-term drug therapy 04/27/2024 Insomnia due to other mental disorder (ICD-10 - F51.05) 1. Bipolar I disorder, most recent episode depression - choronic psychosis, paranoia hx Caplyta improved depression (chronic psychosis and paranoia)- too expensive discuss Seroquel for Bipolar educated on rx Seroquel ER 300 mg at bedtime- continue- Discuss increase dose for psychosis, depression, anxiety, paranoia, and help with sleep- patient prefer not to have increase educated on metabolic and movement d/o educated on all medications, benefits, side effects and risk, and educated on depression, anxiety, and ADHD, mood d/o and educated on compliance of medications, metabolic and movement d/o education appointment's, continue therapy discussion with patient about course of treatmentand patient instructions. GDR 07/21/23 tolerated Lamotrigine 50 mg twice a day r/o hair loss- educated on rx - patient reported hair loss from hair dye possible and improved recently monitor depression s/s educated patient continue therapy AIMS=1 10/19/22 foot surgery lt foot and has issue with foot/ankle r/o movement AIMS= 1 04/27/24 bridge schedule to see PCP and labs 2. Generalized anxiety disorder -Hydroxyzine 50 mg at bedtime as needed for anxiety and panic no refill needed Hydroxyzine 10 mg three times a day as needed- no refill needed Bupropion SR 200 mg in am medical issuses 3. Chronic post-traumatic stress disorder -continue therapy 4. Insomnia disorder related to another mental disorder -Melatonin 3 mg at bedtime as needed OTC 5. Long-term drug therapy 01/26/2024 Other Quetiapine Exte nded Release Oral Tablet (QUETIAPINE SUSTAINED-RELEASE - ORAL) material was published, Lamotrigine Oral Tablet (LAMOTRIGINE - ORAL) material was published, Bupropion Extended Release Oral Tablet (BUPROPION SUSTAINED-RELEASE (ANTIDEPRESSANT) - ORAL) material was published 1. Bipolar I disorder, most recent episode depression - hx Caplyta improved depression (chronic psychosis and paranoia)- too expensive discuss Seroquel for Bipolar educated on rx Seroquel ER 300 mg at bedtime- continue educated on metabolic and movement d/o educated on all medications, benefits, side effects and risk, and educated on depression, anxiety, and ADHD, mood d/o and educated on compliance of medications, metabolic and movement d/o education appointment's, continue therapy discussion with patient about course of treatmentand patient instructions. GDR 07/21/23 tolerated Lamotrigine 50 mg twice a day r/o hair loss- educated on rx - patient reported hair loss from hair dye possible and improved recently monitor depression s/s educated patient continue therapy AIMS=1 10/19/22 foot surgery lt foot and has issue with foot/ankle r/o movement schedule to see PCP and labs F31.31: Bipolar disorder, current episode depressed, mildlamotrigine 25 mg tablet - Take 2 tablet(s) twice a day by oral route as directed for 30 days, for depression. Qty: (120) tablet Refills: 2 Pharmacy: [facility] #[id number] 2. Generalized anxiety disorder -Hydroxyzine 50 mg at bedtime as needed for anxiety and panic no refill needed Hydroxyzine 10 mg three times a day as needed- no refill needed Bupropion SR 200 mg in amF41.1: Generalized anxiety disorder medical issuses 3. Chronic post-traumatic stress disorder -continue apwzjpnP65.12: Post-traumatic stress disorder, chronic 4. Insomnia disorder related to another mental disorder -Melatonin 3 mg at bedtime as needed OTCF51.05: Insomnia due to other mental disorder 5. Long-term drug therapy Plan Of Treatment Next Appt Details Provider Name:Lucie Amaya , 07/30/2024 09:45:00 AM, [address], [facility], [address], [place], [address], Insurance Providers Payer Name Payer Address Payer Phone Subscriber Number Group Number Insured Name Patient Relationship to Insured Coverage Start Date Coverage End Date [employer] [address] [place] [phone] [id number] MAKENNA OSMAN Self - patient is the insured Medical (General) History Medical History History ICD Code Problems: Bipolar I disorder, most recen t episode depression Chronic post-traumatic stress disorder Generalized anxiety disorder Insomnia disorder related to another men luis f disorder Long-term drug therapy Severe bipolar disorder with psychotic f eatures Severe mixed bipolar I disorder , Endometrial Ablation Other Removal of ga llbladder cyst liver and kidney Surgical History Surgery Date(Month/Year) Endometrial ablation (08581) Other Removal of gallbladder (43384) Any surgical history cyst liver and kidney
--- OUTSIDE RECORDS SUMMARY | 2024-07-17 03:57 | XMS_ITS | Encounter Summary ---
Author Organization [facility] [place] [facility] Address [address] [place] [address]. [place], [place] [address] [place] [address] Care Team Providers Care Reading Teacher Name Role Phone None, Provider MD Primary Care Provider Unavaila ble Reason for Visit * Reason Comments Respiratory Symptoms c/o cough and cold sx since Tuesday08/23/14. 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 Not on file Not on file documented as of this encounter Last Filed Vital Signs Vital Sign Reading Time Taken Comments Blood Pressure 128/60 08/28/2014 9:44 AM DENTAL APPLIANCE FIXER Pulse 83 08/28/2014 9:44 AM DENTAL APPLIANCE FIXER Temperature 36.5 ??C (97.7 ??F) 08/28/2014 8:22 AM CS T Respiratory Rate 20 08/28/2014 8:22 AM DENTAL APPLIANCE FIXER Oxygen Saturation 94% 08/28/2014 9:44 AM DENTAL APPLIANCE FIXER Inhaled Oxygen Concentration - - Weight 116.5 kg (256 lb 13.4 oz) 08/28/2014 8:22 AM DENTAL APPLIANCE FIXER Height 172.7 cm (5' 8 ) 08/28/2014 8:22 AM DENTAL APPLIANCE FIXER Body Mass Index 39.05 08/28/2014 8:22 AM DENTAL APPLIANCE FIXER documented in this encounter Discharge Instructions * Discharge Instructions* Joy Ray, - 08/28/2014 10:09 AM DENTAL APPLIANCE FIXER Images from the original note were not [...] 1 Inhaler, Refills: 0 Class: Print Pharmacy: [id number] (Ph #: [phone]) doxycycline hyclate 100 MG capsule Take 1 capsule by mouth 2 (two) times daily for 10 days. Qty: 20 capsule, Refills: 0 Class: Print Pharmacy: [facility] #[id number] [place] [id number] [facility] (Ph #: [phone]) predniSONE 20 MG tablet Take 3 tablets by mouth daily for 5 days. Qty: 15 tablet, Refills: 0 Class: Print Pharmacy: [facility] #[id number] - [place] [address] [facility] (Ph #: [phone]) Take probiotics over the counter starting today [...] hard to breathe or swallow. ?? 2013 [employer] Information is for End User's use only and may not be sold, redistributed or otherwise used for commercial purposes. All illustrations and images included in CareNotes?? are the copyrighted property of [employer], [employer]. or [employer]. The above information is an gericare aide only. It is not intended as medical advice for individual conditions or treatments. Talk to your doctor, nurse or pharmacist before following any medical regimen to see if it is safe and effective for you. [place] APPLIANCE FIXER documented in this encounter Medications at Time [...] evaluation. DIAGNOSITICS: Joy Ray DO 08/28/14 1009 [place] APPLIANCE FIXER documented in this encounter Plan of Treatment [...] Tue08/28/14 at 0915 Given 08/28/2014 9:04 AM DENTAL APPLIANCE FIXER 2.5 mg albuterol (PROVENTIL) (2.5 MG/3ML) 0.083% nebulizer solution 2.5 mg 2.5 mg, Nebulization, Once, 1 dose, On Tue08/28/14 at 1030 Given 08/28/2014 10:31 AM DENTAL APPLIANCE FIXER 2.5 mg ipratropium-albuterol (DUONEB) 0.5-2.5 (3) MG/3ML nebulizer solution 3 mL 3 mL, Nebulization, Once, 1 dose, On Tue08/28/14 at 0915 Given 08/28/2014 9:00 AM DENTAL APPLIANCE FIXER 3 mLs predniSONE (DELTASONE) tablet 60 mg 60 mg, Oral, Once, 1 dose, On Tue08/28/14 at 0915 Given 08/28/2014 8:57 AM DENTAL APPLIANCE FIXER 60 mg documented in this encounter Active and Recently Administered Medications Times are shown in DENTAL APPLIANCE FIXER. Scheduled Medication Order 08/26/2014 08/27/2014 08/28/2014 albuterol [...] RN) documented in this encounter Care Teams Reading Teacher Relationship Specialty Start Date End Date None, Provider, PCP - General 03/11/14 documented as of this encounter
--- OUTSIDE RECORDS SUMMARY | 2024-07-17 03:57 | XMS_ITS | Encounter Summary ---
Author Organization [facility] Address [address] [place] [address]. [place], [place] [id number] [place] [address] Care Team Providers Care Contact Lens Inspector Name Role Phone None, Provider Primary Care Provider Unavaila ble Reason for Referral * (Emergency) - Closed Specialty Diagnoses / Procedures Referred By Contac t Referred To Contact Procedures CT ABD+PEL W CON Nika Anderson MD [address] [place] [phone] Phone: tel: fax: Referral ID Status Reason Start Date Expiration Date Visits Re quested Visits Authorized [id number] Closed 03/16/2014 04/16/2015 1 1 Reason for Visit * Reason Comments Abdominal Pain Encounter Details Date Type Department Care Team (Late st Contact Info) Description 03/16/2014 1:11 AM CDT - 03/16/2014 5:55 AM CDT Emergency [facility] [address] [place] [address] Nika Anderson MD [address] [place] [id number] Abdominal Pain Discharge Disposition: Home or [...] you take your medicine. Copyright ?? 2010. [employer]. All rights reserved. Information is for End User's use only andmay not be sold, redistributed or otherwise used for commercial purposes. The above information is an medicaid billing specialist only. It is not intended as medical [...] denies recent travel. Although moved up to [place] a few months ago. 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 Smoking [...] ECG 12-LEAD Result Value Range EKG Value: [facility] ED Test Date: 2014-03-16 Pat Name: VANGIE YUEN Department: 55 Room: [place]SA Gender: Female Coffee Maker: [id number] : [id number] Requested By: NIKA ANDERSON Order Number: [id number] Reading MD: Nika Anderson Measurements Intervals [place] Rate: 82 P: 31 AK: 190 QRS: 7 QRSD: 98 T: 31 [...] AM CDT) SPEC DESCRIPTION URINE, CLEAN VOIDED [facility] SPECIAL REQUESTS NO SPECIAL REQUEST [facility] CULTURE RESULT NO GROWTH 1 DAY [facility] REPORT STATUS FINAL 03/17/2014 [facility] URINE, CLEAN VOIDED 03/16/2014 5:31 AM CDT 03/16/2014 7:53 AM CDT us Nika Anderson MD MICROBIOLOGY - GENERAL ORDERABLE S Final Result [facility] [address] [place] [address] * CT ABD+PEL W CON (03/16/2014 4:29 [...] (03/16/2014 1:57 AM CDT) COLOR (U) YELLOW [facility] TRANSPARENCY HAZY(A) CLER [facility] SPECIFIC GRAVITY (U) 1.015 1.001 - 1.035 [facility] U PH 5.0 5.0 - 9.0 [facility] PROTEIN (U) NEGATIVE NEG mg/dL [facility] GLUCOSE (U) NEGATIVE NEG mg/dL [facility] KETONES MG/DL (U) NEGATIVE NEG mg/dL [facility] BILIRUBIN (U) NEGATIVE NEG [facility] U BLOOD NEGATIVE NEG [facility] UROBILINOGEN <2.0 <2.0 mg/dL [facility] NITRITES NEGATIVE NEG [facility] LEUK ESTERASE (U) TRACE(A) NEG [facility] COLLECTION METHOD URINE, CLEAN VOIDED [facility] RBC/HPF 0-2 ZT2 /hpf [facility] WBC/HPF 0-2 ZT2 /hpf [facility] EPI/HPF 3-5(A) ZT2 /hpf [facility] BACTERIA (U) FEW [facility] MUCUS PRESENT [facility] Urine specimen (specimen) (URINE, CLEAN VOIDED) 03/16/2014 1:57 AM CDT 03/16/2014 2:02 AM CDT Nika Anderson MD URINE ORDERABLES Final Result [facility] [address] [place] [address] * XR CHEST PORTABLE (03/16/2014 1:45 AM [...] Electrocardiogram, 12-lead (03/16/2014 1:34 AM CDT) Pathologist [facility] EKG <!--EPICS--><H 3> ?[facility]</H3>
?

<b>Mary Ellen t Date: ?2014-03-16</ b>
Pat Name: ? VANGIE YUEN ? Department: ?? 55
? Room: ? [place]
Gender: ? <b><font color='#[id number] '>Female</font ></b> ? Coffee Maker: ?? [id number]
: ?1970 ? Requested By: NIKA ANDERSON
Order Number: [id number] ? Reading MD: ?? Nika Anderson

< b>Measurements </b>
Interv als ?[place] ?
Rate: ? 82 ? P: ?31
AK: ? 190 ?QRS: ?7
QRSD: ? 98 ? T: ?31
QT: ? 403 ?
QTc: ?473 ?

<b>I nterpretive Statements</b>
SINUS RHYTHM

<!--EPICE-- > [facility] RADIOLOGY 03/16/2014 1:34 AM CDT Nika Anderson MD ECG ORDERABLES Final Result Performing Organization Address [facility]/ZIP Co de Phone Number [facility] RADIOLOGY * LIPASE (03/16/2014 1:29 AM CDT) Pathologist [facility] LIPASE 85 73 - 393 U/L [facility] I.V. SITE 03/16/2014 1:29 AM CDT 03/16/2014 1:34 AM CDT Nika Anderson MD LABORATORY Final Result Performing Organization Address [facility] Co de Phone Number [facility] [address] [place] [address] * TROPONIN, QUANT (03/16/2014 1:29 AM CDT) Pathologist [facility] TROPONIN I <0.02 <0.04 ng/mL [facility] Comment: Guidelines: Normal <0.04 ng/mL. Indeterminate 0.04 to 0.29 ng/mL. Serial measurements may help assess possibility of myocardial injury. Levels equal or >0.30 ng/mL are consistent with myocardial injury. I.V. SITE 03/16/2014 1:29 AM CDT 03/16/2014 1:34 AM CDT Nika Anderson MD LABORATORY Final Result Performing Organization Address [facility] Co de Phone Number [facility] [address] [place] [address] * (ABNORMAL) CPKMB (03/16/2014 1:29 AM CDT) CK-MB <0.5(L) 0.5 - 3.6 ng/mL [facility] I.V. SITE 03/16/2014 1:29 AM CDT 03/16/2014 1:34 AM CDT us Nika Anderson MD LABORATORY Final Result Performing Organization Address [facility]/ZIP Co de Phone Number [facility] [address] [place] [phone] * CPK (03/16/2014 1:29 AM CDT) CPK 86 26 - 192 U/L [facility] I.V. SITE 03/16/2014 1:29 AM CDT 03/16/2014 1:34 AM CDT us Nika Anderson MD LABORATORY Final Result Performing Organization Address [facility] Co de Phone Number [facility] [address] [place] [address] * (ABNORMAL) COMPREHENSIVE METABOLIC PANEL (03/16/2014 1:29 AM CDT) Pathologist [facility] SODIUM S/P/B 140 136 - 145 mmol/L [facility] POTASSIUM S/P/B 3.3(L) 3.5 - 5.1 mmol/L [facility] CHLORIDE S/P/B 105 98 - 107 mmol/L [facility] CO2 27 21 - 32 mmol/L [facility] ANION GAP 8 5 - 15 mmol/L [facility] BUN 10 7 - 18 mg/dL [facility] CREATININE S/P/B 1.0 0.6 - 1.0 mg/dL [facility] BUN CREATININE RATIO 10.0 10 - 20 :1 [facility] EGFR NON-AFR. AMER. >60 >60 mls/min. [facility] EGFR AFR. AMER. >60 >60 mls/min. [facility] GLUCOSE 131(H) 70 - 99 mg/dL [facility] CALCIUM S/P/B 8.8 8.5 - 10.1 mg/dL [facility] TOTAL PROTEIN S/P/B 7.2 6.4 - 8.5 g/dL [facility] ALBUMIN S/P/B 3.2 3.1 - 5.0 g/dL [facility] BILIRUBIN TOTAL S/P/B 0.4 0.2 - 1.0 mg/dL [facility] ALKALINE PHOSPHATASE S/P/B 97 45 - 117 U/L [facility] AST 17 15 - 37 U/L [facility] ALT 20 12 - 78 U/L [facility] I.V. SITE 03/16/2014 1:29 AM CDT 03/16/2014 1:34 AM CDT us Nika Anderson MD LABORATORY Final Result Performing Organization Address City/State/[facility] Co de Phone Number [facility] [address] [place] [address] * (ABNORMAL) CBC W/DIFF AUTOMATED (03/16/2014 1:29 AM CDT) WBC 9.7 3.8 - 10.7 k/uL [facility] RBC 4.44 3.80 - 5.20 m/uL [facility] HGB 12.8 12.0 - 16.0 g/dL [facility] HCT 38.7 35.0 - 46.0 % [facility] MCV 87 80.0 - 98.0 fl [facility] MCH 28.8 25.0 - 34.0 pg [facility] MCHC 33.1 32.0 - 36.0 g/dL [facility] RDW 14.3 11.0 - 15.0 % [facility] RDW-SD 44.8 36.4 - 46.3 fL [facility] PLT 221 140 - 440 k/uL [facility] MPV 11.50 9.2 - 12.7 fl [facility] DIFFERENTIAL TYPE AUTO-DIFF [facility] NEUTROPHILS % 60.3 % [facility] LYMPHOCYTES % 30.4 % [facility] MONOCYTES % 5.2 % [facility] EOSINOPHILS % 2.8 % [facility] BASOPHILS % 0.7 % [facility] IMMATURE GRANS % 0.6 % [facility] ABS. NEUTROPHILS 5.8 1.6 - 7.2 k/uL [facility] ABS. LYMPHOCYTES 2.9 0.9 - 4.0 k/uL [facility] ABS. MONOCYTES 0.5 0.2 - 0.9 k/uL [facility] ABS. EOSINOPHILS 0.3 0.0 - 0.5 k/uL [facility] ABS. BASOPHILS 0.1 0.0 - 0.2 k/uL [facility] ABS. IMMATURE GRANULOCYTES 0.1(H) 0.0 k/uL [facility] I.V. SITE 03/16/2014 1:29 AM CDT 03/16/2014 1:34 AM CDT us Nika Anderson MD LABORATORY Final Result Performing Organization Address City/State/[facility] Co de Phone Number [facility] [address] [place] [address] documented in this encounter Visit Diagnoses Diagnosis [...] Hi) documented in this encounter Care Teams Contact Lens Inspector Relationship Specialty Start Date End Date None, Provider, PCP - General 03/11/14 documented as of this encounter
--- OUTSIDE RECORDS SUMMARY | 2024-07-17 03:57 | XMS_ITS | Encounter Summary ---
Author Organization [facility] Address [address] [place] [address]. 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 Not on file Not on file documented as of this encounter Plan of Treatment Not on file documented as of this encounter Visit Diagnoses Diagnosis Bipolar I disorder, most recent episode (or current) depressed, severe, specified as with psychotic behavior ([facility]) Bipolar I disorder, most recent episode (or current) depressed, severe, specified as with psychotic behavior documented in this encounter Care Teams Last Sorter Relationship Specialty Start Date End Date None, Provider, PCP - General 03/11/14 Bakari Vasquez DO [address] [facility] [address] [place] [address] PCP - General 01/31/13 03/10/14 documented as of this encounter
--- OUTSIDE RECORDS SUMMARY | 2024-07-17 03:57 | XMS_ITS | Encounter Summary ---
Author Organization [facility] Address [address] [place] [address] Care Team Providers Care Investigative Writer Name Role Phone Marleni Jung Primary Care Provider [phone] Encounter Details Date Type Department Care Team (Latest Contact Info) Description 01/13/2024 Travel Social History Tobacco Use Types Packs/Day Years Used Date Smoking Tobacco: Never Passive Smoke Exposure: Past Smokeless Tobacco: Never Alcohol Use Standard Drinks/Week Comments Yes 0 (1 standard drink = 0.6 oz pur e alcohol) Utilities Answer Date Recorded In the past 12 months has [employer] electric, gas, oil, or water company threatened [...] Never 01/09/2024 How often does anyone, olesya qiuroz family and friends, insult or talk down [...] on filedocumented in this encounter Care Teams Investigative Writer Relationship Specialty Start Date End Date Marleni Jung [address] [address] PCP - General Family Practice 01/09/24 documented as of this encounter
--- OUTSIDE RECORDS SUMMARY | 2024-07-17 03:57 | XMS_ITS | Patient Health Summary ---
Author Organization [facility] Address [address] [place] [address] Care Team Providers Care Wood Floor Layer Name Role Phone Marleni Jung MD Primary Care Provider + Note from [facility],non-owned Affiliates and Associated Physician Practices is amultiple site organization consisting of ambulatory clinics and hospital sitesin [place], [place], [place] and [place]. This disclosure is being madepursuant to the Care Everywhere program and may not contain all information available regarding this patient. Last updated 18.[facility] Social History Tobacco Use Types Packs/Day [...] Antibody IgG 5.8(H) SEE BELOW IV [facility] Comment: <0.9 ? Negative ?presumed non-immune >=0.9 to <1.1 Equivocal >=1.1 ?Positive ?presumed immune Interpretation Rubeola [facility] Comment: ? When equivocal results are [...] - CHEMISTRY ORDE DAYO Performing Organization Address [facility] de Phone Number [facility] [address] [place] [address] * (ABNORMAL) MUMPS ANTIBODY IGG (03/29/2012 11:38 AM CDT) Mumps Virus Antibody IgG 7.2(H) SEE BELOW IV [facility] Comment: <0.9 ? Negative ?presumed non-immune >=0.9 to <1.1 Equivocal >=1.1 ?Positive ?presumed immune BLOOD SPECIMEN / Unknown 03/29/2012 11:38 AM CDT 03/29/2012 6:44 PM CDT Provider Unknown LAB - CHEMISTRY ORDE DAYO Performing Organization Address [facility] de Phone Number [facility] [address] [address] * RUBELLA ANTIBODY IGG (03/29/2012 11:38 AM CDT) Rubella Antibody 34.3 SEE BELOW IU/ml [facility] Comment: =>10.0 Positive-Immune 5.0-9.9 Suggest Repeat Testing <5.0 Negative-Nonimmune BLOOD SPECIMEN / Unknown 03/29/2012 11:38 AM CDT 03/29/2012 6:44 PM CDT Provider Unknown LAB - SEROLOGY ORDER JASWANT Performing Organization Address [facility] de Phone Number [facility] [address] [address] * HEPATITIS B SURFACE ANTIBODY (03/29/2012 11:38 AM CDT) Hepatitis B Virus Surface Antibody Nonreactive Nonreactive [facility] BLOOD SPECIMEN / Unknown 03/29/2012 11:38 AM CDT 03/29/2012 6:44 PM CDT Provider Unknown LAB - CHEMISTRY TIFFANIE OSHEA Performing Organization Address City/State/[facility] Co de Phone Number [facility] [address] [place] [address] Care Teams Wood Floor Layer Relationship Specialty Start Date End Date Marleni Jung MD [address] [place] [address] PCP - General Family Medicine 03/03/24
--- OUTSIDE RECORDS SUMMARY | 2024-07-17 03:57 | XMS_ITS | Clinical Summary ---
Author Organization [facility] Address [address] [place] [address] Care Team Providers Care Semiconductor Wafer Inspector Name Role Phone Marleni Jung MD Primary Care Provider + Source Comments [facility],non-owned Affiliates and Associated Physician Practices is amultiple site organization consisting of ambulatory clinics and hospital sitesin [place], [place], [place] and [place]. This disclosure is being madepursuant to the Care Everywhere program and may not contain all information available regarding this patient. Last updated 18.[facility] Social History Tobacco Use Types Packs/Day Years Used Date Smoking Tobacco: Never Assessed Sex and Gender Information Value Date Recorded Sex Assigned at Not on file Gender Identity Not on file Sexual Orientation Not on file Plan of Treatment Upcoming Encounters Date Type Department Care Team (Late st Contact Info) Description 09/27/2024 11:30 AM CDT Office Visit [facility] [address] [place] [address], [facility] [place] [address] [place] [address] [place] [phone] Health Maintenance Due Date Last Done Comments [...] age to complete this topic Care Teams Semiconductor Wafer Inspector Relationship Specialty Start Date End Date Marleni Jung MD [address] [place] [address] PCP - General Family Medicine 03/03/24
--- OUTSIDE RECORDS SUMMARY | 2024-07-17 03:57 | XMS_ITS | CONTINUITY OF CARE DOCUMENT ---
Author Name leylamarie nicolekaci Address Unknown Organization [facility] Address [address] [place] [address] Phone [phone] Care Team Providers Care Customer Loyalty Representative Name Role Phone Amari PAZ, Lalit Unavailable [phone] CHRISTIAN BAILEY MD Unavailable [phone] CHRISTIAN BAILEY MD Unavailable [phone] PROBLEMS Condition Status Date Provider Notes Venous hypertension - unspecified active Levin steph Fitzpatrick MD Kidney Disease active Lalitmakayla Fitzpatrick MD Hyperlipidemia active Lalit Fitzpatrick MD Diabetes, Type 2 active Lalit Fitzpatrick MD ENCOUNTERS Date Type Provider Location Encounter Diag nosis - In-person encounter Office Visit Lalit Fitzpatrick MD [facility] Office Diabetes, Type 2HyperlipidemiaKidney DiseaseVenous hypertension [...] Payer name Policy type / Coverage type [place] [employer] alliance party ID [id number] ADVANCE DIRECTIVES Name Date DISCUSSED - NO DECISION MADE TREATMENT PLAN Date Name Performer [id number] P nichol comes in for evaluation of [...] check venous doppler and f/u Amari PAZ [id number],C, H er updated medication list for this [...] under the skin every week Amari PAZ [id number],C,wc at home Levin steph Fitzpatrick MD [id number],C,a pkd f ather on Amari PAZ Cardiology:Patient [...]
--- OUTSIDE RECORDS SUMMARY | 2024-07-17 03:57 | XMS_ITS | Clinical Summary ---
Author Organization [facility] Address [address] [place] [address]. 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 GYNECOLOGIC CYTOLOGY REPORT ? Name: JACQUI VANGIE Garcia ?Specimen # : [id number] Age: 10 1970 (Age: 37) ?Location: [facility] Sex: F ? Procedure Date: 12/29/2007 Hospital #: [id number] ?Date Processed: 01/02/2008 [facility] Physician(s): Raysa Diehl ? Patient History: LMP: 12-15-07 Mentrual/Preg: Contraceptive: Other:Negative Cancer History: Pertinent History: Negative Treatment History: SPECIMEN: ??Clinic Screening Thin Prep Pap ADEQUACY: ??Satisfactory for Evaluation. DIAGNOSIS: ??NEGATIVE FOR INTRAEPITHELIAL LESIONS OR MALIGNANCY. Demetrius Álvarez (ASCP) Electronically Signed Out On 01/03/2008 ? This document has been printed from the electronic file of the [facility] Information System. This is not an official medical record copy. To obtain an official copy, please refer to the patient's permanent medical record at [facility]. [facility] 12/29/2007 10:5 6 AM CDT 01/02/2008 10:56 AM CDT Raysa NIEVES PATHOLOGY/CYTOLOGY ORDERABLES Final Result [facility] * [facility] MAMM DIG SCREENING (MAMDSCRB) (07/23/2004) Anatomical Region Laterality Modality Mammography Narrative Procedure Note Adrian English - 07/23/2004 12:[address] SQL DEVELOPER Refer. Physician: Samir Gonzalez MD Refer. BROACHING MACHINE SET UP OPERATOR/PA: X-Ray #: [id number] X-Ray Tech: MAMMOGRAPHY REPORT -- [facility] X-RAY VIEW(S) ORDERED: [facility] Mammo Dig Screen CAD w or w/o Dig Screen REQUISITION HISTORY: Compare to [facility] 05/12/2000. INTERPRETATION: Digital bilateral mammogram with CAD. INDICATION: Screening. Compared to May 12, 2000. FINDINGS: There is no significant change in appearance. There are nocurrent findings suggestive of new or enlarging breast malignancy. BIRADS CATEGORY: 1 - Negative. GMG/jmb Samir Gonzalez MD MAMMO Final Re sult from Last 3 Months or Most Recently Relevant to Health Maintenance Insurance [facility] OUT OF NETWORK Care Teams Grommet Man Relationship Specialty Start Date End Date None, Provider, PCP - General 03/11/14
--- OUTSIDE RECORDS SUMMARY | 2024-07-17 03:57 | XMS_ITS | Encounter Summary ---
Author Organization [facility] Address [address] [place] [address]. [place], [place] [address] [place] [address] Care Team Providers Care Ranch Hand Name Role Phone None, Provider MD Primary Care Provider Unavaila ble Reason for Visit * Reason Comments Swelling Patient states bilat eral leg swelling x1 1/2 weeks. Describes leg pain as stabbing. Also c/o SOB. 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 Do not take any medicines, rfnt-yzw-cmgvotr drugs, vitamins, herbs, or food supplements without [...] thatcontains acetaminophen. Ask your caregiver before taking kfve-yjp-gpbdvlb medicine if you are also taking pain [...] concerns about your condition. Copyright ?? 2011. [employer]. All rights reserved. Information is for End User's use only andmay not be sold, redistributed or otherwise used for commercial purposes. The above information is an psychiatric aide only. It is not intended as [...] -ECG 12-LEAD EKG Joy Ray DO 03/11/14 3413 documented in this encounter Plan of Treatment [...] Narrative 03/12/2014 7:04 AM CDT INTERPRETATION LOCATION: [facility] PROCEDURE: ??XR CHEST PA+LAT VIEW(S): [...] Raz Muller MD - 03/12/2014 INTERPRETATION LOCATION: [facility] PROCEDURE: XR CHEST PA+LAT VIEW(S): [...] HGB A1C 5.5 4.5 - 6.2 % [facility] Comment: The [place] Diabetes [employer] recommends that a primary goal of therapy should be a HgA1c of <7%. ESTIMATED AVG GLUCOSE 111 mg/dL [facility] I.V. SITE 03/11/2014 10:1 5 PM CDT 03/11/2014 11:11 PM CDT us Joy Ray DO LABORATORY Final Res ult [facility] [address] [place] [address] * (ABNORMAL) CBC W/DIFF AUTOMATED (03/11/2014 10:15 PM CDT) WBC 9.6 3.8 - 10.7 k/uL [facility] RBC 4.54 3.8 - 5.2 m/uL [facility] HGB 13.2 12.0 - 16.0 g/dL [facility] HCT 38.4 35.0 - 46.0 % [facility] MCV 85 80.0 - 98.0 fl [facility] MCH 29.1 25.0 - 34.0 pg [facility] MCHC 34.4 32.0 - 36.0 g/dL [facility] RDW 14.3 11.0 - 15.0 % [facility] RDW-SD 43.7 36.4 - 46.3 fL [facility] PLT 218 140 - 440 k/uL [facility] MPV 12.10 9.2 - 12.7 fl [facility] DIFFERENTIAL TYPE AUTO-DIFF [facility] NEUTROPHILS % 63.2 % [facility] LYMPHOCYTES % 27.5 % [facility] MONOCYTES % 5.3 % [facility] EOSINOPHILS % 2.8 % [facility] BASOPHILS % 0.4 % [facility] IMMATURE GRANS % 0.8 % [facility] ABS. NEUTROPHILS 6.1 1.6 - 7.2 k/uL [facility] ABS. LYMPHOCYTES 2.7 0.9 - 4.0 k/uL [facility] ABS. MONOCYTES 0.5 0.2 - 0.9 k/uL [facility] ABS. EOSINOPHILS 0.3 0.0 - 0.5 k/uL [facility] ABS. BASOPHILS 0.0 0.0 - 0.2 k/uL [facility] ABS. IMMATURE GRANULOCYTES 0.1(H) 0.0 k/uL [facility] I.V. SITE 03/11/2014 10:1 5 PM CDT 03/11/2014 10:20 PM CDT us Joy Ray DO LABORATORY Final Res ult [facility] [address] [place] [address] * (ABNORMAL) COMPREHENSIVE METABOLIC PANEL (03/11/2014 10:15 PM CDT) SODIUM S/P/B 138 136 - 145 mmol/L [facility] POTASSIUM S/P/B 3.2(L) 3.5 - 5.1 mmol/L [facility] CHLORIDE S/P/B 102 98 - 107 mmol/L [facility] CO2 24 21 - 32 mmol/L [facility] ANION GAP 12 5 - 15 mmol/L [facility] BUN 10 7 - 18 mg/dL [facility] CREATININE S/P/B 1.0 0.6 - 1.0 mg/dL [facility] BUN CREATININE RATIO 10.0 10 - 20 :1 [facility] EGFR NON-AFR. AMER. >60 >60 mls/min. [facility] EGFR AFR. AMER. >60 >60 mls/min. [facility] GLUCOSE 168(H) 70 - 99 mg/dL [facility] CALCIUM S/P/B 8.5 8.5 - 10.1 mg/dL [facility] TOTAL PROTEIN S/P/B 7.3 6.4 - 8.5 g/dL [facility] ALBUMIN S/P/B 3.2 3.1 - 5.0 g/dL [facility] BILIRUBIN TOTAL S/P/B 0.3 0.2 - 1.0 mg/dL [facility] ALKALINE PHOSPHATASE S/P/B 110 45 - 117 U/L [facility] AST 15 15 - 37 U/L [facility] ALT 25 12 - 78 U/L [facility] I.V. SITE 03/11/2014 10:1 5 PM CDT 03/11/2014 10:20 PM CDT us Joy Ray DO LABORATORY Final Res ult [facility] [address] [place] [address] * D-DIMER, QUANTITATIVE (03/11/2014 10:15 PM CDT) D-DIMER 202 <232 ng/mL D-DU [facility] Comment: ?? Only values less than [...] LABORATORY Final Res ult Performing Organization Address [facility] de Phone Number [facility] [address] [place] [address] * THYROID STIM HORMONE, TSH (03/11/2014 10:15 PM CDT) Pathologist [facility] TSH 3.020 0.358 - 3.740 uIU/mL [facility] I.V. SITE 03/11/2014 10:1 5 PM CDT 03/11/2014 10:20 PM CDT Vitacristelsylvia Ray DO LABORATORY Final Res ult Performing Organization Address [facility] de Phone Number [facility] [address] [place] [address] * ECG 12 lead (03/11/2014 10:00 PM CDT) Pathologist [facility] EKG <!--EPICS--><H3> ? [facility] ED</H3>
?

<b>Test Date: ?2014-03-11</b>
Pat Name: ? VANGIE YUEN ? Department: ?? 20
? Room: ? 1515
Gender: ? F ?State Patrol Officer: ??
: ?1970 ? Requested By: JOY RAY
O rder Number: [id number] ? Reading MD: ?? Joy Ray
< br><b>Measuremen ts</b>
Interv als ?[place] ?
Rate: ? 82 ? P: ?42
WV: ? 172 ?QRS: ?27
QRSD: ? 84 ? T: ?50
QT: ? 352 ?
QTc: ?

<b>Inter pretive Statements</b><b r> Age and gender specific ECG analysis
Normal sinus rhythm
Normal ECG

Elect ronically signed by Joy Ray at 03-13-14 05:47:24 CDT<!--EPICE--> [facility] 03/11/2014 10:0 0 PM CDT us Joy Ray DO ECG ORDERABLES Final Res ult [facility] documented in this encounter Visit Diagnoses Diagnosis Costochondritis- Primary Tietze's disease documented in this encounter Care Teams Ranch Hand Relationship Specialty Start Date End Date None, Provider, PCP - General 03/11/14 documented as of this encounter
--- OUTSIDE RECORDS SUMMARY | 2024-07-17 03:57 | XMS_ITS | Referral Summary ---
Author Organization [facility] Address [address] [place] [address] Care Team Providers Care Oracle Ebs Developer Name Role Phone Marleni Jung Primary Care Provider [phone] Allergies Active Allergy Reactions Criticality Noted Date [...] In the past 12 months has e Managed Methods, gas, oil, or water [employer] threatened to shut off services in your home? No 01/09/2024 PHQ-2 Answer Date Recorded Initial depression screening score: 0 01/09/2024 Social Connections Answer Date Recorded How often do you see or talk to people that you care about and feel close to? (For example: talking to friends on the phone, visiting friends or family, going to yarsanism or club meetings) 5 or more times [...] CDT) Fasting Status 01/13/2024 7:38 AM T [facility] Sodium 138 135 - 145 mmol/L 01/13/2024 7:38 AM [facility] Potassium 3.6 3.4 - 5.1 mmol/L 01/13/2024 7:38 AM [facility] Chloride 104 97 - 110 mmol/L 01/13/2024 7:38 AM [facility] Carbon Dioxide 30 21 - 32 mmol/L 01/13/2024 7:38 AM [facility] Anion Gap 8 7 - 19 mmol/L 01/13/2024 7:38 AM [facility] Glucose 143(H) 70 - 99 mg/dL 01/13/2024 7:38 AM [facility] BUN 20 6 - 20 mg/dL 01/13/2024 7:38 AM [facility] Creatinine 1.16(H) 0.51 - 0.95 mg/dL 01/13/2024 7:38 AM [facility] Glomerular Filtration Rate 56(L) >=60 01/13/2024 7:38 AM [facility] Comment:eGFR 30-59 mL/min/1. 73m2 = Moderate decrease in kidney function. Stage 3 CKD (chronic kidney disease) or moderate kidney disease. Estimated GFR calculated using the CKD-EPI-R (2020) equation that does not include race in the creatinine calculation. BUN/Cr 17 7 - 25 01/13/2024 7:38 AM [facility] Calcium 8.9 8.4 - 10.2 mg/dL 01/13/2024 7:38 AM [facility] Bilirubin, Total 0.7 0.2 - 1.0 mg/dL 01/13/2024 7:38 AM CDT [facility] GOT/AST 16 <=37 Units/L 01/13/2024 7:38 AM CDT [facility] GPT/ALT 18 <64 Units/L 01/13/2024 7:38 AM CDT [facility] Alkaline Phosphatase 119(H) 45 - 117 Units/L 01/13/2024 7:38 AM CDT [facility] Albumin 3.0(L) 3.6 - 5.1 g/dL 01/13/2024 7:38 AM CDT [facility] Protein, Total 6.9 6.4 - 8.2 g/dL 01/13/2024 7:38 AM CDT [facility] Globulin 3.9 2.0 - 4.0 g/dL 01/13/2024 7:38 AM CDT [facility] A/G Ratio 0.8(L) 1.0 - 2.4 01/13/2024 7:38 AM CDT [facility] Blood VENOUS BLOOD SPECIMEN / Unknown Venipuncture / Unknown 01/13/2024 7:10 AM CDT 01/13/2024 7:15 AM CDT Nicholas Rios DO BKR LAB BLOOD ORDERA BLES Performing Organization Address City/State/[facility] Co de Phone Number [facility] [address] [place] [address] from Last 3 Months or Most Recently Relevant to Health Maintenance Advance Directives * Selective Treatment/DNR (Latest Code Status on File) Date Activated Date Inactivated Comments 01/09/2024 3:54 PM 01/11/2024 1:38 PM Question Answer Comments CPR in case of Cardiac Arrest? No Intubation ( Pre-Arrest ) ? Yes Antiarrhythmics (Pre-Arrest)? Yes Cardioversion (Pre-Arrest)? Yes Vasopressor (Pre-Arrest)? Yes Care Teams Oracle Ebs Developer Relationship Specialty Start Date End Date Marleni Jung [address] [place] [phone] PCP - General Family Practice 01/09/24
--- OUTSIDE RECORDS SUMMARY | 2024-07-17 03:57 | XMS_ITS | Referral Summary ---
Author Organization [facility] Address [address] [facility] [place] [address] Care Team Providers Care Logger Name Role Phone Marleni Jung MD Primary Care Provider + Source Comments [facility],non-owned Affiliates and Associated Physician Practices is amultiple site organization consisting of ambulatory clinics and hospital sitesin [place], [place], [place] and [place]. This disclosure is being madepursuant to the Care Everywhere program and may not contain all information available regarding this patient. Last updated 18.[facility] [employer] Social History Tobacco Use Types Packs/Day Years Used Date Smoking Tobacco: Never Assessed Sex and Gender Information Value Date Recorded Sex Assigned at Not on file Gender Identity Not on file Sexual Orientation Not on file Plan of Treatment Upcoming Encounters Date Type Department Care Team (Late st Contact Info) Description 09/27/2024 11:30 AM CDT Office Visit [facility] [address] [facility], [place] [address] Marcos Ferrer MD [address] [place] [address] Care Teams Logger Relationship Specialty Start Date End Date Marleni Jung MD [address] [facility] [address] [place] [address] PCP - General Family Medicine 03/03/24
--- OUTSIDE RECORDS SUMMARY | 2024-07-17 03:58 | XMS_ITS | Encounter Summary ---
Author Organization [facility] Address [address] [place] [address]. [place], [place] [address] [place] [address] Care Team Providers Care Perinatal Educator Name Role Phone Unavailable Primary Care Provider Unavailabl e Reason for Visit * Reason Comments Outside Record (SCAN) [facility] Encounter Details Date Type Department Care Team (Late st Contact Info) Description 07/19/2008 Scan [facility] [address] [place] [phone] Scanned, Documents Outside Record (SCAN) ([facility]) Social History Tobacco Use Types Packs/Day [...] * Kyler Fitzgerald - 08/07/2008 1:13 PM FOREIGN EXCHANGE POSITION CLERK IGN EXCHANGE POSITION CLERK documented in this encounter Plan of Treatment Not on file documented as of this encounter Visit Diagnoses Not on filedocumented in this encounter
--- OUTSIDE RECORDS SUMMARY | 2024-07-17 03:58 | XMS_ITS | Encounter Summary ---
Author Organization [facility] Address [address] [place] [address]. [place], [place] [address] [place] [address] Care Team Providers Care Supervisor Diagnostic Name Role Phone Unavailable Primary Care Provider Unavailabl e Reason for Visit * Reason Onset Date Comments Letter 06/28/2008 STATING SHE WAS DETAINED AT [facility] Encounter Details Date Type Department Care Team (Late st Contact Info) Description 06/28/2008 Telephone [facility] [address] [facility] [place] [address] Raquel Gauthier MD [address] 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 She states she was unable to leave there. Discussed because Dr. Gauthier not involved in that part of her care she needs to contact [facility] for assistance. If can't get the information she needs from them will call the clinic back for further asisstance. R ENERGY ENGINEER documented in this encounter Plan of Treatment Not on file documented as of this encounter Visit Diagnoses Not on filedocumented in this encounter
--- OUTSIDE RECORDS SUMMARY | 2024-07-17 03:58 | XMS_ITS | Encounter Summary ---
Author Organization [facility] Address [address] [place] [address]. 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 on file Not on file documented as of this encounter Plan of Treatment Not on file documented as of this encounter Visit Diagnoses Not on filedocumented in this encounter Care Teams Master Planner Relationship Specialty Start Date End Date None, Provider, PCP - General 03/11/14 Bakari Vasquez DO [address] [place] [address] PCP - General 01/31/13 03/10/14 Bakari Vasquez DO [address] [place] [address] PCP - General 01/25/13 01/30/13 Bakari Vasquez DO [address] [place] [address] PCP - General 01/21/13 01/24/13 Bakari Vasquez DO [address] [place] [address] PCP - General 01/09/13 01/20/13 Bakari Vasquez DO [address] [place] [address] PCP - General 01/03/13 01/08/13 Bakari Vasquez DO [address] [place] [address] PCP - General 01/01/13 01/02/13 Bakari Vasquez DO [address] [place] [address] PCP - General 12/25/12 12/31/12 documented as of this encounter
--- OUTSIDE RECORDS SUMMARY | 2024-07-17 03:58 | XMS_ITS | Encounter Summary ---
Author Organization [facility] Address [address] [place] [address]. [place], [place] [address] [place] [address] Care Team Providers Care Elevator Constructor Electric Name Role Phone Unavailable Primary Care Provider Unavailabl e Reason for Visit * Reason Onset Date Comments Error 12/30/2008 Encounter Details Date Type Department Care Team (Late st Contact Info) Description 12/30/2008 Nurse Triage [facility] [address] [place] [address] Raquel Gauthier MD [address] [employer] ?? 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
--- OUTSIDE RECORDS SUMMARY | 2024-07-17 03:58 | XMS_ITS | Encounter Summary ---
Author Organization [facility] Address [address] [place] [address]. [place], [place] [address] [place] [address] Care Team Providers Care Ep Specialist Name Role Phone Unavailable Primary Care Provider Unavailabl e Reason for Visit * Reason Onset Date Comments Refill Request 06/25/2008 ambien/ to [facility] Encounter Details Date Type Department Care Team (Late st Contact Info) Description 06/25/2008 Telephone [facility] [address] [facility] [place] [address] Raquel Gauthier MD [address] [employer] ?? 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 Per Dr. Gauthier because was recently in [facility] needs to be seen. Willing [...] bring med bottles into clinic for review. ERY HEAD FORMER documented in this encounter Plan of Treatment Not on file documented as of this encounter Visit Diagnoses Not on filedocumented in this encounter
--- OUTSIDE RECORDS SUMMARY | 2024-07-17 03:58 | XMS_ITS | Encounter Summary ---
Author Organization [facility] Address [address] [place] [address]. [place], [place] [address] [place] [address] Care Team Providers Care Sound Mixer Name Role Phone Raquel Gauthier MD Primary Care Provider [phone] None, Provider Primary Care Provider Unavaila ble [...] (Late st Contact Info) Description 07/14/2008 Scan [facility] Health Information Management [address] [place] [address] , Sheila Tate MD Social History Tobacco [...] on filedocumented in this encounter Care Teams Sound Mixer Relationship Specialty Start Date End Date Raquel Gauthier MD [facility] [place], [place] [id number] PCP - General 10/30/09 10/30/09 None, MD Aurelio [facility] ?? [place] [address] PCP - General 03/11/14 Bakari Vasquez DO [address] [place] [address] PCP - General 01/31/13 03/10/14 Bakari Vasquez DO [address] [place] [address] PCP - General 01/25/13 01/30/13 Bakari Vasquez DO [address] [place] [address] PCP - General 01/21/13 01/24/13 Bakari Vasquez DO [address] [place] [address] PCP - General 01/09/13 01/20/13 Bakari Vasquez DO [address] [place] [address] PCP - General 01/03/13 01/08/13 Bakari Vasquez DO [address] [place] [address] PCP - General 01/01/13 01/02/13 Bakari Vasquez DO 501 [facility] [address] [place] [address] PCP - General 12/25/12 12/31/12 documented as of this encounter
--- OUTSIDE RECORDS SUMMARY | 2024-07-17 03:58 | XMS_ITS | Encounter Summary ---
Author Organization [facility] Address [address] [place] [address]. [place], [place] [address] [place] [address] Care Team Providers Care Digital Marketing Program Manager Name Role Phone Raquel Gauthier MD Primary Care Provider [phone] None, Provider Primary Care Provider Unavaila ble [...] (Late st Contact Info) Description 06/14/2008 Scan [facility] Health Information Management [address] [place] [address] , Sheila Tate MD Social History Tobacco [...] on filedocumented in this encounter Care Teams Digital Marketing Program Manager Relationship Specialty Start Date End Date Raquel Gauthier MD [facility] ?? [place], [place] [phone] PCP - General 10/30/09 10/30/09 None, MD Aurelio [facility] [place] [address] PCP - General 03/11/14 Bakari Vasquez DO [address] [place] [address] PCP - General 01/31/13 03/10/14 Bakari Vasquez DO [address] [place] [address] PCP - General 01/25/13 01/30/13 Bakari Vasquez DO [address] [place] [address] PCP - General 01/21/13 01/24/13 Bakari Vasquez DO [address] [place] [address] PCP - General 01/09/13 01/20/13 Bakari Vasquez DO [address] [place] [address] PCP - General 01/03/13 01/08/13 Bakari Vasquez DO [address] [place] [address] PCP - General 01/01/13 01/02/13 Bakari Vasquez DO 501 [facility] [address] [place] [address] PCP - General 12/25/12 12/31/12 documented as of this encounter
--- OUTSIDE RECORDS SUMMARY | 2024-07-17 03:58 | XMS_ITS | Encounter Summary ---
Author Organization [facility] Address [address] [place] [address]. 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 [place], [place] [id number] PCP - General 10/30/09 10/30/09 None, MD Aurelio [facility] ?? [place] [address] PCP - General 03/11/14 Bakari Vasquez DO [address] [place] [address] PCP - General 01/31/13 03/10/14 Bakari Vasquez DO [address] [place] [address] PCP - General 01/25/13 01/30/13 Bakari Vasquez DO [address] [place] [address] PCP - General 01/21/13 01/24/13 Bakari Vasquez DO [address] [place] [address] PCP - General 01/09/13 01/20/13 Bakari Vasquez DO [address] [place] [address] PCP - General 01/03/13 01/08/13 Bakari Vasquez DO [address] [place] [address] PCP - General 01/01/13 01/02/13 Bakari Vasquez DO 501 [facility] [address] [place] [address] PCP - General 12/25/12 12/31/12 documented as of this encounter
--- OUTSIDE RECORDS SUMMARY | 2024-07-17 03:58 | XMS_ITS | Encounter Summary ---
Author Organization [facility] Address [address] [place] [address]. [place], [place] [address] [place] [address] Care Team Providers Care V Belt Finisher Name Role Phone Raquel Gauthier MD Primary Care Provider [phone] None, Provider Primary Care Provider Unavaila ble [...] (Late st Contact Info) Description 05/05/2009 Abstract [facility] [place] [address] Ricci Ruiz MD [address] [facility] [address] [place] [address] [address] Social History Tobacco Use Types Packs/Day Years [...] on filedocumented in this encounter Care Teams V Belt Finisher Relationship Specialty Start Date End Date Raquel Gauthier MD [employer] ?? [place], [place] [id number] PCP - General 10/30/09 10/30/09 None, MD Aurelio [facility] [employer] ?? [place] [address] PCP - General 03/11/14 Bakari Vasquez DO [address] [place] [address] PCP - General 01/31/13 03/10/14 Bakari Vasquez DO [address] [place] [address] PCP - General 01/25/13 01/30/13 Bakari Vasquez DO [address] [place] [address] PCP - General 01/21/13 01/24/13 Bakari Vasquez DO [address] [place] [address] PCP - General 01/09/13 01/20/13 Bakari Vasquez DO [address] [place] [address] PCP - General 01/03/13 01/08/13 Bakari Vasquez DO [address] [place] [address] PCP - General 01/01/13 01/02/13 Bakari Vasquez DO 501 [facility] [address] [place] [address] PCP - General 12/25/12 12/31/12 documented as of this encounter
--- OUTSIDE RECORDS SUMMARY | 2024-07-17 03:58 | XMS_ITS | Encounter Summary ---
Author Organization [facility] Address [address] [place] [address]. [place], [place] [address] [place] [address] Care Team Providers Care City Tax Auditor Name Role Phone Unavailable Primary Care Provider Unavailabl e Reason for Visit * Reason Onset Date Comments WorkComp/Disability/FMLA Rep ort (SCAN) 06/14/2008 NEEDS HER FMLA UPDATED TO IN DICATE THROUGH 06/10. PLEASE CALL. Encounter Details Date Type Department Care Team (Late st Contact Info) Description 06/14/2008 Telephone [facility] [address] [place] [address] Raquel Gauthier MD [address] ?? 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 Refaxed to HR as requested. UMER INSIGHT MANAGER documented in this encounter Plan of Treatment Not on file documented as of this encounter Visit Diagnoses Not on filedocumented in this encounter
--- OUTSIDE RECORDS SUMMARY | 2024-07-17 03:58 | XMS_ITS | Encounter Summary ---
Author Organization [facility] Address [address] [place] [address]. 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 [place], [place] [address] PCP - General 10/30/09 10/30/09 None, MD Aurelio [facility] [email or web address] ?? [place] [address] PCP - General 03/11/14 Bakari Vasquez DO [address] [place] [address] PCP - General 01/31/13 03/10/14 Bakari Vasquez DO [address] [place] [address] PCP - General 01/25/13 01/30/13 Bakari Vasquez DO [address] [place] [address] PCP - General 01/21/13 01/24/13 Bakari Vasquez DO [address] [place] [address] PCP - General 01/09/13 01/20/13 Bakari Vasquez DO [address] [place] [address] PCP - General 01/03/13 01/08/13 Bakari Vasquez DO 501 [facility] [address] [place] [address] PCP - General 01/01/13 01/02/13 Bakari Vasquez DO 501 [facility] [address] [place] [address] PCP - General 12/25/12 12/31/12 documented as of this encounter
--- OUTSIDE RECORDS SUMMARY | 2024-07-17 03:58 | XMS_ITS | Encounter Summary ---
Author Organization [facility] Address [address] [place] [address]. 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 Not on file Not on file documented as of this encounter Plan of Treatment Not on file documented as of this encounter Visit Diagnoses Diagnosis Major depressive disorder, recurrent episode, moderate (CMS/HCC HHS/HCC) Major depressive disorder, recurrent episode, moderate documented in this encounter Care Teams Power Plant Technician Relationship Specialty Start Date End Date None, Provider, PCP - General 03/11/14 Bakari Vasquez DO [address] [facility] [address] [place] [address] PCP - General 01/31/13 03/10/14 Bakari Vasquez DO [address] [facility] [address] [place] [address] PCP - General 01/25/13 01/30/13 Bakari Vasquez DO [address] [facility] [address] [place] [address] PCP - General 01/21/13 01/24/13 Bakari Vasquez DO [address] [facility] [address] [place] [address] PCP - General 01/09/13 01/20/13 documented as of this encounter
--- OUTSIDE RECORDS SUMMARY | 2024-07-17 03:58 | XMS_ITS | Encounter Summary ---
Author Organization [facility] Address [address] [place] [address]. [place], [place] [address] [place] [address] Care Team Providers Care Auxiliary Equipment Operator Name Role Phone Unavailable Primary Care Provider Unavailabl e Reason for Visit * Reason Onset Date Comments FYI 07/15/2008 PT WAS ADMITTED TODAY 07/15/08. Encounter Details Date Type Department Care Team (Late Contact Info) Description 07/15/2008 Telephone [facility] [address] [facility] [place] [address] Raquel Gauthier MD [address] ?? 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 Gauthier aware. NISTRATIVE RECEPTIONIST documented in this encounter Plan of Treatment Not on file documented as of this encounter Visit Diagnoses Not on filedocumented in this encounter
--- OUTSIDE RECORDS SUMMARY | 2024-07-17 03:58 | XMS_ITS | Encounter Summary ---
Author Organization [facility] Address [address] [place] [address]. 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 [place], [place] [phone] PCP - General 10/30/09 10/30/09 None, MD Aurelio [facility] ?? [place] [address] PCP - General 03/11/14 Bakari Vasquez DO [address] [place] [address] PCP - General 01/31/13 03/10/14 Bakari Vasquez DO [address] [place] [address] PCP - General 01/25/13 01/30/13 Bakari Vasquez DO [address] [place] [address] PCP - General 01/21/13 01/24/13 Bakari Vasquez DO [address] [place] [address] PCP - General 01/09/13 01/20/13 Bakari Vasquez DO [address] [place] [address] PCP - General 01/03/13 01/08/13 Bakari Vasquez DO [address] [place] [address] PCP - General 01/01/13 01/02/13 Bakari Vasquez DO 501 [facility] [address] [place] [address] PCP - General 12/25/12 12/31/12 documented as of this encounter
--- OUTSIDE RECORDS SUMMARY | 2024-07-17 03:58 | XMS_ITS | Encounter Summary ---
Author Organization [facility] Address [address] [place] [address]. 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 Not on file Not on file documented as of this encounter Plan of Treatment Not on file documented as of this encounter Visit Diagnoses Diagnosis Major depressive disorder, recurrent episode, moderate ([facility]) Major depressive disorder, recurrent episode, moderate documented in this encounter Care Teams Copper Miner Blasting Relationship Specialty Start Date End Date None, Provider, PCP - General 03/11/14 Bakari Vasquez DO [address] [place] [address] PCP - General 01/31/13 03/10/14 Bakari Vasquez DO [address] [place] [address] PCP - General 01/25/13 01/30/13 Bakari Vasquez DO [address] [place] [address] PCP - General 01/21/13 01/24/13 Bakari Vasquez DO [address] [place] [address] PCP - General 01/09/13 01/20/13 Bakari Vasquez DO [address] [place] [address] PCP - General 01/03/13 01/08/13 Bakari Vasquez DO [address] [place] [address] PCP - General 01/01/13 01/02/13 Bakari Vasquez DO [address] [place] [address] PCP - General 12/25/12 12/31/12 documented as of this encounter
--- OUTSIDE RECORDS SUMMARY | 2024-07-17 03:58 | XMS_ITS | Encounter Summary ---
Author Organization [facility] Address [address] [place] [address]. [place], [place] [address] [place] [address] Care Team Providers Care Ginner Helper Name Role Phone Unavailable Primary Care Provider Unavailabl e Reason for Visit * Reason Onset Date Comments Orders 06/17/2008 PT IS CURRENTLY AT [facility], NEEDS TO BE TRANSFERED TO [facility]. Encounter Details Date Type Department Care Team (Late Contact Info) Description 06/17/2008 Telephone [place] [id number] [place] [address] Raquel Gauthier MD [address] ?? [place] [address] Orders (PT IS CURRENTLY AT [facility], NEEDS TO BE TRANSFERED TO [facility]. 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 She was admitted to [facility] for a 72 hour hold and would like to get admitted to [facility] instead. Does have insurance. Discussed that she needs to work with nurses at [facility] for the transfer. She also needs to check with her insurance to make sure she can go to [facility]. Discussed Dr. Gauthier really does not get involved with in psych care. Requested [facility] ER records. She will call back if needs further assistance. GENERATION SPECIALIST GENERATION SPECIALIST documented in this encounter Plan of Treatment Not on file documented as of this encounter Visit Diagnoses Not on filedocumented in this encounter
--- OUTSIDE RECORDS SUMMARY | 2024-07-17 03:58 | XMS_ITS | Encounter Summary ---
Author Organization [facility] Address [address] [place] [address]. 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 [place], [place] [id number] PCP - General 10/30/09 10/30/09 None, MD Aurelio [facility] [employer] [facility] ?? [place] [address] PCP - General 03/11/14 Bakari Vasquez DO [address] [place] [address] PCP - General 01/31/13 03/10/14 Bakari Vasquez DO [address] [place] [address] PCP - General 01/25/13 01/30/13 Bakari Vasquez DO [address] [place] [address] PCP - General 01/21/13 01/24/13 Bakari Vasquez DO [address] [place] [address] PCP - General 01/09/13 01/20/13 Bakari Vasquez DO [address] [place] [address] PCP - General 01/03/13 01/08/13 Bakari Vasquez DO [address] [place] [address] PCP - General 01/01/13 01/02/13 Bakari Vasquez DO [address] [facility] [address] [place] [address] PCP - General 12/25/12 12/31/12 documented as of this encounter
--- OUTSIDE RECORDS SUMMARY | 2024-07-17 03:58 | XMS_ITS | Encounter Summary ---
Author Organization [facility] Address [address] [place] [address]. 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
--- OUTSIDE RECORDS SUMMARY | 2024-07-17 03:58 | XMS_ITS | Encounter Summary ---
Author Organization [facility] Address [address] [place] [address]. 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 [place] [address] PCP - General 10/30/09 10/30/09 None, Aurelio, [address] ?? [place] [address] PCP - General 03/11/14 Bakari Vasquez DO [address] [place] [address] PCP - General 01/31/13 03/10/14 Bakari Vasquez DO [address] [place] [address] PCP - General 01/25/13 01/30/13 Bakari Vasquez DO [address] [place] [address] PCP - General 01/21/13 01/24/13 Bakari Vasquez DO [address] [place] [address] PCP - General 01/09/13 01/20/13 Bakari Vasquez DO [address] [place] [address] PCP - General 01/03/13 01/08/13 Bakari Vasquez DO [address] [place] [address] PCP - General 01/01/13 01/02/13 Bakari Vasquez DO [address] [place] [address] 20 [place] [address] PCP - General 12/25/12 12/31/12 documented as of this encounter
--- OUTSIDE RECORDS SUMMARY | 2024-07-17 03:58 | XMS_ITS | Encounter Summary ---
Author Organization [facility] Address [address] [place] [address]. [place], [place] [address] [place] [address] Care Team Providers Care Team Automobile Assembler Name Role Phone Unavailable Primary Care Provider Unavailabl e Reason for Visit * Reason Comments Follow Up [facility] back on 06/14/08 . Medication Check Encounter Details Date Type Department Care Team (Late Contact Info) Description 06/26/2008 12:00 PM POLITICAL SCIENTIST Office Visit [facility] [address] [facility] [place] [phone] Raquel Gauthier MD [address] [place] [address] ?? 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 Per patient, currently, still dealing with those things with human resources. She started having anxiety and visited ER a couple times. Eventually, the patient started having suicidal ideation and was admitted to [facility]. She was discharged with Seroquel 25 mg [...] already had an appointment with a [facility]. Her psychologist, Dr. Joyner; at this time, [...] questions. Patient left without questions or concerns. TICAL SCIENTIST documented in this encounter Plan of Treatment Not on file documented as of this encounter Visit Diagnoses Diagnosis Insomnia Insomnia, unspecified Anxiety Anxiety state, unspecified documented in this encounter
--- OUTSIDE RECORDS SUMMARY | 2024-07-17 03:58 | XMS_ITS | Encounter Summary ---
Author Organization [facility] Address [address] [place] [address]. 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 [place] [address] PCP - General 10/30/09 10/30/09 None, MD Aurelio [address] [employer] ?? [place] [address] PCP - General 03/11/14 Bakari Vasquez DO [address] [place] [address] PCP - General 01/31/13 03/10/14 Bakari Vasquez DO [address] [place] [address] PCP - General 01/25/13 01/30/13 Bakari Vasquez DO [address] [place] [address] PCP - General 01/21/13 01/24/13 Bakari Vasquez DO [address] [place] [address] PCP - General 01/09/13 01/20/13 Bakari Vasquez DO [address] [place] [address] PCP - General 01/03/13 01/08/13 Bakari Vasquez DO 501 [facility] [address] [place] [address] PCP - General 01/01/13 01/02/13 Bakari Vasquez DO 501 [facility] [address] [place] [address] PCP - General 12/25/12 12/31/12 documented as of this encounter
--- OUTSIDE RECORDS SUMMARY | 2024-07-17 03:58 | XMS_ITS | Encounter Summary ---
Author Organization [facility] Address [address] [place] [address]. 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 [place], [place] [address] PCP - General 10/30/09 10/30/09 None, MD Aurelio [facility] [employer] [facility] ?? [place] [address] PCP - General 03/11/14 Bakari Vasquez DO [address] [place] [address] PCP - General 01/31/13 03/10/14 Bakari Vasquez DO [address] [place] [address] PCP - General 01/25/13 01/30/13 Bakari Vasquez DO [address] [place] [address] PCP - General 01/21/13 01/24/13 Bakari Vasquez DO [address] [place] [address] PCP - General 01/09/13 01/20/13 Bakari Vasquez DO [address] [place] [address] PCP - General 01/03/13 01/08/13 Bakari Vasquez DO [address] [place] [address] PCP - General 01/01/13 01/02/13 Bakari Vasquez DO 501 [facility] [address] [place] [address] PCP - General 12/25/12 12/31/12 documented as of this encounter
--- OUTSIDE RECORDS SUMMARY | 2024-07-17 03:58 | XMS_ITS | Encounter Summary ---
Author Organization [facility] Address [address] [place] [address]. 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 [place], [place] [address] PCP - General 10/30/09 10/30/09 None, MD Aurelio [facility] ?? [place] [address] PCP - General 03/11/14 Bakari Vasquez DO [address] [place] [address] PCP - General 01/31/13 03/10/14 Bakari Vasquez DO [address] [place] [address] PCP - General 01/25/13 01/30/13 Bakari Vasquez DO [address] [place] [address] PCP - General 01/21/13 01/24/13 Bakari Vasquez DO [address] [place] [address] PCP - General 01/09/13 01/20/13 Bakari Vasquez DO [address] [place] [address] PCP - General 01/03/13 01/08/13 Bakari Vasquez DO [address] [place] [address] PCP - General 01/01/13 01/02/13 Bakari Vasquez DO 501 [facility] [address] [place] [address] PCP - General 12/25/12 12/31/12 documented as of this encounter
--- OUTSIDE RECORDS SUMMARY | 2024-07-17 03:58 | XMS_ITS | Encounter Summary ---
Author Organization [facility] Address [address] [place] [address]. [place], [place] [address] [place] [address] Care Team Providers Care Computer Specialist Name Role Phone Unavailable Primary Care Provider Unavailabl e Reason for Visit * Reason Onset Date Comments Forms 09/09/2008 FMLA FROM 06/05 - 06/11 CALL WHEN READY AND SHE WILL SCRAPPER Encounter Details Date Type Department Care Team (Late st Contact Info) Description 09/09/[address] [place] [phone] Raquel Gauthier MD [address] ?? 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 Copy printed and ready for case picker. LAGE CLERK LAGE CLERK documented in this encounter Plan of Treatment Not on file documented as of this encounter Visit Diagnoses Not on filedocumented in this encounter
--- OUTSIDE RECORDS SUMMARY | 2024-07-17 03:58 | XMS_ITS | Encounter Summary ---
Author Organization [facility] Address [address] [place] [address]. [place], [place] [address] [place] [address] Care Team Providers Care Dairy Processing Equipment Operator Name Role Phone Unavailable Primary Care Provider Unavailabl e Reason for Visit * Reason Onset Date Comments Refill Request 02/18/2009 [facility]([address] [place] [address]) Encounter Details Date Type Department Care Team (Late st Contact Info) Description 02/18/2009 Telephone [facility] [address] [facility] [place] [address] Raquel Gauthier MD [address] ?? [place] [address] Refill Request (MICROGESTIN FE 08/06 [facility]([address] [place] [address])) Social History Tobacco Use Types Packs/Day Years [...] in [place] and does have appt with [facility] in there on 02/26/09. Can't get in sooner and needs refill. Was given last refill by Dr. Gauthier and is requesting 1 more to get through until appt. Per pt can put on hold at [facility] and then pt will get trasnferred to pharamcy down there. Will give 1 more month as requested. Discussed with pt no further refills. Pt verbalized understanding. * Koki Coyle - 02/18/2009 11:27 AM CDT Pt's last physical was in 12/23. Does through [facility] office. Needs to get refill from them. No physicalappt scheduled. Left msg for pt to call back to discuss. documented in this encounter Plan of Treatment Not on file documented as of this encounter Visit Diagnoses Not on filedocumented in this encounter
--- OUTSIDE RECORDS SUMMARY | 2024-07-17 03:58 | XMS_ITS | Encounter Summary ---
Author Organization [facility] Address [address] [place] [address]. 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
--- OUTSIDE RECORDS SUMMARY | 2024-07-17 03:58 | XMS_ITS | Encounter Summary ---
Author Organization [facility] Address [address] [place] [address]. [place], [place] [address] [place] [address] Care Team Providers Care Paper Cutter Name Role Phone Raquel Gauthier MD Primary Care Provider [phone] None, Provider Primary Care Provider Unavaila ble [...] (Late st Contact Info) Description 07/03/2008 Scan [facility] Information Management [address] [place] [address] , Sheila Tate MD Social History Tobacco [...] on filedocumented in this encounter Care Teams Paper Cutter Relationship Specialty Start Date End Date Raquel Gauthier [facility] [place], [place] [phone] PCP - General 10/30/09 10/30/09 None, MD Aurelio [facility] ?? [place] [address] PCP - General 03/11/14 Bakari Vasquez DO [address] [place] [address] PCP - General 01/31/13 03/10/14 Bakari Vasquez DO [address] [place] [address] PCP - General 01/25/13 01/30/13 Bakari Vasquez DO [address] [place] [address] PCP - General 01/21/13 01/24/13 Bakari Vasquez DO [address] [place] [address] PCP - General 01/09/13 01/20/13 Bakari Vasquez DO [address] [place] [address] PCP - General 01/03/13 01/08/13 Bakari Vasquez DO [address] [place] [address] PCP - General 01/01/13 01/02/13 Bakari Vasquez DO [address] [facility] [address] [place] [address] PCP - General 12/25/12 12/31/12 documented as of this encounter
--- OUTSIDE RECORDS SUMMARY | 2024-07-17 03:58 | XMS_ITS | Encounter Summary ---
Author Organization [facility] Address [address] [place] [address]. [place], [place] [address] [place] [address] Care Team Providers Care Wheel Grinder Name Role Phone Raquel Gauthier MD Primary Care Provider [phone] None, Provider Primary Care Provider Unavaila ble [...] Visit * Reason Comments Discharge Summary (SCAN) [facility] Encounter Details Date Type Department Care Team (Late st Contact Info) Description 07/15/2008 Hospital [facility] [address] [place] [phone] Scanned, Documents Discharge Summary (SCAN) ([facility]) Social History Tobacco Use Types Packs/Day [...] * Amilcar Documents - 07/29/2008 3:00 PM MANAGER HRIS GER HRIS documented in this encounter Plan of Treatment Not on file documented as of this encounter Visit Diagnoses Not on filedocumented in this encounter Care Teams Wheel Grinder Relationship Specialty Start Date End Date Raquel Gauthier MD [employer] ?? [place], [place] [id number] PCP - General 10/30/09 10/30/09 None, MD Aurelio [facility] [employer] ?? [place] [address] PCP - General 03/11/14 Bakari Vasquez DO [address] [place] [address] PCP - General 01/31/13 03/10/14 Bakari Vasquez DO [address] [place] [address] PCP - General 01/25/13 01/30/13 Bakari Vasquez DO [address] [place] [address] PCP - General 01/21/13 01/24/13 Bakari Vasquez DO [address] [place] [address] PCP - General 01/09/13 01/20/13 Bakari Vasquez DO [address] [place] [address] PCP - General 01/03/13 01/08/13 Bakari Vasquez DO [address] [facility] [address] [place] [address] PCP - General 01/01/13 01/02/13 Bakari Vasquez DO [address] [facility] [address] [place] [address] PCP - General 12/25/12 12/31/12 documented as of this encounter
--- OUTSIDE RECORDS SUMMARY | 2024-07-17 03:58 | XMS_ITS | Encounter Summary ---
Author Organization [facility] Address [address] [place] [address]. [place], [place] [address] [place] [address] Care Team Providers Care Lab Courier Name Role Phone Unavailable Primary Care Provider [...] 12/30/2008 Nurse Triage [facility] [address] [place] [address] Raquel Gauthier MD [facility] [address] ?? [place] [address] Medication (PT WAS TO HAVE [...]
--- OUTSIDE RECORDS SUMMARY | 2024-07-17 03:58 | XMS_ITS | Encounter Summary ---
Author Organization [facility] Address [address] [place] [address]. [place], [place] [address] [place] [address] Care Team Providers Care Siding Installer Name Role Phone Unavailable Primary Care Provider Unavailabl e Reason for Visit * Reason Onset Date Comments Fax 06/17/2008 COUL D YOU PLEAS E [facility] DOCUMENTATION [phone]. Encounter Details Date Type Department Care Team (Late Contact Info) Description 06/17/2008 Telephone [place] [id number] [facility] [phone] Raquel Gauthier MD [address] ?? [place] [address] Fax (COUL D YOU PLEASE RE[facility]X [facility] DOCUMENTATION [phone]. ) Social History Tobacco Use Types Packs/Day [...] of this encounter Progress Notes * Koki Cyole - 06/17/2008 9:11 AM CST [facility]axed to [facility] at [facility] as requested. See scanned copy. P CIO documented in this encounter Plan of Treatment Not on file documented as of this encounter Visit Diagnoses Not on filedocumented in this encounter
--- OUTSIDE RECORDS SUMMARY | 2024-07-17 03:58 | XMS_ITS | Encounter Summary ---
Author Organization [facility] Address [address] [place] [address]. [place], [place] [address] [place] [address] Care Team Providers Care Machine Filler Shredder Name Role Phone Unavailable Primary Care Provider [...] (Late st Contact Info) Description 06/12/[address] [place] [address] Raquel Gauthier MD [address] ?? 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 LAY DIRECTOR * Koki Coyle - 06/14/2008 9:37 AM CST Pt informed that form is ready to pick pulling machine operator but pt has to sign consent form that this information canbe released to [facility]. Pt will stop by on her way to work to sign form and pick pulling machine operator copy to [facility] to work. LAY DIRECTOR * Koki Coyle - 06/14/2008 7:59 AM CST Pt informed that if needs additional xanax needs to go through psychiatrist. She has seen in past and will contact that office. Pt states needs FMLA paper work AILEEN. Informed will check on this and get back to her. LAY DIRECTOR * Alecia Huynh RN - 06/12/2008 3:[address] Gauthier, call pt for update. No refill on Xanax. If feels needs refill - refer to Psychiatry. LAY DIRECTOR * Alecia Huynh RN - 06/12/2008 11:41 AM CST Form given to Dr. Gauthier. LAY DIRECTOR documented in this encounter Plan of Treatment Not on file documented as of this encounter Visit Diagnoses Not on filedocumented in this encounter
--- OUTSIDE RECORDS SUMMARY | 2024-07-17 03:58 | XMS_ITS | Encounter Summary ---
Author Organization [facility] Address [address] [place] [place] [address]. 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 [place] [address] PCP - General 10/30/09 10/30/09 None, Aurelio, [address] ?? [place] [address] PCP - General 03/11/14 Bakari Vasquez DO [address] [place] [address] PCP - General 01/31/13 03/10/14 Bakari Vasquez DO [address] [place] [address] PCP - General 01/25/13 01/30/13 Bakari Vasquez DO [address] [place] [address] PCP - General 01/21/13 01/24/13 Bakari Vasquez DO [address] [place] [address] PCP - General 01/09/13 01/20/13 Bakari Vasquez DO [address] [place] [address] PCP - General 01/03/13 01/08/13 Bakari Vasquez DO [address] [place] [address] PCP - General 01/01/13 01/02/13 Bakari Vasquez DO [address] [place] [address] 20 [place] [address] PCP - General 12/25/12 12/31/12 documented as of this encounter
--- OUTSIDE RECORDS SUMMARY | 2024-07-17 03:58 | XMS_ITS | Encounter Summary ---
Author Organization [facility] Address [address] [place] [address]. [place], [place] [address] [place] [address] Care Team Providers Care Ore Roaster Name Role Phone Unavailable Primary Care Provider Unavailabl e Reason for Visit * Reason Onset Date Comments Results 06/11/[address] OOL SAMPLE YESTERDAY, AND IS ASKING IF WE HAVE RECEIVED RESULTS YET? Returned Call 06/11/2008 WILL BE AT CELL PHONE # [phone] Encounter Details Date Type Department Care Team (Late st Contact Info) Description 06/11/2008 Telephone [facility] [address] [facility] [address] Raquel Gauthier MD [address] ?? 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 She states sx are little better. Discussedwill let her know if something comes back positive. Pt verbalized understaning of this information. E REPAIRER * Koki Coyle - 06/11/2008 10:02 AM CST Test for blood in sumi back and negative. Rest of tests are not back yet. E REPAIRER E REPAIRER documented in this encounter Plan of Treatment Not on file documented as of this encounter Visit Diagnoses Not on filedocumented in this encounter
--- OUTSIDE RECORDS SUMMARY | 2024-07-17 03:58 | XMS_ITS | Encounter Summary ---
Author Organization [facility] Address [address] [place] [address]. [place], [place] [address] [place] [address] Care Team Providers Care Lap Grinder Name Role Phone Unavailable Primary Care Provider Unavailabl e Reason for Visit * Reason Onset Date Comments Medication 02/18/2009 running low on B CP, [place] of state, unable to establish with doc there until later this month. Encounter Details Date Type Department Care Team (Late st Contact Info) Description 02/18/2009 Nurse Triage [facility] [address] [place] [address] Raquel Gauthier MD [address] ?? 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 Patient calls requesting refill on [facility] to be called down to [place], [place]. Has appointment on 03/07/09 in [place]. Already given one refill on 12/30/08, no physical since 12/23. Instructed to call back during normal business hours. Verbalizes understanding. documented in this encounter Plan of Treatment Not on file documented as of this encounter Visit Diagnoses Not on filedocumented in this encounter
--- OUTSIDE RECORDS SUMMARY | 2024-07-17 03:58 | XMS_ITS | Encounter Summary ---
Author Organization [facility] Address [address] [place] [address]. [place], [place] [address] [place] [address] Care Team Providers Care Command And Control Specialist Name Role Phone Unavailable Primary Care Provider Unavailabl e Reason for Visit * Reason Onset Date Comments Medication Problem 12/30/2008 Rx for Microg estin not at [facility] Encounter Details Date Type Department Care Team (Late st Contact Info) Description 12/30/2008 Nurse Triage [facility] [address] [place] [address] Koki Mosqueda, workers compensation consultant Problem (Rx for Microgestin not at [facility] 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 RX RE-CALLED/FAXED @ [address] AT [facility]/, WITH PRESCRIBING PROVIDER PCP, DR. GRACIA. PT INFORMED. PT DUE FOR PE, BUT STATES SHE IS MOVING OUT OF STATE. THANKS. documented in this encounter Plan of Treatment Not on file documented as of this encounter Visit Diagnoses Not on filedocumented in this encounter
--- OUTSIDE RECORDS SUMMARY | 2024-07-17 03:58 | XMS_ITS | Encounter Summary ---
Author Organization [facility] Address [address] [place] [address]. [place], [place] [address] [place] [address] Care Team Providers Care Chief Deputy Name Role Phone None, Provider Primary Care [...] (Late st Contact Info) Description 02/13/2010 Scan [facility] [address] [place], [place] [phone] , Sheila Tate MD Social History Tobacco [...] on filedocumented in this encounter Care Teams Chief Deputy Relationship Specialty Start Date End Date None, Provider, PCP - General 03/11/14 Bakari Vasquez DO [address] [place] [address] PCP - General 01/31/13 03/10/14 Bakari Vasquez DO [address] [place] [address] PCP - General 01/25/13 01/30/13 Bakari Vasquez DO [address] [place] [address] PCP - General 01/21/13 01/24/13 Bakari Vasquez DO [address] [place] [address] PCP - General 01/09/13 01/20/13 Bakari Vasquez DO [address] [place] [address] PCP - General 01/03/13 01/08/13 Bakari Vasquez DO [address] [place] [address] PCP - General 01/01/13 01/02/13 Bakari Vasquez DO [address] [place] [address] PCP - General 12/25/12 12/31/12 documented as of this encounter
--- OUTSIDE RECORDS SUMMARY | 2024-07-17 03:58 | XMS_ITS | Encounter Summary ---
Author Organization [facility] Address [address] [place] [address]. [place], [place] [address] [place] [address] Care Team Providers Care Cna Per Diem Name Role Phone Unavailable Primary Care Provider Unavailabl e Reason for Visit * Reason Onset Date Comments Psychiatric Problem 06/14/2008 mom reports pt is suicidal Encounter Details Date Type Department Care Team (Late st Contact Info) Description 06/14/2008 Nurse Triage [facility] [address] [place] [address] Raquel Gauthier MD [address] ?? [place] [address] Psychiatric Problem (mom reports pt [...] to meet them at the ER to slate picker the kids, and they are leaving out the door now, Vangie wants to go in. Reassured and encouraged re: this is a courageous decision and they are doing the right thing. ER OPERATOR documented in this encounter Plan of Treatment Not on file documented as of this encounter Visit Diagnoses Not on filedocumented in this encounter
--- OUTSIDE RECORDS SUMMARY | 2024-07-17 03:59 | XMS_ITS | Encounter Summary ---
Author Organization [facility] Address [address] [place] [address]. 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 [place], [place] [address] PCP - General 10/30/09 10/30/09 None, MD Aurelio [facility] [employer] ?? [place] [address] PCP - General 03/11/14 Bakari Vasquez DO [address] [place] [address] PCP - General 01/31/13 03/10/14 Bakari Vasquez DO [address] [place] [address] PCP - General 01/25/13 01/30/13 Bakari Vasquez DO [address] [place] [address] PCP - General 01/21/13 01/24/13 Bakari Vasquez DO [address] [place] [address] PCP - General 01/09/13 01/20/13 Bakari Vasquez DO [address] [place] [address] PCP - General 01/03/13 01/08/13 Bakari Vasquez DO [address] [facility] [address] [place] [address] PCP - General 01/01/13 01/02/13 Bakari Vasquez DO [address] [facility] [address] [place] [address] PCP - General 12/25/12 12/31/12 documented as of this encounter
--- OUTSIDE RECORDS SUMMARY | 2024-07-17 03:59 | XMS_ITS | Encounter Summary ---
Author Organization [facility] Address [address] [place] [address]. [place], [place] [address] [place] [address] Care Team Providers Care Manipulative Therapy Specialist Name Role Phone Unavailable Primary Care Provider Unavailabl e Reason for Visit * Reason Onset Date Comments Medication 12/29/2007 Encounter Details Date Type Department Care Team (Late st Contact Info) Description 12/29/2007 Telephone [facility] [address] [place] [phone] Raysa Diehl APNP [address] [place], [place] [phone] Medication Social History Tobacco Use Types Packs/Day [...]
--- OUTSIDE RECORDS SUMMARY | 2024-07-17 03:59 | XMS_ITS | Encounter Summary ---
Author Organization [facility] Address [address] [place] [address]. [place], [place] [address] [place] [address] Care Team Providers Care X Ray Developing Machine Operator Name Role Phone Raquel Gauthier MD Primary Care Provider [phone] None, Provider Primary Care Provider Unavaila ble [...] Team (Late st Contact Info) Description 09/15/2007 [facility] Health Information Management [address] [place] [address] Sheila Inman MD Social History Tobacco Use [...] on filedocumented in this encounter Care Teams X Ray Developing Machine Operator Relationship Specialty Start Date End Date Raquel Gauthier MD [facility] [place] ?? [place] [address] PCP - General 10/30/09 10/30/09 None, MD Aurelio [facility] [employer] [facility] ?? [place] [address] PCP - General 03/11/14 Bakari Vasquez DO [address] [place] [address] PCP - General 01/31/13 03/10/14 Bakari Vasquez DO [address] [place] [address] PCP - General 01/25/13 01/30/13 Bakari Vasquez DO [address] [place] [address] PCP - General 01/21/13 01/24/13 Bakari Vasquez DO [address] [place] [address] PCP - General 01/09/13 01/20/13 Bakari Vasquez DO [address] [place] [address] PCP - General 01/03/13 01/08/13 Bakari Vasquez DO [address] [place] [address] PCP - General 01/01/13 01/02/13 Bakari Vasquez DO [address] [facility] [address] [place] [address] PCP - General 12/25/12 12/31/12 documented as of this encounter
--- OUTSIDE RECORDS SUMMARY | 2024-07-17 03:59 | XMS_ITS | Encounter Summary ---
Author Organization [facility] Address [address] [place] [address]. [place], [place] [address] [place] [address] Care Team Providers Care Health Researcher Name Role Phone Unavailable Primary Care Provider Unavailabl e Reason for Visit * Reason Onset Date Comments Work Excuse 05/30/2008 SAW YESTERDAY AND HE SAID HE WOULD WRITE HER A WORK EXCUSE TODAY IF SHE WASN'T BETTER, AND SHE IS WORSE Encounter Details Date Type Department Care Team (Late st Contact Info) Description 05/30/2008 Telephone [facility] [address] [place] [address] Raquel Gauthier MD [address] ?? [place] [address] Work Excuse (SAW YESTERDAY AND [...] asisstance from our office will call back. RONMENTAL HEALTH SANITARIAN documented in this encounter Plan of Treatment Not on file documented as of this encounter Visit Diagnoses Not on filedocumented in this encounter
--- OUTSIDE RECORDS SUMMARY | 2024-07-17 03:59 | XMS_ITS | Encounter Summary ---
Author Organization [facility] Address [address] [place] [address]. [place], [place] [address] [place] [address] Care Team Providers Care Icu Rn Name Role Phone Unavailable Primary Care Provider Unavailabl e Reason for Visit * Reason Onset Date Comments Nausea 05/28/2008 is very sick and went to [facility] er last night but wants to be seen again today will cancel appt with dr gauthier today Encounter Details Date Type Department Care Team (Late st Contact Info) Description 05/28/2008 Telephone [facility] [address] [facility] [address] Raquel Gauthier MD [address] ?? 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 N/V/D - she hasn't drank anything yet this morning. Did go back to [facility] ER this morning and was given Ativan and Zofran for nausea along w/IVF for dehydration. Advised to f/u w/PCP in a couple of days. Transferred to [facility] to schedule ER f/u appt. [facility] ER records from this morning also requested. ESPONDENCE SPECIALIST * Alecia Huynh RN - 05/28/2008 7:47 AM CST [facility] ER records requested. ESPONDENCE SPECIALIST documented in this encounter Plan of Treatment Not on file documented as of this encounter Visit Diagnoses Not on filedocumented in this encounter
--- OUTSIDE RECORDS SUMMARY | 2024-07-17 03:59 | XMS_ITS | Encounter Summary ---
Author Organization [facility] Address [address] [place] [address]. [place], [place] [address] [place] [address] Care Team Providers Care Merchandise Collector Name Role Phone Unavailable Primary Care Provider Unavailabl e Reason for Visit * Reason Onset Date Comments Forms 09/04/2007 PT DROPPED OFF F ORMS - FOR MEDICAL LEAVE - 200 HOURS PER PT ON FORM - FAX # [phone] - ATTN: [facility] Encounter Details Date Type Department Care Team (Late st Contact Info) Description 09/04/2007 Telephone [facility] [address] [place] [address] Mee Hutchinson, GARMENT TURNER [address] [place] [address] Forms (PT DROPPED OFF FORMS - FOR MEDICAL LEAVE - 200 HOURS PER PT ON FORM - FAX # [phone] - ATTN: [facility] ) Social History Tobacco Use Types Packs/Day [...] PM CST Forms faxed and pt notified. RIMENTAL PLASTICS FABRICATOR * Marcy Rod - 09/08/2007 1:28 PM CST When forms are finished they are to be faxed: Attention Michelle Barragan [phone], and pt is to be notified that forms have been completed and faxed. RIMENTAL PLASTICS FABRICATOR * Marcy Rod - 09/08/2007 1:17 PM CST Forms are on Lona's desk. Pt notified. RIMENTAL PLASTICS FABRICATOR * Koki Miramontes - 09/08/2007 12:13 PM CST Do you know anything about her forms? Use her cell when calling back. RIMENTAL PLASTICS FABRICATOR * Marcy Rod - 09/04/2007 3:30 PM CST Forms given to Lona. RIMENTAL PLASTICS FABRICATOR documented in this encounter Plan of Treatment Not on file documented as of this encounter Visit Diagnoses Not on filedocumented in this encounter
--- OUTSIDE RECORDS SUMMARY | 2024-07-17 03:59 | XMS_ITS | Encounter Summary ---
Author Organization [facility] Address [address] [place] [address]. [place], [place] [address] [place] [address] Care Team Providers Care Gas Mask Inspector Name Role Phone Unavailable Primary Care Provider Unavailabl e Reason for Visit * Reason Comments UTI Encounter Details Date Type Department Care Team (Late st Contact Info) Description 10/23/2007 1:00 PM CDT Office Visit [address] [place] [address] Raquel Gracia MD [address] [facility] ?? [place] [address] UTI Social History Tobacco Use Types Packs/Day [...] Body Mass Index 34.31 05/20/2006 1:00 PM TOLL RELIEF OPERATOR documented in this encounter Progress Notes * Raquel Abrahan - 10/25/2007 12:29 PM CDT Emergency Room Clinician accepted by RAQUEL GRACIA on 10/25/2007 at [...] polycystic kidney 3 years ago. Patient has [id number] daughter recently been diagnosed with a nodular [...] (10/23/2007 1:30 PM CDT) SPEC DESCRIPTION URINE [facility] SPECIAL REQUESTS NONE [facility] CULTURE RESULT >100,000 COLONIES/ML ESCHERICHIA COLI [facility] REPORT STATUS FINAL 10/25/2007 [facility] Urine specimen (specimen) 10/23/2007 1:30 PM CDT 10/23/2007 1:31 PM CDT Narrative Organism Antibiotic Method Susceptibility >100,000 colonies/ml escheri wlili coli (prevea lokesh method) AMPICILLIN 4 SENSITIVE [...] S Final Result [facility] [address] [place] [address] [facility] [address] [place] [address] 50 * (ABNORMAL) URINALYSIS, AUTO, W/SCOPE (10/23/2007 1:13 PM CDT) COLOR (U) YELLOW [facility] TRANSPARENCY HAZY(A) [facility] U PH 6.0 5.0 - 9.0 [facility] SPECIFIC GRAVITY (U) 1.020 1.003 - 1.040 [facility] URINE GLUCOSE NEGATIVE NEG [facility] KETONE (U) NEGATIVE NEG [facility] N [facility] LAB PROTEIN NEGATIVE NEG [facility] BILIRUBIN (U) NEGATIVE NEG [facility] UROBILINOGEN 0.2 0.2 - 1.0 eu/dL [facility] BLOOD (U) 2+(A) NEG [facility] LEUKOCYTES (U) 3+(A) NEG [facility] NITRITES NEGATIVE NEG [facility] WBC/HPF 75-100(A) Z3 /hpf [facility] RBC/HPF 20-30(A) ZT3 /hpf [facility] EPI/HPF 0-3 /hpf [facility] BACTERIA (U) TRACE(A) NSEE [facility] CRYSTALS (U) AMORPHOUS FEW [facility] 10/23/2007 1:13 PM CDT 10/23/2007 1:14 PM CDT us Raquel Gracia MD URINE ORDERABLES Final Result [facility] [address] [place] [address] documented in this encounter Visit Diagnoses Diagnosis Urinary tract infection, site not specified- Primary Family history of polycystic kidney documented in this encounter
--- OUTSIDE RECORDS SUMMARY | 2024-07-17 03:59 | XMS_ITS | Encounter Summary ---
Author Organization [facility] Address [address] [place] [address]. [place], [place] [address] [place] [address] Care Team Providers Care Livestock Farmer Name Role Phone Samir Gonzalez MD Primary Care Provider + Reason for Visit * Reason Onset Date Comments Viral Syndrome 01/24/2007 PT STILL NOT FEL ING BETTER PLEASE CALL Encounter Details Date Type Department Care Team (Late st Contact Info) Description 01/24/2007 Telephone [facility] [address] [place] [address] Samir Gonzalez MD [address] [place] [address] Viral Syndrome (PT STILL NOT FELING [...] PM CDT PT REPORTS WENT TO ER [id number] LATE PM WITH DIARRHEA X 3 DAYS. [...] on filedocumented in this encounter Care Teams Livestock Farmer Relationship Specialty Start Date End Date Samir Gonzalez MD [address] [place] [address] PCP - General 04/05/02 07/17/07 documented as of this encounter
--- OUTSIDE RECORDS SUMMARY | 2024-07-17 03:59 | XMS_ITS | Encounter Summary ---
Author Organization [facility] Address [address] [place] [address]. [place], [place] [address] [place] [address] Care Team Providers Care Ic Engineer Name Role Phone Unavailable Primary Care Provider Unavailabl e Encounter Details Date Type Department Care Team (Late st Contact Info) Description 06/10/2008 Orders Only [facility] [address] [facility] [address] Raquel Gauthier MD [facility] [employer] ?? [place], [place] [id number] Social History Tobacco Use Types Packs/Day Years [...] Comments CULTURE STOOL Routine 06/10/2008 1:33 PM BI ARCHITECT documented in this encounter Results * CULTURE STOOL (06/10/2008 1:33 PM BI ARCHITECT) SPEC DESCRIPTION STOOL [facility] SPECIAL REQUESTS NONE [facility] CULTURE RESULT NEGATIVE FOR SALMONELLA,S HIGELLA,CAMP Y AND ECOLI O157 [facility] REPORT STATUS FINAL 06/13/2008 [facility] Stool specimen (specimen) 06/10/2008 1:33 PM BI ARCHITECT 06/10/2008 1:38 PM BI ARCHITECT us Raquel Gauthier MD MICROBIOLOGY - GENERAL ORDERABLE S Final Result Performing Organization Address City/State/[facility] Co de Phone Number [facility] [address] [place] [id number] [facility] [address] [place] [phone] documented in this encounter Visit Diagnoses Not on filedocumented in this encounter
--- OUTSIDE RECORDS SUMMARY | 2024-07-17 03:59 | XMS_ITS | Encounter Summary ---
Author Organization [facility] Address [address] [place] [address]. 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 [place], [place] [phone] PCP - General 10/30/09 10/30/09 None, MD Aurelio [facility] ?? [place] [address] PCP - General 03/11/14 Bakari Vasquez DO [address] [place] [address] PCP - General 01/31/13 03/10/14 Bakari Vasquez DO [address] [place] [address] PCP - General 01/25/13 01/30/13 Bakari Vasquez DO [address] [place] [address] PCP - General 01/21/13 01/24/13 Bakari Vasquez DO [address] [place] [address] PCP - General 01/09/13 01/20/13 Bakari Vasquez DO [address] [place] [address] PCP - General 01/03/13 01/08/13 Bakari Vasquez DO [address] [place] [address] PCP - General 01/01/13 01/02/13 Bakari Vasquez DO [address] [facility] [address] [place] [address] PCP - General 12/25/12 12/31/12 documented as of this encounter
--- OUTSIDE RECORDS SUMMARY | 2024-07-17 03:59 | XMS_ITS | Encounter Summary ---
Author Organization [facility] Address [address] [place] [address]. 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 Not on file Not on file documented as of this encounter Progress Notes * Kyler Fitzgerald - 06/05/2008 11:08 AM CSTAssociated Order(s): OUTSIDE LAB (SCAN) BAG STITCHER documented in this encounter Plan of Treatment Not on file documented as of this encounter Procedures Procedure Name Priority Date/Time Associated Diagnosis Comments OUTSIDE LAB (SCAN ORDER) Routine 05/27/2008 documented in this encounter Results * OUTSIDE LAB (05/27/2008) 05/27/2008 Narrative Procedure Note Zscanned, Documents - 06/05/2008 11:08 AM HANDBAG STITCHER us Documents Scanned SCANNING Final Result documented in this encounter Visit Diagnoses Not on filedocumented in this encounter
--- OUTSIDE RECORDS SUMMARY | 2024-07-17 03:59 | XMS_ITS | Encounter Summary ---
Author Organization [facility] Address [address] [place] [address]. [place], [place] [address] [place] [address] Care Team Providers Care Pulp Bleacher Name Role Phone Samir Gonzalez MD Primary Care Provider + Reason for Visit * Reason Onset Date Comments Refill Request 02/28/2007 CALL PT WHEN REF ILL HAS BEEN CALLED TO PHARMACY. IMETREX 50MG PRN #9. CALL REFILL TO [facility] Clint ANTHONY. Encounter Details Date Type Department Care Team (Late st Contact Info) Description 02/28/2007 Telephone [facility] [address] [place] [phone] Samir Gonzalez MD [facility] [place] [address] Refill Request (CALL PT WHEN [...] on filedocumented in this encounter Care Teams Pulp Bleacher Relationship Specialty Start Date End Date Samir Gonzalez MD [address] [place], [place] [phone] PCP - General 04/05/02 07/17/07 documented as of this encounter
--- OUTSIDE RECORDS SUMMARY | 2024-07-17 03:59 | XMS_ITS | Encounter Summary ---
Author Organization [facility] Address [address] [place] [address]. [place], [place] [address] [place] [address] Care Team Providers Care Coordinate Measuring Machine Operator Name Role Phone Samir Gonzalez MD Primary Care Provider + Reason for Visit * Reason Onset Date Comments Refill Request 02/28/2007 [facility] IMITREX 50MG NEEDED #9 Encounter Details Date Type Department Care Team (Late st Contact Info) Description 02/28/2007 Telephone [facility]ICINE [address] [place] [phone] Samir Gonzalez MD [address] [place] [address] Refill Request ([facility] IMITREX 50MG [...] on filedocumented in this encounter Care Teams Coordinate Measuring Machine Operator Relationship Specialty Start Date End Date Samir Gonzalez MD [address] [place] [address] PCP - General 04/05/02 07/17/07 documented as of this encounter
--- OUTSIDE RECORDS SUMMARY | 2024-07-17 03:59 | XMS_ITS | Encounter Summary ---
Author Organization [facility] Address [address] [place] [address]. [place], [place] [address] [place] [address] Care Team Providers Care Mothercraft Nurse Name Role Phone Unavailable Primary Care Provider Unavailabl e Reason for Visit * Reason Comments Physical Encounter Details Date Type Department Care Team (Late st Contact Info) Description 12/29/2007 7:30 AM CDT Office Visit [facility] [address] [place] [address] Raysa Diehl APNP [address] [place] [address] Physical Social History Tobacco Use Types Packs/Day [...] 37-year-old female who is currently working at [employer] in [employer]. 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 [...] IMPRESSION: 1. Preventative medicine exam performed 2. DIRECTOR OF EMPLOYER SERVICES Status is dysmenorrhea with history of endometriosis. [...] SMEAR) (12/29/2007 10:56 AM CDT) COPATH REPORT ?[facility] ?[address] [place] [address] ? GYNECOLOGIC CYTOLOGY REPORT ? Name: VANGIE YUEN ?Specimen # : [id number] Age: 10 1970 (Age: 37) ?Location: [facility] Lab Sex: F ? Procedure Date: 12/29/2007 Hospital #: [id number] ?Date Processed: 01/02/2008 [facility] Physician(s): Raysa Diehl ? Patient History: LMP: 12-15-07 Mentrual/Preg: Contraceptive: Other:Negative Cancer History: Pertinent History: Negative Treatment History: SPECIMEN: ??Clinic Screening Thin Prep Pap ADEQUACY: ??Satisfactory for Evaluation. DIAGNOSIS: ??NEGATIVE FOR INTRAEPITHELIAL LESIONS OR MALIGNANCY. Demetrius Álvarez (ASCP) Electronically Signed Out On 01/03/2008 ? This document has been printed from the electronic file of the [facility] Information System. This is not an official medical record copy. To obtain an official copy, please refer to the patient's permanent medical record at [facility]. [facility] 12/29/2007 10:5 6 AM CDT 01/02/2008 10:56 AM CDT us Raysa NIEVES PATHOLOGY/CYTOLOGY ORDERABLES Final Result [facility] documented in this encounter Visit Diagnoses Diagnosis Routine general medical examination at a health care facility- Primary documented in this encounter
--- OUTSIDE RECORDS SUMMARY | 2024-07-17 03:59 | XMS_ITS | Encounter Summary ---
Author Organization [facility] Address [address] [place] [address]. [place], [place] [address] [place] [address] Care Team Providers Care Director Advertising Name Role Phone Unavailable Primary Care Provider Unavailabl e Reason for Visit * Reason Comments Recheck Encounter Details Date Type Department Care Team (Late st Contact Info) Description 10/25/2007 11:15 AM CDT Office Visit [address] [place] [address] Raquel Gracia MD [address] ?? [place] [address] Recheck Social History Tobacco Use Types Packs/Day [...] Raquel Gracia - 11/03/2007 12:48 PM CDT Senior Production Manager accepted by RAQUEL GRACIA on 11/03/2007 at [...] CBC within normal limits. Please refer to [facility] for numbers. ASSESSMENT: UTI, clinically symptoms worsening. [...] [facility] LAB WBC/HPF 0-3 Z3 /hpf [facility] RBC/HPF 0-3 ZT3 /hpf [facility] EPI/HPF 0-3 /hpf [facility] BACTERIA (U) TRACE(A) NSEE [facility] MUCUS FEW [facility] 10/25/2007 11:4 0 AM CDT 10/25/2007 11:41 AM CDT Raquel Gracia MD URINE ORDERABLES Final Result [facility] [address] [place] [address] * (ABNORMAL) CBC W/DIFF AUTOMATED (10/25/2007 11:40 [...] [facility] PRV LAB NEUTROPHILS % 70.0 % [facility] PR[facility] RBC 4.53 3.70 - [...] LAB MPV 10.80(H) 6.1 - 10.3 fl [facility] 10/25/2007 11:4 0 AM CDT 10/25/2007 11:41 AM CDT us Raquel Gracia MD LABORATORY Final Result [facility] [address] [place] [address] * COMPREHENSIVE METABOLIC PANEL (10/25/2007 11:40 AM CDT) SODIUM S/P/B 140 133 - 142 mmol/L [facility] POTASSIUM S/P/B 4.0 3.5 - 5.3 mmol/L [facility] CHLORIDE S/P/B 106 99 - 111 mmol/L [facility] CO2 27 22 - 34 mmol/L [facility] BUN 8 7 - 20 mg/dL [facility] CREATININE S/P/B 0.8 0.6 - 1.3 mg/dL [facility] EGFR NON-AFR. AMER. >60 >60 mls/min. [facility] EGFR AFR. AMER. >60 >60 mls/min. [facility] CALCIUM S/P/B 9.1 8.5 - 10.1 mg/dL [facility] GLUCOSE 100 70 - 110 mg/dL [facility] TOTAL PROTEIN S/P/B 7.4 6.4 - 8.2 g/dL [facility] ALBUMIN S/P/B 3.7 3.4 - 5.0 g/dL [facility] AST 13 10 - 37 U/L [facility] ALT 31 30 - 65 U/L [facility] ALKALINE PHOSPHATASE S/P/B 79 50 - 136 U/L [facility] BILIRUBIN TOTAL S/P/B 0.8 0 - 1.0 mg/dL [facility] 10/25/2007 11:4 0 AM CDT 10/25/2007 11:41 AM CDT us Raquel Gracia MD LABORATORY Final Result Performing Organization Address City/State/[facility] Co de Phone Number [facility] [address] [place] [address] documented in this encounter Visit Diagnoses Diagnosis Urinary tract infection, site not specified- Primary Abdominal pain, other specified site documented in this encounter
--- OUTSIDE RECORDS SUMMARY | 2024-07-17 03:59 | XMS_ITS | Encounter Summary ---
Author Organization [facility] Address [address] [place] [address]. 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 [place], [place] [phone] PCP - General 10/30/09 10/30/09 None, MD Aurelio [facility] ?? [place] [address] PCP - General 03/11/14 Bakari Vasquez DO [address] [place] [address] PCP - General 01/31/13 03/10/14 Bakari Vasquez DO [address] [place] [address] PCP - General 01/25/13 01/30/13 Bakari Vasquez DO [address] [place] [address] PCP - General 01/21/13 01/24/13 Bakari Vasquez DO [address] [place] [address] PCP - General 01/09/13 01/20/13 Bakari Vasquez DO [address] [place] [address] PCP - General 01/03/13 01/08/13 Bakari Vasquez DO [address] [place] [address] PCP - General 01/01/13 01/02/13 Bakari Vasquez DO [address] [facility] [address] [place] [address] PCP - General 12/25/12 12/31/12 documented as of this encounter
--- OUTSIDE RECORDS SUMMARY | 2024-07-17 03:59 | XMS_ITS | Encounter Summary ---
Author Organization [facility] Address [address] [place] [address]. [place], [place] [address] [place] [address] Care Team Providers Care Etl Programmer Name Role Phone Raquel Gauthier MD Primary Care Provider [phone] None, Provider Primary Care Provider Unavaila ble [...] Team (Late st Contact Info) Description [facility] [address] [place] [phone] Scanned, Documents ER Note (SCAN) (VOMITING [...] * Amilcar, Documents - 06/18/2008 11:55 AM COMMUNITY LIVING COACH UNITY LIVING COACH * Debbined, Documents - 06/07/2008 11:56 AM COMMUNITY LIVING COACH UNITY LIVING COACH documented in this encounter Plan of Treatment Not on file documented as of this encounter Visit Diagnoses Not on filedocumented in this encounter Care Teams Etl Programmer Relationship Specialty Start Date End Date Raquel Gauthier MD [facility] ?? [place], [place] [phone] PCP - General 10/30/09 10/30/09 None, ProviderMD [facility] ?? [place] [address] PCP - General 03/11/14 Bakari Vasquez DO [address] [place] [address] PCP - General 01/31/13 03/10/14 Bakari Vasquez DO [address] [place] [address] PCP - General 01/25/13 01/30/13 Bakari Vasquez DO [address] [place] [address] PCP - General 01/21/13 01/24/13 Bakari Vasquez DO [address] [place] [address] PCP - General 01/09/13 01/20/13 Bakari Vasquez DO [address] [facility] 20 [place] [address] PCP - General 01/03/13 01/08/13 Bakari Vasquez DO [address] [facility] 20 [place] [address] PCP - General 01/01/13 01/02/13 Bakari Vasquez DO [address] [facility] 20 [place] [address] PCP - General 12/25/12 12/31/12 documented as of this encounter
--- OUTSIDE RECORDS SUMMARY | 2024-07-17 03:59 | XMS_ITS | Encounter Summary ---
Author Organization [facility] Address [address] [place] [address]. [place], [place] [address] [place] [address] Care Team Providers Care Lifestyle Consultant Name Role Phone Unavailable Primary Care Provider Unavailabl e Reason for Visit * Reason Onset Date Comments Forms 09/08/2007 Needs AILEEN Encounter Details Date Type Department Care Team (Late st Contact Info) Description 09/08/[address] [facility] [address] [place] [phone] Mee Hutchinson, OUTSIDE SALES EXECUTIVE [address] [place], [place] [phone] Forms (Needs AILEEN) Social History Tobacco Use [...] LENZ for completion. Koki in triage informed. CLERK documented in this encounter Plan of Treatment Not on file documented as of this encounter Visit Diagnoses Not on filedocumented in this encounter
--- OUTSIDE RECORDS SUMMARY | 2024-07-17 03:59 | XMS_ITS | Encounter Summary ---
Author Organization [facility] Address [address] [place] [address]. [place], [place] [address] [place] [address] Care Team Providers Care Railroad Dispatcher Name Role Phone Unavailable Primary Care Provider Unavailabl e Reason for Visit * Reason Onset Date Comments UTI 11/23/2007 UTI IS BACK - SA ME SYMPTOMS - WAS SEEN ON October Encounter Details Date Type Department Care Team (Late st Contact Info) Description 11/23/2007 Telephone [facility] [address] [facility] [address] Raquel Gauthier MD [address] [employer] ?? [place] [address] UTI (UTI IS BACK - SAME SYMPTOMS [...]
--- OUTSIDE RECORDS SUMMARY | 2024-07-17 03:59 | XMS_ITS | Encounter Summary ---
Author Organization [facility] Address [address] [place] [address]. [place], [place] [address] [place] [address] Care Team Providers Care Digital Asset Specialist Name Role Phone Raquel Gauthier MD Primary Care Provider [phone] Samir Gonzalez MD Primary Care Provider + [...] Team (Late st Contact Info) Description 04/17/2006 [facility] Health Information Management [address] [place] [address] Sheila Inman MD Social History Tobacco [...] filedocumented in this encounter Care Teams Digital Asset Specialist Relationship Specialty Start Date End Date Raquel Gauthier MD [address] [facility] [address] ?? [place], [place] [phone] PCP - General 10/30/09 10/30/09 Samir Gonzalez MD [address] [place], [place] [phone] PCP - General 07/18/07 07/18/07 Samir Gonzalez MD [address] [place], [place] [address] PCP - General 04/05/02 07/17/07 Aurelio Osei MD [address] [place] [address] PCP - General 03/11/14 Bakari Vasquez DO [address] [place] [address] PCP - General 01/31/13 03/10/14 Bakari Vasquez DO [address] [place] [address] PCP - General 01/25/13 01/30/13 Bakari Vasquez DO [address] [place] [address] PCP - General 01/21/13 01/24/13 Bakari Vasquez DO [address] [address] [address] [place] [address] PCP - General 01/09/13 01/20/13 Bakari Vasquez DO [address] [facility] 20 [place] [address] PCP - General 01/03/13 01/08/13 Bakari Vasquez DO [address] [place] [address] 20 [place] [address] PCP - General 01/01/13 01/02/13 Bakari Vasquez DO [address] [place] [address] 20 [place] [address] PCP - General 12/25/12 12/31/12 documented as of this encounter
--- OUTSIDE RECORDS SUMMARY | 2024-07-17 03:59 | XMS_ITS | Encounter Summary ---
Author Organization [facility] Address [address] [place] [address]. [place], [place] [address] [place] [address] Care Team Providers Care Loom Operator Name Role Phone Unavailable Primary Care Provider Unavailabl e Reason for Visit * Reason Comments ER F/U [facility] on 05-27-08 and 05-28-08;flu-like symptoms and anxiety Refill Request Encounter Details Date Type Department Care Team (Late st Contact Info) Description 05/29/2008 9:00 AM SEAT SCOOPER MACHINE Office Visit [facility] [address] [facility] [place] [address] Raquel Gauthier MD [facility] [address] ?? 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 Not on file Not on file documented as of this encounter Last Filed Vital Signs Vital Sign Reading Time Taken Comments Blood Pressure 112/72 05/29/2008 9:00 AM SEAT SCOOPER MACHINE Pulse 60 05/29/2008 9:00 AM SEAT SCOOPER MACHINE Temperature 37.1 ??C (98.8 ??F) 05/29/2008 9:00 AM CS T Respiratory Rate 18 05/29/2008 9:00 AM SEAT SCOOPER MACHINE Oxygen Saturation - - Inhaled Oxygen Concentration - - Weight 87.1 kg (192 lb) 05/29/2008 9:00 AM SEAT SCOOPER MACHINE Height - - Body Mass Index 28.77 [...] patient, with at least 25 minutes in [id number] counseling the patient, answered the patient's questions. [...] twooff. will follow up patient as needed. SCOOPER MACHINE documented in this encounter Plan of Treatment [...]
--- OUTSIDE RECORDS SUMMARY | 2024-07-17 03:59 | XMS_ITS | Encounter Summary ---
Author Organization [facility] Address [address] [place] [address]. [place], [place] [address] [place] [address] Care Team Providers Care Access Rn Name Role Phone Unavailable Primary Care Provider Unavailabl e Reason for Visit * Reason Onset Date Comments Request (Refill) 12/29/2007 SAW ANDREW OLSON P HY TODAY WAS SUPPOSE TO HAVE LOESTRIN CALLED INTO [facility] Encounter Details Date Type Department Care Team (Late st Contact Info) Description 12/29/2007 Telephone [facility] [address] [place] [phone] Andrew Diehl APNP [address] [place] [address] Request (Refill) (PB OLSON PHY TODAY WAS SUPPOSE TO HAVE LOESTRIN CALLED INTO [facility]) Social History Tobacco Use Types Packs/Day [...]
--- OUTSIDE RECORDS SUMMARY | 2024-07-17 03:59 | XMS_ITS | Encounter Summary ---
Author Organization [facility] Address [address] [place] [address]. [place], [place] [address] [place] [address] Care Team Providers Care Operations Systems Specialist Name Role Phone Unavailable Primary Care Provider Unavailabl e Reason for Visit * Reason Onset Date Comments Refill Request 05/28/2008 out of xanax, montero ving a really bad panic attack Encounter Details Date Type Department Care Team (Late st Contact Info) Description 05/28/2008 Nurse Triage [facility] [address] [place] [address] Raquel Gauthier MD [facility] [employer] ?? 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 No answer. Call closed. ABRICATOR * Koki Guerra - 05/28/2008 8:31 PM CST 8:31 pm 2nd attempt - no answer. ABRICATOR * Koki Guerra - 05/28/2008 8:16 PM CST 8:16 pm - 1st attempt. Left msg. On ans. Machine. ABRICATOR documented in this encounter Plan of Treatment Not on file documented as of this encounter Visit Diagnoses Not on filedocumented in this encounter
--- OUTSIDE RECORDS SUMMARY | 2024-07-17 03:59 | XMS_ITS | Encounter Summary ---
Author Organization [facility] Address [address] [place] [address]. [place], [place] [address] [place] [address] Care Team Providers Care Study Coordinator Name Role Phone Unavailable Primary Care Provider Unavailabl e Reason for Visit * Reason Comments Sinus Problem x 1 week Encounter Details Date Type Department Care Team (Late st Contact Info) Description 06/05/2008 2:15 PM DEHORNER Office Visit [facility] [address] [facility] [place] [address] Raquel Gauthier MD [address] ?? [place] [address] Sinus Problem (x 1 week) Social History [...] Comments Blood Pressure 122/88 06/05/2008 2:15 PM DEHORNER Pulse 64 06/05/2008 2:15 PM DEHORNER Temperature 36.7 ??C (98 ??F) 06/05/2008 2:15 PM DEHORNER Respiratory Rate - - Oxygen Saturation - - Inhaled Oxygen Concentration - - Weight 88.8 kg (195 lb 12.8 oz) 06/05/2008 2:15 PM DEHORNER Height - - Body Mass Index 29.34 [...] patient verbalized understanding and agrees to plan. RNER documented in this encounter Plan of Treatment Not on file documented as of this encounter Procedures Procedure Name Priority Date/Time Associated Diagnosis Comments HETEROPHILE ANTIBODIES,SCREEN STAT 06/05/2008 3:12 PM DEHORNER CBC W/DIFF AUTOMATED STAT 06/05/2008 3:12 PM DEHORNER BASIC METABOLIC PANEL Routine 06/05/2008 3:11 PM DEHORNER Hypokalemia CULTURE STREP SCREEN Routine 06/05/2008 3:10 PM DEHORNER STREP A RAPID STAT 06/05/2008 3:10 PM DEHORNER Sorethroat documented in this encounter Results * HETEROPHILE ANTIBODIES,SCREEN (06/05/2008 3:12 PM DEHORNER) Pathologist [facility] HETEROPHILE ANTIBODIES NEGATIVE NEG [facility] 06/05/2008 3:12 PM DEHORNER 06/05/2008 3:17 PM DEHORNER us Raqule Gauthier MD LABORATORY Final Result [facility] [address] [place] [address] * (ABNORMAL) CBC W/DIFF AUTOMATED (06/05/2008 3:12 PM DEHORNER) Pathologist [facility] WBC 5.0 3.0 - 10.5 k/uL EAST [...] [facility] 06/05/2008 3:12 PM DEHORNER 06/05/2008 3:17 PM DEHORNER Raquel Gauthier MD LABORATORY Final Result [facility] [address] [place] [address] * BASIC METABOLIC PANEL (06/05/2008 3:11 PM DEHORNER) Pathologist [facility] SODIUM S/P/B 142 133 - 142 mmol/L [facility] POTASSIUM S/P/B 3.7 3.5 - 5.3 mmol/L [facility] CHLORIDE S/P/B 107 99 - 111 mmol/L [facility] CO2 27 22 - 34 mmol/L [facility] BUN 7 7 - 20 mg/dL [facility] CREATININE S/P/B 0.8 0.6 - 1.3 mg/dL [facility] EGFR NON-AFR. AMER. >60 >60 mls/min. [facility] EGFR AFR. AMER. >60 >60 mls/min. [facility] CALCIUM S/P/B 8.9 8.5 - 10.1 mg/dL [facility] GLUCOSE 80 70 - 110 mg/dL [facility] 06/05/2008 3:11 PM DEHORNER 06/05/2008 3:16 PM DEHORNER Raquel Gauthier MD LABORATORY Final Result [facility] [address] [place] [address] * CULTURE THROAT STREP A ONLY (06/05/2008 3:10 PM DEHORNER) THROAT CULTURE GROUP A STREP No Beta-hemolytic colonies resembling Strep. NOTS [facility] 06/05/2008 3:10 PM DEHORNER 06/05/2008 3:15 PM DEHORNER Raquel Gauthier MD MICROBIOLOGY - GENERAL ORDERABLE S Final Result Performing Organization Address [facility] Co de Phone Number [facility] [address] [place] [address] * RAPID STREP (06/05/2008 3:10 PM DEHORNER) RAPID STREP TEST NEGATIVE NEG [facility] 06/05/2008 3:10 PM DEHORNER 06/05/2008 3:15 PM DEHORNER Raquel Gauthier MD MICROBIOLOGY - GENERAL ORDERABLE S Final Result Performing Organization Address [facility] Co de Phone Number [facility] [address] [place] [address] documented in this encounter Visit Diagnoses Diagnosis Acute sinusitis- Primary Acute sinusitis, unspecified Sorethroat Acute pharyngitis Hypokalemia Hypopotassemia documented in this encounter
--- OUTSIDE RECORDS SUMMARY | 2024-07-17 03:59 | XMS_ITS | Encounter Summary ---
Author Organization [facility] Address [address] [place] [address]. [place], [place] [address] [place] [address] Care Team Providers Care Retail Client Manager Name Role Phone Samir Gonzalez MD Primary Care Provider + Reason for Visit * Reason Onset Date Comments Refill Request 06/12/2007 IMITRIX 50MG 1 A S NEEDED #9 - DEVORAH ANTHONY. PT NEEDS FILLED TODAY. Encounter Details Date Type Department Care Team (Late st Contact Info) Description 06/12/[address] [facility] [address] [place] [phone] Samir Gonzalez MD [address] [place] [address] Refill Request (IMITRIX 50MG 1 NEEDED [...] typed on rx label to sched appt. LBENZENE CRACKING SUPERVISOR documented in this encounter Plan of Treatment Not on file documented as of this encounter Visit Diagnoses Not on filedocumented in this encounter Care Teams Retail Client Manager Relationship Specialty Start Date End Date Samir Gonzalez MD [address] [place] [address] PCP - General 04/05/02 07/17/07 documented as of this encounter
--- OUTSIDE RECORDS SUMMARY | 2024-07-17 03:59 | XMS_ITS | Encounter Summary ---
Author Organization [facility] Address [address] [place] [address]. [place], [place] [address] [place] [address] Care Team Providers Care Immunohematologist Name Role Phone Raquel Gauthier MD Primary Care Provider [phone] Samir Gonzalez MD Primary Care Provider + [...] Team (Late st Contact Info) Description 01/23/2007 [facility] [address] [place] [address] , Sheila Tate MD Social History Tobacco [...] on filedocumented in this encounter Care Teams Immunohematologist Relationship Specialty Start Date End Date Raquel Gauthier MD [address] ?? [place], [place] [phone] PCP - General 10/30/09 10/30/09 Samir Gonzalez MD [address] [place] [address] [phone] PCP - General 07/18/07 07/18/07 Samir Gonzalez MD [address] [place] [address] [id number] PCP - General 04/05/02 07/17/07 Aurelio Osei MD [address] [place] [address] PCP - General 03/11/14 Bakari Vasquez DO [address] [facility] [address] [place], [place] [phone] PCP - General 01/31/13 03/10/14 Bakari Vasquez DO [address] [place] [address] PCP - General 01/25/13 01/30/13 Bakari Vasquez DO [address] [facility] [address] [place] [address] PCP - General 01/21/13 01/24/13 Bakari Vasquez DO [address] [facility] [address] [place] [address] PCP - General 01/09/13 01/20/13 Bakari Vasquez DO [address] [facility] [address] [place] [address] PCP - General 01/03/13 01/08/13 Bakari Vasquez DO [address] [address] PCP - General 01/01/13 01/02/13 Bakari Vasquez DO [address] [address] PCP - General 12/25/12 12/31/12 documented as of this encounter
--- OUTSIDE RECORDS SUMMARY | 2024-07-17 03:59 | XMS_ITS | Encounter Summary ---
Author Organization [facility] Address [address] [place] [address]. [place], [place] [address] [place] [address] Care Team Providers Care Funeral Service Manager Name Role Phone Samir Aiken MD Primary Care Provider + Reason for Visit * Reason Comments Anxiety Panic Attacks resume d 2 weeks On Prozac/Lorazepam in past Prescription Request Wants to try Xanax Encounter Details Date Type Department Care Team (Late st Contact Info) Description 03/31/2006 10:30 AM CDT Office Visit [facility] [address] [place] [phone] Samir Aiken MD [address] [place] [address] Anxiety (Panic Attacks resumed 2 weeks [...] Samir Aiken - 04/06/2006 8:28 AM CDT Security And Privacy Consultant accepted by SAMIR AIKEN on 04/06/2006 at [...] Primary documented in this encounter Care Teams Funeral Service Manager Relationship Specialty Start Date End Date Samir Aiken MD [address] [place] [address] PCP - General 04/05/02 07/17/07 documented as of this encounter
--- OUTSIDE RECORDS SUMMARY | 2024-07-17 03:59 | XMS_ITS | Encounter Summary ---
Author Organization [facility] Address [address] [place] [address]. [place], [place] [phone] [place] [address] Care Team Providers Care Tafe Registrar Name Role Phone Unavailable Primary Care Provider Unavailabl e Reason for Visit * Reason Comments Medication Check Encounter Details Date Type Department Care Team (Late st Contact Info) Description 02/26/2008 3:00 PM CDT Office Visit [address] [place] [phone] Raquel Gauthier MD [address] ?? [place] [address] Medication Check Social History Tobacco Use Types [...] couple of weeks ago. Went to the [facility]. Patient been using Imitrex subcutaneous injection as [...] CDT) TSH 0.84 0.34 - 4.82 Miu/mL [facility] 02/26/2008 3:44 PM CDT 02/26/2008 3:45 PM CDT us Raquel Gauthier MD LABORATORY Final Result [facility] [address] [place] [address] * (ABNORMAL) COMPREHENSIVE METABOLIC PANEL (02/26/2008 3:44 PM CDT) SODIUM S/P/B 141 133 - 142 mmol/L [facility] POTASSIUM S/P/B 4.1 3.5 - 5.3 mmol/L [facility] CHLORIDE S/P/B 108 99 - 111 mmol/L [facility] CO2 24 22 - 34 mmol/L [facility] BUN 8 7 - 20 mg/dL [facility] CREATININE S/P/B 0.9 0.6 - 1.3 mg/dL [facility] EGFR NON-AFR. AMER. >60 >60 mls/min. [facility] EGFR AFR. AMER. >60 >60 mls/min. [facility] CALCIUM S/P/B 9.2 8.5 - 10.1 mg/dL [facility] GLUCOSE 86 70 - 110 mg/dL [facility] TOTAL PROTEIN S/P/B 7.8 6.4 - 8.2 g/dL [facility] ALBUMIN S/P/B 3.9 3.4 - 5.0 g/dL [facility] AST 14 10 - 37 U/L [facility] ALT 34 30 - 65 U/L [facility] ALKALINE PHOSPHATASE S/P/B 78 50 - 136 U/L [facility] BILIRUBIN TOTAL S/P/B 1.2(H) 0 - 1.0 mg/dL [facility] 02/26/2008 3:44 PM CDT 02/26/2008 3:45 PM CDT Raquel Gauthier MD LABORATORY Final Result [facility] [address] [place] [address] * (ABNORMAL) CBC W/DIFF AUTOMATED (02/26/2008 3:44 [...] Final Result [facility] [address] [place] [address] documented in this encounter Visit Diagnoses Diagnosis Anxiety Anxiety state, unspecified Panic attack Panic disorder without agoraphobia Migraine Migraine, unspecified, without mention of intractable migraine without mention of status migrainosus Insomnia Insomnia, unspecified documented in this encounter
--- OUTSIDE RECORDS SUMMARY | 2024-07-17 03:59 | XMS_ITS | Encounter Summary ---
Author Organization [facility] Address [address] [place] [address]. [place], [place] [address] [place] [address] Care Team Providers Care Structural Layout Worker Name Role Phone Samir Gonzalez MD Primary Care Provider + Reason for Visit * Reason Comments Report (SCAN) FMLA Encounter Details Date Type Department Care Team (Late st Contact Info) Description 11/18/2005 Scan [facility] [address] [place] [phone] Scanned, Documents Report (SCAN) (FMLA) Social [...] on filedocumented in this encounter Care Teams Structural Layout Worker Relationship Specialty Start Date End Date Samir Gonzalez MD [address] [place] [address] PCP - General 04/05/02 07/17/07 documented as of this encounter
--- OUTSIDE RECORDS SUMMARY | 2024-07-17 03:59 | XMS_ITS | Encounter Summary ---
Author Organization [facility] Address [address] [place] [address]. [place], [place] [address] [place] [address] Care Team Providers Care Political Advisor Name Role Phone Samir Gonzalez MD Primary Care Provider + Reason for Visit * Reason Onset Date Comments Medication 03/31/2006 Encounter Details Date Type Department Care Team (Late st Contact Info) Description 03/31/2006 Nurse Triage [facility] [address] [place] [address] Argenis Resendiz, family independence case manager Social History Tobacco Use Types Packs/Day Years [...] Information only suggested. VERBAL ORDER GIVEN TO [facility] AT [facility] PER [facility]. documented in this encounter Plan of Treatment Not on file documented as of this encounter Visit Diagnoses Not on filedocumented in this encounter Care Teams Political Advisor Relationship Specialty Start Date End Date Samir Gonzalez MD [address] [place] [address] PCP - General 04/05/02 07/17/07 documented as of this encounter
--- OUTSIDE RECORDS SUMMARY | 2024-07-17 03:59 | XMS_ITS | Encounter Summary ---
Author Organization [facility] Address [address] [place] [address]. [place], [place] [address] [place] [address] Care Team Providers Care Wringer And Setter Name Role Phone Unavailable Primary Care Provider Unavailabl e Reason for Visit * Reason Onset Date Comments Refill Request 04/16/2008 [facility] Encounter Details Date Type Department Care Team (Late st Contact Info) Description 04/16/2008 Telephone [facility] [address] [facility] [place] [address] Raquel Gauthier MD [address] ?? 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
--- OUTSIDE RECORDS SUMMARY | 2024-07-17 03:59 | XMS_ITS | Encounter Summary ---
Author Organization [facility] Address [address] [place] [address]. [place], [place] [address] [place] [address] Care Team Providers Care Manager Membership Name Role Phone Samir Gonzalez MD Primary Care Provider + Reason for Visit * Reason Onset Date Comments Refill Request 05/02/2006 PROTONIX/40 MG/1 QD/#30. [facility] [address] PT REQUESTS CALL BACK Encounter Details Date Type Department Care Team (Late st Contact Info) Description 05/02/2006 Telephone [facility] [address] [place] [phone] Samir Gonzalez MD [address] [place] [address] Refill Request (PROTONIX/40 MG/1 [facility] [...] on filedocumented in this encounter Care Teams Manager Membership Relationship Specialty Start Date End Date Samir Gonzalez MD [address] [place] [address] PCP - General 04/05/02 07/17/07 documented as of this encounter
--- OUTSIDE RECORDS SUMMARY | 2024-07-17 03:59 | XMS_ITS | Encounter Summary ---
Author Organization [facility] Address [address] [place] [address]. [place], [place] [address] [place] [address] Care Team Providers Care Senior Web Services Developer Name Role Phone Unavailable Primary Care Provider Unavailabl e Reason for Visit * Reason Onset Date Comments UTI 10/25/2007 Uti sx are getti ng worse. Encounter Details Date Type Department Care Team (Late st Contact Info) Description 10/25/2007 Telephone [facility] [address] [facility] [place] [address] Raquel Gauthier MD [address] ?? [place] [address] UTI (Uti sx are getting [...]
--- OUTSIDE RECORDS SUMMARY | 2024-07-17 03:59 | XMS_ITS | Encounter Summary ---
Author Organization [facility] Address [address] [place] [address]. 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 [place], [place] [phone] PCP - General 10/30/09 10/30/09 None, MD Aurelio [facility] [place] [address] PCP - General 03/11/14 Bakari Vasquez DO [address] [place] [address] PCP - General 01/31/13 03/10/14 Bakari Vasquez DO [address] [place] [address] PCP - General 01/25/13 01/30/13 Bakari Vasquez DO [address] [place] [address] PCP - General 01/21/13 01/24/13 Bakari Vasquez DO [address] [place] [address] PCP - General 01/09/13 01/20/13 Bakari Vasquez DO [address] [place] [address] PCP - General 01/03/13 01/08/13 Bakari Vasquez DO [address] [place] [address] PCP - General 01/01/13 01/02/13 Bakari Vasquez DO [address] [facility] [address] [place] [address] PCP - General 12/25/12 12/31/12 documented as of this encounter
--- OUTSIDE RECORDS SUMMARY | 2024-07-17 03:59 | XMS_ITS | Encounter Summary ---
Author Organization [facility] Address [address] [place] [address]. [place], [place] [address] [place] [address] Care Team Providers Care Tuberculosis Specialist Name Role Phone Unavailable Primary Care Provider Unavailabl e Encounter Details Date Type Department Care Team (Late st Contact Info) Description 06/10/2008 Orders Only [facility] [address] [facility] [place] [address] Raquel Gauthier MD [facility] [employer] ?? [place], [place] [phone] Social History Tobacco Use Types Packs/Day Years [...] for rest of results to come back. IC POLICY ANALYST documented in this encounter Plan of Treatment Not on file documented as of this encounter Procedures Procedure Name Priority Date/Time Associated Diagnosis Comments CRYPTOSPOR/GIARDIA AG, EIA Routine 06/10/2008 1:34 PM PUBLIC POLICY ANALYST Diarrhea documented in this encounter Results * CRYPTOSPOR/GIARDIA AG, EIA (06/10/2008 1:34 PM PUBLIC POLICY ANALYST) CRYPTOSPORIDIUM ANTIGEN (STOOL)DONT USE NEGATIVE NEG [facility] GIARDIA ANTIGEN (STOOL) NEGATIVE NEG [facility] 06/10/2008 1:34 PM PUBLIC POLICY ANALYST 06/10/2008 1:39 PM PUBLIC POLICY ANALYST us Raquel Gauthier MD BODY FLUIDS AND STOOLS ORDERABLE S Final Result [facility] [address] [place] [address] documented in this encounter Visit Diagnoses Diagnosis Diarrhea documented in this encounter
--- OUTSIDE RECORDS SUMMARY | 2024-07-17 03:59 | XMS_ITS | Encounter Summary ---
Author Organization [facility] Address [address] [place] [address]. [place], [place] [address] [place] [address] Care Team Providers Care Cottrell Operator Name Role Phone Raquel Gauthier MD Primary Care Provider [phone] None, Provider Primary Care Provider Unavaila ble [...] Team (Late st Contact Info) Description [facility]2008 [facility] [address] [place] [phone] Scanned, Documents ER Note (SCAN) (GASTROENTERITIS [...] * Amilcar, Documents - 07/04/2008 11:48 AM MICROBIOLOGY SOIL SCIENTIST OBIOLOGY SOIL SCIENTIST * Amilcar, Documents - 06/18/2008 11:55 AM MICROBIOLOGY SOIL SCIENTIST OBIOLOGY SOIL SCIENTIST documented in this encounter Plan of Treatment Not on file documented as of this encounter Visit Diagnoses Not on filedocumented in this encounter Care Teams Cottrell Operator Relationship Specialty Start Date End Date Raquel Gauthier MD [employer] ?? [place] [address] PCP - General 10/30/09 10/30/09 None, MD Aurelio [address] [employer] [place] ?? [place] [address] PCP - General 03/11/14 Bakari Vasquez DO [address] [place] [address] PCP - General 01/31/13 03/10/14 Bakari Vasquez DO [address] [place] [address] PCP - General 01/25/13 01/30/13 aBkari Vasquez DO [address] [place] [address] PCP - General 01/21/13 01/24/13 Bakari Vasquez DO [address] [place] [address] PCP - General 01/09/13 01/20/13 Bkaari Vasquez DO [address] [place] [address] PCP - General 01/03/13 01/08/13 Bakari Vasquez DO [address] [facility] [address] [place] [address] PCP - General 01/01/13 01/02/13 Bakari Vasquez DO [address] [facility] [address] [place] [address] PCP - General 12/25/12 12/31/12 documented as of this encounter
--- OUTSIDE RECORDS SUMMARY | 2024-07-17 03:59 | XMS_ITS | Encounter Summary ---
Author Organization [facility] Address [address] [place] [address]. [place], [place] [address] [place] [address] Care Team Providers Care Channeler Name Role Phone Unavailable Primary Care Provider Unavailabl e Reason for Visit * Reason Comments Anxiety Encounter Details Date Type Department Care Team (Late st Contact Info) Description 09/01/2007 8:15 AM FIELD ARTILLERY RADAR OPERATOR Office Visit [place] [address] [place] [phone] Mee Hutchinson, [place] [address] [place] [address] Anxiety Social History Tobacco Use Types Packs/Day [...] Comments Blood Pressure 118/80 09/01/2007 8:15 AM FIELD ARTILLERY RADAR OPERATOR Pulse 60 09/01/2007 8:15 AM FIELD ARTILLERY RADAR OPERATOR Temperature - - Respiratory Rate - - Oxygen Saturation - - Inhaled Oxygen Concentration - - Weight 105.2 kg (232 lb) 09/01/2007 8:15 AM FIELD ARTILLERY RADAR OPERATOR Height - - Body Mass Index 34.76 05/20/2006 1:00 PM FIELD ARTILLERY RADAR OPERATOR documented in this encounter Progress Notes * Mee Hutchinson - 09/11/2007 5:26 PM CST Administration Professional accepted by MEE HUTCHINSON on 09/11/2007 at [...] of depression. She has had admissions to [facility] in the past. She has been [...] herself. 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 SMS/jls D ARTILLERY RADAR OPERATOR documented in this encounter Plan of Treatment Not on file documented as of this encounter Visit Diagnoses Diagnosis Depressive disorder, not elsewhere classified- Primary documented in this encounter
--- OUTSIDE RECORDS SUMMARY | 2024-07-17 03:59 | XMS_ITS | Encounter Summary ---
Author Organization [facility] Address [address] [place] [address]. [place], [place] [address] [place] [address] Care Team Providers Care Iron Guardrail Installer Name Role Phone Samir Gonzalez MD Primary Care Provider + Reason for Visit * Reason Onset Date Comments Refill Request 07/22/2006 IMMITREX 50MG MA N. #9. CALL TO [facility] ON RAJ. Encounter Details Date Type Department Care Team (Late st Contact Info) Description 07/22/2006 Telephone [facility] INTERNAL MEDICINE [address] [place] [phone] Samir Gonzalez MD [address] [place] [address] Refill Request (IMMITREX 50MG PRN. #9. CALL TO [facility] ON RAJ. ) Social History Tobacco Use [...] #30/no refills 05-02-06. KEITH was CPE with TANGLED YARN WORKER 05-20-06. Last IM OV 03-31-06. No future appt. FER documented in this encounter Plan of Treatment Not on file documented as of this encounter Visit Diagnoses Not on filedocumented in this encounter Care Teams Iron Guardrail Installer Relationship Specialty Start Date End Date Samir Gonzalez MD [address] [place] [address] PCP - General 04/05/02 07/17/07 documented as of this encounter
--- OUTSIDE RECORDS SUMMARY | 2024-07-17 03:59 | XMS_ITS | Encounter Summary ---
Author Organization [facility] Address [address] [place] [address]. [place], [place] [address] [place] [address] Care Team Providers Care Lining Vamper Name Role Phone Unavailable Primary Care Provider Unavailabl e Encounter Details Date Type Department Care Team (Late st Contact Info) Description 06/10/2008 Orders Only [facility] [address] [facility] [place] [address] Raquel Gauthier MD [facility] [employer] ?? [place], [place] [phone] Social History Tobacco Use Types Packs/Day Years [...] OCCULT BLOOD, FECES,IMMUNO Routine 06/10/2008 1:34 PM MATERIALS COORDINATOR Diarrhea documented in this encounter Results * OCCULT BLOOD, FECES,IMMUNO-VIAL COLLECT (06/10/2008 1:34 PM MATERIALS COORDINATOR) OCCULT BLOOD FECAL NEGATIVE NEG [facility] Comment: New Automated Methodology as of 727294 Performed at the [facility] site COLLECTION DATE [id number] [facility] 06/10/2008 1:34 PM MATERIALS COORDINATOR 06/10/2008 1:39 PM MATERIALS COORDINATOR us Raquel Gauthier MD BODY FLUIDS AND STOOLS ORDERABLE S Final Result [facility] [address] [place] [address] documented in this encounter Visit Diagnoses Diagnosis Diarrhea documented in this encounter
--- OUTSIDE RECORDS SUMMARY | 2024-07-17 03:59 | XMS_ITS | Encounter Summary ---
Author Organization [facility] Address [address] [place] [address]. [place], [place] [address] [place] [address] Care Team Providers Care Mri Technologist Name Role Phone Unavailable Primary Care Provider Unavailabl e Reason for Visit * Reason Comments Urine dysuria Encounter Details Date Type Department Care Team (Late st Contact Info) Description 11/23/2007 10:15 AM CDT Office Visit [address] [phone] Toma Cassidy, ASSESSMENT SPECIALIST [address] [place] [address] Urine (dysuria) Social History Tobacco Use Types [...] Body Mass Index 34.46 05/20/2006 1:00 PM BOTTLE LABEL INSPECTOR documented in this encounter Progress Notes * [...] underwear. LMP: 11/13/07. 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 She is a non-smoker. She states that [...] and call her on her cell phone ([phone]) if the bacteria is not sensitive tothe [...] (11/23/2007 10:56 AM CDT) SPEC DESCRIPTION URINE [facility] SPECIAL REQUESTS NONE [facility] CULTURE RESULT > 100,000 ORGANISMS/ML. ESCHERICHIA COLI [facility] REPORT STATUS FINAL 11/24/2007 [facility] Urine specimen (specimen) 11/23/2007 10:56 AM [...] ORDER JASWANT Final Result Performing Organization Address [facility] de Phone Number [facility] [address] [place] [address] [facility] [address] [place] [address]57 * (ABNORMAL) URINALYSIS, AUTO, W/SCOPE (11/23/2007 10:28 AM CDT) COLOR (U) YELLOW [facility] TRANSPARENCY CLOUDY(A) CLER [facility] U PH 6.0 5.0 - 9.0 [facility] SPECIFIC GRAVITY (U) 1.025 1.003 - 1.040 [facility] URINE GLUCOSE NEGATIVE NEG [facility] KETONE (U) NEGATIVE NEG [facility] PROTEIN 2+(A) NEG [facility] [...] ORDERABLES Final Resul t Performing Organization Address City/[facility]/ZIP Co de Phone Number [facility] [address] [place] [address] documented in this encounter Visit Diagnoses Diagnosis Urinary tract infection, site not specified- Primary documented in this encounter
--- OUTSIDE RECORDS SUMMARY | 2024-07-17 03:59 | XMS_ITS | Encounter Summary ---
Author Organization [facility] Address [address] [place] [address]. [place], [place] [address] [place] [address] Care Team Providers Care Elevator Builder Name Role Phone Unavailable Primary Care Provider Unavailabl e Reason for Visit * Reason Onset Date Comments Forms 06/04/2008 pt asking status of paperwork for her time off/ asking that we fax back adina Encounter Details Date Type Department Care Team (Late Contact Info) Description 06/04/[address] [place] [phone] Raquel Gauthier MD [address] [employer] ?? 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 Gauthier completed paperwork and faxed to Yanet Ramirez at [phone]. Pt states really not feeling much better. Discussed if not feeling better needs to be seen in clinic. Pt will call back to schedule. See scanned copy of paperwork and hard copy mailed to pt. NING DEVELOPMENT MANAGER documented in this encounter Plan of Treatment Not on file documented as of this encounter Visit Diagnoses Not on filedocumented in this encounter
--- OUTSIDE RECORDS SUMMARY | 2024-07-17 03:59 | XMS_ITS | Encounter Summary ---
Author Organization [facility] Address [address] [place] [address]. [place], [place] [address] [place] [address] Care Team Providers Care Radiation Protection Technician Name Role Phone Unavailable Primary Care Provider Unavailabl e Reason for Visit * Reason Onset Date Comments Follow Up Call 06/05/2008 STILL NOT FEELIN G BETTER SAW DR GRACIA LAST WEEK. NOW SINUSES CONGESTION AND COUGH Encounter Details Date Type Department Care Team ([facility] Contact Info) Description 06/05/[address] [place] [phone] Raquel Gracia MD [address] ?? [place] [address] Follow Up Call (STILL NOT FEELING BETTER [...] Would like appt today. Transf to schedule. ING AND BRUSHING MACHINE OPERATOR documented in this encounter Plan of Treatment Not on file documented as of this encounter Visit Diagnoses Not on filedocumented in this encounter
--- OUTSIDE RECORDS SUMMARY | 2024-07-17 03:59 | XMS_ITS | Encounter Summary ---
Author Organization [facility] Address [address] [place] [address]. [place], [place] [address] [place] [address] Care Team Providers Care Wound Care Technician Name Role Phone Samir Gonzalez MD Primary Care Provider + Reason for Visit * Reason Comments Physical Encounter Details Date Type Department Care Team (Late [facility] Info) Description 05/20/2006 1:00 PM PAPIER MACHE' MOLDER Office Visit [facility]) OBSTETRICS/GYNECOLOGY [address] [place] [phone] Zully Palacio, NP [address] [place] [address] Physical Social History Tobacco Use Types Packs/Day [...] Comments Blood Pressure 100/66 05/20/2006 1:00 PM PAPIER MACHE' MOLDER Pulse 80 05/20/2006 1:00 PM PAPIER MACHE' MOLDER Temperature - - Respiratory Rate - - Oxygen Saturation - - Inhaled Oxygen Concentration - - Weight 82.1 kg (181 lb) 05/20/2006 1:00 PM PAPIER MACHE' MOLDER Height 174 cm (5' 8.5 ) 05/20/2006 1:00 PM PAPIER MACHE' MOLDER Body Mass Index 27.12 05/20/2006 1:00 PM PAPIER MACHE' MOLDER documented in this encounter Progress Notes * [...] current or history of domestic violence. Occupation: [employer]. HEALTH HABITS: Smokes: denies. Recreational drug use: denies. She does exercises by sougou, 1/2 hour 7 days a week. Self [...] but it caused migraines. Discussed using the [employer] and patient handout was given. Patient is [...] contacted with results of tests done per [facility] orders. 3. Return to the clinic annually and as needed. 4. Mammogram: Screening is current. 5. Colonoscopy: Patient does not meet age requirements at this time. Vangie leaves with no further questions or concerns and verbalizes understanding the plan of care. ER MACHE' MOLDER documented in this encounter Plan of Treatment Not on file documented as of this encounter Procedures Procedure Name Priority Date/Time Associated Diagnosis Comments CYTOPATH CERV/VAG INTERPRET (PAP SMEAR) Routine 05/20/2006 9:58 AM PAPIER MACHE' MOLDER documented in this encounter Results * CYTOPATH CERV/VAG INTERPRET (PAP SMEAR) (05/20/2006 9:58 AM PAPIER MACHE' MOLDER) COPATH REPORT ?[facility] ?[address] [id number] ? GYNECOLOGIC CYTOLOGY REPORT ? Name: VANGIE YUEN Radha ?Specimen # : [id number] Age: 10 1970 (Age: 36) ?Location: [facility] Sex: F ? Procedure Date: 05/20/2006 Hospital #: [id number] ?Date Processed: 05/24/2006 [facility] Physician(s): Zully Palacio N.P. ? Patient History: LMP: 05-10-06 Mentrual/Preg: Contraceptive: Other:Negative Cancer History: Pertinent History: Negative Treatment History: SPECIMEN: ??Clinic Screening Thin Prep Pap ADEQUACY: ??Satisfactory for Evaluation. DIAGNOSIS: ??NEGATIVE FOR INTRAEPITHELIAL LESIONS OR MALIGNANCY. Demetrius Lomeli (ASCP) Electronically Signed Out On 05/25/2006 ? This document has been printed from the electronic file of the [facility] Information System. This is not an official medical record copy. To obtain an official copy, please refer to the patient's permanent medical record at [facility]. [facility] 05/20/2006 9:58 AM PAPIER MACHE' MOLDER 05/24/2006 9:58 AM PAPIER MACHE' MOLDER us Zully Palacio APNP PATHOLOGY/CYTOLOGY ORDERA BLES Final Result [facility] documented in this encounter Visit Diagnoses Not on filedocumented in this encounter Care Teams Wound Care Technician Relationship Specialty Start Date End Date Samir Gonzalez MD [address] [place] [address] PCP - General 04/05/02 07/17/07 documented as of this encounter
--- OUTSIDE RECORDS SUMMARY | 2024-07-17 03:59 | XMS_ITS | Encounter Summary ---
Author Organization [facility] Address [address] [place] [address]. [place] [place] [address] [place] [address] Care Team Providers Care Central Stores Attendant Name Role Phone Samir Gonzalez MD Primary Care Provider + Reason for Visit * Reason Onset Date Comments Refill Request 05/30/2006 PROZAC 10 MG 1 D AY Q30, LORAZAPAM 1 MG 1 AT 8:00 PM Q30, [employer] SEYMOUR ANTHONY Encounter Details Date Type Department Care Team (Late st Contact Info) Description 05/30/2006 Telephone [facility] INTERNAL MEDICINE [address] [place] [phone] Samir Gonzalez MD [facility] [place] [address] Refill Request (PROZAC 10 MG [...] as of this encounter Progress Notes * Shalra Mcmillan - 05/30/2006 4:27 PM CST All protocol parameters met to refill Fluoxetine 10 in am and Lorazepam 1 at 8 pm nightly for 6 months. MOLD COATER documented in this encounter Plan of Treatment Not on file documented as of this encounter Visit Diagnoses Diagnosis Panic disorder without agoraphobia documented in this encounter Care Teams Central Stores Attendant Relationship Specialty Start Date End Date Samir Gonzalez MD [address] [place] [address] PCP - General 04/05/02 07/17/07 documented as of this encounter
--- OUTSIDE RECORDS SUMMARY | 2024-07-17 03:59 | XMS_ITS | Encounter Summary ---
Author Organization [facility] Address [address] [place] [address]. [place], [place] [address] [place] [address] Care Team Providers Care Chiropractic Neurologist Name Role Phone Unavailable Primary Care Provider Unavailabl e Reason for Visit * Reason Onset Date Comments Diarrhea 06/10/2008 Still has diarrh ea-has lost 5 # since her appt. last week. Also her sinus infection has not improved. Encounter Details Date Type Department Care Team (Late st Contact Info) Description 06/10/2008 Telephone [facility] [address] [facility] [place] [address] Raquel Gauthier MD [address] ?? 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 Works at [employer]. Per Dr. Gauthier okay to give off of work and also need to stool culture and O and P and should referto GI. Pt informed of this and will come and grape picker info at clinic. Also agreeable to refer to GI.And will fax work excuse to [phone]. Pt aware and will grape picker for testing stool. DRINIER OPERATOR documented in this encounter Plan of Treatment Not on file documented as of this encounter Results * OCCULT BLOOD, FECES,IMMUNO-VIAL COLLECT (06/10/2008 1:34 PM FOURDRINIER OPERATOR) OCCULT BLOOD FECAL NEGATIVE NEG [facility] Comment: New Automated Methodology as of [id number] Performed at the [facility] site COLLECTION DATE [id number] [facility] 06/10/2008 1:34 PM FOURDRINIER OPERATOR 06/10/2008 1:39 PM FOURDRINIER OPERATOR Raquel Gauthier MD BODY FLUIDS AND STOOLS ORDERABLE S Final Result [facility] [address] [place] [address] * CRYPTOSPOR/GIARDIA AG, EIA (06/10/2008 1:34 PM FOURDRINIER OPERATOR) CRYPTOSPORIDIUM ANTIGEN (STOOL)DONT USE NEGATIVE NEG [facility] GIARDIA ANTIGEN (STOOL) NEGATIVE NEG [facility] 06/10/2008 1:34 PM FOURDRINIER OPERATOR 06/10/2008 1:39 PM FOURDRINIER OPERATOR Raquel Gauthier MD BODY FLUIDS AND STOOLS ORDERABLE S Final Result [facility] [address] [place] [address] documented in this encounter Visit Diagnoses Diagnosis Diarrhea- Primary documented in this encounter
--- OUTSIDE RECORDS SUMMARY | 2024-07-17 03:59 | XMS_ITS | Encounter Summary ---
Author Organization [facility] Address [address] [place] [address]. [place], [place] [address] [place] [address] Care Team Providers Care Cattle Manager Name Role Phone Unavailable Primary Care Provider Unavailabl e Reason for Visit * Reason Comments Sinus Problem x 1 week Encounter Details Date Type Department Care Team (Late st Contact Info) Description 07/28/2007 3:00 PM AUTOMOBILE MECHANIC Office Visit [facility] INTERNAL MEDICINE [address] [place] [address] [place] [address] Lisa Montana APNP Sinus Problem (x 1 [...] Comments Blood Pressure 122/90 07/28/2007 3:00 PM AUTOMOBILE MECHANIC Pulse 76 07/28/2007 3:00 PM AUTOMOBILE MECHANIC Temperature 36.8 ??C (98.2 ??F) 07/28/2007 3:00 [...] needs to be seen before next refill. MOBILE MECHANIC documented in this encounter Plan of Treatment Not on file documented as of this encounter Visit Diagnoses Not on filedocumented in this encounter
--- OUTSIDE RECORDS SUMMARY | 2024-07-17 03:59 | XMS_ITS | Encounter Summary ---
Author Organization [facility] Address [address] [place] [address]. [place], [place] [address] [place] [address] Care Team Providers Care Bakery Manager Name Role Phone Unavailable Primary Care Provider Unavailabl e Reason for Visit * Reason Onset Date Comments Refill Request 10/12/2007 immetrex injecta bles [facility] Encounter Details Date Type Department Care Team (Late st Contact Info) Description 10/12/[address] [place] [phone] Mee Hutchinson, ANATOMY PROFESSOR [address] [place] [address] Refill Request (immetrex injectables [facility]) Social History Tobacco Use Types Packs/Day [...] CDT Order received from Dr Watson. * Sharla Sarkar - 10/12/2007 2:24 PM CDT Needed [...]
--- OUTSIDE RECORDS SUMMARY | 2024-07-17 03:59 | XMS_ITS | Encounter Summary ---
Author Organization [facility] Address [address] [place] [address]. [place], [place] [address] [place] [address] Care Team Providers Care Electrical Designer Name Role Phone Unavailable Primary Care Provider Unavailabl e Reason for Visit * Reason Comments Medication Check Requests Imtrex pen Encounter Details Date Type Department Care Team (Late st Contact Info) Description 10/06/2007 1:45 PM CDT Office Visit [facility] [address] [place] [phone] Mee Hutchinson, EXECUTIVE SALES MANAGER [address] [place], [place] [phone] Medication Check (Requests Imtrex pen) Social History [...] Body Mass Index 34.16 05/20/2006 1:00 PM PIPE OR STEAM FITTER FURNACE INSTALLER documented in this encounter Progress Notes * Mee Vince Hutchinson - 10/16/2007 12:24 PM CDT Care Companion accepted by MEE HUTCHINSON on 10/16/2007 at [...] process of receiving chemotherapy. She worked at [employer] d felt that she was unable to [...]
--- OUTSIDE RECORDS SUMMARY | 2024-07-17 03:59 | XMS_ITS | Encounter Summary ---
Author Organization [facility] Address [address] [place] [address]. [place], [place] [address] [place] [address] Care Team Providers Care Marine Equipment Test Engineer Name Role Phone Unavailable Primary Care Provider Unavailabl e Reason for Visit * Reason Onset Date Comments Forms 09/08/2007 Encounter Details Date Type Department Care Team (Late st Contact Info) Description 09/08/[address] [phone] Samir Gonzalez MD [address] [place] [address] Forms Social History Tobacco Use Types Packs/Day [...] CST Pt notified that records are on Apptera's desk. When they are done pt is to be called and records areto be faxed to [phone]. CUPID SPECIALISTS * Koki Miramontes - 09/08/2007 12:28 PM CST Forms cannot be found per favio. Pt will get another set and get them to clinic. CUPID SPECIALISTS documented in this encounter Plan of Treatment Not on file documented as of this encounter Visit Diagnoses Not on filedocumented in this encounter
--- OUTSIDE RECORDS SUMMARY | 2024-07-17 03:59 | XMS_ITS | Encounter Summary ---
Author Organization [facility] Address [address] [place] [address]. [place], [place] [address] [place] [address] Care Team Providers Care House Director Name Role Phone Unavailable Primary Care Provider Unavailabl e Reason for Visit * Reason Onset Date Comments Results 10/25/2007 Ultrasound Encounter Details Date Type Department Care Team (Late st Contact Info) Description 10/25/2007 Telephone [facility] [address] [facility] [place] [address] Raquel Gauthier MD [address] ?? [place] [address] Results (Ultrasound) Social History Tobacco Use Types [...]
--- OUTSIDE RECORDS SUMMARY | 2024-07-17 03:59 | XMS_ITS | Encounter Summary ---
Author Organization [facility] Address [address] [place] [address]. [place], [place] [address] [place] [address] Care Team Providers Care Resident Program Specialist Name Role Phone Unavailable Primary Care Provider Unavailabl e Reason for Visit * Reason Onset Date Comments Refill Request 06/07/2008 pt requesting re fill of xanax - is completely out and feels very anxious Encounter Details Date Type Department Care Team (Late st Contact Info) Description 06/07/2008 Nurse Triage [facility] [address] [place] [address] Raquel Gauthier MD [address] ?? 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 GNER documented in this encounter Plan of Treatment Not on file documented as of this encounter Visit Diagnoses Not on filedocumented in this encounter
--- OUTSIDE RECORDS SUMMARY | 2024-07-17 03:59 | XMS_ITS | Encounter Summary ---
Author Organization [facility] Address [address] [place] [address]. 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 Not on file Not on file documented as of this encounter Progress Notes * Kylre Fitzgerald - 06/05/2008 11:33 AM CSTAssociated Order(s): OUTSIDE LAB (SCAN) RY MANAGER documented in this encounter Plan of Treatment Not on file documented as of this encounter Procedures Procedure Name Priority Date/Time Associated Diagnosis Comments OUTSIDE LAB (SCAN ORDER) Routine 05/28/2008 documented in this encounter Results * OUTSIDE LAB (05/28/2008) 05/28/2008 Narrative Procedure Note Zscanned, Documents - 06/05/2008 11:33 AM BAKERY MANAGER us Documents Scanned SCANNING Final Result documented in this encounter Visit Diagnoses Not on filedocumented in this encounter
--- OUTSIDE RECORDS SUMMARY | 2024-07-17 03:59 | XMS_ITS | Encounter Summary ---
Author Organization [facility] Address [address] [place] [address]. [place], [place] [address] [place] [address] Care Team Providers Care Emergency Man Name Role Phone Samir Gonzalez MD Primary Care Provider + Reason for Visit * Reason Onset Date Comments Essure 2006 HAS ?'S Encounter Details Date Type Department Care Team (Late st Contact Info) Description 2006 Telephone [facility] [address] [place] [address] Cuong Garland [address] [place] [address] Essure (HAS ?'S) Social History Tobacco Use [...] CYCLES ET WOULD LIKE TO EST W/[facility] ENGRAVER PANTOGRAPH PROVIDER LMP 05/10/06 LAST PAP 2004 ADVISE PT DAVID CPE PT V/U ET AGREED TO POC. documented in this encounter Plan of Treatment Not on file documented as of this encounter Visit Diagnoses Not on filedocumented in this encounter Care Teams Emergency Man Relationship Specialty Start Date End Date Samir Gonzalez MD [address] [place] [address] PCP - General 04/05/02 07/17/07 documented as of this encounter
--- OUTSIDE RECORDS SUMMARY | 2024-07-17 03:59 | XMS_ITS | Encounter Summary ---
Author Organization [facility] Address [address] [place] [address]. [place], [place] [address] [place] [address] Care Team Providers Care Ticket Marker Name Role Phone Unavailable Primary Care Provider Unavailabl e Reason for Visit * Reason Onset Date Comments Refill Request 05/03/2008 XANAX 1 MG PLEAS E CALL TO [facility] ON Encounter Details Date Type Department Care Team (Late st Contact Info) Description 05/03/[address] [place] [address] Raquel Gauthier MD [address] ?? 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
--- OUTSIDE RECORDS SUMMARY | 2024-07-17 03:59 | XMS_ITS | Encounter Summary ---
Author Organization [facility] Address [address] [place] [address]. 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 [place], [place] [id number] PCP - General 10/30/09 10/30/09 None, MD Aurelio [facility] ?? [place] [address] PCP - General 03/11/14 Bakari Vasquez DO [address] [place] [address] PCP - General 01/31/13 03/10/14 Bakari Vasquez DO [address] [place] [address] PCP - General 01/25/13 01/30/13 Bakari Vasquez DO [address] [place] [address] PCP - General 01/21/13 01/24/13 Bakari Vasquez DO [address] [place] [address] PCP - General 01/09/13 01/20/13 Bakari Vasquez DO [address] [place] [address] PCP - General 01/03/13 01/08/13 Bakari Vasquez DO 501 [facility] [address] [place] [address] PCP - General 01/01/13 01/02/13 Bakari Vasquez DO 501 [facility] [address] [place] [address] PCP - General 12/25/12 12/31/12 documented as of this encounter
--- OUTSIDE RECORDS SUMMARY | 2024-07-17 04:00 | XMS_ITS | Encounter Summary ---
Author Organization [facility] Address [address] [place] [address]. [place], [place] [address] [place] [address] Care Team Providers Care Electronics Maintenance Technician Name Role Phone Samir Gonzalez MD Primary Care Provider + Reason for Visit * Reason Comments Image (SCAN) ABD FLAT AND UPRIGHT Encounter Details Date Type Department Care Team (Late st Contact Info) Description 11/11/2005 Scan [facility] BUSINESS OFFICE [address] [place] [phone] Scanned, Documents Image (SCAN) (ABD FLAT [...] on filedocumented in this encounter Care Teams Electronics Maintenance Technician Relationship Specialty Start Date End Date Samir Gonzalez MD [address] [place] [address] PCP - General 04/05/02 07/17/07 documented as of this encounter
--- OUTSIDE RECORDS SUMMARY | 2024-07-17 04:00 | XMS_ITS | Encounter Summary ---
Author Organization [facility] Address [address] [place] [address]. [place], [place] [address] [place] [address] Care Team Providers Care Quantitative Research Analyst Name Role Phone Raquel Gauthier MD Primary Care Provider [phone] Samir Gonzalez MD Primary Care Provider + Samir Gonzalez MD Primary Care Provider + None, Provider Primary Care Provider Unavaila ble Manarang, Don DO Primary Care Provider [phone] Manarang, Don DO Primary Care Provider [phone] Manarang, Don DO Primary Care Provider [phone] Manarang, Don DO Primary Care Provider [phone] Manarang, Don DO Primary Care Provider [phone] Manarang, Don DO Primary Care Provider [phone] Manarang, Don DO Primary Care Provider [phone] Encounter Details Date Type Department Care Team (Late st Contact Info) Description 09/23/2004 Scan [facility] Health Information Management [facility] [place] [address] , Sheila Tate MD Social [...] on filedocumented in this encounter Care Teams Quantitative Research Analyst Relationship Specialty Start Date End Date Raquel Gauthier MD [address] ?? [place] [address] PCP - General 10/30/09 10/30/09 Samir Gonzalez MD [address] [place] [address] [id number] PCP - General 07/18/07 07/18/07 Samir Gonzalez MD [address] [place] [address] [id number] PCP - General 04/05/02 07/17/07 Aurelio Osei MD [address] [place] [address] PCP - General 03/11/14 Bakari Vasquez DO [address] [place] [address] PCP - General 01/31/13 03/10/14 Bakari Vasquez DO [address] [place] [address] PCP - General 01/25/13 01/30/13 Bakari Vasquez DO [address] [place] [address] PCP - General 01/21/13 01/24/13 Bakari Vasquez DO [address] [place] [address] PCP - General 01/09/13 01/20/13 Bakari Vasquez DO 501 [facility] [address] [place] [address] PCP - General 01/03/13 01/08/13 Bakari Vasquez DO 501 [facility] [address] [place] [address] PCP - General 01/01/13 01/02/13 Bakari Vasquez DO 501 [facility] [address] [place], [place] [phone] PCP - General 12/25/12 12/31/12 documented as of this encounter
--- OUTSIDE RECORDS SUMMARY | 2024-07-17 04:00 | XMS_ITS | Encounter Summary ---
Author Organization [facility] Address [address] [place] [address]. [place], [place] [address] [place] [address] Care Team Providers Care Arcade Attendant Name Role Phone Samir Gonzalez MD Primary Care Provider + Reason for Visit * Consultation/Treatment (Routine) - Closed Specialty Diagnoses / Procedures Referred By Mikie oswald Referred To Contact GENERAL SURGERY / SURGERY Diagnoses POST OP Procedures [facility] [address] [place] [address] Phone: tel: fax: Silck Blake MD Referral ID Status Reason Start Date Expiration Date Visits Re quested Visits Authorized [id number] Closed 25 25 Encounter Details Date Type Department Care Team (Late st Contact Info) Description 07/02/2005 11:20 AM PRINCIPAL ANDROID DEVELOPER Office Visit [facility] [address] [address] [place] [address] Shawn Parkinson, RN [address] [place] [address] Social History Tobacco Use Types Packs/Day Years [...] * Shawn Parkinson - 07/07/2005 11:54 AM PRINCIPAL ANDROID DEVELOPER Vangie is here following a laparoscopic cholecystectomy [...] usual physician for any other problems. [id number] CIPAL ANDROID DEVELOPER CIPAL ANDROID DEVELOPER documented in this encounter Plan of Treatment Not on file documented as of this encounter Visit Diagnoses Not on filedocumented in this encounter Care Teams Arcade Attendant Relationship Specialty Start Date End Date Samir Gonzalez MD [address] [place] [address] PCP - General 04/05/02 07/17/07 documented as of this encounter
--- OUTSIDE RECORDS SUMMARY | 2024-07-17 04:00 | XMS_ITS | Encounter Summary ---
Author Organization [facility] Address [address] [place] [address]. [place], [place] [address] [place] [address] Care Team Providers Care Trolley Operator Name Role Phone Raquel Gauthier MD Primary Care Provider [phone] Samir Gonzalez MD Primary Care Provider + [...] Team (Late st Contact Info) Description 06/18/2004 [facility] Health Information Management [address] [place] [address] Sheila Inman MD Social History Tobacco [...] on filedocumented in this encounter Care Teams Trolley Operator Relationship Specialty Start Date End Date Raquel Gauthier MD [address] [employer] ?? [place] [address] PCP - General 10/30/09 10/30/09 Samir Gonzalez MD [address] [place] [address] [phone] PCP - General 07/18/07 07/18/07 Samir Gonzalez MD [address] [place] [address] [id number] PCP - General 04/05/02 07/17/07 Aurelio Osei MD [address] [place] [address] PCP - General 03/11/14 Bakari Vasquez DO [address] [place] [address] PCP - General 01/31/13 03/10/14 Bakari Vasquez DO [address] [place] [address] PCP - General 01/25/13 01/30/13 Bakari Vasquez DO [address] [place] [address] PCP - General 01/21/13 01/24/13 Bakari Vasquez DO [address] [place] [address] PCP - General 01/09/13 01/20/13 Bakari Vasquez DO 501 [facility] [address] [place] [address] PCP - General 01/03/13 01/08/13 Bakari Vasquez DO 501 [facility] [address] [place] [address] PCP - General 01/01/13 01/02/13 Bakari Vasquez DO 501 [facility] [address] [place], [place] [phone] PCP - General 12/25/12 12/31/12 documented as of this encounter
--- OUTSIDE RECORDS SUMMARY | 2024-07-17 04:00 | XMS_ITS | Encounter Summary ---
Author Organization [facility] Address [address] [place] [address]. [place], [place] [address] [place] [address] Care Team Providers Care Drainlayer Name Role Phone Samir Gonzalez MD Primary Care Provider + Reason for Visit * Reason Onset Date Comments Other 11/18/2005 YANETH DROPPED OFF FORM LAST WEEK/IS IT COMPLETED? Encounter Details Date Type Department Care Team (Late st Contact Info) Description 11/18/2005 Telephone [facility] INTERNAL MEDICINE [address] [place] [phone] Samir Gonzalez MD [address] [place] [address] QUESTIONS (YANETH DROPPED OFF FORM LAST [...] AM CDT Pt advised form ready. Will cotton picker operator at PSR desk. * Miladis Finn - 11/18/2005 9:33 AM CDT working on it now. documented in this encounter Plan of Treatment Not on file documented as of this encounter Visit Diagnoses Not on filedocumented in this encounter Care Teams Drainlayer Relationship Specialty Start Date End Date Samir Gonzalez MD [address] [place] [address] PCP - General 04/05/02 07/17/07 documented as of this encounter
--- OUTSIDE RECORDS SUMMARY | 2024-07-17 04:00 | XMS_ITS | Encounter Summary ---
Author Organization [facility] Address [address] [place] [address]. [place], [place] [address] [place] [address] Care Team Providers Care Field Nurse Case Manager Name Role Phone Raquel Gauthier MD Primary Care Provider [phone] Samir Gonzalez MD Primary Care Provider + [...] (Late st Contact Info) Description 09/03/2000 Scan [facility] Health Information Management [facility] [address] [place], [place] [phone] , Sheila Tate MD Social History Tobacco [...] on filedocumented in this encounter Care Teams Field Nurse Case Manager Relationship Specialty Start Date End Date Raquel Gauthier MD [address] [facility] ?? [place] [address] PCP - General 10/30/09 10/30/09 Samir Gonzalez MD [address] [place] [address] PCP - General 07/18/07 07/18/07 Samir Gonzalez MD [address] [place] [address] [phone] PCP - General 04/05/02 07/17/07 [place] [address] [place] [address] PCP - General 03/11/14 Bakari Vasquez DO [address] [place] [address] PCP - General 01/31/13 03/10/14 Bakari Vasquez DO [address] [place] [address] PCP - General 01/25/13 01/30/13 Bakari Vasquez DO [address] [place] [address] PCP - General 01/21/13 01/24/13 Bakari Vasquez DO [address] [place] [address] PCP - General 01/09/13 01/20/13 Bakari Vasquez DO 501 [facility] [address] [place] [address] PCP - General 01/03/13 01/08/13 Bakari Vasquez DO 501 [facility] [address] [place] [address] PCP - General 01/01/13 01/02/13 Bakari Vasquez DO 501 [facility] [address] [place] [address] PCP - General 12/25/12 12/31/12 documented as of this encounter
--- OUTSIDE RECORDS SUMMARY | 2024-07-17 04:00 | XMS_ITS | Encounter Summary ---
Author Organization [facility] Address [address] [place] [address]. [place], [place] [address] [place] [address] Care Team Providers Care Screw Machine Setter Name Role Phone Samir Gonzalez MD Primary Care Provider + Reason for Visit * RADIOLOGY SERVICES (Routine) - Closed Specialty Diagnoses / Procedures Referred By Contac t Referred To Contact RADIOLOGY Diagnoses MRA HEAD/ SUNDLASS/ ORDERS REQ/ mri: new Procedures MRA HEAD W/[place] [address] [place] [address] Phone: tel: fax: [facility]) RADIOLOGY [address] [place] [phone] Phone: tel: Referral ID Status Reason Start Date Expiration Date Visits Requested Visits Authorized [id number] Closed [facility] CONSULTATION 1 1 Encounter Details Date Type Department Care Team (Late st Contact Info) Description 06/18/2004 12:00 PM POLICE COMMUNICATIONS OPERATOR Radiology [facility]) RADIOLOGY [address] [place] [phone] Social History Tobacco Use Types Packs/Day [...] CONTRAST Refer. Physician: Samir Gonzalez MD Refer. PANTOGRAPH OPERATOR/PA: X-Ray #: [id number] X-Ray Tech: KARLEY MR REPORT - [facility] MRA head without contrast. FINDINGS: Intracranial MRA was performed through the area of the caddo of Way. No significant narrowing of the [...] Note Frankie Bobo - 06/19/2004 12:00 AM POLICE COMMUNICATIONS OPERATOR Refer. Physician: Samir Gonzalez MD Refer. PANTOGRAPH OPERATOR/PA: X-Ray #: [id number] X-Ray Tech: KARLEY MR REPORT - [facility] MRA head without contrast. FINDINGS: Intracranial MRA was performed through the area of the [place] of[place]. No significant narrowing of the visualized portions of theinternal carotids or vertebral basilar artery is identified. The visualized portions of the intercranial circulation are essentiallyunremarkable. Note is made of patent small right posterior communicatingartery. RKK/cme Samir Gonzalez MD MRI Final Re sult documented in this encounter Visit Diagnoses Diagnosis Unspecified transient cerebral ischemia- Primary documented in this encounter Care Teams Screw Machine Setter Relationship Specialty Start Date End Date Samir Gonzalez MD [address] [place] [address] PCP - General 04/05/02 07/17/07 documented as of this encounter
--- OUTSIDE RECORDS SUMMARY | 2024-07-17 04:00 | XMS_ITS | Encounter Summary ---
Author Organization [facility] Address [address] [place] [address]. [place], [place] [address] [place] [address] Care Team Providers Care Intrusion Analyst Name Role Phone Samir Aiken MD Primary Care Provider + Reason for Visit * Reason Comments Other Erosive gastritis/ul cers Needs LFT's Fasting Other Refill Request imitrex Encounter Details Date Type Department Care Team (Late st Contact Info) Description 11/16/2005 10:00 AM CDT Office Visit [facility] INTERNAL MEDICINE [address] [place] [phone] Samir Aiken MD [address] [place] [address] [facility] (Erosive gastritis/ulcers [...] Samir Aiken - 11/19/2005 1:29 PM CDT Marine Engine Driver accepted by SAMIR AIKEN on 11/19/2005 at [...] SODIUM S/P/B 143(H) 133 - 142 mmol/L [facility] POTASSIUM S/P/B 4.1 3.5 - 5.3 mmol/L [facility] CHLORIDE S/P/B 106 99 - 111 mmol/L [facility] CO2 26 22 - 34 mmol/L [facility] BUN 11 7 - 20 mg/dL [facility] CREATININE S/P/B 0.8 0.6 - 1.3 mg/dL [facility] CALCIUM S/P/B 8.9 8.5 - 10.1 mg/dL [facility] GLUCOSE 81 70 - 110 mg/dL [facility] Comment:FASTING TOTAL PROTEIN S/P/B 7.6 6.4 - 8.2 g/dL [facility] ALBUMIN S/P/B 4.0 3.4 - 5.0 g/dL [facility] AST 33 10 - 37 U/L [facility] ALT 195(H) 30 - 65 U/L [facility] ALKALINE PHOSPHATASE S/P/B 93 50 - 136 U/L [facility] BILIRUBIN TOTAL S/P/B 1.0 0 - 1.0 mg/dL [facility] 11/16/2005 10:2 9 AM CDT 11/16/2005 10:30 AM CDT Samir Aiken MD LABORATORY Final Re sult [facility] [address] [place] [address] documented in this encounter Visit Diagnoses Not on filedocumented in this encounter Care Teams Intrusion Analyst Relationship Specialty Start Date End Date Samir Aiken MD [address] [place] [address] PCP - General 04/05/02 07/17/07 documented as of this encounter
--- OUTSIDE RECORDS SUMMARY | 2024-07-17 04:00 | XMS_ITS | Encounter Summary ---
Author Organization [facility] Address [address] [place] [address]. [place], [place] [address] [place] [address] Care Team Providers Care Engraver Hand Hard Metals Name Role Phone Samir Aiken MD Primary [...] (Late st Contact Info) Description 08/11/2005 Telephone [facility] INTERNAL MEDICINE [address] [place] [phone] Samir Aiken MD [facility] [place] [address] Appointment Request (PT MAY HAVE [...] to double book her with Dr Aiken. NG ROOM SUPERVISOR documented in this encounter Plan of Treatment Not on file documented as of this encounter Visit Diagnoses Not on filedocumented in this encounter Care Teams Engraver Hand Hard Metals Relationship Specialty Start Date End Date Samir Aiken MD [address] [place] [address] PCP - General 04/05/02 07/17/07 documented as of this encounter
--- OUTSIDE RECORDS SUMMARY | 2024-07-17 04:00 | XMS_ITS | Encounter Summary ---
Author Organization [facility] Address [address] [place] [address]. [place], [place] [address] [place] [address] Care Team Providers Care Patch Machine Operator Name Role Phone Raquel Gauthier MD Primary Care Provider [phone] Samir Gonzalez MD Primary Care Provider + [...] Visit * Reason Comments Discharge Summary (SCAN) [facility] Encounter Details Date Type Department Care Team (Late st Contact Info) Description 11/13/2005 [facility] BUSINESS OFFICE [address] [place] [phone] Scanned, Documents Discharge Summary (SCAN) ([facility]) Social History Tobacco Use Types Packs/Day [...] 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 [place] [address] PCP - General 10/30/09 10/30/09 Samir Gonzalez MD [address] [place] [address] PCP - General 07/18/07 07/18/07 Samir Gonzalez MD [address] [place] [address] PCP - General 04/05/02 07/17/07 Aurelio Osei MD [address] [place] [address] PCP - General 03/11/14 Bakari Vasquez DO [address] [facility] [address] [place], [place] [address] PCP - General 01/31/13 03/10/14 Bakari Vasquez DO [address] [place] [address] PCP - General 01/25/13 01/30/13 Bakari Vasquez DO [address] [facility] [address] [place] [address] PCP - General 01/21/13 01/24/13 Bakari Vasquez DO [address] [facility] [address] [place] [address] PCP - General 01/09/13 01/20/13 Bakari Vasquez DO [address] [facility] [address] [place] [address] PCP - General 01/03/13 01/08/13 Bakari Vasquez DO [address] [facility] [address] [place] [address] PCP - General 01/01/13 01/02/13 Bakari Vasquez DO [address] [facility] [address] [place] [address] PCP - General 12/25/12 12/31/12 documented as of this encounter
--- OUTSIDE RECORDS SUMMARY | 2024-07-17 04:00 | XMS_ITS | Encounter Summary ---
Author Organization [facility] Address [address] [place] [address]. [place], [place] [address] [place] [address] Care Team Providers Care Sales Floor Team Leader Name Role Phone Raquel Gauthier MD Primary Care Provider [phone] Samir Gonzalez MD Primary Care Provider + [...] (Late st Contact Info) Description 09/18/2004 Scan [facility] Health Information Management [facility] [address] , Sheila Tate MD Social [...] filedocumented in this encounter Care Teams Sales Floor Team Leader Relationship Specialty Start Date End Date Raquel Gauthier MD [address] [employer] ?? [place] [address] PCP - General 10/30/09 10/30/09 Samir Gonzalez MD [address] [place] [address] [id number] PCP - General 07/18/07 07/18/07 Samir Gonzalez MD [address] [place] [address] [id number] PCP - General 04/05/02 07/17/07 Aurelio Osei MD [address] [place] [address] PCP - General 03/11/14 Bakari Vasquez DO [address] [place] [address] PCP - General 01/31/13 03/10/14 Bakari Vasquez DO [address] [place] [address] PCP - General 01/25/13 01/30/13 Bakari Vasquez DO [address] [place] [address] PCP - General 01/21/13 01/24/13 Bakari Vasquez DO [address] [place] [address] PCP - General 01/09/13 01/20/13 Bakari Vasquez DO [address] [facility] [address] [place] [address] PCP - General 01/03/13 01/08/13 Bakari Vasquez DO [address] [facility] [address] [place] [address] PCP - General 01/01/13 01/02/13 Bakari Vasquez DO 501 [facility] [address] [place], [place] [address] PCP - General 12/25/12 12/31/12 documented as of this encounter
--- OUTSIDE RECORDS SUMMARY | 2024-07-17 04:00 | XMS_ITS | Encounter Summary ---
Author Organization [facility] Address [address] [place] [address]. [place], [place] [address] [place] [address] Care Team Providers Care Clinical Rn Manager Name Role Phone Samir Gonzalez MD Primary Care Provider + Reason for Visit * Reason Comments Other 2 days/children + pn eumonia Other Encounter Details Date Type Department Care Team (Late st Contact Info) Description 08/11/2005 9:00 AM STEAM TURBINE OPERATOR Office Visit [facility] INTERNAL MEDICINE [address] [place] [phone] Samir Gonzalez MD [address] [place] [address] chest congestion/cough (2 days/children + pneumonia); [...] Comments Blood Pressure 110/70 08/11/2005 9:00 AM STEAM TURBINE OPERATOR Pulse 108 08/11/2005 9:00 AM STEAM TURBINE OPERATOR Temperature 38 ??C (100.4 ??F) 08/11/2005 9:00 AM STEAM TURBINE OPERATOR Respiratory Rate - - Oxygen Saturation 98% 08/11/2005 9:00 AM STEAM TURBINE OPERATOR Inhaled Oxygen Concentration - - Weight 81.6 kg (180 lb) 08/11/2005 9:00 AM STEAM TURBINE OPERATOR Height 174 cm (5' 8.5 ) 08/11/2005 9:00 AM STEAM TURBINE OPERATOR Body Mass Index 26.97 08/11/2005 9:00 AM STEAM TURBINE OPERATOR documented in this encounter Progress Notes * Samir S Carlos - 08/11/2005 9:44 AM CST SUBJECTIVE: Dry cough ,severe, since 2 days, Onset gradual, getting worse from mild to severe, associated with chest pain , chest congestion , wheezing, fever, with chills, bodyache, head congestion, no sore throat, urine or gi , cardiograph operator, noese ,ear, . 2 daughter down with [...] PNEUMONIA, ORGANISM NOS[486] new PLAN: see orders M TURBINE OPERATOR documented in this encounter Nursing Notes * 08/11/2005 9:00 AM CST >> NIDIA ADLER 08/11/2005 9:02 am No Ibuprofen today. Took Nyquil at 6 am. documented in this encounter Plan of Treatment Not on file documented as of this encounter Procedures Procedure Name Priority Date/Time Associated Diagnosis Comments INFLUENZA A & B STAT 08/11/2005 9:22 AM STEAM TURBINE OPERATOR documented in this encounter Results * INFLUENZA A & B (08/11/2005 9:22 AM STEAM TURBINE OPERATOR) INFLUENZA A PRESUMPTIVE NEGATIVE PNEG [facility] INFLUENZA B PRESUMPTIVE NEGATIVE PNEG [facility] 08/11/2005 9:22 AM STEAM TURBINE OPERATOR 08/11/2005 9:23 AM STEAM TURBINE OPERATOR Samir Gonzalez MD MICROBIOLOGY - GENERAL O RDERABLES Final Result Performing Organization Address City/State/[facility] Co de Phone Number [facility] [address] [place] [phone] documented in this encounter Visit Diagnoses Diagnosis Pneumonia, organism unspecified(486)- Primary Pneumonia, organism unspecified documented in this encounter Care Teams Clinical Rn Manager Relationship Specialty Start Date End Date Samir Gonzalez MD [address] [place], [place] [phone] PCP - General 04/05/02 07/17/07 documented as of this encounter
--- OUTSIDE RECORDS SUMMARY | 2024-07-17 04:00 | XMS_ITS | Encounter Summary ---
Author Organization [facility] Address [address] [place] [address]. [place], [place] [address] [place] [address] Care Team Providers Care Senior Physical Therapist Name Role Phone Samir Gonzalez MD Primary Care Provider + Reason for Visit * Reason Comments Endoscopy (SCAN) Encounter Details Date Type Department Care Team (Late st Contact Info) Description 11/13/2005 Scan [facility] [address] [place] [phone] Scanned, Documents Endoscopy (SCAN) Social History [...] filedocumented in this encounter Care Teams Senior Physical Therapist Relationship Specialty Start Date End Date Samir Gonzalez MD [address] [place] [address] PCP - General 04/05/02 07/17/07 documented as of this encounter
--- OUTSIDE RECORDS SUMMARY | 2024-07-17 04:00 | XMS_ITS | Encounter Summary ---
Author Organization [facility] Address [address] [place] [address]. [place], [place] [address] [place] [address] Care Team Providers Care Beauty Shop Manager Name Role Phone Samir Gonzalez MD Primary Care Provider + Reason for Visit * Reason Comments Physical Neurologic Problem Encounter Details Date Type Department Care Team (Late st [facility] Info) Description 06/10/2004 8:20 AM ASSISTANT DIRECTOR OF PUBLIC WORKS Office Visit [facility] INTERNAL MEDICINE [address] [place] [phone] Samir Gonzalez MD [address] [place] [address] Physical; Neurologic Problem Social History Tobacco [...] Comments Blood Pressure 120/80 06/10/2004 8:22 AM ASSISTANT DIRECTOR OF PUBLIC WORKS Pulse 70 06/10/2004 8:22 AM ASSISTANT DIRECTOR OF PUBLIC WORKS Temperature - - Respiratory Rate - - Oxygen Saturation - - Inhaled Oxygen Concentration - - Weight 108 kg (238 lb) 06/10/2004 8:22 AM ASSISTANT DIRECTOR OF PUBLIC WORKS Height 175.3 cm (5' 9 ) 06/10/2004 8:22 AM ASSISTANT DIRECTOR OF PUBLIC WORKS Body Mass Index 35.15 06/10/2004 8:22 AM ASSISTANT DIRECTOR OF PUBLIC WORKS documented in this encounter Progress Notes * [...] URINALYSIS, AUTO, COMPLETE Routine 06/10/2004 9:20 AM ASSISTANT DIRECTOR OF PUBLIC WORKS COMPREHENSIVE METABOLIC PANEL Routine 06/10/2004 9:20 AM ASSISTANT DIRECTOR OF PUBLIC WORKS LIPID PANEL Routine 06/10/2004 9:20 AM ASSISTANT DIRECTOR OF PUBLIC WORKS CBC W/DIFF AUTOMATED Routine 06/10/2004 9:20 AM ASSISTANT DIRECTOR OF PUBLIC WORKS CYTOPATH CERV/VAG INTERPRET (PAP SMEAR) Routine 06/10/2004 8:37 AM ASSISTANT DIRECTOR OF PUBLIC WORKS documented in this encounter Results * (ABNORMAL) URINALYSIS, AUTO, W/SCOPE (06/10/2004 9:20 AM ASSISTANT DIRECTOR OF PUBLIC WORKS) COLOR (U) YELLOW [facility] TRANSPARENCY HAZY [facility] U PH 6.5 5.0 - 9.0 [facility] SPECIFIC GRAVITY (U) 1.010 1.003 - 1.040 [facility] URINE GLUCOSE NEGATIVE NEG [facility] KETONE (U) NEGATIVE NEG [facility] PROTEIN NEGATIVE NEG [facility] BILIRUBIN (U) NEGATIVE NEG [facility] UROBILINOGEN 0.2 0.2 - 1.0 eu/dL [facility] BLOOD (U) TRACE(A) NEG [facility] LEUKOCYTES (U) 1+(A) NEG [facility] NITRITES NEGATIVE NEG [facility] WBC/HPF 0-3 Z3 /hpf [facility] RBC/HPF NONE SEEN NSEE /hpf [facility] EPI/HPF 10-15 /hpf [facility] BACTERIA (U) 2+(A) NSEE [facility] 06/10/2004 9:20 AM ASSISTANT DIRECTOR OF PUBLIC WORKS 06/10/2004 9:21 AM ASSISTANT DIRECTOR OF PUBLIC WORKS us Samir Gonzalez MD URINE ORDERABLES Final R esult Performing Organization Address [facility] Co de Phone Number [facility] [address] [place], [place] [phone] * (ABNORMAL) LIPID PANEL (06/10/2004 9:20 AM ASSISTANT DIRECTOR OF PUBLIC WORKS) CHOLESTEROL 154 0 - 199 mg/dL [facility] TRIGLYCERIDES 156(H) 30 - 149 mg/dL [facility] HDL 37(L) 40 - 60 mg/dL [facility] LDL (CALCULATED) 86 0 - 99 mg/dL [facility] RISK 4.2 3.0 - 5.0 [facility] Comment:FASTING 06/10/2004 9:20 AM ASSISTANT DIRECTOR OF PUBLIC WORKS 06/10/2004 9:21 AM ASSISTANT DIRECTOR OF PUBLIC WORKS us Samir Gonzalez MD LABORATORY Final Re sult Performing Organization Address [facility] Co de Phone Number [facility] [address] [place] [phone] * COMPREHENSIVE METABOLIC PANEL (06/10/2004 9:20 AM ASSISTANT DIRECTOR OF PUBLIC WORKS) SODIUM S/P/B 137 137 - 150 mmol/L [facility] POTASSIUM S/P/B 4.3 3.5 - 5.3 mmol/L [facility] CHLORIDE S/P/B 102 99 - 111 mmol/L [facility] CO2 27 22 - 34 mmol/L [facility] BUN 10 7 - 20 mg/dL [facility] CREATININE S/P/B 0.8 0.6 - 1.3 mg/dL [facility] CALCIUM S/P/B 9.1 8.5 - 10.1 mg/dL [facility] GLUCOSE 98 70 - 110 mg/dL [facility] TOTAL PROTEIN S/P/B 7.9 6.4 - 8.2 g/dL [facility] ALBUMIN S/P/B 3.6 3.4 - 5.0 g/dL [facility] AST 13 10 - 37 U/L [facility] ALT 36 30 - 65 U/L [facility] ALKALINE PHOSPHATASE S/P/B 105 50 - 136 U/L [facility] BILIRUBIN TOTAL S/P/B 0.8 0 - 1.0 mg/dL [facility] 06/10/2004 9:20 AM ASSISTANT DIRECTOR OF PUBLIC WORKS 06/10/2004 9:21 AM ASSISTANT DIRECTOR OF PUBLIC WORKS Samir Gonzalez MD LABORATORY Final Re sult Performing Organization Address City/State/[facility] Co de Phone Number [facility] [place] [address] [phone] * (ABNORMAL) CBC W/DIFF AUTOMATED (06/10/2004 9:20 AM ASSISTANT DIRECTOR OF PUBLIC WORKS) WBC 8.5 3.0 - 10.5 k/uL [facility] ABS. LYMPHOCYTES 2.4 0.6 - 4.6 k/uL [facility] LYMPHOCYTES % 27.9 % [facility] ABS. MID CELLS 0.4 0 - 0.9 k/uL [facility] MID CELLS % 4.7 % [facility] ABS. NEUTROPHILS 5.7 1.5 - 7.9 k/uL [facility] NEUTROPHILS % 67.4 % [facility] RBC 4.99 3.70 - 5.20 m/uL [facility] HGB 14.8 11.8 - 15.8 g/dL [facility] HCT 42.5 35.0 - 46.0 % [facility] MCV 85.1 80.0 - 98.0 fL [facility] MCH 29.7 pg [facility] MCHC 34.8 g/dL [facility] RDW 13.4 10.5 - 14.7 % [facility] PLT 237 140 - 440 K/uL [facility] MPV 11.80(H) 6.1 - 10.[address] [facility] 06/10/2004 9:20 AM ASSISTANT DIRECTOR OF PUBLIC WORKS 06/10/2004 9:21 AM ASSISTANT DIRECTOR OF PUBLIC WORKS Samir Leno Gonzalez MD LABORATORY Final Re sult [facility] [address] [place] [phone] * CYTOPATH CERV/VAG INTERPRET (06/10/2004 8:37 AM ASSISTANT DIRECTOR OF PUBLIC WORKS) COPATH REPORT ?[facility] ?[address] [place] [phone] ? GYNECOLOGIC CYTOLOGY REPORT ? Name: VANGIE YUEN ? Specimen # : [id number] Age: 10 1970 (Age: 34) ?Location: [facility] Sex: F ? Procedure Date: 06/10/2004 Hospital #: [id number] ?Date Processed: 06/15/[address] [facility] Physician(s): Samir Gonzalez M.D. ? Patient History: LMP: 05/03/04 Mentrual/Preg: Contraceptive: Other: Cancer History: Pertinent History: Treatment History: SPECIMEN: ??Clinic Screening Thin Prep Pap ADEQUACY: ??Satisfactory for Evaluation. DIAGNOSIS: ??NEGATIVE FOR INTRAEPITHELIAL LESIONS OR MALIGNANCY. Demetrius Álvarez (ASCP) Electronically Signed Out On 06/16/2004 ? This document has been printed from the electronic file of the [facility] Information System. This is not an official medical record copy. To obtain an official copy, please refer to the patient's permanent medical record at [facility]. [facility] 06/10/2004 8:37 AM ASSISTANT DIRECTOR OF PUBLIC WORKS 06/15/2004 8:37 AM ASSISTANT DIRECTOR OF PUBLIC WORKS us Samir Gonzalez MD PATHOLOGY/CYTOLOGY ORDER JASWANT Final Result [facility] documented in this encounter Visit Diagnoses Not on filedocumented in this encounter Care Teams Beauty Shop Manager Relationship Specialty Start Date End Date Samir Gonzalez MD [address] [place] [address] PCP - General 04/05/02 07/17/07 documented as of this encounter
--- OUTSIDE RECORDS SUMMARY | 2024-07-17 04:00 | XMS_ITS | Encounter Summary ---
Author Organization [facility] Address [address] [place] [address]. [place], [place] [address] [place] [address] Care Team Providers Care Radiology Clerk Name Role Phone Raquel Gauthier MD Primary Care Provider [phone] Samir Gonzalez MD Primary Care Provider + [...] Team (Late st Contact Info) Description 05/02/2002 [facility] Health Information Management [address] [place] [address] Sheila Inman MD Social History Tobacco [...] on filedocumented in this encounter Care Teams Radiology Clerk Relationship Specialty Start Date End Date Raquel Gauthier MD [address] [facility] ?? [place] [address] PCP - General 10/30/09 10/30/09 Samir Gonzalez MD [address] [place] [address] PCP - General 07/18/07 07/18/07 Samir Gonzalez MD [address] [place] [address] [phone] PCP - General 04/05/02 07/17/07 [place] [address] [place] [address] PCP - General 03/11/14 Bakari Vaqsuez DO [address] [place] [address] PCP - General 01/31/13 03/10/14 Bakari Vasquez DO [address] [place] [address] PCP - General 01/25/13 01/30/13 Bakari Vasquez DO [address] [place] [address] PCP - General 01/21/13 01/24/13 Bakari Vasquez DO [address] [place] [address] PCP - General 01/09/13 01/20/13 Bakari Vasquez DO [address] [facility] [address] [place] [address] PCP - General 01/03/13 01/08/13 Bakari Vasquez DO [address] [facility] [address] [place] [address] PCP - General 01/01/13 01/02/13 Bakari Vasquez DO [address] [facility] [address] [place] [address] PCP - General 12/25/12 12/31/12 documented as of this encounter
--- OUTSIDE RECORDS SUMMARY | 2024-07-17 04:00 | XMS_ITS | Encounter Summary ---
Author Organization [facility] Address [address] [place] [address]. [place], [place] [address] [place] [address] Care Team Providers Care Dictating Machine Typist Name Role Phone Samir Gonzalez MD Primary Care Provider + Reason for Visit * Reason Comments Follow Up Call [facility] ER 09/19,09/23 Encounter Details Date Type Department Care Team (Late st Contact Info) Description 09/25/2004 11:00 AM PAPER STRIPPER Office Visit [facility] INTERNAL MEDICINE [address] [place] [phone] Samir Gonzalez MD [address] [place] [address] Follow Up Call ([facility] ER 09/19,09/23) Social History Tobacco Use Types [...] Comments Blood Pressure 128/82 09/25/2004 11:00 AM PAPER STRIPPER Pulse 84 09/25/2004 11:00 AM PAPER STRIPPER Temperature 36.3 ??C (97.4 ??F) 09/25/2004 11:[address] Respiratory Rate - - Oxygen Saturation - - Inhaled Oxygen Concentration - - Weight 109.5 kg (241 lb 8 oz) 09/25/2004 11:00 A M PAPER STRIPPER Height 174 cm (5' 8.5 ) 09/25/2004 11:00 AM PAPER STRIPPER Body Mass Index 36.19 09/25/2004 11:00 AM PAPER STRIPPER documented in this encounter Progress Notes * [...] on filedocumented in this encounter Care Teams Dictating Machine Typist Relationship Specialty Start Date End Date Samir Gonzalez MD [address] [place] [address] PCP - General 04/05/02 07/17/07 documented as of this encounter
--- OUTSIDE RECORDS SUMMARY | 2024-07-17 04:00 | XMS_ITS | Encounter Summary ---
Author Organization [facility] Address [address] [place] [address]. [place], [place] [address] [place] [address] Care Team Providers Care Operator Vacuum Name Role Phone Raquel Gauthier MD Primary Care Provider [phone] Samir Gonzalez MD Primary Care Provider + [...] Visit * Reason Comments Hospital H&P (SCAN) [facility] ER Note (SCAN) Encounter Details Date Type Department Care Team (Late st Contact Info) Description [facility] [address] [place] [phone] Scanned, Documents Hospital H&P (SCAN) ([facility]); ER Note (SCAN) Social History Tobacco Use [...] 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 [place], [place] [phone] PCP - General 10/30/09 10/30/09 Samir Gonzalez MD [address] [place] [address] [phone] PCP - General 07/18/07 07/18/07 Samir Gonzalez MD [address] [place] [address] [phone] PCP - General 04/05/02 07/17/07 Aurelio Osei MD [address] [place] [address] PCP - General 03/11/14 Bakari Vasquez DO [address] [place] [address] PCP - General 01/31/13 03/10/14 Bakari Vasquez DO [address] [place] [address] PCP - General 01/25/13 01/30/13 Bakari Vasquez DO [address] [place] [address] PCP - General 01/21/13 01/24/13 Bakari Vasquez DO [address] [facility] [address] [place] [address] PCP - General 01/09/13 01/20/13 Bakari Vasquez DO 501 [facility] [address] [place] [address] PCP - General 01/03/13 01/08/13 Bakari Vasquez DO 501 [facility] [address] [place] [address] PCP - General 01/01/13 01/02/13 Bakari Vasquez DO 501 [facility] [address] [place] [address] PCP - General 12/25/12 12/31/12 documented as of this encounter
--- OUTSIDE RECORDS SUMMARY | 2024-07-17 04:00 | XMS_ITS | Encounter Summary ---
Author Organization [facility] Address [address] [place] [address]. [place], [place] [address] [place] [address] Care Team Providers Care Feed Inspection Supervisor Name Role Phone Samir Gonzalez MD Primary Care Provider + Reason for Visit * Reason Comments Follow Up pneumonia/CXR done p rior Sinus Problem Encounter Details Date Type Department Care Team (Late st Contact Info) Description 09/15/2005 1:45 PM DIRECTOR OF EVENT MANAGEMENT Office Visit [facility] INTERNAL MEDICINE [address] [place] [phone] Samir Gonzalez MD [address] [place] [address] Follow Up (pneumonia/CXR done prior); Sinus [...] Comments Blood Pressure 128/64 09/15/2005 1:45 PM DIRECTOR OF EVENT MANAGEMENT Pulse 76 09/15/2005 1:45 PM DIRECTOR OF EVENT MANAGEMENT Temperature 36 ??C (96.8 ??F) 09/15/2005 1:45 PM DIRECTOR OF EVENT MANAGEMENT Respiratory Rate - - Oxygen Saturation - - Inhaled Oxygen Concentration - - Weight 82.1 kg (181 lb) 09/15/2005 1:45 PM DIRECTOR OF EVENT MANAGEMENT Height 174 cm (5' 8.5 ) 09/15/2005 1:45 PM DIRECTOR OF EVENT MANAGEMENT Body Mass Index 27.12 09/15/2005 1:45 PM DIRECTOR OF EVENT MANAGEMENT documented in this encounter Progress Notes * [...] recheck for persistence or worsening of symptoms. CTOR OF EVENT MANAGEMENT documented in this encounter Plan of Treatment Not on file documented as of this encounter Visit Diagnoses Diagnosis Acute sinusitis, unspecified- Primary documented in this encounter Care Teams Feed Inspection Supervisor Relationship Specialty Start Date End Date Samir Gonzalez MD [address] [place] [address] PCP - General 04/05/02 07/17/07 documented as of this encounter
--- OUTSIDE RECORDS SUMMARY | 2024-07-17 04:00 | XMS_ITS | Encounter Summary ---
Author Organization [facility] Address [address] [place] [address]. [place], [place] [address] [place] [address] Care Team Providers Care Software Application Tester Name Role Phone Samir Gonzalez MD Primary Care Provider + Encounter Details Date Type Department Care Team (Late st Contact Info) Description 08/11/2005 Radiology [facility]) RADIOLOGY [address] [place] [phone] Samir Gonzalez MD [address] [place] [address] Social History Tobacco Use Types Packs/Day [...] unspecified documented in this encounter Care Teams Software Application Tester Relationship Specialty Start Date End Date Samir Gonzalez MD [address] [place] [address] PCP - General 04/05/02 07/17/07 documented as of this encounter
--- OUTSIDE RECORDS SUMMARY | 2024-07-17 04:00 | XMS_ITS | Encounter Summary ---
Author Organization [facility] Address [address] [place] [address]. [place], [place] [address] [place] [address] Care Team Providers Care Blackener Name Role Phone Samir Gonzalez MD Primary Care Provider + Reason for Visit * Reason Comments Other Encounter Details Date Type Department Care Team (Late st Contact Info) Description 06/08/2004 4:00 PM BLOW TORCH OPERATOR Office Visit [facility] INTERNAL MEDICINE [address] [place] [phone] Samir Gonzalez MD [address] [place] [address] swellen face Social History Tobacco Use [...] Comments Blood Pressure 122/86 06/08/2004 4:10 PM BLOW TORCH OPERATOR Pulse 80 06/08/2004 4:10 PM BLOW TORCH OPERATOR Temperature 36.7 ??C (98 ??F) 06/08/2004 4:10 PM BLOW TORCH OPERATOR Respiratory Rate 16 06/08/2004 4:10 PM BLOW TORCH OPERATOR Oxygen Saturation - - Inhaled Oxygen Concentration - - Weight 108.4 kg (239 lb) 06/08/2004 4:10 PM BLOW TORCH OPERATOR Height - - Body Mass Index - [...] on filedocumented in this encounter Care Teams Blackener Relationship Specialty Start Date End Date Samir Gonzalez MD [address] [place], [place] [phone] PCP - General 04/05/02 07/17/07 documented as of this encounter
--- OUTSIDE RECORDS SUMMARY | 2024-07-17 04:00 | XMS_ITS | Encounter Summary ---
Author Organization [facility] Address [address] [place] [address]. [place], [place] [address] [place] [address] Care Team Providers Care Gill Tender Name Role Phone Raquel Gauthier MD Primary Care Provider [phone] Samir Gonzalez MD Primary Care Provider + [...] (Late st Contact Info) Description 06/07/2004 Scan [facility] Health Information Management [facility] [place], [place] [phone] , Sheila Tate MD Social History Tobacco [...] on filedocumented in this encounter Care Teams Gill Tender Relationship Specialty Start Date End Date Raquel Gauthier MD [address] [facility] [place] [address] PCP - General 10/30/09 10/30/09 Samir Gonzalez MD [address] [place] [address] PCP - General 07/18/07 07/18/07 Samir Gonzalez MD [address] [place] [address] [phone] PCP - General 04/05/02 07/17/07 [place] [address] [place] [address] PCP - General 03/11/14 Bakari Vasquez DO [address] [place] [address] PCP - General 01/31/13 03/10/14 Bakari Vasquez DO [address] [place] [address] PCP - General 01/25/13 01/30/13 Bakari Vasquez DO [address] [place] [address] PCP - General 01/21/13 01/24/13 Bakari Vasquez DO [address] [place] [address] PCP - General 01/09/13 01/20/13 Bakari Vasquez DO [address] [facility] [address] [place] [address] PCP - General 01/03/13 01/08/13 Bakari Vasquez DO [address] [facility] [address] [place] [address] PCP - General 01/01/13 01/02/13 Bakari Vasquez DO 501 [facility] [address] [place] [address] PCP - General 12/25/12 12/31/12 documented as of this encounter
--- OUTSIDE RECORDS SUMMARY | 2024-07-17 04:00 | XMS_ITS | Encounter Summary ---
Author Organization [facility] Address [address] [place] [address]. [place], [place] [address] [place] [address] Care Team Providers Care Wholesale Loan Processor Name Role Phone Samir Gonzalez MD Primary Care Provider + Encounter Details Date Type Department Care Team (Late st Contact Info) Description 09/15/2005 Radiology [facility]) RADIOLOGY [address] [place] [phone] Samir Gonzalez MD [address] [place] [address] Social History Tobacco Use Types Packs/Day [...] unspecified documented in this encounter Care Teams Wholesale Loan Processor Relationship Specialty Start Date End Date Samir Gonzalez MD [address] [place] [address] PCP - General 04/05/02 07/17/07 documented as of this encounter
--- OUTSIDE RECORDS SUMMARY | 2024-07-17 04:00 | XMS_ITS | Encounter Summary ---
Author Organization [facility] Address [address] [place] [address]. [place], [place] [address] [place] [address] Care Team Providers Care Claim Trainee Name Role Phone Raquel Gauthier MD Primary Care Provider [phone] Samir Gonzalez MD Primary Care Provider + Samir Gonzalez MD Primary Care Provider + None, Provider Primary Care Provider Unavaila ble Manarang, Don DO Primary Care Provider [phone] Manarang, Don DO Primary Care Provider [phone] Manarang, Don DO Primary Care Provider [phone] Manarang, Don DO Primary Care Provider [phone] Manarang, Don DO Primary Care Provider [phone] Manarang, Don DO Primary Care Provider [phone] Manarang, Don DO Primary Care Provider [phone] Encounter Details Date Type Department Care Team (Late st Contact Info) Description 11/13/2005 [facility] Health Information Management [address] [place] [address] Sheila Inman MD Social History Tobacco [...] on filedocumented in this encounter Care Teams Claim Trainee Relationship Specialty Start Date End Date Raquel Gauthier MD [address] ?? [place], [place] [phone] PCP - General 10/30/09 10/30/09 Samir Gonzalez MD [address] [place], [place] [phone] PCP - General 07/18/07 07/18/07 Samir Gonzalez MD [address] [place], [place] [phone] PCP - General 04/05/02 07/17/07 Aurelio Osei MD [address] [place] [address] PCP - General 03/11/14 Bakari Vasquez DO [address] [place] [address] PCP - General 01/31/13 03/10/14 Bakari Vasquez DO [address] [place] [address] PCP - General 01/25/13 01/30/13 Bakari Vasquez DO [address] [place] [address] PCP - General 01/21/13 01/24/13 Bakari Vasquez DO [address] [facility] [facility] [address] [place] [address] PCP - General 01/09/13 01/20/13 Bakari Vasquez DO [address] [facility] [address] [place] [address] PCP - General 01/03/13 01/08/13 Bakari Vasquez DO [address] [place] [address] 20 [place] [address] PCP - General 01/01/13 01/02/13 Bakari Vasquez DO [address] [place] [address] 20 [place] [address] PCP - General 12/25/12 12/31/12 documented as of this encounter
--- OUTSIDE RECORDS SUMMARY | 2024-07-17 04:00 | XMS_ITS | Encounter Summary ---
Author Organization [facility] Address [address] [place] [address]. [place], [place] [address] [place] [address] Care Team Providers Care Compound Specialist Name Role Phone Samir Gonzalez MD Primary Care Provider + Reason for Visit * Reason Comments Report (SCAN) GASTRO CT (SCAN) ABDOMEN & PELVIS Encounter Details Date Type Department Care Team (Late st Contact Info) Description 11/12/2005 Scan [facility] [address] [place] [phone] Scanned, Documents Report (SCAN) (GASTRO); CT [...] on filedocumented in this encounter Care Teams Compound Specialist Relationship Specialty Start Date End Date Samir Gonzalez MD [address] [place] [address] PCP - General 04/05/02 07/17/07 documented as of this encounter
--- OUTSIDE RECORDS SUMMARY | 2024-07-17 04:00 | XMS_ITS | Encounter Summary ---
Author Organization [facility] Address [address] [place] [address]. [place], [place] [address] [place] [address] Care Team Providers Care Log Driver Name Role Phone Samir Gonzalez MD Primary Care Provider + Reason for Visit * Reason Onset Date Comments Sinus Problem 04/05/2005 Encounter Details Date Type Department Care Team (Late st Contact Info) Description 04/06/2005 Nurse Triage [facility] [address] [place] [phone] Aliyah Michaels RN Sinus Problem [...] on filedocumented in this encounter Care Teams Log Driver Relationship Specialty Start Date End Date Samir Gonzalez MD [address] [place] [address] PCP - General 04/05/02 07/17/07 documented as of this encounter
--- OUTSIDE RECORDS SUMMARY | 2024-07-17 04:00 | XMS_ITS | Encounter Summary ---
Author Organization [facility] Address [address] [place] [address]. [place], [place] [address] [place] [address] Care Team Providers Care Thread Dresser Name Role Phone Samir Gonzalez MD Primary Care Provider + Encounter Details Date Type Department Care Team (Late st Contact Info) Description 07/22/2004 9:00 AM U.S. COMMISSIONER Radiology [facility]) RADIOLOGY [address] [place] [phone] Social History Tobacco Use Types Packs/Day [...] SCREENING Refer. Physician: Samir Gonzalez MD Refer. RUBBER AND PLASTICS WORKER/PA: X-Ray #: [id number] X-Ray Tech: MAMMOGRAPHY REPORT -- [facility] X-RAY VIEW(S) ORDERED: Mason Mammo Dig Screen CAD w or w/o Dig Screen REQUISITION HISTORY: Compare to [facility] 05/12/2000. INTERPRETATION: Digital bilateral mammogram with CAD. INDICATION: Screening. Compared to May 12, 2000. FINDINGS: There is no significant change in appearance. There are no current findings suggestive ofnew or enlarging breast malignancy. BIRADS CATEGORY: 1 - Negative. MAGALYG/ramyb U.S. COMMISSIONER documented in this encounter Plan of Treatment Not on file documented as of this encounter Procedures Procedure Name Priority Date/Time Associated Diagnosis Comments MASON MAMM DIG SCREENING Routine 07/23/2004 Screening Mamm-Mailg Neopl-Other Screening Mamm-Malig Neopl-Hi Risk documented in this encounter Results * MASON MAMM DIG SCREENING (MAMDSCRB) (07/23/2004) Anatomical Region Laterality Modality Mammography Narrative Procedure Note Adrian English - 07/23/2004 12:00 AM U.S. COMMISSIONER Refer. Physician: Samir Gonzalez MD Refer. RUBBER AND PLASTICS WORKER/PA: X-Ray #: [id number] X-Ray Tech: MAMMOGRAPHY REPORT -- [facility] X-RAY VIEW(S) ORDERED: Mason Mammo Dig Screen CAD w or w/o Dig Screen REQUISITION HISTORY: Compare to [facility] 05/12/2000. INTERPRETATION: Digital bilateral mammogram with CAD. [...] patient documented in this encounter Care Teams Thread Dresser Relationship Specialty Start Date End Date Samir Gonzalez MD [address] [place] [address] PCP - General 04/05/02 07/17/07 documented as of this encounter
--- OUTSIDE RECORDS SUMMARY | 2024-07-17 04:00 | XMS_ITS | Encounter Summary ---
Author Organization [facility] Address [address] [place] [address]. [place], [place] [address] [place] [address] Care Team Providers Care Waterway Traffic Checker Name Role Phone Raquel Gauthier MD Primary Care Provider [phone] Samir Gonzalez MD Primary Care Provider + [...] (Late st Contact Info) Description 09/10/2000 Scan [facility] Health Information Management [facility] [place], [place] [phone] , Sheila [place] MD Social History Tobacco [...] on filedocumented in this encounter Care Teams Waterway Traffic Checker Relationship Specialty Start Date End Date Raquel Gauthier MD [address] [facility] ?? [place] [address] PCP - General 10/30/09 10/30/09 Samir Gonzalez MD [address] [place] [address] PCP - General 07/18/07 07/18/07 Samir Gonzalez MD [address] [place] [address] [id number] PCP - General 04/05/02 07/17/07 [place] [address] [place] [address] PCP - General 03/11/14 Bakari Vasquez DO [address] [place] [address] PCP - General 01/31/13 03/10/14 Bakari Vasquez DO [address] [place] [address] PCP - General 01/25/13 01/30/13 Bakari Vasquez DO [address] [place] [address] PCP - General 01/21/13 01/24/13 Bakari Vasquez DO [address] [place] [address] PCP - General 01/09/13 01/20/13 Bakari Vasquez DO [address] [facility] [address] [place] [address] PCP - General 01/03/13 01/08/13 Bakari Vasquez DO [address] [facility] [address] [place] [address] PCP - General 01/01/13 01/02/13 Bakari Vasquez DO 501 [facility] [address] [place] [address] PCP - General 12/25/12 12/31/12 documented as of this encounter
--- OUTSIDE RECORDS SUMMARY | 2024-07-17 04:00 | XMS_ITS | Encounter Summary ---
Author Organization [facility] Address [address] [place] [address]. [place] [address] [place] [address] Care Team Providers Care Ceo Name Role Phone Samir Gonzalez MD Primary Care Provider + Encounter Details Date Type Department Care Team (Late st Contact Info) Description 06/18/2005 Orders Only [facility] [address] [address] [place] [address] Slick Blake MD Social History Tobacco Use Types [...] EXAM BY PATHOLOGIST Routine 06/18/2005 11:24 AM SIDE PIECE COVERER documented in this encounter Results * TISSUE EXAM BY PATHOLOGIST (06/18/2005 11:24 AM SIDE PIECE COVERER) COPATH REPORT ?[facility] ?PATHOLOGY DEPARTMENT ?[address] [facility] ?[place], [place] ??[address] ? Surgical Pathology Report ? Patient Name: VANGIE YUEN ? Med. Rec. #: [id number] ? Billing #: [id number] ?Surgery: 06/18/2005 : 1970 ?Location: 8E ? Received: 06/18/2005 Gender: F ?Clinic #: ?Reported: 06/21/2005 Physician(s): Slick Blake Clinical Summary: None given. Specimen(s) Received Gallbladder Final Diagnosis Gallbladder, resection: ?Chronic cholecystitis with cholelithiasis and cholesterolosis. Code 1 ?? PAS 6 lp1/06/21/2005 ? Electronically Signed Out ? C. F. ??Jr. Rosas M.D., FCAP ? Gross Gallbladder: ??The specimen is received fresh labeled [id number] and consists of a 9.6 x 4.8 [...] proximal cystic duct is patent and non-dilated. Salesperson Florist Supplies sections are submitted in a single cassette. ? C. F. ??Jr. Rosas M.D., FCAP ? Microscopic Description Microscopic examination was performed. ??See diagnosis. This document has been printed from the electronic file of the [facility] Information System. ??This is not an official medical record copy. ??To obtain an official copy, please refer to the patient's permanent medical record at [facility]. End of Report [id number] [facility] 06/18/2005 11:2 4 AM SIDE PIECE COVERER 06/18/2005 11:24 AM SIDE PIECE COVERER us Slick Blake MD PATHOLOGY/CYTOLOGY ORDERABL ES Final Result [facility] documented in this encounter Visit Diagnoses Not on filedocumented in this encounter Care Teams Ceo Relationship Specialty Start Date End Date Samir Gonzalez MD [address] [place] [address] PCP - General 04/05/02 07/17/07 documented as of this encounter
--- OUTSIDE RECORDS SUMMARY | 2024-07-17 04:00 | XMS_ITS | Encounter Summary ---
Author Organization [facility] Address [address] [place] [address]. [place], [place] [address] [place] [address] Care Team Providers Care Blower Blast Furnace Name Role Phone Raquel Gauthier MD Primary Care Provider [phone] Samir Gonzalez MD Primary Care Provider + [...] Team (Late st Contact Info) Description 06/18/2005 [facility] Health Information Management [address] [place] [address] , Sheila [place] MD Social History [...] on filedocumented in this encounter Care Teams Blower Blast Furnace Relationship Specialty Start Date End Date Raquel Gauthier MD [address] ?? [place] [address] PCP - General 10/30/09 10/30/09 Samir Gonzalez MD [address] [place] [address] [phone] PCP - General 07/18/07 07/18/07 Samir Gonzalez MD [address] [place] [address] [phone] PCP - General 04/05/02 07/17/07 Aurelio Osei MD [address] [place] [address] PCP - General 03/11/14 Bakari Vasquez DO [address] [place] [address] PCP - General 01/31/13 03/10/14 Bakari Vasquez DO [address] [place] [address] PCP - General 01/25/13 01/30/13 Bakari Vasquez DO [address] [place] [address] PCP - General 01/21/13 01/24/13 Bakari Vasquez DO [address] [place] [address] PCP - General 01/09/13 01/20/13 Bakari Vasquez DO [address] [facility] [address] [place] [address] PCP - General 01/03/13 01/08/13 Bakari Vasquez DO 501 [facility] [address] [place] [address] PCP - General 01/01/13 01/02/13 Bakari Vasquez DO 501 [facility] [address] [place] [address] PCP - General 12/25/12 12/31/12 documented as of this encounter
== END 2024-07-10 06:35 | disposition home or self-care (01) ==
LOC: ANHED 06:15
PROVIDERS: Emergency Provider Emergency Medicine; PCP Family Medicine
DX: N39.0 Urinary tract infection, site not specified (principal); E11.22 Type 2 diabetes mellitus with diabetic chronic kidney disease; N18.9 Chronic kidney disease, unspecified; M19.90 Unspecified osteoarthritis, unspecified site; F41.9 Anxiety disorder, unspecified; F43.10 Post-traumatic stress disorder, unspecified; Q61.3 Polycystic kidney, unspecified; Z79.84 Long term (current) use of oral hypoglycemic drugs; Z79.899 Other long term (current) drug therapy
CPT/HCPCS: 81001; 81025; 87077; 87086; 87186; 96372; 99283; A9270; J1885

== ENCOUNTER 2024-07-31 07:24 | Outpatient (CLI) | payer OTHER, SELFPAY ==
--- NOTE | ~2024-07-31 | CT_ITS ---
EXAMINATION: CT abdomen pelvis w con DATE: 07/31/2024 07:48 INDICATION: Specified disease of liver. TECHNIQUE: Computed tomography (CT) of the abdomen and pelvis was performed with 100 mL Omnipaque-350 intravenous contrast. Automated exposure control and iterative reconstruction technique were employe d. The dose-length product was 1107.66 mGy-cm. COMPARISON: None FINDINGS: Mild discoid atelectasis right lower lobe. Heart size is normal. No pericardial or pleural effusion. There are multiple cysts scattered throughout the liver the largest measuring 15.2 cm. Cholecystectom y clips at the gallbladder fossa. There are also multiple bilateral renal cysts measuring up to 5.0 c m. There are couple nonobstructing stones measuring 2 mm in the interpolar regions of both kidneys. S pleen, pancreas and bilateral adrenal glands are normal. Bowels including the appendix are normal. Bl adder, anteverted uterus and bilateral adnexa are normal. No free intraperitoneal gas or fluid. No pa thologically enlarged abdominal or pelvic lymphadenopathy. Moderate lumbar spondylosis. IMPRESSION: 1. Multiple cysts in the liver and both kidneys consistent with autosomal dominant polycystic kidney disease. 2. Bilateral nonobstructing nephrolithiasis. Reviewed, dictated and finalized at location B. PM IMPRESSION: 1. Multiple cysts in the liver and both kidneys consistent with autosomal domin ant polycystic kidney disease. 2. Bilateral nonobstructing nephrolithiasis.
[2024-07-31 07:43] LABS: Estimated Glomerular Filt Rate 47
== END 2024-07-31 07:25 | disposition home or self-care (01) ==
PROVIDERS: PCP Family Medicine; Visit Provider Physician Assistant
DX: K76.89 Other specified diseases of liver (principal); Q61.3 Polycystic kidney, unspecified; N20.0 Calculus of kidney
CPT/HCPCS: 74177; Q9967

== ENCOUNTER 2024-08-28 12:23 | Outpatient (CLI) | payer OTHER, SELFPAY ==
--- NOTE | ~2024-08-28 | XR_ITS ---
CHEST RADIOGRAPH, PA AND LATERAL CLINICAL HISTORY: R05.9 - Cough x 1 day . COMPARISON: 06/20/2019 TECHNIQUE: PA and lateral views of the chest. FINDINGS The cardiomediastinal silhouette is unremarkable. Elevation of the right hemidiaphragm with adjacent compressive atelectasis. The remainder of the lungs are clear. IMPRESSION: No focal infiltrate or effusion. Reviewed, dictated and finalized at location A. ING HOUSE KEEPER
--- OUTSIDE RECORDS SUMMARY | 2024-08-28 13:20 | XMS_ITS | Referral Summary ---
Author Organization [facility] Address [address] [place] [address] Care Team Providers Care Ornamenter Name Role Phone Marleni Jung Primary Care Provider [phone] Allergies Active Allergy Reactions Criticality Noted Date [...] In the past 12 months has e [employer] (V3[employer]), gas, oil, or water [employer] threatened to shut off services in your home? No 01/09/2024 PHQ-2 Answer Date Recorded Initial depression screening score: 0 01/09/2024 Social Connections Answer Date Recorded How often do you see or talk to people that you care about and feel close to? (For example: talking to friends on the phone, visiting friends or family, going to sikh or club meetings) 5 or more times [...] out before you got money to buy more. Never true 01/09/2024 Within the past 12 months, t he food you bought just didn't last and you didn't have money to get more. Never true 01/09/2024 Inadequate Housing Answer Date Recorded What is your living situatio n today? I have a steady place to live 01/09/2024 Do you have problems with an y of the following? None of the above 01/09/2024 Interpersonal Safety Answer Date Record ed How often does anyone, olesya quiroz family and friends, physically hurt you? Never 01/09/2024 How often does anyone, olesya quiroz family and friends, insult or talk down to you? Never 01/09/2024 How often does anyone, olesya quiroz family and friends, threaten you with harm? Never 01/09/2024 How often does anyone, olesya quiroz family and friends, scream or curse at you? Never 01/09/2024 Transportation Needs Answer Date Record ed In the past 12 months, has l ack of reliable transportation kept you from medical appointments, meetings, work or from getting things needed for daily living? No 01/09/2024 Sex and Gender Information Value [...] 79 01/13/2024 9:59 AM CDT Temperature 36.6 C (97.9 F) 01/13/2024 6:49 AM CDT Respiratory Rate 16 01/13/2024 9:59 AM CDT [...] AM CDT) Fasting Status 01/13/2024 7:38 AM [facility] Sodium 138 135 - 145 mmol/L 01/13/2024 7:38 AM [facility] Potassium 3.6 3.4 - 5.1 mmol/L 01/13/2024 7:38 AM [facility] Chloride 104 97 - 110 mmol/L 01/13/2024 7:38 AM [facility] Carbon Dioxide 30 21 - 32 mmol/L 01/13/2024 7:38 AM [facility] Anion Gap 8 7 - 19 mmol/L 01/13/2024 7:38 AM [facility] Glucose 143(H) 70 - 99 mg/dL 01/13/2024 7:38 AM [facility] BUN 20 6 - 20 mg/dL 01/13/2024 7:38 AM [facility] Creatinine 1.16(H) 0.51 - 0.95 mg/dL 01/13/2024 7:38 AM [facility] Glomerular Filtration Rate 56(L) >=60 01/13/2024 7:38 AM [facility] Comment:eGFR 30-59 mL/min/1. 73m2 = Moderate decrease in kidney function. Stage 3 CKD (chronic kidney disease) or moderate kidney disease. Estimated GFR calculated using the CKD-EPI-R (2020) equation that does not include race in the creatinine calculation. BUN/Cr 17 7 - 25 01/13/2024 7:38 AM [facility] Calcium 8.9 8.4 - 10.2 mg/dL 01/13/2024 7:38 AM [facility] Bilirubin, Total 0.7 0.2 - 1.0 mg/dL 01/13/2024 7:38 AM CDT [facility] GOT/AST 16 <=37 Units/L 01/13/2024 7:38 AM CDT [facility] GPT/ALT 18 <64 Units/L 01/13/2024 7:38 AM CDT [facility] Alkaline Phosphatase 119(H) 45 - 117 Units/L 01/13/2024 7:38 AM CDT [facility] Albumin 3.0(L) 3.6 - 5.1 g/dL 01/13/2024 7:38 AM CDT [facility] Protein, Total 6.9 6.4 - 8.2 g/dL 01/13/2024 7:38 AM CDT [facility] Globulin 3.9 2.0 - 4.0 g/dL 01/13/2024 7:38 AM CDT [facility] A/G Ratio 0.8(L) 1.0 - 2.4 01/13/2024 7:38 AM CDT [facility] Blood VENOUS BLOOD SPECIMEN / Unknown Venipuncture / Unknown 01/13/2024 7:10 AM CDT 01/13/2024 7:15 AM CDT Nicholas Rios DO B[facility] LAB BLOOD ORDERA BLES Performing Organization Address City/State/[facility] [place] [address] from Last 3 Months or Most Recently Relevant to Health Maintenance Advance Directives * Selective Treatment/DNR (Latest Code Status on File) Date Activated Date Inactivated Comments 01/09/2024 3:54 PM 01/11/2024 1:38 PM Question Answer Comments CPR in case of Cardiac Arrest? No Intubation ( Pre-Arrest ) ? Yes Antiarrhythmics (Pre-Arrest)? Yes Cardioversion (Pre-Arrest)? Yes Vasopressor (Pre-Arrest)? Yes Care Teams Ornamenter Relationship Specialty Start Date End Date Marleni Jung [address] [place] [phone] PCP - General Family Practice 01/09/24
--- OUTSIDE RECORDS SUMMARY | 2024-08-28 13:20 | XMS_ITS | Encounter Summary ---
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 Not on file Not on file documented as of this encounter Progress Notes * Amilcar Documents - 08/06/2008 11:57 AM ELEMENTARY ASSISTANT TEACHER ENTARY ASSISTANT TEACHER documented in this encounter Plan of Treatment Not on file documented as of this encounter Visit Diagnoses Not on filedocumented in this encounter Care Teams Community Center Director Relationship Specialty Start Date End Date Raquel Gauthier MD [address] [place] [address] PCP - General 10/30/09 10/30/09 Aurelio Osei MD [address] [place] [address] PCP - General 03/11/14 Bakari Vasquez DO [address] [place] [address] PCP - General 01/31/13 03/10/14 Bakari Vasquez DO [address] [place] [address] PCP - General 01/25/13 01/30/13 Bakari Vasquez DO [address] [place] [address] PCP - General 01/21/13 01/24/13 Bakari Vasquez DO [address] [place] [address] PCP - General 01/09/13 01/20/13 Bakari Vasquez DO [address] [place] [address] PCP - General 01/03/13 01/08/13 Bakari Vasquez DO [address] [facility] [address] [place] [address] PCP - General 01/01/13 01/02/13 Bakari Vasquez DO 501 [facility] [address] [place] [address] PCP - General 12/25/12 12/31/12 documented as of this encounter
--- OUTSIDE RECORDS SUMMARY | 2024-08-28 13:20 | XMS_ITS | Encounter Summary ---
Author Organization [facility] Address [address] [place] [address] Care Team Providers Care Clamp Operator Name Role Phone Raquel Gauthier MD Primary Care Provider [phone] None, Provider Primary Care Provider Unavaila ble [...] Team (Late st Contact Info) Description 02/23/2008 [facility] [address] [place] [phone] Scanned, Documents ER Note (SCAN) (MIGRAINE [...] on filedocumented in this encounter Care Teams Clamp Operator Relationship Specialty Start Date End Date Raquel Gauthier MD [address] [place] [address] PCP - General 10/30/09 10/30/09 None, MD Aurelio [address] [place] [address] PCP - General 03/11/14 Bakari Vasquez DO [address] [place] [address] PCP - General 01/31/13 03/10/14 Bakari Vasquez DO [address] [place] [address] PCP - General 01/25/13 01/30/13 Bakari Vasquez DO [address] [place] [address] PCP - General 01/21/13 01/24/13 Bakari Vasquez DO [address] [place] [address] PCP - General 01/09/13 01/20/13 Bakari Vasquez DO [address] [place] [address] PCP - General 01/03/13 01/08/13 Bakari Vasqeuz DO 501 [facility] [address] [place] [address] PCP - General 01/01/13 01/02/13 Bakari Vasquez DO 501 [facility] [address] [place] [address] PCP - General 12/25/12 12/31/12 documented as of this encounter
--- OUTSIDE RECORDS SUMMARY | 2024-08-28 13:20 | XMS_ITS | Clinical Summary ---
Author Organization 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 file Not on file Last Filed Vital Signs Vital Sign Reading Time Taken Comments Blood Pressure 121/75 12/22/2017 7:30 PM CDT Pulse 64 12/22/2017 6:04 PM CDT Temperature 36.3 C (97.3 F) 12/22/2017 4:25 PM CDT Respiratory Rate 18 12/22/2017 6:04 PM CDT [...] Vaccines (1 of 2) 2019 COVID-19 Vaccine (2023-2 5 season) 2024 Influenza Adult (#1) 2024 05/24/2008 Meningococcal B Vaccine Aged Out No l onger eligible based on patient's age to complete [...] (PAP SMEAR) Routine 12/29/2007 10:56 AM CDT LLOYD MAMM DIG SCREENING Routine 07/23/2004 Screening Mamm-Mailg Neopl-Other Screening Mamm-Malig Neopl-Hi Risk from Last 3 Months or Most Recently Relevant to Health Maintenance Results * CYTOPATH CERV/VAG INTERPRET (PAP SMEAR) (12/29/2007 10:56 AM CDT) COPATH REPORT [address] [address] GYNECOLOGIC CYTOLOGY REPORT Name: VANGIE YUEN Specimen # : [id number] Age: 10 1970 (Age: 37) Location: [facility] Lab Sex: F Procedure Date: 12/29/2007 Hospital #: [id number] Date Processed: 01/02/2008 [facility] Physician(s): Raysa Diehl Patient History: LMP: 12-15-07 Mentrual/Preg: Contraceptive: Other:Negative Cancer History: Pertinent History: Negative Treatment History: SPECIMEN: Clinic Screening Thin Prep Pap ADEQUACY: Satisfactory for Evaluation. DIAGNOSIS: NEGATIVE FOR INTRAEPITHELIAL LESIONS OR MALIGNANCY. Demetrius Álvarez (ASCP) Electronically Signed Out On 01/03/2008 This document has been printed from the electronic file of the [facility] Information System. This is not an official medical record copy. To obtain an official copy, please refer to the patient's permanent medical record at [facility]. [facility] 12/29/2007 10:5 6 AM CDT 01/02/2008 10:56 AM CDT us Raysa NIEVES PATHOLOGY/CYTOLOGY ORDERABLES Final Result [facility] * LLOYD MAMM DIG SCREENING (MAMDSCRB) (07/23/2004) Anatomical Region Laterality Modality Mammography Narrative Procedure Note Adrian Tameka - 07/23/2004 12:00 AM BACTERIOLOGIST SOIL Refer. Physician: Samir Gonzalez MD Refer. TELEGRAPH OPERATOR/PA: X-Ray #: [id number] X-Ray Tech: MAMMOGRAPHY REPORT -- [facility] X-RAY VIEW(S) ORDERED: Lloyd Mammo Dig Screen CAD w or w/o Dig Screen REQUISITION HISTORY: Compare to Joyce 05/12/2000. INTERPRETATION: Digital bilateral mammogram with CAD. INDICATION: Screening. Compared to May 12, 2000. FINDINGS: There is no significant change in appearance. There are nocurrent findings suggestive of new or enlarging breast malignancy. BIRADS CATEGORY: 1 - Negative. GMG/jmb Samir Gonzalez MD MAMMO Final Re sult from Last 3 Months or Most Recently Relevant to Health Maintenance Insurance [employer] MANUEL SWENSON [id number] Care Teams Rotary Dump Operator Relationship Specialty Start Date End Date None, Provider, PCP - General 03/11/14
--- OUTSIDE RECORDS SUMMARY | 2024-08-28 13:20 | XMS_ITS | Patient Health Summary ---
Author Organization [facility] Address [address] [place] [address] Care Team Providers Care Programming Engineer Name Role Phone Marleni Jung MD Primary Care Provider + Note from [facility],non-owned Affiliates and Associated Physician Practices is amultiple site organization consisting of ambulatory clinics and hospital sitesin [place], [place], [place] and [place]. This disclosure is being madepursuant to the Care Everywhere program and may not contain all information available regarding this patient. Last updated 18.[facility] Social History Tobacco Use Types Packs/Day Years [...] (Rubeola) Antibody IgG 5.8(H) SEE BELOW IV [facility] Comment: <0.9 Negative presumed non-immune >=0.9 to <1.1 Equivocal >=1.1 Positive presumed immune Interpretation Rubeola [facility] Comment: When equivocal results are obtained, another specimen should be collected 10 to 14 days later, and tested in parallel with the initial specimen. If the second specimen is also equivocal, the patient is negative for primary or recent infection, and equivocal for antibody status. If the second sample is positive, the patient can be considered to have a primary infection. BLOOD SPECIMEN / Unknown 03/29/2012 11:38 AM CDT 03/29/2012 6:44 PM CDT Provider Unknown LAB - CHEMISTRY ORDJavad OSHEA Performing Organization Address [place]/[facility] Co de Phone Number [facility] [address] [place] [phone] * (ABNORMAL) MUMPS ANTIBODY IGG (03/29/2012 11:38 AM CDT) Mumps Virus Antibody IgG 7.2(H) SEE BELOW IV [facility] Comment: <0.9 Negative presumed non-immune >=0.9 to <1.1 Equivocal >=1.1 Positive presumed immune BLOOD SPECIMEN / Unknown 03/29/2012 11:38 AM CDT 03/29/2012 6:44 PM CDT Provider Unknown LAB - CHEMISTRY ORDE DAYO Performing Organization Address [place]/[facility] Co de Phone Number [facility] [address] [place] [phone] * RUBELLA ANTIBODY IGG (03/29/2012 11:38 AM CDT) Rubella Antibody 34.3 SEE BELOW IU/ml [facility] Comment: =>10.0 Positive-Immune 5.0-9.9 Suggest Repeat Testing <5.0 Negative-Nonimmune BLOOD SPECIMEN / Unknown 03/29/2012 11:38 AM CDT 03/29/2012 6:44 PM CDT Provider Unknown LAB - SEROLOGY ORDER JASWANT Performing Organization Address [place]/[facility] Co de Phone Number [facility] [address] [place] [phone] * HEPATITIS B SURFACE ANTIBODY (03/29/2012 11:38 AM CDT) Pathologist [facility] Hepatitis B Virus Surface Antibody Nonreactive Nonreactive [facility] BLOOD SPECIMEN / Unknown 03/29/2012 11:38 AM CDT 03/29/2012 6:44 PM CDT Provider Unknown LAB - CHEMISTRY TIFFANIE OSHEA Performing Organization Address City/State/[facility] Co de Phone Number [facility] [address] [place] [address] Care Teams Programming Engineer Relationship Specialty Start Date End Date Marleni Jung MD [address] [place] [address] PCP - General Family Medicine 03/03/24
--- OUTSIDE RECORDS SUMMARY | 2024-08-28 13:20 | XMS_ITS | Clinical Summary ---
Author Organization [facility] Address [address] [place] [address] Care Team Providers Care Financial Services Associate Name Role Phone Marleni Jung MD Primary Care Provider + Source Comments [facility],non-owned Affiliates and Associated Physician Practices is amultiple site organization consisting of ambulatory clinics and hospital sitesin [place], [place], [place] and [place]. This disclosure is being madepursuant to the Care Everywhere program and may not contain all information available regarding this patient. Last updated 18.[facility] Social History Tobacco Use Types Packs/Day Years Used Date Smoking Tobacco: Never Assessed Sex and Gender Information Value Date Recorded Sex Assigned at Not on file Gender Identity Not on file Sexual Orientation Not on file Plan of Treatment Upcoming Encounters Date Type Department Care Team (Late st Contact Info) Description 09/27/2024 11:30 AM CDT Office Visit [facility] [address] [place] [address], [facility] [place] [address] [place] [address] [place] [phone] Health Maintenance Due Date Last Done Comments COLOGUARD (AGES 45-75) - COL ON CA SCREENING 1970 COLON MONITORING 1970 COLONOSCOPY - COLON CA SCREENING 1969 CT COLONOGRAPHY - COLON CA SCREENING 1970 Colorectal Cancer Screening 1970 FIT - COLON CA SCREENING 1969 FLEX SIG - COLON CA SCREENING 1970 LIPID TESTING 1970 MAMMOGRAM 1970 HIV SCREENING 1984 HEPATITIS C SCREENING 05/06/1987 DTAP/TDAP/TD VACCINES (1 - Tdap) 1988 HEPATITIS B VACCINE (1 of 3 - 19+ 3-dose series) 1988 PAP SMEAR 12/28/2010 12/29/2007 PNEUMOCOCCAL VACCINE 50+ (1 of 1 - PCV) 2019 ZOSTER VACCINE (1 of 2) 2019 COVID-19 VACCINE (1 - 2023-2 5 season) 2024 INFLUENZA VACCINE (#1) 2024 05/24/2008 DEPRESSION SCREENING 07/18/2024 HIB VACCINE Aged Out No longer eligi ble based on patient's age to complete this topic HPV VACCINE Aged Out No longer eligi ble based on patient's age to complete this topic MENINGOCOCCAL (Group B) VACCINE Aged Out No longer eligible based on patient's age to complete this topic MENINGOCOCCAL VACCINE Aged Out No binta estefany eligible based on patient's age to complete this topic Care Teams Financial Services Associate Relationship Specialty Start Date End Date Marleni Jung MD [address] [facility] [address] [place] [address] PCP - General Family Medicine 03/03/24
--- OUTSIDE RECORDS SUMMARY | 2024-08-28 13:20 | XMS_ITS | CONTINUITY OF CARE DOCUMENT ---
Author Name leylamarie nicolekaci Address Unknown Organization [facility] Address [address] [place] [address] Phone [phone] Care Team Providers Care Enrichment Teacher Name Role Phone Amari PAZ, Lalit Unavailable [phone] CHRISTIAN BAILEY MD Unavailable [phone] CHRISTIAN BAILEY MD Unavailable [phone] PROBLEMS Condition Status Date Provider Notes Venous hypertension - unspecified active Levin steph Fitzpatrick MD Kidney Disease active Lalitmakayla Fitzpatrick MD Hyperlipidemia active Lalit Fitzpatrick MD Diabetes, Type 2 active Lalit Fitzpatrick MD ENCOUNTERS Date Type Provider Location Encounter Diag nosis - In-person encounter Office Visit Lalit Fitzpatrick MD [facility] Office Diabetes, Type 2HyperlipidemiaKidney DiseaseVenous hypertension [...] Payer name Policy type / Coverage type [employer] party ID [employer] [id number] ADVANCE DIRECTIVES Name Date DISCUSSED - NO DECISION MADE TREATMENT PLAN Date Name Performer [id number] P nichol comes in for evaluation of [...] check venous doppler and f/u Amari PAZ [id number],C, H er updated medication list for this [...] under the skin every week Amari PAZ [id number],C,wc at home Levin steph Fitzpatrick MD [id number],C,a pkd f ather on Amari PAZ Cardiology:Patient [...]
--- OUTSIDE RECORDS SUMMARY | 2024-08-28 13:20 | XMS_ITS | Data Portability ---
Author Organization [place] [facility], Main Office Address [address] [place] [address] Care Team Providers Care Medical Receptionist Name Role Phone CHRISTIAN GEORGE Primary Care Provider CHRISTIAN GEORGE Referring Provider Assessment Encounter Date Assessment Date Assessment LastModified by Organization Details LastModified Time 10/12/2022 10/12/2022 Blood work Will have her see Cardiology about her veins Sleep study Targets for blood pressure A1c and lipid discussed Follow-up 4 months Not available 10/12/2022 22:55:15 Plan of Treatment [...] 3.910 uIU/m L 0.465- 4.680 Not Available [facility] (Lab) [address] [place], [address], 06/15/2022 21:20:58 06/15/20 22 06/15/2022 T3 FREE free T3 3.2 pg/mL 2.77-5 .27 Not Available [facility] (Lab) [address] [place], [address], 06/15/2022 21:15:55 06/15/20 22 06/15/2022 T4 FREE free T4 1.31 NG/dL 0.78-2 .19 Not Available [facility] (Lab) [address] [place], [address], 06/15/2022 21:15:50 06/15/20 22 06/15/2022 HEMOG LOBIN A1C HA1C 5.3 % 4.0-6. 0 Diabe magdiel Scree alan Crite erwin: <5.7% Consi stent with absen ce of diabe magdiel 5.7-6 .4% Consi stent with incre ased risk for diabe magdiel (pred iabet es) >OR=6 .5% Consi stent with diabe magdiel REFER ENCE: Diabe magdiel Care 2016, 39(Levin ppl.1 ):s13 -s22 Not Available [facility] (Lab) [address] [place], [address], 06/15/2022 21:07:56 06/15/20 22 06/15/2022 COMPR EHENS ANISHA METAB OLIC PANEL anion gap 15.3 mmol/ L 14-22 Not Available [facility] (Lab) [address] [place], [address], 06/15/2022 20:49:07 06/15/20 22 06/15/2022 COMPR EHENS ANISHA METAB OLIC PANEL sodium 140 mmol/ L 137-14 5 Not Available [facility] (Lab) [address] [place], [address], 06/15/2022 20:49:07 06/15/20 22 06/15/2022 COMPR EHENS ANISHA METAB OLIC PANEL potassium 4.3 mmol/ L 3.5-5. 1 Not Available [facility] (Lab) [address] [place], [address], 06/15/2022 20:49:07 06/15/20 22 06/15/2022 COMPR EHENS ANISHA METAB OLIC PANEL chloride 101 mmol/ L 98-107 Not Available [facility] (Lab) [address] [place], [address], 06/15/2022 20:49:07 06/15/20 22 06/15/2022 COMPR EHENS ANISHA METAB OLIC PANEL carbon dioxide 28 mmol/ L 22-30 Not Available [facility] (Lab) [address] [place], [address], 06/15/2022 20:49:07 06/15/20 22 06/15/2022 COMPR EHENS ANISHA METAB OLIC PANEL glucose 98 mg/dL 70-99 Not Available [facility] (Lab) [address] [place], [address], 06/15/2022 20:49:07 06/15/20 22 06/15/2022 COMPR EHENS ANISHA METAB OLIC PANEL BUN 17 mg/dL 8-19 Not Available [facility] (Lab) [address] [place], [address], 06/15/2022 20:49:07 06/15/20 22 06/15/2022 COMPR EHENS ANISHA METAB OLIC PANEL creatinine 1.07 mg/dL 0.66-1 .25 Not Available [facility] (Lab) [address] [place], [address], 06/15/2022 20:49:07 06/15/20 22 06/15/2022 COMPR EHENS ANISHA METAB OLIC PANEL GFR 54 Refer ence Range : [place] ge GFR Healt hy Adult : >60 [...] calcu lator is avail able on the [facility] websi te: https ://ww w.kid jimmy.o rg/pr ofess ional s/kdo qi/gf r_cal culat or Not Available [facility] (Lab) [address] [place], [address], 06/15/2022 20:49:07 06/15/20 22 06/15/2022 COMPR EHENS ANISHA METAB OLIC PANEL alkaline phosphatase 114 U/L 38-126 Not Available [facility] (Lab) [address] [place], [address], 06/15/2022 20:49:07 06/15/20 22 06/15/2022 COMPR EHENS ANISHA METAB OLIC PANEL alanine aminotransfe rase 36 U/L 0-35 high Not Available [facility] (Lab) [address] [place], [address], 06/15/2022 20:49:07 06/15/20 22 06/15/2022 COMPR EHENS ANISHA METAB OLIC PANEL aspartate aminotransfe rase 39 U/L 15-37 high Not Available [facility] (Lab) [address] [place], [address], 06/15/2022 20:49:07 06/15/20 22 06/15/2022 COMPR EHENS ANISHA METAB OLIC PANEL bilirubin, total 1.20 mg/dL 0.20-1 .30 Not Available [facility] (Lab) [address] [place], [address], 06/15/2022 20:49:07 06/15/20 22 06/15/2022 COMPR EHENS ANISHA METAB OLIC PANEL calcium 9.6 mg/dL 8.4-10 .2 Not Available [facility] (Lab) [address] [place], [address], 06/15/2022 20:49:07 06/15/20 22 06/15/2022 COMPR EHENS ANISHA METAB OLIC PANEL total protein 8.2 g/dL 6.3-8. 2 Not Available [facility] (Lab) [address] [facility], [address], 06/15/2022 20:49:07 06/15/20 22 06/15/2022 COMPR EHENS ANISHA METAB OLIC PANEL albumin 4.8 g/dL 3.4-5. 0 Not Available [facility] (Lab) [address] [place], [address], 06/15/2022 20:49:07 06/15/20 22 06/15/2022 COMPR EHENS ANISHA METAB OLIC PANEL globulin 3.4 g/dL 2.6-4. 2 Not Available [facility] (Lab) [address] [place], [address], 06/15/2022 20:49:07 06/15/20 22 06/15/2022 COMPR EHENS ANISHA METAB OLIC PANEL A/G ratio 1.4 ratio 1.0-2. 0 Not Available [facility] (Lab) [address] [place], [address], 06/15/2022 20:49:07 06/15/20 22 06/15/2022 LIPID PANEL cholesterol 238 mg/dL 140-19 9 high NIH ALEX NSUS RECOM MENDA TION FOR JIM STERO L: ADULT CHILD LOW RISK: <200 <170 BORDE RLINE : <200- 239 ----- HIGH RISK: >240 >200 Not Available [facility] (Lab) [address] [place], [address], 06/15/2022 20:49:02 06/15/20 22 06/15/2022 LIPID PANEL triglyceride s 109 mg/dL 0-150 NIH ALEX NSUS REPOR T RECOM MENDA TION FOR TRIGL YCERI VI: ADULT CHILD LOW RISK: <150 ----- BODER LINE: 150-1 99 ----- HIGH RISK: >200 ----- Not Available [facility] (Lab) [address] [place], [address], 06/15/2022 20:49:02 06/15/20 22 06/15/2022 LIPID PANEL HDL cholesterol 83 mg/dL 40- Not Available [facility] (Lab) [address] [place], [address], 06/15/2022 20:49:02 06/15/20 22 06/15/2022 LIPID PANEL [...] WILL NOT BE REPOR NANCY. Not Available [facility] (Lab) [address] [place], [address], 06/15/2022 20:49:02 06/15/20 22 06/15/2022 CBC/C OMPLE TE BLD COUNT W/DIF F white blood cells 7.8 x10'3 /uL 4.2-10 .8 Not Available [facility] (Lab) [address] [place], [address], 06/15/2022 19:52:59 06/15/20 22 06/15/2022 CBC/C OMPLE TE BLD COUNT W/DIF F red blood cells 5.19 x10'6 /uL 3.80-5 .20 Not Available [facility] (Lab) [address] [place], [address], 06/15/2022 19:52:59 06/15/20 22 06/15/2022 CBC/C OMPLE TE BLD COUNT W/DIF F hemoglobin 15.2 g/dL 12.0-1 5.6 Not Available [facility] (Lab) [address] [place], [address], 06/15/2022 19:52:59 06/15/20 22 06/15/2022 CBC/C OMPLE TE BLD COUNT W/DIF F hematocrit 45.4 % 35.7-4 5.7 Not Available [facility] (Lab) [address] [place], [address], 06/15/2022 19:52:59 06/15/20 22 06/15/2022 CBC/C OMPLE TE BLD COUNT W/DIF F mean red cell volume 87.5 fL 82.0-9 9.0 Not Available [facility] (Lab) [address] [place], [address], 06/15/2022 19:52:59 06/15/20 22 06/15/2022 CBC/C OMPLE TE BLD COUNT W/DIF F mean red cell hemoglobin 29.3 pg 27.0-3 3.0 Not Available [facility] (Lab) [address] [place], [address], 06/15/2022 19:52:59 06/15/20 22 06/15/2022 CBC/C OMPLE TE BLD COUNT W/DIF F mean RBC HGB concentratio n 33.5 g/dL 31.0-3 6.0 Not Available [facility] (Lab) [address] [place], [address], 06/15/2022 19:52:59 11/29/20 22 06/15/2022 CBC/C OMPLE TE BLD COUNT W/DIF F red cell distribution width 14.4 % 11.8-1 5.5 Not Available [facility] (Lab) [address] [place], [address], 06/15/2022 19:52:59 06/15/20 22 06/15/2022 CBC/C OMPLE TE BLD COUNT W/DIF F platelets 210 x10'3 /uL 150-40 0 Not Available [facility] (Lab) [address] [place], [address], 06/15/2022 19:52:59 06/15/20 22 06/15/2022 CBC/C OMPLE TE BLD COUNT W/DIF F mean platelet volume 12.5 fL 9.0-12 .4 high Not Available [facility] (Lab) [address] [place], [address], 06/15/2022 19:52:59 06/15/20 22 06/15/2022 CBC/C OMPLE TE BLD COUNT W/DIF F neutrophils 59.9 % 39.0-7 2.0 Not Available [facility] (Lab) [address] [place], [address], 06/15/2022 19:52:59 06/15/20 22 06/15/2022 CBC/C OMPLE TE BLD COUNT W/DIF F lymphocytes 31.5 % 16.0-4 7.0 Not Available [facility] (Lab) [address] [place], [address], 06/15/2022 19:52:59 06/15/20 22 06/15/2022 CBC/C OMPLE TE BLD COUNT W/DIF F monocytes 5.5 % 5.0-12 .0 Not Available [facility] (Lab) [address] [place], [address], 06/15/2022 19:52:59 06/15/20 22 06/15/2022 CBC/C OMPLE TE BLD COUNT W/DIF F eosinophils 2.1 % 1.0-7. 0 Not Available [facility] (Lab) [address] [place], [address], 06/15/2022 19:52:59 06/15/20 22 06/15/2022 CBC/C OMPLE TE BLD COUNT W/DIF F basophils 0.6 % 0.0-2. 0 Not Available [facility] (Lab) [address] [place], [address], 06/15/2022 19:52:59 06/15/20 22 06/15/2022 CBC/C OMPLE TE BLD COUNT W/DIF F immature granulocytes 0.4 % 0.00-0 .50 Not Available [facility] (Lab) [address] [place], [address], 06/15/2022 19:52:59 06/15/20 22 06/15/2022 CBC/C OMPLE TE BLD COUNT W/DIF F neutrophils, absolute count 4.65 x10'3 /uL 1.5-8. 0 Not Available [facility] (Lab) [address] [place], [address], 06/15/2022 19:52:59 06/15/20 22 06/15/2022 CBC/C OMPLE TE BLD COUNT W/DIF F lymphocytes, absolute count 2.45 x10'3 /uL 1.07-3 .43 Not Available [facility] (Lab) [address] [place], [address], 06/15/2022 19:52:59 06/15/20 22 06/15/2022 CBC/C OMPLE TE BLD COUNT W/DIF F monocytes, absolute count 0.43 x10'3 /uL 0.29-0 .99 Not Available [facility] (Lab) [address] [place], [address], 06/15/2022 19:52:59 06/15/20 22 06/15/2022 CBC/C OMPLE TE BLD COUNT W/DIF F eosinophils, absolute count 0.16 x10'3 /uL 0.02-0 .53 Not Available [facility] (Lab) [address] [place], [address], 06/15/2022 19:52:59 06/15/20 22 06/15/2022 CBC/C OMPLE TE BLD COUNT W/DIF F basophils, absolute count 0.05 x10'3 /uL 0.01-0 .08 Not Available [facility] (Lab) [address] [place], [address], 06/15/2022 19:52:59 06/15/20 22 06/15/2022 CBC/C OMPLE TE BLD COUNT W/DIF F immature granulocytes ,absolute 0.03 x10'3 /uL 0.00-0 .05 Not Available [facility] (Lab) [address] [place], [address], 06/15/2022 19:52:59 06/15/20 22 06/15/2022 CBC/C OMPLE TE BLD COUNT W/DIF F nucleated red blood cells 0.0 % -0 Not Available [facility] (Lab) [address] [place], [address], 06/15/2022 19:52:59 06/15/20 22 06/15/2022 CBC/C OMPLE TE BLD COUNT W/DIF F NRBC# 0.00 x10'3 /uL Not Available [facility] (Lab) [address] [place], [address], 06/15/2022 19:52:59 Result Notes None recorded. Problems Name Problem SNOMED Code Status Onset Date Resolution Date Notes Provider Name and Address Organization Details Recorded Time Varicose veins of lower extremity 12990757 Active 2022 HOLLY Tan - [facility] 3 15:52:00 Sleep disorder 21341131 Active 2022 GEOVANNY Roland, [facility] 3 17:13:30 Bipolar disorder 93206656 Active 2016 Not Available [facility] 3 03:14:58 Blood glucose outside reference range 017444961 Active Not Available [facility] 3 03:14:58 Postoperative visit 114604848 Active 2020 Not Available [facility] 3 03:14:58 Equinus contracture of the ankle 537684171 Active 2020 Not Available [facility] 3 03:14:58 Postoperative pain 281388515 Active 2020 Not Available [facility] 3 03:14:58 Enthesopathy of foot region 780476142 Active 2020 Not Available [facility] 3 03:14:59 Adult type polycystic kidney disease type 2 415418236 Active 2019 Not Available [facility] 3 03:14:59 Edema 032914178 Active Not Available [facility] 3 03:14:59 Hypertriglyce ridemia 324890397 Active 2016 Not Available [facility] 3 03:14:59 Type 2 diabetes mellitus without complication 654722326 Active 2021 Not Available [facility] 3 03:14:59 Depressive disorder 05810236 Active Not Available [facility] 3 03:14:59 Sinusitis 67574877 Active Not Available [facility] 3 03:14:59 Dyslipidemia 919474529 Active 2021 Not Available [facility] 3 03:14:59 Posttraumatic stress disorder 04813207 Active 2016 Not Available [facility] 3 03:14:59 Upper respiratory infection 49715640 Active 2021 Not Available [facility] 3 03:14:59 Dysfunction of eustachian tube 48166825 Active Not Available [facility] 3 03:14:59 Insertional Achilles tendinopathy 508440607 Active 2020 Not Available [facility] 3 03:14:59 Diabetes mellitus 18929427 Active Not Available [facility] 3 03:14:59 Chronic rhinitis 52126470 Active 2020 Not Available [facility] 3 03:15:00 Problem Notes None recorded. Procedures Surgical History Date Name Laterality Status Provider Name and Address Organization Details Recorded Time 1 Foot Surgery completed Not Available [facility] 023 03:07:49 0 Colonoscopy completed Not Available [facility] 09/16/19 23 03:07:49 Imaging Results None recorded. [...] n rash Not available Not available 09/15/2022 87118 8003 SNOMED Not Available [facility] 3 03:26:30 5860 niacin medicatio n flushing itching Not available Not available Not available 09/15/2022 7393 RxNorm Not Available [facility] 3 03:26:30 Medications Name Sig Start Date [...] e 205.5 mcg (0.15 %) nasal spray [place] 2 sprays twice a day by intranas [...] Updated DateTime 3 172.72 cm 36.2 kg/m2 735561. 98 g 98 [degF] 82 /min 130 mm[Hg] 76 mm[Hg] GEOVANNY Buckley [place] - [place] [employer] [facility] 3 15:03:35 Date Recorded Body mass index (BMI) Body mass index (BMI) Body mass index (BMI) Body mass index (BMI) Body height Body height Body height Body height Heart rate Heart rate Heart rate Heart rate Body temperature Body temperature Body temperature Body temperature Body weight Body weight Body weight Body weight Systolic blood pressure Diastolic blood pressure Systolic blood pressure Diastolic blood pressure Systolic blood pressure Diastolic blood pressure Systolic blood pressure Diastolic blood pressure Provider Name and Address Organization Details Last Updated DateTime 3 32.8 kg/m2 31 kg/m2 30.7 kg/m2 32.5 kg/m2 172.72 cm 172.72 cm 172.72 cm 172.72 cm 66 /min 76 /min 70 /min 78 /min 96.4 [degF] 97.1 [degF] 97.6 [degF] 97.7 [degF] 07702.9 5 g 94677.8 4 g 80281.6 6 g 90538.7 7 g 120 mm[Hg] 80 mm[Hg] 120 mm[Hg] 80 mm[Hg] 110 mm[Hg] 77 mm[Hg] 122 mm[Hg] 68 mm[Hg] Not Available [facility] 3 03:10:50 Social History Question Answer Notes LastModified by Organization Details LastModified Time Tobacco Smoking Status Never Smoker HOLLY Tan [employer] 10/12/2022 14:47:59 Do You Have An Advance Directive? No MIGRATION.[id number] [id number] Information not available 09/15/2022 What Is Your Level Of Alcohol Consumption? None MIGRATION.0301 [id number] Information not available 09/15/2022 Do You Wear A Helmet When Biking? No Does Not Bike Information not available 10/12/2022 What Is Your Level Of Caffeine Consumption? None MIGRATION.0301 [id number] Information not available 09/15/2022 How Much Tobacco Do You Chew? None MIGRATION.0301 [id number] Information not available 09/15/2022 In The 14 [...] Of Diet Are You Following? DIABETIC MIGRATION.0301 [id number] Information not available 09/15/2022 Which Illicit Or Recreational Drugs Have You Used? None Information not available 10/12/2022 Do You Or Have You Ever Used E-cigarettes Or Vape? Never Used Electronic Cigarettes Information not available 10/12/2022 What Is The Highest Grade Or Level Of School You Have Completed Or The Highest Degree You Have Received? [id number] Information not available 10/12/2022 What Is Your [...] Do You Have A Medical Power Of Car [place]erry [place]? No Information not available 10/12/2022 What Was The Date Of Your Most Recent Tobacco Screening? 10/12/2022 [email or web address] Information not available 10/12/2022 Do You Have Any Pets? Yes Information not available 10/12/2022 What Is Your Relationship Status? MIGRATION.0301 [id number] Information not available 09/15/2022 Do You Use Your Seat Belt Or Car Seat Routinely? Yes Information not available 10/12/2022 Do You Have Smoke And Carbon Monoxide Detectors In Your Home? Yes Information not available 10/12/2022 Are You Passively Exposed To Smoke? No Information not available 10/12/2022 Do You Or Have You Ever Used Smokeless Tobacco? Never Used Smokeless Tobacco MIGRATION.0301 [id number] Information not available 09/15/2022 Are There Any Smokers In Your House? No Information not available 10/12/2022 How Much Tobacco Do You Smoke? No MIGRATION.0301 [id number] Information not available 09/15/2022 What Types Of Sporting Activities Do You Participate In? None Information not available 10/12/2022 Do You Feel Stressed (tense, Restless, Nervous, Or Anxious, Or Unable To Sleep At Night)? [id number] Information not available 10/12/2022 Do You Use [...] Time What is your exercise level? Occasional [id number] Information not available 09/15/2022 Mental Status None recorded. Family History Relationship Description Onset Age of this Age Resolved Age Notes LastModified by Organization Details LastModified Time Father Adult type polycystic kidney disease type 2 [id number] [id number] Not available 09/15/2022 03:07:52 Brother Alcoholism MIGRATION.826 [id number] Not available 09/15/2022 03:07:53 Brother Multiple congenital cysts of kidney MIGRATION.157 [id number] Not available 09/15/2022 03:07:53 Sister Multiple congenital cysts of kidney MIGRATION.661 [id number] Not available 09/15/2022 03:07:53 Sister Multiple congenital cysts of kidney MIGRATION.228 [id number] Not available 09/15/2022 03:07:53 Sister Multiple congenital cysts of kidney MIGRATION.753 [id number] Not available 09/15/2022 03:07:53 Daughter Malignant tumor of thyroid gland MIGRATION.205 [id number] Not available 09/15/2022 03:07:53 Medical History Condition Response NERVE DISEASE N BLINDNESS N RHEUMATIC FEVER N KIDNEY STONES N BLADDER PROBLEMS N MRSA N OTHER # 1 Y POLIO N LUNG DISEASE/DISORDER N RADIATION / CHEMOTHERAPY N COPD N Other # 2 N BLOOD DISEASES N SURGERY N EAR OR HEARING PROBLEMS N MUMPS N BOWEL PROBLEMS N DEPRESSION (INCLUDING POST ) Y STROKE/TIA N ULCERS N BENIGN PROSTATIC HYPERPLASIA N MEASLES N MYOCARDIAL INFARCTION N OBESITY N GERD/NAUSEA N ANEURYSM N URINARY/BLADDER/KIDNEY PROBLEMS N CORONARY ARTERY DISEASE (CAD) N ADDICTION CONCERNS N ENDOMETRIOSIS N Impotence N USE OF BLOOD THINNERS N SKIN [...] APNEA N CHICKENPOX N INFECTIOUS DISEASE N HEART ARRHYTHMIA N PROSTATE N INSOMNIA N HIGH CHOLESTEROL / HYPERLIPIDEMIA Y HYPERTHYROIDISM N EYE PROBLEMS N NEUROLOGICAL PROBLEMS N EDEMA N CHRONIC PAIN SYNDROME N HYPOTHYROIDISM N CAROTID BLOCKAGE N CONSTIPATION N BACK / NECK PROBLEMS N HAVE YOU BEEN HOSPITALIZED OR SEEN IN [facility] IN THE PAST YEAR ? N ATHEROSCLEROSIS N BREAST PROBLEMS N DIALYSIS N ECZEMA N OSTEOPOROSIS N ARTHRITIS N NO SIGNIFICANT PAST MEDICAL HISTORY N APPENDICITIS N DIABETES, TYPE Y BAD TEETH N ENT N HEARTBURN / REFLUX N AUTISM SPECTRUM DISORDER (ASD) N HEPATITIS / LIVER DISEASE N GOUT N SLEEP DISORDER Y ALZHEIMER'S DISEASE N Brain Problems N HERPES N DEMENTIA N HEADACHES/MIGRAINES N SEIZURES/EPILEPSY N VASCULAR DISEASE N PACEMAKER N Blood Disorder N DIZZINESS N HEART DISEASE/HEART PROBLEMS N KIDNEY DISEASE Y MULTIPLE SCLEROSIS N CARDIAC ARRHYTHMIA N CANCER: SPECIFY N ATRIAL FIBRILLATION N Gall Stones N PULMONARY EMBOLISM N AUTOIMMUNE DISEASE N Gynecological HistoryNo gynecological history recorded. Obstetrics History GPAL:G 0 P 0 0 0 0 Past Encounters Encounter ID Performer Location Encounter Start Date Encounter Closed Date Diagnosis/Indication Diagnosis SNOMED-CT Code Diagnosis ICD10 Code Diagnosis Note [id number] [facility] [place] [address] [place] [address] 10/02/2020 00:00:00 10/06/2020 13:47:25 [id number] [facility] [place] [address] [place] [address] 10/20/2020 00:00:00 10/20/2020 20:04:31 [id number] [facility] [place] [address] [facility] [address] , [place] [address] 10/30/2020 00:00:00 10/30/2020 22:50:17 [id number] [facility] [place] [address] [facility] [address] [place] [address] 12/08/2020 00:00:00 12/09/2020 08:50:09 [id number] [facility] [place] [address] [address] y , [place] [address] 03/05/2021 00:00:00 03/08/2021 21:17:45 [id number] [facility] [address], [facility] [address] [place] [address] 04/17/2021 00:00:00 04/18/2021 12:35:14 [id number] [facility] [place] [address] [address] y , [place] [address] 07/14/2021 00:00:00 07/14/2021 22:57:32 [id number] [facility] [place] [address] [place] [address] y , [place] [address] 11/10/2021 00:00:00 11/16/2021 23:38:40 [id number] [facility] [place] [address] [address] [place] [address] 12/08/2021 00:00:00 12/08/2021 21:36:09 [id number] [facility] [place] [address] [place] [address] y , [place] [address] 01/05/2022 00:00:00 01/05/2022 21:12:24 [id number] [facility] [place] [address] [facility] [place] [address] 02/18/2022 00:00:00 03/14/2022 16:43:12 [id number] [facility] [place] [address] [facility] [place] [address] 06/15/2022 00:00:00 07/07/2022 12:08:43 [id number] Christian George MD [facility] [place] [address] [facility] [place] [address] 10/12/2022 14:47:21 10/12/2022 15:55:00 Dyslipidemia 434483005 E78.5 Chronic rhinitis 8590118 6 J31.0 Type 2 andres betes mellitus without complication 749203538 E11.9 Varicose v eins of lower extremity 38565486 I83.93 Health Concerns Section Related Observation LastModified by Organization Detai ls LastModified Time None Recorded Concern Status LastModified by Organization Details LastModified Time None Recorded Advance Directives Directive N: Payers Encounter Date Sequence Insurance Name Policy Number Policy Meier Covered Member ID Meier Member ID Guarantor Name 10/12/2022 1 [employer] - [facility] OPEN ACCESS PLUS (PPO) [id number] Vangie Yuen [id number] Vangie Yuen Notes Date Note Type Note Provider Name and Address Organization Details Recorded Time 10/12/2022 text/html Some snoring perhapsVaricose veins bother herTrouble with her diabetes trying to watch diet Christian George MD [address] [place] [address] [address], [place], [address], [facility] 10/12/2022 22:56:01 OBGyn Episode No OBEpisode recorded.
--- OUTSIDE RECORDS SUMMARY | 2024-08-28 13:20 | XMS_ITS | Clinical Summary ---
Author Organization [facility] Address [address] [place] [address] Care Team Providers Care Egg Trayer Name Role Phone Marleni Jung Primary Care Provider [phone] Allergies Active Allergy Reactions Criticality Noted Date [...] Recorded In the past 12 months has [employer], gas, oil, or water [employer] threatened to shut off services in your home? No 01/09/2024 PHQ-2 Answer Date Recorded Initial depression screening score: 0 01/09/2024 Social Connections Answer Date Recorded How often do you see or talk to people that you care about and feel close to? (For example: talking to friends on the phone, visiting friends or family, going to gnosticist or club meetings) 5 or more times [...] 2014 Fecal Occult Blood 2014 Sigmoidoscopy 2014 Pneumococcal Vaccine 50+ (1 of 1 - PCV) 2019 Shingles Vaccine (1 of 2) 2019 COVID-19 Vaccine (1 - 2023- season) 2024 Influenza Vaccine (#1) 2024 05/24/2008 Depression Screening 01/08/2025 01/09/2024 GFR 01/12/2025 01/13/2024, 12/17, 01/10/2024, Additional history exists HPV Vaccine Aged Out No longer eligi ble based on patient's age to complete this topic Hepatitis A Vaccine Aged Out No longe r eligible based on patient's age to complete this topic Meningococcal Serogroup B Vaccine Aged Out No longer eligible based on patient's age to complete this topic Meningococcal Vaccine Aged Out No binta estefany eligible based on patient's age to complete this topic Pneumococcal Vaccine 0-49 Aged Out No longer eligible based on patient's age to complete this topic Procedures Procedure Name Priority Date/Time Associated Diagnosis Comments COMPREHENSIVE METABOLIC PANEL STAT 01/13/2024 7:10 AM CDT from Last 3 Months or Most Recently Relevant to Health Maintenance Results * (ABNORMAL) Comprehensive Metabolic Panel (01/13/2024 7:10 AM CDT) Fasting Status 01/13/2024 7:38 AM CDT [facility] Sodium 138 135 - 145 mmol/L 01/13/2024 7:38 AM CDT [facility] Potassium 3.6 3.4 - 5.1 mmol/L 01/13/2024 7:38 AM CDT [facility] Chloride 104 97 - 110 mmol/L 01/13/2024 7:38 AM CDT [facility] Carbon Dioxide 30 21 - 32 mmol/L 01/13/2024 7:38 AM CDT [facility] Anion Gap 8 7 - 19 mmol/L 01/13/2024 7:38 AM [facility] Glucose 143(H) 70 - 99 mg/dL 01/13/2024 7:38 AM [facility] BUN 20 6 - 20 mg/dL 01/13/2024 7:38 AM [facility] Creatinine 1.16(H) 0.51 - 0.95 mg/dL 01/13/2024 7:38 AM [facility] Glomerular Filtration Rate 56(L) >=60 01/13/2024 7:38 AM [facility] Comment:eGFR 30-59 mL/min/1. 73m2 = Moderate decrease in kidney function. Stage 3 CKD (chronic kidney disease) or moderate kidney disease. Estimated GFR calculated using the CKD-EPI-R (2020) equation that does not include race in the creatinine calculation. BUN/Cr 17 7 - 25 01/13/2024 7:38 AM [facility] Calcium 8.9 8.4 - 10.2 mg/dL 01/13/2024 7:38 AM [facility] Bilirubin, Total 0.7 0.2 - 1.0 mg/dL 01/13/2024 7:38 AM [facility] GOT/AST 16 <=37 Units/L 01/13/2024 7:38 AM [facility] GPT/ALT 18 <64 Units/L 01/13/2024 7:38 AM [facility] Alkaline Phosphatase 119(H) 45 - 117 Units/L 01/13/2024 7:38 AM [facility] Albumin 3.0(L) 3.6 - 5.1 g/dL 01/13/2024 7:38 AM [facility] Protein, Total 6.9 6.4 - 8.2 g/dL 01/13/2024 7:38 AM [facility] Globulin 3.9 2.0 - 4.0 g/dL 01/13/2024 7:38 AM [facility] A/G Ratio 0.8(L) 1.0 - 2.4 01/13/2024 7:38 AM [facility] Blood VENOUS BLOOD SPECIMEN / Unknown Venipuncture / Unknown 01/13/2024 7:10 AM CDT 01/13/2024 7:15 AM CDT Nicholas Rios DO BKR LAB BLOOD ORDERA BLES [facility] [address] [place] [address] from Last 3 Months or Most Recently Relevant to Health Maintenance Advance Directives * Selective Treatment/DNR (Latest Code Status on File) Date Activated Date Inactivated Comments 01/09/2024 3:54 PM 01/11/2024 1:38 PM Question Answer Comments CPR in case of Cardiac Arrest? No Intubation ( Pre-Arrest ) ? Yes Antiarrhythmics (Pre-Arrest)? Yes Cardioversion (Pre-Arrest)? Yes Vasopressor (Pre-Arrest)? Yes Care Teams Egg Trayer Relationship Specialty Start Date End Date Marleni Jung [id number] [place] [phone] PCP - General Family Practice 01/09/24
--- OUTSIDE RECORDS SUMMARY | 2024-08-28 13:20 | XMS_ITS | Encounter Summary ---
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 file Not on file Not on file documented as of this encounter Progress Notes * Amilcar, Documents - 06/18/2008 11:55 AM ECHOCARDIOGRAPH TECHNICIAN CARDIOGRAPH TECHNICIAN documented in this encounter Plan of Treatment Not on file documented as of this encounter Visit Diagnoses Not on filedocumented in this encounter Care Teams Field Evidence Technician Relationship Specialty Start Date End Date Raquel Gauthier MD [address] [place] [id number] PCP - General 10/30/09 10/30/09 NoneAurelio MD [address] [place] [id number] PCP - General 03/11/14 Bakari Vasquez DO [address] [place] [address] PCP - General 01/31/13 03/10/14 Bakari Vasquez DO [address] [place] [address] PCP - General 01/25/13 01/30/13 Bakari Vasquez DO [address] [place] [address] PCP - General 01/21/13 01/24/13 Bakari Vasquez DO [address] [place] [address] PCP - General 01/09/13 01/20/13 Bakari Vasquez DO [address] [place] [address] PCP - General 01/03/13 01/08/13 Bakari Vasquez DO [address] [facility] [address] [place] [address] PCP - General 01/01/13 01/02/13 Bakari Vasquez DO [address] [facility] [address] [place] [address] PCP - General 12/25/12 12/31/12 documented as of this encounter
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
--- OUTSIDE RECORDS SUMMARY | 2024-08-28 13:20 | XMS_ITS | Encounter Summary ---
Author Organization [facility] Address [address] [place] [id number] Care Team Providers Care Public Works Director Name Role Phone Raquel Gauthier MD Primary Care Provider [phone] None, Provider Primary Care Provider Unavaila ble [...] Visit * Reason Comments Discharge Summary (SCAN) [facility] Encounter Details Date Type Department Care Team (Late st Contact Info) Description 07/15/2008 [facility] [address] [place] [id number] Scanned, Documents Discharge Summary (SCAN) ([facility]) Social History Tobacco Use Types Packs/Day Years [...] 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 on file Not on file Not on file documented as of this encounter Progress Notes * Amilcar Documents - 07/29/2008 3:00 PM [employer]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 documented in this encounter Plan of Treatment Not on file documented as of this encounter Visit Diagnoses Not on filedocumented in this encounter Care Teams Public Works Director Relationship Specialty Start Date End Date Raquel Gauthier MD [address] [place] [id number] PCP - General 10/30/09 10/30/09 None, MD Aurelio [address] [place] [id number] PCP - General 03/11/14 Bakari Vasquez DO [address] [place] [address] PCP - General 01/31/13 03/10/14 Bakari Vasquez DO [address] [place] [address] PCP - General 01/25/13 01/30/13 Bakari Vasquez DO [address] [place] [address] PCP - General 01/21/13 01/24/13 Bakari Vasquez DO [address] [place] [address] PCP - General 01/09/13 01/20/13 Bakari Vasquez DO [address] [place] [address] PCP - General 01/03/13 01/08/13 Bakari Vasquez DO [address] [facility] [address] [place] [address] PCP - General 01/01/13 01/02/13 Bakari Vasquez DO [address] [facility] [address] [place] [address] PCP - General 12/25/12 12/31/12 documented as of this encounter
--- OUTSIDE RECORDS SUMMARY | 2024-08-28 13:20 | XMS_ITS | Patient Health Record ---
Author Organization [facility] [employer] Address [address] [facility] [address] [place] [address] Care Team Providers Care J2Ee Android Developer Name Role Phone Fabiana PAZ, Marleni Primary Care Provider Terrie Lucie Otero Unavailable [phone] Migration, Provider Unavailable Unavailable Allergies Allergen (clinical drug ingredient) Drug/Non Drug Allergy documented on EMR Reaction Allergy Type Onset Date Status INFLUENZA A (H5N1) VIRUS VACCINE MONOVAL (18 YR +) (uncoded) Unknown Allergy 10/14/2023 Active Substance with sulfonamide structure and antibacterial mechanism of action (substance) SULFA (SULFONAMIDE ANTIBIOTICS) (uncoded) Unknown Allergy 10/14/2023 Active doxycycline Doxycycline Unknown Drug Allergy 10/14/2023 Ac tive Reason For Referral No Information Medications Medication SIG (Take, Route, Frequency, Duration) Notes Start Date End Date Status hydrOXYzine HCl 10 MG 1 tablet Oral three times a day for 90 days Active hydrOXYzine HCl 50 MG 1 tablet Oral bedtime for 90 days Active lamoTRIgine 25 MG 2 tablet in the morning Oral once a day for 90 days Active metFORMIN HCl ER 500 MG Oral 10/14/2023 Not-Taking buPROPion HCl ER (SR) 200 MG TAKE 1 TABLET BY MOUTH DAILY for 90 Active Loxapine 10 mg Oral *Pick strength-form from Press Play for eRX* 10/14/2023 Not-Taking buPROPion HCl ER (XL) 300 MG Oral 10/14/2023 Not-Taking lamoTRIgine 25 MG 2 tablet in the morning Oral once a day for 90 days Active Furosemide 40 MG Oral 10/14/2023 Ac tive QUEtiapine Fumarate ER 300 MG 1 tablet in the evening Oral Once a day for 90 days Active Doxepin HCl 25 MG Oral 10/14/2023 N ot-Taking buPROPion HCl ER (SR) 200 MG take 1 tablet Oral Once a day for 90 days Active Montelukast Sodium 10 MG Oral 10/14/2023 Active Social History Tobacco Use: Social History [...] Problem Bipolar affective disorder, currently depressed, mild (985668140) Bipolar disorder, current episode depressed, mild (F31.31) 4 Active confirmed Problem Generalized anxiety disorder (05033730) Generalized anxiety disorder (F41.1) 4 Active confirmed Problem Posttraumatic stress disorder (83644214) Post-traumatic stress disorder, chronic (F43.12) 4 Active confirmed Problem Insomnia disorder related to another mental disorder (87975223) Insomnia due to other mental disorder (F51.05) 4 Active confirmed Vital Signs Heart Rate 80 /min 04/27/2024 Height-cm 175.26 cm 04/27/2024 Blood pressure diastolic 85 mm Hg 04/27/2024 Weight-kg 112.4 kg 04/27/2024 Height 69.00 in 04/27/2024 Blood pressure systolic 124 mm Hg 04/27/2024 Weight 247.8 lbs 04/27/2024 BMI 36.59 kg/m2 04/27/2024 Encounters Encounter Location Date Provider Diagnosis [facility] [employer] [facility] [address] [facility] [address] [facility] [address] [place] [address] 09/12/2023 Lucie Amaya Other assisted (current) drug therapy Z79.899 ; Other specified nonscarring hair loss L65.8 ; Bipolar disorder, current episode depressed, mild F31.31 ; Generalized anxiety disorder F41.1 ; Abnormal weight gain R63.5 ; Hyperlipidemia, unspecified E78.5 ; Type 2 diabetes mellitus with unspecified complications E11.8 ; Insomnia due to other mental disorder F51.05 and Primary insomnia F51.01 [employer] [facility] [address] [facility] [address] [facility] [address] [place] [address] 10/14/2023 Lucie Amaya Generalized anxiety disorder F41.1 ; Bipolar disorder, current episode depressed, mild F31.31 ; Other specified nonscarring hair loss L65.8 ; 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 ; Post-traumatic stress disorder, chronic F43.12 ; Hyperlipidemia, unspecified E78.5 ; Primary insomnia F51.01 ; Type 2 diabetes mellitus with unspecified complications E11.8 ; Insomnia due to other mental disorder F51.05 and Abnormal weight gain R63.5 [employer] [facility] [address] [facility] [address] [place] [address] 01/26/2024 Lucie Amaya Bipolar disorder, current episode depressed, mild F31.31 ; Generalized anxiety disorder F41.1 ; Post-traumatic stress disorder, chronic F43.12 and Insomnia due to other mental disorder F51.05 [facility], [facility] [address] [facility] [address] [place] [address] 04/27/2024 Lucie Therisidro Bipolar disorder, current episode depressed, mild F31.31 ; Generalized anxiety disorder F41.1 ; Post-traumatic stress disorder, chronic F43.12 and Insomnia due to other mental disorder F51.05 [facility] [address] [facility] [address] [place] [address] 07/30/2024 Lucie Therisidro Bipolar disorder, current episode depressed, mild F31.31 ; Generalized anxiety disorder F41.1 ; Post-traumatic stress disorder, chronic F43.12 and Insomnia due to other mental disorder F51.05 [facility] [address] [address] 12/03/2023 Provider Migration [facility], [facility] [address] [facility] [address] [place] [address] 12/04/2023 Provider Migration [facility], [facility] [address] [address] 02/02/2024 Lucie Amaya [facility], [place] [address] [address] 05/16/2024 Lucie Amaya [facility] [address] [address] 05/16/2024 Lucie Amaya Bipolar disorder, current episode depressed, mild F31.31 [facility] [address] [facility] [address] [place] [address] 05/18/2024 Lucie Therisidro Bipolar disorder, current episode depressed, mild F31.31 [facility], [facility] [address] [address] 05/18/2024 Lucie Thery [facility], [place] [address] [address] 07/04/2024 Lucie Amaya Assessments Encounter Date Diagnosis (ICD Code) Assessment Notes Treatment Notes Treatment Clinical Notes Section Notes 09/12/2023 Type 2 diabetes mellitus with unspecified [...] weight gain (ICD-10 - R63.5) 09/12/2023 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 Qty: (120) tablet Refills: 2 Pharmacy: [facility] #[id number] 2. Generalized anxiety disorder -Hydroxyzine 50 mg at bedtime as needed for anxiety and panic no refill neededHydroxyzine 10 mg three times a day as needed- no refill needed Bupropion SR 200 mg in amF41.1: Generalized anxiety disordermedical issuses 3. Chronic post-traumatic stress disorder -continue fucfebjT78.12: Post-traumatic stress disorder, chronic 4. Insomnia disorder [...] depression. Qty: (120) tablet Refills: 2 Pharmacy: [facility] #[id number] 2. Generalized anxiety disorder -Hydroxyzine 50 mg at bedtime as needed for anxiety and panic no refill needed Hydroxyzine 10 mg three times a day as needed- no refill needed Bupropion SR 200 mg in amF41.1: Generalized anxiety disorder medical issuses 3. Chronic post-traumatic stress disorder -continue whwydavA02.12: Post-traumatic stress disorder, chronic 4. Insomnia disorder [...] depression. Qty: (120) tablet Refills: 2 Pharmacy: [facility] #[id number] 2. Generalized anxiety disorder -Hydroxyzine 50 mg at bedtime as needed for anxiety and panic no refill needed Hydroxyzine 10 mg three times a day as needed- no refill needed Bupropion SR 200 mg in amF41.1: Generalized anxiety disorder medical issuses 3. Chronic post-traumatic stress disorder -continue ihgnyasZ64.12: Post-traumatic stress disorder, chronic 4. Insomnia disorder [...] reported Lamotrigine 50 mg twice a day 07/30/2024 Bipolar disorder, current episode depressed, mild [...] disabling or disfiguring. Comment reaction include, nausea/vomiting, dizziness/vertigo , visual disturbances, somnolence, ataxia, pruritus/rash, pharyngitis, headache, [...] disabling or disfiguring. Comment reaction include, nausea/vomiting, dizziness/vertigo , visual disturbances, somnolence, ataxia, pruritus/rash, pharyngitis, headache, [...] any of the serious side effect develops. 04/27/2024 Generalized anxiety disorder (ICD-10 - F41.1) [...] depression. Qty: (120) tablet Refills: 2 Pharmacy: [facility] #[id number] 2. Generalized anxiety disorder -Hydroxyzine 50 mg at bedtime as needed for anxiety and panic no refill needed Hydroxyzine 10 mg three times a day as needed- no refill needed Bupropion SR 200 mg in amF41.1: Generalized anxiety disorder medical issuses 3. Chronic post-traumatic stress disorder -continue uhsbgpnZ45.12: Post-traumatic stress disorder, chronic 4. Insomnia disorder [...] depression. Qty: (120) tablet Refills: 2 Pharmacy: [facility] #[id number] 2. Generalized anxiety disorder -Hydroxyzine 50 mg at bedtime as needed for anxiety and panic no refill needed Hydroxyzine 10 mg three times a day as needed- no refill needed Bupropion SR 200 mg in amF41.1: Generalized anxiety disorder medical issuses 3. Chronic post-traumatic stress disorder -continue jrgxytvV33.12: Post-traumatic stress disorder, chronic 4. Insomnia disorder [...] as needed OTC 5. Long-term drug therapy 07/30/2024 Post-traumatic stress disorder, chronic (ICD-10 - [...] disabling or disfiguring. Comment reaction include, nausea/vomiting, dizziness/vertigo , visual disturbances, somnolence, ataxia, pruritus/rash, pharyngitis, headache, [...] disabling or disfiguring. Comment reaction include, nausea/vomiting, dizziness/vertigo , visual disturbances, somnolence, ataxia, pruritus/rash, pharyngitis, headache, [...] any of the serious side effect develops. 04/27/2024 Insomnia due to other mental disorder [...] depression. Qty: (120) tablet Refills: 2 Pharmacy: [facility] #[id number] 2. Generalized anxiety disorder -Hydroxyzine 50 mg at bedtime as needed for anxiety and panic no refill needed Hydroxyzine 10 mg three times a day as needed- no refill needed Bupropion SR 200 mg in amF41.1: Generalized anxiety disorder medical issuses 3. Chronic post-traumatic stress disorder -continue vjcemnmQ57.12: Post-traumatic stress disorder, chronic 4. Insomnia disorder related to another mental disorder -Melatonin 3 mg at bedtime as needed OTCF51.05: Insomnia due to other mental disorder 5. Long-term drug therapy Plan Of Treatment Next Appt Details Provider Name:Lucie Jose Luis , 10/23/2024 10:45:00 AM, [address], [place], [address], Insurance Providers Payer Name Payer Address Payer Phone Subscriber Number Group Number Insured Name Patient Relationship to Insured Coverage Start Date Coverage End Date Jeevan dougherty Ppo [address] [place] [phone] [id number] MAKENNA OSMAN Self - patient is the [...] kidney Surgical History Surgery Date(Month/Year) Endometrial ablation (10950) Other Removal of gallbladder (39825) Any surgical history cyst liver and kidney
--- OUTSIDE RECORDS SUMMARY | 2024-08-28 13:20 | XMS_ITS | Referral Summary ---
Author Organization [facility] Address [address] [place] [address] Care Team Providers Care Antenna Rigger Name Role Phone Marleni Jung MD Primary Care Provider + Source Comments [facility],non-owned Affiliates and Associated Physician Practices is amultiple site organization consisting of ambulatory clinics and hospital sitesin [place], [place], [place] and [place]. This disclosure is being madepursuant to the Care Everywhere program and may not contain all information available regarding this patient. Last updated 18.[facility] [employer] Social History Tobacco Use Types Packs/Day Years Used Date Smoking Tobacco: Never Assessed Sex and Gender Information Value Date Recorded Sex Assigned at Not on file Gender Identity Not on file Sexual Orientation Not on file Plan of Treatment Upcoming Encounters Date Type Department Care Team (Late st Contact Info) Description 09/27/2024 11:30 AM CDT Office Visit [facility] - [address] [facility] [place] [address] Marcos Ferrer MD [address] [place] [address] Care Teams Antenna Rigger Relationship Specialty Start Date End Date Marleni Jung MD [address] [facility] [address] [place] [address] PCP - General Family Medicine 03/03/24
--- OUTSIDE RECORDS SUMMARY | 2024-08-28 13:21 | XMS_ITS | Encounter Summary ---
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 Not on file Not on file documented as of this encounter Progress Notes * Amilcar, Documents - 06/18/2008 11:55 AM ADMISSIONS CONSULTANT SSIONS CONSULTANT * Debbined, Documents - 06/07/2008 11:56 AM ADMISSIONS CONSULTANT SSIONS CONSULTANT documented in this encounter Plan of Treatment Not on file documented as of this encounter Visit Diagnoses Not on filedocumented in this encounter Care Teams Extension Forester Relationship Specialty Start Date End Date Raquel Gauthier MD [address] [place], [place] [id number] PCP - General 10/30/09 10/30/09 Aurelio Osei MD [address] [place] [address] PCP - General 03/11/14 Bakari Vasquez DO [address] [place] [address] PCP - General 01/31/13 03/10/14 Bakari Vasquez DO [address] [place] [address] PCP - General 01/25/13 01/30/13 Bakari Vasquez DO [address] [place] [address] PCP - General 01/21/13 01/24/13 Bakari Vasquez DO [address] [place] [address] PCP - General 01/09/13 01/20/13 Bakari Vasquez DO [address] [place] [address] PCP - General 01/03/13 01/08/13 Bakari Vasquez DO [address] [facility] [address] [place] [address] PCP - General 01/01/13 01/02/13 Bakari Vasquez DO [address] [facility] [address] [place] [address] PCP - General 12/25/12 12/31/12 documented as of this encounter
--- OUTSIDE RECORDS SUMMARY | 2024-08-28 13:21 | XMS_ITS ---
Author Organization [facility] [employer] [facility] Address [facility] [address] [facility] [address] [place] [address] Care Team Providers Care Beauty Culture Teacher Name Role Phone Marleni Jung MD Primary Care Provider Terrie Lucie Otero Unavailable [phone] REASON FOR VISIT Refill Buproprion Social History Sex Assigned At : Social History Observation Description Sex Assigned At Female Encounters Encounter Location Date Provider Diagnosis [facility] [place] [address] [facility] [address] [facility] [address] [place] [address] 07/04/2024 Lucie Amaya Plan Of Treatment Next Appt Details Provider Name:Lucie Amaya , 10/23/2024 10:45:00 AM, [address], 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
--- OUTSIDE RECORDS SUMMARY | 2024-08-28 13:21 | XMS_ITS | Encounter Summary ---
Author Organization [facility] Address [address] [place] [address] Care Team Providers Care Nuclear Operator Name Role Phone Raquel Gauthier MD Primary Care Provider [phone] Samir Gonzalez MD Primary Care Provider + [...] Visit * Reason Comments Hospital H&P (SCAN) [facility] ER Note (SCAN) Encounter Details Date Type Department Care Team (Late st Contact Info) Description 11/12/2005 [facility] BUSINESS OFFICE [address] [place] [phone] Scanned, Documents Hospital H&P (SCAN) ([facility]); ER Note (SCAN) Social History Tobacco [...] on filedocumented in this encounter Care Teams Nuclear Operator Relationship Specialty Start Date End Date Raquel Gauthier MD [address] [place] [address] PCP - General 10/30/09 10/30/09 Samir Gonzalez MD [address] [place] [address] PCP - General 07/18/07 07/18/07 Samir Gonzalez MD [address] [place] [address] PCP - General 04/05/02 07/17/07 Aurelio Osei MD [address] [place] [address] PCP - General 03/11/14 Bakari Vasquez DO [address] [place] [address] PCP - General 01/31/13 03/10/14 Bakari Vasquez DO [address] [place] [address] PCP - General 01/25/13 01/30/13 Bakari Vasquez DO [address] [place] [address] PCP - General 01/21/13 01/24/13 Bakari Vasquez DO [address] [facility] [address] [place] [address] PCP - General 01/09/13 01/20/13 Bakari Vasquez DO [address] [facility] [address] [place], [place] [phone] PCP - General 01/03/13 01/08/13 Bakari Vasquez DO [address] [facility] [address] [place], [place] [phone] PCP - General 01/01/13 01/02/13 Bakari Vasquez DO [address] [facility] [address] [place], [place] [phone] PCP - General 12/25/12 12/31/12 documented as of this encounter
--- OUTSIDE RECORDS SUMMARY | 2024-08-28 13:21 | XMS_ITS | Encounter Summary ---
Author Organization [facility] Address [address] [place] [address] Care Team Providers Care Corporate Traffic Manager Name Role Phone Raquel Gauthier MD Primary Care Provider [phone] Samir Gonzalez MD Primary Care Provider + [...] Visit * Reason Comments Discharge Summary (SCAN) [facility] Encounter Details Date Type Department Care Team (Late st Contact Info) Description 11/13/2005 [facility] BUSINESS OFFICE [address] [place] [phone] Scanned, Documents Discharge Summary (SCAN) ([facility]) Social History Tobacco Use Types Packs/Day Years [...] 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 Not on file Not on file documented as of this encounter Plan of Treatment Not on file documented as of this encounter Visit Diagnoses Not on filedocumented in this encounter Care Teams Corporate Traffic Manager Relationship Specialty Start Date End Date Raquel Gauthier MD [facility] [place] [address] PCP - General 10/30/09 10/30/09 Samir Gonzalez MD [address] [place] [address] PCP - General 07/18/07 07/18/07 Samir Gonzalez MD [address] [place] [address] PCP - General 04/05/02 07/17/07 Aurelio Osei MD [address] [place] [address] PCP - General 03/11/14 Bakari Vasquez DO [address] [facility] [address] [place] [address] PCP - General 01/31/13 03/10/14 Bakari Vasquez DO [address] [place] [address] PCP - General 01/25/13 01/30/13 Bakari Vasquez DO [address] [facility] [address] [place] [address] PCP - General 01/21/13 01/24/13 Bakari Vasquez DO [address] [facility] [address] [place] [address] PCP - General 01/09/13 01/20/13 Bakari Vasquez DO [address] [facility] [address] [place] [address] PCP - General 01/03/13 01/08/13 Bakari Vasquez DO [address] [facility] [address] [place] [address] PCP - General 01/01/13 01/02/13 Bakari Vasquez DO [address] [facility] [address] [place] [address] PCP - General 12/25/12 12/31/12 documented as of this encounter
--- OUTSIDE RECORDS SUMMARY | 2024-08-28 13:21 | XMS_ITS | Encounter Summary ---
Author Organization 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 Not on file Not on file documented as of this encounter Progress Notes * Zscanned, Documents - 07/05/2008 4:06 PM STUDENT DEVELOPMENT COORDINATOR ENT DEVELOPMENT COORDINATOR * Zscanned, Documents - 07/01/2008 1:22 PM STUDENT DEVELOPMENT COORDINATOR ENT DEVELOPMENT COORDINATOR documented in this encounter Plan of Treatment Not on file documented as of this encounter Visit Diagnoses Not on filedocumented in this encounter Care Teams Cruise Staff Member Relationship Specialty Start Date End Date Raquel Gauthier MD [address] [place], [place] [phone] PCP - General 10/30/09 10/30/09 Aurelio Osei MD [address] [place] [address] PCP - General 03/11/14 Bakari Vasquez DO [address] [place] [address] PCP - General 01/31/13 03/10/14 Bakari Vasquez DO [address] [place] [address] PCP - General 01/25/13 01/30/13 Bakari Vasquez DO [address] [place] [address] PCP - General 01/21/13 01/24/13 Bakari Vasquez DO [address] [place] [address] PCP - General 01/09/13 01/20/13 Bakari Vasquez DO [address] [place] [address] PCP - General 01/03/13 01/08/13 Bakari Vasquez DO [address] [facility] [address] [place], [place] [phone] PCP - General 01/01/13 01/02/13 Bakari Vasquez DO [address] [facility] 20 [place], [place] [phone] PCP - General 12/25/12 12/31/12 documented as of this encounter
--- OUTSIDE RECORDS SUMMARY | 2024-08-28 13:21 | XMS_ITS | Encounter Summary ---
Author Organization [facility] Address [address] [place] [address] Care Team Providers Care Diesel Instructor Name Role Phone Raquel Gauthier MD Primary Care Provider [phone] None, Provider Primary Care Provider Unavaila ble [...] Team (Late st Contact Info) Description 05/30/2008 [facility] OFF[facility] [address] [place] [address] Scanned, Documents ER Note (SCAN) (GASTROENTERITIS [...] * Amilcar, Documents - 07/04/2008 11:48 AM AIR BAG BUILDER BAG BUILDER * Zscanned, Documents - 06/18/2008 11:55 AM AIR BAG BUILDER BAG BUILDER documented in this encounter Plan of Treatment Not on file documented as of this encounter Visit Diagnoses Not on filedocumented in this encounter Care Teams Diesel Instructor Relationship Specialty [place] [address] [place] [address] [id number] PCP - General 10/30/09 10/30/09 None, MD Aurelio [address] [place] [address] PCP - General 03/11/14 Bakari Vasquez DO [address] [place] [address] PCP - General 01/31/13 03/10/14 Bakari Vasquez DO [address] [place] [address] PCP - General 01/25/13 01/30/13 Bakari Vasquez DO [address] [place] [address] PCP - General 01/21/13 01/24/13 Bakari Vasquez DO [address] [place] [address] PCP - General 01/09/13 01/20/13 Bakari Vasquez DO [address] [place] [address] PCP - General 01/03/13 01/08/13 Bakari Vasquez DO [address] [facility] [address] [place], [place] [id number] PCP - General 01/01/13 01/02/13 Bakari Vasquez DO [address] [facility] [address] [place], [place] [id number] PCP - General 12/25/12 12/31/12 documented as of this encounter
--- OUTSIDE RECORDS SUMMARY | 2024-08-28 13:21 | XMS_ITS ---
Author Organization [facility] Address [facility] [facility] [address] [facility] [address] [place] [address] Care Team Providers Care Marketing Writer Name Role Phone Marleni Jung MD Primary Care Provider Terrie Lucie Otero Unavailable [phone] REASON FOR VISIT RE:Refill Request Social History Sex Assigned At : Social History Observation Description Sex Assigned At Female Encounters Encounter Location Date Provider Diagnosis [facility] [employer] [place] [address] [facility] [address] [facility] [address] [place] [address] 05/18/2024 Lucie Amaya Plan Of Treatment Next Appt Details Provider Name:Lucie Amaya , 10/23/2024 10:45:00 AM, [address], [facility] [address], [place], [address], Progress Notes * GEOFFREY OSMANOB: [birth year] (54 yo F)Acc No.[id number]:05/18/2024 Patient: MAKENNA DEWITT :1970 A ge:54 Y S ex:Female Address:[address], [place], [address] * true * Date: Generated for Birdie washington/Elsie/eTransmitting on: 0 08/28/2024 01:20 PM EMPLOYEE OPERATIONS EXAMINER
[2024-08-28 13:39] LABS: Influenza A QL RT-PCR Negative (Negative); Influenza B QL RT-PCR Negative (Negative); RSV RNA, RT-PCR Negative (Negative); SARS-CoV-2 RNA PCR Negative (Negative)
== END 2024-08-28 12:24 | disposition home or self-care (01) ==
PROVIDERS: PCP Family Medicine; Visit Provider Student in an Organized Health Care Education/Training Program
DX: R05.9 Cough, unspecified (principal); Z20.822 Contact with and (suspected) exposure to COVID-19
CPT/HCPCS: 71046; 87637

== ENCOUNTER 2024-11-17 11:21 | Outpatient (CLI) | payer OTHER, SELFPAY ==
[2024-11-17 12:20] LABS: Influenza A QL RT-PCR Negative (Negative); Influenza B QL RT-PCR Negative (Negative); SARS-CoV-2 RNA PCR Negative (Negative)
--- OUTSIDE RECORDS SUMMARY | 2024-11-17 16:29 | XMS_ITS | Patient Health Record ---
Author Organization [facility] [employer] Address [address] [place] [address] Care Team Providers Care Firmware Developer Name Role Phone Fabiana PAZ, Marleni Primary Care Provider Terrie Lucie Otero Unavailable [phone] Migration, Provider Unavailable Unavailable Allergies Allergen (clinical [...] HCl ER 500 MG Oral 10/14/2023 Not-Taking QUEtiapine Fumarate ER 300 MG 1 tablet in the evening Oral Once a day for 30 days d/c 200 mg dose d/c Vraylar Active Montelukast Sodium 10 MG Oral 10/14/2023 Active Furosemide 40 MG Oral 10/14/2023 Ac tive hydrOXYzine HCl 10 MG 1 tablet Oral three times a day for 90 days Active Doxepin HCl 25 MG Oral 10/14/2023 N ot-Taking hydrOXYzine HCl 50 MG 1 tablet Oral bedtime for 90 days Active Loxapine 10 mg Oral *Pick strength-form from [employer] for [employer]* 10/14/2023 Not-Taking buPROPion HCl ER (SR) 200 MG take 1 tablet Oral Once a day for 90 days Active buPROPion HCl ER (XL) 300 MG Oral 10/14/2023 Not-Taking lamoTRIgine 25 MG 2 tablet in the morning Oral once a day for 90 days Active Social History Tobacco Use: Social History [...] NoDo you have a medical power of securities attorney?: NoPublic Health and TravelHave you been to an area known to be high risk for COVID-19?: NoGender Identity and LGBTQ IdentityGender identity: Identifies as FemaleAssigned sex at : FemaleSexual orientation: Straight or heterosexual Problems Problem Type SNOMED Code ICD Code Onset Dates Problem Status W/U Status Risk Notes Problem Bipolar affective disorder, currently depressed, mild (066682808) Bipolar disorder, current episode depressed, mild (F31.31) Active confirmed Problem Generalized anxiety disorder (51747917) Generalized anxiety disorder (F41.1) 4 Active confirmed Problem Posttraumatic stress disorder (64307601) Post-traumatic stress disorder, chronic (F43.12) 4 Active confirmed Problem Insomnia disorder related to another mental disorder (96640940) Insomnia due to other mental disorder (F51.05) 4 Active confirmed Vital Signs Heart Rate 80 /min 10/30/2024 Respiratory Rate 16 /min 10/30/2024 Height-cm 175.26 cm 10/30/2024 Blood pressure diastolic 88 mm Hg 10/30/2024 Weight-kg 108.86 kg 10/30/2024 Height 69.00 in 10/30/2024 Blood pressure systolic 119 mm Hg 10/30/2024 Weight 240 lbs 10/30/2024 BMI 35.44 kg/m2 10/30/2024 Encounters Encounter Location Date Provider Diagnosis [facility] [employer] [facility] [address] [address] 01/26/2024 Lucie Amaya Bipolar disorder, current episode depressed, mild F31.31 ; Generalized anxiety disorder F41.1 ; Post-traumatic stress disorder, chronic F43.12 and Insomnia due to other mental disorder F51.05 [facility] [employer] [facility] [address] [address] 04/27/2024 Lucie Amaya Bipolar disorder, current episode depressed, mild F31.31 ; Generalized anxiety disorder F41.1 ; Post-traumatic stress disorder, chronic F43.12 and Insomnia due to other mental disorder F51.05 [facility] [employer] [facility] [address] [address] 07/30/2024 Lucie Amaya Bipolar disorder, current episode depressed, mild F31.31 ; Generalized anxiety disorder F41.1 ; Post-traumatic stress disorder, chronic F43.12 and Insomnia due to other mental disorder F51.05 [facility] [employer] [facility] [address] [address] 10/23/2024 Lucie Amaya [facility] [employer] [facility] [address] [address] 10/30/2024 Lucie Amaya Bipolar disorder, current episode depressed, mild F31.31 ; Generalized anxiety disorder F41.1 ; Post-traumatic stress disorder, chronic F43.12 ; Insomnia due to other mental disorder F51.05 ; Encounter for screening for cardiovascular disorders Z13.6 and Encounter for screening for depression Z13.31 [place] [address] [facility] [address] [address] 12/03/2023 Provider Migration [address] [address] 12/04/2023 Provider Migration [address] [address] 02/02/2024 Lucie Therisidro [address] [address] 05/16/2024 Lucie Thery [address] [address] 05/16/2024 Lucie Therisidro Bipolar disorder, current episode depressed, mild F31.[address] [address] 11/16/2024 Lucie Thery Bipolar disorder, current episode depressed, mild F31.[address] [address] 05/18/2024 Lucie Thery Bipolar disorder, current episode depressed, mild F31.[address] [address] 05/18/2024 Lucie Thery [address] [address] 07/04/2024 Lucielexi Amaya Assessments Encounter Date Diagnosis (ICD Code) Assessment Notes Treatment Notes Treatment Clinical Notes Section Notes 01/26/2024 Bipolar disorder, current episode depressed, mild [...] depression. Qty: (120) tablet Refills: 2 Pharmacy: [facility] #[id number] 2. Generalized anxiety disorder -Hydroxyzine 50 mg at bedtime as needed for anxiety and panic no refill neededHydroxyzine 10 mg three times a day as needed- no refill needed Bupropion SR 200 mg in amF41.1: Generalized anxiety disordermedical issuses 3. Chronic post-traumatic stress disorder -continue uxpbypvC96.12: Post-traumatic stress disorder, chronic 4. Insomnia disorder [...] depression. Qty: (120) tablet Refills: 2 Pharmacy: [facility] #[id number] 2. Generalized anxiety disorder -Hydroxyzine 50 mg at bedtime as needed for anxiety and panic no refill needed Hydroxyzine 10 mg three times a day as needed- no refill needed Bupropion SR 200 mg in amF41.1: Generalized anxiety disorder medical issuses 3. Chronic post-traumatic stress disorder -continue bsrufqmA17.12: Post-traumatic stress disorder, chronic 4. Insomnia disorder [...] depression. Qty: (120) tablet Refills: 2 Pharmacy: [facility] #[id number] 2. Generalized anxiety disorder -Hydroxyzine 50 mg at bedtime as needed for anxiety and panic no refill needed Hydroxyzine 10 mg three times a day as needed- no refill needed Bupropion SR 200 mg in amF41.1: Generalized anxiety disorder medical issuses 3. Chronic post-traumatic stress disorder -continue llsealtW52.12: Post-traumatic stress disorder, chronic 4. Insomnia disorder [...] any of the serious side effect develops. 10/30/2024 Bipolar disorder, current episode depressed, mild (ICD-10 - F31.31) 1. Bipolar I disorder, most recent episode depression - choronic psychosis, paranoia hx Caplyta improved depression (chronic psychosis and paranoia)- too expensive discuss Seroquel GDR and adding Vraylar for Bipolar educated on rx decrase Seroquel ER 200 mg at bedtime- GDR Add Vraylar 1.5 mg daily- samples # 28 will be on 2 antipsychotic while taper off Seroquel and adjusting Vraylar to therapeutic dose Discuss rx for psychosis, dano and hypomania, depression, anxiety, paranoia, and help with sleep- Lamotrigine 50 mg in am Kurt labs - educated on metabolic and movement d/o educated [...] foot/ankle r/o movement AIMS= 1 04/27/24 bridge reviewed PCP notes and labs in chart Stacey 2. Generalized anxiety disorder -Hydroxyzine 50 mg [...] any of the serious side effect develops. 11/16/2024 Bipolar disorder, current episode depressed, mild (ICD-10 - F31.31) 10/30/2024 Generalized anxiety disorder (ICD-10 - F41.1) Learning About Generalized Anxiety Disorder material was published, Generalized Anxiety Disorder: Care Instructions material was published, Learning About Anxiety Disorders material was published 1. Bipolar I disorder, most recent episode depression - choronic psychosis, paranoia hx Caplyta improved depression (chronic psychosis and paranoia)- too expensive discuss Seroquel GDR and adding Vraylar for Bipolar educated on rx decrase Seroquel ER 200 mg at bedtime- GDR Add Vraylar 1.5 mg daily- samples # 28 will be on 2 antipsychotic while taper off Seroquel and adjusting Vraylar to therapeutic dose Discuss rx for psychosis, dano and hypomania, depression, anxiety, paranoia, and help with sleep- Lamotrigine 50 mg in am Kurt labs - educated on metabolic and movement d/o educated [...] foot/ankle r/o movement AIMS= 1 04/27/24 bridge reviewed PCP notes and labs in chart Stacey 2. Generalized anxiety disorder -Hydroxyzine 50 mg [...] depression. Qty: (120) tablet Refills: 2 Pharmacy: [facility] #[id number] 2. Generalized anxiety disorder -Hydroxyzine 50 mg at bedtime as needed for anxiety and panic no refill needed Hydroxyzine 10 mg three times a day as needed- no refill needed Bupropion SR 200 mg in amF41.1: Generalized anxiety disorder medical issuses 3. Chronic post-traumatic stress disorder -continue cttehibO74.12: Post-traumatic stress disorder, chronic 4. Insomnia disorder [...] depression. Qty: (120) tablet Refills: 2 Pharmacy: [facility] #[id number] 2. Generalized anxiety disorder -Hydroxyzine 50 mg at bedtime as needed for anxiety and panic no refill needed Hydroxyzine 10 mg three times a day as needed- no refill needed Bupropion SR 200 mg in amF41.1: Generalized anxiety disorder medical issuses 3. Chronic post-traumatic stress disorder -continue [id number]: Post-traumatic stress disorder, chronic 4. Insomnia disorder [...] any of the serious side effect develops. 10/30/2024 Post-traumatic stress disorder, chronic (ICD-10 - F43.12) Post-Traumatic Stress Disorder (PTSD): Care Instructions material was published 1. Bipolar I disorder, most recent episode depression - choronic psychosis, paranoia hx Caplyta improved depression (chronic psychosis and paranoia)- too expensive discuss Seroquel GDR and adding Vraylar for Bipolar educated on rx decrase Seroquel ER 200 mg at bedtime- GDR Add Vraylar 1.5 mg daily- samples # 28 will be on 2 antipsychotic while taper off Seroquel and adjusting Vraylar to therapeutic dose Discuss rx for psychosis, dano and hypomania, depression, anxiety, paranoia, and help with sleep- Lamotrigine 50 mg in am Kurt labs - educated on metabolic and movement d/o educated [...] foot/ankle r/o movement AIMS= 1 04/27/24 bridge reviewed PCP notes and labs in chart Stacey 2. Generalized anxiety disorder -Hydroxyzine 50 mg [...] any of the serious side effect develops. 10/30/2024 Insomnia due to other mental disorder (ICD-10 - F51.05) 1. Bipolar I disorder, most recent episode depression - choronic psychosis, paranoia hx Caplyta improved depression (chronic psychosis and paranoia)- too expensive discuss Seroquel GDR and adding Vraylar for Bipolar educated on rx decrase Seroquel ER 200 mg at bedtime- GDR Add Vraylar 1.5 mg daily- samples # 28 will be on 2 antipsychotic while taper off Seroquel and adjusting Vraylar to therapeutic dose Discuss rx for psychosis, dano and hypomania, depression, anxiety, paranoia, and help with sleep- Lamotrigine 50 mg in am Kurt labs - educated on metabolic and movement d/o educated [...] foot/ankle r/o movement AIMS= 1 04/27/24 bridge reviewed PCP notes and labs in chart Stacey 2. Generalized anxiety disorder -Hydroxyzine 50 mg [...] as needed OTC 5. Long-term drug therapy 10/30/2024 Encounter for screening for cardiovascular disorders (ICD-10 - Z13.6) 1. Bipolar I disorder, most recent episode depression - choronic psychosis, paranoia hx Caplyta improved depression (chronic psychosis and paranoia)- too expensive discuss Seroquel GDR and adding Vraylar for Bipolar educated on rx decrase Seroquel ER 200 mg at bedtime- GDR Add Vraylar 1.5 mg daily- samples # 28 will be on 2 antipsychotic while taper off Seroquel and adjusting Vraylar to therapeutic dose Discuss rx for psychosis, dano and hypomania, depression, anxiety, paranoia, and help with sleep- Lamotrigine 50 mg in am Kurt labs - educated on metabolic and movement d/o educated [...] foot/ankle r/o movement AIMS= 1 04/27/24 bridge reviewed PCP notes and labs in chart Stacey 2. Generalized anxiety disorder -Hydroxyzine 50 mg [...] any of the serious side effect develops. 10/30/2024 Encounter for screening for depression (ICD-10 - Z13.31) 1. Bipolar I disorder, most recent episode depression - choronic psychosis, paranoia hx Caplyta improved depression (chronic psychosis and paranoia)- too expensive discuss Seroquel GDR and adding Vraylar for Bipolar educated on rx decrase Seroquel ER 200 mg at bedtime- GDR Add Vraylar 1.5 mg daily- samples # 28 will be on 2 antipsychotic while taper off Seroquel and adjusting Vraylar to therapeutic dose Discuss rx for psychosis, dano and hypomania, depression, anxiety, paranoia, and help with sleep- Lamotrigine 50 mg in am Kurt labs - educated on metabolic and movement d/o educated [...] foot/ankle r/o movement AIMS= 1 04/27/24 bridge reviewed PCP notes and labs in chart Stacey 2. Generalized anxiety disorder -Hydroxyzine 50 mg [...] any of the serious side effect develops. 01/26/2024 Other Quetiapine Exte nded Release Oral [...] depression. Qty: (120) tablet Refills: 2 Pharmacy: [facility] #[id number] 2. Generalized anxiety disorder -Hydroxyzine 50 mg at bedtime as needed for anxiety and panic no refill needed Hydroxyzine 10 mg three times a day as needed- no refill needed Bupropion SR 200 mg in amF41.1: Generalized anxiety disorder medical issuses 3. Chronic post-traumatic stress disorder -continue fulhqdkM12.12: Post-traumatic stress disorder, chronic 4. Insomnia disorder related to another mental disorder -Melatonin 3 mg at bedtime as needed OTCF51.05: Insomnia due to other mental disorder 5. Long-term drug therapy Plan Of Treatment Next Appt Details Provider Name:Lucie Amaya , 11/20/2024 01:30:00 PM, [address], [address], [place], [address], Insurance Providers Payer Name Payer Address Payer Phone Subscriber Number Group Number Insured Name Patient Relationship to Insured Coverage Start Date Coverage End Date [employer] [address] [place] [address] [id number] MAKENNA OSMAN Self - patient is the [...] kidney Surgical History Surgery Date(Month/Year) Endometrial ablation (29889) Other Removal of gallbladder (98789) Any surgical history cyst liver and kidney
--- OUTSIDE RECORDS SUMMARY | 2024-11-17 16:29 | XMS_ITS | Clinical Summary ---
Author Organization [facility] Address [address] [facility] [place] [address] Care Team Providers Care Manager Privacy Name Role Phone Marleni Jung MD Primary Care Provider + Source Comments [facility],non-owned Affiliates and Associated Physician Practices is amultiple site organization consisting of ambulatory clinics and hospital sitesin [place], [place], [place] and [place]. This disclosure is being madepursuant to the Care Everywhere program and may not contain all information available regarding this patient. Last updated 18.[facility] Allergies Active Allergy Reactions Criticality Noted Date Comments Cefazolin Cough 09/27/2024 Doxycycline Cough,Shortness of Breath,Unknown High 0 08/28/2014 Sulfa Antibiotics Rash High 06/10/2004 Medications * Be aware that medications may not be up to date on this document. Alwaysverify current medications with the patient. buPROPion SR 12hr (Wellbutrin SR) 200 MG tablet Take 1 (one) tablet by mouth every morning 12/19/2023 Active furosemide (Lasix) 40 MG tablet Take 1 (one) tablet by mouth once daily 10/14/2023 Active hydrOXYzine HCl (Atarax) 10 MG tablet Take 1 (one) tablet by mouth 3 times daily as needed 12/20/2023 Active hydrOXYzine HCl (Atarax) 50 MG tablet Take 1 (one) tablet by mouth once daily Active montelukast (Singulair) 10 MG tablet Take 1 (one) tablet by mouth once daily 10/14/2023 Active metFORMIN ER 24hr (Glucophage XR) 500 MG tablet Take 1 (one) tablet by mouth daily with dinner 10/14/2023 Active lamoTRIgine (LaMICtal) 25 MG tablet Take 2 (two) tablets by mouth once daily 12/18/2023 Active QUEtiapine XR 24hr (SEROquel XR) 300 MG tablet Take 1 (one) tablet by mouth every evening Active omega 3 (Fish Oil) 1200 MG capsule Take 1 (one) capsule by mouth once daily Active lactobacillus extra strength (Florajen) capsule Take 1 (one) capsule by mouth once daily Active biotin 2.5 MG tablets Take 1 (one) tablet by mouth once daily Active Saw [place], Serenoa repens, (SAW [place] PO) Active vitamin D3 (Cholecalcifero l) 25 MCG (1000 UNITS) tablet Take 5 (five) tablets by mouth once daily Active vitamin A 3 MG (78133 UT) capsule Take by mouth once daily Active Encounters Date Type Department Care Team Description 09/27/2024 11:30 AM CDT Office Visit [facility] - [address] [address] Marcos Ferrer MD Polycystic liver disease (Primary Dx); Encounter for screening for other viral diseases; Metabolic dysfunction-associate d steatotic liver disease (MASLD) 09/27/2024 Travel from Last 3 Months Family History Medical History Relation Name Comments Renal Disease Father Polysystic kid jimmy disease, ESRD Renal Disease Sister 1 Polycystic kid jimmy disease Renal Disease Sister 2 Polycystic kid jimmy disease Relation Name Status Comments Father Sister 1 Sister 2 Social History Tobacco Use Types Packs/Day Years Used Date Smoking Tobacco: Never Smokeless Tobacco: Never Tobacco Cessation:Counseling Given: Not Answered Alcohol Use Standard Drinks/Week Comments Never 0 (1 standard drink = 0.6 oz pur e alcohol) Comments Unknown Sex and Gender Information Value Date Recorded Sex Assigned at Female 10/15/2024 9:05 AM CDT Legal Sex Female 2:09 PM [employer] Gender Identity Female 10/15/2024 9:05 AM CDT Sexual Orientation Straight 10/15/2024 9: 05 AM CDT Last Filed Vital Signs Vital Sign Reading Time Taken Comments Blood Pressure 132/90 09/27/2024 12:33 PM CDT Pulse 82 09/27/2024 12:33 PM CDT Temperature 36.6 C (97.9 F) 09/27/2024 12:33 PM CDT Respiratory Rate - - Oxygen Saturation 98% 09/27/2024 12:33 PM CDT Inhaled Oxygen Concentration - - Weight 108.9 kg (240 lb) 09/27/2024 12:33 PM CDT Height 175.3 cm (5' 9 ) 09/27/2024 12:33 PM CDT Body Mass Index 35.44 09/27/2024 12:33 PM CDT Plan of Treatment Health Maintenance [...] VACCINE (1 of 2) 2019 COVID-19 VACCINE ( - 2023-2 5 season) 2024 DEPRESSION SCREENING 07/18/2024 SCREENING FOR DIABETES 09/27/2024 INFLUENZA VACCINE (Season Ended) 2025 05/24/20 08 HIB VACCINE Aged Out No longer eligi ble based on patient's age to complete this topic HPV VACCINE Aged Out No longer eligi ble based on patient's age to complete this topic MENINGOCOCCAL (Group B) VACC INE SHARED DECISION-MAKING Aged Out No longer eligibl e based on patient's age to complete this topic MENINGOCOCCAL GROUPS A/C/Y/W VACCINE Aged Out No longer eligible b ased on patient's age to complete this topic Goals Goal Patient Goal Type Associated Problems Recent Progress Patient-Stated? Author Medication Management General On track( 025 12:32 PM CDT) Tracy Kraus RN Note: Expected end date: ongoing Interventions: Take all medications as prescribed Let your doctor know right away about any changes in your medications Make sure to request a refill of your medication at least one week prior to your last dose Procedures Procedure Name Priority Date/Time Associated Diagnosis Comments HEPATITIS B CORE ANTIBODY TOTAL Routine 10/01/2024 9:27 AM CDT Polycystic liver disease Encounter for screening for other viral diseases Metabolic dysfunction-associa jorge steatotic liver disease (MASLD) HEPATITIS B SURFACE ANTIGEN W RFLX CONFIRMATION Routine 10/01/2024 9:27 AM CDT Polycystic liver disease Encounter for screening for other viral diseases Metabolic dysfunction-associa jorge steatotic liver disease (MASLD) HEPATITIS B SURFACE ANTIBODY QUANT Routine 10/01/2024 9:27 AM CDT Polycystic liver disease Encounter for screening for other viral diseases Metabolic dysfunction-associa jorge steatotic liver disease (MASLD) HEPATITIS A ANTIBODY Routine 10/01/2024 9:27 AM CDT Polycystic liver disease Encounter for screening for other viral diseases Metabolic dysfunction-associa jorge steatotic liver disease (MASLD) GGT Routine 10/01/2024 9:27 AM CDT Polycystic liver disease Metabolic dysfunction-associa jorge steatotic liver disease (MASLD) HEPATIC FUNCTION PANEL Routine 10/01/2024 9:27 AM CDT Polycystic liver disease Metabolic dysfunction-associa jorge steatotic liver disease (MASLD) from Last 3 Months Results * (ABNORMAL) HEPATITIS B SURFACE ANTIBODY QUANT (10/01/2024 9:27 AM CDT) Hepatitis B Virus Surface Antibody Quantitative <5(L) > OR = 10 mIU/mL [facility] Comment: Patient does not have immunity to hepatitis B virus. For additional information, please refer to http://education.MyWants/faq/RRH850 (This link is being provided for informational/ educational purposes only). Test Performed at: [place] [address] CINDI LUCIA MD Blood BLOOD SPECIMEN / Unknown 10/01/2024 9:27 AM CDT 10/01/2024 9:28 AM CDT Marcos Ferrer MD LAB - SEROLOGY ORDERABLES Fin al Result Performing Organization Address [facility] Co de Phone Number [facility] [address] [place] [address] * HEPATIC FUNCTION PANEL (10/01/2024 9:27 AM CDT) Pathologist [facility] Protein Total 7.3 6.1 - 8.1 g/dL [facility] Albumin 4.3 3.6 - 5.1 g/dL [facility] Globulin Total 3.0 1.9 - 3.7 g/dL (calc) [facility] Albumin/Globulin Ratio 1.4 1.0 - 2.5 (calc) [facility] Bilirubin Total 0.7 0.2 - 1.2 mg/dL [facility] Bilirubin Direct 0.1 < OR = 0.2 mg/dL [facility] Bilirubin Indirect 0.6 0.2 - 1.2 mg/dL (calc) [facility] Alkaline Phosphatase 116 37 - 153 U/L [facility] AST 14 10 - 35 U/L [facility] ALT 15 6 - 29 U/L [facility] Comment: Test Performed at: [facility] [place] [address] CINDI LUCIA MD Blood BLOOD SPECIMEN / Unknown 10/01/2024 9:27 AM CDT 10/01/2024 9:28 AM CDT Marcos Ferrer MD LAB - CHEMISTRY ORDERABLES Fi nal Result Performing Organization Address [facility] Co de Phone Number [facility] [address] [place] [address] * HEPATITIS B CORE ANTIBODY TOTAL (10/01/2024 9:27 AM CDT) Pathologist [facility] Hepatitis B Core Virus Antibody Total NON-REACTI VE NON-REACT ANISHA [facility] Comment: For additional information, please refer to http://TIMPIK.MyWants/faq/MOY177 (This link is being provided for informational/ educational purposes only.) Test Performed at: [employer] [place] [address] CINDI LUCIA MD Blood BLOOD SPECIMEN / Unknown 10/01/2024 9:27 AM CDT 10/01/2024 9:28 AM CDT Marcos Ferrer MD LAB - CHEMISTRY ORDERABLES Fi nal Result Performing Organization Address [facility] de Phone Number [place] [phone] * HEPATITIS B SURFACE ANTIGEN W RFLX CONFIRMATION (10/01/2024 9:27 AM CDT) Pathologist [facility] Hepatitis B Virus Surface Antigen NON-REACT ANISHA NON-REACT ANISHA [facility] Comment: For additional information, please refer to http://TIMPIK.MyWants/faq/EXA185 (This link is being provided for informational/ educational purposes only.) Test Performed at: [employer] [place] [address] CINDI LUCIA MD Confirmation [facility] Comment: Test Performed at: [employer] [place] [address] CINDI LUCIA MD Blood BLOOD SPECIMEN / Unknown 10/01/2024 9:27 AM CDT 10/01/2024 9:28 AM CDT Marcos Ferrer MD LAB - CHEMISTRY ORDERABLES Fi nal Result Performing Organization Address [facility] de Phone Number [facility] [phone] [place] [phone] * GGT (10/01/2024 9:27 AM CDT) Pathologist [facility] GGT 25 3 - 70 U/L [facility] Comment: Test Performed at: [place] [address] CINDI LUCIA MD Blood BLOOD SPECIMEN / Unknown 10/01/2024 9:27 AM CDT 10/01/2024 9:28 AM CDT Marcos Ferrer MD LAB - CHEMISTRY ORDERABLES Fi nal Result Performing Organization Address [facility] de Phone Number [facility] [address] [place] [address] * HEPATITIS A ANTIBODY (10/01/2024 9:27 AM CDT) Hepatitis A Virus Antibody Total NON-REACTI VE NON-REACT ANISHA [facility] Comment: For additional information, please refer to http://education.MyWants/faq/OLY499 (This link is being provided for informational/ educational purposes only.) Test Performed at: [facility] [id number] [place] [address] CINDI LUCIA MD Blood BLOOD SPECIMEN / Unknown 10/01/2024 9:27 AM CDT 10/01/2024 9:28 AM CDT Marcos Ferrer MD LAB - CHEMISTRY ORDERABLES Fi nal Result Performing Organization Address [facility] de Phone Number [facility] [address] [place] [address] from Last 3 Months Insurance [facility] Care Teams Manager Privacy Relationship Specialty Start Date End Date Marleni Jung MD [address] [place] [address] PCP - General Family Medicine 03/03/24
--- OUTSIDE RECORDS SUMMARY | 2024-11-17 16:29 | XMS_ITS ---
Author Organization [facility] [employer] Address [address] [place] [address] Care Team Providers Care Poker Supervisor Name Role Phone Marleni Jung MD Primary Care Provider Terrie Lucie Otero Unavailable [phone] REASON FOR VISIT Sleep medication Medications Medication SIG (Take, Route, Frequency, Duration) Notes Start Date End Date Status QUEtiapine Fumarate ER 300 MG 1 tablet in the evening Oral Once a day for 30 days d/c 200 mg dose d/c Vraylar Active Social History Sex Assigned At : Social History Observation Description Sex Assigned At Female Encounters Encounter Location Date Provider Diagnosis [facility] [employer] [place] [id number] [facility] [address] [facility] [address] [place] [address] 11/16/2024 Lucie Amaya Bipolar disorder, current episode depressed, mild F31.31 Assessments Encounter Date Diagnosis (ICD Code) Assessment Notes Treatment Notes Treatment Clinical Notes Section Notes 11/16/2024 Bipolar disorder, current episode depressed, mild (ICD-10 - F31.31) Plan Of Treatment Medication Medication Name Sig Start Date Stop Date Notes QUEtiapine Fumarate ER 300 MG 1 tablet in the evening Oral Once a day for 30 days d/c 200 mg dose d/c Vraylar Cariprazine HCl 1.5 MG 1 capsule Orally Once a day 10/30/2024 Next Appt Details Provider Name:Lucie Amaya , 11/20/2024 01:30:00 PM, [address], [address], [place], [address], Progress Notes * MAKENNA OSMAN LDOB:[birth year] (54 yo F)Acc No.[id number]:11/16/2024 Patient: MAKENNA DEWITT :1970 A ge:54 Y S ex:Female Phone: Address:[address], [place], [address] * Refills Refill QUEtiapine Fumarate ER Tablet Extended Release 24 Hour, 300 MG, Oral, 30, 1 tablet in the evening, Once a day, 30 days, Refills=0 Stop Cariprazine HCl Capsule, 1.5 MG, Orally, 1 capsule, Once a day * true * Date: Generated for Birdie washington/Elsie/Urvashiitting on: 0 11/17/2024 04:29 PM CDT
--- OUTSIDE RECORDS SUMMARY | 2024-11-17 16:29 | XMS_ITS | Data Portability ---
Author Organization [facility], Main Office Address [address] [place] [address] Care Team Providers Care Glass Finisher Name Role Phone CHRISTIAN GEORGE Primary Care Provider [phone] CHRISTIAN GEORGE Referring Provider Assessment Encounter Date Assessment Date Assessment LastModified by Organization Details LastModified Time 10/12/2022 10/12/2022 Blood work Will have her see Cardiology about her veins Sleep study Targets for blood pressure A1c and lipid discussed Follow-up 4 months [email or web address] Not available 10/12/2022 22:55:15 Plan of Treatment [...] 3.910 uIU/m L 0.465- 4.680 Not Available [facility] (Lab) [address] [place], [address], 06/15/2022 21:20:58 06/15/20 22 06/15/2022 T3 FREE free T3 3.2 pg/mL 2.77-5 .27 Not Available [facility] (Lab) [address] [place], [address], 06/15/2022 21:15:55 06/15/20 22 06/15/2022 T4 FREE free T4 1.31 NG/dL 0.78-2 .19 Not Available [facility] (Lab) [address] [place], [address], 06/15/2022 21:15:50 06/15/20 22 06/15/2022 HEMOG LOBIN A1C HA1C 5.3 % 4.0-6. 0 Diabe magdiel Scree alan Crite erwin: <5.7% Consi stent with absen ce of diabe magdiel 5.7-6 .4% Consi stent with incre ased risk for diabe magdiel (pred iabet es) >OR=6 .5% Consi stent with diabe magdiel REFER ENCE: Diabe magdiel Care 2016, 39(Levin ppl.1 ):s13 -s22 Not Available [facility] (Lab) [address] [place], [address], 06/15/2022 21:07:56 06/15/20 22 06/15/2022 COMPR EHENS ANISHA METAB OLIC PANEL anion gap 15.3 mmol/ L 14-22 Not Available [facility] (Lab) [address] [place], [address], 06/15/2022 20:49:07 06/15/20 22 06/15/2022 COMPR EHENS ANISHA METAB OLIC PANEL sodium 140 mmol/ L 137-14 5 Not Available [facility] (Lab) [address] [place], [address], 06/15/2022 20:49:07 06/15/20 22 06/15/2022 COMPR EHENS ANISHA METAB OLIC PANEL potassium 4.3 mmol/ L 3.5-5. 1 Not Available [facility] (Lab) [address] [place], [address], 06/15/2022 20:49:07 06/15/20 22 06/15/2022 COMPR EHENS ANISHA METAB OLIC PANEL chloride 101 mmol/ L 98-107 Not Available [facility] (Lab) [address] [place], [address], 06/15/2022 20:49:07 06/15/20 22 06/15/2022 COMPR EHENS ANISHA METAB OLIC PANEL carbon dioxide 28 mmol/ L 22-30 Not Available [facility] (Lab) [address] [place], [address], 06/15/2022 20:49:07 06/15/20 22 06/15/2022 COMPR EHENS ANISHA METAB OLIC PANEL glucose 98 mg/dL 70-99 Not Available [facility] (Lab) [address] [place], [address], 06/15/2022 20:49:07 06/15/20 22 06/15/2022 COMPR EHENS ANISHA METAB OLIC PANEL BUN 17 mg/dL 8-19 Not Available [facility] (Lab) [address] [place], [address], 06/15/2022 20:49:07 06/15/20 22 06/15/2022 COMPR EHENS ANISHA METAB OLIC PANEL creatinine 1.07 mg/dL 0.66-1 .25 Not Available [facility] (Lab) [address] [place], [address], 06/15/2022 20:49:07 06/15/20 22 06/15/2022 COMPR EHENS ANISHA METAB OLIC PANEL GFR 54 Refer ence Range : [place] ge GFR Healt hy Adult : >60 [...] calcu lator is avail able on the [facility] websi te: https ://ww w.kid jimmy.o rg/pr ofess ional s/kdo qi/gf r_cal culat or Not Available [facility] (Lab) [address] [place], [address], 06/15/2022 20:49:07 06/15/20 22 06/15/2022 COMPR EHENS ANISHA METAB OLIC PANEL alkaline phosphatase 114 U/L 38-126 Not Available [facility] (Lab) [address] [place], [address], 06/15/2022 20:49:07 06/15/20 22 06/15/2022 COMPR EHENS ANISHA METAB OLIC PANEL alanine aminotransfe rase 36 U/L 0-35 high Not Available [facility] (Lab) [address] [place], [address], 06/15/2022 20:49:07 06/15/20 22 06/15/2022 COMPR EHENS ANISHA METAB OLIC PANEL aspartate aminotransfe rase 39 U/L 15-37 high Not Available [facility] (Lab) [address] [place], [address], 06/15/2022 20:49:07 06/15/20 22 06/15/2022 COMPR EHENS ANISHA METAB OLIC PANEL bilirubin, total 1.20 mg/dL 0.20-1 .30 Not Available [facility] (Lab) [address] [place], [address], 06/15/2022 20:49:07 06/15/20 22 06/15/2022 COMPR EHENS ANISHA METAB OLIC PANEL calcium 9.6 mg/dL 8.4-10 .2 Not Available [facility] (Lab) [address] [place], [address], 06/15/2022 20:49:07 06/15/20 22 06/15/2022 COMPR EHENS ANISHA METAB OLIC PANEL total protein 8.2 g/dL 6.3-8. 2 Not Available [facility] (Lab) [address] [facility] [place], [address], 06/15/2022 20:49:07 06/15/20 22 06/15/2022 COMPR EHENS ANISHA METAB OLIC PANEL albumin 4.8 g/dL 3.4-5. 0 Not Available [facility] (Lab) [address] [place], [address], 06/15/2022 20:49:07 06/15/20 22 06/15/2022 COMPR EHENS ANISHA METAB OLIC PANEL globulin 3.4 g/dL 2.6-4. 2 Not Available [facility] (Lab) [address] [place], [address], 06/15/2022 20:49:07 06/15/20 22 06/15/2022 COMPR EHENS ANISHA METAB OLIC PANEL A/G ratio 1.4 ratio 1.0-2. 0 Not Available [facility] (Lab) [address] [place], [address], 06/15/2022 20:49:07 06/15/20 22 06/15/2022 LIPID PANEL cholesterol 238 mg/dL 140-19 9 high NIH ALEX NSUS RECOM MENDA TION FOR JIM STERO L: ADULT CHILD LOW RISK: <200 <170 BORDE RLINE : <200- 239 ----- HIGH RISK: >240 >200 Not Available [facility] (Lab) [address] [place], [address], 06/15/2022 20:49:02 06/15/20 22 06/15/2022 LIPID PANEL triglyceride s 109 mg/dL 0-150 NIH ALEX NSUS REPOR T RECOM MENDA TION FOR TRIGL YCERI VI: ADULT CHILD LOW RISK: <150 ----- BODER LINE: 150-1 99 ----- HIGH RISK: >200 ----- Not Available [facility] (Lab) [address] [place], [address], 06/15/2022 20:49:02 06/15/20 22 06/15/2022 LIPID PANEL HDL cholesterol 83 mg/dL 40- Not Available [facility] (Lab) [address] [place], [address], 06/15/2022 20:49:02 06/15/20 22 06/15/2022 LIPID PANEL [...] WILL NOT BE REPOR NANCY. Not Available [facility] (Lab) [address] [place], [address], 06/15/2022 20:49:02 06/15/20 22 06/15/2022 CBC/C OMPLE TE BLD COUNT W/DIF F white blood cells 7.8 x10'3 /uL 4.2-10 .8 Not Available [facility] (Lab) [address] [place], [address], 06/15/2022 19:52:59 06/15/20 22 06/15/2022 CBC/C OMPLE TE BLD COUNT W/DIF F red blood cells 5.19 x10'6 /uL 3.80-5 .20 Not Available [facility] (Lab) [address] [place], [address], 06/15/2022 19:52:59 06/15/20 22 06/15/2022 CBC/C OMPLE TE BLD COUNT W/DIF F hemoglobin 15.2 g/dL 12.0-1 5.6 Not Available [facility] (Lab) [address] [place], [address], 06/15/2022 19:52:59 06/15/20 22 06/15/2022 CBC/C OMPLE TE BLD COUNT W/DIF F hematocrit 45.4 % 35.7-4 5.7 Not Available [facility] (Lab) [address] [place], [address], 06/15/2022 19:52:59 06/15/20 22 06/15/2022 CBC/C OMPLE TE BLD COUNT W/DIF F mean red cell volume 87.5 fL 82.0-9 9.0 Not Available [facility] (Lab) [address] [place], [address], 06/15/2022 19:52:59 06/15/20 22 06/15/2022 CBC/C OMPLE TE BLD COUNT W/DIF F mean red cell hemoglobin 29.3 pg 27.0-3 3.0 Not Available [facility] (Lab) [address] [place], [address], 06/15/2022 19:52:59 06/15/20 22 06/15/2022 CBC/C OMPLE TE BLD COUNT W/DIF F mean RBC HGB concentratio n 33.5 g/dL 31.0-3 6.0 Not Available [facility] (Lab) [address] [place], [address], 06/15/2022 19:52:59 11/29/20 22 06/15/2022 CBC/C OMPLE TE BLD COUNT W/DIF F red cell distribution width 14.4 % 11.8-1 5.5 Not Available [facility] (Lab) [address] [place], [address], 06/15/2022 19:52:59 06/15/20 22 06/15/2022 CBC/C OMPLE TE BLD COUNT W/DIF F platelets 210 x10'3 /uL 150-40 0 Not Available [facility] (Lab) [address] [place], [address], 06/15/2022 19:52:59 06/15/20 22 06/15/2022 CBC/C OMPLE TE BLD COUNT W/DIF F mean platelet volume 12.5 fL 9.0-12 .4 high Not Available [facility] (Lab) [address] [place], [address], 06/15/2022 19:52:59 06/15/20 22 06/15/2022 CBC/C OMPLE TE BLD COUNT W/DIF F neutrophils 59.9 % 39.0-7 2.0 Not Available [facility] (Lab) [address] [place], [address], 06/15/2022 19:52:59 06/15/20 22 06/15/2022 CBC/C OMPLE TE BLD COUNT W/DIF F lymphocytes 31.5 % 16.0-4 7.0 Not Available [facility] (Lab) [address] [place], [address], 06/15/2022 19:52:59 06/15/20 22 06/15/2022 CBC/C OMPLE TE BLD COUNT W/DIF F monocytes 5.5 % 5.0-12 .0 Not Available [facility] (Lab) [address] [place], [address], 06/15/2022 19:52:59 06/15/20 22 06/15/2022 CBC/C OMPLE TE BLD COUNT W/DIF F eosinophils 2.1 % 1.0-7. 0 Not Available [facility] (Lab) [address] [place], [address], 06/15/2022 19:52:59 06/15/20 22 06/15/2022 CBC/C OMPLE TE BLD COUNT W/DIF F basophils 0.6 % 0.0-2. 0 Not Available [facility] (Lab) [address] [place], [address], 06/15/2022 19:52:59 06/15/20 22 06/15/2022 CBC/C OMPLE TE BLD COUNT W/DIF F immature granulocytes 0.4 % 0.00-0 .50 Not Available [facility] (Lab) [address] [place], [address], 06/15/2022 19:52:59 06/15/20 22 06/15/2022 CBC/C OMPLE TE BLD COUNT W/DIF F neutrophils, absolute count 4.65 x10'3 /uL 1.5-8. 0 Not Available [facility] (Lab) [address] [place], [address], 06/15/2022 19:52:59 06/15/20 22 06/15/2022 CBC/C OMPLE TE BLD COUNT W/DIF F lymphocytes, absolute count 2.45 x10'3 /uL 1.07-3 .43 Not Available [facility] (Lab) [address] [place], [address], 06/15/2022 19:52:59 06/15/20 22 06/15/2022 CBC/C OMPLE TE BLD COUNT W/DIF F monocytes, absolute count 0.43 x10'3 /uL 0.29-0 .99 Not Available [facility] (Lab) [address] [place], [address], 06/15/2022 19:52:59 06/15/20 22 06/15/2022 CBC/C OMPLE TE BLD COUNT W/DIF F eosinophils, absolute count 0.16 x10'3 /uL 0.02-0 .53 Not Available [facility] (Lab) [address] [place], [address], 06/15/2022 19:52:59 06/15/20 22 06/15/2022 CBC/C OMPLE TE BLD COUNT W/DIF F basophils, absolute count 0.05 x10'3 /uL 0.01-0 .08 Not Available [facility] (Lab) [address] [place], [address], 06/15/2022 19:52:59 06/15/20 22 06/15/2022 CBC/C OMPLE TE BLD COUNT W/DIF F immature granulocytes ,absolute 0.03 x10'3 /uL 0.00-0 .05 Not Available [facility] (Lab) [address] [place], [address], 06/15/2022 19:52:59 06/15/20 22 06/15/2022 CBC/C OMPLE TE BLD COUNT W/DIF F nucleated red blood cells 0.0 % -0 Not Available [facility] (Lab) [address] [place], [address], 06/15/2022 19:52:59 06/15/20 22 06/15/2022 CBC/C OMPLE TE BLD COUNT W/DIF F NRBC# 0.00 x10'3 /uL Not Available [facility] (Lab) [address] [place], [address], 06/15/2022 19:52:59 Result Notes None recorded. Problems Name Problem SNOMED Code Status Onset Date Resolution Date Notes Provider Name and Address Organization Details Recorded Time Varicose veins of lower extremity 38106993 Active 2022 HOLLY Tan - [facility] 3 15:52:00 Sleep disorder 44739071 Active 2022 GEOVANNY Roland, [facility] 3 17:13:30 Bipolar disorder 53663866 Active 2016 Not Available [facility] 3 03:14:58 Blood glucose outside reference range 609911466 Active Not Available [facility] 3 03:14:58 Postoperative visit 456590949 Active 2020 Not Available [facility] 3 03:14:58 Equinus contracture of the ankle 740745040 Active 2020 Not Available [facility] 3 03:14:58 Postoperative pain 097366692 Active 2020 Not Available [facility] 3 03:14:58 Enthesopathy of foot region 208613193 Active 2020 Not Available [facility] 3 03:14:59 Adult type polycystic kidney disease type 2 830260458 Active 2019 Not Available [facility] 3 03:14:59 Edema 359584627 Active Not Available [facility] 3 03:14:59 Hypertriglyce ridemia 990006067 Active 2016 Not Available [facility] 3 03:14:59 Type 2 diabetes mellitus without complication 274032936 Active 2021 Not Available [facility] 3 03:14:59 Depressive disorder 24058470 Active Not Available [facility] 3 03:14:59 Sinusitis 54639616 Active Not Available [facility] 3 03:14:59 Dyslipidemia 295383556 Active 2021 Not Available [facility] 3 03:14:59 Posttraumatic stress disorder 70120435 Active 2016 Not Available [facility] 3 03:14:59 Upper respiratory infection 22445568 Active 2021 Not Available [facility] 3 03:14:59 Dysfunction of eustachian tube 98914569 Active Not Available [facility] 3 03:14:59 Insertional Achilles tendinopathy 269757315 Active 2020 Not Available [facility] 3 03:14:59 Diabetes mellitus 22207391 Active Not Available [facility] 3 03:14:59 Chronic rhinitis 68045715 Active 2020 Not Available [facility] 3 03:15:00 Problem Notes None recorded. Procedures Surgical History Date Name Laterality Status Provider Name and Address Organization Details Recorded Time 1 Foot Surgery completed Not Available [facility] 023 03:07:49 0 Colonoscopy completed Not Available [facility] 09/16/19 23 03:07:49 Imaging Results None recorded. [...] n rash Not available Not available 09/15/2022 86261 8003 SNOMED Not Available [facility] 3 03:26:30 5860 niacin medicatio n flushing itching Not available Not available Not available 09/15/2022 7393 RxNorm Not Available [facility] 3 03:26:30 Medications Name Sig Start Date [...] e 205.5 mcg (0.15 %) nasal spray [place] 2 sprays twice a day by intranas [...] Updated DateTime 3 172.72 cm 36.2 kg/m2 684593. 98 g 98 [degF] 82 /min 130 mm[Hg] 76 mm[Hg] GEOVANNY Buckley Leno MD [facility] 3 15:03:35 Date Recorded Body mass index (BMI) Body height Heart rate Body temperature Body weight Systolic blood pressure Diastolic blood pressure Provider Name and Address Organization Details Last Updated DateTime 2 32.8 kg/m2 172.72 cm 66 /min 96.4 [degF] 42437.9 5 g 120 mm[Hg] 80 mm[Hg] Not Available [facility] 3 03:10:49 Date Recorded Body mass index (BMI) Body height Heart rate Body temperature Body weight Systolic blood pressure Diastolic blood pressure Provider Name and Address Organization Details Last Updated DateTime 2 31 kg/m2 172.72 cm 76 /min 97.1 [degF] 16345.8 4 g 120 mm[Hg] 80 mm[Hg] Not Available [facility] 3 03:10:49 Date Recorded Body mass index (BMI) Body height Heart rate Body temperature Body weight Systolic blood pressure Diastolic blood pressure Provider Name and Address Organization Details Last Updated DateTime 2 30.7 kg/m2 172.72 cm 70 /min 97.6 [degF] 16199.6 6 g 110 mm[Hg] 77 mm[Hg] Not Available [facility] 3 03:10:50 Date Recorded Body mass index (BMI) Body height Heart rate Body temperature Body weight Systolic blood pressure Diastolic blood pressure Provider Name and Address Organization Details Last Updated DateTime 2 32.5 kg/m2 172.72 cm 78 /min 97.7 [degF] 95961.7 7 g 122 mm[Hg] 68 mm[Hg] Not Available [facility] 3 03:10:50 Social History Question Answer Notes LastModified by Organization Details LastModified Time Tobacco Smoking Status Never Smoker HOLLY Tan Leno MD [facility] 10/12/2022 14:47:59 Do You Have An Advance Directive? No MIGRATION.[id number] [id number] Information not available 09/15/2022 What Is Your Level Of Alcohol Consumption? None MIGRATION.0301 768660 Information not available 09/15/2022 Do You Wear A Helmet When Biking? No Does Not Bike Information not available 10/12/2022 What Is Your Level Of Caffeine Consumption? None MIGRATION.0301 805005 Information not available 09/15/2022 How Much Tobacco Do You Chew? None MIGRATION.0301 [id number] Information not available 09/15/2022 In The 14 [...] Of Diet Are You Following? DIABETIC MIGRATION.0301 [id number] Information not available 09/15/2022 Which Illicit Or Recreational Drugs Have You Used? None Information not available 10/12/2022 Do You Or Have You Ever Used E-cigarettes Or Vape? Never Used Electronic Cigarettes Information not available 10/12/2022 What Is The Highest Grade Or Level Of School You Have Completed Or The Highest Degree You Have Received? [id number] Information not available 10/12/2022 What Is Your [...] Do You Have A Medical Power Of Security Sales Consultant? No Information not available 10/12/2022 What Was The Date Of Your Most Recent Tobacco Screening? 10/12/2022 [email or web address] Information not available 10/12/2022 Do You Have Any Pets? Yes Information not available 10/12/2022 What Is Your Relationship Status? MIGRATION.0301 [id number] Information not available 09/15/2022 Do You Use Your Seat Belt Or Car Seat Routinely? Yes Information not available 10/12/2022 Do You Have Smoke And Carbon Monoxide Detectors In Your Home? Yes Information not available 10/12/2022 Are You Passively Exposed To Smoke? No Information not available 10/12/2022 Do You Or Have You Ever Used Smokeless Tobacco? Never Used Smokeless Tobacco MIGRATION.0301 [id number] Information not available 09/15/2022 Are There Any Smokers In Your House? No Information not available 10/12/2022 How Much Tobacco Do You Smoke? No MIGRATION.0301 905648 Information not available 09/15/2022 What Types Of Sporting Activities Do You Participate In? None Information not available 10/12/2022 Do You Feel Stressed (tense, Restless, Nervous, Or Anxious, Or Unable To Sleep At Night)? [id number] Information not available 10/12/2022 Do You Use [...] Time What is your exercise level? Occasional [id number] 26 Information not available 09/15/2022 Mental Status None recorded. Family History Relationship Description Onset Age of this Age Resolved Age Notes LastModified by Organization Details LastModified Time Father Adult type polycystic kidney disease type 2 MIGRATION.671 [id number] Not available 09/15/2022 03:07:52 Brother Alcoholism MIGRATION.626 [id number] Not available 09/15/2022 03:07:53 Brother Multiple congenital cysts of kidney MIGRATION.057 [id number] Not available 09/15/2022 03:07:53 Sister Multiple congenital cysts of kidney MIGRATION.023 [id number] Not available 09/15/2022 03:07:53 Sister Multiple congenital cysts of kidney MIGRATION.240 [id number] Not available 09/15/2022 03:07:53 Sister Multiple congenital cysts of kidney MIGRATION.098 [id number] Not available 09/15/2022 03:07:53 Daughter Malignant tumor of thyroid gland MIGRATION.584 [id number] Not available 09/15/2022 03:07:53 Medical History Condition [...] HAVE YOU BEEN HOSPITALIZED OR SEEN IN [facility] IN THE PAST YEAR ? N [...] SNOMED-CT Code Diagnosis ICD10 Code Diagnosis Note [id number] [facility] [place] [address] [facility] [address] [place] [address] 10/02/2020 00:00:00 10/06/2020 13:47:25 [id number] [facility] [place] [address] [facility] [address] [place] [address] 10/20/2020 00:00:00 10/20/2020 20:04:31 [id number] Christian George MD [facility] Internal Med [place] [address] [place] [address] [place] [address] 10/30/2020 00:00:00 10/30/2020 22:50:17 [id number] [facility] [place] [address] [facility] [address] [place] [address] 12/08/2020 00:00:00 12/09/2020 08:50:09 [id number] Christian George MD [facility] [place] [address] [place] [address] [place] [address] 03/05/2021 00:00:00 03/08/2021 21:17:45 [id number] Christian George MD [facility] [address] [address] 04/17/2021 00:00:00 04/18/2021 12:35:14 [id number] Christian George MD [facility] Internal Med [place] [address] [place] [address] [place] [address] 07/14/2021 00:00:00 07/14/2021 22:57:32 [id number] Christian George MD [facility] Internal Med [place] [address] [place] [address] [place] [address] 11/10/2021 00:00:00 11/16/2021 23:38:[id number] [facility] Internal [facility] [place] [address] [place] [address] y , [place] [address] 12/08/2021 00:00:00 12/08/2021 21:36:[id number] [facility] Internal [facility] [place] [address] [place] [address] y , [place] [address] 01/05/2022 00:00:00 01/05/2022 21:12:[id number] [facility] Internal [facility] [place] [address] [place] [address] y , [place] [address] 02/18/2022 00:00:00 03/14/2022 16:43:[id number] [facility] Internal [facility] [place] [address] [place] [address] y , [place] [address] 06/15/2022 00:00:00 07/07/2022 12:08:[id number] [facility] Internal Med [place] [address] [place] [address] y , [place] [address] 10/12/2022 14:47:21 10/12/2022 15:55:00 Dyslipidemia 600800458 E78.5 Chronic rhinitis 9557324 6 J31.0 Type 2 andres betes mellitus without complication 564539920 E11.9 Varicose v eins of lower extremity 40694030 I83.93 Health Concerns Section Related Observation LastModified by Organization Detai ls LastModified Time None Recorded Concern Status LastModified by Organization Details LastModified Time None Recorded Advance Directives Directive N: Payers Encounter Date Sequence Insurance Name Policy Number Policy Meier Covered Member ID Meier Member ID Guarantor Name 10/12/2022 1 [facility] [employer] FORMERLY [facility] OPEN ACCESS PLUS (PPO) [id number] Vangie Yuen [id number] Vangie Yuen Notes Date Note Type Note Provider Name and Address Organization Details Recorded Time 10/12/2022 text/html Some snoring perhapsVaricose veins bother herTrouble with her diabetes trying to watch diet Christian George MD [address] [facility] [facility] [address], [place], [address], [facility] 10/12/2022 22:56:01 OBGyn Episode No OBEpisode recorded.
--- OUTSIDE RECORDS SUMMARY | 2024-11-17 16:29 | XMS_ITS | CONTINUITY OF CARE DOCUMENT ---
Author Name leylamarie nicolekaci Address Unknown Organization [facility] Address [address] [place] [address] Phone [phone] Care Team Providers Care Commercial Subcontractor Name Role Phone Amari PAZ, Lalit Unavailable [phone] CHRISTIAN BAILEY MD Unavailable CHRISTIAN BAILEY MD Unavailable PROBLEMS Condition Status Date Provider Notes Venous hypertension - unspecified active Levin steph Fitzpatrick MD Kidney Disease active Lalitmakayla Fitzpatrick MD Hyperlipidemia active Lalit Fitzpatrick MD Diabetes, Type 2 active Lalit Fitzpatrick MD ENCOUNTERS Date Type Provider Location Encounter Diag nosis - In-person encounter Office Visit [facility] Diabetes, Type 2HyperlipidemiaKidney DiseaseVenous hypertension - [...] lcohol Use - no Smoking History: Jonna magnolialouisa has never smoked. Lalit Fitzpatrick MD smoking status Never smoker Taty Coleman INSURANCE PROVIDERS Payer name Policy type / Coverage type [place] red democrat ID [id number] [id number] ADVANCE DIRECTIVES Name Date DISCUSSED - NO DECISION MADE TREATMENT PLAN Date Name Performer [id number] P nichol comes in for evaluation of [...] check venous doppler and f/u Amari PAZ [id number],C, H er updated medication list for this [...] under the skin every week Amari PAZ [id number],C,wc at home Levin steph Fitzpatrick MD [id number],C,a pkd f ather on Amari PAZ Cardiology:Patient [...] Renzo roberts MD Cardiology:apkd f ather on hd Amari PAZ HISTORY OF PROCEDURES Procedure Date Procedure Name Provider Procedure Notes S tatus EKG Amari PAZ completed
== END 2024-11-17 11:22 | disposition home or self-care (01) ==
PROVIDERS: PCP Family Medicine
DX: R05.9 Cough, unspecified (principal); R09.81 Nasal congestion; J02.9 Acute pharyngitis, unspecified; Z20.822 Contact with and (suspected) exposure to COVID-19
CPT/HCPCS: 87636